=== PATIENT | female | born 1930 | race Caucasian/White ===

== ENCOUNTER 2016-12-20 15:32 | Emergency (ER) | payer BC ==
[~2016-12-20] VITALS: Ht 165.1 cm; Wt 102.0 kg
[~2016-12-20 15:32] MED LIST: CALC600T9 PO; CHOL2000 PO; FURO-85 PO; INSDGIPEN SC; LEVO112T4 PO; LISI-729 PO; LPR25 PO; LPT10 PO; MECL1TAB40 PO; OMEG500C2 PO; REPA2TAB13 PO; TRAM-10 PO; VALA1TAB31 PO; WARF5TAB7 PO; WARF6TAB5 PO
[2016-12-20 15:36] VITALS: Ht 165.1 cm; Wt 102.0 kg
[2016-12-20] MEDS ORDERED: WARF4TAB8 PO (17:15)
--- NOTE | 2016-12-20 17:33 | EMERGENCY ROOM VISIT NOTE ---
History Report prepared by Carlos: Moe Moreno Under the Supervision of: Dr. Moe Cabral M.D. First contact with patient: 16:40 Chief Complaint: KNEEPAIN Stated Complaint: IMPAIRED RT KNEE History of Present Illness The patient is a 86 year old female who presents to the Emergency Room with complaints of persistent right sided knee pain beginning about 1 week ago. She describes her pain as sharp and notes it radiates up and down her legs. She states she was seen by an orthopedist last week ago and had x-rays taken and was given medications. She reports the orthopedist noticed crystals on the x- rays. The patient recalls twisting her knee 6 months ago. She notes the pain is worsened with walking, and she finds some relief with applying heat. The patient denies any fever, chills, chest pain, or shortness of breath. She also denies any recent trauma. She denies any history of gout. The patient takes Coumadin for atrial fibrillation. She has been taking Tylenol, but stopped when the pain began. Source of History: patient, spouse/significant other Onset: about 1 week ago Position: knee (right) Quality: sharp, other (radiates up and down leg) Timing: other (persistent) Modifying Factors (Worsening): other (walking) Modifying Factors (Relieving): heat Associated Symptoms: No SOB, No chest pain, No chills, No fevers Review of Systems See HPI for pertinent positives & negatives. A total of 10 systems reviewed and were otherwise negative. Past Medical & Surgical Medical Problems: (1) Benign essential hypertension (2) Chronic kidney disease stage 3 (3) Diabetes mellitus type 2 (4) Hypercholesterolemia (5) Hypothyroidism (6) Iron deficiency (7) Obesity (8) Osteoarthritis of hip Old medical records were reviewed. Nurse's notes were reviewed and I agree with. Family History Diabetes mellitus Hypertension Social History Smoking Status: Never Smoker Drug Use: none Marital Status: Housing Status: lives with significant other Occupation Status: retired Current/Historical Medications Scheduled Atorvastatin (Atorvastatin Calcium), 10 MG PO HS Cholecalciferol (Vitamin D3), 1 CAP PO DAILY Cranberry (Vaccinium Macrocarp (Cranberry), 1 CAP PO DAILY Furosemide (Lasix), 20 MG PO DAILY Gabapentin (Neurontin), 300 MG PO BID Insulin Glargine (Lantus Solostar), 22 UNITS SC HS Levothyroxine Sodium (Levothyroxine Sodium), 112 MCG PO DAILY Lisinopril (Zestril), 5 MG PO DAILY Metoprolol Tartrate (Lopressor), 25 MG PO BID Multiple Vitamin (Multivitamin), 1 TAB PO DAILY Repaglinide (Prandin), 2-4 MG PO UD Warfarin Sod (Jantoven), 5 MG PO 2XWK Warfarin Sod (Jantoven), 4 MG PO 5XWK Scheduled PRN Meclizine HCl (Meclizine HCl), 1-2 TAB PO Q6 PRN for Dizziness or Vertigo Tramadol (Ultram), 50 MG PO Q4H PRN for Pain Miscellaneous Medications Insulin Lispro (Human) (Humalog Kwikpen) Allergies Coded Allergies: No Known Allergies (Unverified , 03/02/15) Physical Exam Vital Signs Date Time Temp Pulse Resp B/P Pulse Ox O2 Delivery O2 Flow Rate FiO2 12/20/16 22:06 36.6 59 16 153/59 95 12/20/16 22:02 59 16 153/59 95 Room Air 12/20/16 20:19 61 16 145/57 99 Room Air 12/20/16 19:28 74 16 168/70 94 Room Air 12/20/16 17:45 50 18 179/70 97 Room Air 12/20/16 15:36 36.6 55 18 121/69 97 Room Air Physical Exam General: Non ill appearing older female, mildly hard of hearing but answers questions appropriately. HEENT: Normal cephalic atraumatic. Pupils are equal round and reactive to light. Extraocular movements are intact. Oropharynx is pink with moist mucous membranes. No swelling of the mouth lips or tongue. Neck: Supple with a midline trachea. No meningeal signs or stiffness, no JVD or bruits. No Stridor. Chest: Scattered wheezing, and dry cough noted. Heart: regular rate and rhythm. Abdomen: Soft nontender, nondistended without rebound guarding or rigidity. Extremities: Lower extremity trace edema. Knee is not red or warm. No evidence of infection. Full range of motion. Spine/Back. Non tender to palpation. No CVA tenderness Skin: Good turgor without rashes. Neurologic exam: Cranial nerves two through 12 are intact. Motor and sensation are intact and symmetrical throughout. Medical Decision & Procedures ER Provider Diagnostic Interpretation: X ray results as stated below per my interpretation and radiologist interpretation. Other radiology results as stated below per my review and radiologist interpretation: RIGHT KNEE 2 VIEWS FINDINGS: There is no fracture or dislocation. Vascular calcifications are noted. The bones are osteopenic. Trace knee effusion. Chondrocalcinosis. Mild tricompartmental osteoarthritis demonstrated by cartilage space narrowing. No radiopaque foreign bodies. IMPRESSION: 1. No fractures within the right knee. 2. Trace knee effusion. 3. Chondrocalcinosis and mild osteoarthritis. Electronically signed by: Bryan Payan M.D. 12/20/2016 6:21 PM Dictated Date/Time: 12/20/2016 6:20 PM Laboratory Results 12/20/16 18:35 Red Blood Count 4.19, Mean Corpuscular Volume 92.8, Mean Corpuscular Hemoglobin 31.7, Mean Corpuscular Hemoglobin Concent 34.2, Mean Platelet Volume 11.3, Neutrophils (%) (Auto) 56.2, Lymphocytes (%) (Auto) 26.2, Monocytes (%) (Auto) 13.8, Eosinophils (%) (Auto) 3.1, Basophils (%) (Auto) 0.4, Neutrophils # (Auto ) 5.81, Lymphocytes # (Auto) 2.71, Monocytes # (Auto) 1.43, Eosinophils # (Auto ) 0.32, Basophils # (Auto) 0.04 12/20/16 18:35 Test 12/20/16 18:35 12/20/16 20:18 White Blood Count 10.34 K/uL (4.8-10.8) Red Blood Count 4.19 M/uL (4.2-5.4) Hemoglobin 13.3 g/dL (12.0-16.0) Hematocrit 38.9 % (37-47) Mean Corpuscular Volume 92.8 fL (80-100) Mean Corpuscular Hemoglobin 31.7 pg (25-34) Mean Corpuscular Hemoglobin Concent 34.2 g/dl (32-36) Platelet Count 236 K/uL (130-400) Mean Platelet Volume 11.3 fL (7.4-10.4) Neutrophils (%) (Auto) 56.2 % Lymphocytes (%) (Auto) 26.2 % Monocytes (%) (Auto) 13.8 % Eosinophils (%) (Auto) 3.1 % Basophils (%) (Auto) 0.4 % Neutrophils # (Auto) 5.81 K/uL (1.4-6.5) Lymphocytes # (Auto) 2.71 K/uL (1.2-3.4) Monocytes # (Auto) 1.43 K/uL (0.11-0.59) Eosinophils # (Auto) 0.32 K/uL (0-0.5) Basophils # (Auto) 0.04 K/uL (0-0.2) RDW Standard Deviation 44.4 fL (36.4-46.3) RDW Coefficient of Variation 13.2 % (11.5-14.5) Immature Granulocyte % (Auto) 0.3 % Immature Granulocyte # (Auto) 0.03 K/uL (0.00-0.02) Erythrocyte Sedimentation Rate 21 mm/hr (0-21) Prothrombin Time 21.3 SECONDS (9.0-12.0) Prothromb Time International Ratio 1.9 (0.9-1.1) Activated Partial Thromboplast Time 31.5 SECONDS (21.0-31.0) Partial Thromboplastin Ratio 1.2 Anion Gap 9.0 mmol/L (3-11) Est Creatinine Clear Calc Drug Dose 25.6 ml/min Estimated GFR () 27.4 Estimated GFR (Non- 23.6 BUN/Creatinine Ratio 25.1 (10-20) Uric Acid 8.4 mg/dl (2.6-7.2) Calcium Level 9.3 mg/dl (8.5-10.1) Total Bilirubin 1.3 mg/dl (0.2-1) Direct Bilirubin 0.2 mg/dl (0-0.2) Aspartate Amino Transf (AST/SGOT) 19 U/L (15-37) Alanine Aminotransferase (ALT/SGPT) 29 U/L (12-78) Alkaline Phosphatase 78 U/L (45-117) C-Reactive Protein 0.47 mg/dl (0-0.29) Total Protein 7.6 gm/dl (6.4-8.2) Albumin 4.0 gm/dl (3.4-5.0) Lipase 499 U/L (73-393) Bedside Glucose 118 mg/dl (70-90) Laboratory studies as stated above per my review. Medications Administered Medications (Trade) Dose Ordered Sig/Tadeo Route Start Time Stop Time Status Last Admin Dose Admin Tramadol HCl (Ultram Tab) 50 mg NOW STAT PO 12/20/16 17:58 12/20/16 18:00 DC 12/20/16 18:03 50 MG Tramadol HCl (Ultram Tab) 50 mg NOW STAT PO 12/20/16 21:27 12/20/16 21:28 DC 12/20/16 21:36 50 MG ED Course 1721: Past medical records reviewed. The patient was evaluated in room A11B, and a complete history and physical examination were performed. 1757: Ordered Tramadol HCl 50 mg PO. 2126: Ordered Tramadol HCl 50 mg PO. 2199: Upon reevaluation, the patient is doing well. I discussed the results and treatment plan with the patient. She verbalized agreement of the treatment plan. The patient was discharged home. Medical Decision Differentials include infection arthritis hematoma electrolyte or metabolic abnormality This atient comes in as described above. She was placed in room A 11. She is here for right knee pain. The knee itself is not red or warm and it's anteriorly where she hurts. She has nothing to suggest DVT. She has no evidence of neurovascular compromise or compartment syndrome and has good distal pulses. She has no fever or white count to suggest infection. Inflammatory markers are not elevated .her x-ray shows degenerative changes. Her INR is therapeutic. She was given Ultram which she says she's had before and did well with this she required additional dose while she was here is resting very comfortably with this feels up to going home. I will have her use an an Curt wrap and give her Ultram to go home with and have follow-up with Dr. Nation. She had been started on a pill from him and it is unclear what this was her I told her to take Ultram instead as it seems he working better. She should return if: increasing pain, redness or warmth fever chills, worsening of symptoms, any new problems concerns. She is happy with plan and was discharged home. Impression Primary Impression: Right knee pain Additional Impressions: Arthritis Anticoagulated on Coumadin Scribe Attestation The scribe's documentation has been prepared under my direction and personally reviewed by me in its entirety. I confirm that the note above accurately reflects all work, treatment, procedures, and medical decision making performed by me. Departure Information Dispostion Home / Self-Care Prescriptions Tramadol (Ultram) 50 Mg Tab 50 MG PO Q4H Y for Pain, #14 TAB Prov: Moe Cabral M.D. 12/20/16 Referrals RV. Gray MD (PCP) Patient Instructions [facility] Additional Instructions Rest. Drink plenty of fluids. May use Ultram/tramadol 50 mg, 1 pill every 4-6 hours as needed for pain This replaces your medicine from Dr. Pisano and do not take with any other sedating or narcotic medications Return if: Increasing pain, numbness or weakness, worsening of symptoms, fever chills, any new problems or concerns Be careful getting up and down. Follow-up with Dr. Pisano in 1-2 days recheck. Problem Qualifiers
[2016-12-20] MEDS ORDERED: CRAN1CAP6 PO (17:56)
[2016-12-20] MEDS ORDERED: MULTTAB58 PO (17:56)
[2016-12-20] MEDS ORDERED: NRN/300 PO (17:56)
[2016-12-20] MEDS ORDERED: INSU100I2 (17:56)
[2016-12-20] MEDS ORDERED: TRAMADOL HCL 50 MG TAB PO STA ×2 (17:58→21:27)
--- NOTE | 2016-12-20 18:22 | DIAGNOSTIC IMAGING REPORT ---
RIGHT KNEE 2 VIEWS HISTORY: eval for right knee pain Right COMPARISON: None. FINDINGS: There is no fracture or dislocation. Vascular calcifications are noted. The bones are osteopenic. Trace knee effusion. Chondrocalcinosis. Mild tricompartmental osteoarthritis demonstrated by cartilage space narrowing. No radiopaque foreign bodies. IMPRESSION: 1. No fractures within the right knee. 2. Trace knee effusion. 3. Chondrocalcinosis and mild osteoarthritis. Electronically signed by: Bryan Payan M.D. 12/20/2016 6:21 PM Dictated Date/Time: 12/20/2016 6:20 PM
[2016-12-20 18:51] LABS: BASO % 0.4 %; BASO ABS # 0.04 K/uL (0-0.2); COMPLETE YES; EOS % 3.1 %; HEMATOCRIT 38.9 % (37-47); IG% 0.3 %; LYMPH % 26.2 %; LYMPH ABS # 2.71 K/uL (1.2-3.4); MEAN CELL VOLUME 92.8 fL (80-100); MEAN CORPUSCULAR HEMOGLOBIN 31.7 pg (25-34); MEAN CORPUSCULAR HGB CONC 34.2 g/dl (32-36); MEAN PLATELET VOLUME 11.3 fL (7.4-10.4); MONO % 13.8 %; NEUT % 56.2 %; PLATELET COUNT 236 K/uL (130-400); RED BLOOD COUNT 4.19 M/uL (4.2-5.4); WHITE BLOOD COUNT 10.34 K/uL (4.8-10.8)
[2016-12-20 19:09] LABS: INR 1.9 (0.9-1.1); PARTIAL THROMBOPLASTIN RATIO 1.2; PROTHROMBIN TIME (PATIENT) 21.3 SECONDS (9.0-12.0)
[2016-12-20 19:10] LABS: BUN/CREATININE RATIO 25.1 (10-20); C-REACTIVE PROTEIN 0.47 mg/dl (0-0.29); CALCIUM 9.3 mg/dl (8.5-10.1); CREATININE 1.9 mg/dl (0.60-1.20); POTASSIUM 3.7 mmol/L (3.5-5.1)
[2016-12-20 19:15] LABS: URIC ACID 8.4 mg/dl (2.6-7.2)
[2016-12-20] MEDS ORDERED: TRAM-10 PO (21:59)
[2016-12-20 22:06] VITALS: BP 153/59; PULSE 59; TEMP 36.6; O2SAT 95
== END 2016-12-20 22:07 | disposition home or self-care (01) ==
LOC: C.EDB 15:33 → C.EDA 22:07
DX: M11.261 Other chondrocalcinosis, right knee (principal); M17.9 Osteoarthritis of knee, unspecified; M25.461 Effusion, right knee; M25.561 Pain in right knee; Z79.01 Long term (current) use of anticoagulants; Z79.899 Other long term (current) drug therapy; E03.9 Hypothyroidism, unspecified; N18.3 Chronic kidney disease, stage 3 (moderate)

== ENCOUNTER → 2017-02-28 | Outpatient (CLI) | payer BC ==
[~2017-02-28] MED LIST changes: -CALC600T9 PO; +CRAN1CAP6 PO; +INSU100I2; +MULTTAB58 PO; +NRN/300 PO; -OMEG500C2 PO; +REPA2TAB12 PO; -REPA2TAB13 PO; -VALA1TAB31 PO; +WARF4TAB8 PO; -WARF6TAB5 PO
[2017-02-28 12:42] LABS: HEMATOCRIT 38.7 % (37-47); MEAN CELL VOLUME 96.5 fL (80-100); MEAN CORPUSCULAR HEMOGLOBIN 32.2 pg (25-34); MEAN CORPUSCULAR HGB CONC 33.3 g/dl (32-36); MEAN PLATELET VOLUME 12.4 fL (7.4-10.4); PLATELET COUNT 196 K/uL (130-400); RED BLOOD COUNT 4.01 M/uL (4.2-5.4); WHITE BLOOD COUNT 7.79 K/uL (4.8-10.8)
[2017-02-28 12:55] LABS: MANUAL MICROSCOPIC REQUIRED? NO; REVIEW REQ? NO; URINE APPEARANCE CLEAR (CLEAR); URINE BILIRUBIN NEG (NEG); URINE COLOR YELLOW; URINE EPITHELIAL CELL AUTO 0-5 /lpf (0-5); URINE NITRITE POS (NEG); URINE SPECIFIC GRAVITY 1.013 (1.000-1.030); UROBILINOGEN NEG (NEG)
[2017-02-28 13:02] LABS: ESTIMATED AVERAGE GLUCOSE 171 mg/dl; HA1C FLAG Normal (Normal)
[2017-02-28 13:11] LABS: URINE PROTIEN/CREAT RATIO 0.2 (0-0.2); URINE TOTAL PROTEIN 9.8 mg/dl (0-11.9)
[2017-02-28 13:34] LABS: BLOOD UREA NITROGEN 45 mg/dl (7-18); BUN/CREATININE RATIO 26.7 (10-20); CALCIUM 9.9 mg/dl (8.5-10.1); CARBON DIOXIDE 25 mmol/L (21-32); CHLORIDE 112 mmol/L (98-107); GLUCOSE 68 mg/dl (70-99); PHOSPHORUS 3.5 mg/dl (2.5-4.9); POTASSIUM 3.7 mmol/L (3.5-5.1); SODIUM 147 mmol/L (136-145)
== END | disposition home or self-care (01) ==
LOC: C.LAB1850 09:44
PROVIDERS: ATTEND Internal Medicine Nephrology
DX: E11.65 Type 2 diabetes mellitus with hyperglycemia (principal); E11.22 Type 2 diabetes mellitus with diabetic chronic kidney disease; I12.9 Hypertensive chronic kidney disease with stage 1 through stage 4 chronic kidney disease, or unspecified chronic kidney disease; N18.3 Chronic kidney disease, stage 3 (moderate); R80.9 Proteinuria, unspecified; E55.9 Vitamin D deficiency, unspecified

== ENCOUNTER → 2017-08-21 | Outpatient (CLI) | payer BC ==
[~2017-08-21] MED LIST changes: -TRAM-10 PO
[2017-08-21 15:06] LABS: CHOLESTEROL/HDL RATIO 2.5; THYROID STIMULATING HORMONE 0.536 uIu/ml (0.300-4.500)
[2017-08-22 06:54] LABS: ESTIMATED AVERAGE GLUCOSE 160 mg/dl; HA1C FLAG Normal (Normal)
== END | disposition home or self-care (01) ==
LOC: C.LAB1850 12:18
PROVIDERS: ATTEND Nurse Practitioner Family
DX: E11.65 Type 2 diabetes mellitus with hyperglycemia (principal)

== ENCOUNTER → 2017-09-07 | Outpatient (CLI) | payer BC ==
[2017-09-07 12:16] LABS: HEMATOCRIT 37.3 % (37-47); MEAN CELL VOLUME 95.4 fL (80-100); MEAN CORPUSCULAR HEMOGLOBIN 31.2 pg (25-34); MEAN CORPUSCULAR HGB CONC 32.7 g/dl (32-36); PLATELET COUNT 188 K/uL (130-400); RED BLOOD COUNT 3.91 M/uL (4.2-5.4); WHITE BLOOD COUNT 7.66 K/uL (4.8-10.8)
[2017-09-07 12:51] LABS: ESTIMATED AVERAGE GLUCOSE 166 mg/dl; HA1C FLAG Normal (Normal)
[2017-09-07 12:53] LABS: BLOOD UREA NITROGEN 34 mg/dl (7-18); BUN/CREATININE RATIO 19.3 (10-20); CALCIUM 9.2 mg/dl (8.5-10.1); CARBON DIOXIDE 26 mmol/L (21-32); CHLORIDE 110 mmol/L (98-107); CREATININE 1.78 mg/dl (0.60-1.20); GLUCOSE 180 mg/dl (70-99); PHOSPHORUS 3.6 mg/dl (2.5-4.9); POTASSIUM 4.3 mmol/L (3.5-5.1); SODIUM 142 mmol/L (136-145)
[2017-09-07 13:07] LABS: URINE TOTAL PROTEIN < 5.0 mg/dl (0-11.9)
[2017-09-07 13:44] LABS: URINE APPEARANCE CLEAR (CLEAR); URINE BILIRUBIN NEG (NEG); URINE COLOR YELLOW; URINE EPITHELIAL CELL AUTO 0-5 /lpf (0-5); URINE NITRITE NEG (NEG); URINE SPECIFIC GRAVITY 1.016 (1.000-1.030); UROBILINOGEN NEG (NEG)
[2017-09-07 13:46] LABS: MANUAL MICROSCOPIC REQUIRED? NO; REVIEW REQ? NO
== END | disposition home or self-care (01) ==
LOC: C.LAB1850 11:01
PROVIDERS: ATTEND Internal Medicine Nephrology
DX: I10 Essential (primary) hypertension (principal); N18.3 Chronic kidney disease, stage 3 (moderate); R42 Dizziness and giddiness; R80.9 Proteinuria, unspecified; E55.9 Vitamin D deficiency, unspecified; E11.9 Type 2 diabetes mellitus without complications

== ENCOUNTER → 2017-11-13 | Day surgery (SDC) | payer BC ==
[2017-10-16 10:38] VITALS: Ht 166.4 cm; Wt 100.0 kg
[~2017-11-13] VITALS: Ht 166.4 cm; Wt 100.0 kg
[~2017-11-13] MED LIST changes: +500ML BSS 0.3ML EPI 1:1000PF IRRIG ONE; +ACETAMINOPHEN 325 MG TAB PO PRN; +AMVISC PLUS 0.8ML SYRINGE INT OCU ONE; +ATROPINE SULFATE 0.1 MG/ML 5ML SYR IV PRN; +BRIMONIDINE TART 0.2% OP SOLN PER DROP CHARGE ONE; +BSS FLUSH ONE; -CHOL2000 PO; +CHOL20007 PO; -CRAN1CAP6 PO; +ENDOCOAT 0.85ML SYRINGE INT OCU ONE; +EpHEDrine SULFATE INJ 50 MG/ML AMP IV PRN; +EpINEphrine INJ 1MG/ML AMP 1 MG/ML AMP ONE; +GABA-112 PO; +GABA-113 PO; +INSDGI SC; -INSDGIPEN SC; -INSU100I2; +INSU100I2 SC; +LACTATED RINGER'S 1000ML 500 ML IV SCH; +LIDOCAINE 4% OP SOLN DROP CHARGE ONE; +LIDOCAINE 4% OP SOLN DROP CHARGE OPR SCH; +LIDOCAINE HCL 1% MPF 2 ML VIAL ONE; -LISI-729 PO; +LISI5TAB PO; -LPR25 PO; +METO25TA56 PO; +MIDAZOLAM HCL 1 MG/ML 2ML VIAL ONE; +MOXIFLOXACIN OPH SOLN PER DROP CHARGE ONE; +MULT-190 PO; -MULTTAB58 PO; -NRN/300 PO; +POVIDONE-IODINE OP SOLN 30 ML BTL ONE; +PROPARACAINE 0.5% OP SOLN PER DROP CHARGE OPR SCH; -REPA2TAB12 PO; +TOBRAMYCIN/DEXAMETHASONE OPH OINT PER APPLN CHARGE ONE; -WARF4TAB8 PO; -WARF5TAB7 PO; +WARF5TAB90 PO; +WARF7.5T PO
[2017-11-13] MEDS: PHENYLEPHRINE HCL 2.5% OP SOLN PER DROP CHARGE OPR SCH ×2 (07:38→07:44)
--- NOTE | 2017-11-13 07:38 | History & Physical Bridge - SC ---
H&P Re-Evaluation Bridge Note: I have examined the patient, reviewed the History & Physical and in the interval since the performance of the History & Physical I have noted the following changes of clinical significance: No changes noted
[2017-11-13] MEDS: TROPICAMIDE 1% OP SOLN PER DROP CHARGE OPR SCH ×2 (07:39→07:45)
[2017-11-13] MEDS: CYCLOPENTOLATE HCL 1% OP SOLN PER DROP CHARGE OPR SCH ×2 (07:40→07:46)
[2017-11-13] MEDS: KETOROLAC 0.5% OP SOLN PER DROP CHARGE OPR SCH ×2 (07:41→07:47)
[2017-11-13] MEDS: MOXIFLOXACIN OPH SOLN PER DROP CHARGE OPR SCH ×2 (07:42→07:48)
--- NOTE | 2017-11-13 08:41 | [facility] Operative Report ---
Operative Report Operative Date Nov 13, 2017. Pre-Operative Diagnosis Cataract Right Eye Post-Operative Diagnosis Same Procedure(s) Performed Right Cataract Phacoemulsification With Intraocular Lens Implant Surgeon Dr. Velarde Parachute Manufacturing Supervisor Surgeon(s) None Estimated Blood Loss 0 Findings cataract right eye Fluids (cc crystalloids) see anesthesia record Specimens None Drains none Anesthesia local with sedation Complication(s) None Disposition Recovery Room / PACU Implants mx60 25.0 Indications decreased vision right eye Description of Procedure After informed consent was obtained in the holding area the patient was wheeled back to the operating room where cardiac monitoring leads and oxygen by nasal cannula was administered by Anesthesia. Gentle IV sedation was given, and the patient's right eye was prepped and draped in usual sterile fashion. A wire lid speculum was placed into the right eye and the operating microscope was swung into position. Using 0.12 forceps and a Supersharp blade a paracentesis port was made 2 o'clock hours away from the 9 o'clock position of the patient's right eye. 1% non-preserved Lidocaine was then injected into the anterior chamber for anesthesia. A 2.0 mm keratotome blade was then used to make a shelved clear corneal incision at the 9 o'clock position of the right eye. Amvisc was injected into the anterior chamber and a cystotome and Utrata forceps were used to perform a curvilinear capsulorrhexis. BSS on a hydrodissection cannula was used to hydrodissect the lens nucleus away from the capsular bag. The phacoemulsification handpiece was then used in a stop and chop fashion to remove the lens nucleus. The irrigation and aspiration handpiece was then used to remove the residual cortical material. Amvisc was injected into the capsular bag and anterior chamber and a Bausch & Lomb MX60 25.0 Diopter intraocular lens was injected into the capsular bag. Irrigation and aspiration handpiece was used to remove the residual viscoelastic material. The wounds were hydrated and noted to be watertight. The wire lid speculum was removed from the eye. Vigamox, Brimonidine, and TobraDex ointment were placed on the eye and it was shielded. It should be noted that EndoCoat was used extensively during the case to protect the cornea endothelium. DISPOSITION: The patient tolerated the procedure well and was wheeled to the post anesthesia care unit in stable condition. I attest to the content of the Intraoperative Record and any orders documented therein. Any exceptions are noted below. I attest to the content of the Intraoperative Record and any orders documented therein. Any exceptions are noted below.
--- NOTE | 2017-11-13 08:42 | Discharge Instructions-SurgCtr ---
Discharge Instructions Date of Service Nov 13, 2017. Visit Reason for Visit: Cataract Right Eye Discharge Discharge Diagnosis / Problem: cataract right eye Discharge Goals Goal(s): Improve function Medications Stopped Medications Name(s): Take half of insulin this morning, but didn't take. Activity Recommendations Activity Limitations: per Instructions/Follow-up section Lifting Limitations: no more than 5 pounds Anesthesia . Post Anesthesia Instructions: If you have had General Anesthesia or IV Sedation: * Do not drive today. * Resume driving when surgeon permits. * Do not make important decisions or sign legal documents today. * Call surgeon for: 1. Temperature elevations greater than 101 degrees F. 2. Uncontrollable pain. 3. Excessive bleeding. 4. Persistent nausea and vomiting. 5. Medication intolerance (nausea, vomiting or rash). * For nausea and vomiting use only clear liquids such as: tea, soda, bouillon until nausea subsides, then gradually increase diet as tolerated. * If you have any concerns or questions, call your surgeon's office. If physician is unavailable and it is an emergency, call 911 or go to the nearest emergency room. . Instructions / Follow-Up Instructions / Follow-Up ACTIVITY RECOMMENDATIONS: * Light activities * You may walk outside, read, watch television. * Mild irritation and blurred vision are common for the first few days, redness around the white part of the eye is common. MEDICATIONS: Resume previous medications unless instructed otherwise by your surgeon. Eye drops (today and tomorrow): Cipro - one drop in operative eye every 2 hours while awake Prednisolone 1% - one drop in operative eye every 2 hours while awake Ilevro - one drop operative eye 1 times daily SPECIAL CARE INSTRUCTIONS: * If any problems or concerns, please call Dr. Velarde's office at . * Keep plastic shield taped over eye to sleep at night. * Keep plastic shield taped over eye except to administer eye drops. * Keep plastic shield on until office visit the following day. FOLLOW UP VISIT: Follow-up with Dr. Velarde in the [place] office as scheduled. If not already scheduled, please call the office at . Diet Recommendations Home Diet: resume previous diet Procedures Procedures Performed: Right Cataract Phacoemulsification With Intraocular Lens Implant Pending Studies Studies pending at discharge: no Medical Emergencies . Who to Call and When: Medical Emergencies: If at any time you feel your situation is an emergency, please call 911 immediately. . Non-Emergent Contact Non-Emergency issues call your: Front Elevator Operator . . "Provider Documentation" section prepared by Dada Velarde. .
--- NOTE | 2017-11-13 08:58 | Anesthesiology Progress Note ---
Anesthesia Post Op Note Date & Time Nov 13, 2017 at 08:58 Vital Signs Pain Intensity: 0 Vital Signs Past 12 Hours Date Time Temp Pulse Resp B/P (MAP) Pulse Ox O2 Delivery O2 Flow Rate FiO2 11/13/17 08:45 36.5 50 18 162/81 (108) 96 Room Air 11/13/17 07:25 36.4 52 20 167/67 (100) 95 Room Air Notes Mental Status: alert / awake / arousable, participated in evaluation Nausea / Vomiting: adequately controlled Pain: adequately controlled Airway Patency, RR, SpO2: stable & adequate BP & HR: stable & adequate Hydration State: stable & adequate Anesthetic Complications: no major complications apparent
[2017-11-13 09:13] VITALS: BP 168/64; PULSE 50; O2SAT 97
== END | disposition home or self-care (01) ==
LOC: X.SURG 06:46
PROVIDERS: ATTEND Ophthalmology
DX: H25.11 Age-related nuclear cataract, right eye (principal); E11.36 Type 2 diabetes mellitus with diabetic cataract; E11.22 Type 2 diabetes mellitus with diabetic chronic kidney disease; I12.9 Hypertensive chronic kidney disease with stage 1 through stage 4 chronic kidney disease, or unspecified chronic kidney disease; N18.9 Chronic kidney disease, unspecified; H35.3120 Nonexudative age-related macular degeneration, left eye, stage unspecified; I25.2 Old myocardial infarction; E78.5 Hyperlipidemia, unspecified; E03.9 Hypothyroidism, unspecified; M19.90 Unspecified osteoarthritis, unspecified site; F41.9 Anxiety disorder, unspecified; E66.9 Obesity, unspecified; Z68.36 Body mass index [BMI] 36.0-36.9, adult; Z79.01 Long term (current) use of anticoagulants; Z79.4 Long term (current) use of insulin; Z79.899 Other long term (current) drug therapy

== ENCOUNTER → 2017-11-27 | Day surgery (SDC) | payer BC ==
[2017-11-23 08:09] VITALS: Ht 166.4 cm; Wt 100.0 kg
[~2017-11-27] VITALS: Ht 166.4 cm; Wt 100.0 kg
[~2017-11-27] MED LIST changes: +LIDOCAINE 4% OP SOLN DROP CHARGE OPL SCH; -LIDOCAINE 4% OP SOLN DROP CHARGE OPR SCH; +PROPARACAINE 0.5% OP SOLN PER DROP CHARGE OPL SCH; -PROPARACAINE 0.5% OP SOLN PER DROP CHARGE OPR SCH
[2017-11-27] MEDS: PHENYLEPHRINE HCL 2.5% OP SOLN PER DROP CHARGE OPL SCH ×2 (07:09→07:15)
[2017-11-27] MEDS: TROPICAMIDE 1% OP SOLN PER DROP CHARGE OPL SCH ×2 (07:10→07:16)
[2017-11-27] MEDS: CYCLOPENTOLATE HCL 1% OP SOLN PER DROP CHARGE OPL SCH ×2 (07:11→07:17)
[2017-11-27] MEDS: KETOROLAC 0.5% OP SOLN PER DROP CHARGE OPL SCH ×2 (07:12→07:18)
[2017-11-27] MEDS: MOXIFLOXACIN OPH SOLN PER DROP CHARGE OPL SCH ×2 (07:13→07:23)
--- NOTE | 2017-11-27 08:02 | [facility] Operative Report ---
Operative Report Operative Date Nov 27, 2017. Pre-Operative Diagnosis Left Eye Cataract Post-Operative Diagnosis Same Procedure(s) Performed Left Cataract Phacoemulsification With Intraocular Lens Implant Surgeon Dr. Gregorio Velarde Cnc Mechanic Surgeon(s) None Estimated Blood Loss 0 Findings cataract left eye Fluids (cc crystalloids) see anesthesia record Specimens None Drains none Anesthesia local with sedation Complication(s) None Disposition Recovery Room / PACU Implants mx60 23.5 Indications decreased vision left eye Description of Procedure After informed consent was obtained in the holding area the patient was wheeled back to the operating room where cardiac monitoring leads and oxygen by nasal cannula was administered by Anesthesia. Gentle IV sedation was given, and the patient's left eye was prepped and draped in usual sterile fashion. A wire lid speculum was placed into the left eye and the operating microscope was swung into position. Using 0.12 forceps and a Supersharp blade a paracentesis port was made 2 o'clock hours away from the 3 o'clock position of the patient's left eye. 1% non-preserved Lidocaine was then injected into the anterior chamber for anesthesia. A 2.0 mm keratotome blade was then used to make a shelved clear corneal incision at the 3 o'clock position of the left eye. Amvisc was injected into the anterior chamber and a cystotome and Utrata forceps were used to perform a curvilinear capsulorrhexis. BSS on a hydrodissection cannula was used to hydrodissect the lens nucleus away from the capsular bag. The phacoemulsification handpiece was then used in a stop and chop fashion to remove the lens nucleus. The irrigation and aspiration handpiece was then used to remove the residual cortical material. Amvisc was injected into the capsular bag and anterior chamber and a Bausch & Lomb MX60 23.5 Diopter intraocular lens was injected into the capsular bag. Irrigation and aspiration handpiece was used to remove the residual viscoelastic material. The wounds were hydrated and noted to be watertight. The wire lid speculum was removed from the eye. Vigamox, Brimonidine, and TobraDex ointment were placed on the eye and it was shielded. It should be noted that EndoCoat was used extensively during the case to protect the cornea endothelium. DISPOSITION: The patient tolerated the procedure well and was wheeled to the post anesthesia care unit in stable condition. I attest to the content of the Intraoperative Record and any orders documented therein. Any exceptions are noted below. I attest to the content of the Intraoperative Record and any orders documented therein. Any exceptions are noted below.
[2017-11-27 08:04] VITALS: TEMP 36.3
--- NOTE | 2017-11-27 08:04 | Discharge Instructions-SurgCtr ---
Discharge Instructions Date of Service Nov 27, 2017. Visit Reason for Visit: Cataract Left Eye Discharge Discharge Diagnosis / Problem: cataract left eye Discharge Goals Goal(s): Improve function Activity Recommendations Activity Limitations: per Instructions/Follow-up section Lifting Limitations: no more than 5 pounds Anesthesia . Post Anesthesia Instructions: If you have had General Anesthesia or IV Sedation: * Do not drive today. * Resume driving when surgeon permits. * Do not make important decisions or sign legal documents today. * Call surgeon for: 1. Temperature elevations greater than 101 degrees F. 2. Uncontrollable pain. 3. Excessive bleeding. 4. Persistent nausea and vomiting. 5. Medication intolerance (nausea, vomiting or rash). * For nausea and vomiting use only clear liquids such as: tea, soda, bouillon until nausea subsides, then gradually increase diet as tolerated. * If you have any concerns or questions, call your surgeon's office. If physician is unavailable and it is an emergency, call 911 or go to the nearest emergency room. . Instructions / Follow-Up Instructions / Follow-Up ACTIVITY RECOMMENDATIONS: * Light activities * You may walk outside, read, watch television. * Mild irritation and blurred vision are common for the first few days, redness around the white part of the eye is common. MEDICATIONS: Resume previous medications unless instructed otherwise by your surgeon. Eye drops (today and tomorrow): Cipro - one drop in operative eye every 2 hours while awake Prednisolone 1% - one drop in operative eye every 2 hours while awake Ilevro - one drop operative eye 1 times daily SPECIAL CARE INSTRUCTIONS: * If any problems or concerns, please call Dr. Velarde's office at . * Keep plastic shield taped over eye to sleep at night. * Keep plastic shield taped over eye except to administer eye drops. * Keep plastic shield on until office visit the following day. FOLLOW UP VISIT: Follow-up with Dr. Velarde in the [place] office as scheduled. If not already scheduled, please call the office at . Diet Recommendations Home Diet: resume previous diet Procedures Procedures Performed: Left Cataract Phacoemulsification With Intraocular Lens Implant Pending Studies Studies pending at discharge: no Medical Emergencies . Who to Call and When: Medical Emergencies: If at any time you feel your situation is an emergency, please call 911 immediately. . Non-Emergent Contact Non-Emergency issues call your: Punch Press Feeder . . "Provider Documentation" section prepared by Dada Velarde. .
--- NOTE | 2017-11-27 08:31 | Anesthesia Progress Nt - [facility] ---
Anesthesia Post Op Note Date & Time Nov 27, 2017 at 08:31 Vital Signs Pain Intensity: 0 Vital Signs Past 12 Hours Date Time Temp Pulse Resp B/P (MAP) Pulse Ox O2 Delivery O2 Flow Rate FiO2 11/27/17 08:04 36.3 60 20 187/72 (110) 94 Room Air 11/27/17 07:00 36.6 62 20 175/79 (111) 96 Room Air Notes Mental Status: alert / awake / arousable, participated in evaluation Pt Amnestic to Procedure: Yes Nausea / Vomiting: adequately controlled Pain: adequately controlled Airway Patency, RR, SpO2: stable & adequate BP & HR: stable & adequate Hydration State: stable & adequate Anesthetic Complications: no major complications apparent
[2017-11-27 08:36] VITALS: BP 173/65; PULSE 58; O2SAT 95
== END | disposition home or self-care (01) ==
LOC: X.SURG 06:40
PROVIDERS: ATTEND Ophthalmology
DX: H25.12 Age-related nuclear cataract, left eye (principal); E11.9 Type 2 diabetes mellitus without complications; H35.3120 Nonexudative age-related macular degeneration, left eye, stage unspecified; I10 Essential (primary) hypertension; E07.9 Disorder of thyroid, unspecified

== ENCOUNTER → 2018-01-04 | Outpatient (CLI) | payer BC ==
[~2018-01-04] MED LIST changes: -500ML BSS 0.3ML EPI 1:1000PF IRRIG ONE; -ACETAMINOPHEN 325 MG TAB PO PRN; -AMVISC PLUS 0.8ML SYRINGE INT OCU ONE; -ATROPINE SULFATE 0.1 MG/ML 5ML SYR IV PRN; -BRIMONIDINE TART 0.2% OP SOLN PER DROP CHARGE ONE; -BSS FLUSH ONE; -ENDOCOAT 0.85ML SYRINGE INT OCU ONE; -EpHEDrine SULFATE INJ 50 MG/ML AMP IV PRN; -EpINEphrine INJ 1MG/ML AMP 1 MG/ML AMP ONE; -LACTATED RINGER'S 1000ML 500 ML IV SCH; -LIDOCAINE 4% OP SOLN DROP CHARGE ONE; -LIDOCAINE 4% OP SOLN DROP CHARGE OPL SCH; -LIDOCAINE HCL 1% MPF 2 ML VIAL ONE; -MIDAZOLAM HCL 1 MG/ML 2ML VIAL ONE; -MOXIFLOXACIN OPH SOLN PER DROP CHARGE ONE; -POVIDONE-IODINE OP SOLN 30 ML BTL ONE; -PROPARACAINE 0.5% OP SOLN PER DROP CHARGE OPL SCH; -TOBRAMYCIN/DEXAMETHASONE OPH OINT PER APPLN CHARGE ONE
[2018-01-04 13:42] LABS: HEMOGLOBIN A1C 7.4 % (4.5-5.6)
[2018-01-04 15:26] LABS: BLOOD UREA NITROGEN 35 mg/dl (7-18); CALCIUM 8.9 mg/dl (8.5-10.1); CARBON DIOXIDE 26 mmol/L (21-32); CREATININE 1.98 mg/dl (0.60-1.20); GLUCOSE 261 mg/dl (70-99); POTASSIUM 4.7 mmol/L (3.5-5.1); SODIUM 139 mmol/L (136-145)
== END | disposition home or self-care (01) ==
LOC: C.LAB1850 11:12
PROVIDERS: ATTEND Internal Medicine Interventional Cardiology
DX: E11.22 Type 2 diabetes mellitus with diabetic chronic kidney disease (principal); E03.9 Hypothyroidism, unspecified; I10 Essential (primary) hypertension

== ENCOUNTER → 2018-03-14 | Outpatient (CLI) | payer BC ==
[2018-03-14 15:04] LABS: HEMOGLOBIN 12.7 g/dL (12.0-16.0); MEAN CELL VOLUME 92.7 fL (80-100); MEAN CORPUSCULAR HGB CONC 33.4 g/dl (32-36); MEAN PLATELET VOLUME 11.8 fL (7.4-10.4); PLATELET COUNT 196 K/uL (130-400); RED CELL DISTRIBUTION WIDTH CV 13.4 % (11.5-14.5); RED CELL DISTRIBUTION WIDTH SD 45.8 fL (36.4-46.3); WHITE BLOOD COUNT 6.87 K/uL (4.8-10.8)
[2018-03-14 15:38] LABS: ALBUMIN 3.5 gm/dl (3.4-5.0); BLOOD UREA NITROGEN 33 mg/dl (7-18); CALCIUM 9.1 mg/dl (8.5-10.1); CARBON DIOXIDE 25 mmol/L (21-32); CREATININE 2.03 mg/dl (0.60-1.20); GLUCOSE 199 mg/dl (70-99); PHOSPHORUS 3.7 mg/dl (2.5-4.9); POTASSIUM 4.3 mmol/L (3.5-5.1); SODIUM 140 mmol/L (136-145)
== END | disposition home or self-care (01) ==
LOC: C.LAB1850 13:18
PROVIDERS: ATTEND Internal Medicine Nephrology
DX: I12.9 Hypertensive chronic kidney disease with stage 1 through stage 4 chronic kidney disease, or unspecified chronic kidney disease (principal); N18.3 Chronic kidney disease, stage 3 (moderate); E11.22 Type 2 diabetes mellitus with diabetic chronic kidney disease; R80.9 Proteinuria, unspecified; E55.9 Vitamin D deficiency, unspecified

== ENCOUNTER 2019-09-16 16:03 | Inpatient (IN) ==
[2019-09-16 16:50] LABS: Basophils # (auto) 0.04 K/uL (0-0.2); Basophils % (auto) 0.6 %; Eosinophils # (auto) 0.39 K/uL (0-0.5); Eosinophils % (auto) 5.9 %; Hemoglobin 10.4 g/dL (12.0-16.0); Immature Granulocytes # (auto) 0.02 K/uL (0.00-0.02); Immature Granulocytes % (auto) 0.3 %; Lymphocytes # (auto) 1.98 K/uL (1.2-3.4); Lymphocytes % (auto) 30.1 %; Mean Corpuscular Hemoglobin 31.2 pg (25-34); Mean Corpuscular Hgb Conc 33.5 g/dL (32-36); Mean Corpuscular Volume 93.1 fL (80-100); Mean Platelet Volume 10.4 fL (7.4-10.4); Monocytes # (auto) 0.73 K/uL (0.11-0.59); Monocytes % (auto) 11.1 %; Neutrophils # (auto) 3.42 K/uL (1.4-6.5); Platelet Count 225 K/uL (130-400); RDW Coefficient of Variation 14.7 % (11.5-14.5); RDW Standard Deviation 50.2 fL (36.4-46.3); Red Blood Count 3.33 M/uL (4.2-5.4); White Blood Count 6.58 K/uL (4.8-10.8)
[2019-09-16 17:06] LABS: Albumin Level 3.3 gm/dl (3.4-5.0); BUN Creatinine Ratio 14.2 (10-20); Calcium 9.1 mg/dl (8.5-10.1); Creatinine Clr Calc Pharmacy 11.3 ml/min; Est GFR (African American) 10.5; Potassium 3.9 mmol/L (3.5-5.1)
[2019-09-16 17:09] LABS: Albumin Globulin Ratio 0.8 (0.9-2); Bilirubin,Total 0.7 mg/dl (0.2-1); Globulin 4.1 gm/dl (2.5-4.0); Total Protein 7.4 gm/dl (6.4-8.2)
[2019-09-16] MEDS ORDERED: SODIUM CHLORIDE 0.9% 500 ML IV ONE (17:22)
--- NOTE | 2019-09-16 18:23 | XRay Report ---
XR chest 1V portable CLINICAL HISTORY: 89 years-old Female presenting with weak. TECHNIQUE: Portable upright AP view of the chest was obtained. COMPARISON: 12/17/2018. FINDINGS: Atherosclerosis of the aortic arch. Cardiac silhouette enlarged. Tortuosity of the descending thoraci c aorta. Perihilar opacity on the right. The left retrocardiac region is not as well evaluated due to the presence of cardiomegaly and prominent pericardial fat pad as on prior exam. No large effusion o r pneumothorax. Osseous structures normal. A hiatal hernia may be present. IMPRESSION: 1. Right basilar opacity suspected. This could represent pneumonia. Asymmetric edema is considered l ess likely. PA and lateral views could be considered for confirmation. 2. Cardiomegaly. Electronically signed by: Adiel Pulido M.D. 09/16/2019 6:22 PM
[2019-09-16 18:30] LABS: Appearance Urine Clear (Clear); Bilirubin Urine Negative (Negative); Blood Urine 3+ (Negative); Color Urine Yellow; Glucose Urine UA Negative (Negative); Ketones Urine Negative (Negative); Leukocyte Esterase Urine Trace (Negative); Nitrite Urine Negative (Negative); Protein Urine 2+ (Negative); Urobilinogen Urine Negative (Negative)
[2019-09-16 18:32] LABS: Sulfosalicylic Acid Urine Positive (Negative)
[2019-09-16 18:36] LABS: RBC Urine >30 /hpf (0-4)
[2019-09-16 18:37] LABS: Bacteria Urine 1+ (Negative)
--- NOTE | 2019-09-16 20:32 | History & Physical Report ---
Date of Service September 16, 2019 Assessment & Plan (1) Weakness: Uncertain etiology See below for plans PT/OT pending (2) ROSA (acute kidney injury): Baseline CKD III with cr 1.5 Elevated to 4.1 on admission Uncertain etiology Possible dehydration Holding statin t/c renal US if no improvement on gentle IVF Follows with Dr. Palma, c/s pending (3) Abnormal CXR: ?? PNA on CXR, recs for PA/lat films--pending rocephin will cover as well WBC WNL (4) Abnormal finding on urinalysis: Abn as outpt and started on cipro yesterday UA noted for + leuk est, neg nitrites Change to rocephin given CXR finding Cx pending (5) Gout: Hx of gout, but pain has moved away from knee LE US pending (6) Diabetes mellitus with diabetic neuropathy: continue home meds SSI PRN A1c 9.0 on 09/09, will not recheck (7) Hypertension: Labile in the ED, due for HS meds continue home meds, given HS metoprolol PRN IV metoprolol, monitor (8) Anemia: Baseline 13.1, now at 10.4 Monitor Iron panel pending (9) AF (paroxysmal atrial fibrillation): stable, continue home meds Coumadin 5mg HS INR pending, will hold if elevated (10) Hyperlipidemia: Holding statin given ARF (11) Hypothyroidism: continue home meds TSH WNL on 09/09, will not recheck (12) DVT prophylaxis: Coumadin History of Present Illness Primary Care Provider: Mauri Hinojosa MD 89 y/o F c/o feeling unwell and weak. Pt states that this has been ongoing over the last 2 months. It is not getting worse, but it is also not getting better. Pt saw her PCP on 09/09 for routine f/u and this was discussed. Labs and UA were done at that time. She had a routine f/u with Dr. Palma on 09/12 and no new changes were made at that time. Pt notes that she was called after her appt with PCP and told she had a UTI. She states that she did have some burning and urgency prior to this, but it had resolved. She was started on cipro yesterday (sx occurred and resolved prior to cipro use). Pt states she has diarrhea x2 weeks, but it was better on Monday or Monday. She did have cramping prior to onset of diarrhea, but this resolved with diarrhea. She was having about 1 bowel movement per day. No n/v. Pt states that she gets gout in her R knee. She has been having increased LE pain moving into her entire LE since Monday. She took tylenol, but no help for this. She has ongoing issues with b/l L>R LE swelling at baseline. Pt states that she has had no issues with PO intake. She states her appetite is good. Pt denies fever, SOB, chest pain, n/v. Pt missed an appt with Dr. Palma today and at that time he noted that her cr was elevated over her usual. She was called and advised to come to the ED. Allergies Allergy/AdvReac Type Severity Reaction Status Date / Time No Known Allergies Allergy Unverified 09/09/19 10:26 Home Medications Home Medications Medication Instructions Recorded Confirmed Type atorvastatin 10 mg PO HS 12/17/18 09/09/19 History cholecalciferol (vitamin D3) 2,000 unit PO QAM 12/17/18 09/09/19 History [Vitamin D3] insulin glargine [Lantus Solostar 30 unit SUBCUT QDD 12/17/18 09/09/19 History U-100 Insulin] levothyroxine 112 mcg PO QAM 12/17/18 09/09/19 History vitamins A,C,T-thpt-sgilfy 1 cap PO BID 12/17/18 09/09/19 History [PreserVision AREDS] warfarin 5 mg PO HS 12/17/18 09/09/19 History lancets 33 gauge #400 ea 04/03/19 09/09/19 Rx furosemide 20 mg tablet 20 mg PO DAILY #90 tab 05/28/19 09/09/19 Rx metoprolol tartrate 25 mg tablet 25 mg PO BID #30 tab 06/19/19 09/09/19 Rx acetaminophen 325 mg tablet 650 mg PO Q4H PRN tab 07/31/19 09/09/19 History blood sugar diagnostic #10 ea 07/31/19 09/09/19 History insulin lispro 100) 100 unit/mL 10 units SUBCUT DAILY #7 ml 07/31/19 09/09/19 History subcutaneous pen gabapentin 100 mg capsule 100 mg PO QAM #30 cap 08/22/19 09/09/19 Rx gabapentin 300 mg capsule 300 mg PO HS #30 cap 08/22/19 09/09/19 Rx pen needle, diabetic 32 gauge x #360 ea 08/22/19 09/09/19 Rx 5/32" meclizine 12.5 mg tablet 12.5 mg PO TID PRN #30 tab 09/09/19 09/09/19 Rx ciprofloxacin HCl 250 mg tablet 250 mg PO BID #10 tab 09/11/19 Rx Past Med/Surg History Medical History Arthritis (Chronic) Basosquamous carcinoma of skin Closed fracture of shaft of humerus (Resolved 04/09/11) Pericardial effusion (Resolved) Surgical History S/P dilation and curettage Family History (Updated 09/16/19 @ 20:53 by Naheed Rangel DO) Mother Diabetes Hypertension Macular degeneration Hypothyroidism Social History (Updated 09/16/19 @ 20:53 by Naheed Rangel DO) Preferred Language: Syriac Communication Ability: Effective Visual Impairment: No Limitations Hearing Ability: Normal marital status: Current Living Situation: Spouse current occupational status: retired Feels Safe at Home: Yes Smoking Status: Never smoker Hx Alcohol Use: No Hx Substance Use: No Childhood Exposure to Second-Hand Smoke: No Seatbelt Use: always Review of Systems Review of Systems: Pertinent positives and negatives reviewed in HPI--all others negative Physical Exam Constitutional: WD/WN, vitals as above Eyes: normal visual boswell by confrontation and + anicteric sclerae Neck: normal visual inspection and trachea midline Respiratory: normal respiratory effort, lungs clear to auscultation Cardiovascular: Rate/Rhythm: regular rate and regular rhythm Gastrointestinal (Abdomen): Inspection/Auscultation: abdomen not distended Percussion/Palpation: abdomen soft; abdomen nontender Musculoskeletal: Head/Neck/Chest: normocephalic and head atraumatic b/l L> R pitting edema, peripheral pulses intact Skin: no rashes, warm and dry Neurologic: awake; not confused Speech / Cognition: normal speech Psychiatric: A+Ox3, euthymic affect Results & Data Vital Signs (Past 12 Hours) Vital Signs Temp Pulse Pulse Resp BP BP Pulse Ox 09/16/19 19:30 69 18 222/98 H 96 09/16/19 19:01 73 22 235/108 H 96 09/16/19 19:00 81 22 96 09/16/19 18:31 65 16 238/102 H 98 09/16/19 18:30 67 18 97 09/16/19 18:27 65 21 09/16/19 18:26 64 18 208/91 H 99 09/16/19 18:23 100 H 20 240/70 H 96 09/16/19 18:20 65 18 248/70 H 100 09/16/19 16:14 36.7 C 85 20 128/94 97 Diagnostic Findings CXR: ?? PNA, recs for PA/lat films Code Status & VTE Plan Code Status Full code, although pt states no prolonged mechanical life support, feeding tubes, etc VTE Prophylaxis Plan VTE Prophylaxis will be ordered: Yes PG Care Time/CCT Total # of Minutes Spent Total Time Spent with Patient: Total time spent is greater than 50% in coordination of care (as documented) at patient's floor/unit and/or counseling patient:
[2019-09-16] MEDS: CARBOHYDRATES FOR HYPOGLYCEMIA PO PRN (21:30)
[2019-09-16] MEDS ORDERED: MAGNESIUM HYDROXIDE SUSP 30 ML UDC PO PRN (21:31)
[2019-09-16] MEDS ORDERED: GLUCAGON FOR INJ 1 MG VIAL SQ PRN (21:31)
[2019-09-16] MEDS ORDERED: ONDANSETRON INJ 2 MG/ML 2 ML VIAL IV PRN (21:31)
[2019-09-16] MEDS ORDERED: METOPROLOL TARTRATE 1 MG/ML VIAL IV PRN (21:31)
[2019-09-16] MEDS ORDERED: MECLIZINE 12.5 MG TAB PO PRN (21:31)
[2019-09-16] MEDS ORDERED: GLUCOSE 40% GEL 15 GM TUBE PO PRN (21:31)
[2019-09-16] MEDS ORDERED: cefTRIAXone SODIUM 1,000 MG/50 ML BAG IV STA (21:31)
[2019-09-16] MEDS ORDERED: DEXTROSE 50% 50 ML SYRINGE IV PRN (21:31)
[2019-09-16] MEDS ORDERED: ACETAMINOPHEN 325 MG TAB PO PRN (21:31)
[2019-09-16] MEDS ORDERED: GLUCOSE 10 TABS/TUBE PO PRN (21:31)
[2019-09-16] MEDS ORDERED: METOPROLOL TARTRATE 1 MG/ML VIAL IV ONE (21:49)
[2019-09-16] MEDS ORDERED: ACETAMINOPHEN 325 MG TAB ONE (21:56)
[2019-09-16] MEDS: ACETAMINOPHEN 325 MG TAB PO PRN (21:57)
[2019-09-16] MEDS ORDERED: NSS + 20MEQ KCL 20 MEQ/1,000 ML BAG IV SCH (22:00)
[2019-09-16 22:10] LABS: INR 2.7 (0.9-1.1); Iron 81 mcg/dl (35-150); Prothrombin Time 25.9 Seconds (9.0-12.0); Total Iron Binding Capacity 270 mcg/dl (250-450)
--- NOTE | 2019-09-16 22:31 | Ultrasound Report ---
US venous doppler LE RT CLINICAL HISTORY: 89 years-old Female presenting with right lower extremity pain and swelling. TECHNIQUE: Real-time grayscale and color and spectral Doppler ultrasound imaging of the veins of the right lower extremity was performed. Compression and augmentation were also utilized. COMPARISON: None. FINDINGS: RIGHT: Common femoral vein: Patent. Greater saphenous vein (superficial): Patent. Deep femoral vein: Patent. Femoral vein: Patent. Popliteal vein: Patent. Calf veins: Patent. Other: None. IMPRESSION: No evidence of deep venous thrombosis. Electronically signed by: Adiel Pulido M.D. 09/16/2019 10:30 PM
--- NOTE | 2019-09-16 22:33 | XRay Report ---
XR chest 2V PA/lateral CLINICAL HISTORY: 89 years-old Female presenting with question of PNA on portable. TECHNIQUE: PA and lateral views of the chest were obtained. COMPARISON: 09/16/2019. FINDINGS: Atherosclerosis of the aortic arch. Cardiac silhouette enlarged. Diffuse heterogeneity of lung parenc hyma with coarsened lung markings. Opacity in the anterobasal right lower lobe. Lungs are hyperinflat ed. No pleural effusion or pneumothorax. Possible underlying osteopenia. Upper abdomen normal. IMPRESSION: 1. Anterobasal right lower lobe infiltrate concerning for pneumonia. This should be followed to reso lution to ensure the absence of an underlying lesion. 2. Suspected underlying emphysema. 3. Cardiomegaly. No volume overload. Electronically signed by: Adiel Pulido M.D. 09/16/2019 10:32 PM
[2019-09-16] MEDS: GABAPENTIN 300 MG CAP PO SCH (22:36)
--- NOTE | 2019-09-16 22:40 | Emergency Department Note ---
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 The patient states that she hasn't been feeling well for months and reports symptoms of tiredness, weakness, and swelling in her bilateral feet. She saw her PCP 1 week ago to get blood work and reported her symptoms. Her creatinine at that time came back elevated at 4.3. Her PCP planned to arrange further testing today but instead sent her to the ER for further evaluation. She denies abdominal pain, cough, rhinorrhea, and dysuria. The patient offers no additional complaints at this time. Home Medications Home Medications Medication Instructions Recorded Confirmed Type atorvastatin 10 mg PO HS 12/17/18 09/09/19 History cholecalciferol (vitamin D3) 2,000 unit PO QAM 12/17/18 09/09/19 History [Vitamin D3] insulin glargine [Lantus Solostar 30 unit SUBCUT QDD 12/17/18 09/09/19 History U-100 Insulin] levothyroxine 112 mcg PO QAM 12/17/18 09/09/19 History vitamins A,C,B-tucy-dmwdes 1 cap PO BID 12/17/18 09/09/19 History [PreserVision AREDS] warfarin 5 mg PO HS 12/17/18 09/09/19 History lancets 33 gauge #400 ea 04/03/19 09/09/19 Rx furosemide 20 mg tablet 20 mg PO DAILY #90 tab 05/28/19 09/09/19 Rx metoprolol tartrate 25 mg tablet 25 mg PO BID #30 tab 06/19/19 09/09/19 Rx acetaminophen 325 mg tablet 650 mg PO Q4H PRN tab 07/31/19 09/09/19 History blood sugar diagnostic #10 ea 07/31/19 09/09/19 History insulin lispro 100) 100 unit/mL 10 units SUBCUT DAILY #7 ml 07/31/19 09/09/19 History subcutaneous pen gabapentin 100 mg capsule 100 mg PO QAM #30 cap 08/22/19 09/09/19 Rx gabapentin 300 mg capsule 300 mg PO HS #30 cap 08/22/19 09/09/19 Rx pen needle, diabetic 32 gauge x #360 ea 08/22/19 09/09/19 Rx 5/32" meclizine 12.5 mg tablet 12.5 mg PO TID PRN #30 tab 09/09/19 09/09/19 Rx ciprofloxacin HCl 250 mg tablet 250 mg PO BID #10 tab 09/11/19 Rx Allergies Allergy/AdvReac Type Severity Reaction Status Date / Time No Known Allergies Allergy Unverified 09/09/19 10:26 Past Med/Surg History Medical History Arthritis (Chronic) Basosquamous carcinoma of skin Closed fracture of shaft of humerus (Resolved 04/09/11) Pericardial effusion (Resolved) Surgical History S/P dilation and curettage Family History (Updated 09/16/19 @ 20:53 by Naheed Rangel DO) Mother Diabetes Hypertension Macular degeneration Hypothyroidism Social History (Updated 09/16/19 @ 20:53 by Naheed Rangel DO) Preferred Language: Chinese Communication Ability: Effective Visual Impairment: No Limitations Hearing Ability: Normal Personal Banking Advisor Required: No Beliefs That Will Affect Care: Presybeterian Presybeterian Beliefs: Roam presybeterian marital status: Current Living Situation: Spouse Current Living Situation Comment: split level home current occupational status: retired Feels Safe at Home: Yes Smoking Status: Never smoker Second Hand Exposure: No ; Hx Alcohol Use: No Hx Substance Use: No Childhood Exposure to Second-Hand Smoke: No Seatbelt Use: always Review of Systems See HPI for pertinent positives & negatives. and A total of 10 systems reviewed and were otherwise negative Physical Exam Vital Signs Vital Signs - 24 hr 09/16/19 16:14 09/16/19 18:20 09/16/19 18:23 Temperature 36.7 C Temperature Source Oral Pulse Rate 85 65 Pulse Rate [Apical] 100 H Pulse Rate from SpO2 Sensor 65 Pulse Rhythm [Apical] Regular Respiratory Rate 20 18 20 Respiratory Effort / Characteristics Non-Labored Spontaneous Non-Labored Spontaneous Respiratory Depth Normal Normal Blood Pressure 128/94 248/70 H Blood Pressure [Left Arm] 240/70 H Blood Pressure Mean 105 157 Blood Pressure Mean [Left Arm] 126 Blood Pressure Position Sitting Pulse Oximetry 97 100 96 Oxygen Delivery Method Room Air Room Air Sepsis Recent Fever Within 48 Hours No Sepsis Action Taken by Nursing No Action Required 09/16/19 18:26 09/16/19 18:27 09/16/19 18:30 Temperature Temperature Source Pulse Rate 64 65 67 Pulse Rate [Apical] Pulse Rate from SpO2 Sensor 64 65 68 Pulse Rhythm [Apical] Respiratory Rate 18 21 18 Respiratory Effort / Characteristics Respiratory Depth Blood Pressure 208/91 H Blood Pressure [Left Arm] Blood Pressure Mean 156 Blood Pressure Mean [Left Arm] Blood Pressure Position Pulse Oximetry 99 97 Oxygen Delivery Method Sepsis Recent Fever Within 48 Hours Sepsis Action Taken by Nursing 09/16/19 18:31 09/16/19 19:00 09/16/19 19:01 Temperature Temperature Source Pulse Rate 65 81 73 Pulse Rate [Apical] Pulse Rate from SpO2 Sensor 65 81 74 Pulse Rhythm [Apical] Respiratory Rate 16 22 22 Respiratory Effort / Characteristics Respiratory Depth Blood Pressure 238/102 H 235/108 H Blood Pressure [Left Arm] Blood Pressure Mean 141 129 Blood Pressure Mean [Left Arm] Blood Pressure Position Pulse Oximetry 98 96 96 Oxygen Delivery Method Sepsis Recent Fever Within 48 Hours Sepsis Action Taken by Nursing 09/16/19 19:30 09/16/19 20:01 Temperature Temperature Source Pulse Rate 69 68 Pulse Rate [Apical] Pulse Rate from SpO2 Sensor 68 72 Pulse Rhythm [Apical] Respiratory Rate 18 23 Respiratory Effort / Characteristics Respiratory Depth Blood Pressure 222/98 H 241/81 H Blood Pressure [Left Arm] Blood Pressure Mean 142 161 Blood Pressure Mean [Left Arm] Blood Pressure Position Pulse Oximetry 96 97 Oxygen Delivery Method Sepsis Recent Fever Within 48 Hours Sepsis Action Taken by Nursing GENERAL: walks with cane, sitting up in chair, speaking in full sentences, no acute distress EYE EXAM: normal conjunctiva OROPHARYNX: no exudate, no erythema, lips, buccal mucosa, and tongue normal and mucous membranes are moist NECK: supple, no nuchal rigidity, no adenopathy, non-tender LUNGS: Clear to auscultation. Normal chest wall mechanics HEART: no murmurs, S1 normal and S2 normal ABDOMEN: abdomen soft, non-tender, normo-active bowel sounds, no masses, no rebound or guarding. BACK: Back is symmetrical on inspection and there is no deformity, no midline tenderness, no CVA tenderness. SKIN: no rashes and no bruising UPPER EXTREMITIES: upper extremities are grossly normal. LOWER EXTREMITIES: Pitting edema bilaterally. NEURO EXAM: Normal sensorium, cranial nerves II-XII grossly intact, normal speech, no gross weakness of arms, no gross weakness of legs. Course Course ED COURSE: Vital signs were reviewed and showed hypertension. The patients medical record was reviewed The above diagnostic studies were performed and reviewed. ED treatments and interventions as stated above. 1715: The patient was evaluated in room D01B. A complete history and physical examination was performed. 1834: Upon reevaluation, the patient is resting.I discussed my findings with the patient and she understands and agrees with the treatment plan. Based on the patients age, coexisting illnesses, exam and lab findings the decision to treat as an inpatient was made. The patient remained stable while under my care. The patient will be evaluated for further management under the care of Dr. Naheed Rangel, [facility] Hospitalist. Administered Medications Acetaminophen (Tylenol) 650 mg PO Q4H PRN PRN Reason: Pain or Fever Stop: 10/16/19 21:30 Last Admin: 09/16/19 21:57 Dose: 650 mg Documented by: [id number] Miscellaneous (Carbohydrates For Hypoglycemia) 15 - 30 gm PO UD PRN PRN Reason: Hypoglycemia Protocol Stop: 10/16/19 21:30 Last Admin: 09/16/19 21:30 Dose: 15 gm Documented by: [id number] Discontinued Medications Acetaminophen (Tylenol) Confirm Administered Dose 650 mg .ROUTE .STK-MED ONE Stop: 09/16/19 21:57 Last Admin: 09/16/19 22:03 Dose: Not Given Documented by: [id number] Sodium Chloride (Nss) 500 mls @ 999 mls/hr IV .Q31M ONE Stop: 09/16/19 17:52 Last Infusion: 09/16/19 19:36 Dose: 0 mls/hr Documented by: [id number] Admin: 09/16/19 19:06 Dose: 999 mls/hr Documented by: [id number] Metoprolol Tartrate (Lopressor) Confirm Administered Dose 5 mg IV .[employer]-MED ONE Stop: 09/16/19 21:50 Last Admin: 09/16/19 21:51 Dose: 5 mg Documented by: [id number] Impression & Plan ROSA (acute kidney injury), Weakness, Anticoagulated on Coumadin, Anemia Discharge Plan Visit Data *Final* Discharge Date/Time: 09/16/19 20:56 Chief Complaint: Illness Stated Complaint: PAIN - REFERRED BY DR MORFIN ED Provider: Gino Babcock Discharge Problem: ROSA (acute kidney injury), Weakness, Anticoagulated on Coumadin, Anemia Patient Disposition: Admitted As Inpatient Discharge Instructions Interventions: ED Discharge Assessment Last Done: 09/16/19 20:56 Medical Decision Making Differential Diagnosis Differential diagnosis includes but is not limited to etiologies such as metabolic, infection, hypo/hyperglycemia, electrolyte abnormalities, cardiac sources, intracerebral event, toxicologic, neurologic, as well as others were entertained. Medical Records Attestation: I reviewed the patient's medical records. Home Medications Current Medication List: was personally reviewed by me Laboratory Data Attestation: I reviewed the patient's lab results. Result diagrams: 09/16/19 16:33 09/16/19 16:33 Lab Results 09/16/19 09/16/19 09/16/19 Range/Units 16:33 16:33 16:33 WBC 6.58 (4.8-10.8) K/uL RBC 3.33 L (4.2-5.4) M/uL Hgb 10.4 L (12.0-16.0) g/dL Hct 31.0 L (37-47) % MCV 93.1 (80-100) fL MCH 31.2 (25-34) pg MCHC 33.5 (32-36) g/dL RDW Std Deviation 50.2 H (36.4-46.3) fL RDW Coeff of Jon 14.7 H (11.5-14.5) % Plt Count 225 (130-400) K/uL MPV 10.4 (7.4-10.4) fL Immature Gran % (Auto) 0.3 % Neut % (Auto) 52.0 % Lymph % (Auto) 30.1 % [place] % (Auto) 11.1 % Eos % (Auto) 5.9 % Baso % (Auto) 0.6 % Immature Gran # (Auto) 0.02 (0.00-0.02) K/uL Neut # (Auto) 3.42 (1.4-6.5) K/uL Lymph # (Auto) 1.98 (1.2-3.4) K/uL [place] # (Auto) 0.73 H (0.11-0.59) K/uL Eos # (Auto) 0.39 (0-0.5) K/uL Baso # (Auto) 0.04 (0-0.2) K/uL PT (9.0-12.0) Seconds INR (0.9-1.1) Sodium 144 (136-145) mmol/L Potassium 3.9 (3.5-5.1) mmol/L Chloride 113 H (98-107) mmol/L Carbon Dioxide 21 (21-32) mmol/L Anion Gap 10.0 (3-11) BUN 59 H (7-18) mg/dl Creatinine 4.14 H (0.6-1.2) mg/dl Est Cr Clr Drug Dosing 11.3 ml/min Est GFR ( Amer) 10.5 Est GFR (Non-Af Amer) 9.0 BUN/Creatinine Ratio 14.2 (10-20) Glucose 104 H (70-99) mg/dl Calcium 9.1 (8.5-10.1) mg/dl Iron (35-150) mcg/dl TIBC (250-450) mcg/dl Total Bilirubin 0.7 (0.2-1) mg/dl AST 21 (15-37) U/L ALT 24 (12-78) U/L Alkaline Phosphatase 111 (45-117) U/L Total Protein 7.4 (6.4-8.2) gm/dl Albumin 3.3 L (3.4-5.0) gm/dl Globulin 4.1 H (2.5-4.0) gm/dl Albumin/Globulin Ratio 0.8 L (0.9-2) Lipase 288 Cancelled (73-393) U/L Urine Color Urine Appearance (Clear) Urine pH (4.5-7.5) Ur Specific [place] (1.000-1.030) Urine Protein (Negative) Urine Glucose (UA) (Negative) Urine Ketones (Negative) Urine Blood (Negative) Urine Nitrite (Negative) Urine Bilirubin (Negative) Urine Urobilinogen (Negative) Ur Leukocyte Esterase (Negative) Urine RBC (0-4) /hpf Urine WBC (0-5) /hpf Ur Epithelial Cells (0-5) /lpf Urine Bacteria (Negative) 09/16/19 09/16/19 09/16/19 Range/Units 16:33 16:33 18:20 WBC (4.8-10.8) K/uL RBC (4.2-5.4) M/uL Hgb (12.0-16.0) g/dL Hct (37-47) % MCV (80-100) fL MCH (25-34) pg MCHC (32-36) g/dL RDW Std Deviation (36.4-46.3) fL RDW Coeff of Jon (11.5-14.5) % Plt Count (130-400) K/uL MPV (7.4-10.4) fL Immature Gran % (Auto) % Neut % (Auto) % Lymph % (Auto) % [place] % (Auto) % Eos % (Auto) % Baso % (Auto) % Immature Gran # (Auto) (0.00-0.02) K/uL Neut # (Auto) (1.4-6.5) K/uL Lymph # (Auto) (1.2-3.4) K/uL [place] # (Auto) (0.11-0.59) K/uL Eos # (Auto) (0-0.5) K/uL Baso # (Auto) (0-0.2) K/uL PT 25.9 H (9.0-12.0) Seconds INR 2.7 H (0.9-1.1) Sodium (136-145) mmol/L Potassium (3.5-5.1) mmol/L Chloride (98-107) mmol/L Carbon Dioxide (21-32) mmol/L Anion Gap (3-11) BUN (7-18) mg/dl Creatinine (0.6-1.2) mg/dl Est Cr Clr Drug Dosing ml/min Est GFR ( Amer) Est GFR (Non-Af Amer) BUN/Creatinine Ratio (10-20) Glucose (70-99) mg/dl Calcium (8.5-10.1) mg/dl Iron 81 (35-150) mcg/dl TIBC 270 (250-450) mcg/dl Total Bilirubin (0.2-1) mg/dl AST (15-37) U/L ALT (12-78) U/L Alkaline Phosphatase (45-117) U/L Total Protein (6.4-8.2) gm/dl Albumin (3.4-5.0) gm/dl Globulin (2.5-4.0) gm/dl Albumin/Globulin Ratio (0.9-2) Lipase (73-393) U/L Urine Color Yellow Urine Appearance Clear (Clear) Urine pH 5.0 (4.5-7.5) Ur Specific [place] 1.020 (1.000-1.030) Urine Protein 2+ H (Negative) Urine Glucose (UA) Negative (Negative) Urine Ketones Negative (Negative) Urine Blood 3+ H (Negative) Urine Nitrite Negative (Negative) Urine Bilirubin Negative (Negative) Urine Urobilinogen Negative (Negative) Ur Leukocyte Esterase Trace H (Negative) Urine RBC >30 H (0-4) /hpf Urine WBC 5-10 H (0-5) /hpf Ur Epithelial Cells 10-20 H (0-5) /lpf Urine Bacteria 1+ H (Negative) Imaging Data Radiologist's Impression: Radiology results as stated below per my review and the radiologist's interpretation: XR chest 1V portable CLINICAL HISTORY: 89 years-old Female presenting with weak. TECHNIQUE: Portable upright AP view of the chest was obtained. COMPARISON: 12/17/2018. FINDINGS: Atherosclerosis of the aortic arch. Cardiac silhouette enlarged. Tortuosity of the descending thoracic aorta. Perihilar opacity on the right. The left retrocardiac region is not as well evaluated due to the presence of cardiomegaly and prominent pericardial fat pad as on prior exam. No large effusion or pneumot horax. Osseous structures normal. A hiatal hernia may be present. IMPRESSION: 1. Right basilar opacity suspected. This could represent pneumonia. Asymmetric edema is considered less likely. PA and lateral views could be considered for confirmation. 2. Cardiomegaly. Electronically signed by: Adiel Pulido M.D. 09/16/2019 6:22 PM Blood Pressure Blood Pressure Findings: Elevated blood pressure Blood Pressure Disposition: Referred to patients primary care provider MDM Narrative Patient is an 9-year-old female who presents the ER referred in by PCP for weakness. Patient had blood work done as an outpatient and shows no significant leukocytosis but a mild anemia 10.4. INR was therapeutic at 2.7. BMP with a creatinine of 4.14 up off of a baseline of 1.9. LFTs were unremarkable. UA was contaminated with multiple epithelial cells. Chest x-ray with a questionable right lower lobe infiltrate. Patient has no pneumonia symptoms. Patient was updated bedside given small dose of IV fluids. She was admitted to the hospital for further work-up of her ROSA. was updated at bedside as well. Discharge Problem: Anemia Qualifiers: Anemia type: unspecified type Qualified Code(s): D64.9 - Anemia, unspecified The scribe's documentation has been prepared under my direction and personally reviewed by me in its entirety. I confirm that the note above accurately reflects all work, treatment, procedures, and medical decision making performed by me.
[2019-09-16 22:41] LABS: Lyme Ab IgG w/WB Rflx Negative (Negative); Lyme Ab IgM w/WB Rflx Negative (Negative)
[2019-09-16] MEDS: cefTRIAXone SODIUM 2,000 MG in DEXTROSE 5% 50 ML IV SCH (22:42)
[2019-09-16] MEDS: INSULIN ASPART 100 UNITS/ML 3 ML PEN SC SCH (23:06)
[2019-09-16] MEDS: METOPROLOL TARTRATE 25 MG TAB PO SCH (23:23)
[2019-09-16] MEDS: WARFARIN SOD 5 MG TAB PO SCH (23:24)
[2019-09-17] MEDS ORDERED: HydrALAZINE HCL 20 MG/ML VIAL IV STA (01:17)
[2019-09-17] MEDS ORDERED: MoRPHine SULFATE 2 MG/ML CARP IV STA (01:17)
[2019-09-17] MEDS ORDERED: HydrALAZINE HCL 20 MG/ML VIAL ONE (01:22)
[2019-09-17] MEDS: LEVOTHYROXINE SODIUM 112 MCG TABLET PO SCH (05:46)
[2019-09-17 06:00] LABS: Basophils # (auto) 0.04 K/uL (0-0.2); Basophils % (auto) 0.6 %; Eosinophils # (auto) 0.27 K/uL (0-0.5); Hematocrit (blood only) 26.6 % (37-47); Immature Granulocytes # (auto) 0.01 K/uL (0.00-0.02); Immature Granulocytes % (auto) 0.1 %; Lymphocytes % (auto) 30.8 %; Mean Corpuscular Hemoglobin 31.3 pg (25-34); Mean Corpuscular Hgb Conc 33.8 g/dL (32-36); Mean Corpuscular Volume 92.4 fL (80-100); Mean Platelet Volume 9.7 fL (7.4-10.4); Monocytes # (auto) 0.88 K/uL (0.11-0.59); Monocytes % (auto) 12.9 %; Neutrophils # (auto) 3.51 K/uL (1.4-6.5); Neutrophils % (auto) 51.6 %; Platelet Count 189 K/uL (130-400); RDW Coefficient of Variation 14.4 % (11.5-14.5); RDW Standard Deviation 49.2 fL (36.4-46.3); Red Blood Count 2.88 M/uL (4.2-5.4); White Blood Count 6.81 K/uL (4.8-10.8)
[2019-09-17 06:27] LABS: BUN Creatinine Ratio 14.2 (10-20); Calcium 8.4 mg/dl (8.5-10.1); Creatinine Clr Calc Pharmacy 11.2 ml/min; Est GFR (African American) 10.2; Est GFR (Non-African American) 8.8; Potassium 4.3 mmol/L (3.5-5.1)
[2019-09-17 06:30] LABS: Ferritin 163.1 ng/ml (8-388)
[2019-09-17] MEDS: ACETAMINOPHEN 325 MG TAB PO PRN ×4 (07:34→21:58)
[2019-09-17] MEDS: GABAPENTIN 100 MG CAP PO SCH (07:50)
[2019-09-17] MEDS: METOPROLOL TARTRATE 25 MG TAB PO SCH ×2 (08:12→20:05)
[2019-09-17] MEDS: INSULIN ASPART 100 UNITS/ML 3 ML PEN SC SCH ×4 (08:27→21:46)
[2019-09-17] MEDS ORDERED: PNEUMOCOCCAL ADMINISTRATION CHARGE ONE (09:00)
[2019-09-17] MEDS ORDERED: PNEUMOCOCCAL POLYSACCHARIDES 25 MCG/0.5 ML VIAL/SYR IM ONE (09:00)
[2019-09-17] MEDS ORDERED: INSULIN LISPRO 10 UNIT SQ SCH (09:00)
[2019-09-17] MEDS ORDERED: FUROSEMIDE 20 MG TAB PO SCH (09:00)
[2019-09-17] MEDS: SODIUM CHLORIDE 0.45 % 1,000 ML IV SCH ×2 (09:40→21:59)
[2019-09-17] MEDS ORDERED: AZITHROMYCIN 250 MG TAB PO ONE (11:00)
--- NOTE | 2019-09-17 11:02 | Nephrology Consultation ---
Date of Consultation September 17, 2019 Assessment & Plan (1) ROSA (acute kidney injury): -- Patient appears clinically volume contracted. Agree w/ gentle hydration -- Will order FeNa and Renal US -- Urine microscopy concerning for ongoing infection. 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 Baseline Cr 1.7 (3) Pulmonary infiltrate: -- On empiric Ceftriaxone therapy (4) Diabetes mellitus with diabetic neuropathy: (5) AF (paroxysmal atrial fibrillation): (6) Hypothyroidism: History of Present Illness Reason for Consultation: ROSA/CKD Attending Physician: Kelly Whittington MD History of Present Illness Mrs. Pearce is an 89 year old white female who is seen at the request of Dr. Whittington for evaluation of ROSA/CKD. Medical records in the EMR were reviewed today and are summarized as follows: Mrs. Pearce has stage III CKD w/ baseline Cr 1.7. Her renal impairment is due to diabetic nephropathy and hypertensive nephrosclerosis. Her kidney function had been stable as an outpatient and she reduced her Nephrology evaluation to annual visits (every September). Over the last several weeks Mrs. Pearce states that she was fatigued and suffering from R hip discomfort. She recently tested positive for UTI and was treated w/ Cipro. Mrs. Pearce later notes that she developed diarrhea. Laboratory studies drawn by PCP revealed that Cr had risen to 4.2. Results were called to my office and admission was advised for further evaluation. Mrs. Pearce currently denies fever, angina, dyspnea or abdominal pain. She does c/o ongoing diarrhea and R hip discomfort. She denies the use of NSAIDS but has been taking Acetaminophen for management of her hip discomfort. PMH: AODM, hypothyroidism, iron deficiency anemia, depression, atrial fibrillation managed with diltiazem and warfarin therapy, s/p cholecystectomy 03/13 Allergies Allergy/AdvReac Type Severity Reaction Status Date / Time No Known Allergies Allergy Unverified 09/09/19 10:26 Home Medications Home Medications Medication Instructions Recorded Confirmed Type atorvastatin 10 mg PO HS 12/17/18 09/17/19 History cholecalciferol (vitamin D3) 2,000 unit PO QAM 12/17/18 09/17/19 History [Vitamin D3] insulin glargine [Lantus Solostar 30 unit SUBCUT QDD 12/17/18 09/17/19 History U-100 Insulin] levothyroxine 112 mcg PO QAM 12/17/18 09/17/19 History vitamins A,C,Y-olgi-xborre 1 cap PO BID 12/17/18 09/17/19 History [PreserVision AREDS] warfarin 5 mg PO HS 12/17/18 09/17/19 History lancets 33 gauge #400 ea 04/03/19 09/09/19 Rx furosemide 20 mg tablet 20 mg PO DAILY #90 tab 05/28/19 09/17/19 Rx metoprolol tartrate 25 mg tablet 25 mg PO BID #30 tab 06/19/19 09/17/19 Rx acetaminophen 325 mg tablet 650 mg PO Q4H PRN tab 07/31/19 09/17/19 History blood sugar diagnostic #10 ea 07/31/19 09/09/19 History insulin lispro 100) 100 unit/mL 20 units SUBCUT DAILY #7 ml 07/31/19 09/17/19 History subcutaneous pen gabapentin 100 mg capsule 100 mg PO QAM #30 cap 08/22/19 09/17/19 Rx gabapentin 300 mg capsule 300 mg PO HS #30 cap 08/22/19 09/17/19 Rx pen needle, diabetic 32 gauge x #360 ea 08/22/19 09/09/19 Rx 5/32" meclizine 12.5 mg tablet 12.5 mg PO TID PRN #30 tab 09/09/19 09/17/19 Rx ciprofloxacin HCl 250 mg tablet 250 mg PO BID #10 tab 09/11/19 Rx Patient History Medical History Arthritis (Chronic) Basosquamous carcinoma of skin Closed fracture of shaft of humerus (Resolved 04/09/11) Pericardial effusion (Resolved) Surgical History S/P dilation and curettage Family History (Updated 09/16/19 @ 20:53 by Naheed Rangel DO) Mother Diabetes Hypertension Macular degeneration Hypothyroidism Social History (Updated 09/16/19 @ 20:53 by Naheed Rangel DO) Preferred Language: Malagasy Communication Ability: Effective Visual Impairment: No Limitations Hearing Ability: Normal Transmission Assembler Required: No Beliefs That Will Affect Care: Rastafarian Rastafarian Beliefs: Roam jewish marital status: Current Living Situation: Spouse Current Living Situation Comment: split level home current occupational status: retired Feels Safe at Home: Yes Smoking Status: Never smoker Second Hand Exposure: No ; Hx Alcohol Use: No Hx Substance Use: No Childhood Exposure to Second-Hand Smoke: No Seatbelt Use: always Review of Systems Constitutional: + weakness; no fever and no chills Eyes: no worsening vision and no problem reported Ear, Nose, Mouth, Throat: no problem reported Respiratory: no cough and no dyspnea Cardiovascular: + edema (trace LE swelling); no chest pain and no palpitations Gastrointestinal: + diarrhea/loose stools; no abdominal pain, no nausea and no vomiting Genitourinary: no dysuria and no hematuria Musculoskeletal: no back pain Integumentary: no rash Neurologic: no falls, no dizziness and no confusion Physical Exam Constitutional: + overweight; not in distress Eyes: PERRL, conjunctivae normal, anicteric sclerae ENMT: external ear and nose normal, oropharynx normal Neck: trachea midline, no thyromegaly Respiratory: normal respiratory effort, lungs clear to auscultation Cardiovascular: Rate/Rhythm: + irregularly irregular Heart Sounds: no murmur Extremities: + edema (trace LE edema) Gastrointestinal (Abdomen): normal bowel sounds, soft, nontender, no hepatosplenomegaly Musculoskeletal: Extremities: no cyanosis Skin: no rashes, warm and dry Neurologic: awake; not confused Results & Data Vital Signs (Past 12 Hours) Vital Signs Temp Pulse Pulse Pulse Resp BP Pulse Ox 09/17/19 07:24 37.1 C 58 L 20 176/71 H 93 09/17/19 07:18 57 L 09/17/19 04:58 36.9 C 57 L 18 168/64 H 91 09/17/19 02:24 67 09/17/19 02:13 60 168/78 H 09/17/19 01:01 64 223/86 H 09/16/19 23:00 36.8 C 64 19 198/74 H 94 Laboratory Results Laboratory Results - last 24 hr 09/16/19 09/16/19 09/16/19 16:33 16:33 16:33 WBC 6.58 RBC 3.33 L Hgb 10.4 L Hct 31.0 L MCV 93.1 MCH 31.2 MCHC 33.5 RDW Std Deviation 50.2 H RDW Coeff of Jon 14.7 H Plt Count 225 MPV 10.4 Immature Gran % (Auto) 0.3 Neut % (Auto) 52.0 Lymph % (Auto) 30.1 [place] % (Auto) 11.1 Eos % (Auto) 5.9 Baso % (Auto) 0.6 Immature Gran # (Auto) 0.02 Neut # (Auto) 3.42 Lymph # (Auto) 1.98 [place] # (Auto) 0.73 H Eos # (Auto) 0.39 Baso # (Auto) 0.04 PT INR Sodium 144 Potassium 3.9 Chloride 113 H Carbon Dioxide 21 Anion Gap 10.0 BUN 59 H Creatinine 4.14 H Est Cr Clr Drug Dosing 11.3 Est GFR ( Amer) 10.5 Est GFR (Non-Af Amer) 9.0 BUN/Creatinine Ratio 14.2 Glucose 104 H POC Glucose Calcium 9.1 Iron TIBC Transferrin Ferritin Total Bilirubin 0.7 AST 21 ALT 24 Alkaline Phosphatase 111 Total Protein 7.4 Albumin 3.3 L Globulin 4.1 H Albumin/Globulin Ratio 0.8 L Lipase 288 Cancelled Urine Color Urine Appearance Urine pH Ur Specific [place] Urine Protein Urine Glucose (UA) Urine Ketones Urine Blood Urine Nitrite Urine Bilirubin Urine Urobilinogen Ur Leukocyte Esterase Urine RBC Urine WBC Ur Epithelial Cells Urine Bacteria Lyme Disease IgG Ab Lyme Disease IgM Ab 09/16/19 09/16/19 09/16/19 16:33 16:33 16:33 WBC RBC Hgb Hct MCV MCH MCHC RDW Std Deviation RDW Coeff of Jon Plt Count MPV Immature Gran % (Auto) Neut % (Auto) Lymph % (Auto) [place] % (Auto) Eos % (Auto) Baso % (Auto) Immature Gran # (Auto) Neut # (Auto) Lymph # (Auto) [place] # (Auto) Eos # (Auto) Baso # (Auto) PT 25.9 H INR 2.7 H Sodium Potassium Chloride Carbon Dioxide Anion Gap BUN Creatinine Est Cr Clr Drug Dosing Est GFR ( Amer) Est GFR (Non-Af Amer) BUN/Creatinine Ratio Glucose POC Glucose Calcium Iron 81 TIBC 270 Transferrin Ferritin Total Bilirubin AST ALT Alkaline Phosphatase Total Protein Albumin Globulin Albumin/Globulin Ratio Lipase Urine Color Urine Appearance Urine pH Ur Specific [place] Urine Protein Urine Glucose (UA) Urine Ketones Urine Blood Urine Nitrite Urine Bilirubin Urine Urobilinogen Ur Leukocyte Esterase Urine RBC Urine WBC Ur Epithelial Cells Urine Bacteria Lyme Disease IgG Ab Negative Lyme Disease IgM Ab Negative 09/16/19 09/16/19 09/16/19 18:20 21:29 21:46 WBC RBC Hgb Hct MCV MCH MCHC RDW Std Deviation RDW Coeff of Jon Plt Count MPV Immature Gran % (Auto) Neut % (Auto) Lymph % (Auto) [place] % (Auto) Eos % (Auto) Baso % (Auto) Immature Gran # (Auto) Neut # (Auto) Lymph # (Auto) [place] # (Auto) Eos # (Auto) Baso # (Auto) PT INR Sodium Potassium Chloride Carbon Dioxide Anion Gap BUN Creatinine Est Cr Clr Drug Dosing Est GFR ( Amer) Est GFR (Non-Af Amer) BUN/Creatinine Ratio Glucose POC Glucose 67 L* 75 Calcium Iron TIBC Transferrin Ferritin Total Bilirubin AST ALT Alkaline Phosphatase Total Protein Albumin Globulin Albumin/Globulin Ratio Lipase Urine Color Yellow Urine Appearance Clear Urine pH 5.0 Ur Specific [place] 1.020 Urine Protein 2+ H Urine Glucose (UA) Negative Urine Ketones Negative Urine Blood 3+ H Urine Nitrite Negative Urine Bilirubin Negative Urine Urobilinogen Negative Ur Leukocyte Esterase Trace H Urine RBC >30 H Urine WBC 5-10 H Ur Epithelial Cells 10-20 H Urine Bacteria 1+ H Lyme Disease IgG Ab Lyme Disease IgM Ab 09/17/19 09/17/19 09/17/19 00:20 05:43 05:43 WBC 6.81 RBC 2.88 L Hgb 9.0 L Hct 26.6 L MCV 92.4 MCH 31.3 MCHC 33.8 RDW Std Deviation 49.2 H RDW Coeff of Jon 14.4 Plt Count 189 MPV 9.7 Immature Gran % (Auto) 0.1 Neut % (Auto) 51.6 Lymph % (Auto) 30.8 [place] % (Auto) 12.9 Eos % (Auto) 4.0 Baso % (Auto) 0.6 Immature Gran # (Auto) 0.01 Neut # (Auto) 3.51 Lymph # (Auto) 2.10 [place] # (Auto) 0.88 H Eos # (Auto) 0.27 Baso # (Auto) 0.04 PT INR Sodium 147 H Potassium 4.3 Chloride 118 H Carbon Dioxide 22 Anion Gap 7.0 BUN 60 H Creatinine 4.23 H Est Cr Clr Drug Dosing 11.2 Est GFR ( Amer) 10.2 Est GFR (Non-Af Amer) 8.8 BUN/Creatinine Ratio 14.2 Glucose 77 POC Glucose 151 H Calcium 8.4 L Iron 62 TIBC Transferrin 174 L Ferritin 163.1 Total Bilirubin AST ALT Alkaline Phosphatase Total Protein Albumin Globulin Albumin/Globulin Ratio Lipase Urine Color Urine Appearance Urine pH Ur Specific [place] Urine Protein Urine Glucose (UA) Urine Ketones Urine Blood Urine Nitrite Urine Bilirubin Urine Urobilinogen Ur Leukocyte Esterase Urine RBC Urine WBC Ur Epithelial Cells Urine Bacteria Lyme Disease IgG Ab Lyme Disease IgM Ab 09/17/19 07:33 WBC RBC Hgb Hct MCV MCH MCHC RDW Std Deviation RDW Coeff of Jon Plt Count MPV Immature Gran % (Auto) Neut % (Auto) Lymph % (Auto) [place] % (Auto) Eos % (Auto) Baso % (Auto) Immature Gran # (Auto) Neut # (Auto) Lymph # (Auto) [place] # (Auto) Eos # (Auto) Baso # (Auto) PT INR Sodium Potassium Chloride Carbon Dioxide Anion Gap BUN Creatinine Est Cr Clr Drug Dosing Est GFR ( Amer) Est GFR (Non-Af Amer) BUN/Creatinine Ratio Glucose POC Glucose 84 Calcium Iron TIBC Transferrin Ferritin Total Bilirubin AST ALT Alkaline Phosphatase Total Protein Albumin Globulin Albumin/Globulin Ratio Lipase Urine Color Urine Appearance Urine pH Ur Specific [place] Urine Protein Urine Glucose (UA) Urine Ketones Urine Blood Urine Nitrite Urine Bilirubin Urine Urobilinogen Ur Leukocyte Esterase Urine RBC Urine WBC Ur Epithelial Cells Urine Bacteria Lyme Disease IgG Ab Lyme Disease IgM Ab Diagnostic Findings 09/16 CXR - possible RLL infiltrate 09/16 urine culture - pending PG Care Time/CCT Total # of Minutes Spent Total Time Spent with Patient: Total time spent is greater than 50% in coordination of care (as documented) at patient's floor/unit and/or counseling patient:
--- NOTE | 2019-09-17 12:09 | Ultrasound Report ---
US renal/blad retro comp HISTORY: 89 years-old Female ROSA/CKD acute on chronic kidney disease COMPARISON: CT abdomen pelvis 12/17/2018 TECHNIQUE: Multiple real-time sonographic images of the kidneys and urinary bladder were obtained ass essing grayscale appearance and color flow FINDINGS: Right kidney measures 10.8 cm in length and demonstrates no renal calculi, hydronephrosis or suspicio us mass lesion. Mild cortical thinning throughout the right kidney. Left kidney measures 9.0 cm in length and also demonstrates mild diffuse cortical thinning without re nal calculi, hydronephrosis or suspicious mass lesion. Partial distention of the bladder with mild wall thickening. Ureteral jets are noted bilaterally. IMPRESSION: 1. Mild bilateral renal cortical thinning without renal calculi or hydronephrosis. 2. Partial distention of the urinary bladder. The above report was generated using voice recognition software. It may contain grammatical, syntax o r spelling errors. Electronically signed by: Jonathan Crar M.D. 09/17/2019 12:08 PM
[2019-09-17] MEDS ORDERED: INSULIN GLARGINE SOLOSTAR 100 UNITS/ML 3 ML PEN SQ SCH (16:30)
[2019-09-17] MEDS: WARFARIN SOD 5 MG TAB PO SCH (16:50)
[2019-09-17] MEDS: AMLODIPINE BESYLATE 5 MG TAB PO SCH (20:04)
[2019-09-17] MEDS: GABAPENTIN 300 MG CAP PO SCH (20:05)
[2019-09-17] MEDS: cefTRIAXone SODIUM 2,000 MG in DEXTROSE 5% 50 ML IV SCH (22:04)
[2019-09-17 22:29] LABS: Appearance Urine Clear (Clear); Bacteria Urine Automated Negative (Negative); Bilirubin Urine Negative (Negative); Blood Urine 3+ (Negative); Cast Urine Automated 0 /lpf (0-5); Color Urine Yellow; Glucose Urine UA Negative (Negative); Ketones Urine Negative (Negative); Leukocyte Esterase Urine Negative (Negative); Nitrite Urine Negative (Negative); Protein Urine 2+ (Negative); RBC Urine Automated >30 /hpf (0-4); Specific Gravity Urine 1.014 (1.000-1.030); Urobilinogen Urine Negative (Negative)
[2019-09-17 22:48] LABS: Creatinine Urine Random 33.4 mg/dl
--- NOTE | 2019-09-17 23:36 | Hospitalist Progress Note ---
Date of Service September 17, 2019 Assessment & Plan (1) Weakness: Likely secondary to worsening renal failure and PNA See below for plans PT/OT evals Improved (2) ROSA (acute kidney injury): Baseline CKD III with cr 1.5 Elevated to 4.1 on admission, unclear how long ago this happened as most recent labs prior to this were from 11/2018, but has been feeling unwell for 2 months Non-oliguric Renal US without obstruction Appreciate Neprho consultation -Change IVFs to 1/2 NS at 80 mLs/hr given hypernatremia -STOP lasix (3) Abnormal finding on urinalysis: UA abnormal as outpt and was started on cipro just prior to admission UA noted for + leuk est, neg nitrites now after taking 1 dose CIpro Change to rocephin given CXR finding and treatment for PNA Cx pending (4) Gout: With right hip pain now resolved, not likely from gout Doppler RLE neg for DVT (5) Diabetes mellitus with diabetic neuropathy: With lower glucose here SSI and Lantus from home ordered-lower doses as needed A1c 9.0 on 09/09, will not recheck (6) Hypertension: With significantly elevated BPS here continue home metoprolol-can't go up on dose due to lower HR -add amlodipine 5mg daily -IV hydralazine prn (7) Anemia: Baseline 13.1, now dropped from 10.4 on admission to 9.0, may be somewhat hemodilutional No obvious bleeding Iron panel consistent with chronic disease -follow CBC (8) AF (paroxysmal atrial fibrillation): Rate controlled INR 2.7 on day of admission -continue Coumadin 5mg HS -follow INR in AM -continue metoprolol (9) Hyperlipidemia: Ok to restart statin (10) Hypothyroidism: continue home med TSH WNL on 09/09, will not recheck (11) Pneumonia: CXR with Right sided infiltrate, no cough, no fevers but always has chills, no leukocytosis -treat with Rocephin and azithro (12) DVT prophylaxis: Coumadin Dispo-remain hospitalized for renal failure Subjective Pt reports feeling better. Is more energetic. Is making urine, Denies chest pain, SOB. Denies cough , denies fevers/chills Tele with SB 50s-60s Discussed case with Nephrology Review of Systems Review of Systems: All systems reviewed & are unremarkable except as noted in HPI & below Physical Exam Constitutional: WD/WN, vitals as above Eyes: + anicteric sclerae ENMT: external ear and nose normal, oropharynx normal Neck: trachea midline, no thyromegaly Respiratory: normal respiratory effort Auscultation: + crackles (right lower lung field); no rhonchi and no wheezes Cardiovascular: Rate/Rhythm: regular rate and regular rhythm Heart Sounds: no murmur Extremities: + edema (2+ pitting edema legs bilat) Gastrointestinal (Abdomen): normal bowel sounds, soft, nontender, no hepatosplenomegaly Musculoskeletal: Extremities: extremities normal to inspection; no cyanosis and no clubbing Skin: no rashes, warm and dry Neurologic: moves all extremities and awake; no focal motor deficits Psychiatric: A+Ox3, euthymic affect Results & Data Vital Signs (Past 12 Hours) Vital Signs Temp Pulse Pulse Resp BP Pulse Ox 09/17/19 22:58 36.8 C 59 L 20 187/72 H 91 09/17/19 22:38 187/69 H 09/17/19 20:00 36.8 C 61 18 202/74 H 95 09/17/19 16:19 64 09/17/19 15:53 36.6 C 65 18 177/77 H 93 09/17/19 14:42 93 PG Care Time/CCT Total # of Minutes Spent Total Time Spent with Patient: Total time spent is greater than 50% in coordination of care (as documented) at patient's floor/unit and/or counseling patient: (1) Anemia Anemia type: unspecified type Qualified Code(s): D64.9 - Anemia, unspecified
[2019-09-18] MEDS: HydrALAZINE HCL 20 MG/ML VIAL IV PRN ×2 (04:41→19:31)
[2019-09-18] MEDS: ACETAMINOPHEN 325 MG TAB PO PRN ×2 (04:45→08:52)
[2019-09-18] MEDS: LEVOTHYROXINE SODIUM 112 MCG TABLET PO SCH (06:05)
[2019-09-18 06:41] LABS: Hemoglobin 9.7 g/dL (12.0-16.0); Mean Corpuscular Hemoglobin 31.1 pg (25-34); Mean Corpuscular Hgb Conc 33.4 g/dL (32-36); Mean Corpuscular Volume 92.9 fL (80-100); Mean Platelet Volume 10.3 fL (7.4-10.4); Platelet Count 200 K/uL (130-400); RDW Coefficient of Variation 14.7 % (11.5-14.5); RDW Standard Deviation 49.9 fL (36.4-46.3); Red Blood Count 3.12 M/uL (4.2-5.4); White Blood Count 8.66 K/uL (4.8-10.8)
[2019-09-18 07:24] LABS: Albumin Level 2.9 gm/dl (3.4-5.0); BUN Creatinine Ratio 13.2 (10-20); Calcium 8.3 mg/dl (8.5-10.1); Creatinine Clr Calc Pharmacy 10.9 ml/min; Est GFR (African American) 10.1; Est GFR (Non-African American) 8.7; Potassium 4.1 mmol/L (3.5-5.1)
[2019-09-18 07:27] LABS: Albumin Globulin Ratio 0.9 (0.9-2); Bilirubin,Total 0.6 mg/dl (0.2-1); Globulin 3.3 gm/dl (2.5-4.0); Total Protein 6.2 gm/dl (6.4-8.2)
[2019-09-18] MEDS: CARBOHYDRATES FOR HYPOGLYCEMIA PO PRN (07:40)
[2019-09-18] MEDS: INSULIN ASPART 100 UNITS/ML 3 ML PEN SC SCH ×4 (08:44→21:43)
[2019-09-18] MEDS: METOPROLOL TARTRATE 25 MG TAB PO SCH ×2 (08:46→21:45)
[2019-09-18] MEDS: AMLODIPINE BESYLATE 5 MG TAB PO SCH (08:46)
[2019-09-18] MEDS: GABAPENTIN 100 MG CAP PO SCH (08:46)
[2019-09-18] MEDS: AZITHROMYCIN 250 MG TAB PO SCH (08:47)
--- NOTE | 2019-09-18 09:33 | XRay Report ---
XR chest 1V portable HISTORY: 89 years-old Female R basilar infiltrate all of study in a patient with right lung base [facility] COMPARISON: Chest radiograph 09/16/2019 TECHNIQUE: Portable AP view of the chest FINDINGS: Cardiac silhouette is enlarged, unchanged. Mild pulmonary vascular congestion is suggested. Calcified plaque of the thoracic aortic arch. Blunting of the costophrenic angles suggests trace effusions. Mi ld persistent bibasilar opacities. Possible underlying emphysema. No pneumothorax. Degenerative leong es of the shoulders and spine. IMPRESSION: 1. Cardiomegaly with pulmonary vascular congestion. 2. Probable trace pleural effusions with persistent bibasilar opacities favoring atelectasis. Correla te clinically to exclude pneumonitis. The above report was generated using voice recognition software. It may contain grammatical, syntax o r spelling errors. Electronically signed by: Jonathan Carr M.D. 09/18/2019 9:31 AM
--- NOTE | 2019-09-18 09:47 | Nephrology Progress Note ---
Date of Service September 18, 2019 Assessment & Plan (1) ROSA (acute kidney injury): Creatinine 4.2 on admission. This had been 2.0 when last checked as outpatient 12/18. FeNa > 1%. Patient appears clinically volume contracted. No significant change in kidney function despite gentle hydration. Urine sediment w/ hematuria and pyuria. Patient has recently been treated for UTI. Current urine culture is negative and patient has no urinary symptoms. Urine protein needs to be quantitated. In November UPCR was 0.3. Renal US reveals mild cortical thinning but no hydronephrosis, stone, mass or cyst. 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 Baseline Cr 1.7 - 2.0 (Nov 2018) (3) Hematuria: -- Urine culture is negative -- Renal US without structural defect -- On Warfarin due to atrial fibrillation. INR 2.7 -- Will recheck urine microscopy. If persistent hematuria may need to consider cystoscopy (4) Hypertension: -- Heplock IV -- Continue Metoprolol. Agree w/ adding Amlodipine (5) Pulmonary infiltrate: -- On empiric Ceftriaxone therapy -- CXR 09/18/19 shows improvement in RLL infiltrate (6) Diabetes mellitus with diabetic neuropathy: (7) AF (paroxysmal atrial fibrillation): (8) Hypothyroidism: Subjective Mrs. Pearce was seen & examined in her hospital room this morning. She denies fever, dyspnea or productive cough. Her R hip discomfort has improved. Her primary concern is elevated blood pressure. She notes that the hospitalist service has added Amlodipine to her medical regimen. Patient c/o diarrhea but no UO or BM recorded in EMR Review of Systems Constitutional: + weakness; no fever and no chills Eyes: no worsening vision and no problem reported Ear, Nose, Mouth, Throat: no problem reported Respiratory: no cough and no dyspnea Cardiovascular: + edema (trace LE swelling); no chest pain and no palpitations Gastrointestinal: + diarrhea/loose stools; no abdominal pain, no nausea and no vomiting Genitourinary: no dysuria and no hematuria Musculoskeletal: no back pain Integumentary: no rash Neurologic: no falls, no dizziness and no confusion Physical Exam Constitutional: + overweight; not in distress Eyes: PERRL, conjunctivae normal, anicteric sclerae ENMT: external ear and nose normal, oropharynx normal Neck: trachea midline, no thyromegaly Respiratory: normal respiratory effort, lungs clear to auscultation Cardiovascular: Rate/Rhythm: + irregularly irregular Heart Sounds: no murmur Extremities: + edema (trace LE edema) Gastrointestinal (Abdomen): normal bowel sounds, soft, nontender, no hepatosplenomegaly Musculoskeletal: Extremities: no cyanosis Skin: no rashes, warm and dry Neurologic: awake; not confused Results & Data Vital Signs (Past 12 Hours) Vital Signs Temp Pulse Pulse Resp BP Pulse Ox 09/18/19 08:07 36.5 C 82 20 177/75 H 94 09/18/19 05:13 75 18 198/88 H 91 09/18/19 05:05 210/85 H 09/18/19 04:35 36.8 C 72 21 219/80 H 91 09/18/19 03:12 58 L 09/17/19 22:58 36.8 C 59 L 20 187/72 H 91 09/17/19 22:38 187/69 H Laboratory Results Laboratory Tests 09/17/19 09/18/19 09/18/19 22:15 06:19 06:19 WBC 8.66 Hgb 9.7 L Hct 29.0 L Sodium 144 Potassium 4.1 Chloride 115 H Carbon Dioxide 21 BUN 56 H Creatinine 4.27 H Calcium 8.3 L Albumin 2.9 L Urine Color Yellow Urine Appearance Clear Urine pH 5.0 Ur Specific [place] 1.014 Urine Protein 2+ H Urine Blood 3+ H Urine RBC (Auto) >30 H U Epithel Cells (Auto) 5-10 H PG Care Time/CCT Total # of Minutes Spent Total Time Spent with Patient: Total time spent is greater than 50% in coordination of care (as documented) at patient's floor/unit and/or counseling patient:
[2019-09-18] MEDS ORDERED: AMLODIPINE BESYLATE 5 MG TAB PO ONE (12:15)
[2019-09-18 14:58] LABS: Appearance Urine Clear (Clear); Bacteria Urine Automated Negative (Negative); Bilirubin Urine Negative (Negative); Blood Urine 3+ (Negative); Color Urine Yellow; Glucose Urine UA Negative (Negative); Ketones Urine Negative (Negative); Leukocyte Esterase Urine Negative (Negative); Nitrite Urine Negative (Negative); Protein Urine 2+ (Negative); RBC Urine Automated >30 /hpf (0-4); Specific Gravity Urine 1.015 (1.000-1.030); Urobilinogen Urine Negative (Negative)
[2019-09-18 15:12] LABS: Creatinine Urine Random 52.9 mg/dl; Protein Creatinine Ratio Urine 2.3 (0-0.2); Total Protein Urine Random 122.1 mg/dl (0-11.9)
[2019-09-18] MEDS: WARFARIN SOD 5 MG TAB PO SCH (15:58)
[2019-09-18] MEDS ORDERED: INSULIN GLARGINE SOLOSTAR 100 UNITS/ML 3 ML PEN SQ SCH (16:30)
--- NOTE | 2019-09-18 16:40 | Hospitalist Progress Note ---
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 with IVFs and FeNA >1% all likely consistent with progressive renal failure likely chronic Electrical Products Engineer stable today at 4.27, lytes ok, edema actually improved in LEs, no need for urgent HD Appreciate Neprho consultation dc IVFs -ok to restart low dose lasix 20mg daily as per Nephro -checking antibodies and workup for GN -repeat UA in AM and if has persistent microscopic hematuria--> would need cysto as outpt -check 24 hr urine protein as per Nephro -if renal function stable tomorrow, can be discharged with close f/u (3) Abnormal finding on urinalysis: UA abnormal as outpt and was started on cipro just prior to admission and grew Proteus pansensitive on cx UA noted for + leuk est, neg nitrites now after taking 1 dose CIpro Change to rocephin given CXR finding and treatment for PNA Cx now no growth -Rocephin should be adequate -repeating UA in AM (4) Gout: With right hip pain now resolved, not likely from gout Doppler RLE neg for DVT (5) Diabetes mellitus with diabetic neuropathy: With hypoglycemia here and has been having it at home too Appreciate CDE counseling A1c 9.0 on 09/09, will not recheck -lower Lantus to 20 units, continue SII (6) Hypertension: With significantly elevated BPS here, slightly improved but still reuqiring hydralazine -increase amlodipine to 10mg daily continue home metoprolol-can't go up on dose due to lower HR -IV hydralazine prn (7) Anemia: Baseline 13.1, now dropped from 10.4 on admission to 9.0 then back up today to 9.7, may be somewhat hemodilutional No obvious bleeding Iron panel consistent with chronic disease -follow CBC and may need Procrit as outpt (8) AF (paroxysmal atrial fibrillation): Rate controlled INR 2.7 on day of admission -continue Coumadin 5mg HS -follow INR in AM -continue metoprolol (9) Hyperlipidemia: -continue statin (10) Hypothyroidism: continue home med TSH WNL on 09/09, will not recheck (11) Pneumonia: CXR with Right sided infiltrate, no cough, no fevers but always has chills, no leukocytosis -treat with Rocephin and azithro Repeat CXR 09/18 with improved infiltrate--> question if was actually from pulm edema? -convert to cefdinir and continue po azithro for total 5 day course (12) DVT prophylaxis: Coumadin Dispo-remain hospitalized for renal failure, possible dc to home with home health tomorrow vs SNF if desired Stable to transfer off tele Subjective Pt feels better today, always has chills. Is upset about her BP being so high. Is making "a ton" of urine. Denies chest pain or SOB, does report a mild occasional cough. No nausea or abd pain. Discussed her case with Nephrology Tele with NSR rates 60-70s Review of Systems Review of Systems: All systems reviewed & are unremarkable except as noted in HPI & below Physical Exam Constitutional: WD/WN, vitals as above Eyes: + anicteric sclerae Neck: trachea midline, no thyromegaly Respiratory: normal respiratory effort, lungs clear to auscultation Cardiovascular: Rate/Rhythm: regular rate and regular rhythm Heart Sounds: no murmur Extremities: + edema (1+ pitting edema legs bilat improved) Gastrointestinal (Abdomen): normal bowel sounds, soft, nontender, no hepatosplenomegaly Musculoskeletal: Extremities: extremities normal to inspection; no cyanosis and no clubbing Skin: no rashes, warm and dry Neurologic: moves all extremities and awake; no focal motor deficits Psychiatric: A+Ox3, euthymic affect Results & Data Vital Signs (Past 12 Hours) Vital Signs Temp Pulse Pulse Resp BP Pulse Ox 09/18/19 16:00 37.3 C 76 20 189/64 H 95 09/18/19 11:56 67 09/18/19 11:15 36.7 C 62 20 190/72 H 96 09/18/19 08:07 36.5 C 82 20 177/75 H 94 09/18/19 05:13 75 18 198/88 H 91 09/18/19 05:05 210/85 H Laboratory Results 09/18/19 09/18/19 09/18/19 Range/Units 16:06 14:20 14:20 WBC (4.8-10.8) K/uL RBC (4.2-5.4) M/uL Hgb (12.0-16.0) g/dL Hct (37-47) % MCV (80-100) fL MCH (25-34) pg MCHC (32-36) g/dL RDW Std Deviation (36.4-46.3) fL RDW Coeff of Jon (11.5-14.5) % Plt Count (130-400) K/uL MPV (7.4-10.4) fL ESR (0-21) mm/hr Sodium (136-145) mmol/L Potassium (3.5-5.1) mmol/L Chloride (98-107) mmol/L Carbon Dioxide (21-32) mmol/L Anion Gap (3-11) BUN (7-18) mg/dl Creatinine (0.6-1.2) mg/dl Est Cr Clr Drug Dosing ml/min Est GFR ( Amer) Est GFR (Non-Af Amer) BUN/Creatinine Ratio (10-20) Glucose (70-99) mg/dl POC Glucose 178 H (70-99) Calcium (8.5-10.1) mg/dl Total Bilirubin (0.2-1) mg/dl AST (15-37) U/L ALT (12-78) U/L Alkaline Phosphatase (45-117) U/L Total Protein (6.4-8.2) gm/dl Albumin (3.4-5.0) gm/dl Globulin (2.5-4.0) gm/dl Albumin/Globulin Ratio (0.9-2) Urine Color Yellow Urine Appearance Clear (Clear) Urine pH 5.0 (4.5-7.5) Ur Specific [place] 1.015 (1.000-1.030) Urine Protein 2+ H (Negative) Urine Glucose (UA) Negative (Negative) Urine Ketones Negative (Negative) Urine Blood 3+ H (Negative) Urine Nitrite Negative (Negative) Urine Bilirubin Negative (Negative) Urine Urobilinogen Negative (Negative) Ur Leukocyte Esterase Negative (Negative) Urine WBC (Auto) 1-5 (0-5) /hpf Urine RBC (Auto) >30 H (0-4) /hpf U Hyaline Cast (Auto) 1-5 (0-5) /lpf U Epithel Cells (Auto) 5-10 H (0-5) /lpf Urine Bacteria (Auto) Negative (Negative) Ur Random Creatinine 52.9 mg/dl U Random Total Protein 122.1 H (0-11.9) mg/dl Ur Random Sodium mmol/L Protein/Creatinin Ratio 2.3 H (0-0.2) Serum Immunofixation TILA Screen Anti-Proteinase 3 Anti-Myeloperoxidase ANCA Hep Bs Antigen (Neg) HCV RNA (PCR) IUs/ml HCV RNA PCR log IUs/ml 09/18/19 09/18/19 09/18/19 Range/Units 11:41 09:48 09:48 WBC (4.8-10.8) K/uL RBC (4.2-5.4) M/uL Hgb (12.0-16.0) g/dL Hct (37-47) % MCV (80-100) fL MCH (25-34) pg MCHC (32-36) g/dL RDW Std Deviation (36.4-46.3) fL RDW Coeff of Jon (11.5-14.5) % Plt Count (130-400) K/uL MPV (7.4-10.4) fL ESR (0-21) mm/hr Sodium (136-145) mmol/L Potassium (3.5-5.1) mmol/L Chloride (98-107) mmol/L Carbon Dioxide (21-32) mmol/L Anion Gap (3-11) BUN (7-18) mg/dl Creatinine (0.6-1.2) mg/dl Est Cr Clr Drug Dosing ml/min Est GFR ( Amer) Est GFR (Non-Af Amer) BUN/Creatinine Ratio (10-20) Glucose (70-99) mg/dl POC Glucose 117 H (70-99) Calcium (8.5-10.1) mg/dl Total Bilirubin (0.2-1) mg/dl AST (15-37) U/L ALT (12-78) U/L Alkaline Phosphatase (45-117) U/L Total Protein (6.4-8.2) gm/dl Albumin (3.4-5.0) gm/dl Globulin (2.5-4.0) gm/dl Albumin/Globulin Ratio (0.9-2) Urine Color Urine Appearance (Clear) Urine pH (4.5-7.5) Ur Specific [place] (1.000-1.030) Urine Protein (Negative) Urine Glucose (UA) (Negative) Urine Ketones (Negative) Urine Blood (Negative) Urine Nitrite (Negative) Urine Bilirubin (Negative) Urine Urobilinogen (Negative) Ur Leukocyte Esterase (Negative) Urine WBC (Auto) (0-5) /hpf Urine RBC (Auto) (0-4) /hpf U Hyaline Cast (Auto) (0-5) /lpf U Epithel Cells (Auto) (0-5) /lpf Urine Bacteria (Auto) (Negative) Ur Random Creatinine mg/dl U Random Total Protein (0-11.9) mg/dl Ur Random Sodium mmol/L Protein/Creatinin Ratio (0-0.2) Serum Immunofixation Pending TILA Screen Pending Anti-Proteinase 3 Pending Anti-Myeloperoxidase Pending ANCA Pending Hep Bs Antigen Neg (Neg) HCV RNA (PCR) IUs/ml Pending HCV RNA PCR log IUs/ml Pending 09/18/19 09/18/19 09/18/19 Range/Units 09:48 08:49 07:54 WBC (4.8-10.8) K/uL RBC (4.2-5.4) M/uL Hgb (12.0-16.0) g/dL Hct (37-47) % MCV (80-100) fL MCH (25-34) pg MCHC (32-36) g/dL RDW Std Deviation (36.4-46.3) fL RDW Coeff of Jon (11.5-14.5) % Plt Count (130-400) K/uL MPV (7.4-10.4) fL ESR 7 (0-21) mm/hr Sodium (136-145) mmol/L Potassium (3.5-5.1) mmol/L Chloride (98-107) mmol/L Carbon Dioxide (21-32) mmol/L Anion Gap (3-11) BUN (7-18) mg/dl Creatinine 4.30 H (0.6-1.2) mg/dl Est Cr Clr Drug Dosing ml/min Est GFR ( Amer) Est GFR (Non-Af Amer) BUN/Creatinine Ratio (10-20) Glucose (70-99) mg/dl POC Glucose 89 (70-99) Calcium (8.5-10.1) mg/dl Total Bilirubin (0.2-1) mg/dl AST (15-37) U/L ALT (12-78) U/L Alkaline Phosphatase (45-117) U/L Total Protein (6.4-8.2) gm/dl Albumin (3.4-5.0) gm/dl Globulin (2.5-4.0) gm/dl Albumin/Globulin Ratio (0.9-2) Urine Color Urine Appearance (Clear) Urine pH (4.5-7.5) Ur Specific [place] (1.000-1.030) Urine Protein (Negative) Urine Glucose (UA) (Negative) Urine Ketones (Negative) Urine Blood (Negative) Urine Nitrite (Negative) Urine Bilirubin (Negative) Urine Urobilinogen (Negative) Ur Leukocyte Esterase (Negative) Urine WBC (Auto) (0-5) /hpf Urine RBC (Auto) (0-4) /hpf U Hyaline Cast (Auto) (0-5) /lpf U Epithel Cells (Auto) (0-5) /lpf Urine Bacteria (Auto) (Negative) Ur Random Creatinine mg/dl U Random Total Protein (0-11.9) mg/dl Ur Random Sodium mmol/L Protein/Creatinin Ratio (0-0.2) Serum Immunofixation TILA Screen Anti-Proteinase 3 Anti-Myeloperoxidase ANCA Hep Bs Antigen (Neg) HCV RNA (PCR) IUs/ml HCV RNA PCR log IUs/ml 09/18/19 09/18/19 09/18/19 Range/Units 07:33 07:33 06:19 WBC (4.8-10.8) K/uL RBC (4.2-5.4) M/uL Hgb (12.0-16.0) g/dL Hct (37-47) % MCV (80-100) fL MCH (25-34) pg MCHC (32-36) g/dL RDW Std Deviation (36.4-46.3) fL RDW Coeff of Jon (11.5-14.5) % Plt Count (130-400) K/uL MPV (7.4-10.4) fL ESR (0-21) mm/hr Sodium 144 (136-145) mmol/L Potassium 4.1 (3.5-5.1) mmol/L Chloride 115 H (98-107) mmol/L Carbon Dioxide 21 (21-32) mmol/L Anion Gap 8.0 (3-11) BUN 56 H (7-18) mg/dl Creatinine 4.27 H (0.6-1.2) mg/dl Est Cr Clr Drug Dosing 10.9 ml/min Est GFR ( Amer) 10.1 Est GFR (Non-Af Amer) 8.7 BUN/Creatinine Ratio 13.2 (10-20) Glucose 57 L (70-99) mg/dl POC Glucose 62 L* 60 L* (70-99) Calcium 8.3 L (8.5-10.1) mg/dl Total Bilirubin 0.6 (0.2-1) mg/dl AST 20 (15-37) U/L ALT 18 (12-78) U/L Alkaline Phosphatase 76 (45-117) U/L Total Protein 6.2 L (6.4-8.2) gm/dl Albumin 2.9 L (3.4-5.0) gm/dl Globulin 3.3 (2.5-4.0) gm/dl Albumin/Globulin Ratio 0.9 (0.9-2) Urine Color Urine Appearance (Clear) Urine pH (4.5-7.5) Ur Specific [place] (1.000-1.030) Urine Protein (Negative) Urine Glucose (UA) (Negative) Urine Ketones (Negative) Urine Blood (Negative) Urine Nitrite (Negative) Urine Bilirubin (Negative) Urine Urobilinogen (Negative) Ur Leukocyte Esterase (Negative) Urine WBC (Auto) (0-5) /hpf Urine RBC (Auto) (0-4) /hpf U Hyaline Cast (Auto) (0-5) /lpf U Epithel Cells (Auto) (0-5) /lpf Urine Bacteria (Auto) (Negative) Ur Random Creatinine mg/dl U Random Total Protein (0-11.9) mg/dl Ur Random Sodium mmol/L Protein/Creatinin Ratio (0-0.2) Serum Immunofixation TILA Screen Anti-Proteinase 3 Anti-Myeloperoxidase ANCA Hep Bs Antigen (Neg) HCV RNA (PCR) IUs/ml HCV RNA PCR log IUs/ml 09/18/19 09/17/19 09/17/19 Range/Units 06:19 22:15 22:15 WBC 8.66 (4.8-10.8) K/uL RBC 3.12 L (4.2-5.4) M/uL Hgb 9.7 L (12.0-16.0) g/dL Hct 29.0 L (37-47) % MCV 92.9 (80-100) fL MCH 31.1 (25-34) pg MCHC 33.4 (32-36) g/dL RDW Std Deviation 49.9 H (36.4-46.3) fL RDW Coeff of Jon 14.7 H (11.5-14.5) % Plt Count 200 (130-400) K/uL MPV 10.3 (7.4-10.4) fL ESR (0-21) mm/hr Sodium (136-145) mmol/L Potassium (3.5-5.1) mmol/L Chloride (98-107) mmol/L Carbon Dioxide (21-32) mmol/L Anion Gap (3-11) BUN (7-18) mg/dl Creatinine (0.6-1.2) mg/dl Est Cr Clr Drug Dosing ml/min Est GFR ( Amer) Est GFR (Non-Af Amer) BUN/Creatinine Ratio (10-20) Glucose (70-99) mg/dl POC Glucose (70-99) Calcium (8.5-10.1) mg/dl Total Bilirubin (0.2-1) mg/dl AST (15-37) U/L ALT (12-78) U/L Alkaline Phosphatase (45-117) U/L Total Protein (6.4-8.2) gm/dl Albumin (3.4-5.0) gm/dl Globulin (2.5-4.0) gm/dl Albumin/Globulin Ratio (0.9-2) Urine Color Yellow Urine Appearance Clear (Clear) Urine pH 5.0 (4.5-7.5) Ur Specific [place] 1.014 (1.000-1.030) Urine Protein 2+ H (Negative) Urine Glucose (UA) Negative (Negative) Urine Ketones Negative (Negative) Urine Blood 3+ H (Negative) Urine Nitrite Negative (Negative) Urine Bilirubin Negative (Negative) Urine Urobilinogen Negative (Negative) Ur Leukocyte Esterase Negative (Negative) Urine WBC (Auto) 1-5 (0-5) /hpf Urine RBC (Auto) >30 H (0-4) /hpf U Hyaline Cast (Auto) 0 (0-5) /lpf U Epithel Cells (Auto) 5-10 H (0-5) /lpf Urine Bacteria (Auto) Negative (Negative) Ur Random Creatinine 33.4 mg/dl U Random Total Protein (0-11.9) mg/dl Ur Random Sodium 88 mmol/L Protein/Creatinin Ratio (0-0.2) Serum Immunofixation TILA Screen Anti-Proteinase 3 Anti-Myeloperoxidase ANCA Hep Bs Antigen (Neg) HCV RNA (PCR) IUs/ml HCV RNA PCR log IUs/ml 09/17/19 Range/Units 20:18 WBC (4.8-10.8) K/uL RBC (4.2-5.4) M/uL Hgb (12.0-16.0) g/dL Hct (37-47) % MCV (80-100) fL MCH (25-34) pg MCHC (32-36) g/dL RDW Std Deviation (36.4-46.3) fL RDW Coeff of Jon (11.5-14.5) % Plt Count (130-400) K/uL MPV (7.4-10.4) fL ESR (0-21) mm/hr Sodium (136-145) mmol/L Potassium (3.5-5.1) mmol/L Chloride (98-107) mmol/L Carbon Dioxide (21-32) mmol/L Anion Gap (3-11) BUN (7-18) mg/dl Creatinine (0.6-1.2) mg/dl Est Cr Clr Drug Dosing ml/min Est GFR ( Amer) Est GFR (Non-Af Amer) BUN/Creatinine Ratio (10-20) Glucose (70-99) mg/dl POC Glucose 104 H (70-99) Calcium (8.5-10.1) mg/dl Total Bilirubin (0.2-1) mg/dl AST (15-37) U/L ALT (12-78) U/L Alkaline Phosphatase (45-117) U/L Total Protein (6.4-8.2) gm/dl Albumin (3.4-5.0) gm/dl Globulin (2.5-4.0) gm/dl Albumin/Globulin Ratio (0.9-2) Urine Color Urine Appearance (Clear) Urine pH (4.5-7.5) Ur Specific [place] (1.000-1.030) Urine Protein (Negative) Urine Glucose (UA) (Negative) Urine Ketones (Negative) Urine Blood (Negative) Urine Nitrite (Negative) Urine Bilirubin (Negative) Urine Urobilinogen (Negative) Ur Leukocyte Esterase (Negative) Urine WBC (Auto) (0-5) /hpf Urine RBC (Auto) (0-4) /hpf U Hyaline Cast (Auto) (0-5) /lpf U Epithel Cells (Auto) (0-5) /lpf Urine Bacteria (Auto) (Negative) Ur Random Creatinine mg/dl U Random Total Protein (0-11.9) mg/dl Ur Random Sodium mmol/L Protein/Creatinin Ratio (0-0.2) Serum Immunofixation TILA Screen Anti-Proteinase 3 Anti-Myeloperoxidase ANCA Hep Bs Antigen (Neg) HCV RNA (PCR) IUs/ml HCV RNA PCR log IUs/ml Diagnostic Findings CXR image personally reviewed by me and agree with the following report: XR chest 1V portable HISTORY: 89 years-old Female R basilar infiltrate all of study in a patient with right lung base opacities COMPARISON: Chest radiograph 09/16/2019 TECHNIQUE: Portable AP view of the chest FINDINGS: Cardiac silhouette is enlarged, unchanged. Mild pulmonary vascular congestion is suggested. Calcified plaque of the thoracic aortic arch. Blunting of the costophrenic angles suggests trace effusions. Mild persistent bibasilar opacities. Possible underlying emphysema. No pneumothorax. Degenerative changes of the shoulders and spine. IMPRESSION: 1. Cardiomegaly with pulmonary vascular congestion. 2. Probable trace pleural effusions with persistent bibasilar opacities favoring atelectasis. Correlate clinically to exclude pneumonitis. PG Care Time/CCT Total # of Minutes Spent Total Time Spent with Patient: Total time spent is greater than 50% in coordination of care (as documented) at patient's floor/unit and/or counseling patient: (1) Anemia Anemia type: unspecified type Qualified Code(s): D64.9 - Anemia, unspecified
--- NOTE | 2019-09-18 17:57 | Hospitalist Progress Note ---
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 Operator Helper stable 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 at 4.27, lytes ok, edema actually improved in LEs, no need for urgent HD Appreciate Neprho consultation dc IVFs -ok to restart low dose lasix 20mg daily as per Nephro -checking antibodies and workup for GN -repeat UA in AM and if has persistent microscopic hematuria--> would need cysto as outpt -check 24 hr urine protein as per Nephro -if renal function stable tomorrow, can be discharged with close f/u (3) Abnormal finding on urinalysis: UA abnormal as outpt and was started on cipro just prior to admission and grew Proteus pansensitive on cx UA noted for + leuk est, neg nitrites now after taking 1 dose CIpro Change to rocephin given CXR finding and treatment for PNA Cx now no growth -Rocephin should be adequate -repeating UA in AM (4) Gout: With right hip pain now resolved, not likely from gout Doppler RLE neg for DVT (5) Diabetes mellitus with diabetic neuropathy: With hypoglycemia here and has been having it at home too Appreciate CDE counseling A1c 9.0 on 09/09, will not recheck -lower Lantus to 20 units, continue SII (6) Hypertension: With significantly elevated BPS here, slightly improved but still reuqiring hydralazine -increase amlodipine to 10mg daily continue home metoprolol-can't go up on dose due to lower HR -IV hydralazine prn (7) Anemia: Baseline 13.1, now dropped from 10.4 on admission to 9.0 then back up today to 9.7, may be somewhat hemodilutional No obvious bleeding Iron panel consistent with chronic disease -follow CBC and may need Procrit as outpt (8) AF (paroxysmal atrial fibrillation): Rate controlled INR 2.7 on day of admission -continue Coumadin 5mg HS -follow INR in AM -continue metoprolol (9) Hyperlipidemia: -continue statin (10) Hypothyroidism: continue home med TSH WNL on 09/09, will not recheck (11) Pneumonia: CXR with Right sided infiltrate, no cough, no fevers but always has chills, no leukocytosis -treat with Rocephin and azithro Repeat CXR 09/18 with improved infiltrate--> question if was actually from pulm edema? -convert to cefdinir and continue po azithro for total 5 day course (12) DVT prophylaxis: Coumadin Dispo-remain hospitalized for renal failure, possible dc to home with home health tomorrow vs SNF if desired Stable to transfer off tele Physical Exam Constitutional: WD/WN, vitals as above Eyes: PERRL, conjunctivae normal, anicteric sclerae + anicteric sclerae ENMT: external ear and nose normal, oropharynx normal Neck: trachea midline, no thyromegaly Respiratory: normal respiratory effort, lungs clear to auscultation normal respiratory effort Auscultation: + crackles (right lower lung field); no rhonchi and no wheezes Cardiovascular: RRR, no murmur, no edema Rate/Rhythm: regular rate and regular rhythm Heart Sounds: no murmur Extremities: + edema (1+ pitting edema legs bilat improved) Gastrointestinal (Abdomen): normal bowel sounds, soft, nontender, no hepatosplenomegaly Musculoskeletal: Extremities: extremities normal to inspection; no cyanosis and no clubbing Skin: no rashes, warm and dry Neurologic: moves all extremities and awake; no focal motor deficits Psychiatric: A+Ox3, euthymic affect Results & Data Vital Signs (Past 12 Hours) Vital Signs Temp Pulse Pulse Resp BP Pulse Ox 09/18/19 16:00 37.3 C 76 20 189/64 H 95 09/18/19 11:56 67 09/18/19 11:15 36.7 C 62 20 190/72 H 96 09/18/19 08:07 36.5 C 82 20 177/75 H 94 PG Care Time/CCT Total # of Minutes Spent Total Time Spent with Patient: Total time spent is greater than 50% in coordination of care (as documented) at patient's floor/unit and/or counseling patient: (1) Anemia Anemia type: unspecified type Qualified Code(s): D64.9 - Anemia, unspecified
[2019-09-18] MEDS: CEFDINIR 300 MG CAP PO SCH (21:44)
[2019-09-18] MEDS: ATORVASTATIN 10 MG TAB PO SCH (21:44)
[2019-09-18] MEDS: GABAPENTIN 300 MG CAP PO SCH (21:45)
[2019-09-19] MEDS: LEVOTHYROXINE SODIUM 112 MCG TABLET PO SCH (05:54)
[2019-09-19 07:23] LABS: Hematocrit (blood only) 30.8 % (37-47); Hemoglobin 10.2 g/dL (12.0-16.0); Mean Corpuscular Hemoglobin 30.8 pg (25-34); Mean Corpuscular Hgb Conc 33.1 g/dL (32-36); Mean Corpuscular Volume 93.1 fL (80-100); Mean Platelet Volume 10.7 fL (7.4-10.4); Platelet Count 227 K/uL (130-400); RDW Coefficient of Variation 14.7 % (11.5-14.5); RDW Standard Deviation 50.2 fL (36.4-46.3); Red Blood Count 3.31 M/uL (4.2-5.4); White Blood Count 8.17 K/uL (4.8-10.8)
[2019-09-19 07:31] LABS: INR 3.2 (0.9-1.1); Prothrombin Time 29.9 Seconds (9.0-12.0)
[2019-09-19 08:11] LABS: Albumin Globulin Ratio 0.7 (0.9-2); BUN Creatinine Ratio 13.9 (10-20); Bilirubin,Total 0.8 mg/dl (0.2-1); Creatinine Clr Calc Pharmacy 10.2 ml/min; Est GFR (African American) 9.3; Globulin 4.1 gm/dl (2.5-4.0); Potassium 4.2 mmol/L (3.5-5.1); Total Protein 7.1 gm/dl (6.4-8.2)
[2019-09-19] MEDS: INSULIN ASPART 100 UNITS/ML 3 ML PEN SC SCH ×4 (08:37→20:52)
[2019-09-19] MEDS: AMLODIPINE BESYLATE 5 MG TAB PO SCH (08:41)
[2019-09-19] MEDS: AZITHROMYCIN 250 MG TAB PO SCH (08:41)
[2019-09-19] MEDS: GABAPENTIN 100 MG CAP PO SCH (08:41)
[2019-09-19] MEDS: METOPROLOL TARTRATE 25 MG TAB PO SCH ×2 (08:41→20:54)
[2019-09-19 10:56] LABS: Hepatitis B Surface Ab Quant < 3.10 mIU/mL (>or=10mIU/mL Immune); Hepatitis B Surface Antibody Non-Immune
[2019-09-19 11:07] LABS: Hepatitis B Surface Antigen Neg (Neg)
--- NOTE | 2019-09-19 12:05 | Nephrology Progress Note ---
Date of Service September 19, 2019 Assessment & Plan (1) ROSA (acute kidney injury): Creatinine 4.2 on admission. This had been 2.0 when last checked as outpatient 12/17/18. FeNa > 1%. Patient appears clinically volume contracted. No significant change in kidney function despite gentle hy dration. Urine sediment w/ hematuria and pyuria. Patient has recently been treated for UTI. Current urine culture is negative and patient has no urinary symptoms. Urine protein has risen from 0.3 to 2.0. Renal US reveals mild cortical thinning but no hydronephrosis, stone, mass or cyst. Patient likely has underlying diabetic nephropathy and hypertensive nephrosclerosis -- Await testing results for vasculitis/glomerulonephritis. SIEP is pending. ESR is 7. -- 24 hour urine for quantitation of kidney function and urinary protein excretion is pending -- Clinically suspect progression of diabetic nephropathy. 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 Patient is agreeable to starting HD if necessary. I attempted to discuss this with patient's and daughter this morning but was unable to reach them by telephone -- Monitor serial PRP. 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 Baseline Cr 1.7 - 2.0 (Nov 2018) (3) Hematuria: -- Urine culture is negative -- Renal US without structural defect -- On Warfarin due to atrial fibrillation. INR 2.7 -- Will recheck urine microscopy. If persistent hematuria may need to consider cystoscopy (4) Hypertension: -- Heplock IV -- Continue Metoprolol -- Amlodipine dose increased this morning (5) Pulmonary infiltrate: -- On empiric Ceftriaxone therapy -- CXR 09/18/19 shows improvement in RLL infiltrate (6) Diabetes mellitus with diabetic neuropathy: (7) AF (paroxysmal atrial fibrillation): (8) Hypothyroidism: Subjective Mrs. Pearce was seen & examined in her hospital room this morning. She currently denies DOMINGO, visual change, angina or dyspnea. She notes that her hip discomfort and diarrhea have resolved. Review of Systems Constitutional: + weakness; no fever and no chills Eyes: no worsening vision and no problem reported Ear, Nose, Mouth, Throat: no problem reported Respiratory: no cough and no dyspnea Cardiovascular: + edema (trace LE swelling); no chest pain and no palpitations Gastrointestinal: no abdominal pain, no nausea and no vomiting Genitourinary: no dysuria and no hematuria Musculoskeletal: no back pain Integumentary: no rash Neurologic: no falls, no dizziness and no confusion Physical Exam Constitutional: + overweight; not in distress Eyes: PERRL, conjunctivae normal, anicteric sclerae ENMT: external ear and nose normal, oropharynx normal Neck: trachea midline, no thyromegaly Respiratory: normal respiratory effort, lungs clear to auscultation Cardiovascular: Rate/Rhythm: + irregularly irregular Heart Sounds: no murmur Extremities: + edema (trace LE edema) Gastrointestinal (Abdomen): normal bowel sounds, soft, nontender, no hepatosplenomegaly Musculoskeletal: Extremities: no cyanosis Skin: no rashes, warm and dry Neurologic: awake; not confused Results & Data Vital Signs (Past 12 Hours) Vital Signs Temp Pulse Resp BP Pulse Ox 09/19/19 07:48 36.7 C 64 18 186/74 H 98 PG Care Time/CCT Total # of Minutes Spent Total Time Spent with Patient: Total time spent is greater than 50% in coordination of care (as documented) at patient's floor/unit and/or counseling patient:
--- NOTE | 2019-09-19 13:05 | Hospitalist Progress Note ---
Date of Service September 19, 2019 Assessment & Plan (1) Weakness: Likely secondary to worsening renal failure and PNA See below for plans PT/OT evals recommend SNF for PT and home for OT Improved and not interested in going to SNF (2) ROSA (acute kidney injury): Baseline CKD III with cr 1.5 Elevated to 4.1 on admission, unclear how long ago this happened as most recent labs prior to this were from 11/2018, but has been feeling unwell for 2 months Non-oliguric Renal US without obstruction Brick Burner Head not improving with IVFs and FeNA >1% all likely consistent with progressive renal failure likely chronic from HTN, DM Brick Burner Head worse today at 4.57 after restarting lasix po and stopping IVFs, lytes ok, edema actually improved in LEs, no need for urgent HD but approaching time for need for HD Nephrology has attempted to call family and awaiting return call to discuss starting HD -if nuclear physicist continues to rise, would get perm cath and start HD as inpatient BPs remain uncontrolled but improved with adding amlodipine Appreciate Nephro consultation -contiue lasix 20mg daily as per my discussion with Nephro -checking antibodies and workup for GN -repeat UA with persistent microscopic hematuria--> would need cysto as outpt -check 24 hr urine protein, SPEP pending (3) Abnormal finding on urinalysis: UA abnormal for signs of infection as outpt and was started on cipro just prior to admission and grew Proteus pansensitive on cx UA noted for + leuk est, neg nitrites now after taking 1 dose Cipro Changed to rocephin given CXR finding and treatment for PNA Cx now no growth -Rocephin should be adequate (4) Gout: With right hip pain now resolved, not likely from gout Doppler RLE neg for DVT (5) Diabetes mellitus with diabetic neuropathy: With hypoglycemia here and has been having it at home too--> now with hyperglycemia since reducing insulin dose Appreciate CDE counseling A1c 9.0 on 09/09, will not recheck -increase Lantus to 27 units, increase SSI (6) Hypertension: With significantly elevated BPS here, now somewhat improved with increasing amlodipine to 10mg daily -continue [id number] daily continue home metoprolol-can't go up on dose due to lower HR -IV hydralazine prn and could add po hydralazine -may need HD if not improving (7) Anemia: Baseline 13.1, now dropped from 10.4 on admission to 9.0 then back up today to 10.2, may be somewhat hemodilutional No obvious bleeding Iron panel consistent with chronic disease -follow CBC and may need Procrit as outpt (8) AF (paroxysmal atrial fibrillation): Has been in sinus rhty here INR 2.7 on day of admission, now up to 3.2 -hold Coumadin 5mg today -follow INR in AM -continue metoprolol (9) Hyperlipidemia: -continue statin (10) Hypothyroidism: continue home med TSH WNL on 09/09, will not recheck (11) Pneumonia: CXR with Right sided infiltrate, no cough, no fevers but always has chills, no leukocytosis -treated initially with Rocephin and azithro--> now converted to cefdinir and azithro Repeat CXR 09/18 with improved infiltrate--> question if was actually was from pulm edema? -finish out course of cefdinir and po azithro for total 5 day course (12) DVT prophylaxis: Coumadin Dispo-remain hospitalized for renal failure, possibility of starting HD as inpatient Subjective Feels great today. Denies any problems, is feeling stronger. Denies SOB, cough, or chest pain. No nausea, is kayleigh po, making plenty of urine. BPs remain quite high. Review of Systems Review of Systems: All systems reviewed & are unremarkable except as noted in HPI & below Physical Exam Constitutional: WD/WN, vitals as above Eyes: + anicteric sclerae Neck: trachea midline, no thyromegaly Respiratory: normal respiratory effort, lungs clear to auscultation Cardiovascular: Rate/Rhythm: regular rate and regular rhythm Extremities: + edema (1+ pitting edema legs to knees bilat) Gastrointestinal (Abdomen): normal bowel sounds, soft, nontender, no hepatosplenomegaly Musculoskeletal: Extremities: extremities normal to inspection; no cyanosis and no clubbing Skin: no rashes, warm and dry Neurologic: moves all extremities and awake; no focal motor deficits Psychiatric: A+Ox3, euthymic affect Results & Data Vital Signs (Past 12 Hours) Vital Signs Temp Pulse Resp BP Pulse Ox 09/19/19 12:53 37.0 C 54 L 20 165/73 H 96 09/19/19 07:48 36.7 C 64 18 186/74 H 98 Laboratory Results 09/19/19 09/19/19 09/19/19 Range/Units 11:40 10:01 10:01 WBC (4.8-10.8) K/uL RBC (4.2-5.4) M/uL Hgb (12.0-16.0) g/dL Hct (37-47) % MCV (80-100) fL MCH (25-34) pg MCHC (32-36) g/dL RDW Std Deviation (36.4-46.3) fL RDW Coeff of Jon (11.5-14.5) % Plt Count (130-400) K/uL MPV (7.4-10.4) fL PT (9.0-12.0) Seconds INR (0.9-1.1) Sodium (136-145) mmol/L Potassium (3.5-5.1) mmol/L Chloride (98-107) mmol/L Carbon Dioxide (21-32) mmol/L Anion Gap (3-11) BUN (7-18) mg/dl Creatinine (0.6-1.2) mg/dl Est Cr Clr Drug Dosing ml/min Est GFR ( Amer) Est GFR (Non-Af Amer) BUN/Creatinine Ratio (10-20) Glucose (70-99) mg/dl POC Glucose 274 H (70-99) Calcium (8.5-10.1) mg/dl Total Bilirubin (0.2-1) mg/dl AST (15-37) U/L ALT (12-78) U/L Alkaline Phosphatase (45-117) U/L Total Protein (6.4-8.2) gm/dl Albumin (3.4-5.0) gm/dl Globulin (2.5-4.0) gm/dl Albumin/Globulin Ratio (0.9-2) Urine Color Urine Appearance (Clear) Urine pH (4.5-7.5) Ur Specific [place] (1.000-1.030) Urine Protein (Negative) Urine Glucose (UA) (Negative) Urine Ketones (Negative) Urine Blood (Negative) Urine Nitrite (Negative) Urine Bilirubin (Negative) Urine Urobilinogen (Negative) Ur Leukocyte Esterase (Negative) Urine WBC (Auto) (0-5) /hpf Urine RBC (Auto) (0-4) /hpf U Hyaline Cast (Auto) (0-5) /lpf U Epithel Cells (Auto) (0-5) /lpf Urine Bacteria (Auto) (Negative) Ur Random Creatinine mg/dl U Random Total Protein (0-11.9) mg/dl Protein/Creatinin Ratio (0-0.2) Serum Immunofixation Hep Bs Antigen Neg (Neg) Hep Bs Antibody Non-Immune Hep Bs Antibody, Quant < 3.10 L (>or=10mIU/mL Immune) mIU/mL Hep B Core IgM Ab Pending 09/19/19 09/19/19 09/19/19 Range/Units 07:23 06:40 06:40 WBC (4.8-10.8) K/uL RBC (4.2-5.4) M/uL Hgb (12.0-16.0) g/dL Hct (37-47) % MCV (80-100) fL MCH (25-34) pg MCHC (32-36) g/dL RDW Std Deviation (36.4-46.3) fL RDW Coeff of Jon (11.5-14.5) % Plt Count (130-400) K/uL MPV (7.4-10.4) fL PT 29.9 H (9.0-12.0) Seconds INR 3.2 H (0.9-1.1) Sodium 144 (136-145) mmol/L Potassium 4.2 (3.5-5.1) mmol/L Chloride 114 H (98-107) mmol/L Carbon Dioxide 20 L (21-32) mmol/L Anion Gap 10.0 (3-11) BUN 63 H (7-18) mg/dl Creatinine 4.57 H* (0.6-1.2) mg/dl Est Cr Clr Drug Dosing 10.2 ml/min Est GFR ( Amer) 9.3 Est GFR (Non-Af Amer) 8.0 BUN/Creatinine Ratio 13.9 (10-20) Glucose 141 H (70-99) mg/dl POC Glucose 142 H (70-99) Calcium 9.0 (8.5-10.1) mg/dl Total Bilirubin 0.8 (0.2-1) mg/dl AST 27 (15-37) U/L ALT 18 (12-78) U/L Alkaline Phosphatase 87 (45-117) U/L Total Protein 7.1 (6.4-8.2) gm/dl Albumin 3.0 L (3.4-5.0) gm/dl Globulin 4.1 H (2.5-4.0) gm/dl Albumin/Globulin Ratio 0.7 L (0.9-2) Urine Color Urine Appearance (Clear) Urine pH (4.5-7.5) Ur Specific [place] (1.000-1.030) Urine Protein (Negative) Urine Glucose (UA) (Negative) Urine Ketones (Negative) Urine Blood (Negative) Urine Nitrite (Negative) Urine Bilirubin (Negative) Urine Urobilinogen (Negative) Ur Leukocyte Esterase (Negative) Urine WBC (Auto) (0-5) /hpf Urine RBC (Auto) (0-4) /hpf U Hyaline Cast (Auto) (0-5) /lpf U Epithel Cells (Auto) (0-5) /lpf Urine Bacteria (Auto) (Negative) Ur Random Creatinine mg/dl U Random Total Protein (0-11.9) mg/dl Protein/Creatinin Ratio (0-0.2) Serum Immunofixation Hep Bs Antigen (Neg) Hep Bs Antibody Hep Bs Antibody, Quant (>or=10mIU/mL Immune) mIU/mL Hep B Core IgM Ab 09/19/19 09/19/19 09/18/19 Range/Units 06:40 06:40 20:17 WBC 8.17 (4.8-10.8) K/uL RBC 3.31 L (4.2-5.4) M/uL Hgb 10.2 L (12.0-16.0) g/dL Hct 30.8 L (37-47) % MCV 93.1 (80-100) fL MCH 30.8 (25-34) pg MCHC 33.1 (32-36) g/dL RDW Std Deviation 50.2 H (36.4-46.3) fL RDW Coeff of Jon 14.7 H (11.5-14.5) % Plt Count 227 (130-400) K/uL MPV 10.7 H (7.4-10.4) fL PT (9.0-12.0) Seconds INR (0.9-1.1) Sodium (136-145) mmol/L Potassium (3.5-5.1) mmol/L Chloride (98-107) mmol/L Carbon Dioxide (21-32) mmol/L Anion Gap (3-11) BUN (7-18) mg/dl Creatinine (0.6-1.2) mg/dl Est Cr Clr Drug Dosing ml/min Est GFR ( Amer) Est GFR (Non-Af Amer) BUN/Creatinine Ratio (10-20) Glucose (70-99) mg/dl POC Glucose 223 H (70-99) Calcium (8.5-10.1) mg/dl Total Bilirubin (0.2-1) mg/dl AST (15-37) U/L ALT (12-78) U/L Alkaline Phosphatase (45-117) U/L Total Protein (6.4-8.2) gm/dl Albumin (3.4-5.0) gm/dl Globulin (2.5-4.0) gm/dl Albumin/Globulin Ratio (0.9-2) Urine Color Urine Appearance (Clear) Urine pH (4.5-7.5) Ur Specific [place] (1.000-1.030) Urine Protein (Negative) Urine Glucose (UA) (Negative) Urine Ketones (Negative) Urine Blood (Negative) Urine Nitrite (Negative) Urine Bilirubin (Negative) Urine Urobilinogen (Negative) Ur Leukocyte Esterase (Negative) Urine WBC (Auto) (0-5) /hpf Urine RBC (Auto) (0-4) /hpf U Hyaline Cast (Auto) (0-5) /lpf U Epithel Cells (Auto) (0-5) /lpf Urine Bacteria (Auto) (Negative) Ur Random Creatinine mg/dl U Random Total Protein (0-11.9) mg/dl Protein/Creatinin Ratio (0-0.2) Serum Immunofixation Pending Hep Bs Antigen (Neg) Hep Bs Antibody Hep Bs Antibody, Quant (>or=10mIU/mL Immune) mIU/mL Hep B Core IgM Ab 09/18/19 09/18/19 09/18/19 Range/Units 16:06 14:20 14:20 WBC (4.8-10.8) K/uL RBC (4.2-5.4) M/uL Hgb (12.0-16.0) g/dL Hct (37-47) % MCV (80-100) fL MCH (25-34) pg MCHC (32-36) g/dL RDW Std Deviation (36.4-46.3) fL RDW Coeff of Jon (11.5-14.5) % Plt Count (130-400) K/uL MPV (7.4-10.4) fL PT (9.0-12.0) Seconds INR (0.9-1.1) Sodium (136-145) mmol/L Potassium (3.5-5.1) mmol/L Chloride (98-107) mmol/L Carbon Dioxide (21-32) mmol/L Anion Gap (3-11) BUN (7-18) mg/dl Creatinine (0.6-1.2) mg/dl Est Cr Clr Drug Dosing ml/min Est GFR ( Amer) Est GFR (Non-Af Amer) BUN/Creatinine Ratio (10-20) Glucose (70-99) mg/dl POC Glucose 178 H (70-99) Calcium (8.5-10.1) mg/dl Total Bilirubin (0.2-1) mg/dl AST (15-37) U/L ALT (12-78) U/L Alkaline Phosphatase (45-117) U/L Total Protein (6.4-8.2) gm/dl Albumin (3.4-5.0) gm/dl Globulin (2.5-4.0) gm/dl Albumin/Globulin Ratio (0.9-2) Urine Color Yellow Urine Appearance Clear (Clear) Urine pH 5.0 (4.5-7.5) Ur Specific [place] 1.015 (1.000-1.030) Urine Protein 2+ H (Negative) Urine Glucose (UA) Negative (Negative) Urine Ketones Negative (Negative) Urine Blood 3+ H (Negative) Urine Nitrite Negative (Negative) Urine Bilirubin Negative (Negative) Urine Urobilinogen Negative (Negative) Ur Leukocyte Esterase Negative (Negative) Urine WBC (Auto) 1-5 (0-5) /hpf Urine RBC (Auto) >30 H (0-4) /hpf U Hyaline Cast (Auto) 1-5 (0-5) /lpf U Epithel Cells (Auto) 5-10 H (0-5) /lpf Urine Bacteria (Auto) Negative (Negative) Ur Random Creatinine 52.9 mg/dl U Random Total Protein 122.1 H (0-11.9) mg/dl Protein/Creatinin Ratio 2.3 H (0-0.2) Serum Immunofixation Hep Bs Antigen (Neg) Hep Bs Antibody Hep Bs Antibody, Quant (>or=10mIU/mL Immune) mIU/mL Hep B Core IgM Ab PG Care Time/CCT Total # of Minutes Spent Total Time Spent with Patient: Total time spent is greater than 50% in coordination of care (as documented) at patient's floor/unit and/or counseling patient: (1) Anemia Anemia type: unspecified type Qualified Code(s): D64.9 - Anemia, unspecified
[2019-09-19] MEDS: ACETAMINOPHEN 325 MG TAB PO PRN ×2 (15:37→20:50)
[2019-09-19 16:08] LABS: Patient Weight 103.8 kg
[2019-09-19 16:33] LABS: Urine Total Protein 137.3 mg/dl
[2019-09-19 16:37] LABS: Urine Creatinine 86.7 mg/dl
[2019-09-19] MEDS: INSULIN GLARGINE SOLOSTAR 100 UNITS/ML 3 ML PEN SQ SCH (17:54)
[2019-09-19 19:54] LABS: Creatinine Clearance Urine 8.7 ml/min (88-128); Total Protein 24 Hour Urine 1098.4 mg/24 Hr (0-149.1)
[2019-09-19] MEDS: CEFDINIR 300 MG CAP PO SCH (20:51)
[2019-09-19] MEDS: GABAPENTIN 300 MG CAP PO SCH (20:53)
[2019-09-19] MEDS: ATORVASTATIN 10 MG TAB PO SCH (20:57)
[2019-09-19] MEDS ORDERED: TRAMADOL HCL 50 MG TABLET PO STA (23:43)
[2019-09-20] MEDS: ACETAMINOPHEN 325 MG TAB PO PRN (05:37)
[2019-09-20] MEDS: LEVOTHYROXINE SODIUM 112 MCG TABLET PO SCH (06:22)
[2019-09-20] MEDS: AMLODIPINE BESYLATE 5 MG TAB PO SCH (08:13)
[2019-09-20] MEDS: AZITHROMYCIN 250 MG TAB PO SCH (08:13)
[2019-09-20] MEDS: INSULIN ASPART 100 UNITS/ML 3 ML PEN SC SCH ×4 (08:13→20:58)
[2019-09-20] MEDS: METOPROLOL TARTRATE 25 MG TAB PO SCH ×2 (08:13→21:03)
[2019-09-20] MEDS: GABAPENTIN 100 MG CAP PO SCH (08:14)
[2019-09-20 09:13] LABS: Hematocrit (blood only) 28.3 % (37-47); Hemoglobin 9.5 g/dL (12.0-16.0); Mean Corpuscular Hgb Conc 33.6 g/dL (32-36); Mean Corpuscular Volume 92.5 fL (80-100); Mean Platelet Volume 9.8 fL (7.4-10.4); Platelet Count 227 K/uL (130-400); RDW Coefficient of Variation 14.7 % (11.5-14.5); RDW Standard Deviation 49.8 fL (36.4-46.3); Red Blood Count 3.06 M/uL (4.2-5.4); White Blood Count 9.68 K/uL (4.8-10.8)
[2019-09-20 10:07] LABS: BUN Creatinine Ratio 14.3 (10-20); Calcium 8.8 mg/dl (8.5-10.1); Creatinine Clr Calc Pharmacy 10.2 ml/min; Est GFR (African American) 9.3; Phosphorus 4.7 mg/dl (2.5-4.9); Potassium 4.5 mmol/L (3.5-5.1)
--- NOTE | 2019-09-20 12:37 | Nephrology Progress Note ---
Date of Service September 20, 2019 Assessment & Plan (1) ROSA (acute kidney injury): Creatinine 4.2 on admission. This had been 2.0 when last checked as outpatient 12/17/18. No significant change in kidney function despite gentle hydration. Urine sediment w/ hematuria and pyuria. Patient has recently been treated for UTI. Current urine culture is negative and patient has no urinary symptoms. Urine protein has risen from 0.3 to 2.0. Renal US reveals mild cortical thinning but no hydronephrosis, stone, mass or cyst. Patient likely has underlying diabetic nephropathy and hypertensive nephrosclerosis with progression of CKD. There is no emergent indication for dialysis but close prospective monitoring is essential. -- Await testing results for vasculitis/glomerulonephritis. SIEP is pending. ESR is 7. -- Clinically suspect progression of diabetic nephropathy. 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 Patient is agreeable to starting HD if necessary. Patient's is in agreement. -- Monitor serial PRP. 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 Baseline Cr 1.7 - 2.0 (Nov 2018) (3) Hematuria: -- Urine culture is negative -- Renal US without structural defect -- On Warfarin due to atrial fibrillation. -- Will recheck urine microscopy. If persistent hematuria may need to consider cystoscopy (4) Hypertension: -- Heplock IV -- Continue Metoprolol -- Amlodipine dose increased this morning (5) Pulmonary infiltrate: -- On empiric Ceftriaxone therapy -- CXR 09/18/19 shows improvement in RLL infiltrate (6) Diabetes mellitus with diabetic neuropathy: (7) AF (paroxysmal atrial fibrillation): (8) Hypothyroidism: Subjective Mrs. Pearce was seen & examined in her hospital room this morning. Appetite is decreased. Otherwise, she denies any GI symptoms. She feels well and hopes to be discharged home. BP elevated but asymptomatic. Review of Systems Review of Systems: All systems reviewed & are unremarkable except as noted in HPI & below Physical Exam Constitutional: well developed; no acute distress Eyes: no scleral abnormality and no corneal abnormality ENMT: Mouth: no oral mucosal abnormality and oral mucous membranes not dry Neck: normal visual inspection and trachea midline Respiratory: normal respiratory effort Auscultation: lungs clear to auscultation bilaterally Cardiovascular: Rate/Rhythm: regular rate Heart Sounds: normal S1 and normal S2 Extremities: no edema Musculoskeletal: Extremities: no cyanosis and no clubbing Skin: normal turgor; no lesions Neurologic: Motor/Sensory: no tremor and no asterixis Psychiatric: Orientation: alert and oriented x 3 Results & Data Vital Signs (Past 12 Hours) Vital Signs Temp Pulse Resp BP Pulse Ox 09/20/19 11:46 36.6 C 53 L 20 188/68 H 94 09/20/19 07:56 36.5 C 61 20 179/65 H 91 09/20/19 04:00 167/70 H 09/20/19 01:17 55 L 174/72 H Laboratory Results Laboratory Results - last 24 hr 09/18/19 09/19/19 09/19/19 08:49 10:01 14:05 WBC RBC Hgb Hct MCV MCH MCHC RDW Std Deviation RDW Coeff of Jon Plt Count MPV Sodium Potassium Chloride Carbon Dioxide Anion Gap BUN Creatinine 4.30 H Est Cr Clr Drug Dosing Est GFR ( Amer) Est GFR (Non-Af Amer) BUN/Creatinine Ratio Glucose POC Glucose Calcium Phosphorus Albumin Urine Collection Time 24 Urine Total Volume 800 Urine Creatinine 86.7 Ur Creatinine 24 Hour 0.7 Creatinine Clearance 8.7 L Ur Total Protein 24 Hr Urine Total Protein Hep B Core IgM Ab NON-REACTIVE 09/19/19 09/19/19 09/19/19 14:05 16:48 20:23 WBC RBC Hgb Hct MCV MCH MCHC RDW Std Deviation RDW Coeff of Jon Plt Count MPV Sodium Potassium Chloride Carbon Dioxide Anion Gap BUN Creatinine Est Cr Clr Drug Dosing Est GFR ( Amer) Est GFR (Non-Af Amer) BUN/Creatinine Ratio Glucose POC Glucose 148 H 134 H Calcium Phosphorus Albumin Urine Collection Time Urine Total Volume 800 Urine Creatinine Ur Creatinine 24 Hour Creatinine Clearance Ur Total Protein 24 Hr 1098.4 H Urine Total Protein 137.3 Hep B Core IgM Ab 09/20/19 09/20/19 09/20/19 07:28 09:02 09:02 WBC 9.68 RBC 3.06 L Hgb 9.5 L Hct 28.3 L MCV 92.5 MCH 31.0 MCHC 33.6 RDW Std Deviation 49.8 H RDW Coeff of Jon 14.7 H Plt Count 227 MPV 9.8 Sodium 143 Potassium 4.5 Chloride 115 H Carbon Dioxide 20 L Anion Gap 8.0 BUN 65 H Creatinine 4.56 H* Est Cr Clr Drug Dosing 10.2 Est GFR ( Amer) 9.3 Est GFR (Non-Af Amer) 8.0 BUN/Creatinine Ratio 14.3 Glucose 142 H POC Glucose 84 Calcium 8.8 Phosphorus 4.7 Albumin 3.0 L Urine Collection Time Urine Total Volume Urine Creatinine Ur Creatinine 24 Hour Creatinine Clearance Ur Total Protein 24 Hr Urine Total Protein Hep B Core IgM Ab 09/20/19 11:54 WBC RBC Hgb Hct MCV MCH MCHC RDW Std Deviation RDW Coeff of Jon Plt Count MPV Sodium Potassium Chloride Carbon Dioxide Anion Gap BUN Creatinine Est Cr Clr Drug Dosing Est GFR ( Amer) Est GFR (Non-Af Amer) BUN/Creatinine Ratio Glucose POC Glucose 117 H Calcium Phosphorus Albumin Urine Collection Time Urine Total Volume Urine Creatinine Ur Creatinine 24 Hour Creatinine Clearance Ur Total Protein 24 Hr Urine Total Protein Hep B Core IgM Ab PG Care Time/CCT Total # of Minutes Spent Total Time Spent with Patient: Total time spent is greater than 50% in coordination of care (as documented) at patient's floor/unit and/or counseling patient:
--- NOTE | 2019-09-20 14:48 | Hospitalist Progress Note ---
Date of Service September 20, 2019 Assessment & Plan (1) ROSA (acute kidney injury): Baseline CKD III with cr 1.5 Elevated to 4.1 on admission, unclear how long ago this happened as most recent labs prior to this were from 11/2018, but has been feeling unwell for 2 months Non-oliguric but with LE edema, uncontrolled HTN Renal US without obstruction Sql Server Consultant not improving with IVFs and FeNA >1% all likely consistent with progressive renal failure likely chronic from HTN, DM Sql Server Consultant worsening but stable today at 4.57, lytes ok, HCO3 acidosis at 20, edema worse today, no need for urgent HD but approaching time for need for HD Nephrology has discussed starting HD with pt and family-all agreeable -if milk receiver continues to rise, would get perm cath and start HD as inpatient BPs remain uncontrolled but improved with adding amlodipine -adding hydralazine and lasix bid for HTN Appreciate Nephro consultation -start lasix 20mg bid as per my discussion with Nephro -checking antibodies and workup for GN-pending -repeat UA with persistent microscopic hematuria--> would need cysto as outpt -check 24 hr urine protein, SPEP pending -follow BMP in AM (2) Weakness: Likely secondary to worsening renal failure and PNA, somewhat improved since admission See below for plans PT/OT evals recommend SNF for PT and home for OT Improved and not interested in going to SNF (3) Abnormal finding on urinalysis: UA abnormal for signs of infection as outpt and was started on cipro just prior to admission and grew Proteus pansensitive on cx UA noted for + leuk est, neg nitrites now after taking 1 dose Cipro Changed to rocephin given CXR finding and treatment for PNA Cx now no growth -Rocephin should be adequate (4) Gout: With right hip pain now resolved, not likely from gout Doppler RLE neg for DVT With persistent pain with exertion--> heating pad, tylenol prn (5) Diabetes mellitus with diabetic neuropathy: With hypoglycemia here and has been having it at home too--> then with hyperglycemia since reducing insulin dose Now glucose acceptable Appreciate CDE counseling A1c 9.0 on 09/09, will not recheck -continue Lantus 27 units, SSI (6) Hypertension: With significantly elevated BPS here, now somewhat improved with increasing amlodipine to 10mg daily but remain uncontrolled -continue [id number] daily continue home metoprolol-can't go up on dose due to lower HR -add po hydralazine 25mg tid -add lasix 20mg po bid -may need HD if not improving (7) Anemia: Baseline 13.1, dropped from 10.4 on admission to 9.0 then back up today to 9.5 No obvious bleeding Iron panel consistent with chronic disease -follow CBC and may need Procrit as outpt (8) AF (paroxysmal atrial fibrillation): Has been in sinus rhtyhm here INR 2.7 on day of admission, then up to 3.2 -held Coumadin 5mg on 09/20 -ok to restart coumadin 4mg daily tooday -follow INR in AM -continue metoprolol (9) Hyperlipidemia: -continue statin (10) Hypothyroidism: continue home med TSH WNL on 09/09, will not recheck (11) Pneumonia: CXR with Right sided infiltrate, no cough, no fevers but always has chills, no leukocytosis -treated initially with Rocephin and azithro--> now converted to cefdinir and azithro Repeat CXR 09/18 with improved infiltrate--> question if was actually was from pulm edema? -finish out course of cefdinir and po azithro for total 5 day course-one more day -last day 09/21 (12) DVT prophylaxis: Coumadin Dispo-remain hospitalized for renal failure, possibility of starting HD as inpatient, and uncontrolled BPs Subjective Pt reports swelling in her legs, is making urine. Appetite is not great. No nausea, no chest pain, no SOB. SHe is accepting of the fact that she will likely need HD in the near future but is hoping to not have to do it yet. Denies headache. She did ambulate and do PT exercises yesterday and then had severe right hip and thigh pain last night that did not improve with tylenol or tramadol. She declines anything stronger but does say she uses a heating pad at nighttime Discussed her care with Nephrology Review of Systems Review of Systems: All systems reviewed & are unremarkable except as noted in HPI & below Physical Exam Constitutional: WD/WN, vitals as above Eyes: + anicteric sclerae Neck: trachea midline, no thyromegaly Respiratory: normal respiratory effort, lungs clear to auscultation Cardiovascular: Rate/Rhythm: regular rate and regular rhythm Extremities: + edema (1+ pitting edema legs to knees bilat) Gastrointestinal (Abdomen): normal bowel sounds, soft, nontender, no hepatosplenomegaly Musculoskeletal: Extremities: extremities normal to inspection; no cyanosis and no clubbing Skin: no rashes, warm and dry Neurologic: moves all extremities and awake; no focal motor deficits Psychiatric: A+Ox3, euthymic affect Results & Data Vital Signs (Past 12 Hours) Vital Signs Temp Pulse Resp BP Pulse Ox 09/20/19 11:46 36.6 C 53 L 20 188/68 H 94 09/20/19 07:56 36.5 C 61 20 179/65 H 91 09/20/19 04:00 167/70 H Laboratory Results 09/20/19 09/20/19 09/20/19 Range/Units 11:54 09:02 09:02 WBC 9.68 (4.8-10.8) K/uL RBC 3.06 L (4.2-5.4) M/uL Hgb 9.5 L (12.0-16.0) g/dL Hct 28.3 L (37-47) % MCV 92.5 (80-100) fL MCH 31.0 (25-34) pg MCHC 33.6 (32-36) g/dL RDW Std Deviation 49.8 H (36.4-46.3) fL RDW Coeff of Jon 14.7 H (11.5-14.5) % Plt Count 227 (130-400) K/uL MPV 9.8 (7.4-10.4) fL Sodium 143 (136-145) mmol/L Potassium 4.5 (3.5-5.1) mmol/L Chloride 115 H (98-107) mmol/L Carbon Dioxide 20 L (21-32) mmol/L Anion Gap 8.0 (3-11) BUN 65 H (7-18) mg/dl Creatinine 4.56 H* (0.6-1.2) mg/dl Est Cr Clr Drug Dosing 10.2 ml/min Est GFR ( Amer) 9.3 Est GFR (Non-Af Amer) 8.0 BUN/Creatinine Ratio 14.3 (10-20) Glucose 142 H (70-99) mg/dl POC Glucose 117 H (70-99) Calcium 8.8 (8.5-10.1) mg/dl Phosphorus 4.7 (2.5-4.9) mg/dl Albumin 3.0 L (3.4-5.0) gm/dl Urine Collection Time HOUR Urine Total Volume mL Urine Creatinine mg/dl Ur Creatinine 24 Hour (0.6-2.5) gm/24 HR Creatinine Clearance (88-128) ml/min Ur Total Protein 24 Hr (0-149.1) mg/24 Hr Urine Total Protein mg/dl Hep B Core IgM Ab (NON-REACTIVE) 09/20/19 09/19/19 09/19/19 Range/Units 07:28 20:23 16:48 WBC (4.8-10.8) K/uL RBC (4.2-5.4) M/uL Hgb (12.0-16.0) g/dL Hct (37-47) % MCV (80-100) fL MCH (25-34) pg MCHC (32-36) g/dL RDW Std Deviation (36.4-46.3) fL RDW Coeff of Jon (11.5-14.5) % Plt Count (130-400) K/uL MPV (7.4-10.4) fL Sodium (136-145) mmol/L Potassium (3.5-5.1) mmol/L Chloride (98-107) mmol/L Carbon Dioxide (21-32) mmol/L Anion Gap (3-11) BUN (7-18) mg/dl Creatinine (0.6-1.2) mg/dl Est Cr Clr Drug Dosing ml/min Est GFR ( Amer) Est GFR (Non-Af Amer) BUN/Creatinine Ratio (10-20) Glucose (70-99) mg/dl POC Glucose 84 134 H 148 H (70-99) Calcium (8.5-10.1) mg/dl Phosphorus (2.5-4.9) mg/dl Albumin (3.4-5.0) gm/dl Urine Collection Time HOUR Urine Total Volume mL Urine Creatinine mg/dl Ur Creatinine 24 Hour (0.6-2.5) gm/24 HR Creatinine Clearance (88-128) ml/min Ur Total Protein 24 Hr (0-149.1) mg/24 Hr Urine Total Protein mg/dl Hep B Core IgM Ab (NON-REACTIVE) 09/19/19 09/19/19 09/19/19 Range/Units 14:05 14:05 10:01 WBC (4.8-10.8) K/uL RBC (4.2-5.4) M/uL Hgb (12.0-16.0) g/dL Hct (37-47) % MCV (80-100) fL MCH (25-34) pg MCHC (32-36) g/dL RDW Std Deviation (36.4-46.3) fL RDW Coeff of Jon (11.5-14.5) % Plt Count (130-400) K/uL MPV (7.4-10.4) fL Sodium (136-145) mmol/L Potassium (3.5-5.1) mmol/L Chloride (98-107) mmol/L Carbon Dioxide (21-32) mmol/L Anion Gap (3-11) BUN (7-18) mg/dl Creatinine (0.6-1.2) mg/dl Est Cr Clr Drug Dosing ml/min Est GFR ( Amer) Est GFR (Non-Af Amer) BUN/Creatinine Ratio (10-20) Glucose (70-99) mg/dl POC Glucose (70-99) Calcium (8.5-10.1) mg/dl Phosphorus (2.5-4.9) mg/dl Albumin (3.4-5.0) gm/dl Urine Collection Time 24 HOUR Urine Total Volume 800 800 mL Urine Creatinine 86.7 mg/dl Ur Creatinine 24 Hour 0.7 (0.6-2.5) gm/24 HR Creatinine Clearance 8.7 L (88-128) ml/min Ur Total Protein 24 Hr 1098.4 H (0-149.1) mg/24 Hr Urine Total Protein 137.3 mg/dl Hep B Core IgM Ab NON-REACTIVE (NON-REACTIVE) 09/18/19 Range/Units 08:49 WBC (4.8-10.8) K/uL RBC (4.2-5.4) M/uL Hgb (12.0-16.0) g/dL Hct (37-47) % MCV (80-100) fL MCH (25-34) pg MCHC (32-36) g/dL RDW Std Deviation (36.4-46.3) fL RDW Coeff of Jon (11.5-14.5) % Plt Count (130-400) K/uL MPV (7.4-10.4) fL Sodium (136-145) mmol/L Potassium (3.5-5.1) mmol/L Chloride (98-107) mmol/L Carbon Dioxide (21-32) mmol/L Anion Gap (3-11) BUN (7-18) mg/dl Creatinine 4.30 H (0.6-1.2) mg/dl Est Cr Clr Drug Dosing ml/min Est GFR ( Amer) Est GFR (Non-Af Amer) BUN/Creatinine Ratio (10-20) Glucose (70-99) mg/dl POC Glucose (70-99) Calcium (8.5-10.1) mg/dl Phosphorus (2.5-4.9) mg/dl Albumin (3.4-5.0) gm/dl Urine Collection Time HOUR Urine Total Volume mL Urine Creatinine mg/dl Ur Creatinine 24 Hour (0.6-2.5) gm/24 HR Creatinine Clearance (88-128) ml/min Ur Total Protein 24 Hr (0-149.1) mg/24 Hr Urine Total Protein mg/dl Hep B Core IgM Ab (NON-REACTIVE) PG Care Time/CCT Total # of Minutes Spent Total Time Spent with Patient: Total time spent is greater than 50% in coordination of care (as documented) at patient's floor/unit and/or counseling patient: (1) Anemia Anemia type: unspecified type Qualified Code(s): D64.9 - Anemia, unspecified
[2019-09-20] MEDS: WARFARIN SOD 4 MG TAB PO SCH (15:53)
[2019-09-20] MEDS: INSULIN GLARGINE SOLOSTAR 100 UNITS/ML 3 ML PEN SQ SCH (17:23)
[2019-09-20] MEDS: FUROSEMIDE 20 MG TAB PO SCH (17:24)
[2019-09-20] MEDS: ATORVASTATIN 10 MG TAB PO SCH (20:59)
[2019-09-20] MEDS: GABAPENTIN 300 MG CAP PO SCH (21:00)
[2019-09-20] MEDS: CEFDINIR 300 MG CAP PO SCH (21:03)
[2019-09-21] MEDS: LEVOTHYROXINE SODIUM 112 MCG TABLET PO SCH (06:09)
[2019-09-21 06:26] LABS: INR 2.2 (0.9-1.1); Prothrombin Time 21.5 Seconds (9.0-12.0)
[2019-09-21 07:05] LABS: BUN Creatinine Ratio 13.7 (10-20); Calcium 8.5 mg/dl (8.5-10.1); Creatinine Clr Calc Pharmacy 10.2 ml/min; Est GFR (African American) 9.4; Est GFR (Non-African American) 8.1; Potassium 4.3 mmol/L (3.5-5.1)
[2019-09-21] MEDS: FUROSEMIDE 20 MG TAB PO SCH ×2 (07:38→17:02)
[2019-09-21] MEDS: GABAPENTIN 100 MG CAP PO SCH (07:38)
[2019-09-21] MEDS: AMLODIPINE BESYLATE 5 MG TAB PO SCH (07:38)
[2019-09-21] MEDS: METOPROLOL TARTRATE 25 MG TAB PO SCH ×2 (07:38→21:10)
[2019-09-21] MEDS: AZITHROMYCIN 250 MG TAB PO SCH (07:39)
[2019-09-21] MEDS: ACETAMINOPHEN 325 MG TAB PO PRN (07:41)
[2019-09-21] MEDS: INSULIN ASPART 100 UNITS/ML 3 ML PEN SC SCH ×4 (08:44→21:06)
--- NOTE | 2019-09-21 11:36 | Ultrasound Report ---
DOPPLER ULTRASOUND OF THE RENAL ARTERIES CLINICAL HISTORY: Acute renal insufficiency. Hypertension. COMPARISON STUDY: Abdominal CT dated 12/17/2018. TECHNIQUE: Doppler sonography of the renal arteries was performed to assess renal artery stenosis. Im ages are reviewed in the transverse and longitudinal planes. The examination is significantly degrade d by large body habitus and patient's inability to breath-hold. FINDINGS: The kidneys demonstrate cortical atrophy and are without hydronephrosis. The right kidney measures 11 .1 cm in length and the left kidney measures 9.4 cm in length. On the right, intrarenal arterial resistive indices in the interpolar region measured 0.84. Intrarena l arterial waveforms are normal with brisk upstrokes. The proximal renal artery was not visualized. T he imaged right mid to distal renal artery demonstrates a normal waveform, with velocities measuring up to 49 cm/sec. The right renal vein is patent. On the left, the intrarenal arterial resistive index in the interpolar region measures 0.71. Intrare nal arterial waveforms are normal with brisk upstrokes. The left renal artery is not well-visualized The left renal vein is patent. The abdominal aorta is patent. Velocities within the abdominal aorta measure up to 84 cm/s. IMPRESSION: 1. The kidneys demonstrate cortical atrophy and are without hydronephrosis. 2. There is no sonographic evidence of renal artery stenosis on the right. 3. The left renal artery was not not well visualized and could not be assessed. There was no evidence of renal artery stenosis on the contrast-enhanced abdominal CT scan dated 12/17/2018. Electronically signed by: Capo Goff M.D. 09/21/2019 11:34 AM
--- NOTE | 2019-09-21 12:22 | Nephrology Progress Note ---
Date of Service September 21, 2019 Assessment & Plan (1) ROSA (acute kidney injury): Creatinine 4.2 on admission. This had been 2.0 when last checked as outpatient 12/17/18. No significant change in kidney function despite gentle hydration. Urine sediment w/ hematuria and pyuria. Patient has recently been treated for UTI. Current urine culture is negative and patient has no urinary symptoms. Urine protein has risen from 0.3 to 2.0. Renal US reveals mild cortical thinning but no hydronephrosis, stone, mass or cyst. Patient likely has underlying diabetic nephropathy and hypertensive nephrosclerosis with progression of CKD. There is no emergent indication for dialysis but close prospective monitoring is essential. -- Await testing results for vasculitis/glomerulonephritis. SIEP is pending. ESR is 7. -- Clinically suspect progression of diabetic nephropathy. Discussed p otential need for vascular access creation and SR. CONSULTANT. Patient is agreeable to starting HD if necessary. Patient's is in agreement. -- Monitor serial PRP. 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 Baseline Cr 1.7 - 2.0 (Nov 2018) (3) Hematuria: -- Urine culture is negative -- Renal US without structural defect -- On Warfarin due to atrial fibrillation. -- Will recheck urine microscopy. If persistent hematuria may need to consider cystoscopy (4) Hypertension: -- Heplock IV -- Remains on metoprolol max dose due to bradycardia -- Amlodipine 10 mg daily added -- Continue furosemide 20 mg BID -- Hydralazine switched to 50 mg BID today (5) Pulmonary infiltrate: -- On empiric Ceftriaxone therapy -- CXR 09/18/19 shows improvement in RLL infiltrate (6) Diabetes mellitus with diabetic neuropathy: (7) AF (paroxysmal atrial fibrillation): (8) Hypothyroidism: Subjective Mrs. Pearce was seen & examined in her hospital room this morning. She feels slightly weak but overall well. Appetite improving. BP improved. Review of Systems Review of Systems: All systems reviewed & are unremarkable except as noted in HPI & below Physical Exam Constitutional: well developed; no acute distress Eyes: no scleral abnormality and no corneal abnormality ENMT: Mouth: no oral mucosal abnormality and oral mucous membranes not dry Neck: normal visual inspection and trachea midline Respiratory: normal respiratory effort Auscultation: lungs clear to auscultation bilaterally Cardiovascular: Rate/Rhythm: regular rate Heart Sounds: normal S1 and normal S2 Extremities: no edema Musculoskeletal: Extremities: no cyanosis and no clubbing Skin: normal turgor; no lesions Neurologic: Motor/Sensory: no tremor and no asterixis Psychiatric: Orientation: alert and oriented x 3 Results & Data Vital Signs (Past 12 Hours) Vital Signs Temp Pulse Resp BP Pulse Ox 09/21/19 08:31 37.0 C 56 L 20 158/62 H 95 09/21/19 07:41 63 158/62 H Laboratory Results Laboratory Results - last 24 hr 09/19/19 09/20/19 09/20/19 06:40 17:06 20:25 PT INR Sodium Potassium Chloride Carbon Dioxide Anion Gap BUN Creatinine Est Cr Clr Drug Dosing Est GFR ( Amer) Est GFR (Non-Af Amer) BUN/Creatinine Ratio Glucose POC Glucose 127 H 283 H Calcium Serum Immunofixation SEE NOTE 09/21/19 09/21/19 09/21/19 05:52 05:52 08:01 PT 21.5 H INR 2.2 H Sodium 145 Potassium 4.3 Chloride 116 H Carbon Dioxide 20 L Anion Gap 9.0 BUN 62 H Creatinine 4.54 H* Est Cr Clr Drug Dosing 10.2 Est GFR ( Amer) 9.4 Est GFR (Non-Af Amer) 8.1 BUN/Creatinine Ratio 13.7 Glucose 67 L POC Glucose 83 Calcium 8.5 Serum Immunofixation 09/21/19 11:40 PT INR Sodium Potassium Chloride Carbon Dioxide Anion Gap BUN Creatinine Est Cr Clr Drug Dosing Est GFR ( Amer) Est GFR (Non-Af Amer) BUN/Creatinine Ratio Glucose POC Glucose 91 Calcium Serum Immunofixation PG Care Time/CCT Total # of Minutes Spent Total Time Spent with Patient: Total time spent is greater than 50% in coordination of care (as documented) at patient's floor/unit and/or counseling patient:
--- NOTE | 2019-09-21 16:41 | Hospitalist Progress Note ---
Date of Service September 21, 2019 Assessment & Plan (1) ROSA (acute kidney injury): Baseline CKD III with cr 1.5 Elevated to 4.1 on admission, unclear how long ago this happened as most recent labs prior to this were from 11/2018, but has been feeling unwell for 2 months Non-oliguric but with LE edema, uncontrolled HTN Renal US without obstruction Audio Tape Librarian did not improve at all with IVFs and FeNA >1% all likely consistent with progressive renal failure likely chronic from HTN, DM With proteinuria worsening Audio Tape Librarian again stable today at 4.54, lytes ok, HCO3 acidosis at 20 and stable, edema improved today since starting lasix, no need for urgent HD but approaching time for need for HD Nephrology has discussed starting HD with pt and family-all agreeable -if quick mixer operator continues to rise, would get perm cath and start HD as inpatient--> not needed at this time BPs now much improved with adding amlodipine 10mg daily, increasing lasix to 20mg po bid, and adding hydralazine -continue lasix po bid -increased hydralazine to 50mg po bid -continue amlodipine 10mg daily Appreciate Nephro consultation -checking antibodies and workup for GN-pending -repeat UA with persistent microscopic hematuria--> would need cysto as outpt -24 hr urine protein 1098, CrCL 8.7 -serum MIMI negative -follow BMP in AM -add HCO3 650mg po bid -if quick mixer operator stable and doing well still tomorrow, could dc to home (2) Weakness: Likely secondary to worsening renal failure and PNA, much improved since admission See below for plans PT/OT evals recommend SNF for PT and home for OT Improved and not interested in going to SNF (3) Abnormal finding on urinalysis: UA abnormal for signs of infection as outpt and was started on cipro just prior to admission and grew Proteus pansensitive on cx Repeat UA noted for + leuk est, neg nitrites now after taking 1 dose Cipro Changed to rocephin given CXR finding and treatment for PNA Cx now no growth -treatment completed (4) Gout: With right hip pain now resolved, not likely from gout Doppler RLE neg for DVT With persistent pain with exertion--> heating pad, tylenol prn and now pain much improved (5) Diabetes mellitus with diabetic neuropathy: With hypoglycemia here and has been having it at home too--> then with hyperglycemia since reducing insulin dose Now glucose low normal again Appreciate CDE counseling A1c 9.0 on 09/09, will not recheck -decrease Lantus to 26 units, loosen SSI (6) Hypertension: With significantly elevated BPS here, now greatly improved with increasing amlodipine to 10mg daily, adding hydralazine and increasing lasix as above continue home metoprolol-can't go up on dose due to lower HR -may need HD if not improving (7) Anemia: Baseline 13.1, dropped from 10.4 on admission to 9.0 then back up to 9.5 No obvious bleeding Iron panel consistent with chronic disease -follow CBC and may need Procrit as outpt (8) AF (paroxysmal atrial fibrillation): Has been in sinus rhythm here INR 2.7 on day of admission, then up to 3.2 likely high secondary to antibiotic use -held Coumadin 5mg on 09/20 -restarted coumadin 4mg daily on 09/20 INR now 2.2 -follow INR in AM -continue metoprolol for rate control (9) Hyperlipidemia: -continue statin (10) Hypothyroidism: continue home med TSH WNL on 09/09, will not recheck (11) Pneumonia: CXR with Right sided infiltrate, no cough, no fevers but always has chills, no leukocytosis -treated initially with Rocephin and azithro--> then converted to cefdinir and azithro Repeat CXR 09/18 with improved infiltrate--> question if was actually was from pulm edema? -finish out course of cefdinir and po azithro for total 5 day course -last day 09/21 and then will dc (12) DVT prophylaxis: Coumadin Dispo-remain hospitalized for renal failure, possibility of starting HD as inpatient, and uncontrolled BPs, however is stable and can possibly go home tomorrow Subjective Pt feeling "so good I could fly right out of here." Says the heating pad did wonders for her right LE pain. Denies CP or SOB. Is kayleigh po, no nausea. Feels guilty for taking up a bed in the hospital because she feels so good. No abd pain, no trouble urinating, i smaking plenty of urine. BPs are much improved. Review of Systems Review of Systems: All systems reviewed & are unremarkable except as noted in HPI & below Physical Exam Constitutional: WD/WN, vitals as above Eyes: + anicteric sclerae Neck: trachea midline, no thyromegaly Respiratory: normal respiratory effort, lungs clear to auscultation Cardiovascular: Rate/Rhythm: regular rate and regular rhythm Extremities: + edema (1+ pitting edema legs to knees bilat) Gastrointestinal (Abdomen): normal bowel sounds, soft, nontender, no hepatosplenomegaly Musculoskeletal: Extremities: extremities normal to inspection; no cyanosis and no clubbing Skin: no rashes, warm and dry Neurologic: moves all extremities and awake; no focal motor deficits Psychiatric: A+Ox3, euthymic affect Results & Data Vital Signs (Past 12 Hours) Vital Signs Temp Pulse Resp BP Pulse Ox 09/21/19 16:30 36.8 C 54 L 22 153/79 H 95 09/21/19 08:31 37.0 C 56 L 20 158/62 H 95 09/21/19 07:41 63 158/62 H Laboratory Results 09/21/19 09/21/19 09/21/19 Range/Units 16:36 11:40 08:01 PT (9.0-12.0) Seconds INR (0.9-1.1) Sodium (136-145) mmol/L Potassium (3.5-5.1) mmol/L Chloride (98-107) mmol/L Carbon Dioxide (21-32) mmol/L Anion Gap (3-11) BUN (7-18) mg/dl Creatinine (0.6-1.2) mg/dl Est Cr Clr Drug Dosing ml/min Est GFR ( Amer) Est GFR (Non-Af Amer) BUN/Creatinine Ratio (10-20) Glucose (70-99) mg/dl POC Glucose 127 H 91 83 (70-99) Calcium (8.5-10.1) mg/dl Serum Immunofixation 09/21/19 09/21/19 09/20/19 Range/Units 05:52 05:52 20:25 PT 21.5 H (9.0-12.0) Seconds INR 2.2 H (0.9-1.1) Sodium 145 (136-145) mmol/L Potassium 4.3 (3.5-5.1) mmol/L Chloride 116 H (98-107) mmol/L Carbon Dioxide 20 L (21-32) mmol/L Anion Gap 9.0 (3-11) BUN 62 H (7-18) mg/dl Creatinine 4.54 H* (0.6-1.2) mg/dl Est Cr Clr Drug Dosing 10.2 ml/min Est GFR ( Amer) 9.4 Est GFR (Non-Af Amer) 8.1 BUN/Creatinine Ratio 13.7 (10-20) Glucose 67 L (70-99) mg/dl POC Glucose 283 H (70-99) Calcium 8.5 (8.5-10.1) mg/dl Serum Immunofixation 09/20/19 09/19/19 Range/Units 17:06 06:40 PT (9.0-12.0) Seconds INR (0.9-1.1) Sodium (136-145) mmol/L Potassium (3.5-5.1) mmol/L Chloride (98-107) mmol/L Carbon Dioxide (21-32) mmol/L Anion Gap (3-11) BUN (7-18) mg/dl Creatinine (0.6-1.2) mg/dl Est Cr Clr Drug Dosing ml/min Est GFR ( Amer) Est GFR (Non-Af Amer) BUN/Creatinine Ratio (10-20) Glucose (70-99) mg/dl POC Glucose 127 H (70-99) Calcium (8.5-10.1) mg/dl Serum Immunofixation SEE NOTE PG Care Time/CCT Total # of Minutes Spent Total Time Spent with Patient: Total time spent is greater than 50% in coordination of care (as documented) at patient's floor/unit and/or counseling patient: (1) Anemia Anemia type: unspecified type Qualified Code(s): D64.9 - Anemia, unspecified
[2019-09-21] MEDS: WARFARIN SOD 4 MG TAB PO SCH (16:57)
[2019-09-21] MEDS ORDERED: INSULIN GLARGINE SOLOSTAR 100 UNITS/ML 3 ML PEN SQ SCH (17:00)
[2019-09-21] MEDS: HydrALAZINE TAB 50 MG TAB PO SCH (17:01)
[2019-09-21] MEDS: INSULIN GLARGINE SOLOSTAR 100 UNITS/ML 3 ML PEN SQ SCH (17:36)
[2019-09-21] MEDS: ATORVASTATIN 10 MG TAB PO SCH (21:09)
[2019-09-21] MEDS: GABAPENTIN 300 MG CAP PO SCH (21:12)
[2019-09-21] MEDS: CEFDINIR 300 MG CAP PO SCH (21:12)
[2019-09-21] MEDS: SODIUM BICARBONATE 650 MG TAB PO SCH (21:13)
[2019-09-22] MEDS: LEVOTHYROXINE SODIUM 112 MCG TABLET PO SCH (06:36)
[2019-09-22 07:10] LABS: INR 2.1 (0.9-1.1); Prothrombin Time 20.5 Seconds (9.0-12.0)
[2019-09-22 07:59] LABS: BUN Creatinine Ratio 14.6 (10-20); Calcium 8.3 mg/dl (8.5-10.1); Creatinine Clr Calc Pharmacy 9.9 ml/min; Est GFR (African American) 8.9; Est GFR (Non-African American) 7.7; Potassium 4.1 mmol/L (3.5-5.1)
[2019-09-22] MEDS: CARBOHYDRATES FOR HYPOGLYCEMIA PO PRN ×2 (08:05→08:19)
[2019-09-22] MEDS: FUROSEMIDE 20 MG TAB PO SCH ×2 (08:20→16:50)
[2019-09-22] MEDS: METOPROLOL TARTRATE 25 MG TAB PO SCH ×2 (08:20→20:57)
[2019-09-22] MEDS: AMLODIPINE BESYLATE 5 MG TAB PO SCH (08:21)
[2019-09-22] MEDS: GABAPENTIN 100 MG CAP PO SCH (08:21)
[2019-09-22] MEDS: SODIUM BICARBONATE 650 MG TAB PO SCH ×2 (08:21→20:58)
[2019-09-22] MEDS: HydrALAZINE TAB 50 MG TAB PO SCH ×2 (08:21→16:50)
[2019-09-22] MEDS: INSULIN ASPART 100 UNITS/ML 3 ML PEN SC SCH ×4 (08:35→21:06)
--- NOTE | 2019-09-22 11:53 | Nephrology Progress Note ---
Date of Service September 22, 2019 Assessment & Plan (1) ROSA (acute kidney injury): Creatinine 4.2 on admission. This had been 2.0 when last checked as outpatient 12/17/18. No significant change in kidney function despite gentle hydration. Urine sediment w/ microscopic hematuria. This will be repeated today. Patient has recently been treated for UTI. Current urine culture is negative and patient has no urinary symptoms. Urine protein excretion 1 g. Renal US reveals mild cortical thinning but no hydronephrosis, stone, mass or cyst. Patient likely has underlying diabetic nephropathy and hypertensive nephrosclerosis with progression of CKD. There is no emergent indication for dialysis but close prospective monitoring is essential. -- Await testing results for vasculitis/glomerulonephritis. SIEP is pending. ESR is 7. -- Clinically suspect progression of diabetic nephropathy. 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 Patient is agreeable to starting HD if necessary. Patient's is in agreement. -- Repeat metabolic profile tomorrow AM -- No emergent indication for dialysis at this time -- Medications are appropriate for kidney function -- Document I/O (2) Chronic kidney disease, stage III (moderate): -- CKD due to diabetic nephropathy and hypertensive nephrosclerosis. Baseline Cr 1.7 - 2.0 (Nov 2018) (3) Hematuria: -- Urine culture is negative -- Renal US without structural defect -- On Warfarin due to atrial fibrillation. -- Will recheck urine microscopy. If persistent hematuria may need to consider cystoscopy as outpatient (4) Hypertension: -- Heplock IV -- Remains on metoprolol max dose due to bradycardia -- Amlodipine 10 mg daily added -- Continue furosemide 20 mg BID -- Hydralazine switched to 100 mg BID today (5) Pulmonary infiltrate: -- On empiric Ceftriaxone therapy -- CXR 09/18/19 shows improvement in RLL infiltrate (6) Diabetes mellitus with diabetic neuropathy: (7) AF (paroxysmal atrial fibrillation): (8) Hypothyroidism: Subjective Hypoglycemic this AM. Developed some pain and tenderness in the outside of her right hip. Similar symptoms. Breathing comfortably. Good urine output. No lightheadedness or dizziness. No chest pain or palpitations. Appetite is good. Review of Systems Review of Systems: All systems reviewed & are unremarkable except as noted in HPI & below Physical Exam Constitutional: well developed; no acute distress Eyes: no scleral abnormality and no corneal abnormality ENMT: Mouth: no oral mucosal abnormality and oral mucous membranes not dry Neck: normal visual inspection and trachea midline Respiratory: normal respiratory effort Auscultation: lungs clear to auscultation bilaterally Cardiovascular: Rate/Rhythm: regular rate Heart Sounds: normal S1 and aditya l S2 Extremities: no edema Musculoskeletal: Extremities: no cyanosis and no clubbing Skin: normal turgor; no lesions Neurologic: Motor/Sensory: no tremor and no asterixis Psychiatric: Orientation: alert and oriented x 3 Results & Data Vital Signs (Past 12 Hours) Vital Signs Temp Pulse Resp BP Pulse Ox 09/22/19 08:20 179/63 H 09/22/19 08:18 36.8 C 58 L 20 95 09/22/19 00:00 37.0 C 54 L 20 160/75 H 96 Laboratory Results Laboratory Results - last 24 hr 09/21/19 09/21/19 09/22/19 16:36 20:39 06:45 PT 20.5 H INR 2.1 H Sodium Potassium Chloride Carbon Dioxide Anion Gap BUN Creatinine Est Cr Clr Drug Dosing Est GFR ( Amer) Est GFR (Non-Af Amer) BUN/Creatinine Ratio Glucose POC Glucose 127 H 197 H Calcium 09/22/19 09/22/19 09/22/19 06:45 08:00 08:13 PT INR Sodium 145 Potassium 4.1 Chloride 116 H Carbon Dioxide 23 Anion Gap 6.0 BUN 70 H Creatinine 4.71 H* Est Cr Clr Drug Dosing 9.9 Est GFR ( Amer) 8.9 Est GFR (Non-Af Amer) 7.7 BUN/Creatinine Ratio 14.6 Glucose 50 L* POC Glucose 57 L* 69 L* Calcium 8.3 L 09/22/19 08:31 PT INR Sodium Potassium Chloride Carbon Dioxide Anion Gap BUN Creatinine Est Cr Clr Drug Dosing Est GFR ( Amer) Est GFR (Non-Af Amer) BUN/Creatinine Ratio Glucose POC Glucose 106 H Calcium PG Care Time/CCT Total # of Minutes Spent Total Time Spent with Patient: Total time spent is greater than 50% in coordination of care (as documented) at patient's floor/unit and/or counseling patient:
[2019-09-22] MEDS: WARFARIN SOD 4 MG TAB PO SCH (16:50)
[2019-09-22] MEDS: INSULIN GLARGINE SOLOSTAR 100 UNITS/ML 3 ML PEN SQ SCH (17:21)
--- NOTE | 2019-09-22 18:46 | Hospitalist Progress Note ---
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 Tripathi, she most likely does not need HD this admission Nephrology has discussed starting HD with pt and family-all agreeable for in the future when needed BPs still high/uncontrolled despite adding amlodipine 10mg daily, increasing lasix to 20mg po bid, and adding hydralazine -continue lasix 20mg po bid -increased hydralazine again today to 100mg po bid -continue amlodipine 10mg daily Appreciate Nephro consultation -checking antibodies and workup for GN-pending -repeat UA with persistent microscopic hematuria--> would need cysto as outpt -24 hr urine protein 1098, CrCL 8.7 -serum MIMI negative -follow BMP in AM -added HCO3 650mg po bid If BPs not accelerated, 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, lytes ok, hypoglycemia improved, and if patient feeling well, plan is for discharge to home on Monday-would discuss with Nephrology prior to discharge -plan would be then for BMP on Monday 09/24 after discharge prior to the holiday (2) Weakness: Likely secondary to worsening renal failure and PNA, much improved since admission See below for plans PT/OT evals recommend SNF for PT and home for OT Improved and not interested in going to SNF (3) Abnormal finding on urinalysis: UA abnormal for signs of infection as outpt and was started on cipro just prior to admission and grew Proteus pansensitive on cx Repeat UA noted for + leuk est, neg nitrites now after taking 1 dose Cipro Changed to rocephin given CXR finding and treatment for PNA Cx now no growth -treatment completed (4) Gout: With right hip pain now resolved, not likely from gout Doppler RLE neg for DVT With persistent pain with exertion--> heating pad, tylenol prn and now pain much improved (5) Diabetes mellitus with diabetic neuropathy: With hypoglycemia here and has been having it at home too--> then with hyperglycemia since reducing insulin dose Now glucose low again Appreciate CDE counseling A1c 9.0 on 09/09, will not recheck -decrease Lantus again to 22 units, loosen SSI again -add qhs snack (6) Hypertension: With significantly elevated BPS here, somewhat improved but remain high even after adding amlodipine 10mg daily, adding hydralazine and increasing lasix as above continue home metoprolol-can't go up on dose due to lower HR -may need HD if not improving -continue other meds as above -increasing hydralazine today (7) Anemia: Baseline 13.1, dropped from 10.4 on admission to 9.0 then back up to 9.5 No obvious bleeding Iron panel consistent with chronic disease -follow CBC and may need Procrit as outpt (8) AF (paroxysmal atrial fibrillation): Has been in sinus rhythm here INR 2.7 on day of admission, then up to 3.2 likely high secondary to antibiotic use -held Coumadin 5mg on 09/20 -restarted coumadin 4mg daily on 09/20, but may need to increase the dose again now that antibiotics are completed INR now 2.1 -follow INR in AM -continue metoprolol for rate control (9) Hyperlipidemia: -continue statin (10) Hypothyroidism: continue home med TSH WNL on 09/09, will not recheck (11) Pneumonia: CXR with Right sided infiltrate, no cough, no fevers but always has chills, no leukocytosis -treated initially with Rocephin and azithro--> then converted to cefdinir and azithro Repeat CXR 09/18 with improved infiltrate--> question if was actually was from pulm edema? -finished out course of cefdinir and po azithro for total 5 day course (12) DVT prophylaxis: Coumadin Dispo-remain hospitalized for renal failure, possibility of starting HD as inpatient, and uncontrolled BPs, however is stable and can possibly go home on Monday if ok with Nephrology Subjective Pt woke up very confused this AM, remembers that she had no idea where she was or what was going on. Her glucose was only 50 and she drank orange juice and then felt better, glucose came up. BPs high today and hydralazine increased again by Nephro. Still making urine and making more she thinks now than before. She is very anxious to go home hopefully tomorrow if doing better. She is very hesitant to be started on dialysis at this point. I discussed her care with Dr. Tripathi. Review of Systems Review of Systems: All systems reviewed & are unremarkable except as noted in HPI & below Physical Exam Constitutional: WD/WN, vitals as above Eyes: + anicteric sclerae Neck: trachea midline, no thyromegaly Respiratory: normal respiratory effort, lungs clear to auscultation Cardiovascular: Rate/Rhythm: regular rate and regular rhythm Extremities: + edema (trace pitting edema legs to knees bilat, improved) Gastrointestinal (Abdomen): normal bowel sounds, soft, nontender, no hepatosplenomegaly Musculoskeletal: Extremities: extremities normal to inspection; no cyanosis and no clubbing Skin: no rashes, warm and dry Neurologic: moves all extremities and awake; no focal motor deficits Psychiatric: A+Ox3, euthymic affect Results & Data Vital Signs (Past 12 Hours) Vital Signs Temp Pulse Resp BP Pulse Ox 09/22/19 15:46 36.9 C 53 L 18 165/73 H 94 09/22/19 08:20 179/63 H 09/22/19 08:18 36.8 C 58 L 20 95 Laboratory Results 09/22/19 09/22/19 09/22/19 Range/Units 16:33 12:09 08:31 PT (9.0-12.0) Seconds INR (0.9-1.1) Sodium (136-145) mmol/L Potassium (3.5-5.1) mmol/L Chloride (98-107) mmol/L Carbon Dioxide (21-32) mmol/L Anion Gap (3-11) BUN (7-18) mg/dl Creatinine (0.6-1.2) mg/dl Est Cr Clr Drug Dosing ml/min Est GFR ( Amer) Est GFR (Non-Af Amer) BUN/Creatinine Ratio (10-20) Glucose (70-99) mg/dl POC Glucose 109 H 136 H 106 H (70-99) Calcium (8.5-10.1) mg/dl 09/22/19 09/22/19 09/22/19 Range/Units 08:13 08:00 06:45 PT (9.0-12.0) Seconds INR (0.9-1.1) Sodium 145 (136-145) mmol/L Potassium 4.1 (3.5-5.1) mmol/L Chloride 116 H (98-107) mmol/L Carbon Dioxide 23 (21-32) mmol/L Anion Gap 6.0 (3-11) BUN 70 H (7-18) mg/dl Creatinine 4.71 H* (0.6-1.2) mg/dl Est Cr Clr Drug Dosing 9.9 ml/min Est GFR ( Amer) 8.9 Est GFR (Non-Af Amer) 7.7 BUN/Creatinine Ratio 14.6 (10-20) Glucose 50 L* (70-99) mg/dl POC Glucose 69 L* 57 L* (70-99) Calcium 8.3 L (8.5-10.1) mg/dl 09/22/19 09/21/19 Range/Units 06:45 20:39 PT 20.5 H (9.0-12.0) Seconds INR 2.1 H (0.9-1.1) Sodium (136-145) mmol/L Potassium (3.5-5.1) mmol/L Chloride (98-107) mmol/L Carbon Dioxide (21-32) mmol/L Anion Gap (3-11) BUN (7-18) mg/dl Creatinine (0.6-1.2) mg/dl Est Cr Clr Drug Dosing ml/min Est GFR ( Amer) Est GFR (Non-Af Amer) BUN/Creatinine Ratio (10-20) Glucose (70-99) mg/dl POC Glucose 197 H (70-99) Calcium (8.5-10.1) mg/dl PG Care Time/CCT Total # of Minutes Spent Total Time Spent with Patient: Total time spent is greater than 50% in coordination of care (as documented) at patient's floor/unit and/or counseling patient: (1) Anemia Anemia type: unspecified type Qualified Code(s): D64.9 - Anemia, unspecified
[2019-09-22] MEDS: ATORVASTATIN 10 MG TAB PO SCH (20:57)
[2019-09-22] MEDS: GABAPENTIN 300 MG CAP PO SCH (20:57)
[2019-09-22 21:24] LABS: Appearance Urine Clear (Clear); Bacteria Urine Automated Negative (Negative); Bilirubin Urine Negative (Negative); Blood Urine 2+ (Negative); Color Urine Yellow; Glucose Urine UA Negative (Negative); Ketones Urine Negative (Negative); Leukocyte Esterase Urine Trace (Negative); Nitrite Urine Negative (Negative); Protein Urine 2+ (Negative); Urobilinogen Urine Negative (Negative)
[2019-09-23] MEDS: LEVOTHYROXINE SODIUM 112 MCG TABLET PO SCH (06:03)
[2019-09-23] MEDS: ACETAMINOPHEN 325 MG TAB PO PRN (06:03)
[2019-09-23 06:40] LABS: Basophils # (auto) 0.04 K/uL (0-0.2); Basophils % (auto) 0.4 %; Eosinophils % (auto) 4.5 %; Hematocrit (blood only) 25.7 % (37-47); Hemoglobin 8.6 g/dL (12.0-16.0); Immature Granulocytes # (auto) 0.03 K/uL (0.00-0.02); Immature Granulocytes % (auto) 0.3 %; Lymphocytes # (auto) 2.27 K/uL (1.2-3.4); Lymphocytes % (auto) 25.5 %; Mean Corpuscular Hemoglobin 31.4 pg (25-34); Mean Corpuscular Hgb Conc 33.5 g/dL (32-36); Mean Corpuscular Volume 93.8 fL (80-100); Mean Platelet Volume 10.3 fL (7.4-10.4); Monocytes # (auto) 1.11 K/uL (0.11-0.59); Monocytes % (auto) 12.5 %; Neutrophils # (auto) 5.06 K/uL (1.4-6.5); Neutrophils % (auto) 56.8 %; Platelet Count 250 K/uL (130-400); RDW Coefficient of Variation 14.9 % (11.5-14.5); Red Blood Count 2.74 M/uL (4.2-5.4); White Blood Count 8.91 K/uL (4.8-10.8)
[2019-09-23 07:31] LABS: BUN Creatinine Ratio 14.9 (10-20); Calcium 8.7 mg/dl (8.5-10.1); Creatinine Clr Calc Pharmacy 9.3 ml/min; Est GFR (African American) 8.3; Est GFR (Non-African American) 7.1; Potassium 4.2 mmol/L (3.5-5.1)
[2019-09-23] MEDS: METOPROLOL TARTRATE 25 MG TAB PO SCH ×2 (08:13→20:22)
[2019-09-23] MEDS: FUROSEMIDE 20 MG TAB PO SCH ×2 (08:14→18:05)
[2019-09-23] MEDS: SODIUM BICARBONATE 650 MG TAB PO SCH ×2 (08:14→20:23)
[2019-09-23] MEDS: HydrALAZINE TAB 50 MG TAB PO SCH ×2 (08:14→18:05)
[2019-09-23] MEDS: AMLODIPINE BESYLATE 5 MG TAB PO SCH (08:15)
[2019-09-23] MEDS: INSULIN ASPART 100 UNITS/ML 3 ML PEN SC SCH ×4 (08:16→20:31)
--- NOTE | 2019-09-23 11:52 | Hospitalist Progress Note ---
Date of Service September 23, 2019 Assessment & Plan (1) ROSA (acute kidney injury): Baseline CKD III with cr 1.5 Elevated to 4.1 on admission, unclear how long ago this happened as most recent labs prior to this were from 11/2018, but has been feeling unwell for 2 months Non-oliguric but with LE edema, uncontrolled HTN Renal US without obstruction [employer] did not improve at all with IVFs and FeNA >1% all likely consistent with progressive renal failure likely chronic from HTN, DM With proteinuria worsening from previous Cr worsened to 5.0 today, still with edema and hypertension d/w Dr. Nettles, plan for HD this admission, will place HD catheter tomorrow will plan for outpatient HD set up BPs better today with amlodipine 10mg daily, increasing lasix to 20mg po bid, and adding hydralazine -continue lasix 20mg po bid -continue hydralazine 100mg po bid -continue amlodipine 10mg daily Appreciate Nephro consultation -checking antibodies and workup for GN-pending -repeat UA with persistent microscopic hematuria--> would need cysto as outpt -24 hr urine protein 1098, CrCL 8.7 -serum MIMI negative -continue HCO3 650mg po bid (2) Weakness: Likely secondary to worsening renal failure and PNA, much improved since admission See below for plans PT/OT evals Improved and not interested in going to SNF will go home once HD arranged weakness improved (3) Abnormal finding on urinalysis: UA abnormal for signs of infection as outpt and was started on cipro just prior to admission and grew Proteus pansensitive on cx Repeat UA noted for + leuk est, neg nitrites now after taking 1 dose Cipro Changed to rocephin given CXR finding and treatment for PNA Cx now no growth -treatment completed (4) Gout: With right hip pain now resolved, not likely from gout Doppler RLE neg for DVT With persistent pain with exertion--> heating pad, tylenol prn and now pain much improved patient able to ambulate better today (5) Diabetes mellitus with diabetic neuropathy: With hypoglycemia here and has been having it at home too--> then with hyperglycemia since reducing insulin dose Now glucose low again Appreciate CDE counseling A1c 9.0 on 09/09, will not recheck -decreased Lantus again to 22 units, loosen SSI -add qhs snack sugars not quite as low on 09/23, in the 70's, no symptoms up to 105 later in the morning will lower Lantus a little further (6) Hypertension: BP improved with Norvasc 10mg, Hydralazine 100mg BID and Lasix likely that removing some volume with HD will help (7) Anemia: Baseline 13.1, dropped from 10.4 on admission to 9.0 then back up to 9.5 No obvious bleeding Iron panel consistent with chronic disease -follow CBC and may need Procrit as outpt Hb 8.6 today, stable (8) AF (paroxysmal atrial fibrillation): Has been in sinus rhythm here INR 2.7 on day of admission, then up to 3.2 likely high secondary to antibiotic use -held Coumadin 5mg on 09/20 -restarted coumadin 4mg daily on 09/20, but may need to increase the dose again now that antibiotics are completed INR 2.1 on 09/22, no Coumadin today with plans for HD catheter check INR in the morning -continue metoprolol for rate control (9) Hyperlipidemia: -continue statin (10) Hypothyroidism: continue home med TSH WNL on 09/09, will not recheck (11) Pneumonia: CXR with Right sided infiltrate, no cough, no fevers but always has chills, no leukocytosis -treated initially with Rocephin and azithro--> then converted to cefdinir and azithro Repeat CXR 09/18 with improved infiltrate--> question if was actually was from pulm edema? -finished out course of cefdinir and po azithro for total 5 day course (12) DVT prophylaxis: Coumadin Subjective Cr up to 5.0 from 4.7, electrolytes stable discussed with Dr. Nettles, she plans to start HD while patient is here discussed this with patient and her daughter, she is in agreement with starting HD plan for HD catheter tomorrow with vascular patient not eating well, minimal appetite, weakness and fatigue associated with worsening renal function no dyspnea, no chest pain, has some mild edema in legs she is anxious to go home once HD initiated Review of Systems Review of Systems: All systems reviewed & are unremarkable except as noted in HPI & below Constitutional: + fatigue and + weakness; no fever Respiratory: + dyspnea on exertion; no cough, no dyspnea and no wheezing Cardiovascular: + edema; no chest pain, no palpitations and no syncope Gastrointestinal: + early satiety; no abdominal pain, no nausea, no vomiting, no constipation and no diarrhea/loose stools Physical Exam Constitutional: WD/WN, vitals as above Eyes: PERRL, conjunctivae normal, anicteric sclerae ENMT: external ear and nose normal, oropharynx normal Neck: trachea midline, no thyromegaly Respiratory: normal respiratory effort, lungs clear to auscultation Cardiovascular: Rate/Rhythm: regular rate and regular rhythm Heart Sounds: normal S1 and normal S2; no murmur Vessels: no JVD Extremities: normal capillary refill and + edema Gastrointestinal (Abdomen): normal bowel sounds, soft, nontender, no hepatosplenomegaly Musculoskeletal: no cyanosis or clubbing, extremities motor strength 5/5 Skin: no rashes, warm and dry Neurologic: patellar DTR's 2+ bilat, sensation intact and PERRL, EOMI, accommodation nl, no face palsy, no dysarthria Psychiatric: A+Ox3, euthymic affect Lymphatic: no cervical or axillary lymphadenopathy Results & Data Vital Signs (Past 12 Hours) Vital Signs Temp Pulse Resp BP Pulse Ox 09/23/19 08:04 36.6 C 74 20 115/78 99 09/23/19 07:35 36.6 C 74 20 115/78 99 09/23/19 05:01 36.8 C 51 L 18 173/73 H 94 09/22/19 23:59 37.0 C 60 20 164/73 H 94 Laboratory Results Laboratory Results - last 24 hr 09/22/19 09/22/19 09/22/19 16:33 21:05 21:10 WBC RBC Hgb Hct MCV MCH MCHC RDW Std Deviation RDW Coeff of Jon Plt Count MPV Immature Gran % (Auto) Neut % (Auto) Lymph % (Auto) Davison % (Auto) Eos % (Auto) Baso % (Auto) Immature Gran # (Auto) Neut # (Auto) Lymph # (Auto) Davison # (Auto) Eos # (Auto) Baso # (Auto) Sodium Potassium Chloride Carbon Dioxide Anion Gap BUN Creatinine Est Cr Clr Drug Dosing Est GFR ( Amer) Est GFR (Non-Af Amer) BUN/Creatinine Ratio Glucose POC Glucose 109 H 161 H Calcium Phosphorus Magnesium Urine Color Yellow Urine Appearance Clear Urine pH 5.0 Ur Specific [place] 1.020 Urine Protein 2+ H Urine Glucose (UA) Negative Urine Ketones Negative Urine Blood 2+ H Urine Nitrite Negative Urine Bilirubin Negative Urine Urobilinogen Negative Ur Leukocyte Esterase Trace H Urine WBC (Auto) 10-30 H Urine RBC (Auto) 10-30 H U Hyaline Cast (Auto) 1-5 U Epithel Cells (Auto) 5-10 H Urine Bacteria (Auto) Negative Urine Yeast Not Reportable 09/23/19 09/23/19 09/23/19 03:53 06:12 06:12 WBC 8.91 RBC 2.74 L Hgb 8.6 L Hct 25.7 L MCV 93.8 MCH 31.4 MCHC 33.5 RDW Std Deviation 51.0 H RDW Coeff of Jon 14.9 H Plt Count 250 MPV 10.3 Immature Gran % (Auto) 0.3 Neut % (Auto) 56.8 Lymph % (Auto) 25.5 Davison % (Auto) 12.5 Eos % (Auto) 4.5 Baso % (Auto) 0.4 Immature Gran # (Auto) 0.03 H Neut # (Auto) 5.06 Lymph # (Auto) 2.27 Davison # (Auto) 1.11 H Eos # (Auto) 0.40 Baso # (Auto) 0.04 Sodium 144 Potassium 4.2 Chloride 114 H Carbon Dioxide 21 Anion Gap 9.0 BUN 73 H Creatinine 5.02 H* D Est Cr Clr Drug Dosing 9.3 Est GFR ( Amer) 8.3 Est GFR (Non-Af Amer) 7.1 BUN/Creatinine Ratio 14.9 Glucose 71 POC Glucose 76 Calcium 8.7 Phosphorus 5.0 H Magnesium 2.0 Urine Color Urine Appearance Urine pH Ur Specific [place] Urine Protein Urine Glucose (UA) Urine Ketones Urine Blood Urine Nitrite Urine Bilirubin Urine Urobilinogen Ur Leukocyte Esterase Urine WBC (Auto) Urine RBC (Auto) U Hyaline Cast (Auto) U Epithel Cells (Auto) Urine Bacteria (Auto) Urine Yeast 09/23/19 09/23/19 07:59 12:15 WBC RBC Hgb Hct MCV MCH MCHC RDW Std Deviation RDW Coeff of Jon Plt Count MPV Immature Gran % (Auto) Neut % (Auto) Lymph % (Auto) Davison % (Auto) Eos % (Auto) Baso % (Auto) Immature Gran # (Auto) Neut # (Auto) Lymph # (Auto) Davison # (Auto) Eos # (Auto) Baso # (Auto) Sodium Potassium Chloride Carbon Dioxide Anion Gap BUN Creatinine Est Cr Clr Drug Dosing Est GFR ( Amer) Est GFR (Non-Af Amer) BUN/Creatinine Ratio Glucose POC Glucose 70 105 H Calcium Phosphorus Magnesium Urine Color Urine Appearance Urine pH Ur Specific [place] Urine Protein Urine Glucose (UA) Urine Ketones Urine Blood Urine Nitrite Urine Bilirubin Urine Urobilinogen Ur Leukocyte Esterase Urine WBC (Auto) Urine RBC (Auto) U Hyaline Cast (Auto) U Epithel Cells (Auto) Urine Bacteria (Auto) Urine Yeast Medications Administered Current Inpatient Medications Acetaminophen (Tylenol) 650 mg PO Q4H PRN PRN Reason: Pain or Fever Stop: 10/16/19 21:30 Last Admin: 09/23/19 06:03 Dose: 650 mg Documented by: Amlodipine Besylate (Norvasc) 10 mg PO QAM [facility] Stop: 10/19/19 08:59 Last Admin: 09/23/19 08:15 Dose: 10 mg Documented by: Atorvastatin Calcium (Lipitor) 10 mg PO HS [facility] Stop: 10/18/19 20:59 Last Admin: 09/22/19 20:57 Dose: 10 mg Documented by: Calcitriol (Rocaltrol) 0.25 mcg PO MoWeFr@0900 [facility] Stop: 10/23/19 12:59 Last Admin: 09/23/19 13:31 Dose: 0.25 mcg Documented by: Calcium Carbonate (Tums) 500 mg PO TIDM REYMUNDO Stop: 10/23/19 16:59 Dextrose (Dextrose 50%) 25 - 50 ml IV UD PRN; Protocol PRN Reason: Hypoglycemia Protocol Stop: 10/16/19 21:30 Furosemide (Lasix) 20 mg PO BID17 REYMUNDO Stop: 10/20/19 16:59 Last Admin: 09/23/19 08:14 Dose: 20 mg Documented by: Gabapentin (Neurontin) 300 mg PO HS REYMUNDO Stop: 10/16/19 21:30 Last Admin: 09/22/19 20:57 Dose: 300 mg Documented by: Glucagon (Glucagen) 1 mg SQ UD PRN; Protocol PRN Reason: Hypoglycemia Protocol Stop: 10/16/19 21:30 Glucose (Dex4 Glucose) 4 - 8 tabs PO UD PRN; Protocol PRN Reason: Hypoglycemia Protocol Stop: 10/16/19 21:30 Glucose (Glucose 40%) 15 - 30 gm PO UD PRN; Protocol PRN Reason: Hypoglycemia Protocol Stop: 10/16/19 21:30 Hydralazine HCl (Hydralazine Hcl) 10 mg IV Q8 PRN PRN Reason: SBP>180 or DBP>110 Stop: 10/17/19 23:36 Last Admin: 09/18/19 19:31 Dose: 10 mg Documented by: Hydralazine HCl (Apresoline) 100 mg PO BID17 REYMUNDO Stop: 10/22/19 16:59 Last Admin: 09/23/19 08:14 Dose: 100 mg Documented by: Sodium Chloride (Nss 1000ml) 1,000 mls @ 0 mls/hr IV .Q0M PRN PRN Reason: For Hemodialysis Use ONLY Stop: 09/24/19 12:59 Iron Sucrose 200 mg/ Sodium (Chloride) 110 mls @ 220 mls/hr IV TODAY [facility] Stop: 10/23/19 12:59 Last Infusion: 09/23/19 14:31 Dose: Infused Documented by: Cefazolin Sodium (Ancef 2000mg) 2,000 mg in 15 mls @ 3.75 mls/min IV PREOP [facility] Stop: 09/24/19 18:00 Insulin Aspart (Novolog Flexpen) 0 units SC ACHS RE[facility]UN[facility] Stop: 10/16/19 21:30 Last Admin: 09/23/19 13:31 Dose: 3 units Documented by: Insulin Glargine (Lantus Solostar Pen) 22 units SQ QDD [facility] Stop: 10/22/19 16:29 Last Admin: 09/22/19 17:21 Dose: 22 units Documented by: Levothyroxine Sodium (Synthroid) 112 mcg PO DAILYBB REYMUNDO Stop: 10/17/19 06:29 Last Admin: 09/23/19 06:03 Dose: 112 mcg Documented by: Magnesium Hydroxide (Milk Of Magnesia) 30 ml PO Q12H PRN PRN Reason: Constipation Stop: 10/16/19 21:30 Metoprolol Tartrate (Lopressor) 25 mg PO BID [facility]UNDO Stop: 10/16/19 20:59 Last Admin: 09/23/19 08:13 Dose: 25 mg Documented by: Miscellaneous (Carbohydrates For Hypoglycemia) 15 - 30 gm PO UD PRN PRN Reason: Hypoglycemia Protocol Stop: 10/16/19 21:30 Last Admin: 09/22/19 08:19 Dose: 15 gm Documented by: Ondansetron HCl (Zofran) 4 mg IV Q6H PRN PRN Reason: Nausea Stop: 10/16/19 21:30 Sodium Bicarbonate (Sodium Bicarbonate) 650 mg PO BID [facility] Stop: 10/21/19 20:59 Last Admin: 09/23/19 08:14 Dose: 650 mg Documented by: Vitamin B Complex/Folic Acid (Nephrocaps) 1 cap PO QAM [facility] Stop: 10/24/19 08:59 Warfarin Sodium (Coumadin) 4 mg PO DAILY@1600 [facility] Stop: 10/20/19 15:59 Last Admin: 09/22/19 16:50 Dose: 4 mg Documented by: PG Care Time/CCT Total # of Minutes Spent Total Time Spent with Patient: Total time spent is greater than 50% in coordination of care (as documented) at patient's floor/unit and/or counseling p atient: (1) Anemia Anemia type: unspecified type Qualified Code(s): D64.9 - Anemia, unspecified
--- NOTE | 2019-09-23 12:17 | Nephrology Progress Note ---
Date of Service September 23, 2019 Assessment & Plan (1) ROSA (acute kidney injury): Shauna Pearce is a 89-year-old female with stage 3 chronic kidney disease, baseline creatinine 2.0, secondary to microvascular disease with history of hypertension and diabetes. Admitted with generalized weakness over few weeks and found to have acute kidney injury, creatinine was 4.2 on admission with prior creatinine 2.0 when last checked as outpatient 12/17/18. No significant change in kidney function despite gentle hydration. Urine sediment w/ microscopic hematuria and has more than a gram of proteinuria. Serological workup including ANCA is currently pending. Patient has recently been treated for UTI. Current urine culture is negative and patient has no urinary symptoms. Renal US reveals mild cortical thinning but no hydronephrosis, stone, mass or cyst. As renal function progressively declining creatinine now 5.1 with EGFR around 7, discussed about options including starting on dialysis. Discussed in detail with patient and her daughter Evelin over telephone and they are agr eeable to start on dialysis. -- will consult vascular surgery for tunneled dialysis catheter and hopefully the 1st treatment tomorrow for 2 hours. --consult social service to set up outpatient dialysis at [facility]. If we can set up the outpatient dialysis later this week or early next week at [place] hopefully we can discharge patient from hospital by Monday --continue current antihypertensive medications --start on Venofer, start on Tums with each meal, renal vitamin daily and calcitriol 3 times weekly -- Medications are appropriate for kidney function -- Document I/O --serological workup can be followed as an outpatient and renal function can be monitored as well to see whether there is any evidence of renal recovery however with her underlying advanced CKD, she will most likely have to continue on dialysis. Will follow (2) Chronic kidney disease, stage III (moderate): (3) Hematuria: (4) Hypertension: (5) Pulmonary infiltrate: (6) Diabetes mellitus with diabetic neuropathy: (7) AF (paroxysmal atrial fibrillation): (8) Hypothyroidism: Subjective Shauna was seen and examined in her room this morning. Overall she has been feeling well, denies any shortness of breath, chest pain. Urine output has been decent. Blood pressure better controlled. Renal function continues to worsen with creatinine up to 5.1 this morning although electrolytes so far relatively acceptable. Review of Systems Review of Systems: All systems reviewed & are unremarkable except as noted in HPI & below Physical Exam Constitutional: WD/WN, vitals as above no acute distress Respiratory: normal respiratory effort, lungs clear to auscultation Cardiovascular: RRR, no murmur, no edema Skin: no rashes, warm and dry Neurologic: moves all extremities and awake; not confused Psychiatric: A+Ox3, euthymic affect Results & Data Vital Signs (Past 12 Hours) Vital Signs Temp Pulse Resp BP Pulse Ox 09/23/19 12:07 36.7 C 49 L 18 139/66 95 09/23/19 08:04 36.6 C 74 20 115/78 99 09/23/19 07:35 36.6 C 74 20 115/78 99 09/23/19 05:01 36.8 C 51 L 18 173/73 H 94 PG Care Time/CCT Total # of Minutes Spent Total Time Spent with Patient: Total time spent is greater than 50% in coordination of care (as documented) at patient's floor/unit and/or counseling patient:
[2019-09-23] MEDS ORDERED: IRON SUCROSE 200 MG in 0.9 % SODIUM CHLORIDE 100 ML IV SCH (13:00)
[2019-09-23] MEDS: CALCITRIOL 0.25 MCG CAPSULE PO SCH (13:31)
[2019-09-23] MEDS ORDERED: INSULIN GLARGINE SOLOSTAR 100 UNITS/ML 3 ML PEN SC ONE (17:40)
[2019-09-23] MEDS ORDERED: Nursing to Pharmacy Communication ONE (17:41)
[2019-09-23] MEDS: CALCIUM CARBONATE 500 MG CHEWABLE TAB PO SCH (18:05)
[2019-09-23] MEDS: GABAPENTIN 300 MG CAP PO SCH (20:21)
[2019-09-23] MEDS: ATORVASTATIN 10 MG TAB PO SCH (20:22)
[2019-09-24] MEDS: LEVOTHYROXINE SODIUM 112 MCG TABLET PO SCH (05:54)
[2019-09-24] MEDS ORDERED: CEFAZOLIN 2000MG 2,000 MG/15 ML SYR IV SCH (06:00)
[2019-09-24] MEDS ORDERED: SODIUM CHLORIDE 0.9% 1000ML 1,000 ML IV PRN (07:00)
[2019-09-24 07:49] LABS: INR 2.4 (0.9-1.1); Prothrombin Time 22.8 Seconds (9.0-12.0)
[2019-09-24] MEDS: AMLODIPINE BESYLATE 5 MG TAB PO SCH (07:49)
[2019-09-24] MEDS: METOPROLOL TARTRATE 25 MG TAB PO SCH ×2 (07:50→20:22)
[2019-09-24] MEDS: NEPHROCAPS PO SCH (07:50)
[2019-09-24] MEDS: CALCIUM CARBONATE 500 MG CHEWABLE TAB PO SCH ×3 (07:50→17:48)
[2019-09-24] MEDS: HydrALAZINE TAB 50 MG TAB PO SCH ×3 (07:50→18:08)
[2019-09-24] MEDS: SODIUM BICARBONATE 650 MG TAB PO SCH ×2 (07:51→20:22)
[2019-09-24] MEDS: FUROSEMIDE 20 MG TAB PO SCH ×2 (07:51→18:09)
[2019-09-24] MEDS: INSULIN ASPART 100 UNITS/ML 3 ML PEN SC SCH ×4 (07:58→20:23)
[2019-09-24 08:26] LABS: BUN Creatinine Ratio 14.7 (10-20); Calcium 8.7 mg/dl (8.5-10.1); Creatinine Clr Calc Pharmacy 9.2 ml/min; Est GFR (African American) 8.2; Potassium 4.3 mmol/L (3.5-5.1)
[2019-09-24] MEDS ORDERED: HEPARIN SOD (PORCINE) 5,000 UNITS/ML VIAL ONE (08:44)
--- NOTE | 2019-09-24 08:45 | Consultation ---
Date of Consultation September 24, 2019 Assessment & Plan (1) End stage renal disease: Pt scheduled to start HD today. Permcath to be placed in OR this morning by Dr Westbrook. Pt agreeable. Patient was seen, examined, and chart reviewed. Agree with exam and treatment plan of the Vascular PA. I have discussed the risks options and benefits of the procedure with the patient. The patient understands the risks options and benefits and agrees to the procedure. History of Present Illness Reason for Consultation: ESRD, need permcath Attending Physician: Manuel Recinos DO History of Present Illness 89 yo f with multiple medical problems, including CKD, A fib on coumadin, HTN, DMII, gout, hyperlpidemia, hypothyroidism, admitted with pneumonia and worsening renal fxn, seen in consultation today for permcath insertion to initiate HD. Pt admits fatigue, malaise, general weakness, FUENTES, edema. Denies DOMINGO, fever, c hills, chest pain, SOB at rest, abd pain, N/V, rest pain, claudication, other complaints. Allergies Allergy/AdvReac Type Severity Reaction Status Date / Time No Known Allergies Allergy Unverified 09/09/19 10:26 Home Medications Home Medications Medication Instructions Recorded Confirmed Type atorvastatin 10 mg PO HS 12/17/18 09/17/19 History cholecalciferol (vitamin D3) 2,000 unit PO QAM 12/17/18 09/17/19 History [Vitamin D3] insulin glargine [Lantus Solostar 30 unit SUBCUT QDD 12/17/18 09/17/19 History U-100 Insulin] levothyroxine 112 mcg PO QAM 12/17/18 09/17/19 History vitamins A,C,[id number]-[id number] 1 cap PO BID 12/17/18 09/17/19 History [PreserVision AREDS] warfarin 5 mg PO HS 12/17/18 09/17/19 History lancets 33 gauge #400 ea 04/03/19 09/09/19 Rx furosemide 20 mg tablet 20 mg PO DAILY #90 tab 05/28/19 09/17/19 Rx metoprolol tartrate 25 mg tablet 25 mg PO BID #30 tab 06/19/19 09/17/19 Rx acetaminophen 325 mg tablet 650 mg PO Q4H PRN tab 07/31/19 09/17/19 History blood sugar diagnostic #10 ea 07/31/19 09/09/19 History insulin lispro 100) 100 unit/mL 20 units SUBCUT DAILY #7 ml 07/31/19 09/17/19 History subcutaneous pen gabapentin 100 mg capsule 100 mg PO QAM #30 cap 08/22/19 09/17/19 Rx gabapentin 300 mg capsule 300 mg PO HS #30 cap 08/22/19 09/17/19 Rx pen needle, diabetic 32 gauge x #360 ea 08/22/19 09/09/19 Rx " meclizine 12.5 mg tablet 12.5 mg PO TID PRN #30 tab 09/09/19 09/17/19 Rx ciprofloxacin HCl 250 mg tablet 250 mg PO BID #10 tab 09/11/19 Rx Patient History Medical History (Updated 09/24/19 @ 08:44 by Dorina Riley PA-C) Arthritis (Chronic) Basosquamous carcinoma of skin Closed fracture of shaft of humerus (Resolved 04/09/11) End stage renal disease Hematuria Pericardial effusion (Resolved) Pulmonary infiltrate Surgical History S/P dilation and curettage Family History Mother Diabetes Hypertension Macular degeneration Hypothyroidism Social History Preferred Language: Yemeni Communication Ability: Effective Visual Impairment: No Limitations Hearing Ability: Normal 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: No Beliefs That Will Affect Care: Scientologist Scientologist Beliefs: Roam presybeterian marital status: Current Living Situation: Spouse Current Living Situation Comment: split level home current occupational status: retired Feels Safe at Home: Yes Smoking Status: Never smoker Second Hand Exposure: No ; Hx Alcohol Use: No Hx Substance Use: No Childhood Exposure to Second-Hand Smoke: No Seatbelt Use: always Review of Systems Review of Systems: All systems reviewed & are unremarkable except as noted in HPI & below Physical Exam Constitutional: WD/WN, vitals as above + obese, cooperative and comf ortable; not in distress and not combative Eyes: PERRL, conjunctivae normal, anicteric sclerae ENMT: external ear and nose normal, oropharynx normal Ears: no hearing impairment Neck: trachea midline Respiratory: normal respiratory effort, lungs clear to auscultation Auscultation: + diminished lung sounds Cardiovascular: Rate/Rhythm: + irregularly irregular Vessels: femoral pulses present, posterior tibial pulses present, dorsalis pedis pulses present, brachial pulses present and radial pulses present; no carotid bruit and + abnormal peripheral pulses Extremities: normal capillary refill and + edema Gastrointestinal (Abdomen): normal bowel sounds, soft, nontender, no hepatosplenomegaly Musculoskeletal: no cyanosis or clubbing, extremities motor strength 5/5 Skin: no rashes, warm and dry Neurologic: awake; no focal motor deficits and not confused Psychiatric: Orientation: alert and oriented x 3 Affect: + anxious affect Results & Data Vital Signs (Past 12 Hours) Vital Signs Temp Pulse Resp BP Pulse Ox 09/24/19 07:28 36.8 C 56 L 18 190/69 H 92 09/24/19 00:02 36.7 C 55 L 20 156/70 H 95
--- NOTE | 2019-09-24 09:02 | Pre Anesthesia Assessment ---
Date of Service September 24, 2019 Pre Sedation Assessment Vital Signs Temp Pulse Resp BP Pulse Ox 09/24/19 07:28 36.8 C 56 L 18 190/69 H 92 09/24/19 00:02 36.7 C 55 L 20 156/70 H 95 09/23/19 20:19 36.9 C 62 18 162/62 H 93 09/23/19 15:31 36.7 C 54 L 18 146/78 H 93 09/23/19 12:07 36.7 C 49 L 18 139/66 95 Cardiovascular + regular rate and + regular rhythm Respiratory normal respiratory effort, lungs clear to auscultation Pre-Sedation Airway Assessment Smoking Status: Never smoker Hx Sleep Apnea: No Short, Thick Neck: No Thyromental Distance: > or= 3.5 Finger Breadths Oral Cavity: + WNL Mallampati Class: II ASA: ASA4 NPO Status Date of Last Intake of Fluids: 09/23/19 Time of Last Intake of Fluids: 21:00 Date of Last Intake of Solid Food: 09/23/19 Time of Last Intake of Solid Foods: 21:00 Procedure Planning Contraindications for Sedation: none Current Medications Reviewed: Yes Notes The planned sedation has been discussed with the patient. Informed Consent was obtained. I have identified the patient, determined the appropriateness of sedation and have assessed the patient immediately prior to the procedure. All medicine(s) and interventions are by my order.
[2019-09-24] MEDS ORDERED: MIDAZOLAM HCL 1 MG/ML 2ML VIAL ONE (09:16)
[2019-09-24] MEDS ORDERED: fentaNYL citrate 100 MCG/2 ML VIAL ONE (09:16)
[2019-09-24] MEDS ORDERED: LIDOCAINE HCL 1% 20 ML VIAL INJ ONE (09:36)
--- NOTE | 2019-09-24 09:46 | Post Anesthesia Assessment ---
Date of Service September 24, 2019 Post Sedation Assessment Vital Signs Temp Pulse Pulse Resp BP Pulse Ox 09/24/19 09:43 59 L 18 135/66 96 09/24/19 09:38 63 18 140/75 98 09/24/19 09:35 59 L 18 140/75 100 09/24/19 09:30 58 L 18 147/65 H 100 09/24/19 09:25 65 18 149/68 H 100 09/24/19 09:20 59 L 18 147/82 H 99 09/24/19 09:02 36.8 C 66 18 160/106 H 96 09/24/19 07:28 36.8 C 56 L 18 190/69 H 92 09/24/19 00:02 36.7 C 55 L 20 156/70 H 95 09/23/19 20:19 36.9 C 62 18 162/62 H 93 09/23/19 15:31 36.7 C 54 L 18 146/78 H 93 09/23/19 12:07 36.7 C 49 L 18 139/66 95 Recovery Score Activity: Moves 4 extremities Respiration: Deep Breath/Cough Circulation: +/-20% PreAnes Value Consciousness: Arouseable (by name) Oxygen Saturation: > 92% On Room Air Post Anesthesia Score: 9 Discharge Sedation Level of Care: Fast Track Phase II Post Sedation Plan On clinical assessment, the patient appears to have tolerated the sedation without complications. Patient is recovering as anticipated. Patient will continue to be monitored by nursing and may be discharged when sedation discharge criteria are met per below protocol. Upon Completions of procedure up to 15 minutes continue every 5 minute vital signs and the P.A.R. score; then discharge to a Phase I or Fast Track to Phase II per the following guidelines: * Discharge Patient to appropriate Phase II area if PAR is 8 or greater or return to pre- procedure baseline. The post - procedure orders will be as directed. * If PAR score is less than 8 or not return to pre-procedure baseline then patient will follow Phase I monitoring till PAR is reached for Phase II. The Phase I may be done in procedure room or may call to secure a Phase I area. * If naloxone or flumazenil are used for reversal, hold in Phase I for continued monitoring from when last reversal dose was given for a minimum of 60 minutes or longer pending the nurse and/or physician discretion of patient condition before discharge to Phase II. Please call the Sedation Physician to re-evaluate and complete post-note for discharge to Phase II area. Do NOT discharge from procedure sedation or Phase 1 until post- sedation evaluation note is complete by procedure /sedation MD Sedation Discharge Instructions to be given to the patient at discharge to home.
--- NOTE | 2019-09-24 09:46 | Procedure Note ---
Angiogram Post Procedure Fluoroscopy Time (minutes): 0.2 Conscious Sedation Time (minutes): 18 Radiation (mGy): 1 Contrast: 0 Post Operative Report Pre & Post Diagnosis Operation Date: 09/24/19 09:50 Pre-Op Diagnosis: Acute Kidney Injury Post-Op Diagnosis: Acute Kidney Injury Procedure Operation Date: 09/24/19 09:50 Actual Procedures p Insertion of Perm Catheter, Right Internal Jugular Approach, Fluoroscopy for Positioning; Moderate Sedation From 09 to 09(Right) - Zion Westbrook MD Surgeon Zion Westbrook MD Hospital Supervisor None Estimated Blood Loss 5 Findings Consistent with Post-Op Diagnosis Specimens None Anesthesia Type RN Sedation Complications none Disposition Accompanied Patient To Recovery: No Disposition: Recovery Room Indications This is an 81-year-old female who has end-stage renal disease and acute injury requiring dialysis. She needs an access for dialysis. PermCath was recommen ded. I have discussed the risks options and benefits of the procedure with the patient. The patient understands the risks options and benefits and agrees to the procedure. Description of Procedure Patient was taken to the angio suite and placed in the supine position. The right side of the neck and chest wall were prepped and draped in a sterile m regino. The patient was identified and a timeout performed. Local anesthesia was then administered to the appropriate areas of the neck and chest wall. Ultrasound was then used to locate the right internal jugular vein. The vein compressed easily, had no filing defects, and was patent. The vein was then punctured under direct ultrasound imaging. A guidewire was then passed centrally under fluoroscopic imaging. A stab wound was then made in the anterior chest wall and a 19 cm permcath was passed from the stab wound on the chest wall to the puncture site on the neck. The puncture site was then dilated till the 14Fr peel away sheath was inserted. The permcath was then inserted through the sheath to a central position in the distal superior vena cava. The peel away sheath was then removed. The catheter was then sutured in place using nylon sutures. The puncture was then closed using a 4-0 Vicryl subcuticular suture. Dermabond was used for a dressing on the puncture site. Both ports aspirated and flushed easily and were then packed with heparin. A sterile dressing was applied to the catheter. The patient left the operation room in satisfactory condition and tolerated the procedure well. All needle and sponge counts were correct at the end of the procedure. I attest to the content of the Intraoperative Record and any orders documented therein. Any exceptions are noted below.
--- NOTE | 2019-09-24 10:36 | Nephrology Progress Note ---
Date of Service September 24, 2019 Assessment & Plan (1) End stage renal disease: Shauna Pearce is a 89-year-old female with stage 3 chronic kidney disease, baseline creatinine 2.0, secondary to microvascular disease with history of hypertension and diabetes. Admitted with generalized weakness over few weeks and found to have acute kidney injury, creatinine was 4.2 on admission with prior creatinine 2.0 when last checked as outpatient 12/17/18. No significant change in kidney function despite gentle hydration. Urine sediment w/ microscopic hematuria and has more than a gram of proteinuria. Serological workup including ANCA is currently pending. Patient has recently been treated f or UTI. Current urine culture is negative and patient has no urinary symptoms. Renal US reveals mild cortical thinning but no hydronephrosis, stone, mass or cyst. Renal function progressively worsened to creatinine up to 5.1 with some electrolyte abnormality and getting tunneled dialysis catheter this morning to start on dialysis. -- will plan for 1st treatment this afternoon for 2 hours. --can be discharged once outpatient dialysis can be set up at [facility]. --continue current antihypertensive medications --on Venofer, start on Tums with each meal, renal vitamin daily and calcitriol 3 times weekly -- Medications are appropriate for kidney function -- Document I/O --serological workup can be followed as an outpatient and renal function can be monitored as well to see whether there is any evidence of renal recovery however with her underlying advanced CKD, she will most likely have to continue on dialysis. Will follow (2) Hypertension: (3) Anemia in chronic kidney disease (CKD): Subjective Shauna was not in her room as she left for tunneled catheter this morning, labs and vital signs are reviewed. Blood pressure much better controlled. Creatinine staying above 5, electrolyte acceptable. Results & Data Vital Signs (Past 12 Hours) Vital Signs Temp Pulse Pulse Resp BP Pulse Ox 09/24/19 09:43 59 L 18 135/66 96 09/24/19 09:38 63 18 140/75 98 09/24/19 09:35 59 L 18 140/75 100 09/24/19 09:30 58 L 18 147/65 H 100 09/24/19 09:25 65 18 149/68 H 100 09/24/19 09:20 59 L 18 147/82 H 99 09/24/19 09:02 36.8 C 66 18 160/106 H 96 09/24/19 07:28 36.8 C 56 L 18 190/69 H 92 09/24/19 00:02 36.7 C 55 L 20 156/70 H 95 PG Care Time/CCT Total # of Minutes Spent Total Time Spent with Patient: Total time spent is greater than 50% in coordination of care (as documented) at patient's floor/unit and/or counseling patient:
[2019-09-24] MEDS ORDERED: IRON SUCROSE 100 MG in 0.9 % SODIUM CHLORIDE 100 ML IV SCH (12:15)
[2019-09-24] MEDS: ACETAMINOPHEN 325 MG TAB PO PRN ×2 (13:11→17:08)
[2019-09-24] MEDS: IRON SUCROSE 200 MG in 0.9 % SODIUM CHLORIDE 100 ML IV SCH (14:20)
[2019-09-24] MEDS: WARFARIN SOD 4 MG TAB PO SCH (15:53)
--- NOTE | 2019-09-24 16:11 | Hospitalist Progress Note ---
Date of Service September 24, 2019 Assessment & Plan (1) ROSA (acute kidney injury): Baseline CKD III with cr 1.5 Elevated to 4.1 on admission, unclear how long ago this happened as most recent labs prior to this were from 11/2018, but has been feeling unwell for 2 months Non-oliguric but with LE edema, uncontrolled HTN Renal US without obstruction Systems Requirements Planner did not improve at all with IVFs and FeNA >1% all likely consistent with progressive renal failure likely chronic from HTN, DM With proteinuria worsening from previous Cr worsened to 5.0 09/23, still 5.0 today, still with edema and hypertension tunnelled HD catheter on right placed by DR. Westbrook on 09/24 first HD session for two hours 09/24, tolerated well, plan for repeat session tomorrow BPs better stable with amlodipine 10mg daily, lasix 20mg po bid, and hydralazine Appreciate Nephro consultation -checking antibodies and workup for GN-pending, can follow up outpatient -repeat UA with persistent microscopic hematuria--> would need cysto as outpt -24 hr urine protein 1098, CrCL 8.7 -serum MIMI negative -continue HCO3 650mg po bid (2) Weakness: Likely secondary to worsening renal failure and PNA, much improved since admission See below for plans PT/OT evals Improved and not interested in going to SNF will go home once HD arranged could potentially go home tomorrow after HD (3) Abnormal finding on urinalysis: UA abnormal for signs of infection as outpt and was started on cipro just prior to admission and grew Proteus pansensitive on cx Repeat UA noted for + leuk est, neg nitrites now after taking 1 dose Cipro Changed to rocephin given CXR finding and treatment for PNA Cx now no growth -treatment completed (4) Gout: With right hip pain now resolved, not likely from gout Doppler RLE neg for DVT With persistent pain with exertion--> heating pad, tylenol prn and now pain much improved patient able to ambulate better today (5) Diabetes mellitus with diabetic neuropathy: With hypoglycemia here and has been having it at home too--> then with hyperglycemia since reducing insulin dose Now glucose low again Appreciate CDE counseling A1c 9.0 on 09/09, will not recheck Lantus 10 units last evening due to NPO status this AM for procedure will resume 22 units this evening sugars stable today (6) Hypertension: BP improved with Norvasc 10mg, Hydralazine 100mg BID and Lasix likely that removing some volume with HD will help (7) Anemia: Baseline 13.1, dropped from 10.4 on admission to 9.0 then back up to 9.5 No obvious bleeding Iron panel consistent with chronic disease -follow CBC and may need Procrit as outpt Hb 8.6 on 09/23 (8) AF (paroxysmal atrial fibrillation): Has been in sinus rhythm here INR 2.7 on day of admission, then up to 3.2 likely high secondary to antibiotic use -held Coumadin 5mg on 09/20 -restarted coumadin 4mg daily on 09/20, but may need to increase the dose again now that antibiotics are completed INR 2.1 on 09/22, no Coumadin today with plans for HD catheter check INR in the morning -continue metoprolol for rate control (9) Hyperlipidemia: -continue statin (10) Hypothyroidism: continue home med TSH WNL on 09/09, will not recheck (11) Pneumonia: CXR with Right sided infiltrate, no cough, no fevers but always has chills, no leukocytosis -treated initially with Rocephin and azithro--> then converted to cefdinir and azithro Repeat CXR 09/18 with improved infiltrate--> question if was actually was from pulm edema? -finished out course of cefdinir and po azithro for total 5 day course (12) DVT prophylaxis: Coumadin Subjective patient experienced more pain with the tunneled HD catheter than she was expecting she tolerated 2 hours of HD this afternoon, went okay, said that she was really cold no chest pain, no dyspnea, no cough, no nausea tolerated some liquids after everything done reviewed labs, Cr 5, electrolytes stable BP still quite elevated at times d/w CM, plan for outpatient HD to start this Monday d/w Dr. Nettles, plan for full HD session tomorrow, can likely be discharged afterwards Review of Systems Review of Systems: All systems reviewed & are unremarkable except as noted in HPI & below Physical Exam Constitutional: WD/WN, vitals as above Eyes: PERRL, conjunctivae normal, anicteric sclerae ENMT: external ear and nose normal, oropharynx normal Neck: trachea midline, no thyromegaly Respiratory: normal respiratory effort, lungs clear to auscultation Cardiovascular: Rate/Rhythm: regular rate and regular rhythm Heart Sounds: normal S1 and normal S2; no murmur Vessels: no JVD Extremities: normal capillary refill and + edema Gastrointestinal (Abdomen): normal bowel sounds, soft, nontender, no hepatosplenomegaly Musculoskeletal: no cyanosis or clubbing, extremities motor strength 5/5 Skin: no rashes, warm and dry Neurologic: patellar DTR's 2+ bilat, sensation intact and PERRL, EOMI, accommodation nl, no face palsy, no dysarthria Psychiatric: A+Ox3, euthymic affect Lymphatic: no cervical or axillary lymphadenopathy Results & Data Vital Signs (Past 12 Hours) Vital Signs Temp Pulse Pulse Pulse Resp BP BP 09/24/19 15:30 36.8 C 53 L 141/54 H 09/24/19 15:24 36.4 C L 49 L 18 130/66 09/24/19 12:00 53 L 141/45 H 09/24/19 11:40 53 L 144/60 H 09/24/19 11:20 55 L 140/55 L 09/24/19 11:00 53 L 141/45 H 09/24/19 10:40 55 L 140/66 09/24/19 10:20 57 L 162/70 H 09/24/19 10:00 37.1 C 53 L 09/24/19 09:43 59 L 18 135/66 09/24/19 09:38 63 18 140/75 09/24/19 09:35 59 L 18 140/75 09/24/19 09:30 58 L 18 147/65 H 09/24/19 09:25 65 18 149/68 H 09/24/19 09:20 59 L 18 147/82 H 09/24/19 09:02 36.8 C 66 18 160/106 H 09/24/19 07:28 36.8 C 56 L 18 190/69 H Pulse Ox 09/24/19 15:30 09/24/19 15:24 96 09/24/19 12:00 09/24/19 11:40 09/24/19 11:20 09/24/19 11:00 09/24/19 10:40 09/24/19 10:20 09/24/19 10:00 09/24/19 09:43 96 09/24/19 09:38 98 09/24/19 09:35 100 09/24/19 09:30 100 09/24/19 09:25 100 09/24/19 09:20 99 09/24/19 09:02 96 09/24/19 07:28 92 Laboratory Results Laboratory Results - last 24 hr 09/23/19 09/23/19 09/24/19 16:36 20:28 07:19 PT 22.8 H INR 2.4 H Sodium Potassium Chloride Carbon Dioxide Anion Gap BUN Creatinine Est Cr Clr Drug Dosing Est GFR ( Amer) Est GFR (Non-Af Amer) BUN/Creatinine Ratio Glucose POC Glucose 132 H 132 H Calcium 09/24/19 09/24/19 09/24/19 07:19 07:39 13:11 PT INR Sodium 143 Potassium 4.3 Chloride 114 H Carbon Dioxide 22 Anion Gap 7.0 BUN 75 H Creatinine 5.08 H* Est Cr Clr Drug Dosing 9.2 Est GFR ( Amer) 8.2 Est GFR (Non-Af Amer) 7.0 BUN/Creatinine Ratio 14.7 Glucose 75 POC Glucose 86 86 Calcium 8.7 Medications Administered Current Inpatient Medications Acetaminophen (Tylenol) 650 mg PO Q4H PRN PRN Reason: Pain or Fever Stop: 10/16/19 21:30 Last Admin: 09/24/19 13:11 Dose: 650 mg Documented by: Amlodipine Besylate (Norvasc) 10 mg PO QAM [facility] Stop: 10/19/19 08:59 Last Admin: 09/24/19 07:49 Dose: 10 mg Documented by: Atorvastatin Calcium (Lipitor) 10 mg PO HS [facility] Stop: 10/18/19 20:59 Last Admin: 09/23/19 20:22 Dose: 10 mg Documented by: Calcitriol (Rocaltrol) 0.25 mcg PO MoWeFr@0900 [facility] Stop: 10/23/19 12:59 Last Admin: 09/23/19 13:31 Dose: 0.25 mcg Documented by: Calcium Carbonate (Tums) 500 mg PO TIDM [facility] Stop: 10/23/19 16:59 Last Admin: 09/24/19 13:11 Dose: 500 mg Documented by: Dextrose (Dextrose 50%) 25 - 50 ml IV UD PRN; Protocol PRN Reason: Hypoglycemia Protocol Stop: 10/16/19 21:30 Furosemide (Lasix) 20 mg PO BID17 [facility] Stop: 10/20/19 16:59 Last Admin: 09/24/19 07:51 Dose: 20 mg Documented by: Gabapentin (Neurontin) 300 mg PO HS [facility] Stop: 10/16/19 21:30 Last Admin: 09/23/19 20:21 Dose: 300 mg Documented by: Glucagon (Glucagen) 1 mg SQ UD PRN; Protocol PRN Reason: Hypoglycemia Protocol Stop: 10/16/19 21:30 Glucose (Dex4 Glucose) 4 - 8 tabs PO UD PRN; Protocol PRN Reason: Hypoglycemia Protocol Stop: 10/16/19 21:30 Glucose (Glucose 40%) 15 - 30 gm PO UD PRN; Protocol PRN Reason: Hypoglycemia Protocol Stop: 10/16/19 21:30 Hydralazine HCl (Hydralazine Hcl) 10 mg IV Q8 PRN PRN Reason: SBP>180 or DBP>110 Stop: 10/17/19 23:36 Last Admin: 09/18/19 19:31 Dose: 10 mg Documented by: Hydralazine HCl (Apresoline) 100 mg PO BID17 [facility] Stop: 10/22/19 16:59 Last Admin: 09/24/19 07:50 Dose: 100 mg Documented by: Cefazolin Sodium (Ancef 2000mg) 2,000 mg in 15 mls @ 3.75 mls/min IV PREOP [facility] Stop: 09/24/19 18:00 Last Admin: 09/24/19 09:01 Dose: 3.75 mls/min Documented by: Iron Sucrose 200 mg/ Sodium (Chloride) 110 mls @ 220 mls/hr IV DAILY@1400 [facility]; Protocol Stop: 09/27/19 14:29 Last Infusion: 09/24/19 14:58 Dose: Infused Documented by: Insulin Aspart (Novolog Flexpen) 0 units SC ACHS [facility] Stop: 10/16/19 21:30 Last Admin: 09/24/19 13:47 Dose: Not Given Documented by: Insulin Glargine (Lantus Solostar Pen) 22 units SQ QDD [facility] Stop: 10/22/19 16:29 Last Admin: 09/22/19 17:21 Dose: 22 units Documented by: Levothyroxine Sodium (Synthroid) 112 mcg PO DAILYBB [facility] Stop: 10/17/19 06:29 Last Admin: 09/24/19 05:54 Dose: 112 mcg Documented by: Magnesium Hydroxide (Milk Of Magnesia) 30 ml PO Q12H PRN PRN Reason: Constipation Stop: 10/16/19 21:30 Metoprolol Tartrate (Lopressor) 25 mg PO BID [facility] Stop: 10/16/19 20:59 Last Admin: 09/24/19 07:50 Dose: 25 mg Documented by: Miscellaneous (Carbohydrates For Hypoglycemia) 15 - 30 gm PO UD PRN PRN Reason: Hypoglycemia Protocol Stop: 10/16/19 21:30 Last Admin: 09/22/19 08:19 Dose: 15 gm Documented by: Ondansetron HCl (Zofran) 4 mg IV Q6H PRN PRN Reason: Nausea Stop: 10/16/19 21:30 Sodium Bicarbonate (Sodium Bicarbonate) 650 mg PO BID [facility] Stop: 10/21/19 20:59 Last Admin: 09/24/19 07:51 Dose: Not Given Documented by: Vitamin B Complex/Folic Acid (Nephrocaps) 1 cap PO QAM [facility] Stop: 10/24/19 08:59 Last Admin: 09/24/19 07:50 Dose: Not Given Documented by: Warfarin Sodium (Coumadin) 4 mg PO DAILY@1600 [facility] Stop: 10/20/19 15:59 Last Admin: 09/24/19 15:53 Dose: 4 mg Documented by: PG Care Time/CCT Total # of Minutes Spent Total Time Spent with Patient: Total time spent is greater than 50% in coordination of care (as documented) at patient's floor/unit and/or counseling patient: (1) Anemia Anemia type: unspecified type Qualified Code(s): D64.9 - Anemia, unspecified
[2019-09-24] MEDS: INSULIN GLARGINE SOLOSTAR 100 UNITS/ML 3 ML PEN SQ SCH (17:48)
[2019-09-24] MEDS: GABAPENTIN 300 MG CAP PO SCH (20:23)
[2019-09-24] MEDS: ATORVASTATIN 10 MG TAB PO SCH (20:23)
[2019-09-25] MEDS: LEVOTHYROXINE SODIUM 112 MCG TABLET PO SCH (06:05)
[2019-09-25] MEDS ORDERED: SODIUM CHLORIDE 0.9% 1000ML 1,000 ML IV PRN (08:54)
[2019-09-25] MEDS: NEPHROCAPS PO SCH (08:55)
[2019-09-25] MEDS: AMLODIPINE BESYLATE 5 MG TAB PO SCH (08:55)
[2019-09-25] MEDS: CALCIUM CARBONATE 500 MG CHEWABLE TAB PO SCH ×2 (08:55→13:34)
[2019-09-25] MEDS: SODIUM BICARBONATE 650 MG TAB PO SCH (08:55)
[2019-09-25] MEDS: FUROSEMIDE 20 MG TAB PO SCH (08:55)
[2019-09-25 08:56] VITALS: O2SAT 92
[2019-09-25] MEDS: CALCITRIOL 0.25 MCG CAPSULE PO SCH (08:56)
[2019-09-25] MEDS: HydrALAZINE TAB 50 MG TAB PO SCH (08:56)
[2019-09-25] MEDS ORDERED: EPOETIN ALFA 10,000 UNITS/ML VIAL IV ONE (08:56)
[2019-09-25] MEDS: METOPROLOL TARTRATE 25 MG TAB PO SCH (08:56)
[2019-09-25] MEDS: INSULIN ASPART 100 UNITS/ML 3 ML PEN SC SCH ×2 (09:32→12:42)
[2019-09-25] MEDS: IRON SUCROSE 200 MG in 0.9 % SODIUM CHLORIDE 100 ML IV SCH (09:33)
[2019-09-25 10:02] LABS: BUN Creatinine Ratio 13.3 (10-20); Creatinine Clr Calc Pharmacy 9.9 ml/min; Est GFR (Non-African American) 7.8
[2019-09-25 10:13] VITALS: TEMP 98.2
--- NOTE | 2019-09-25 12:49 | Nephrology Progress Note ---
Date of Service September 25, 2019 Assessment & Plan (1) End stage renal disease: Shauna Pearce is a 89-year-old female with stage 3 chronic kidney disease, baseline creatinine 2.0, secondary to microvascular disease with history of hypertension and diabetes. Admitted with generalized weakness over few weeks and found to have acute kidney injury, creatinine was 4.2 on admission with prior creatinine 2.0 when last checked as outpatient 12/17/18. No significant change in kidney function despite gentle hydration. Urine sediment w/ microscopic hematuria and has more than a gram of proteinuria. Serological workup including ANCA is currently pending. Patient has recently been treated f or UTI. Current urine culture is negative and patient has no urinary symptoms. Renal US reveals mild cortical thinning but no hydronephrosis, stone, mass or cyst. Renal function progressively worsened to creatinine up to 5.1 with some electrolyte abnormality and started on hemodialysis in 09/24/2019 via tunneled dialysis catheter. . -- will plan for 2nd treatment for 3 hours today. She can be discharged after dialysis as she has outpatient dialysis all set up for next Monday at [facility]. --continue current antihypertensive medications --continue on Tums with each meal, renal vitamin daily and calcitriol 3 times weekly -- Medications are appropriate for kidney function -- Document I/O --serological workup can be followed as an outpatient and renal function can be monitored as well to see whether there is any evidence of renal recovery however with her underlying advanced CKD, she will most likely have to continue on dialysis. Will follow (2) Hypertension: -- Heplock IV -- Remains on metoprolol max dose due to bradycardia -- Amlodipine 10 mg daily added -- Continue furosemide 20 mg BID -- Hydralazine switched to 100 mg BID today (3) Anemia in chronic kidney disease (CKD): Subjective Shauna was seen and examined in her room this morning. Overall doing well, denies any symptoms. Tolerated HD well yesterday. Review of Systems Review of Systems: All systems reviewed & are unremarkable except as noted in HPI & below Physical Exam Constitutional: WD/WN, vitals as above no acute distress Respiratory: normal respiratory effort, lungs clear to auscultation Cardiovascular: RRR, no murmur, no edema Skin: no rashes, warm and dry Neurologic: moves all extremities and awake; not confused Psychiatric: A+Ox3, euthymic affect Results & Data Vital Signs (Past 12 Hours) Vital Signs Temp Pulse Pulse Resp BP BP Pulse Ox 09/25/19 12:40 59 L 145/75 H 09/25/19 12:38 36.8 C 63 16 170/84 H 92 09/25/19 12:20 59 L 155/77 H 09/25/19 12:00 60 158/74 H 09/25/19 11:40 59 L 152/69 H 09/25/19 11:20 58 L 155/70 H 09/25/19 11:00 54 L 133/60 09/25/19 10:40 56 L 123/59 L 09/25/19 10:20 55 L 123/62 09/25/19 10:00 57 L 139/57 L 09/25/19 09:53 36.8 C 63 63 139/62 09/25/19 08:55 36.9 C 62 16 170/84 H 92 09/25/19 07:45 36.9 C 62 20 151/68 H 94 PG Care Time/CCT Total # of Minutes Spent Total Time Spent with Patient: Total time spent is greater than 50% in coordination of care (as documented) at patient's floor/unit and/or counseling patient:
[2019-09-25 13:29] VITALS: BP 146/70; PULSE 58
--- NOTE | 2019-09-25 16:01 | Discharge Summary ---
Date of Service September 25, 2019 Admission HPI Per Admitting Provider 89 y/o F c/o feeling unwell and weak. Pt states that this has been ongoing over the last 2 months. It is not getting worse, but it is also not getting better. Pt saw her PCP on 09/09 for routine f/u and this was discussed. Labs and UA were done at that time. She had a routine f/u with Dr. Palma on 09/12 and no new changes were made at that time. Pt notes that she was called after her appt with PCP and told she had a UTI. She states that she did have some burning and urgency prior to this, but it had resolved. She was started on cipro yesterday (sx occurred and resolved prior to cipro use). Pt states she has diarrhea x2 weeks, but it was better on Monday or Monday. She did have cramping prior to onset of diarrhea, but this resolved with diarrhea. She was having about 1 bowel movement per day. No n/v. Pt states that she gets gout in her R knee. She has been having increased LE pain moving into her entire LE since Monday. She took tylenol, but no help for this. She has ongoing issues with b/l L>R LE swelling at baseline. Pt states that she has had no issues with PO intake. She states her appetite is good. Pt denies fever, SOB, chest pain, n/v. Pt missed an appt with Dr. Palma today and at that time he noted that her cr was elevated over her usual. She was called and advised to come to the ED. Principal Diagnosis ROSA on CKD, advanced to ESRD now on hemodialysis Discharge Exam Constitutional WD/WN, vitals as above Eyes PERRL, conjunctivae normal, anicteric sclerae ENMT external ear and nose normal, oropharynx normal Neck trachea midline, no thyromegaly Respiratory normal respiratory effort, lungs clear to auscultation Cardiovascular Rate/Rhythm: regular rate and regular rhythm Heart Sounds: normal S1 and normal S2; no murmur Vessels: no JVD Extremities: normal capillary refill and + edema Gastrointestinal (Abdomen) normal bowel sounds, soft, nontender, no hepatosplenomegaly Musculoskeletal no cyanosis or clubbing, extremities motor strength 5/5 Skin no rashes, warm and dry Neurologic patellar DTR's 2+ bilat, sensation intact and PERRL, EOMI, accommodation nl, no face palsy, no dysarthria Psychiatric A+Ox3, euthymic affect Lymphatic no cervical or axillary lymphadenopathy Discharge Data Allergies Allergy/AdvReac Type Severity Reaction Status Date / Time No Known Allergies Allergy Unverified 09/09/19 10:26 Consultations 09/16/19 18:08 ED Decision to Admit Stat 09/16/19 21:31 Consult Case Management - Discharge Planning Routine Consult Nephrology Routine 09/23/19 11:07 Consult Case Management - Discharge Planning Routine Consult Vascular Surgery Routine Procedures Performed Operation Date: 09/24/19 09:50 Actual Procedures p Insertion of Perm Catheter, Right Internal Jugular Approach, Fluoroscopy for Positioning; Moderate Sedation From 924 to 942(Right) - Zion Westbrook MD Ordered Studies 09/16/19 21:31 US venous doppler LE RT Stat 09/17/19 10:46 US renal/blad retro comp Routine 09/21/19 08:00 US duplex renal artery Routine 09/24/19 09:00 EV cvc insrt tunnel wo prt/clinical resource manager Routine Hospital Course (1) End stage renal disease: 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, now advanced to ESRD requiring HD see below for details will get outpatient HD on Friday 09/28 and follow up with nephrology next week (2) ROSA (acute kidney injury): Baseline CKD III with cr 1.5 Elevated to 4.1 on admission, unclear how long ago this happened as most recent labs prior to this were from 11/2018, but has been feeling unwell for 2 months Non-oliguric but with LE edema, uncontrolled HTN Renal US without obstruction [employer]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 Westbrook on 09/24 first HD session for two hours 09/24, tolerated well full HD session of 4 hours on 09/25, tolerated really well, better than the day prior will d/c to home, has first outpatient HD session arranged for Friday 09/28 BPs better stable with amlodipine 10mg daily, lasix 20mg po bid, and hydralazine Appreciate Nephro consultation -checking antibodies and workup for GN-pending, can follow up outpatient -repeat UA with persistent microscopic hematuria--> would need cysto as outpt -24 hr urine protein 1098, CrCL 8.7 -serum MIMI negative -continue HCO3 650mg po bid, renal caps, calcitriol, Tums (3) Diabetes mellitus with diabetic neuropathy: With hypoglycemia here and has been having it at home too--> then with hyperglycemia since reducing insulin dose Now glucose low again Appreciate CDE counseling A1c 9.0 on 09/09, will not recheck was previously on Lantus 30 units, likely experiencing some hypoglycemia with renal failure DOSE REDUCED TO 20 UNITS, patient will follow up with PCP (4) Hypertension: BP improved with Norvasc 10mg, Hydralazine 100mg BID and Lasix likely that removing some volume with HD will help (5) Weakness: Likely secondary to worsening renal failure and PNA, much improved since admission See below for plans PT/OT evals Improved and not interested in going to SNF will go home with home health (6) Anemia: Baseline 13.1, dropped from 10.4 on admission to 9.0 then back up to 9.5 No obvious bleeding Iron panel consistent with chronic disease -follow CBC and may need Procrit as outpt (7) AF (paroxysmal atrial fibrillation): Has been in sinus rhythm here -continue metoprolol for rate control Coumadin dosing reduced slightly to 4mg from 5mg follow up with PCP for INR check (8) Hyperlipidemia: -continue statin (9) Hypothyroidism: continue home med TSH WNL on 09/09, will not recheck (10) Pneumonia: CXR with Right sided infiltrate, no cough, no fevers but always has chills, no leukocytosis -treated initially with Rocephin and azithro--> then converted to cefdinir and azithro Repeat CXR 09/18 with improved infiltrate--> question if was actually was from pulm edema? -finished out course of cefdinir and po azithro for total 5 day course (11) Gout: With right hip pain now resolved, not likely from gout Doppler RLE neg for DVT With persistent pain with exertion--> heating pad, tylenol prn and now pain much improved patient able to ambulate better today (12) Abnormal finding on urinalysis: UA abnormal for signs of infection as outpt and was started on cipro just prior to admission and grew Proteus pansensitive on cx Repeat UA noted for + leuk est, neg nitrites now after taking 1 dose Cipro Changed to rocephin given CXR finding and treatment for PNA Cx now no growth -treatment completed Total Time Total Time Spent Total Time Spent (In Minutes): 39 minutes Total Time Includes: Examination of the Patient, Discharge Planning, Medication Reconciliation, Communication With Other Providers (nephrology) and Other (discussion with family) Discharge Plan Discharge Items Patient Disposition: Home - Home Health Services Reason For Visit: WEAKNESS Discharge Diagnosis: ROSA on CKD, advanced to ESRD on hemodialysis Generalized weakness due to renal failure Condition on Discharge: Good Goals: follow up with dialysis on Monday close follow up with nephrology in the next two weeks improve nutrition and strength Activity: Resume your previous activity Bathing: No limitations Exercise/Sports: Gradually increase as tolerated Weightbearing: Full weightbearing Non-emergency contact: Primary Care Provider and [employer] G[employer] Call non-emergency contact if: you have any medication questions, your symptoms worsen, your pain is not controlled and you have a fever Follow-up/Referrals: Mauri Hinojosa MD [Primary Care Provider] - 10/04/19 11:30 am (Please, follow up with Dr. Gray on MondayOctober 04 at 11:30 am. *If you need to change this appointment, call the office at [phone].) Diet: Carb Consistent or DM2 and Dialysis Renal Addtl Attending Provider Instructions: Medications: - AMLODIPINE: 10mg daily, new medication for blood pressure control - HYDRALAZINE: 100mg twice a day, new medication for blood pressure control - LANTUS: note that your dose was reduced from 30 units to 15 units at night, this was due to hypoglycemia events in the morning - CALCITRIOL: take on Monday, Mon, Monday - TUMS: can buy over the counter, need 500mg three times a day, often the chews are 200mg so you would take 2 1/2 chews with meals - RENAL CAPS, SODIUM BICARB: take as prescribed, this is for renal health - WARFARIN: dose reduced to 4mg daily ROSA on chronic kidney disease, now advanced to End Stage Renal Disease requiring hemodialysis please report for first outpatient session on Monday as discussed with case management note the numerous additional medications started, including Calcitriol, Tums, Renal Caps, Sodium Bicarb you will follow up with nephrology, will ultimately need permanent access such as fistula Hypertension: blood pressure quite elevated at times responded to addition of amlodipine 10mg and hydralazine 100mg twice a day continue the metoprolol 25mg twice a day lasix increased to 20mg twice a day Anticoagulated on Coumadin please follow up for INR this week as dose reduced to 4mg Pending Studies at Discharge: Yes Studies:: serology studies for renal failure Stand-Alone Forms: My [facility] [employer], Smoking Cessation Medications and DC Order Prescriptions: New warfarin [Coumadin] 4 mg Tablet 4 mg PO DAILY@1600 30 Days Qty: 30 RF: 0 amlodipine 10 mg tablet 10 mg PO DAILY 30 Days Qty: 30 RF: 2 sodium bicarbonate 650 mg Tablet 650 mg PO BID 30 Days Qty: 60 RF: 2 calcium carbonate [Tums] 200 mg calcium (500 mg) Tablet,Chewable 500 mg PO TIDM 30 Days Qty: 75 RF: 0 hydralazine 50 mg Tablet 100 mg PO BID17 30 Days Qty: 60 RF: 2 furosemide 20 mg Tablet 20 mg PO BID 30 Days Qty: 60 RF: 2 Lantus Solostar U-100 Insulin 100 unit/mL (3 mL) Insulin Pen 15 unit subcut QDD 30 Days Qty: 4.5 RF: 2 Renal Caps 1 mg Capsule 1 cap PO QAM 30 Days Qty: 30 RF: 2 calcitriol 0.25 mcg Capsule 0.25 mcg PO MoWeFr@0900 30 Days Qty: 20 RF: 2 Continued (DME) lancets [OneTouch Delica Lancets] 33 gauge misc See Dose Instructions .ROUTE .MEDSUPPLY Qty: 400 RF: 5 metoprolol tartrate 25 mg tablet 25 mg PO BID Qty: 30 RF: 5 gabapentin 300 mg capsule 300 mg PO HS Qty: 30 RF: 5 gabapentin 100 mg capsule 100 mg PO QAM Qty: 30 RF: 5 (DME) pen needle, diabetic [BD Ultra-Fine [place] Pen Needle] 32 gauge x 5/32" needle See Dose Instructions .ROUTE .MEDSUPPLY Qty: 360 RF: 3 meclizine 12.5 mg tablet 12.5 mg PO TID PRN (Reason: Vertigo) Qty: 30 RF: 1 insulin lispro 100 unit/mL insulin pen 20 units subcut DAILY Qty: 7 RF: 0 (DME) OneTouch Verio strip See Dose Instructions .ROUTE .MEDSUPPLY Qty: 10 RF: 0 acetaminophen 325 mg tablet 650 mg PO Q4H PRN (Reason: fever or pain) RF: 0 atorvastatin 10 mg tablet 10 mg PO HS RF: 0 levothyroxine 112 mcg tablet 112 mcg PO QAM RF: 0 PreserVision AREDS [id number],[id number] Capsule 1 cap PO BID RF: 0 cholecalciferol (vitamin D3) [Vitamin D3] 2,000 unit Tablet 2,000 unit PO QAM RF: 0 Discontinued furosemide 20 mg tablet 20 mg PO DAILY Qty: 90 RF: 1 ciprofloxacin HCl 250 mg tablet 250 mg PO BID Qty: 10 RF: 0 warfarin 5 mg tablet 5 mg PO HS RF: 0 Lantus Solostar U-100 Insulin 100 unit/mL (3 mL) insulin pen 30 unit subcut QDD RF: 0 Discharge Orders: Discharge Order (Routine); Ordered 09/25/19 Ordered By: Manuel Recinos Admission Data Admit Date/Time: 09/16/19 20:25 Attending Provider: Manuel Recinos Admit Provider: Naheed Rangel Primary Care Provider: Mauri Hinojosa V. Other Providers: Naheed Rangel ; Sabino Palma ; Zion Westbrook Other Interventions: Discharge Summary Assessment (RN) Last Done: 09/25/19 12:38 DC Date/Time DO NOT enter until pt leaves facility: 09/25/19 14:19
[2019-09-27 21:01] LABS: ANCA Screen Negative (Negative); Anti Nuclear Antibody Screen NEGATIVE (NEGATIVE); Hepatitis C Vira RNA (Log) PCR <1.18 NOT DETECTED LOG IU/ML (<1.18); Hepatitis C Viral RNA by PCR <15 NOT DETECTED IU/ML (<15); Myeloperoxidase Ab <1.0 AI (<1.0); Proteinase-3 AB <1.0 AI (<1.0)
== END 2019-09-25 14:19 | disposition home or self-care (01) | DRG 673 ==
LOC: ED 16:03 → 2N 20:25 → SUATTDRO 20:25 → 2N 20:56 → 4W 09-23 16:51

== ENCOUNTER 2019-10-07 12:06 | Inpatient (IN) ==
--- NOTE | 2019-10-07 15:17 | XRay Report ---
XR chest 1V portable CLINICAL HISTORY: 89 years-old Female presenting with weakness. TECHNIQUE: Portable upright AP view of the chest was obtained. COMPARISON: 09/18/2019. FINDINGS: Dual lumen tunneled right internal jugular central venous catheter terminates in the SVC. Atheroscler osis of the aortic arch. Cardiac silhouette enlarged. Mild added density in the lung bases greatest i n the right infrahilar region. This is similar to prior exam. No new focal opacity. No large effusion or pneumothorax. Posttraumatic deformity of the right humerus. Upper abdomen normal. IMPRESSION: 1. Apparent added density in the lung bases greater on the right may relate to overlapping soft tiss ue versus less likely mild edema or atelectasis. This finding is unchanged from prior exam. No other convincing evidence of acute cardiopulmonary disease. 2. Cardiomegaly. Electronically signed by: Adiel Pulido M.D. 10/07/2019 3:16 PM
[2019-10-07 16:03] LABS: Basophils # (auto) 0.04 K/uL (0-0.2); Basophils % (auto) 0.3 %; Eosinophils # (auto) 0.41 K/uL (0-0.5); Eosinophils % (auto) 3.6 %; Hematocrit (blood only) 31.5 % (37-47); Hemoglobin 10.2 g/dL (12.0-16.0); Immature Granulocytes # (auto) 0.06 K/uL (0.00-0.02); Immature Granulocytes % (auto) 0.5 %; Lymphocytes # (auto) 2.94 K/uL (1.2-3.4); Lymphocytes % (auto) 25.6 %; Mean Corpuscular Hemoglobin 31.4 pg (25-34); Mean Corpuscular Hgb Conc 32.4 g/dL (32-36); Mean Corpuscular Volume 96.9 fL (80-100); Mean Platelet Volume 10.5 fL (7.4-10.4); Monocytes % (auto) 13.1 %; Neutrophils # (auto) 6.53 K/uL (1.4-6.5); Neutrophils % (auto) 56.9 %; Platelet Count 306 K/uL (130-400); RDW Standard Deviation 53.1 fL (36.4-46.3); Red Blood Count 3.25 M/uL (4.2-5.4); White Blood Count 11.48 K/uL (4.8-10.8)
--- NOTE | 2019-10-07 16:14 | CT Scan Report ---
CT head/brain wo con CLINICAL HISTORY: Weakness COMPARISON STUDY: December 17, 2018 TECHNIQUE: Axial CT of the brain is performed from the vertex to the skull base. IV contrast was not administered for this examination. A dose lowering technique was utilized adhering to the principles of ALARA. CT DOSE: 537.48 mGy.cm FINDINGS: No intra or extra-axial mass lesions are visualized. There is no CT evidence of acute cortical infarc tion. There is no evidence of midline shift. There is no acute hemorrhage. No calvarial fractures ar e visualized. There are patchy white matter hypodensities likely on a small vessel basis. There is no evidence of pathologic ventricular dilatation. There is chronic opacification of the right sphenoid. This contains hyperdense elements raising the p ossibility of a fungal component. IMPRESSION: 1. No change from the preceding study 2. Stable opacification of the right sphenoid sinus 3. No acute intracranial findings Electronically signed by: Cristóbal Davis M.D. 10/07/2019 4:13 PM
[2019-10-07 16:40] LABS: Alanine Aminotransferase 19 U/L (12-78); Albumin Globulin Ratio 0.8 (0.9-2); Albumin Level 3.3 gm/dl (3.4-5.0); Alkaline Phosphatase 105 U/L (45-117); Aspartate Aminotransferase 27 U/L (15-37); BUN Creatinine Ratio 7.1 (10-20); Bilirubin,Total 0.5 mg/dl (0.2-1); Blood Urea Nitrogen 45 mg/dl (7-18); Calcium 9.4 mg/dl (8.5-10.1); Carbon Dioxide 30 mmol/L (21-32); Chloride 100 mmol/L (98-107); Creatine Kinase 50 U/L (26-192); Creatine Kinase MB < 1.0 ng/ml (0.5-3.6); Est GFR (African American) 6.2; Est GFR (Non-African American) 5.3; Globulin 4.2 gm/dl (2.5-4.0); Glucose 96 mg/dl (70-99); Potassium 3.8 mmol/L (3.5-5.1); Sodium 139 mmol/L (136-145); Total Protein 7.5 gm/dl (6.4-8.2); Troponin I 0.018 ng/ml (0-0.045)
[2019-10-07 16:55] LABS: T4 Free Thyroxine 1.25 ng/dl (0.8-1.6)
[2019-10-07] MEDS ORDERED: cefTRIAXone SODIUM 2,000 MG/70 ML BAG IV STA (17:13)
[2019-10-07 17:27] LABS: Appearance Urine Turbid (Clear); Bacteria Urine Automated 4+ (Negative); Bilirubin Urine Negative (Negative); Blood Urine 2+ (Negative); Color Urine Dark Yellow; Glucose Urine UA Negative (Negative); Ketones Urine Trace (Negative); Leukocyte Esterase Urine 3+ (Negative); Nitrite Urine Negative (Negative); Protein Urine 3+ (Negative); Specific Gravity Urine 1.018 (1.000-1.030); Urobilinogen Urine Negative (Negative); WBC Urine Automated >30 /hpf (0-5)
--- NOTE | 2019-10-07 17:55 | Emergency Department Note ---
Entered by Canidda Whittington acting as a scribe for Braden Meeks MD History of Present Illness General Chief complaint: Illness Stated complaint: DIABETES,CRAMPS, PROBLEMS WITH BP, ON DIALYSIS Time Seen by Provider: 10/07/19 13:56 Source: patient History of Present Illness Provider complaint: Illness Onset (ago): week(s) 1 Radiation: non-radiation Relieved By: + none Exacerbated By: + movement Associated symptoms: + fever/chills (Negative fever. Positive chills. ), + loss of appetite, + weakness and + other (Cramps) The patient is a 89 year old female who presents to the Emergency Room with complaints of an illness that began 1 week ago. The patient states that she just started dialysis 1 week ago but did not go today. The patient's daughter states that the patient has dialysis on Tuesdays, , and Saturdays. The patient states the pain does not radiate anywhere else on her body and is exacerbated by movement but not relieved by anything specific. The patient reports experiencing loss of appetite and weakness from the dialysis. Additionally, the patient reports experiencing cramps and chills but denies a fever. The patient's daughter notes that the patient had a fall about 1 week ago and that the patient is a diabetic. Home Medications Home Medications Medication Instructions Recorded Confirmed Type PreserVision AREDS 1 cap PO BID 12/17/18 10/07/19 History atorvastatin 10 mg PO HS 12/17/18 10/07/19 History cholecalciferol (vitamin D3) 2,000 unit PO QAM 12/17/18 10/07/19 History [Vitamin D3] lancets 33 gauge #400 ea 04/03/19 10/07/19 Rx acetaminophen 325 mg tablet 650 mg PO Q4H PRN tab 07/31/19 10/07/19 History blood sugar diagnostic #10 ea 07/31/19 10/04/19 History insulin lispro 100) 100 unit/mL 20 units SUBCUT DAILY #7 ml 07/31/19 10/07/19 H istory subcutaneous pen gabapentin 100 mg capsule 100 mg PO QAM #30 cap 08/22/19 10/07/19 Rx gabapentin 300 mg capsule 300 mg PO HS #30 cap 08/22/19 10/07/19 Rx pen needle, diabetic 32 gauge x #360 ea 08/22/19 10/07/19 Rx 5/32" meclizine 12.5 mg tablet 12.5 mg PO TID PRN #30 tab 09/09/19 10/07/19 Rx B complex with C 20-folic acid 1 cap PO QAM 30 Days #30 cap 09/25/19 10/07/19 Rx [Renal Caps] amlodipine 10 mg PO DAILY 30 Days #30 tab 09/25/19 10/07/19 Rx calcitriol 0.25 mcg PO MoWeFr@0900 30 Days 09/25/19 10/07/19 Rx #20 cap calcium carbonate [Tums] 500 mg PO TIDM 30 Days #75 tab 09/25/19 10/07/19 Rx furosemide 20 mg PO BID 30 Days #60 tab 09/25/19 10/07/19 Rx insulin glargine [Lantus Solostar 15 unit SUBCUT QDD 30 Days #4.5 ml 09/25/19 10/07/19 Rx U-100 Insulin] warfarin [Coumadin] 4 mg PO DAILY@1600 30 Days #30 tab 09/25/19 10/07/19 Rx levothyroxine 112 mcg tablet 112 mcg PO QAM #30 tab 09/30/19 10/07/19 Rx metoprolol tartrate 25 mg tablet 25 mg PO BID #30 tab 09/30/19 10/07/19 Rx hydralazine 100 mg PO BID 10/07/19 10/07/19 History sodium bicarbonate 650 mg PO .ON HOLD 10/07/19 10/07/19 History Allergies Allergy/AdvReac Type Severity Reaction Status Date / Time No Known Allergies Allergy Unverified 10/07/19 16:17 Past Med/Surg History Medical History Anemia in chronic kidney disease (CKD) Arthritis (Chronic) Basosquamous carcinoma of skin Closed fracture of shaft of humerus (Resolved 04/09/11) End stage renal disease Hematuria Pericardial effusion (Resolved) Pulmonary infiltrate Surgical History S/P dilation and curettage Family History Mother Diabetes Hypertension Macular degeneration Hypothyroidism Social History Preferred Language: Yoruba Communication Ability: Effective Visual Impairment: No Limitations Hearing Ability: Normal Medical Stenographer Required: No Beliefs That Will Affect Care: None marital status: Current Living Situation: Spouse Current Living Situation Comment: split level home current occupational status: retired Other Information That Helps Us Care for You: No Feels Safe at Home: Yes Safety Concerns: Feels Safe At This Time Smoking Status: Never smoker Second Hand Exposure: No ; Hx Alcohol Use: No Hx Substance Use: No Childhood Exposure to Second-Hand Smoke: No Seatbelt Use: always Review of Systems See HPI for pertinent positives & negatives. and A total of 10 systems reviewed and were otherwise negative Physical Exam Vital Signs Vital Signs - 24 hr 10/07/19 12:16 10/07/19 14:07 10/07/19 14:20 Temperature 36.7 C Temperature Source Oral Pulse Rate 60 62 Pulse Rate [Apical] 78 Pulse Rate from SpO2 Sensor Pulse Rhythm Regular Pulse Strength Normal Respiratory Rate 20 16 15 Respiratory Effort / Characteristics Non-Labored Spontaneous Respiratory Depth Normal Respiratory Pattern Regular Blood Pressure 110/60 129/56 L Blood Pressure [Left Arm] 129/56 L Blood Pressure Mean 76 90 Blood Pressure Mean [Left Arm] 80 Blood Pressure Position Sitting Pulse Oximetry 95 94 Oxygen Delivery Method Room Air Room Air Room Air Sepsis Recent Fever Within 48 Hours No Sepsis Action Taken by Nursing No Action Required 10/07/19 15:05 10/07/19 15:06 10/07/19 15:10 Temperature Temperature Source Pulse Rate 59 L 59 L Pulse Rate [Apical] Pulse Rate from SpO2 Sensor Pulse Rhythm Pulse Strength Respiratory Rate 21 26 H Respiratory Effort / Characteristics Respiratory Depth Respiratory Pattern Blood Pressure Blood Pressure [Left Arm] Blood Pressure Mean Blood Pressure Mean [Left Arm] Blood Pressure Position Pulse Oximetry 94 Oxygen Delivery Method Room Air Room Air Room Air Sepsis Recent Fever Within 48 Hours Sepsis Action Taken by Nursing 10/07/19 15:20 10/07/19 15:30 10/07/19 15:40 Temperature Temperature Source Pulse Rate 59 L 63 64 Pulse Rate [Apical] Pulse Rate from SpO2 Sensor Pulse Rhythm Pulse Strength Respiratory Rate 23 17 19 Respiratory Effort / Characteristics Respiratory Depth Respiratory Pattern Blood Pressure Blood Pressure [Left Arm] Blood Pressure Mean Blood Pressure Mean [Left Arm] Blood Pressure Position Pulse Oximetry Oxygen Delivery Method Room Air Room Air Room Air Sepsis Recent Fever Within 48 Hours Sepsis Action Taken by Nursing 10/07/19 15:50 10/07/19 16:22 10/07/19 16:23 Temperature Temperature Source Pulse Rate 61 66 Pulse Rate [Apical] 65 Pulse Rate from SpO2 Sensor 65 Pulse Rhythm Pulse Strength Respiratory Rate 17 18 14 Respiratory Effort / Characteristics Respiratory Depth Respiratory Pattern Blood Pressure 136/57 L Blood Pressure [Left Arm] 136/57 L Blood Pressure Mean 79 Blood Pressure Mean [Left Arm] 83 Blood Pressure Position Pulse Oximetry 95 96 Oxygen Delivery Method Room Air Room Air Room Air Sepsis Recent Fever Within 48 Hours Sepsis Action Taken by Nursing 10/07/19 16:30 10/07/19 16:31 10/07/19 16:40 Temperature Temperature Source Pulse Rate 62 65 63 Pulse Rate [Apical] Pulse Rate from SpO2 Sensor 62 64 63 Pulse Rhythm Pulse Strength Respiratory Rate 21 15 18 Respiratory Effort / Characteristics Respiratory Depth Respiratory Pattern Blood Pressure 149/61 H Blood Pressure [Left Arm] Blood Pressure Mean 91 Blood Pressure Mean [Left Arm] Blood Pressure Position Pulse Oximetry 95 96 94 Oxygen Delivery Method Room Air Room Air Room Air Sepsis Recent Fever Within 48 Hours Sepsis Action Taken by Nursing 10/07/19 16:50 10/07/19 17:00 10/07/19 17:10 Temperature Temperature Source Pulse Rate 61 59 L 61 Pulse Rate [Apical] Pulse Rate from SpO2 Sensor 61 60 61 Pulse Rhythm Pulse Strength Respiratory Rate 11 L 16 24 Respiratory Effort / Characteristics Respiratory Depth Respiratory Pattern Blood Pressure 132/52 L Blood Pressure [Left Arm] Blood Pressure Mean 78 Blood Pressure Mean [Left Arm] Blood Pressure Position Pulse Oximetry 95 96 95 Oxygen Delivery Method Room Air Room Air Room Air Sepsis Recent Fever Within 48 Hours Sepsis Action Taken by Nursing 10/07/19 17:20 10/07/19 17:30 Temperature Temperature Source Pulse Rate 61 60 Pulse Rate [Apical] Pulse Rate from SpO2 Sensor 60 60 Pulse Rhythm Pulse Strength Respiratory Rate 16 19 Respiratory Effort / Characteristics Respiratory Depth Respiratory Pattern Blood Pressure 142/58 H Blood Pressure [Left Arm] Blood Pressure Mean 96 Blood Pressure Mean [Left Arm] Blood Pressure Position Pulse Oximetry 95 95 Oxygen Delivery Method Room Air Room Air Sepsis Recent Fever Within 48 Hours Sepsis Action Taken by Nursing GENERAL: Awake, alert, well-appearing, in no acute distress. Falling asleep on exam. HENT: Normocephalic, atraumatic. Oropharynx unremarkable. EYES: Normal conjunctiva. Sclera non-icteric. NECK: Supple. No nuchal rigidity. FROM. No JVD. RESPIRATORY: Clear to auscultation. CARDIAC: Regular rate, normal rhythm. Extremities warm and well perfused. Pulses equal. ABDOMEN: Soft, non-distended. No tenderness to palpation. No rebound or guarding. No masses. RECTAL: Deferred. MUSCULOSKELETAL: Chest examination reveals no tenderness. The back is symmetrical on inspection without obvious abnormality. There is no CVA tenderness to palpation. No joint edema. LOWER EXTREMITIES: Calves are equal size bilaterally and non-tender. No edema. No discoloration. NEURO: Normal sensorium. No sensory or motor deficits noted. SKIN: No rash or jaundice noted. Course Course 1431: Past medical records reviewed. The patient was evaluated in room A02. A complete history and physical exam was performed. 1733: I spoke with Dr. Ojeda- Hospitalist about the patient's case and he will accept the patient for further evaluation. Administered Medications Acetaminophen (Tylenol) 650 mg PO Q4H PRN PRN Reason: fever or pain Stop: 11/06/19 20:50 Last Admin: 10/08/19 05:06 Dose: 650 mg Documented by: [id number] Admin: 10/07/19 23:11 Dose: 650 mg Documented by: [id number] Amlodipine Besylate (Norvasc) 10 mg PO DAILY REYMUNDO Stop: 11/07/19 08:59 Last Admin: 10/08/19 10:39 Dose: Not Given Documented by: [id number] Atorvastatin Calcium (Lipitor) 10 mg PO HS REYMUNDO Stop: 11/06/19 20:59 Last Admin: 10/07/19 22:22 Dose: 10 mg Documented by: [id number] Calcium Carbonate (Tums) 500 mg PO TIDM REYMUNDO Stop: 11/07/19 07:59 Last Admin: 10/08/19 18:07 Dose: 500 mg Documented by: [id number] Admin: 10/08/19 12:34 Dose: 500 mg Documented by: [id number] Admin: 10/08/19 07:58 Dose: 500 mg Documented by: [id number] Furosemide (Lasix) 20 mg PO BID17 REYMUNDO Stop: 11/06/19 20:59 Last Admin: 10/08/19 18:06 Dose: 20 mg Documented by: [id number] Admin: 10/08/19 10:38 Dose: Not Given Documented by: [id number] Admin: 10/07/19 22:22 Dose: 20 mg Documented by: [id number] Gabapentin (Neurontin) 100 mg PO QAM [facility] Stop: 11/07/19 08:59 Last Admin: 10/08/19 07:58 Dose: 100 mg Documented by: [id number] Gabapentin (Neurontin) 300 mg PO HS REYMUNDO Stop: 11/06/19 20:59 Last Admin: 10/07/19 22:22 Dose: 300 mg Documented by: [id number] Hydralazine HCl (Apresoline) 100 mg PO BID REYMUNDO Stop: 11/06/19 20:59 Last Admin: 10/08/19 10:38 Dose: Not Given Documented by: [id number] Admin: 10/07/19 22:22 Dose: 100 mg Documented by: [id number] Ceftriaxone Sodium 2,000 mg/ (Dextrose) 70 mls @ 140 mls/hr IV Q24H REYMUNDO Stop: 10/16/19 18:29 Last Admin: 10/08/19 19:00 Dose: 140 mls/hr Documented by: [id number] Insulin Aspart (Novolog Flexpen) 0 units SC ACHS [facility] Stop: 11/06/19 20:59 Last Admin: 10/08/19 18:45 Dose: Not Given Documented by: [id number] Cosigned by: [id number] Admin: 10/08/19 12:05 Dose: 7 units Documented by: [id number] Cosigned by: [id number] Admin: 10/08/19 07:56 Dose: 5 units Documented by: [id number] Cosigned by: [id number] Admin: 10/07/19 22:58 Dose: Not Given Documented by: [id number] Cosigned by: [id number] Insulin Glargine (Lantus Solostar Pen) 15 units SQ DAILY REYMUNDO Stop: 11/07/19 08:59 Last Admin: 10/08/19 07:57 Dose: 15 units Documented by: [id number] Cosigned by: [id number] Levothyroxine Sodium (Synthroid) 112 mcg PO DAILYBB REYMUNDO Stop: 11/07/19 06:29 Last Admin: 10/08/19 06:40 Dose: 112 mcg Documented by: [id number] Metoprolol Tartrate (Lopressor) 25 mg PO BID REYMUNDO Stop: 11/06/19 20:59 Last Admin: 10/08/19 08:59 Dose: Not Given Documented by: [id number] Admin: 10/07/19 22:22 Dose: 25 mg Documented by: [id number] Multivitamins/Minerals (Multivitamin W/ Minerals Tab) 1 tab PO DAILY [facility] Stop: 11/07/19 08:59 Last Admin: 10/08/19 07:58 Dose: 1 tab Documented by: [id number] Vitamin B Complex/Folic Acid (Nephrocaps) 1 cap PO QAM [facility] Stop: 11/07/19 08:59 Last Admin: 10/08/19 07:58 Dose: 1 cap Documented by: [id number] Vitamin B Complex/Folic Acid (Nephrocaps) [facility] [place] Stop: 11/07/19 10:59 Last Admin: 10/08/19 12:34 Dose: 1 cap Documented by: [id number] Vitamin D (Vitamin D3) 2,000 units PO QAM [facility] Stop: 11/07/19 08:59 Last Admin: 10/08/19 07:58 Dose: 2,000 units Documented by: [id number] Warfarin Sodium (Coumadin) 4 mg PO DAILY@1600 [facility] Stop: 11/07/19 15:59 Last Admin: 10/08/19 18:05 Dose: 4 mg Documented by: [id number] Discontinued Medications Epoetin Rick (Procrit) 10,000 units IV TODAY@1100 [facility] Stop: 10/08/19 16:00 Last Admin: 10/08/19 14:22 Dose: 10,000 units Documented by: [id number] Heparin Sodium (Porcine) (Heparin Iv Bolus) 2,000 units IV TODAY@1100 [facility] Stop: 10/08/19 16:00 Last Admin: 10/08/19 14:20 Dose: Not Given Documented by: [id number] Heparin Sodium (Porcine) (Heparin Iv Bolus) 500 units IV TODAY@1100,1200 [facility] Stop: 10/08/19 16:00 Last Admin: 10/08/19 18:01 Dose: Not Given Documented by: [id number] Admin: 10/08/19 14:21 Dose: Not Given Documented by: [id number] Ceftriaxone Sodium (Rocephin) 2,000 mg in 70 mls @ 140 mls/hr IV NOW [facility] Stop: 10/07/19 17:42 Last Infusion: 10/07/19 18:15 Dose: 0 mls/hr Documented by: [id number] Admin: 10/07/19 17:36 Dose: 140 mls/hr Documented by: [id number] Miscellaneous (Patient's Height And/Or Weight Needed) 1 ea N/A Q2H [facility]UNDO Stop: 11/06/19 21:29 Last Admin: 10/07/19 23:18 Dose: Not Given Documented by: [id number] Medical Decision Making Differential Diagnosis Differential Diagnosis includes but is not limited to dehydration, stroke, anemia, hypoglycemia, hyponatremia, hypernatremia, urinary tract infection, pneumonia, bronchitis, sepsis, gastroenteritis, additional abdominal pathology, metabolic abnormalities and infections. Medical Records Attestation: I reviewed the patient's medical records. Home Medications Current Medication List: was personally reviewed by me Laboratory Data Attestation: I reviewed the patient's lab results. Result diagrams: 10/08/19 06:47 10/08/19 06:47 Lab Results 10/07/19 10/07/19 10/07/19 Range/Units 12:21 15:53 15:53 WBC 11.48 H (4.8-10.8) K/uL RBC 3.25 L (4.2-5.4) M/uL Hgb 10.2 L (12.0-16.0) g/dL Hct 31.5 L (37-47) % MCV 96.9 (80-100) fL MCH 31.4 (25-34) pg MCHC 32.4 (32-36) g/dL RDW Std Deviation 53.1 H (36.4-46.3) fL RDW Coeff of Jon 15.0 H (11.5-14.5) % Plt Count 306 (130-400) K/uL MPV 10.5 H (7.4-10.4) fL Immature Gran % (Auto) 0.5 % Neut % (Auto) 56.9 % Lymph % (Auto) 25.6 % Treg[place] % (Auto) 13.1 % Eos % (Auto) 3.6 % Baso % (Auto) 0.3 % Immature Gran # (Auto) 0.06 H (0.00-0.02) K/uL Neut # (Auto) 6.53 H (1.4-6.5) K/uL Lymph # (Auto) 2.94 (1.2-3.4) K/uL [place] # (Auto) 1.50 H (0.11-0.59) K/uL Eos # (Auto) 0.41 (0-0.5) K/uL Baso # (Auto) 0.04 (0-0.2) K/uL Sodium 139 (136-145) mmol/L Potassium 3.8 (3.5-5.1) mmol/L Chloride 100 (98-107) mmol/L Carbon Dioxide 30 (21-32) mmol/L Anion Gap 9.0 (3-11) BUN 45 H (7-18) mg/dl Creatinine 6.39 H* (0.6-1.2) mg/dl Est Cr Clr Drug Dosing Not Reportable Est GFR ( Amer) 6.2 Est GFR (Non-Af Amer) 5.3 BUN/Creatinine Ratio 7.1 L (10-20) Glucose 96 (70-99) mg/dl POC Glucose 88 (70-99) Calcium 9.4 (8.5-10.1) mg/dl Total Bilirubin 0.5 (0.2-1) mg/dl AST 27 (15-37) U/L ALT 19 (12-78) U/L Alkaline Phosphatase 105 (45-117) U/L Total Creatine Kinase 50 (26-192) U/L CK-MB (CK-2) < 1.0 (0.5-3.6) ng/ml CK/CKMB % Calc TNP Troponin I 0.018 (0-0.045) ng/ml Total Protein 7.5 (6.4-8.2) gm/dl Albumin 3.3 L (3.4-5.0) gm/dl Globulin 4.2 H (2.5-4.0) gm/dl Albumin/Globulin Ratio 0.8 L (0.9-2) TSH 4.900 H (0.300-4.500) uIu/ml Free T4 1.25 (0.8-1.6) ng/dl Urine Color Urine Appearance (Clear) Urine pH (4.5-7.5) Ur Specific [place] (1.000-1.030) Urine Protein (Negative) Urine Glucose (UA) (Negative) Urine Ketones (Negative) Urine Blood (Negative) Urine Nitrite (Negative) Urine Bilirubin (Negative) Urine Urobilinogen (Negative) Ur Leukocyte Esterase (Negative) Urine WBC (Auto) (0-5) /hpf Urine RBC (Auto) (0-4) /hpf U Hyaline Cast (Auto) (0-5) /lpf U Epithel Cells (Auto) (0-5) /lpf Urine Bacteria (Auto) (Negative) Urine Yeast 10/07/19 Range/Units 17:09 WBC (4.8-10.8) K/uL RBC (4.2-5.4) M/uL Hgb (12.0-16.0) g/dL Hct (37-47) % MCV (80-100) fL MCH (25-34) pg MCHC (32-36) g/dL RDW Std Deviation (36.4-46.3) fL RDW Coeff of Jon (11.5-14.5) % Plt Count (130-400) K/uL MPV (7.4-10.4) fL Immature Gran % (Auto) % Neut % (Auto) % Lymph % (Auto) % Treg[place] % (Auto) % Eos % (Auto) % Baso % (Auto) % Immature Gran # (Auto) (0.00-0.02) K/uL Neut # (Auto) (1.4-6.5) K/uL Lymph # (Auto) (1.2-3.4) K/uL Treg[place] # (Auto) (0.11-0.59) K/uL Eos # (Auto) (0-0.5) K/uL Baso # (Auto) (0-0.2) K/uL Sodium (136-145) mmol/L Potassium (3.5-5.1) mmol/L Chloride (98-107) mmol/L Carbon Dioxide (21-32) mmol/L Anion Gap (3-11) BUN (7-18) mg/dl Creatinine (0.6-1.2) mg/dl Est Cr Clr Drug Dosing Est GFR ( Amer) Est GFR (Non-Af Amer) BUN/Creatinine Ratio (10-20) Glucose (70-99) mg/dl POC Glucose (70-99) Calcium (8.5-10.1) mg/dl Total Bilirubin (0.2-1) mg/dl AST (15-37) U/L ALT (12-78) U/L Alkaline Phosphatase (45-117) U/L Total Creatine Kinase (26-192) U/L CK-MB (CK-2) (0.5-3.6) ng/ml CK/CKMB % Calc Troponin I (0-0.045) ng/ml Total Protein (6.4-8.2) gm/dl Albumin (3.4-5.0) gm/dl Globulin (2.5-4.0) gm/dl Albumin/Globulin Ratio (0.9-2) TSH (0.300-4.500) uIu/ml Free T4 (0.8-1.6) ng/dl Urine Color Dark Yellow Urine Appearance Turbid A (Clear) Urine pH 6.0 (4.5-7.5) Ur Specific [place] 1.018 (1.000-1.030) Urine Protein 3+ H (Negative) Urine Glucose (UA) Negative (Negative) Urine Ketones Trace H (Negative) Urine Blood 2+ H (Negative) Urine Nitrite Negative (Negative) Urine Bilirubin Negative (Negative) Urine Urobilinogen Negative (Negative) Ur Leukocyte Esterase 3+ H (Negative) Urine WBC (Auto) >30 H (0-5) /hpf Urine RBC (Auto) 5-10 H (0-4) /hpf U Hyaline Cast (Auto) 1-5 (0-5) /lpf U Epithel Cells (Auto) 5-10 H (0-5) /lpf Urine Bacteria (Auto) 4+ H (Negative) Urine Yeast Not Reportable Imaging Data Radiologist's Impression: Radiology results as stated below per my review and the radiologist's interpretation: XR chest 1V portable CLINICAL HISTORY: 89 years-old Female presenting with weakness. TECHNIQUE: Portable upright AP view of the chest was obtained. COMPARISON: 09/18/2019. FINDINGS: Dual lumen tunneled right internal jugular central venous catheter terminates in the SVC. Atherosclerosis of the aortic arch. Cardiac silhouette enlarged. Mild added density in the lung bases greatest in the right infrahilar region. This is similar to prior exam. No new focal opacity. No large effusion or pneumothorax. Posttraumatic deformity of the right humerus. Upper abdomen normal. IMPRESSION: 1. Apparent added density in the lung bases greater on the right may relate to overlapping soft tissue versus less likely mild edema or atelectasis. This finding is unchanged from prior exam. No other convincing evidence of acute cardiopulmonary disease. 2. Cardiomegaly. Electronically signed by: Adiel Pulido M.D. 10/07/2019 3:[address] head/brain wo con CLINICAL HISTORY: Weakness COMPARISON STUDY: December 17, 2018 TECHNIQUE: Axial CT of the brain is performed from the vertex to the skull base. IV contrast was not administered for this examination. A dose lowering technique was utilized adhering to the principles of ALARA. CT DOSE: 537.48 mGy.cm FINDINGS: No intra or extra-axial mass lesions are visualized. There is no CT evidence of acute cortical infarction. There is no evidence of midline shift. There is no acute hemorrhage. No calvarial fractures are visualized. There are patchy white matter hypodensities likely on a small vessel basis. There is no evidence of pathologic ventricular dilatation. There is chronic opacification of the right sphenoid. This contains hyperdense elements raising the possibility of a fungal component. IMPRESSION: 1. No change from the preceding study 2. Stable opacification of the right sphenoid sinus 3. No acute intracranial findings Electronically signed by: Cristóbal Davis M.D. 10/07/2019 4:13 PM ECG Data Attestation: I personally reviewed and interpreted this ECG as follows: Indication: + other (Illness) Rate (beats per minute): 60 Rhythm: + normal sinus ECG Intervals/blocks: + Normal QT-c (QTC 456) ECG ST segments: + T-wave inversions (Lateral) ECG Findings: + Other (Old inferior infarct) Comparison ECG Date: from (07/22/16) Change: no significant change Blood Pressure Blood Pressure Findings: Low blood pressure Blood Pressure Disposition: further management by hospitalist [facility] Narrative This is an 89-year-old female who presents the emergency department complaining of generalized weakness that has been ongoing since she started dialysis approximately 1 week ago. She does appear to have a urinary tract infection. For this reason she was started on 2 g of Rocephin. As the patient is unable to walk I did discuss the case with the hospitalist service who did agree to admit the patient. Patient family were in agreement with the treatment plan. Impression & Plan Anticoagulated on Coumadin, Weakness, Urinary tract infection, ESRD (end stage renal disease) on dialysis Discharge Plan Visit Data *Final* Discharge Date/Time: 10/07/19 20:24 Chief Complaint: Illness Stated Complaint: DIABETES,CRAMPS, PROBLEMS WITH BP, ON DIALYSIS ED Provider: Braden Meeks Discharge Problem: Anticoagulated on Coumadin, Weakness, Urinary tract infection, ESRD (end stage renal disease) on dialysis Patient Disposition: Admitted As Inpatient Discharge Instructions Interventions: ED Discharge Assessment Last Done: 10/07/19 20:24 Discharge Problem: Urinary tract infection Qualifiers: Urinary tract infection type: site unspecified Hematuria presence: without hematuria Qualified Code(s): N39.0 - Urinary tract infection, site not specified The scribe's documentation has been prepared under my direction and personally reviewed by me in its entirety. I confirm that the note above accurately reflects all work, treatment, procedures, and medical decision making performed by me.
--- NOTE | 2019-10-07 18:57 | History & Physical Report ---
Date of Service October 07, 2019 Assessment & Plan (1) Weakness: 89-year-old female was admitted on 07 October 2019 for weakness and suspected UTI. Of note, patient was hospitalized from September 16-2018 for similar symptoms. Weakness: Unclear exactly when this started or if it improved since her hospital discharge. Has multiple baseline chronic medical conditions and deconditioning. Patient previously declined assisted living. - In ED, initial temp 35. Borderline bradycardia, mild hypertension, okay room SpO2. WBC 11. TnI 0.018 and EKG NSR 60 with NH [address] head is non-acute. pCXR not suggestive of an acute infiltrate. - Will trend TnI as a precaution. Check non-portable two view CXR (to get better image). Ordered blood cultures (though after received antibiotics in ED) and check procalcitonin. UTI, ESRD on dialysis: Usually on [facility] dialysis, last two days ago. Tunneled hemodialysis catheter placed on 26Nov. - At home is on renal caps, calcitriol, vitamin D. - In ED, UA appears turbid with positive WBCs, bacteria, and some RBCs. UCx sent. Most recent positive UCx in the system was 11Nov for spears-sensitive proteus. Does have a history of ESBL E coli back in December. - In ED, treated with ceftriaxone 2 grams IV x1. - Will continue with ceftriaxone 1 gram IV q 24h. Await urine sensitivities. Consult nephrology. Incidental CT finding: - Suggestion of chronic opacification of the right sphenoid, question fungal component. Ongoing medical issues: - Hypertension, Hyperlipidemia: Continue home amlodipine, atorvastatin, Lasix, hydralazine, metoprolol. - Paroxysmal atrial fibrillation: Continue home Coumadin and metoprolol. Check INR. - Diabetes: At home is on Lantus and lispro. We will continue with Lantus and add insulin sliding scale. - Diabetic neuropathy: Continue home gabapentin. - Gait disturbance, gout: CT head noted patchy white matter hypodensities likely on a small vessel basis. Continue home meclizine as needed. Previous leg pain during last admission was treated/improved with Tylenol and heating pad. Continue the same here. - Anemia: Admit hemoglobin 10.2, baseline around the same or a little lower. - Hypothyroidism: Admit TSH 4.9. Continue home levothyroxine. Code status: Full code (per patient wishes). Diet: Renal. DVT prophy: Coumadin. PT/OT: Consulted. Disbo: Admit to [facility] telemetry. Case management consulted for further disposition discussions. (2) Urinary tract infection: (3) ESRD (end stage renal disease) on dialysis: (4) Opacified sphenoid sinus: (5) Hypertension: (6) Hyperlipidemia: (7) Paroxysmal atrial fibrillation: (8) Diabetes mellitus with diabetic neuropathy: (9) Gait disturbance: (10) Gout: (11) Anemia: (12) Hypothyroidism: History of Present Illness Primary Care Provider: Mauri Hinojosa MD 89-year-old female presents for feeling of generalized fatigue and weakness. Unclear how long this is been occurring, perhaps 1 to 2 weeks per the patient. [Of note, patient was discharged from the hospital on September 25 for very similar symptoms.] She is not really volunteering any information but will answer questions slowly. At the time of this H&P, her daughter is not present. Patient states that she gets cramps in her right foot/leg that are improved by a heating pad and Tylenol. She notes some loose stools yesterday but none today. Denies vomiting or abdominal symptoms. When mentioned that she may have a UTI, she wonders why because she has no pain with urination. Otherwise she denies any chest pain, cough or difficulty breathing, or other focal concerns. She asks if she will undergo some level of inpatient rehabilitation because she wants to go home. - Past medical history includes hypertension, hyperlipidemia, paroxysmal atrial fibrillation, diabetes, diabetic neuropathy gait disturbance, anemia, hypothyroidism, arthritis, right humerus fracture, hematuria, pneumonia, pleural effusion, pericardial effusion, end-stage renal disease on dialysis, gout, dizziness, decreased vision/macular degeneration - Past surgical history includes D&C, cholecystectomy, Mohs surgery - Social history includes never smoking. Denies alcohol use. Lives at home with , daughter from [place] is visiting. Allergies Allergy/AdvReac Type Severity Reaction Status Date / Time No Known Allergies Allergy Unverified 10/07/19 16:17 Home Medications Home Medications Medication Instructions Recorded Confirmed Type PreserVision AREDS 1 cap PO BID 12/17/18 10/07/19 History atorvastatin 10 mg PO HS 12/17/18 10/07/19 History cholecalciferol (vitamin D3) 2,000 unit PO QAM 12/17/18 10/07/19 History [Vitamin D3] lancets 33 gauge #400 ea 04/03/19 10/07/19 Rx acetaminophen 325 mg tablet 650 mg PO Q4H PRN tab 07/31/19 10/07/19 History blood sugar diagnostic #10 ea 07/31/19 10/04/19 History insulin lispro 100) 100 unit/mL 20 units SUBCUT DAILY #7 ml 07/31/19 10/07/19 History subcutaneous pen gabapentin 100 mg capsule 100 mg PO QAM #30 cap 08/22/19 10/07/19 Rx gabapentin 300 mg capsule 300 mg PO HS #30 cap 08/22/19 10/07/19 Rx pen needle, diabetic 32 gauge x #360 ea 08/22/19 10/07/19 Rx 5/32" meclizine 12.5 mg tablet 12.5 mg PO TID PRN #30 tab 09/09/19 10/07/19 Rx B complex with C 20-folic acid 1 cap PO QAM 30 Days #30 cap 09/25/19 10/07/19 Rx [Renal Caps] amlodipine 10 mg PO DAILY 30 Days #30 tab 09/25/19 10/07/19 Rx calcitriol 0.25 mcg PO MoWeFr@0900 30 Days 09/25/19 10/07/19 Rx #20 cap calcium carbonate [Tums] 500 mg PO TIDM 30 Days #75 tab 09/25/19 10/07/19 Rx furosemide 20 mg PO BID 30 Days #60 tab 09/25/19 10/07/19 Rx insulin glargine [Lantus Solostar 15 unit SUBCUT QDD 30 Days #4.5 ml 09/25/19 10/07/19 Rx U-100 Insulin] warfarin [Coumadin] 4 mg PO DAILY@1600 30 Days #30 tab 09/25/19 10/07/19 Rx levothyroxine 112 mcg tablet 112 mcg PO QAM #30 tab 09/30/19 10/07/19 Rx metoprolol tartrate 25 mg tablet 25 mg PO BID #30 tab 09/30/19 10/07/19 Rx hydralazine 100 mg PO BID 10/07/19 10/07/19 History sodium bicarbonate 650 mg PO .ON HOLD 10/07/19 10/07/19 History Past Med/Surg History Medical History Anemia in chronic kidney disease (CKD) Arthritis (Chronic) Basosquamous carcinoma of skin Closed fracture of shaft of humerus (Resolved 04/09/11) End stage renal disease Hematuria Pericardial effusion (Resolved) Pulmonary infiltrate Surgical History S/P dilation and curettage Family History Mother Diabetes Hypertension Macular degeneration Hypothyroidism Social History Preferred Language: [place] Communication Ability: Effective Visual Impairment: No Limitations Hearing Ability: Normal 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 Constitutional: Denies fevers, chills. Positive generalized weakness Eyes: Denies any visual loss or diplopia ENT: Denies any ear/nose/throat pain or difficulty speaking or swallowing Respiratory: Denies any dyspnea, cough. Cardiovascular: Denies any chest pain or feeling of edema. Gastrointestinal: Denies any abdominal pain, nausea/vomiting. Positive recent loose stools. Musculoskeletal: Positive right knee and distal leg discomfort. Denies other extremity concerns. Skin: Denies any known acute rashes or lesions Neuro: Denies any headache, acute focal weakness or numbness, or difficulties with speech or swallow. Physical Exam Physical Exam: GENERAL: Awake, alert, well-appearing, in no acute distress. HENT: Normocephalic, atraumatic. Oropharynx unremarkable. EYES: Normal conjunctiva. Sclera non-icteric. NECK: Inspection normal. Non-tender. Supple and full ROM. CARDIAC: +S1S2 borderline but regular bradycardia, no murmurs. RESPIRATORY: Clear to auscultation. No wheezes or rales. Normal respiratory effort. GI: +BS, soft, non-distended. No tenderness to palpation. No rebound or guarding. EXTREMITIES: No pedal edema. Has some mild tenderness to palpation grossly throughout the right lower extremity from about the knee distally. No noted erythema or acute skin changes. NEURO: No gross neuro deficits. Distal sensation intact in bilateral lower extremities. Results & Data Vital Signs (Past 12 Hours) Vital Signs Temp Pulse Pulse Resp BP BP Pulse Ox 10/07/19 17:30 60 19 142/58 H 95 10/07/19 17:20 61 16 95 10/07/19 17:10 61 24 95 10/07/19 17:00 59 L 16 132/52 L 96 10/07/19 16:50 61 11 L 95 10/07/19 16:40 63 18 94 10/07/19 16:31 65 15 96 10/07/19 16:30 62 21 149/61 H 95 10/07/19 16:23 65 14 136/57 L 96 10/07/19 16:22 66 18 136/57 L 95 10/07/19 15:50 61 17 10/07/19 15:40 64 19 10/07/19 15:30 63 17 10/07/19 15:20 59 L 23 10/07/19 15:10 59 L 26 H 10/07/19 15:06 59 L 21 10/07/19 15:05 94 10/07/19 14:20 62 15 129/56 L 10/07/19 14:07 78 16 129/56 L 94 10/07/19 12:16 36.7 C 60 20 110/60 95 Laboratory Results 10/07/19 10/07/19 10/07/19 Range/Units 17:09 15:53 15:53 WBC 11.48 H (4.8-10.8) K/uL RBC 3.25 L (4.2-5.4) M/uL Hgb 10.2 L (12.0-16.0) g/dL Hct 31.5 L (37-47) % MCV 96.9 (80-100) fL MCH 31.4 (25-34) pg MCHC 32.4 (32-36) g/dL RDW Std Deviation 53.1 H (36.4-46.3) fL RDW Coeff of Jon 15.0 H (11.5-14.5) % Plt Count 306 (130-400) K/uL MPV 10.5 H (7.4-10.4) fL Immature Gran % (Auto) 0.5 % Neut % (Auto) 56.9 % Lymph % (Auto) 25.6 % [place] % (Auto) 13.1 % Eos % (Auto) 3.6 % Baso % (Auto) 0.3 % Immature Gran # (Auto) 0.06 H (0.00-0.02) K/uL Neut # (Auto) 6.53 H (1.4-6.5) K/uL Lymph # (Auto) 2.94 (1.2-3.4) K/uL [place] # (Auto) 1.50 H (0.11-0.59) K/uL Eos # (Auto) 0.41 (0-0.5) K/uL Baso # (Auto) 0.04 (0-0.2) K/uL Sodium 139 (136-145) mmol/L Potassium 3.8 (3.5-5.1) mmol/L Chloride 100 (98-107) mmol/L Carbon Dioxide 30 (21-32) mmol/L Anion Gap 9.0 (3-11) BUN 45 H (7-18) mg/dl Creatinine 6.39 H* (0.6-1.2) mg/dl Est Cr Clr Drug Dosing Not Reportable Est GFR ( Amer) 6.2 Est GFR (Non-Af Amer) 5.3 BUN/Creatinine Ratio 7.1 L (10-20) Glucose 96 (70-99) mg/dl POC Glucose (70-99) Calcium 9.4 (8.5-10.1) mg/dl Total Bilirubin 0.5 (0.2-1) mg/dl AST 27 (15-37) U/L ALT 19 (12-78) U/L Alkaline Phosphatase 105 (45-117) U/L Total Creatine Kinase 50 (26-192) U/L CK-MB (CK-2) < 1.0 (0.5-3.6) ng/ml CK/CKMB % Calc TNP Troponin I 0.018 (0-0.045) ng/ml Total Protein 7.5 (6.4-8.2) gm/dl Albumin 3.3 L (3.4-5.0) gm/dl Globulin 4.2 H (2.5-4.0) gm/dl Albumin/Globulin Ratio 0.8 L (0.9-2) TSH 4.900 H (0.300-4.500) uIu/ml Free T4 1.25 (0.8-1.6) ng/dl Urine Color Dark Yellow Urine Appearance Turbid A (Clear) Urine pH 6.0 (4.5-7.5) Ur Specific [place] 1.018 (1.000-1.030) Urine Protein 3+ H (Negative) Urine Glucose (UA) Negative (Negative) Urine Ketones Trace H (Negative) Urine Blood 2+ H (Negative) Urine Nitrite Negative (Negative) Urine Bilirubin Negative (Negative) Urine Urobilinogen Negative (Negative) Ur Leukocyte Esterase 3+ H (Negative) Urine WBC (Auto) >30 H (0-5) /hpf Urine RBC (Auto) 5-10 H (0-4) /hpf U Hyaline Cast (Auto) 1-5 (0-5) /lpf U Epithel Cells (Auto) 5-10 H (0-5) /lpf Urine Bacteria (Auto) 4+ H (Negative) Urine Yeast Not Reportable 10/07/19 Range/Units 12:21 WBC (4.8-10.8) K/uL RBC (4.2-5.4) M/uL Hgb (12.0-16.0) g/dL Hct (37-47) % MCV (80-100) fL MCH (25-34) pg MCHC (32-36) g/dL RDW Std Deviation (36.4-46.3) fL RDW Coeff of Jon (11.5-14.5) % Plt Count (130-400) K/uL MPV (7.4-10.4) fL Immature Gran % (Auto) % Neut % (Auto) % Lymph % (Auto) % [place] % (Auto) % Eos % (Auto) % Baso % (Auto) % Immature Gran # (Auto) (0.00-0.02) K/uL Neut # (Auto) (1.4-6.5) K/uL Lymph # (Auto) (1.2-3.4) K/uL [place] # (Auto) (0.11-0.59) K/uL Eos # (Auto) (0-0.5) K/uL Baso # (Auto) (0-0.2) K/uL Sodium (136-145) mmol/L Potassium (3.5-5.1) mmol/L Chloride (98-107) mmol/L Carbon Dioxide (21-32) mmol/L Anion Gap (3-11) BUN (7-18) mg/dl Creatinine (0.6-1.2) mg/dl Est Cr Clr Drug Dosing Est GFR ( Amer) Est GFR (Non-Af Amer) BUN/Creatinine Ratio (10-20) Glucose (70-99) mg/dl POC Glucose 88 (70-99) Calcium (8.5-10.1) mg/dl Total Bilirubin (0.2-1) mg/dl AST (15-37) U/L ALT (12-78) U/L Alkaline Phosphatase (45-117) U/L Total Creatine Kinase (26-192) U/L CK-MB (CK-2) (0.5-3.6) ng/ml CK/CKMB % Calc Troponin I (0-0.045) ng/ml Total Protein (6.4-8.2) gm/dl Albumin (3.4-5.0) gm/dl Globulin (2.5-4.0) gm/dl Albumin/Globulin Ratio (0.9-2) TSH (0.300-4.500) uIu/ml Free T4 (0.8-1.6) ng/dl Urine Color Urine Appearance (Clear) Urine pH (4.5-7.5) Ur Specific [place] (1.000-1.030) Urine Protein (Negative) Urine Glucose (UA) (Negative) Urine Ketones (Negative) Urine Blood (Negative) Urine Nitrite (Negative) Urine Bilirubin (Negative) Urine Urobilinogen (Negative) Ur Leukocyte Esterase (Negative) Urine WBC (Auto) (0-5) /hpf Urine RBC (Auto) (0-4) /hpf U Hyaline Cast (Auto) (0-5) /lpf U Epithel Cells (Auto) (0-5) /lpf Urine Bacteria (Auto) (Negative) Urine Yeast Medications Administered Discontinued Medications Ceftriaxone Sodium (Rocephin) 2,000 mg in 70 mls @ 140 mls/hr IV NOW STA Stop: 10/07/19 17:42 Last Infusion: 10/07/19 18:15 Dose: 0 mls/hr Documented by: [id number] Admin: 10/07/19 17:36 Dose: 140 mls/hr Documented by: [id number] Code Status & VTE Plan Code Status Full code VTE Prophylaxis Plan VTE Prophylaxis will be ordered: Yes Supervising Physician Co-Signing Physician Notes I personally interviewed and examined the patient. I agree with history of present illness and physical exam mentioned above, I also performed my own history taking and examination. Past medical history and review of system has been obtained by myself I reviewed all pertinent labs and studies Reviewed current medications I discussed and formulated of the assessment and plan mentioned above. Please refer to the Summary mentioned below. 89 years old female with past medical history of essential hypertension, dyslipidemia, paroxysmal A. fib, diabetes mellitus type 2, diabetic neuropathy presented to the hospital with generalized weakness, recently started on renal dialysis, has recurrent UTI. Presented to the hospital today with generalized weakness and pain in her lower extremity, here UA in ED came back highly suggestive of UTI, follow-up urine culture/blood cultures, patient was started empirically on ceftriaxone, CT head showed opacity of sphenoid sinus, which might represent sinusitis except that the patient has no significant symptoms to suggest that, chest x-ray showed some basal opacity but again patient has no symptoms to alarm for pneumonia. On exam patient had some suprapubic tenderness. Physical therapy/Occupational Therapy, possible placement to rehab. General Appearance: Frail elderly female in mild acute distress Eyes: normal Sclerae, extraocular muscle intact ENT: hearing grossly normal Neck: supple Respiratory/Chest: normal air entry bilateral ,no respiratory distress, no accessory muscle use Cardiovascular: regular rate, rhythm, no murmur Abdomen: Positive suprapubic tenderness, soft, no masses Extremities: no edema musculoskeletal: Tenderness in her right tibia, no significant swelling or inflammation in any joint Neurologic/Psychiatric: Awake alert oriented times place and person moves all extremities sensation intact cranial nerves II-12 appear to be intact Skin: normal color, warm/dry, no rash Diallo Gabriel MD, [facility] Hospitalist group Resident Activity Tracking Resident Involvement: Resident Care Provided Care Provided: Adult Hospital Medicine
[2019-10-07] MEDS ORDERED: CARBOHYDRATES FOR HYPOGLYCEMIA PO PRN (20:51)
[2019-10-07] MEDS ORDERED: GLUCAGON FOR INJ 1 MG VIAL SQ PRN (20:51)
[2019-10-07] MEDS ORDERED: MECLIZINE 12.5 MG TAB PO PRN (20:51)
[2019-10-07] MEDS ORDERED: DEXTROSE 50% 50 ML SYRINGE IV PRN (20:51)
[2019-10-07] MEDS ORDERED: GLUCOSE 40% GEL 15 GM TUBE PO PRN (20:51)
[2019-10-07] MEDS ORDERED: GLUCOSE 10 TABS/TUBE PO PRN (20:51)
--- NOTE | 2019-10-07 21:28 | Billing Data ---
Coding Level of Care Code 37385 Initial Inpt Care Lvl 3
[2019-10-07] MEDS ORDERED: PATIENT'S HEIGHT AND/OR WEIGHT NEEDED SCH (21:30)
--- NOTE | 2019-10-07 21:53 | XRay Report ---
XR chest 1V portable CLINICAL HISTORY: Weakness. Possible infiltrate. Possible abnormal prior chest x-ray. COMPARISON STUDY: 10/07/2019 FINDINGS: The heart is mildly enlarged. There is a right-sided dual-lumen central venous catheter.[Th ere is no lobar consolidation. There is mild basilar residual thickening similar to the preceding casper dy. There is a prominent left cardiophrenic angle fat pad. There are no large pleural effusions. IMPRESSION: No change from the preceding study. Stable interstitial thickening. No lobar consolidatio n. Electronically signed by: Cristóbal Davis M.D. 10/07/2019 9:51 PM
--- NOTE | 2019-10-07 21:58 | XRay Report ---
XR knee RT 1 or 2V routine CLINICAL HISTORY: right knee pain COMPARISON: 12/20/2016 DISCUSSION: There is chondrocalcinosis. There are vascular calcifications. There is narrowing of the medial and lateral joint compartments. There are no acute fractures. IMPRESSION: Chondrocalcinosis and degenerative change. No acute fractures Electronically signed by: Cristóbal Davis M.D. 10/07/2019 9:57 PM
--- NOTE | 2019-10-07 22:01 | XRay Report ---
XR tibia fibula RT 2V CLINICAL HISTORY: right calabrese pain COMPARISON: None. DISCUSSION: There are vascular calcifications present. No acute fractures or dislocations are visuali zed. There are degenerative changes present within the. There is chondrocalcinosis. IMPRESSION: No acute fractures or dislocations identified. Electronically signed by: Cristóbal Davis M.D. 10/07/2019 10:00 PM
[2019-10-07] MEDS: HydrALAZINE TAB 50 MG TAB PO SCH (22:22)
[2019-10-07] MEDS: ATORVASTATIN 10 MG TAB PO SCH (22:22)
[2019-10-07] MEDS: FUROSEMIDE 20 MG TAB PO SCH (22:22)
[2019-10-07] MEDS: GABAPENTIN 300 MG CAP PO SCH (22:22)
[2019-10-07] MEDS: METOPROLOL TARTRATE 25 MG TAB PO SCH (22:22)
[2019-10-07] MEDS: INSULIN ASPART 100 UNITS/ML 3 ML PEN SC SCH (22:58)
[2019-10-07] MEDS: ACETAMINOPHEN 325 MG TAB PO PRN (23:11)
[2019-10-08] MEDS: ACETAMINOPHEN 325 MG TAB PO PRN (05:06)
[2019-10-08] MEDS: LEVOTHYROXINE SODIUM 112 MCG TABLET PO SCH (06:40)
[2019-10-08 07:03] LABS: Basophils # (auto) 0.03 K/uL (0-0.2); Basophils % (auto) 0.4 %; Eosinophils # (auto) 0.39 K/uL (0-0.5); Eosinophils % (auto) 4.6 %; Hematocrit (blood only) 28.8 % (37-47); Hemoglobin 9.2 g/dL (12.0-16.0); Immature Granulocytes # (auto) 0.05 K/uL (0.00-0.02); Immature Granulocytes % (auto) 0.6 %; Lymphocytes # (auto) 2.54 K/uL (1.2-3.4); Lymphocytes % (auto) 29.8 %; Mean Corpuscular Hemoglobin 31.1 pg (25-34); Mean Corpuscular Hgb Conc 31.9 g/dL (32-36); Mean Corpuscular Volume 97.3 fL (80-100); Mean Platelet Volume 9.7 fL (7.4-10.4); Monocytes # (auto) 1.29 K/uL (0.11-0.59); Monocytes % (auto) 15.2 %; Neutrophils # (auto) 4.21 K/uL (1.4-6.5); Neutrophils % (auto) 49.4 %; Platelet Count 273 K/uL (130-400); RDW Coefficient of Variation 14.8 % (11.5-14.5); RDW Standard Deviation 52.7 fL (36.4-46.3); Red Blood Count 2.96 M/uL (4.2-5.4); White Blood Count 8.51 K/uL (4.8-10.8)
[2019-10-08 07:13] LABS: INR 2.3 (0.9-1.1); Prothrombin Time 22.6 Seconds (9.0-12.0)
[2019-10-08 07:50] LABS: BUN Creatinine Ratio 7.4 (10-20); Calcium 8.7 mg/dl (8.5-10.1); Creatinine Clr Calc Pharmacy 6.2 ml/min; Est GFR (African American) 5.4; Est GFR (Non-African American) 4.6; Magnesium 2.3 mg/dl (1.8-2.4); Phosphorus 4.7 mg/dl (2.5-4.9); Potassium 3.6 mmol/L (3.5-5.1)
[2019-10-08] MEDS: INSULIN ASPART 100 UNITS/ML 3 ML PEN SC SCH ×4 (07:56→20:09)
[2019-10-08] MEDS: INSULIN GLARGINE SOLOSTAR 100 UNITS/ML 3 ML PEN SQ SCH (07:57)
[2019-10-08] MEDS: GABAPENTIN 100 MG CAP PO SCH (07:58)
[2019-10-08] MEDS: CALCIUM CARBONATE 500 MG CHEWABLE TAB PO SCH ×3 (07:58→18:07)
[2019-10-08] MEDS: CHOLECALCIFEROL 1,000 UNITS TAB PO SCH (07:58)
[2019-10-08] MEDS: NEPHROCAPS PO SCH ×2 (07:58→12:34)
[2019-10-08] MEDS: CEROVITE ADV FORMULA TAB PO SCH (07:58)
[2019-10-08] MEDS: METOPROLOL TARTRATE 25 MG TAB PO SCH ×2 (08:59→20:05)
[2019-10-08] MEDS ORDERED: SODIUM CHLORIDE 0.9% 1000ML 1,000 ML IV PRN (10:35)
[2019-10-08] MEDS: HydrALAZINE TAB 50 MG TAB PO SCH ×2 (10:38→20:04)
[2019-10-08] MEDS: FUROSEMIDE 20 MG TAB PO SCH ×2 (10:38→18:06)
[2019-10-08] MEDS: AMLODIPINE BESYLATE 5 MG TAB PO SCH (10:39)
--- NOTE | 2019-10-08 10:40 | Nephrology Consultation ---
Date of Consultation October 08, 2019 Assessment & Plan (1) ESRD (end stage renal disease) on dialysis: -- Will provide HD today to maintain regular TTS schedule. Orders have been entered into EMR and HD RN notified (2) Weakness: -- Possibly related to UTI. Cultures pending. On IV Ceftriaxone -- Recommend PT evaluation for strengthening (3) Anemia: -- Will provide DANNA w/ HD treatments (4) Diabetes mellitus with diabetic neuropathy: (5) AF (paroxysmal atrial fibrillation): (6) Hypothyroidism: History of Present Illness Reason for Consultation: ESRD on HD Attending Physician: Manuel Recinos, DO History of Present Illness Mrs. Pearce is an 89 year old white female who is seen at the request of Dr. Recinos for evaluation of ESRD on IHD. Medical records in the EMR were reviewed today and are summarized as follows: Mrs. Pearce has ESRD due to diabetic nephropathy and hypertensive nephrosclerosis. Her medical history is also significant for iron deficiency anemia, atrial fibrillation (warfarin), hypothyroidism and depression. In 09/17 Cr had risen to 5.1 w/ EGFR 7 cc/min. Evaluation for vasculitis was negative. On 09/24 IJ THC was placed and HD started for correction of volume status and electrolyte balance. Mrs. Pearce has been dialyzing TTS at [facility]. Following her treatment Monday she presented to the ED for evaluation of weakness. Head CT revealed sinusitis. CXR was negative for infiltrate. Urine culture is positive for G- bacilli. Allergies Allergy/AdvReac Type Severity Reaction Status Date / Time No Known Allergies Allergy Unverified 10/07/19 16:17 Home Medications Home Medications Medication Instructions Recorded Confirmed Type PreserVision AREDS 1 cap PO BID 12/17/18 10/07/19 History atorvastatin 10 mg PO HS 12/17/18 10/07/19 History cholecalciferol (vitamin D3) 2,000 unit PO QAM 12/17/18 10/07/19 History [Vitamin D3] lancets 33 gauge #400 ea 04/03/19 10/07/19 Rx acetaminophen 325 mg tablet 650 mg PO Q4H PRN tab 07/31/19 10/07/19 History blood sugar diagnostic #10 ea 07/31/19 10/04/19 History insulin lispro 100) 100 unit/mL 20 units SUBCUT DAILY #7 ml 07/31/19 10/07/19 History subcutaneous pen gabapentin 100 mg capsule 100 mg PO QAM #30 cap 08/22/19 10/07/19 Rx gabapentin 300 mg capsule 300 mg PO HS #30 cap 08/22/19 10/07/19 Rx pen needle, diabetic 32 gauge x #360 ea 08/22/19 10/07/19 Rx 5/32" meclizine 12.5 mg tablet 12.5 mg PO TID PRN #30 tab 09/09/19 10/07/19 Rx B complex with C 20-folic acid 1 cap PO QAM 30 Days #30 cap 09/25/19 10/07/19 Rx [Renal Caps] amlodipine 10 mg PO DAILY 30 Days #30 tab 09/25/19 10/07/19 Rx calcitriol 0.25 mcg PO MoWeFr@0900 30 Days 09/25/19 10/07/19 Rx #20 cap calcium carbonate [Tums] 500 mg PO TIDM 30 Days #75 tab 09/25/19 10/07/19 Rx furosemide 20 mg PO BID 30 Days #60 tab 09/25/19 10/07/19 Rx insulin glargine [Lantus Solostar 15 unit SUBCUT QDD 30 Days #4.5 ml 09/25/19 10/07/19 Rx U-100 Insulin] warfarin [Coumadin] 4 mg PO DAILY@1600 30 Days #30 tab 09/25/19 10/07/19 Rx levothyroxine 112 mcg tablet 112 mcg PO QAM #30 tab 09/30/19 10/07/19 Rx metoprolol tartrate 25 mg tablet 25 mg PO BID #30 tab 09/30/19 10/07/19 Rx hydralazine 100 mg PO BID 10/07/19 10/07/19 History sodium bicarbonate 650 mg PO .ON HOLD 10/07/19 10/07/19 History Patient History Medical History Anemia in chronic kidney disease (CKD) Arthritis (Chronic) Basosquamous carcinoma of skin Closed fracture of shaft of humerus (Resolved 04/09/11) End stage renal disease Hematuria Pericardial effusion (Resolved) Pulmonary infiltrate Surgical History S/P dilation and curettage Family History Mother Diabetes Hypertension Macular degeneration Hypothyroidism Social History Preferred Language: [place] Islander Communication Ability: Effective Visual Impairment: No Limitations Hearing Ability: Normal 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: No Beliefs That Will Affect Care: None marital status: Current Living Situation: Spouse Current Living Situation Comment: split level home current occupational status: retired Other Information That Helps Us Care for You: No Feels Safe at Home: Yes Safety Concerns: Feels Safe At This Time Smoking Status: Never smoker Second Hand Exposure: No ; Hx Alcohol Use: No Hx Substance Use: No Childhood Exposure to Second-Hand Smoke: No Seatbelt Use: always Review of Systems Constitutional: + weakness; no fever Eyes: no worsening vision and no problem reported Ear, Nose, Mouth, Throat: no problem reported Respiratory: no cough and no dyspnea Cardiovascular: no chest pain, no palpitations and no edema Gastrointestinal: no abdominal pain, no nausea, no vomiting and no diarrhea/loose stools Genitourinary: no dysuria and no hematuria Musculoskeletal: no back pain Integumentary: no rash Neurologic: no falls Physical Exam Constitutional: + frail appearing; not in distress Eyes: PERRL, conjunctivae normal, anicteric sclerae ENMT: external ear and nose normal, oropharynx normal Neck: trachea midline, no thyromegaly (R IJ THC w/ clean dry dressing) Respiratory: normal respiratory effort, lungs clear to auscultation Cardiovascular: Rate/Rhythm: + irregularly irregular Gastrointestinal (Abdomen): normal bowel sounds, soft, nontender, no hepatosplenomegaly Musculoskeletal: Extremities: no cyanosis Skin: no rashes, warm and dry Neurologic: awake; not confused Results & Data Vital Signs (Past 12 Hours) Vital Signs Temp Pulse Pulse Resp BP BP Pulse Ox 10/08/19 07:03 36.8 C 52 L 18 122/64 96 10/08/19 03:15 36.8 C 60 21 118/71 92 10/08/19 01:04 50 L 10/07/19 23:12 36.6 C 57 L 19 106/51 L 95 Laboratory Results Laboratory Tests 09/19/19 09/19/19 10/08/19 06:40 06:40 06:47 WBC 8.17 8.51 Hgb 10.2 L 9.2 L Hct 30.8 L 28.8 L Plt Count 227 273 Sodium 144 Potassium 4.2 Chloride 114 H Carbon Dioxide 20 L BUN 63 H Creatinine 4.57 H* Glucose 141 H 10/08/19 06:47 WBC Hgb Hct Plt Count Sodium 138 Potassium 3.6 Chloride 102 Carbon Dioxide 30 BUN 53 H Creatinine 7.20 H* D Glucose 105 H PG Care Time/CCT Total # of Minutes Spent Total Time Spent with Patient: Total time spent is greater than 50% in coordination of care (as documented) at patient's floor/unit and/or counseling patient:
[2019-10-08] MEDS ORDERED: HEPARIN SOD (PORCINE) 1000 UNIT/ML 10 ML VIAL IV SCH (11:00)
[2019-10-08] MEDS ORDERED: EPOETIN ALFA 10,000 UNITS/ML VIAL IV SCH (11:00)
[2019-10-08] MEDS: HEPARIN SOD (PORCINE) 1000 UNIT/ML 10 ML VIAL IV SCH ×2 (14:21→18:01)
--- NOTE | 2019-10-08 16:00 | Hospitalist Progress Note ---
Date of Service October 08, 2019 Assessment & Plan (1) Weakness: multifactorial, due to ongoing HD, deconditioning, new UTI consult PT/OT plan for rehab (2) Urinary tract infection: urine culture growing gram negative bacilli no fever, WBC normal continue Rocephin, should have final culture results by tomorrow (3) ESRD (end stage renal disease) on dialysis: HD done today, maintain T Th Sat schedule electrolytes stable Dr. Palma following (4) Opacified sphenoid sinus: (5) Hypertension: BP stable today on home regimen (6) Hyperlipidemia: (7) Paroxysmal atrial fibrillation: HR in the 60's, in sinus rhythm (8) Diabetes mellitus with diabetic neuropathy: monitor for hypoglycemia (9) Gait disturbance: (10) Gout: (11) Anemia: (12) Hypothyroidism: Subjective patient seen while in HD, tolerating well reports that she still feels very weak she knows that she is going to need to go to rehab at least short term she ate okay today but not great her breathing is stable, no chest pain or pressure, no nausea/vomiting/diarrhea, no fever chills reviewed labs, WBC normal, Hb 9, electrolytes stable discussed with Dr. Palma, appreciate his input urine culture growing gram negative bacilli Review of Systems Review of Systems: All systems reviewed & are unremarkable except as noted in HPI & below Constitutional: + fatigue and + weakness; no fever Respiratory: no cough and no dyspnea Cardiovascular: no chest pain and no edema Gastrointestinal: + early satiety; no abdominal pain, no nausea, no vomiting, no constipation and no diarrhea/loose stools Physical Exam Constitutional: WD/WN, vitals as above + overweight Eyes: PERRL, conjunctivae normal, anicteric sclerae ENMT: external ear and nose normal, oropharynx normal Neck: trachea midline, no thyromegaly Respiratory: normal respiratory effort, lungs clear to auscultation Cardiovascular: RRR, no murmur, no edema Gastrointestinal (Abdomen): normal bowel sounds, soft, nontender, no hepatosplenomegaly Musculoskeletal: Head/Neck/Chest: normocephalic and head atraumatic Extremities: extremities normal to inspection and + abnormal strength (generalized weakness) Skin: no rashes, warm and dry Neurologic: patellar DTR's 2+ bilat, sensation intact and PERRL, EOMI, accommodation nl, no face palsy, no dysarthria Psychiatric: A+Ox3, euthymic affect Lymphatic: no cervical or axillary lymphadenopathy Results & Data Vital Signs (Past 12 Hours) Vital Signs Temp Pulse Pulse Pulse Resp BP BP 10/08/19 14:00 63 137/53 L 10/08/19 13:40 56 L 122/66 10/08/19 13:20 65 145/54 H 10/08/19 13:11 36.5 C 75 64 10/08/19 12:56 65 138/53 L 10/08/19 11:00 36.5 C 58 L 18 10/08/19 10:37 48 L 10/08/19 07:03 36.8 C 52 L 18 122/64 BP Pulse Ox 10/08/19 14:00 10/08/19 13:40 10/08/19 13:20 10/08/19 13:11 10/08/19 12:56 10/08/19 11:00 131/56 L 95 10/08/19 10:37 10/08/19 07:03 96 Laboratory Results Laboratory Results - last 24 hr 10/07/19 10/07/19 10/07/19 15:53 15:53 17:09 WBC 11.48 H RBC 3.25 L Hgb 10.2 L Hct 31.5 L MCV 96.9 MCH 31.4 MCHC 32.4 RDW Std Deviation 53.1 H RDW Coeff of Jon 15.0 H Plt Count 306 MPV 10.5 H Immature Gran % (Auto) 0.5 Neut % (Auto) 56.9 Lymph % (Auto) 25.6 Love % (Auto) 13.1 Eos % (Auto) 3.6 Baso % (Auto) 0.3 Immature Gran # (Auto) 0.06 H Neut # (Auto) 6.53 H Lymph # (Auto) 2.94 Love # (Auto) 1.50 H Eos # (Auto) 0.41 Baso # (Auto) 0.04 PT INR Sodium 139 Potassium 3.8 Chloride 100 Carbon Dioxide 30 Anion Gap 9.0 BUN 45 H Creatinine 6.39 H* Est Cr Clr Drug Dosing Not Reportable Est GFR ( Amer) 6.2 Est GFR (Non-Af Amer) 5.3 BUN/Creatinine Ratio 7.1 L Glucose 96 POC Glucose Calcium 9.4 Phosphorus Magnesium Total Bilirubin 0.5 AST 27 ALT 19 Alkaline Phosphatase 105 Total Creatine Kinase 50 CK-MB (CK-2) < 1.0 CK/CKMB % Calc TNP Troponin I 0.018 Total Protein 7.5 Albumin 3.3 L Globulin 4.2 H Albumin/Globulin Ratio 0.8 L Procalcitonin TSH 4.900 H Free T4 1.25 Urine Color Dark Yellow Urine Appearance Turbid A Urine pH 6.0 Ur Specific [place] 1.018 Urine Protein 3+ H Urine Glucose (UA) Negative Urine Ketones Trace H Urine Blood 2+ H Urine Nitrite Negative Urine Bilirubin Negative Urine Urobilinogen Negative Ur Leukocyte Esterase 3+ H Urine WBC (Auto) >30 H Urine RBC (Auto) 5-10 H U Hyaline Cast (Auto) 1-5 U Epithel Cells (Auto) 5-10 H Urine Bacteria (Auto) 4+ H Urine Yeast Not Reportable 10/07/19 10/07/19 10/07/19 21:47 21:47 22:11 WBC RBC Hgb Hct MCV MCH MCHC RDW Std Deviation RDW Coeff of Jon Plt Count MPV Immature Gran % (Auto) Neut % (Auto) Lymph % (Auto) Love % (Auto) Eos % (Auto) Baso % (Auto) Immature Gran # (Auto) Neut # (Auto) Lymph # (Auto) Love # (Auto) Eos # (Auto) Baso # (Auto) PT INR Sodium Potassium Chloride Carbon Dioxide Anion Gap BUN Creatinine Est Cr Clr Drug Dosing Est GFR ( Amer) Est GFR (Non-Af Amer) BUN/Creatinine Ratio Glucose POC Glucose 117 H Calcium Phosphorus Magnesium Total Bilirubin AST ALT Alkaline Phosphatase Total Creatine Kinase CK-MB (CK-2) CK/CKMB % Calc Troponin I < 0.015 Total Protein Albumin Globulin Albumin/Globulin Ratio Procalcitonin 0.14 TSH Free T4 Urine Color Urine Appearance Urine pH Ur Specific [place] Urine Protein Urine Glucose (UA) Urine Ketones Urine Blood Urine Nitrite Urine Bilirubin Urine Urobilinogen Ur Leukocyte Esterase Urine WBC (Auto) Urine RBC (Auto) U Hyaline Cast (Auto) U Epithel Cells (Auto) Urine Bacteria (Auto) Urine Yeast 10/08/19 10/08/19 10/08/19 06:47 06:47 06:47 WBC 8.51 RBC 2.96 L Hgb 9.2 L Hct 28.8 L MCV 97.3 MCH 31.1 MCHC 31.9 L RDW Std Deviation 52.7 H RDW Coeff of Jon 14.8 H Plt Count 273 MPV 9.7 Immature Gran % (Auto) 0.6 Neut % (Auto) 49.4 Lymph % (Auto) 29.8 Love % (Auto) 15.2 Eos % (Auto) 4.6 Baso % (Auto) 0.4 Immature Gran # (Auto) 0.05 H Neut # (Auto) 4.21 Lymph # (Auto) 2.54 Love # (Auto) 1.29 H Eos # (Auto) 0.39 Baso # (Auto) 0.03 PT 22.6 H INR 2.3 H Sodium 138 Potassium 3.6 Chloride 102 Carbon Dioxide 30 Anion Gap 6.0 BUN 53 H Creatinine 7.20 H* D Est Cr Clr Drug Dosing 6.2 Est GFR ( Amer) 5.4 Est GFR (Non-Af Amer) 4.6 BUN/Creatinine Ratio 7.4 L Glucose 105 H POC Glucose Calcium 8.7 Phosphorus 4.7 Magnesium 2.3 Total Bilirubin AST ALT Alkaline Phosphatase Total Creatine Kinase CK-MB (CK-2) CK/CKMB % Calc Troponin I Total Protein Albumin Globulin Albumin/Globulin Ratio Procalcitonin TSH Free T4 Urine Color Urine Appearance Urine pH Ur Specific [place] Urine Protein Urine Glucose (UA) Urine Ketones Urine Blood Urine Nitrite Urine Bilirubin Urine Urobilinogen Ur Leukocyte Esterase Urine WBC (Auto) Urine RBC (Auto) U Hyaline Cast (Auto) U Epithel Cells (Auto) Urine Bacteria (Auto) Urine Yeast 10/08/19 10/08/19 07:21 10:55 WBC RBC Hgb Hct MCV MCH MCHC RDW Std Deviation RDW Coeff of Jon Plt Count MPV Immature Gran % (Auto) Neut % (Auto) Lymph % (Auto) Love % (Auto) Eos % (Auto) Baso % (Auto) Immature Gran # (Auto) Neut # (Auto) Lymph # (Auto) Love # (Auto) Eos # (Auto) Baso # (Auto) PT INR Sodium Potassium Chloride Carbon Dioxide Anion Gap BUN Creatinine Est Cr Clr Drug Dosing Est GFR ( Amer) Est GFR (Non-Af Amer) BUN/Creatinine Ratio Glucose POC Glucose 122 H 162 H Calcium Phosphorus Magnesium Total Bilirubin AST ALT Alkaline Phosphatase Total Creatine Kinase CK-MB (CK-2) CK/CKMB % Calc Troponin I Total Protein Albumin Globulin Albumin/Globulin Ratio Procalcitonin TSH Free T4 Urine Color Urine Appearance Urine pH Ur Specific [place] Urine Protein Urine Glucose (UA) Urine Ketones Urine Blood Urine Nitrite Urine Bilirubin Urine Urobilinogen Ur Leukocyte Esterase Urine WBC (Auto) Urine RBC (Auto) U Hyaline Cast (Auto) U Epithel Cells (Auto) Urine Bacteria (Auto) Urine Yeast Microbiology 10/07/19 17:09 Urine,Clean Catch Urine Culture - Preliminary Gram negative bacilli Medications Administered Current Inpatient Medications Acetaminophen (Tylenol) 650 mg PO Q4H PRN PRN Reason: fever or pain Stop: 11/06/19 20:50 Last Admin: 10/08/19 05:06 Dose: 650 mg Documented by: Amlodipine Besylate (Norvasc) 10 mg PO DAILY [facility] Stop: 11/07/19 08:59 Last Admin: 10/08/19 10:39 Dose: Not Given Documented by: Atorvastatin Calcium (Lipitor) 10 mg PO [facility] Stop: 11/06/19 20:59 Last Admin: 10/07/19 22:22 Dose: 10 mg Documented by: Calcitriol (Rocaltrol) 0.25 mcg PO MoWeFr@0900 [facility] Stop: 11/08/19 08:59 Calcium Carbonate (Tums) 500 mg PO TIDM [facility] Stop: 11/07/19 07:59 Last Admin: 10/08/19 12:34 Dose: 500 mg Documented by: Dextrose (Dextrose 50%) 25 - 50 ml IV UD PRN; Protocol PRN Reason: Hypoglycemia Protocol Stop: 11/06/19 20:50 Furosemide (Lasix) 20 mg PO BID17 [facility] Stop: 11/06/19 20:59 Last Admin: 10/08/19 10:38 Dose: Not Given Documented by: Gabapentin (Neurontin) 100 mg PO QAM [facility] Stop: 11/07/19 08:59 Last Admin: 10/08/19 07:58 Dose: 100 mg Documented by: Gabapentin (Neurontin) 300 mg PO HS [facility] Stop: 11/06/19 20:59 Last Admin: 10/07/19 22:22 Dose: 300 mg Documented by: Glucagon (Glucagen) 1 mg SQ UD PRN; Protocol PRN Reason: Hypoglycemia Protocol Stop: 11/06/19 20:50 Glucose (Dex4 Glucose) 4 - 8 tabs PO UD PRN; Protocol PRN Reason: Hypoglycemia Protocol Stop: 11/06/19 20:50 Glucose (Glucose 40%) 15 - 30 gm PO UD PRN; Protocol PRN Reason: Hypoglycemia Protocol Stop: 11/06/19 20:50 Hydralazine HCl (Apresoline) 100 mg PO BID [facility] Stop: 11/06/19 20:59 Last Admin: 10/08/19 10:38 Dose: Not Given Documented by: Ceftriaxone Sodium 2,000 mg/ (Dextrose) 70 mls @ 140 mls/hr IV Q24H [facility] Stop: 10/16/19 18:29 Sodium Chloride (Nss 1000ml) 1,000 mls @ 0 mls/hr IV .Q0M PRN PRN Reason: For Hemodialysis Use ONLY Stop: 10/08/19 16:34 Insulin Aspart (Novolog Flexpen) 0 units SC ACHS [facility] Stop: 11/06/19 20:59 Last Admin: 10/08/19 12:05 Dose: 7 units Documented by: Insulin Glargine (Lantus Solostar Pen) 15 units SQ DAILY [facility] Stop: 11/07/19 08:59 Last Admin: 10/08/19 07:57 Dose: 15 units Documented by: Levothyroxine Sodium (Synthroid) 112 mcg PO DAILYBB [facility] Stop: 11/07/19 06:29 Last Admin: 10/08/19 06:40 Dose: 112 mcg Documented by: Meclizine HCl (Antivert) 12.5 mg PO TID PRN PRN Reason: Vertigo Stop: 11/06/19 20:50 Metoprolol Tartrate (Lopressor) 25 mg PO BID [facility] Stop: 11/06/19 20:59 Last Admin: 10/08/19 08:59 Dose: Not Given Documented by: Miscellaneous (Carbohydrates For Hypoglycemia) 15 - 30 gm PO UD PRN PRN Reason: Hypoglycemia Protocol Stop: 11/06/19 20:50 Multivitamins/Minerals (Multivitamin W/ Minerals Tab) 1 tab PO DAILY [facility] Stop: 11/07/19 08:59 Last Admin: 10/08/19 07:58 Dose: 1 tab Documented by: Vitamin B Complex/Folic Acid (Nephrocaps) 1 cap PO QAM [facility] Stop: 11/07/19 08:59 Last Admin: 10/08/19 07:58 Dose: 1 cap Documented by: Vitamin B Complex/Folic Acid (Nephrocaps) 1 cap PO QAM [facility] Stop: 11/07/19 10:59 Last Admin: 10/08/19 12:34 Dose: 1 cap Documented by: Vitamin D (Vitamin D3) 2,000 units PO QAM [facility] Stop: 11/07/19 08:59 Last Admin: 10/08/19 07:58 Dose: 2,000 units Documented by: Warfarin Sodium (Coumadin) 4 mg PO DAILY@1600 [facility] Stop: 11/07/19 15:59 PG Care Time/CCT Total # of Minutes Spent Total Time Spent with Patient: Total time spent is greater than 50% in coordination of care (as documented) at patient's floor/unit and/or counseling patient:
[2019-10-08] MEDS ORDERED: cefTRIAXone SODIUM 1,000 MG/50 ML BAG IV SCH (17:30)
[2019-10-08] MEDS ORDERED: cefTRIAXone SODIUM 2,000 MG in DEXTROSE 5% 50 ML IV SCH (18:00)
[2019-10-08] MEDS: WARFARIN SOD 4 MG TAB PO SCH (18:05)
[2019-10-08] MEDS: ATORVASTATIN 10 MG TAB PO SCH (20:04)
[2019-10-08] MEDS: GABAPENTIN 300 MG CAP PO SCH (20:05)
[2019-10-09] MEDS: LEVOTHYROXINE SODIUM 112 MCG TABLET PO SCH (06:08)
[2019-10-09] MEDS: INSULIN ASPART 100 UNITS/ML 3 ML PEN SC SCH ×4 (07:59→21:34)
[2019-10-09] MEDS: NEPHROCAPS PO SCH ×2 (08:00)
[2019-10-09] MEDS: CALCITRIOL 0.25 MCG CAPSULE PO SCH (08:00)
[2019-10-09] MEDS: INSULIN GLARGINE SOLOSTAR 100 UNITS/ML 3 ML PEN SQ SCH (08:00)
[2019-10-09] MEDS: CEROVITE ADV FORMULA TAB PO SCH (08:00)
[2019-10-09] MEDS: CHOLECALCIFEROL 1,000 UNITS TAB PO SCH (08:00)
[2019-10-09] MEDS: CALCIUM CARBONATE 500 MG CHEWABLE TAB PO SCH ×3 (08:01→16:48)
[2019-10-09] MEDS: FUROSEMIDE 20 MG TAB PO SCH ×2 (08:01→16:50)
[2019-10-09] MEDS: HydrALAZINE TAB 50 MG TAB PO SCH ×2 (08:01→21:32)
[2019-10-09] MEDS: AMLODIPINE BESYLATE 5 MG TAB PO SCH (08:01)
[2019-10-09] MEDS: GABAPENTIN 100 MG CAP PO SCH (08:01)
[2019-10-09] MEDS: METOPROLOL TARTRATE 25 MG TAB PO SCH ×2 (08:02→21:30)
[2019-10-09] MEDS ORDERED: ERTAPENEM SODIUM 500 MG in SODIUM CHLORIDE 0.9% 50 ML IV ONE (09:15)
--- NOTE | 2019-10-09 09:37 | Nephrology Progress Note ---
Date of Service October 09, 2019 Assessment & Plan (1) ESRD (end stage renal disease) on dialysis: -- Patient dialyzed yesterday without complication. Will schedule next HD for am and maintain TTS schedule (2) Weakness: -- E. Coli UTI. On IV Ceftriaxone -- Recommend PT evaluation for strengthening (3) Anemia: -- Will provide DANNA w/ HD treatments (4) Diabetes mellitus with diabetic neuropathy: (5) AF (paroxysmal atrial fibrillation): (6) Hypothyroidism: Subjective Mrs. Pearce was seen & examined in her hospital room this morning. She c/o weakness but would like to work w/ physical therapy today. Mrs. Pearce was dialyzed yesterday for 2 L UF without complication. Review of Systems Constitutional: + weakness; no fever Eyes: no worsening vision and no problem reported Ear, Nose, Mouth, Throat: no problem reported Respiratory: no cough and no dyspnea Cardiovascular: no chest pain, no palpitations and no edema Gastrointestinal: no abdominal pain, no nausea, no vomiting and no diarrhea/loose stools Genitourinary: no dysuria and no hematuria Musculoskeletal: no back pain Integumentary: no rash Neurologic: no falls, no dizziness and no confusion Physical Exam Constitutional: + frail appearing; not in distress Eyes: PERRL, conjunctivae normal, anicteric sclerae ENMT: external ear and nose normal, oropharynx normal Neck: trachea midline, no thyromegaly (R IJ THC w/ clean dry dressing) Respiratory: normal respiratory effort, lungs clear to auscultation Cardiovascular: Rate/Rhythm: + irregularly irregular Gastrointestinal (Abdomen): normal bowel sounds, soft, nontender, no hepatosplenomegaly Musculoskeletal: Extremities: no cyanosis Skin: no rashes, warm and dry Neurologic: awake; not confused Results & Data Vital Signs (Past 12 Hours) Vital Signs Temp Pulse Pulse Resp BP Pulse Ox 10/09/19 07:40 36.6 C 59 L 16 119/63 94 10/09/19 04:00 37.0 C 60 20 112/62 97 10/08/19 23:25 37.2 C 62 20 123/69 95 10/08/19 23:04 58 L PG Care Time/CCT Total # of Minutes Spent Total Time Spent with Patient: Total time spent is greater than 50% in coordination of care (as documented) at patient's floor/unit and/or counseling patient:
--- NOTE | 2019-10-09 15:46 | Hospitalist Progress Note ---
Date of Service October 09, 2019 Assessment & Plan (1) Weakness: multifactorial, due to ongoing HD, deconditioning, new UTI consult PT/OT - participated today plan for rehab, anticipate that she will be ready Monday (2) Urinary tract infection: urine culture growing ESBL E coli no fever, WBC normal on 10/08, repeat tomorrow started Ertapenem today plan for US guided IV for 10 days total therapy, to be completed at SNF (3) ESRD (end stage renal disease) on dialysis: HD done 10/08, maintain T Th Sat schedule electrolytes stable Dr. Palma following plan for HD tomorrow (4) Opacified sphenoid sinus: (5) Hypertension: BP stable today on home regimen (6) Hyperlipidemia: (7) Paroxysmal atrial fibrillation: HR in the 60's, in sinus rhythm (8) Diabetes mellitus with diabetic neuropathy: monitor for hypoglycemia, no episodes today (9) Gait disturbance: (10) Gout: (11) Anemia: (12) Hypothyroidism: Subjective urine culture growing ESBL E coli, d/w pharmacy, change to Ertapenem d/w IV team, US guided catheter will work for access after she is discharged no labs today, plan for tomorrow AM patient feels weak but participated with therapy appetite is a bit poor, she does not like the food denies chest pain, dyspnea, cough, fever/chills, nausea she continues to agree with plan for SNF rehab Review of Systems Review of Systems: All systems reviewed & are unremarkable except as noted in HPI & below Constitutional: + fatigue and + weakness; no fever Respiratory: no cough and no dyspnea Cardiovascular: no chest pain and no edema Gastrointestinal: + early satiety; no abdominal pain, no nausea, no vomiting, no constipation and no diarrhea/loose stools Physical Exam Constitutional: WD/WN, vitals as above + overweight Eyes: PERRL, conjunctivae normal, anicteric sclerae ENMT: external ear and nose normal, oropharynx normal Neck: trachea midline, no thyromegaly Respiratory: normal respiratory effort, lungs clear to auscultation Cardiovascular: RRR, no murmur, no edema Gastrointestinal (Abdomen): normal bowel sounds, soft, nontender, no hepat osplenomegaly Musculoskeletal: Head/Neck/Chest: normocephalic and head atraumatic Extremities: extremities normal to inspection and + abnormal strength (generalized weakness) Skin: no rashes, warm and dry Neurologic: patellar DTR's 2+ bilat, sensation intact and PERRL, EOMI, accommodation nl, no face palsy, no dysarthria Psychiatric: A+Ox3, euthymic affect Lymphatic: no cervical or axillary lymphadenopathy Results & Data Vital Signs (Past 12 Hours) Vital Signs Temp Pulse Pulse Resp BP Pulse Ox 10/09/19 14:54 36.9 C 61 24 131/71 95 10/09/19 11:54 36.6 C 57 L 18 125/55 L 93 10/09/19 08:10 54 L 10/09/19 07:40 36.6 C 59 L 16 119/63 94 10/09/19 04:00 37.0 C 60 20 112/62 97 Laboratory Results Laboratory Results - last 24 hr 10/08/19 10/08/19 10/09/19 18:40 19:52 07:26 POC Glucose 138 H 162 H 124 H Medications Administered Current Inpatient Medications Acetaminophen (Tylenol) 650 mg PO Q4H PRN PRN Reason: fever or pain Stop: 11/06/19 20:50 Last Admin: 10/08/19 05:06 Dose: 650 mg Documented by: Amlodipine Besylate (Norvasc) 10 mg PO DAILY [facility] Stop: 11/07/19 08:59 Last Admin: 10/09/19 08:01 Dose: 10 mg Documented by: Atorvastatin Calcium (Lipitor) 10 mg PO HS [facility] Stop: 11/06/19 20:59 Last Admin: 10/08/19 20:04 Dose: 10 mg Documented by: Calcitriol (Rocaltrol) 0.25 mcg PO MoWeFr@0900 [facility] Stop: 11/08/19 08:59 Last Admin: 10/09/19 08:00 Dose: 0.25 mcg Documented by: Calcium Carbonate (Tums) 500 mg PO TIDM [facility] Stop: 11/07/19 07:59 Last Admin: 10/09/19 12:02 Dose: 500 mg Documented by: Dextrose (Dextrose 50%) 25 - 50 ml IV UD PRN; Protocol PRN Reason: Hypoglycemia Protocol Stop: 11/06/19 20:50 Epoetin Rick (Procrit) 10,000 units IV TODAY@0700 [facility] Stop: 10/10/19 23:59 Furosemide (Lasix) 20 mg PO BID17 [facility] Stop: 11/06/19 20:59 Last Admin: 10/09/19 08:01 Dose: 20 mg Documented by: Gabapentin (Neurontin) 100 mg PO QAM [facility] Stop: 11/07/19 08:59 Last Admin: 10/09/19 08:01 Dose: 100 mg Documented by: Gabapentin (Neurontin) 300 mg PO HS [facility] Stop: 11/06/19 20:59 Last Admin: 10/08/19 20:05 Dose: 300 mg Documented by: Glucagon (Glucagen) 1 mg SQ UD PRN; Protocol PRN Reason: Hypoglycemia Protocol Stop: 11/06/19 20:50 Glucose (Dex4 Glucose) 4 - 8 tabs PO UD PRN; Protocol PRN Reason: Hypoglycemia Protocol Stop: 11/06/19 20:50 Glucose (Glucose 40%) 15 - 30 gm PO UD PRN; Protocol PRN Reason: Hypoglycemia Protocol Stop: 11/06/19 20:50 Heparin Sodium (Porcine) (Heparin Iv Bolus) 2,000 units IV ONE ONE Stop: 10/10/19 07:01 Heparin Sodium (Porcine) (Heparin Iv Bolus) 500 units IV Q1H [facility] Stop: 10/10/19 08:01 Hydralazine HCl (Apresoline) 100 mg PO BID [facility] Stop: 11/06/19 20:59 Last Admin: 10/09/19 08:01 Dose: 100 mg Documented by: Ertapenem 500 mg/ Sodium (Chloride) 55 mls @ 110 mls/hr IV DAILY@1600 [facility] Stop: 10/20/19 15:59 Sodium Chloride (Nss 1000ml) 1,000 mls @ 0 mls/hr IV .Q0M PRN PRN Reason: For Hemodialysis Use ONLY Stop: 10/10/19 12:59 Insulin Aspart (Novolog Flexpen) 0 units SC ACHS [facility] Stop: 11/06/19 20:59 Last Admin: 10/09/19 12:02 Dose: 7 units Documented by: Insulin Glargine (Lantus Solostar Pen) 15 units SQ DAILY [facility] Stop: 11/07/19 08:59 Last Admin: 10/09/19 08:00 Dose: 15 units Documented by: Levothyroxine Sodium (Synthroid) 112 mcg PO DAILYBB [facility] Stop: 11/07/19 06:29 Last Admin: 10/09/19 06:08 Dose: 112 mcg Documented by: Meclizine HCl (Antivert) 12.5 mg PO TID PRN PRN Reason: Vertigo Stop: 11/06/19 20:50 Metoprolol Tartrate (Lopressor) 25 mg PO BID [facility] Stop: 11/06/19 20:59 Last Admin: 10/09/19 08:02 Dose: 25 mg Documented by: Miscellaneous (Carbohydrates For Hypoglycemia) 15 - 30 gm PO UD PRN PRN Reason: Hypoglycemia Protocol Stop: 11/06/19 20:50 Multivitamins/Minerals (Multivitamin W/ Minerals Tab) 1 tab PO DAILY [facility] Stop: 11/07/19 08:59 Last Admin: 10/09/19 08:00 Dose: 1 tab Documented by: Vitamin B Complex/Folic Acid (Nephrocaps) 1 cap PO QAM [facility] Stop: 11/07/19 08:59 Last Admin: 10/09/19 08:00 Dose: 1 cap Documented by: Vitamin B Complex/Folic Acid (Nephrocaps) 1 cap PO QAM [facility] Stop: 11/07/19 10:59 Last Admin: 10/09/19 08:00 Dose: 1 cap Documented by: Vitamin D (Vitamin D3) 2,000 units PO QAM [facility] Stop: 11/07/19 08:59 Last Admin: 10/09/19 08:00 Dose: 2,000 units Documented by: Warfarin Sodium (Coumadin) 4 mg PO DAILY@1600 [facility] Stop: 11/07/19 15:59 Last Admin: 10/08/19 18:05 Dose: 4 mg Documented by: PG Care Time/CCT Total # of Minutes Spent Total Time Spent with Patient: Total time spent is greater than 50% in coordination of care (as documented) at patient's floor/unit and/or counseling patient: (1) Urinary tract infection Hematuria presence: without hematuria Urinary tract infection type: site unspecified Qualified Code(s): N39.0 - Urinary tract infection, site not specified
[2019-10-09] MEDS ORDERED: ERTAPENEM SODIUM 500 MG in SODIUM CHLORIDE 0.9% 50 ML IV SCH (16:00)
[2019-10-09] MEDS: WARFARIN SOD 4 MG TAB PO SCH (16:50)
[2019-10-09] MEDS: ATORVASTATIN 10 MG TAB PO SCH (21:33)
[2019-10-09] MEDS: GABAPENTIN 300 MG CAP PO SCH (21:33)
[2019-10-10] MEDS: LEVOTHYROXINE SODIUM 112 MCG TABLET PO SCH (06:19)
[2019-10-10] MEDS ORDERED: HEPARIN SOD (PORCINE) 1000 UNIT/ML 10 ML VIAL IV ONE (07:00)
[2019-10-10] MEDS ORDERED: SODIUM CHLORIDE 0.9% 1000ML 1,000 ML IV PRN (07:00)
[2019-10-10] MEDS ORDERED: EPOETIN ALFA 10,000 UNITS/ML VIAL IV SCH (07:00)
[2019-10-10] MEDS: INSULIN ASPART 100 UNITS/ML 3 ML PEN SC SCH ×4 (09:00→20:19)
[2019-10-10] MEDS: INSULIN GLARGINE SOLOSTAR 100 UNITS/ML 3 ML PEN SQ SCH (09:01)
[2019-10-10 09:06] LABS: Hematocrit (blood only) 30.8 % (37-47); Hemoglobin 10.1 g/dL (12.0-16.0); Mean Corpuscular Hgb Conc 32.8 g/dL (32-36); Mean Corpuscular Volume 97.5 fL (80-100); Mean Platelet Volume 10.2 fL (7.4-10.4); Platelet Count 267 K/uL (130-400); RDW Coefficient of Variation 15.2 % (11.5-14.5); RDW Standard Deviation 53.1 fL (36.4-46.3); Red Blood Count 3.16 M/uL (4.2-5.4); White Blood Count 10.67 K/uL (4.8-10.8)
[2019-10-10 09:42] LABS: BUN Creatinine Ratio 7.1 (10-20); Blood Urea Nitrogen 53 mg/dl (7-18); Calcium 9.6 mg/dl (8.5-10.1); Carbon Dioxide 24 mmol/L (21-32); Chloride 104 mmol/L (98-107); Est GFR (African American) 5.2; Est GFR (Non-African American) 4.5; Glucose 149 mg/dl (70-99); Sodium 138 mmol/L (136-145)
--- NOTE | 2019-10-10 09:54 | Nephrology Progress Note ---
Date of Service October 10, 2019 Assessment & Plan (1) ESRD (end stage renal disease) on dialysis: -- HD today. Orders entered into EMR and HD RN notified. (2) Weakness: -- Continue PT for strengthening (3) Cystitis: -- Urine cx positive for ESBL E. Coli. Now on IV Ertapenem (4) Anemia: -- Will provide DANNA w/ HD treatments (5) Diabetes mellitus with diabetic neuropathy: (6) AF (paroxysmal atrial fibrillation): (7) Hypothyroidism: Subjective Mrs. Pearce was seen & examined in her hospital room this morning. She participated in PT yesterday. She was able to ambulate 15 ft using a walker and assistance. She c/o continued fatigue Review of Systems Constitutional: + weakness; no fever Eyes: no worsening vision and no problem reported Ear, Nose, Mouth, Throat: no problem reported Respiratory: no cough and no dyspnea Cardiovascular: no chest pain, no palpitations and no edema Gastrointestinal: no abdominal pain, no nausea, no vomiting and no diarrhea/loose stools Genitourinary: no dysuria and no hematuria Musculoskeletal: no back pain Integumentary: no rash Neurologic: no falls, no dizziness and no confusion Physical Exam Constitutional: + frail appearing Eyes: PERRL, conjunctivae normal, anicteric sclerae ENMT: external ear and nose normal, oropharynx normal Neck: trachea midline, no thyromegaly (R IJ THC with clean dry dressing in place) Respiratory: normal respiratory effort, lungs clear to auscultation Cardiovascular: Rate/Rhythm: regular rate and regular rhythm Heart Sounds: no murmur Gastrointestinal (Abdomen): normal bowel sounds, soft, nontender, no hepatosplenomegaly Musculoskeletal: Extremities: no cyanosis Skin: no rashes, warm and dry Neurologic: awake; not confused Results & Data Vital Signs (Past 12 Hours) Vital Signs Temp Pulse Pulse Resp BP Pulse Ox 10/10/19 08:00 36.3 C L 55 L 16 128/67 97 10/10/19 04:18 36.9 C 56 L 16 134/67 94 10/10/19 00:58 63 10/09/19 23:08 36.9 C 66 16 105/58 L 95 Laboratory Results Laboratory Tests 10/08/19 06:47 Sodium 138 Potassium 3.6 Chloride 102 Carbon Dioxide 30 BUN 53 H Creatinine 7.20 H* D Glucose 105 H PG Care Time/CCT Total # of Minutes Spent Total Time Spent with Patient: Total time spent is greater than 50% in coordination of care (as documented) at patient's floor/unit and/or counseling patient:
[2019-10-10] MEDS: HEPARIN SOD (PORCINE) 1000 UNIT/ML 10 ML VIAL IV SCH ×2 (10:11→11:03)
[2019-10-10] MEDS: CALCIUM CARBONATE 500 MG CHEWABLE TAB PO SCH ×3 (15:00→16:25)
[2019-10-10] MEDS: HydrALAZINE TAB 50 MG TAB PO SCH ×2 (15:02→20:36)
[2019-10-10] MEDS: METOPROLOL TARTRATE 25 MG TAB PO SCH ×2 (15:03→21:51)
[2019-10-10] MEDS: NEPHROCAPS PO SCH ×2 (15:05)
[2019-10-10] MEDS: GABAPENTIN 100 MG CAP PO SCH (15:06)
[2019-10-10] MEDS: CEROVITE ADV FORMULA TAB PO SCH (15:06)
[2019-10-10] MEDS: AMLODIPINE BESYLATE 5 MG TAB PO SCH (15:06)
[2019-10-10] MEDS: CHOLECALCIFEROL 1,000 UNITS TAB PO SCH (15:07)
--- NOTE | 2019-10-10 15:59 | Hospitalist Progress Note ---
Date of Service October 10, 2019 Assessment & Plan (1) Weakness: multifactorial, due to ongoing HD, deconditioning, new UTI consult PT/OT - participated today plan for rehab, anticipate that she will be ready Monday but not sure if she will have a bed will check for any updates with CM tomorrow morning (2) Urinary tract infection: urine culture growing ESBL E coli no fever, WBC normal on 10/08 and 10/10 started Ertapenem 10/09 plan for US guided IV for 7 days total therapy, can finish at SNF (3) ESRD (end stage renal disease) on dialysis: HD done 10/08 and 10/10, maintain T Th Sat schedule electrolytes stable Dr. Tripathi following (4) Opacified sphenoid sinus: (5) Hypertension: BP stable today on home regimen (6) Hyperlipidemia: (7) Paroxysmal atrial fibrillation: HR in the 60's - 70's, in sinus rhythm (8) Diabetes mellitus with diabetic neuropathy: monitor for hypoglycemia, no episodes (9) Gait disturbance: (10) Gout: (11) Anemia: (12) Hypothyroidism: Subjective no issues today, patient tolerated HD still c/o feeling weak and fatigued most of the day eating okay, trying to eat more but not much of an appetite no fever or chills normal WBC, Hb is 10 electrolytes stable, Cr 7.4 but this was prior to HD discussed plan with CM, not sure if [facility] will have a bed tomorrow reaching out to [facility] as well Review of Systems Review of Systems: All systems reviewed & are unremarkable except as noted in HPI & below Constitutional: + fatigue and + weakness Respiratory: no cough and no dyspnea Cardiovascular: no chest pain and no edema Gastrointestinal: no abdominal pain, no nausea, no vomiting, no constipation and no diarrhea/loose stools Physical Exam Constitutional: WD/WN, vitals as above + overweight Eyes: PERRL, conjunctivae normal, anicteric sclerae ENMT: external ear and nose normal, oropharynx normal Neck: trachea midline, no thyromegaly Respiratory: normal respiratory effort, lungs clear to auscultation Cardiovascular: RRR, no murmur, no edema Gastrointestinal (Abdomen): normal bowel sounds, soft, nontender, no hepatosplenomegaly Musculoskeletal: Head/Neck/Chest: normocephalic and head atraumatic Extremities: extremities normal to inspection and + abnormal strength (generali zed weakness) Skin: no rashes, warm and dry Neurologic: patellar DTR's 2+ bilat, sensation intact and PERRL, EOMI, accommodation nl, no face palsy, no dysarthria Psychiatric: A+Ox3, euthymic affect Lymphatic: no cervical or axillary lymphadenopathy Results & Data Vital Signs (Past 12 Hours) Vital Signs Temp Pulse Pulse Resp BP BP Pulse Ox 10/10/19 14:31 36.9 C 71 16 124/73 95 10/10/19 14:05 36.3 C L 76 159/78 H 10/10/19 14:00 76 159/78 H 10/10/19 13:40 89 132/70 10/10/19 13:20 76 127/75 10/10/19 13:00 71 139/68 10/10/19 12:40 64 140/71 10/10/19 12:20 72 134/68 10/10/19 12:00 65 154/77 H 10/10/19 11:40 63 150/79 H 10/10/19 11:20 78 147/75 H 10/10/19 11:00 67 142/72 H 10/10/19 10:40 64 144/63 H 10/10/19 10:20 62 148/70 H 10/10/19 10:00 63 139/59 L 10/10/19 09:50 36.3 C L 63 10/10/19 08:00 36.3 C L 55 L 16 128/67 97 10/10/19 04:18 36.9 C 56 L 16 134/67 94 Laboratory Results Laboratory Results - last 24 hr 10/09/19 10/09/19 10/09/19 11:37 16:44 20:51 WBC RBC Hgb Hct MCV MCH MCHC RDW Std Deviation RDW Coeff of Jon Plt Count MPV Sodium Potassium Chloride Carbon Dioxide Anion Gap BUN Creatinine Est Cr Clr Drug Dosing Est GFR ( Amer) Est GFR (Non-Af Amer) BUN/Creatinine Ratio Glucose POC Glucose 173 H 154 H 177 H Calcium 10/10/19 10/10/19 10/10/19 07:44 08:31 08:31 WBC 10.67 RBC 3.16 L Hgb 10.1 L Hct 30.8 L MCV 97.5 MCH 32.0 MCHC 32.8 RDW Std Deviation 53.1 H RDW Coeff of Jon 15.2 H Plt Count 267 MPV 10.2 Sodium 138 Potassium TNP Chloride 104 Carbon Dioxide 24 Anion Gap 10.0 BUN 53 H Creatinine 7.41 H* Est Cr Clr Drug Dosing 6.0 Est GFR ( Amer) 5.2 Est GFR (Non-Af Amer) 4.5 BUN/Creatinine Ratio 7.1 L Glucose 149 H POC Glucose 159 H Calcium 9.6 Medications Administered Current Inpatient Medications Acetaminophen (Tylenol) 650 mg PO Q4H PRN PRN Reason: fever or pain Stop: 11/06/19 20:50 Last Admin: 10/08/19 05:06 Dose: 650 mg Documented by: Amlodipine Besylate (Norvasc) 10 mg PO DAILY [facility] Stop: 11/07/19 08:59 Last Admin: 10/10/19 15:06 Dose: 10 mg Documented by: Atorvastatin Calcium (Lipitor) 10 mg PO [facility] Stop: 11/06/19 20:59 Last Admin: 10/09/19 21:33 Dose: 10 mg Documented by: Calcitriol (Rocaltrol) 0.25 mcg PO MoWeFr@0900 [facility] Stop: 11/08/19 08:59 Last Admin: 10/09/19 08:00 Dose: 0.25 mcg Documented by: Calcium Carbonate (Tums) 500 mg PO TIDM [facility] Stop: 11/07/19 07:59 Last Admin: 10/10/19 15:09 Dose: 500 mg Documented by: Dextrose (Dextrose 50%) 25 - 50 ml IV UD PRN; Protocol PRN Reason: Hypoglycemia Protocol Stop: 11/06/19 20:50 Epoetin Rick (Procrit) 10,000 units IV TODAY@0700 [facility] Stop: 10/10/19 23:59 Last Admin: 10/10/19 11:02 Dose: 10,000 units Documented by: Furosemide (Lasix) 20 mg PO BID17 [facility] Stop: 11/06/19 20:59 Last Admin: 10/09/19 16:50 Dose: 20 mg Documented by: Gabapentin (Neurontin) 100 mg PO QAM [facility] Stop: 11/07/19 08:59 Last Admin: 10/10/19 15:06 Dose: 100 mg Documented by: Gabapentin (Neurontin) 300 mg PO [facility] Stop: 11/06/19 20:59 Last Admin: 10/09/19 21:33 Dose: 300 mg Documented by: Glucagon (Glucagen) 1 mg SQ UD PRN; Protocol PRN Reason: Hypoglycemia Protocol Stop: 11/06/19 20:50 Glucose (Dex4 Glucose) 4 - 8 tabs PO UD PRN; Protocol PRN Reason: Hypoglycemia Protocol Stop: 11/06/19 20:50 Glucose (Glucose 40%) 15 - 30 gm PO UD PRN; Protocol PRN Reason: Hypoglycemia Protocol Stop: 11/06/19 20:50 Hydralazine HCl (Apresoline) 100 mg PO BID [facility] Stop: 11/06/19 20:59 Last Admin: 10/10/19 15:02 Dose: 100 mg Documented by: Ertapenem 500 mg/ Sodium (Chloride) 55 mls @ 110 mls/hr IV DAILY@1600 [facility] Stop: 10/20/19 15:59 Insulin Aspart (Novolog Flexpen) 0 units SC ACHS [facility] Stop: 11/06/19 20:59 Last Admin: 10/10/19 13:54 Dose: Not Given Documented by: Insulin Glargine (Lantus Solostar Pen) 15 units SQ DAILY [facility] Stop: 11/07/19 08:59 Last Admin: 10/10/19 09:01 Dose: 15 units Documented by: Levothyroxine Sodium (Synthroid) 112 mcg PO DAILYBB [facility] Stop: 11/07/19 06:29 Last Admin: 10/10/19 06:19 Dose: 112 mcg Documented by: Meclizine HCl (Antivert) 12.5 mg PO TID PRN PRN Reason: Vertigo Stop: 11/06/19 20:50 Metoprolol Tartrate (Lopressor) 25 mg PO BID [facility] Stop: 11/06/19 20:59 Last Admin: 10/10/19 15:03 Dose: 25 mg Documented by: Miscellaneous (Carbohydrates For Hypoglycemia) 15 - 30 gm PO UD PRN PRN Reason: Hypoglycemia Protocol Stop: 11/06/19 20:50 Multivitamins/Minerals (Multivitamin W/ Minerals Tab) 1 tab PO DAILY [facility] Stop: 11/07/19 08:59 Last Admin: 10/10/19 15:06 Dose: 1 tab Documented by: Vitamin B Complex/Folic Acid (Nephrocaps) 1 cap PO QAM [facility] Stop: 11/07/19 08:59 Last Admin: 10/10/19 15:05 Dose: 1 cap Documented by: Vitamin B Complex/[facility]) [facility] [place] Stop: 11/07/19 10:59 Last Admin: 10/10/19 15:05 Dose: 1 cap Documented by: Vitamin D (Vitamin D3) [facility] [place] Stop: 11/07/19 08:59 Last Admin: 10/10/19 15:07 Dose: 2,000 units Documented by: Warfarin Sodium (Coumadin) 4 mg PO DAILY@1600 [facility] Stop: 11/07/19 15:59 Last Admin: 10/09/19 16:50 Dose: 4 mg Documented by: PG Care Time/CCT Total # of Minutes Spent Total Time Spent with Patient: Total time spent is greater than 50% in coordination of care (as documented) at patient's floor/unit and/or counseling patient: (1) Urinary tract infection Hematuria presence: without hematuria Urinary tract infection type: site unspecified Qualified Code(s): N39.0 - Urinary tract infection, site not specified
[2019-10-10] MEDS: WARFARIN SOD 4 MG TAB PO SCH (16:23)
[2019-10-10] MEDS: ERTAPENEM SODIUM 500 MG in SODIUM CHLORIDE 0.9% 50 ML IV SCH (16:24)
[2019-10-10] MEDS: FUROSEMIDE 20 MG TAB PO SCH ×2 (16:56→17:11)
[2019-10-10] MEDS: ATORVASTATIN 10 MG TAB PO SCH (20:36)
[2019-10-10] MEDS: GABAPENTIN 300 MG CAP PO SCH (20:36)
[2019-10-11] MEDS: LEVOTHYROXINE SODIUM 112 MCG TABLET PO SCH (06:33)
[2019-10-11] MEDS: CALCIUM CARBONATE 500 MG CHEWABLE TAB PO SCH ×3 (08:18→16:49)
[2019-10-11] MEDS: CHOLECALCIFEROL 1,000 UNITS TAB PO SCH (08:18)
[2019-10-11] MEDS: AMLODIPINE BESYLATE 5 MG TAB PO SCH (08:19)
[2019-10-11] MEDS: HydrALAZINE TAB 50 MG TAB PO SCH ×2 (08:19→19:43)
[2019-10-11] MEDS: CALCITRIOL 0.25 MCG CAPSULE PO SCH (08:19)
[2019-10-11] MEDS: METOPROLOL TARTRATE 25 MG TAB PO SCH ×2 (08:19→19:44)
[2019-10-11] MEDS: NEPHROCAPS PO SCH ×2 (08:19)
[2019-10-11] MEDS: CEROVITE ADV FORMULA TAB PO SCH (08:19)
[2019-10-11] MEDS: INSULIN GLARGINE SOLOSTAR 100 UNITS/ML 3 ML PEN SQ SCH (08:20)
[2019-10-11] MEDS: FUROSEMIDE 20 MG TAB PO SCH ×2 (08:20→16:49)
[2019-10-11] MEDS: GABAPENTIN 100 MG CAP PO SCH (08:20)
[2019-10-11 08:24] LABS: Hematocrit (blood only) 35.1 % (37-47); Hemoglobin 11.3 g/dL (12.0-16.0); Mean Corpuscular Hemoglobin 31.7 pg (25-34); Mean Corpuscular Hgb Conc 32.2 g/dL (32-36); Mean Corpuscular Volume 98.6 fL (80-100); Nucleated RBC # (auto) 0.06 K/uL (0-0); Nucleated RBC % (auto) 0.5 %; Platelet Count 273 K/uL (130-400); RDW Coefficient of Variation 15.3 % (11.5-14.5); RDW Standard Deviation 53.8 fL (36.4-46.3); Red Blood Count 3.56 M/uL (4.2-5.4); White Blood Count 11.15 K/uL (4.8-10.8)
[2019-10-11] MEDS: INSULIN ASPART 100 UNITS/ML 3 ML PEN SC SCH ×4 (08:25→21:09)
[2019-10-11 09:03] LABS: BUN Creatinine Ratio 6.1 (10-20); Calcium 10.5 mg/dl (8.5-10.1); Creatinine Clr Calc Pharmacy 7.7 ml/min; Est GFR (African American) 7.1; Est GFR (Non-African American) 6.2; Potassium 4.2 mmol/L (3.5-5.1)
--- NOTE | 2019-10-11 10:34 | Nephrology Progress Note ---
Date of Service October 11, 2019 Assessment & Plan (1) ESRD (end stage renal disease) on dialysis: -- Will schedule next HD for am. (2) Weakness: -- Continue PT for strengthening -- Discharge planning to set up outpatient PT (3) Cystitis: -- Urine cx positive for ESBL E. Coli. Now on IV Ertapenem (4) Anemia: -- Will provide DANNA w/ HD treatments (5) Diabetes mellitus with diabetic neuropathy: (6) AF (paroxysmal atrial fibrillation): (7) Hypothyroidism: Subjective Mrs. Pearce was seen & examined in her hospital room this morning. She c/o fatigue but is anxious to participate in PT today. She was last dialyzed yesterday without complication Review of Systems Constitutional: + weakness; no fever Eyes: no worsening vision and no problem reported Ear, Nose, Mouth, Throat: no problem reported Respiratory: no cough and no dyspnea Cardiovascular: no chest pain, no palpitations and no edema Gastrointestinal: no abdominal pain, no nausea, no vomiting and no diarrhea/loose stools Genitourinary: no dysuria and no hematuria Musculoskeletal: no back pain Integumentary: no rash Neurologic: no falls, no dizziness and no confusion Physical Exam Constitutional: + frail appearing; not in distress Eyes: PERRL, conjunctivae normal, anicteric sclerae ENMT: external ear and nose normal, oropharynx normal Neck: trachea midline, no thyromegaly (R IJ THC with clean dry dressing in place) Respiratory: normal respiratory effort, lungs clear to auscultation Cardiovascular: Rate/Rhythm: regular rate, regular rhythm and + irregularly irregular Heart Sounds: no murmur Gastrointestinal (Abdomen): normal bowel sounds, soft, nontender, no hepatosplenomegaly Musculoskeletal: Extremities: no cyanosis Skin: no rashes, warm and dry Neurologic: awake; not confused Results & Data Vital Signs (Past 12 Hours) Vital Signs Temp Pulse Pulse Resp BP Pulse Ox 10/11/19 08:00 66 10/11/19 07:44 37.0 C 71 17 103/62 97 10/11/19 03:06 36.9 C 64 19 118/68 92 Laboratory Results Laboratory Tests 10/11/19 10/11/19 07:56 07:56 WBC 11.15 H Hgb 11.3 L Hct 35.1 L Plt Count 273 Sodium 136 Potassium 4.2 Chloride 102 Carbon Dioxide 23 BUN 35 H Creatinine 5.67 H* D Glucose 131 H Calcium 10.5 H PG Care Time/CCT Total # of Minutes Spent Total Time Spent with Patient: Total time spent is greater than 50% in coordination of care (as documented) at patient's floor/unit and/or counseling patient:
[2019-10-11] MEDS: ERTAPENEM SODIUM 500 MG in SODIUM CHLORIDE 0.9% 50 ML IV SCH (15:09)
[2019-10-11] MEDS: WARFARIN SOD 4 MG TAB PO SCH ×2 (15:10→16:49)
--- NOTE | 2019-10-11 15:40 | Hospitalist Progress Note ---
Date of Service October 11, 2019 Assessment & Plan (1) Weakness: multifactorial, due to ongoing HD, deconditioning, new UTI consult PT/OT - participated today, walked to chair and sat in chair for long time plan for rehab, medically ready today, no bed plan for discharge to SNF rehab Monday/Monday first choice is [facility], [facility] is back up (2) Urinary tract infection: urine culture growing ESBL E coli no fever, WBC 11k today started Ertapenem 10/09 US guided IV placed needs 7-10 days total therapy, can finish at SNF Ertapenem 1gm IV daily (3) ESRD (end stage renal disease) on dialysis: HD done 10/08 and 10/10, maintain T Th Sat schedule electrolytes stable Dr. Palma following plan for HD tomorrow (4) Hypertension: BP stable today on home regimen (5) Hyperlipidemia: (6) Paroxysmal atrial fibrillation: HR in the 60's - 70's, in sinus rhythm INR is 2.0, continue Coumadin (7) Diabetes mellitus with diabetic neuropathy: monitor for hypoglycemia, no episodes (8) Gait disturbance: (9) Gout: (10) Anemia: (11) Hypothyroidism: Subjective patient feels fatigued today however, she reports she was able to walk to the chair today with OT and sat in the chair for some time no HD today poor appetite continues no chest pain, no dyspnea, no fever/chills, no nausea/vomiting, diarrhea discussed that there are no beds at [facility], plan to reassess on Monday, she will be here over the weekend Review of Systems Review of Systems: All systems reviewed & are unremarkable except as noted in HPI & below Physical Exam Constitutional: WD/WN, vitals as above + overweight Eyes: PERRL, conjunctivae normal, anicteric sclerae ENMT: external ear and nose normal, oropharynx normal Neck: trachea midline, no thyromegaly Respiratory: normal respiratory effort, lungs clear to auscultation Cardiovascular: RRR, no murmur, no edema Gastrointestinal (Abdomen): normal bowel sounds, soft, nontender, no hepatosplenomegaly Musculoskeletal: Head/Neck/Chest: normocephalic and head atraumatic Extremities: extremities normal to inspection and + abnormal strength (generalized weakness) Skin: no rashes, warm and dry Neurologic: patellar DTR's 2+ bilat, sensation intact and PERRL, EOMI, accommodation nl, no face palsy, no dysarthria Psychiatric: A+Ox3, euthymic affect Lymphatic: no cervical or axillary lymphadenopathy Results & Data Vital Signs (Past 12 Hours) Vital Signs Temp Pulse Pulse Resp BP BP Pulse Ox 10/11/19 15:15 36.5 C 65 18 115/71 96 10/11/19 11:54 36.5 C 68 18 82/54 L 93/60 L 97 10/11/19 08:00 66 10/11/19 07:44 37.0 C 71 17 103/62 97 Laboratory Results Laboratory Results - last 24 hr 10/10/19 10/10/19 10/10/19 11:41 16:27 20:07 WBC RBC Hgb Hct MCV MCH MCHC RDW Std Deviation RDW Coeff of Jon Plt Count MPV Absolute Nucleated RBC Nucleated RBC % (auto) Sodium Potassium Chloride Carbon Dioxide Anion Gap BUN Creatinine Est Cr Clr Drug Dosing Est GFR ( Amer) Est GFR (Non-Af Amer) BUN/Creatinine Ratio Glucose POC Glucose 145 H 192 H 144 H Calcium 10/11/19 10/11/19 10/11/19 07:45 07:56 07:56 WBC 11.15 H RBC 3.56 L Hgb 11.3 L Hct 35.1 L MCV 98.6 MCH 31.7 MCHC 32.2 RDW Std Deviation 53.8 H RDW Coeff of Jon 15.3 H Plt Count 273 MPV 10.0 Absolute Nucleated RBC 0.06 H Nucleated RBC % (auto) 0.5 Sodium 136 Potassium 4.2 Chloride 102 Carbon Dioxide 23 Anion Gap 11.0 BUN 35 H Creatinine 5.67 H* D Est Cr Clr Drug Dosing 7.7 Est GFR ( Amer) 7.1 Est GFR (Non-Af Amer) 6.2 BUN/Creatinine Ratio 6.1 L Glucose 131 H POC Glucose 124 H Calcium 10.5 H Medications Administered Current Inpatient Medications Acetaminophen (Tylenol) 650 mg PO Q4H PRN PRN Reason: fever or pain Stop: 11/06/19 20:50 Last Admin: 10/08/19 05:06 Dose: 650 mg Documented by: Amlodipine Besylate (Norvasc) 10 mg PO DAILY [facility] Stop: 11/07/19 08:59 Last Admin: 10/11/19 08:19 Dose: 10 mg Documented by: Atorvastatin Calcium (Lipitor) 10 mg PO HS [facility] Stop: 11/06/19 20:59 Last Admin: 10/10/19 20:36 Dose: 10 mg Documented by: Calcitriol (Rocaltrol) 0.25 mcg PO MoWeFr@0900 [facility] Stop: 11/08/19 08:59 Last Admin: 10/11/19 08:19 Dose: 0.25 mcg Documented by: Calcium Carbonate (Tums) 500 mg PO TIDM [facility] Stop: 11/07/19 07:59 Last Admin: 10/11/19 11:47 Dose: 500 mg Documented by: Dextrose (Dextrose 50%) 25 - 50 ml IV UD PRN; Protocol PRN Reason: Hypoglycemia Protocol Stop: 11/06/19 20:50 Furosemide (Lasix) 20 mg PO BID17 [facility] Stop: 11/06/19 20:59 Last Admin: 10/11/19 08:20 Dose: 20 mg Documented by: Gabapentin (Neurontin) 100 mg PO QAM [facility] Stop: 11/07/19 08:59 Last Admin: 10/11/19 08:20 Dose: 100 mg Documented by: Gabapentin (Neurontin) 300 mg PO HS [facility] Stop: 11/06/19 20:59 Last Admin: 10/10/19 20:36 Dose: 300 mg Documented by: Glucagon (Glucagen) 1 mg SQ UD PRN; Protocol PRN Reason: Hypoglycemia Protocol Stop: 11/06/19 20:50 Glucose (Dex4 Glucose) 4 - 8 tabs PO UD PRN; Protocol PRN Reason: Hypoglycemia Protocol Stop: 11/06/19 20:50 Glucose (Glucose 40%) 15 - 30 gm PO UD PRN; Protocol PRN Reason: Hypoglycemia Protocol Stop: 11/06/19 20:50 Heparin Sodium (Porcine) (Heparin Iv Bolus) 2,000 units IV ONE ONE Stop: 10/12/19 07:01 Heparin Sodium (Porcine) (Heparin Iv Bolus) 500 units IV Q1H [facility] Stop: 10/12/19 08:01 Hydralazine HCl (Apresoline) 100 mg PO BID [facility] Stop: 11/06/19 20:59 Last Admin: 10/11/19 08:19 Dose: 100 mg Documented by: Ertapenem 500 mg/ Sodium (Chloride) 55 mls @ 110 mls/hr IV DAILY@1600 [facility] Stop: 10/20/19 15:59 Last Admin: 10/11/19 15:09 Dose: 110 mls/hr Documented by: Sodium Chloride (Nss 1000ml) 1,000 mls @ 0 mls/hr IV .Q0M PRN PRN Reason: For Hemodialysis Use ONLY Stop: 10/12/19 12:59 Insulin Aspart (Novolog Flexpen) 0 units SC ACHS [facility] Stop: 11/06/19 20:59 Last Admin: 10/11/19 12:34 Dose: 5 units Documented by: Insulin Glargine (Lantus Solostar Pen) 15 units SQ DAILY [facility] Stop: 11/07/19 08:59 Last Admin: 10/11/19 08:20 Dose: 15 units Documented by: Levothyroxine Sodium (Synthroid) 112 mcg PO DAILYBB [facility] Stop: 11/07/19 06:29 Last Admin: 10/11/19 06:33 Dose: 112 mcg Documented by: Meclizine HCl (Antivert) 12.5 mg PO TID PRN PRN Reason: Vertigo Stop: 11/06/19 20:50 Metoprolol Tartrate (Lopressor) 25 mg PO BID [facility] Stop: 11/06/19 20:59 Last Admin: 10/11/19 08:19 Dose: 25 mg Documented by: Miscellaneous (Carbohydrates For Hypoglycemia) 15 - 30 gm PO UD PRN PRN Reason: Hypoglycemia Protocol Stop: 11/06/19 20:50 Vitamin B Complex/Folic Acid (Nephrocaps) 1 cap PO QAM [facility] Stop: 11/07/19 10:59 Last Admin: 10/11/19 08:19 Dose: 1 cap Documented by: Warfarin Sodium (Coumadin) 4 mg PO DAILY@1600 [facility] Stop: 11/07/19 15:59 Last Admin: 10/11/19 15:10 Dose: 4 mg Documented by: PG Care Time/CCT Total # of Minutes Spent Total Time Spent with Patient: Total time spent is greater than 50% in coordination of care (as documented) at patient's floor/unit and/or counseling patient: (1) Urinary tract infection Hematuria presence: without hematuria Urinary tract infection type: site unspecified Qualified Code(s): N39.0 - Urinary tract infection, site not specified
[2019-10-11 16:12] LABS: Prothrombin Time 19.7 Seconds (9.0-12.0)
[2019-10-11] MEDS: ATORVASTATIN 10 MG TAB PO SCH (19:43)
[2019-10-11] MEDS: GABAPENTIN 300 MG CAP PO SCH (19:44)
[2019-10-12] MEDS: LEVOTHYROXINE SODIUM 112 MCG TABLET PO SCH (06:17)
[2019-10-12] MEDS ORDERED: HEPARIN SOD (PORCINE) 1000 UNIT/ML 10 ML VIAL IV ONE (07:00)
[2019-10-12] MEDS ORDERED: SODIUM CHLORIDE 0.9% 1000ML 1,000 ML IV PRN (07:00)
[2019-10-12] MEDS: CALCIUM CARBONATE 500 MG CHEWABLE TAB PO SCH ×3 (08:54→17:18)
[2019-10-12] MEDS: INSULIN ASPART 100 UNITS/ML 3 ML PEN SC SCH ×4 (08:55→21:12)
[2019-10-12] MEDS: NEPHROCAPS PO SCH (08:57)
[2019-10-12] MEDS: FUROSEMIDE 20 MG TAB PO SCH ×2 (08:57→17:18)
[2019-10-12] MEDS: GABAPENTIN 100 MG CAP PO SCH (08:57)
[2019-10-12] MEDS: INSULIN GLARGINE SOLOSTAR 100 UNITS/ML 3 ML PEN SQ SCH (08:58)
--- NOTE | 2019-10-12 11:18 | Nephrology Progress Note ---
Date of Service October 12, 2019 Assessment & Plan (1) ESRD (end stage renal disease) on dialysis: -- HD today. Limit UF to 1 L. 2K bath -- Recheck PRP in am (2) Weakness: -- Worked on ADL's and standing from a lying position yesterday in PT. SaO2 remained 97% on RA -- Discharge planning working on [employer] or [employer] (3) Cystitis: -- Urine cx positive for ESBL E. Coli. Remains on IV Ertapenem (4) Anemia: -- Will provide DANNA w/ HD treatments (5) Diabetes mellitus with diabetic neuropathy: (6) AF (paroxysmal atrial fibrillation): (7) Hypothyroidism: Subjective Mrs. Pearce was seen & examined in her hospital room this morning. She complains of fatigue but did note that she was able to participate in PT yesterday. Review of Systems Constitutional: + weakness; no fever Eyes: no worsening vision and no problem reported Ear, Nose, Mouth, Throat: no problem reported Respiratory: no cough and no dyspnea Cardiovascular: no chest pain, no palpitations and no edema Gastrointestinal: no abdominal pain, no nausea, no vomiting and no diarrhea/loose stools Genitourinary: no dysuria and no hematuria Musculoskeletal: no back pain Integumentary: no rash Neurologic: no falls, no dizziness and no confusion Physical Exam Constitutional: + frail appearing; not in distress Eyes: PERRL, conjunctivae normal, anicteric sclerae ENMT: external ear and nose normal, oropharynx normal Neck: trachea midline, no thyromegaly (R IJ THC with clean dry dressing in place) Respiratory: normal respiratory effort, lungs clear to auscultation Cardiovascular: Rate/Rhythm: regular rate, regular rhythm and + irregularly irregular Heart Sounds: no murmur Gastrointestinal (Abdomen): normal bowel sounds, soft, nontender, no hepatosplenomegaly Musculoskeletal: Extremities: no cyanosis Skin: no rashes, warm and dry Neurologic: awake; not confused Results & Data Vital Signs (Past 12 Hours) Vital Signs Temp Pulse Pulse Resp BP BP Pulse Ox 10/12/19 09:46 73 10/12/19 07:27 36.8 C 71 16 115/69 92 10/12/19 03:30 36.7 C 67 20 117/65 93 10/12/19 02:12 58 L PG Care Time/CCT Total # of Minutes Spent Total Time Spent with Patient: Total time spent is greater than 50% in coordination of care (as documented) at patient's floor/unit and/or counseling patient:
--- NOTE | 2019-10-12 13:40 | Hospitalist Progress Note ---
Date of Service October 12, 2019 Assessment & Plan (1) Anemia: Related to chronic disease and end-stage renal insufficiency. Continue monitoring H&H. H&H stable for now. Present on Admission?: Yes (2) Weakness: multifactorial, due to ongoing HD, deconditioning, new UTI Continue PT/OT Hopefully patient will get the job in [facility] where she can also have hemodialysis done. Waiting on bed Present on Admission?: Yes (3) Urinary tract infection: Urine culture growing ESBL E coli Continue Ertapenem 10/09 US guided IV placed needs 7-10 days total therapy, can finish at SNF Ertapenem 1gm IV daily Present on Admission?: Yes (4) ESRD (end stage renal disease) on dialysis: HD done 10/08 and 10/10, maintain T Th Sat schedule electrolytes stable Dr. Palma following (5) Hypertension: BP stable today on home regimen (6) Hyperlipidemia: Continue atorvastatin 10 mg p.o. nightly Present on Admission?: Yes (7) Paroxysmal atrial fibrillation: HR in the 60's - 70's, in sinus rhythm INR is 2.0, continue Coumadin Present on Admission?: Yes (8) Diabetes mellitus with diabetic neuropathy: monitor for hypoglycemia, no episodes Present on Admission?: Yes (9) Gait disturbance: Continue physical and Occupational Therapy Present on Admission?: Yes (10) Hypothyroidism: Continue home dose of levothyroxine 112 MCG's p.o. every morning Present on Admission?: Yes Subjective Patient seen and examined at the bedside. Patient is trying to cooperate with physical therapy. She was short of breath and did not perform very well because of generalized weakness. Patient denies fever, chills, chest pain, abdominal pain, frequency, urgency, hematuria, dysuria. Patient is afebrile. Review of Systems Review of Systems: All systems reviewed & are unremarkable except as noted in HPI & below Physical Exam Constitutional: WD/WN, vitals as above + frail appearing and + overweight; not in distress Eyes: PERRL, conjunctivae normal, anicteric sclerae ENMT: external ear and nose normal, oropharynx normal Neck: trachea midline, no thyromegaly (R IJ THC with clean dry dressing in james ce) Respiratory: normal respiratory effort, lungs clear to auscultation Cardiovascular: RRR, no murmur, no edema Rate/Rhythm: regular rate, regular rhythm and + irregularly irregular Heart Sounds: no murmur Gastrointestinal (Abdomen): normal bowel sounds, soft, nontender, no hepatosplenomegaly Musculoskeletal: Head/Neck/Chest: normocephalic and head atraumatic Extremities: extremities normal to inspection and + abnormal strength (generalized weakness); no cyanosis Skin: no rashes, warm and dry Neurologic: patellar DTR's 2+ bilat, sensation intact and PERRL, EOMI, accommodation nl, no face palsy, no dysarthria awake; not confused Psychiatric: A+Ox3, euthymic affect Lymphatic: no cervical or axillary lymphadenopathy Results & Data Vital Signs (Past 12 Hours) Vital Signs Temp Pulse Pulse Pulse Resp BP BP 10/12/19 13:00 80 95/48 L 10/12/19 12:40 81 125/57 L 10/12/19 12:20 78 119/54 L 10/12/19 12:19 36.8 C 81 75 10/12/19 11:21 36.8 C 75 16 125/74 10/12/19 09:46 73 10/12/19 07:27 36.8 C 71 16 10/12/19 03:30 36.7 C 67 20 10/12/19 02:12 58 L BP BP Pulse Ox 10/12/19 13:00 10/12/19 12:40 10/12/19 12:20 10/12/19 12:19 10/12/19 11:21 95 10/12/19 09:46 10/12/19 07:27 115/69 92 10/12/19 03:30 117/65 93 10/12/19 02:12 PG Care Time/CCT Total # of Minutes Spent Total Time Spent with Patient: Total time spent is greater than 50% in coordination of care (as documented) at patient's floor/unit and/or counseling patient: (1) Urinary tract infection Hematuria presence: without hematuria Urinary tract infection type: site unspecified Qualified Code(s): N39.0 - Urinary tract infection, site not specified
[2019-10-12] MEDS: HydrALAZINE TAB 50 MG TAB PO SCH ×2 (15:03→21:06)
[2019-10-12] MEDS: METOPROLOL TARTRATE 25 MG TAB PO SCH ×2 (15:03→21:03)
[2019-10-12] MEDS: AMLODIPINE BESYLATE 5 MG TAB PO SCH (15:03)
[2019-10-12] MEDS: HEPARIN SOD (PORCINE) 1000 UNIT/ML 10 ML VIAL IV SCH ×2 (15:04→15:05)
[2019-10-12] MEDS: WARFARIN SOD 4 MG TAB PO SCH (17:16)
[2019-10-12] MEDS: ERTAPENEM SODIUM 500 MG in SODIUM CHLORIDE 0.9% 50 ML IV SCH (17:21)
[2019-10-12] MEDS: ATORVASTATIN 10 MG TAB PO SCH (21:05)
[2019-10-12] MEDS: GABAPENTIN 300 MG CAP PO SCH (21:05)
[2019-10-13 07:51] LABS: Hematocrit (blood only) 33.7 % (37-47); Hemoglobin 10.9 g/dL (12.0-16.0); Mean Corpuscular Hemoglobin 31.8 pg (25-34); Mean Corpuscular Hgb Conc 32.3 g/dL (32-36); Mean Corpuscular Volume 98.3 fL (80-100); Mean Platelet Volume 9.6 fL (7.4-10.4); Platelet Count 236 K/uL (130-400); RDW Coefficient of Variation 15.9 % (11.5-14.5); RDW Standard Deviation 54.4 fL (36.4-46.3); Red Blood Count 3.43 M/uL (4.2-5.4); White Blood Count 11.25 K/uL (4.8-10.8)
[2019-10-13] MEDS: FUROSEMIDE 20 MG TAB PO SCH ×2 (08:19→16:27)
[2019-10-13] MEDS: INSULIN GLARGINE SOLOSTAR 100 UNITS/ML 3 ML PEN SQ SCH (08:19)
[2019-10-13] MEDS: METOPROLOL TARTRATE 25 MG TAB PO SCH ×2 (08:19→20:58)
[2019-10-13] MEDS: HydrALAZINE TAB 50 MG TAB PO SCH ×2 (08:19→20:58)
[2019-10-13] MEDS: CALCIUM CARBONATE 500 MG CHEWABLE TAB PO SCH ×3 (08:21→16:27)
[2019-10-13] MEDS: NEPHROCAPS PO SCH (08:21)
[2019-10-13] MEDS: AMLODIPINE BESYLATE 5 MG TAB PO SCH (08:21)
[2019-10-13] MEDS: LEVOTHYROXINE SODIUM 112 MCG TABLET PO SCH (08:22)
[2019-10-13] MEDS: INSULIN ASPART 100 UNITS/ML 3 ML PEN SC SCH ×4 (08:23→20:58)
[2019-10-13 08:37] LABS: BUN Creatinine Ratio 5.7 (10-20); Calcium 9.2 mg/dl (8.5-10.1); Creatinine Clr Calc Pharmacy 7.9 ml/min; Est GFR (African American) 7.2; Est GFR (Non-African American) 6.2; Potassium 4.3 mmol/L (3.5-5.1)
--- NOTE | 2019-10-13 09:59 | Nephrology Progress Note ---
Date of Service October 13, 2019 Assessment & Plan (1) ESRD (end stage renal disease) on dialysis: -- No acute indication for HD today. Will plan next HD on Monday to maintain TTS schedule -- Recheck PRP in am -- Will need AVF created once fully recovered from hospitalization (2) Cystitis: -- Urine cx positive for ESBL E. Coli. Remains on IV Ertapenem (3) Anemia: -- Will provide DANNA w/ HD treatments (4) Weakness: -- Continue inpatient PT for strengthening -- Discharge planning working on [employer] (5) Diabetes mellitus with diabetic neuropathy: (6) AF (paroxysmal atrial fibrillation): (7) Hypothyroidism: Subjective Mrs. Pearce was seen & examined in her hospital room this morning. She reports fatigue but wishes to work w/ PT for strengthening. Mrs. Pearce was last dialyzed yesterday via R IJ THC. Only 700 cc UF removed. There were no complications. Review of Systems Constitutional: + weakness; no fever Eyes: no worsening vision and no problem reported Ear, Nose, Mouth, Throat: no problem reported Respiratory: no cough and no dyspnea Cardiovascular: no chest pain, no palpitations and no edema Gastrointestinal: no abdominal pain, no nausea, no vomiting and no diarrhea/loose stools Genitourinary: no dysuria and no hematuria Musculoskeletal: no back pain Integumentary: no rash Neurologic: no falls, no dizziness and no confusion Physical Exam Constitutional: + frail appearing; not in distress Eyes: PERRL, conjunctivae normal, anicteric sclerae ENMT: external ear and nose normal, oropharynx normal Neck: trachea midline, no thyromegaly (R IJ THC with clean dry dressing in place) Respiratory: normal respiratory effort, lungs clear to auscultation Cardiovascular: Rate/Rhythm: regular rate, regular rhythm and + irregularly irregular Heart Sounds: no murmur Gastrointestinal (Abdomen): normal bowel sounds, soft, nontender, no hepatosplenomegaly Musculoskeletal: Extremities: no cyanosis Skin: no rashes, warm and dry Neurologic: awake; not confused Results & Data Vital Signs (Past 12 Hours) Vital Signs Temp Pulse Pulse Resp BP Pulse Ox 10/13/19 07:30 36.9 C 63 16 101/60 94 10/13/19 07:21 64 10/12/19 22:25 36.7 C 81 18 149/74 H 95 Laboratory Results Laboratory Tests 10/13/19 10/13/19 07:20 07:20 WBC 11.25 H Hgb 10.9 L Hct 33.7 L Plt Count 236 Sodium 138 Potassium 4.3 Chloride 105 Carbon Dioxide 24 BUN 32 H Creatinine 5.62 H* Glucose 126 H PG Care Time/CCT Total # of Minutes Spent Total Time Spent with Patient: Total time spent is greater than 50% in coordination of care (as documented) at patient's floor/unit and/or counseling patient:
[2019-10-13] MEDS: GABAPENTIN 100 MG CAP PO SCH (10:44)
[2019-10-13] MEDS: ERTAPENEM SODIUM 500 MG in SODIUM CHLORIDE 0.9% 50 ML IV SCH (16:27)
[2019-10-13] MEDS: WARFARIN SOD 4 MG TAB PO SCH (16:36)
--- NOTE | 2019-10-13 17:30 | Hospitalist Progress Note ---
Date of Service October 13, 2019 Assessment & Plan (1) Anemia: Related to chronic disease and end-stage renal insufficiency. Continue monitoring H&H. H&H stable for now. (2) Weakness: multifactorial, due to ongoing HD, deconditioning, new UTI Continue PT/OT Hopefully patient will get the bed in [facility] where she can also have hemodialysis TTS. Waiting on bed (3) Urinary tract infection: Urine culture growing ESBL E coli Continue Ertapenem 10/09 US guided IV placed needs 7-10 days total therapy, can finish at [facility] Ertapenem 1gm IV daily (4) ESRD (end stage renal disease) on dialysis: HD done 10/08 and 10/10, maintain Mon schedule electrolytes stable Patient will have hemodialysis on Monday to maintain TTS schedule. Recheck PRP in a.m. Patient will need AVF placed once when she is fully recovered from hospitalization. Dr. Palma nephrology following (5) Hypertension: BP stable today on home regimen (6) Hyperlipidemia: Continue atorvastatin 10 mg p.o. nightly (7) Paroxysmal atrial fibrillation: HR in the 60's - 70's, in sinus rhythm INR is 2.0, continue Coumadin (8) Diabetes mellitus with diabetic neuropathy: monitor for hypoglycemia, no episodes (9) Gait disturbance: Continue physical and Occupational Therapy (10) Hypothyroidism: Continue home dose of levothyroxine 112 MCG's p.o. every morning Subjective Patient seen and examined at the bedside. She was comfortably resting in the bed. Continues to complain of generalized weakness and willing to do physical therapy. P.o. intake is good. Patient is afebrile. Patient denies fever, chills, chest pain, abdominal pain, frequency, urgency, hematuria, dysuria. Patient will have hemodialysis on Monday to maintain TTS schedule. Recheck PRP in a.m. patient will need AVF placed once when she is fully recovered from hospitalization. Review of Systems Review of Systems: All systems reviewed & are unremarkable except as noted in HPI & below Physical Exam Constitutional: WD/WN, vitals as above + overweight Eyes: PERRL, conjunctivae normal, anicteric sclerae ENMT: external ear and nose normal, oropharynx normal Neck: trachea midline, no thyromegaly (R IJ THC with clean dry dressing in place) Respiratory: normal respiratory effort, lungs clear to auscultation Cardiovascular: RRR, no murmur, no edema Rate/Rhythm: regular rate, regular rhythm and + irregularly irregular Heart Sounds: no murmur Gastrointestinal (Abdomen): normal bowel sounds, soft, nontender, no hepatospl enomegaly Musculoskeletal: Head/Neck/Chest: normocephalic and head atraumatic Extremities: extremities normal to inspection and + abnormal strength (generalized weakness); no cyanosis Skin: no rashes, warm and dry Neurologic: patellar DTR's 2+ bilat, sensation intact and PERRL, EOMI, accommodation nl, no face palsy, no dysarthria awake; not confused Psychiatric: A+Ox3, euthymic affect Lymphatic: no cervical or axillary lymphadenopathy Results & Data Vital Signs (Past 12 Hours) Vital Signs Temp Pulse Pulse Resp BP Pulse Ox 10/13/19 16:52 64 10/13/19 15:10 36.5 C 62 16 112/64 95 10/13/19 07:30 36.9 C 63 16 101/60 94 10/13/19 07:21 64 PG Care Time/CCT Total # of Minutes Spent Total Time Spent with Patient: Total time spent is greater than 50% in coordination of care (as documented) at patient's floor/unit and/or counseling patient: (1) Urinary tract infection Hematuria presence: without hematuria Urinary tract infection type: site unspecified Qualified Code(s): N39.0 - Urinary tract infection, site not specified
[2019-10-13] MEDS: ATORVASTATIN 10 MG TAB PO SCH (20:58)
[2019-10-13] MEDS: GABAPENTIN 300 MG CAP PO SCH (20:58)
[2019-10-14 05:55] LABS: Hemoglobin 10.5 g/dL (12.0-16.0); Mean Corpuscular Hemoglobin 31.6 pg (25-34); Mean Corpuscular Hgb Conc 31.8 g/dL (32-36); Mean Corpuscular Volume 99.4 fL (80-100); Mean Platelet Volume 9.7 fL (7.4-10.4); Platelet Count 234 K/uL (130-400); RDW Coefficient of Variation 16.1 % (11.5-14.5); RDW Standard Deviation 54.1 fL (36.4-46.3); Red Blood Count 3.32 M/uL (4.2-5.4); White Blood Count 11.97 K/uL (4.8-10.8)
[2019-10-14] MEDS: LEVOTHYROXINE SODIUM 112 MCG TABLET PO SCH (06:23)
[2019-10-14 07:02] LABS: BUN Creatinine Ratio 6.9 (10-20); Creatinine Clr Calc Pharmacy 5.4 ml/min; Est GFR (African American) 4.5; Est GFR (Non-African American) 3.9; Potassium 4.5 mmol/L (3.5-5.1)
[2019-10-14] MEDS: FUROSEMIDE 20 MG TAB PO SCH ×2 (07:28→17:02)
[2019-10-14] MEDS: CALCITRIOL 0.25 MCG CAPSULE PO SCH (07:28)
[2019-10-14] MEDS: GABAPENTIN 100 MG CAP PO SCH (07:28)
[2019-10-14] MEDS: NEPHROCAPS PO SCH (07:28)
[2019-10-14] MEDS: AMLODIPINE BESYLATE 5 MG TAB PO SCH (07:28)
[2019-10-14] MEDS: METOPROLOL TARTRATE 25 MG TAB PO SCH ×2 (07:29→20:27)
[2019-10-14] MEDS: CALCIUM CARBONATE 500 MG CHEWABLE TAB PO SCH ×3 (07:29→17:02)
[2019-10-14] MEDS: HydrALAZINE TAB 50 MG TAB PO SCH ×2 (07:29→20:29)
[2019-10-14] MEDS: INSULIN ASPART 100 UNITS/ML 3 ML PEN SC SCH ×4 (08:19→20:28)
[2019-10-14] MEDS: INSULIN GLARGINE SOLOSTAR 100 UNITS/ML 3 ML PEN SQ SCH (08:20)
--- NOTE | 2019-10-14 08:41 | Hospitalist Progress Note ---
Date of Service October 14, 2019 Assessment & Plan (1) Anemia: Related to chronic disease and end-stage renal insufficiency. Continue monitoring H&H. H&H stable for now. (2) Weakness: multifactorial, due to ongoing HD, deconditioning, new UTI Continue PT/OT Hopefully patient will get the bed in [facility] where she can also have hemodialysis TTS. Waiting on bed (3) Urinary tract infection: Urine culture growing ESBL E coli Continue Ertapenem 10/09 US guided IV placed needs 7-10 days total therapy, can finish at [facility] Ertapenem 1gm IV daily (4) ESRD (end stage renal disease) on dialysis: HD done 10/08 and 10/10, maintain Mon schedule electrolytes stable Patient will have hemodialysis on Monday to maintain TTS schedule. Recheck PRP in a.m. Patient will need AVF placed once when she is fully recovered from hospitalization. Dr. Palma nephrology following (5) Hypertension: BP stable today on home regimen (6) Hyperlipidemia: Continue atorvastatin 10 mg p.o. nightly (7) Paroxysmal atrial fibrillation: HR in the 60's - 70's, in sinus rhythm INR is 2.0, continue Coumadin (8) Diabetes mellitus with diabetic neuropathy: monitor for hypoglycemia, no episodes (9) Gait disturbance: Continue physical and Occupational Therapy (10) Hypothyroidism: Continue home dose of levothyroxine 112 MCG's p.o. every morning Subjective Patient seen and examined at the bedside. She was comfortably resting in the bed. Continues to complain of generalized weakness and willing to do physical therapy. P.o. intake is good. Patient is afebrile. Patient denies fever, chills, chest pain, abdominal pain, frequency, urgency, hematuria, dysuria. Patient will have hemodialysis on Monday to maintain TTS schedule. Review of Systems Review of Systems: All systems reviewed & are unremarkable except as noted in HPI & below Physical Exam Constitutional: WD/WN, vitals as above + overweight Eyes: PERRL, conjunctivae normal, anicteric sclerae ENMT: external ear and nose normal, oropharynx normal Neck: trachea midline, no thyromegaly (R IJ THC with clean dry dressing in place) Respiratory: normal respiratory effort, lungs clear to auscultation Cardiovascular: RRR, no murmur, no edema Rate/Rhythm: regular rate, regular rhythm and + irregularly irregular Heart Sounds: no murmur Gastrointestinal (Abdomen): normal bowel sounds, soft, nontender, no hepatosplenomegaly Musculoskeletal: Head/Neck/Chest: normocephalic and head atraumatic Extremities: extremities normal to inspection and + abnormal strength (generalized weakness); no cyanosis Skin: no rashes, warm and dry Neurologic: patellar DTR's 2+ bilat, sensation intact and PERRL, EOMI, accommodation nl, no face palsy, no dysarthria awake; not confused Psychiatric: A+Ox3, euthymic affect Lymphatic: no cervical or axillary lymphadenopathy Results & Data Vital Signs (Past 12 Hours) Vital Signs Temp Pulse Pulse Pulse Resp BP BP 10/14/19 07:46 36.7 C 56 L 18 110/63 10/14/19 00:00 59 L 10/13/19 22:01 36.9 C 64 18 114/68 Pulse Ox 10/14/19 07:46 95 10/14/19 00:00 10/13/19 22:01 98 PG Care Time/CCT Total # of Minutes Spent Total Time Spent with Patient: Total time spent is greater than 50% in coordination of care (as documented) at patient's floor/unit and/or counseling patient: (1) Urinary tract infection Hematuria presence: without hematuria Urinary tract infection type: site unspecified Qualified Code(s): N39.0 - Urinary tract infection, site not specified
--- NOTE | 2019-10-14 10:02 | Nephrology Progress Note ---
Date of Service October 14, 2019 Assessment & Plan (1) ESRD (end stage renal disease) on dialysis: -- No acute indication for HD today. Will plan next HD tomorrow to maintain TTS schedule -- Recheck PRP in am -- Will need AVF created once fully recovered from hospitalization (2) Cystitis: -- Urine cx positive for ESBL E. Coli. Remains on IV Ertapenem (3) Anemia: -- Will provide DANNA w/ HD treatments (4) Weakness: -- Continue inpatient PT for strengthening -- Discharge planning working on [employer] (5) Diabetes mellitus with diabetic neuropathy: (6) AF (paroxysmal atrial fibrillation): (7) Hypothyroidism: Subjective No acute events overnight. Appetite good. Out of bed to chair this morning. Activity tolerance improving. Breathing comfortably. Overall Shauna feels well. Review of Systems Review of Systems: All systems reviewed & are unremarkable except as noted in HPI & below Physical Exam Constitutional: well developed and + frail appearing; no acute distress Eyes: no scleral abnormality and no corneal abnormality ENMT: Mouth: no oral mucosal abnormality and oral mucous membranes not dry Neck: normal visual inspection and trachea midline Respiratory: normal respiratory effort Auscultation: lungs clear to auscultation bilaterally Cardiovascular: Rate/Rhythm: regular rate Heart Sounds: normal S1 and normal S2 Extremities: no edema Musculoskeletal: Extremities: no cyanosis and no clubbing Skin: normal turgor; no lesions Neurologic: Motor/Sensory: no tremor and no asterixis Psychiatric: Orientation: alert and oriented x 3 Results & Data Vital Signs (Past 12 Hours) Vital Signs Temp Pulse Pulse Pulse Resp BP BP 10/14/19 07:46 36.7 C 56 L 18 110/63 10/14/19 00:00 59 L 10/13/19 22:01 36.9 C 64 18 114/68 Pulse Ox 10/14/19 07:46 95 10/14/19 00:00 10/13/19 22:01 98 PG Care Time/CCT Total # of Minutes Spent Total Time Spent with Patient: Total time spent is greater than 50% in coordination of care (as documented) at patient's floor/unit and/or counseling patient:
[2019-10-14] MEDS: WARFARIN SOD 4 MG TAB PO SCH (15:31)
[2019-10-14] MEDS: ERTAPENEM SODIUM 500 MG in SODIUM CHLORIDE 0.9% 50 ML IV SCH (15:31)
[2019-10-14] MEDS: GABAPENTIN 300 MG CAP PO SCH (20:29)
[2019-10-14] MEDS: ATORVASTATIN 10 MG TAB PO SCH (20:29)
[2019-10-15] MEDS: LEVOTHYROXINE SODIUM 112 MCG TABLET PO SCH (06:08)
[2019-10-15] MEDS ORDERED: SODIUM CHLORIDE 0.9% 1000ML 1,000 ML IV PRN (07:00)
[2019-10-15] MEDS: AMLODIPINE BESYLATE 5 MG TAB PO SCH (07:18)
[2019-10-15] MEDS: GABAPENTIN 100 MG CAP PO SCH (07:19)
[2019-10-15] MEDS: HydrALAZINE TAB 50 MG TAB PO SCH ×2 (07:19→21:26)
[2019-10-15] MEDS: NEPHROCAPS PO SCH (07:19)
[2019-10-15] MEDS: METOPROLOL TARTRATE 25 MG TAB PO SCH ×2 (07:19→21:27)
[2019-10-15] MEDS: FUROSEMIDE 20 MG TAB PO SCH ×2 (07:20→17:50)
[2019-10-15] MEDS: CALCIUM CARBONATE 500 MG CHEWABLE TAB PO SCH ×3 (07:20→17:50)
[2019-10-15 07:51] LABS: Albumin Level 2.8 gm/dl (3.4-5.0); BUN Creatinine Ratio 8.1 (10-20); Calcium 9.4 mg/dl (8.5-10.1); Creatinine Clr Calc Pharmacy 4.4 ml/min; Est GFR (African American) 3.5; Phosphorus 6.3 mg/dl (2.5-4.9); Potassium 4.3 mmol/L (3.5-5.1)
[2019-10-15] MEDS: INSULIN GLARGINE SOLOSTAR 100 UNITS/ML 3 ML PEN SQ SCH (08:11)
[2019-10-15] MEDS: INSULIN ASPART 100 UNITS/ML 3 ML PEN SC SCH ×4 (08:12→20:20)
--- NOTE | 2019-10-15 09:34 | Nephrology Progress Note ---
Date of Service October 15, 2019 Assessment & Plan (1) ESRD (end stage renal disease) on dialysis: -- HD orders entered into EMR and reviewed with dialysis nurse. -- 2K. 1 L UF. -- TDC care per protocol. (2) Cystitis: -- Urine cx positive for ESBL E. Coli. Remains on IV Ertapenem (3) Anemia: -- DANNA provided w/ HD treatments (4) Weakness: -- Continue inpatient PT for strengthening -- Discharge planning working on [employer] or [facility] (5) Diabetes mellitus with diabetic neuropathy: (6) AF (paroxysmal atrial fibrillation): (7) Hypothyroidism: Subjective No acute events overnight. Shauna feels reasonably well this AM. Out of bed with PT. Review of Systems Review of Systems: All systems reviewed & are unremarkable except as noted in HPI & below Physical Exam Constitutional: well developed and + frail appearing; no acute distress Eyes: no scleral abnormality and no corneal abnormality ENMT: Mouth: no oral mucosal abnormality and oral mucous membranes not dry Neck: normal visual inspection and trachea midline Respiratory: normal respiratory effort Auscultation: lungs clear to ausc ultation bilaterally Cardiovascular: Rate/Rhythm: regular rate Heart Sounds: normal S1 and normal S2 Extremities: no edema Musculoskeletal: Extremities: no cyanosis and no clubbing Skin: normal turgor; no lesions Neurologic: Motor/Sensory: no tremor and no asterixis Psychiatric: Orientation: alert and oriented x 3 Results & Data Vital Signs (Past 12 Hours) Vital Signs Temp Pulse Pulse Pulse Resp BP Pulse Ox 10/15/19 07:39 36.4 C L 56 L 18 119/55 L 94 10/15/19 00:51 54 L 10/14/19 23:00 36.4 C L 55 L 18 127/66 95 Laboratory Results Laboratory Results - last 24 hr 10/14/19 10/14/19 10/14/19 11:32 16:22 19:53 Sodium Potassium Chloride Carbon Dioxide Anion Gap BUN Creatinine Est Cr Clr Drug Dosing Est GFR ( Amer) Est GFR (Non-Af Amer) BUN/Creatinine Ratio Glucose POC Glucose 259 H 224 H 197 H Calcium Phosphorus Albumin 10/15/19 10/15/19 06:39 07:31 Sodium 136 Potassium 4.3 Chloride 102 Carbon Dioxide 22 Anion Gap 12.0 H BUN 83 H Creatinine 10.30 H* D Est Cr Clr Drug Dosing 4.4 Est GFR ( Amer) 3.5 Est GFR (Non-Af Amer) 3.0 BUN/Creatinine Ratio 8.1 L Glucose 111 H POC Glucose 122 H Calcium 9.4 Phosphorus 6.3 H Albumin 2.8 L PG Care Time/CCT Total # of Minutes Spent Total Time Spent with Patient: Total time spent is greater than 50% in coordination of care (as documented) at patient's floor/unit and/or counseling patient:
[2019-10-15] MEDS: ERTAPENEM SODIUM 500 MG in SODIUM CHLORIDE 0.9% 50 ML IV SCH (17:01)
[2019-10-15] MEDS: WARFARIN SOD 4 MG TAB PO SCH (17:08)
--- NOTE | 2019-10-15 18:30 | Hospitalist Progress Note ---
Date of Service October 15, 2019 Assessment & Plan (1) Anemia: Related to chronic disease and end-stage renal insufficiency. Continue monitoring H&H. H&H stable for now. (2) Weakness: multifactorial, due to ongoing HD, deconditioning, new UTI Continue PT/OT Hopefully patient will get the bed in [facility] where she can also have hemodialysis TTS. Waiting on bed (3) Urinary tract infection: Urine culture growing ESBL E coli Continue Ertapenem 10/09 US guided IV placed needs 7-10 days total therapy, can finish at [facility] Ertapenem 1gm IV daily (4) ESRD (end stage renal disease) on dialysis: HD done 10/08 and 10/10, maintain Sat schedule 2K. 1 L UF. TDC care per protocol. electrolytes stable Patient will have hemodialysis on Monday to maintain TTS schedule. Recheck PRP in a.m. Patient will need AVF placed once when she is fully recovered from hospitalization. Dr. Palma nephrology following (5) Hypertension: BP stable today on home regimen (6) Hyperlipidemia: Continue atorvastatin 10 mg p.o. nightly (7) Paroxysmal atrial fibrillation: HR in the 60's - 70's, in sinus rhythm INR is 2.0, continue Coumadin (8) Diabetes mellitus with diabetic neuropathy: monitor for hypoglycemia, no episodes (9) Gait disturbance: Continue physical and Occupational Therapy (10) Hypothyroidism: Continue home dose of levothyroxine 112 MCG's p.o. every morning Subjective Patient seen and examined at bedside. No acute event overnight. She demonstrate generalized weakness. She tolerated hemodialysis today. Patient does not have any specific complaint today. She is getting out of bed with physical therapy. Patient denies fever, chills, chest pain, shortness of breath, abdominal pain, frequency, urgency. Review of Systems Review of Systems: All systems reviewed & are unremarkable except as noted in HPI & below Physical Exam Constitutional: WD/WN, vitals as above + overweight Eyes: PERRL, conjunctivae normal, anicteric sclerae ENMT: external ear and nose normal, oropharynx normal Neck: trachea midline, no thyromegaly (R IJ THC with clean dry dressing in place) Respiratory: normal respiratory effort, lungs clear to auscultation Cardiovascular: RRR, no murmur, no edema Rate/Rhythm: regular rate, regular rhythm and + irregularly irregular Heart Sounds: no murmur Gastrointestinal (Abdomen): normal bowel sounds, soft, nontender, no hepatosplenomegaly Musculoskeletal: Head/Neck/Chest: normocephalic and head atraumatic Extremities: extremities normal to inspection and + abnormal strength (generalized weakness); no cyanosis Skin: no rashes, warm and dry Neurologic: patellar DTR's 2+ bilat, sensation intact and PERRL, EOMI, accommodation nl, no face palsy, no dysarthria awake; not confused Psychiatric: A+Ox3, euthymic affect Lymphatic: no cervical or axillary lymphadenopathy Results & Data Vital Signs (Past 12 Hours) Vital Signs Temp Pulse Pulse Pulse Resp BP BP 10/15/19 17:31 58 L 10/15/19 16:18 36.8 C 57 L 57 L 124/53 L 124/53 L 10/15/19 16:00 61 100/50 L 10/15/19 15:40 61 92/49 L 10/15/19 15:20 61 92/43 L 10/15/19 15:00 59 L 110/51 L 10/15/19 14:40 58 L 96/50 L 10/15/19 14:20 58 L 90/49 L 10/15/19 14:00 60 94/48 L 10/15/19 13:40 53 L 100/49 L 10/15/19 13:20 54 L 98/45 L 10/15/19 13:00 54 L 98/46 L 10/15/19 12:40 50 L 105/48 L 10/15/19 12:20 50 L 109/50 L 10/15/19 12:08 36.5 C 52 L 52 L 112/50 L 10/15/19 11:13 36.4 C L 54 L 18 111/52 L 10/15/19 07:39 36.4 C L 56 L 18 119/55 L Pulse Ox 10/15/19 17:31 10/15/19 16:18 10/15/19 16:00 10/15/19 15:40 10/15/19 15:20 10/15/19 15:00 10/15/19 14:40 10/15/19 14:20 10/15/19 14:00 10/15/19 13:40 10/15/19 13:20 10/15/19 13:00 10/15/19 12:40 10/15/19 12:20 10/15/19 12:08 10/15/19 11:13 96 10/15/19 07:39 94 PG Care Time/CCT Total # of Minutes Spent Total Time Spent with Patient: Total time spent is greater than 50% in coordination of care (as documented) at patient's floor/unit and/or counseling patient: (1) Urinary tract infection Hematuria presence: without hematuria Urinary tract infection type: site unspecified Qualified Code(s): N39.0 - Urinary tract infection, site not specified
[2019-10-15] MEDS: GABAPENTIN 300 MG CAP PO SCH (21:27)
[2019-10-15] MEDS: ATORVASTATIN 10 MG TAB PO SCH (21:28)
[2019-10-16] MEDS: LEVOTHYROXINE SODIUM 112 MCG TABLET PO SCH (06:25)
[2019-10-16] MEDS: AMLODIPINE BESYLATE 5 MG TAB PO SCH (07:15)
[2019-10-16] MEDS: CALCITRIOL 0.25 MCG CAPSULE PO SCH (07:15)
[2019-10-16] MEDS: NEPHROCAPS PO SCH (07:15)
[2019-10-16] MEDS: GABAPENTIN 100 MG CAP PO SCH (07:15)
[2019-10-16] MEDS: HydrALAZINE TAB 50 MG TAB PO SCH ×2 (07:16→21:08)
[2019-10-16] MEDS: CALCIUM CARBONATE 500 MG CHEWABLE TAB PO SCH ×3 (07:16→16:10)
[2019-10-16] MEDS: FUROSEMIDE 20 MG TAB PO SCH ×2 (07:16→16:10)
[2019-10-16] MEDS: METOPROLOL TARTRATE 25 MG TAB PO SCH ×2 (07:16→21:07)
[2019-10-16] MEDS: INSULIN ASPART 100 UNITS/ML 3 ML PEN SC SCH ×4 (08:13→21:23)
[2019-10-16] MEDS: INSULIN GLARGINE SOLOSTAR 100 UNITS/ML 3 ML PEN SQ SCH (08:14)
--- NOTE | 2019-10-16 10:26 | Nephrology Progress Note ---
Date of Service October 16, 2019 Assessment & Plan (1) ESRD (end stage renal disease) on dialysis: -- HD TTS schedule -- BP and volume status are acceptable -- Repeat H/H and BMP with AM labs -- TDC care per protocol (2) Cystitis: -- Urine cx positive for ESBL E. Coli. Remains on IV Ertapenem (3) Anemia: -- DANNA provided w/ HD treatments (4) Weakness: -- Continue inpatient PT for strengthening -- Discharge pending (5) Diabetes mellitus with diabetic neuropathy: (6) AF (paroxysmal atrial fibrillation): (7) Hypothyroidism: Subjective No acute events overnight. Tolerated HD yesterday without complications. Shauna feels well this morning. OOB with PT. Review of Systems Review of Systems: All systems reviewed & are unremarkable except as noted in HPI & below Physical Exam Constitutional: well developed and + frail appearing; no acute distress Eyes: no scleral abnormality and no corneal abnormality ENMT: Mouth: no oral mucosal abnormality and oral mucous membranes not dry Neck: normal visual inspection and trachea midline Respiratory: normal respiratory effort Auscultation: lungs clear to au scultation bilaterally Cardiovascular: Rate/Rhythm: regular rate Heart Sounds: normal S1 and normal S2 Extremities: no edema Musculoskeletal: Extremities: no cyanosis and no clubbing Skin: normal turgor; no lesions Neurologic: Motor/Sensory: no tremor and no asterixis Psychiatric: Orientation: alert and oriented x 3 Results & Data Vital Signs (Past 12 Hours) Vital Signs Temp Pulse Pulse Resp BP Pulse Ox 10/16/19 07:06 36.6 C 52 L 16 97/86 L 96 10/16/19 04:41 36.8 C 53 L 18 116/59 L 95 10/15/19 23:53 52 L 10/15/19 23:21 36.8 C 55 L 18 102/53 L 96 Laboratory Results Laboratory Results - last 24 hr 10/15/19 10/15/19 10/15/19 11:19 16:27 20:09 PT INR POC Glucose 189 H 110 H 120 H 10/16/19 10/16/19 07:32 09:40 PT Pending INR Pending POC Glucose 109 H PG Care Time/CCT Total # of Minutes Spent Total Time Spent with Patient: Total time spent is greater than 50% in coordination of care (as documented) at patient's floor/unit and/or counseling patient:
[2019-10-16 10:32] LABS: Prothrombin Time 36.6 Seconds (9.0-12.0)
[2019-10-16 10:41] LABS: INR 3.9 (0.9-1.1)
[2019-10-16 13:15] LABS: Basophils # (auto) 0.04 K/uL (0-0.2); Basophils % (auto) 0.3 %; Eosinophils # (auto) 0.54 K/uL (0-0.5); Eosinophils % (auto) 4.1 %; Hematocrit (blood only) 33.2 % (37-47); Immature Granulocytes # (auto) 0.09 K/uL (0.00-0.02); Immature Granulocytes % (auto) 0.7 %; Lymphocytes # (auto) 2.46 K/uL (1.2-3.4); Lymphocytes % (auto) 18.6 %; Mean Corpuscular Hemoglobin 32.4 pg (25-34); Mean Corpuscular Volume 97.6 fL (80-100); Mean Platelet Volume 10.1 fL (7.4-10.4); Monocytes # (auto) 1.27 K/uL (0.11-0.59); Monocytes % (auto) 9.6 %; Neutrophils # (auto) 8.84 K/uL (1.4-6.5); Neutrophils % (auto) 66.7 %; Platelet Count 234 K/uL (130-400); RDW Coefficient of Variation 16.5 % (11.5-14.5); RDW Standard Deviation 55.3 fL (36.4-46.3); White Blood Count 13.24 K/uL (4.8-10.8)
[2019-10-16 13:20] LABS: Mean Corpuscular Hgb Conc 33.1 g/dL (32-36)
[2019-10-16 13:39] LABS: Albumin Globulin Ratio 0.7 (0.9-2); Albumin Level 3.2 gm/dl (3.4-5.0); BUN Creatinine Ratio 5.9 (10-20); Bilirubin,Total 0.6 mg/dl (0.2-1); Creatinine Clr Calc Pharmacy 6.8 ml/min; Est GFR (Non-African American) 5.2; Globulin 4.4 gm/dl (2.5-4.0); Total Protein 7.6 gm/dl (6.4-8.2)
--- NOTE | 2019-10-16 15:37 | Hospitalist Progress Note ---
Date of Service October 16, 2019 Assessment & Plan (1) Anemia: Related to chronic disease and end-stage renal insufficiency. Continue monitoring H&H. H&H stable for now. (2) Weakness: multifactorial, due to ongoing HD, deconditioning, new UTI Continue PT/OT Hopefully patient will get the bed in [facility] where she can also have hemodialysis TTS. Waiting on bed (3) Urinary tract infection: Urine culture growing ESBL E coli Continue Ertapenem 10/09 US guided IV placed needs 7-10 days total therapy, can finish at SNF Ertapenem 1gm IV daily (4) ESRD (end stage renal disease) on dialysis: HD done 10/08 and 10/10,Trying to adjust HD schedule to MWF so pt have better option to get into SNF. 2K. 1 L UF. TDC care per protocol. electrolytes stable Patient will need AVF placed once when she is fully recovered from hospitalization. Dr. Palma nephrology following (5) Hypertension: BP stable today on home regimen (6) Hyperlipidemia: Continue atorvastatin 10 mg p.o. nightly (7) Paroxysmal atrial fibrillation: HR in the 60's - 70's, in sinus rhythm INR is 2.0, continue Coumadin (8) Diabetes mellitus with diabetic neuropathy: monitor for hypoglycemia, no episodes (9) Gait disturbance: Continue physical and Occupational Therapy (10) Hypothyroidism: Continue home dose of levothyroxine 112 MCG's p.o. every morning Subjective Patient seen and examined at the bedside. No acute events overnight. Tolerated HD yesterday without complications. Patient is participated in physical therapy. Waiting on bed to [facility] or somewhere else when she can have PT/OT and HD. Review of Systems Review of Systems: All systems reviewed & are unremarkable except as noted in HPI & below Physical Exam Constitutional: WD/WN, vitals as above + overweight Eyes: PERRL, conjunctivae normal, anicteric sclerae ENMT: external ear and nose normal, oropharynx normal Neck: trachea midline, no thyromegaly (R IJ THC with clean dry dressing in place) Respiratory: normal respiratory effort, lungs clear to auscultation Cardiovascular: RRR, no murmur, no edema Rate/Rhythm: regular rate, regular rhythm and + irregularly irregular Heart Sounds: no murmur Gastrointestinal (Abdomen): normal bowel sounds, soft, nontender, no hepatosplenomegaly Musculoskeletal: Head/Neck/Chest: normocephalic and head atraumatic Extremities: extremities normal to inspection and + abnormal strength (generalized weakness); no cyanosis Skin: no rashes, warm and dry Neurologic: patellar DTR's 2+ bilat, sensation intact and PERRL, EOMI, accommodation nl, no face palsy, no dysarthria awake; not confused Psychiatric: A+Ox3, euthymic affect Lymphatic: no cervical or axillary lymphadenopathy Results & Data Vital Signs (Past 12 Hours) Vital Signs Temp Pulse Pulse Resp BP BP Pulse Ox 10/16/19 14:56 36.5 C 60 16 111/67 97 10/16/19 11:18 36.4 C L 55 L 18 109/53 L 98 10/16/19 07:06 36.6 C 52 L 16 97/86 L 96 10/16/19 04:41 36.8 C 53 L 18 116/59 L 95 PG Care Time/CCT Total # of Minutes Spent Total Time Spent with Patient: Total time spent is greater than 50% in coordinat ion of care (as documented) at patient's floor/unit and/or counseling patient: (1) Urinary tract infection Hematuria presence: without hematuria Urinary tract infection type: site unspecified Qualified Code(s): N39.0 - Urinary tract infection, site not specified
[2019-10-16] MEDS: ERTAPENEM SODIUM 500 MG in SODIUM CHLORIDE 0.9% 50 ML IV SCH (17:35)
[2019-10-16] MEDS: ATORVASTATIN 10 MG TAB PO SCH (21:06)
[2019-10-16] MEDS: GABAPENTIN 300 MG CAP PO SCH (21:07)
[2019-10-17] MEDS: LEVOTHYROXINE SODIUM 112 MCG TABLET PO SCH (06:07)
[2019-10-17] MEDS ORDERED: SODIUM CHLORIDE 0.9% 1000ML 1,000 ML IV PRN (07:00)
[2019-10-17 07:22] LABS: Basophils # (auto) 0.05 K/uL (0-0.2); Basophils % (auto) 0.5 %; Eosinophils # (auto) 0.45 K/uL (0-0.5); Eosinophils % (auto) 4.5 %; Hematocrit (blood only) 30.8 % (37-47); Hemoglobin 10.2 g/dL (12.0-16.0); Immature Granulocytes # (auto) 0.07 K/uL (0.00-0.02); Immature Granulocytes % (auto) 0.7 %; Lymphocytes # (auto) 2.37 K/uL (1.2-3.4); Lymphocytes % (auto) 23.9 %; Mean Corpuscular Hemoglobin 32.3 pg (25-34); Mean Corpuscular Hgb Conc 33.1 g/dL (32-36); Mean Corpuscular Volume 97.5 fL (80-100); Mean Platelet Volume 9.5 fL (7.4-10.4); Monocytes # (auto) 1.11 K/uL (0.11-0.59); Monocytes % (auto) 11.2 %; Neutrophils # (auto) 5.86 K/uL (1.4-6.5); Neutrophils % (auto) 59.2 %; Platelet Count 204 K/uL (130-400); RDW Coefficient of Variation 15.9 % (11.5-14.5); Red Blood Count 3.16 M/uL (4.2-5.4); White Blood Count 9.91 K/uL (4.8-10.8)
[2019-10-17 08:09] LABS: Albumin Globulin Ratio 0.7 (0.9-2); Albumin Level 2.7 gm/dl (3.4-5.0); Bilirubin,Total 0.6 mg/dl (0.2-1); Calcium 8.9 mg/dl (8.5-10.1); Creatinine Clr Calc Pharmacy 5.4 ml/min; Est GFR (African American) 4.5; Est GFR (Non-African American) 3.9; Potassium 4.1 mmol/L (3.5-5.1); Total Protein 6.7 gm/dl (6.4-8.2)
[2019-10-17] MEDS: INSULIN GLARGINE SOLOSTAR 100 UNITS/ML 3 ML PEN SQ SCH (08:43)
[2019-10-17] MEDS: CALCIUM CARBONATE 500 MG CHEWABLE TAB PO SCH ×3 (08:43→17:18)
[2019-10-17] MEDS: GABAPENTIN 100 MG CAP PO SCH (08:43)
[2019-10-17] MEDS: NEPHROCAPS PO SCH (08:43)
[2019-10-17] MEDS: FUROSEMIDE 20 MG TAB PO SCH ×2 (08:44→16:01)
[2019-10-17] MEDS: METOPROLOL TARTRATE 25 MG TAB PO SCH ×2 (08:44→21:48)
[2019-10-17] MEDS: INSULIN ASPART 100 UNITS/ML 3 ML PEN SC SCH ×4 (08:46→21:18)
[2019-10-17 11:57] LABS: INR 3.9 (0.9-1.1)
--- NOTE | 2019-10-17 13:42 | Nephrology Progress Note ---
Date of Service October 17, 2019 Assessment & Plan (1) ESRD (end stage renal disease) on dialysis: -- HD TTS schedule: orders entered into EMR and discussed with dialysis nurse -- BP and volume status are acceptable -- Minimal UF required today (2) Cystitis: -- Urine cx positive for ESBL E. Coli. Remains on IV Ertapenem (3) Anemia: -- DANNA held today with Hgb >10 (4) Weakness: -- Anticipate DC to rehab. [facility] expressed likely ability to switch to MWF schedule to assist with transportation as needed (5) Diabetes mellitus with diabetic neuropathy: (6) AF (paroxysmal atrial fibrillation): (7) Hypothyroidism: Subjective No acute events overnight. Shauna was seen and evaluated this AM while resting in bed. I discussed the plan of care with her son. Review of Systems Review of Systems: All systems reviewed & are unremarkable except as noted in HPI & below Physical Exam Constitutional: well developed and + frail appearing; no acute distress Eyes: no scleral abnormality and no corneal abnormality ENMT: Mouth: + dry oral mucous membranes; no oral mucosal abnormality Neck: normal visual inspection and trachea midline Respiratory: normal respiratory effort Auscultation: lungs clear to auscultation bilaterally Cardiovascular: Rate/Rhythm: regular rate Heart Sounds: normal S1 and normal S2 Extremities: no edema Musculoskeletal: Extremities: no cyanosis and no clubbing Skin: normal turgor; no lesions Neurologic: Motor/Sensory: no tremor and no asterixis Psychiatric: Orientation: alert and oriented x 3 Results & Data Vital Signs (Past 12 Hours) Vital Signs Temp Pulse Pulse Resp BP BP Pulse Ox 10/17/19 13:20 59 L 112/58 L 10/17/19 13:00 57 L 115/56 L 10/17/19 12:40 56 L 116/55 L 10/17/19 12:20 55 L 111/54 L 10/17/19 12:00 56 L 110/59 L 10/17/19 11:40 59 L 119/56 L 10/17/19 11:29 36.6 C 55 L 10/17/19 07:17 52 L 10/17/19 07:15 36.4 C L 52 L 16 102/63 95 10/17/19 05:15 36.4 C L 53 L 18 126/70 96 Laboratory Results Laboratory Results - last 24 hr 1210/16/19 10/17/19 16:28 20:12 06:51 WBC 9.91 RBC 3.16 L Hgb 10.2 L Hct 30.8 L MCV 97.5 MCH 32.3 MCHC 33.1 RDW Std Deviation 55.0 H RDW Coeff of Jon 15.9 H Plt Count 204 MPV 9.5 Immature Gran % (Auto) 0.7 Neut % (Auto) 59.2 Lymph % (Auto) 23.9 [place] % (Auto) 11.2 Eos % (Auto) 4.5 Baso % (Auto) 0.5 Immature Gran # (Auto) 0.07 H Neut # (Auto) 5.86 Lymph # (Auto) 2.37 [place] # (Auto) 1.11 H Eos # (Auto) 0.45 Baso # (Auto) 0.05 PT INR Sodium Potassium Chloride Carbon Dioxide Anion Gap BUN Creatinine Est Cr Clr Drug Dosing Est GFR ( Amer) Est GFR (Non-Af Amer) BUN/Creatinine Ratio Glucose POC Glucose 109 H 110 H Calcium Total Bilirubin AST ALT Alkaline Phosphatase Total Protein Albumin Globulin Albumin/Globulin Ratio 10/17/19 10/17/19 10/17/19 06:51 07:30 11:12 WBC RBC Hgb Hct MCV MCH MCHC RDW Std Deviation RDW Coeff of Jon Plt Count MPV Immature Gran % (Auto) Neut % (Auto) Lymph % (Auto) [place] % (Auto) Eos % (Auto) Baso % (Auto) Immature Gran # (Auto) Neut # (Auto) Lymph # (Auto) [place] # (Auto) Eos # (Auto) Baso # (Auto) PT 36.0 H INR 3.9 H Sodium 132 L Potassium 4.1 Chloride 100 Carbon Dioxide 22 Anion Gap 10.0 BUN 58 H Creatinine 8.36 H* D Est Cr Clr Drug Dosing 5.4 Est GFR ( Amer) 4.5 Est GFR (Non-Af Amer) 3.9 BUN/Creatinine Ratio 7.0 L Glucose 110 H POC Glucose 115 H Calcium 8.9 Total Bilirubin 0.6 AST 22 ALT 18 Alkaline Phosphatase 97 Total Protein 6.7 Albumin 2.7 L Globulin 4.0 Albumin/Globulin Ratio 0.7 L 10/17/19 11:34 WBC RBC Hgb Hct MCV MCH MCHC RDW Std Deviation RDW Coeff of Jon Plt Count MPV Immature Gran % (Auto) Neut % (Auto) Lymph % (Auto) [place] % (Auto) Eos % (Auto) Baso % (Auto) Immature Gran # (Auto) Neut # (Auto) Lymph # (Auto) [place] # (Auto) Eos # (Auto) Baso # (Auto) PT INR Sodium Potassium Chloride Carbon Dioxide Anion Gap BUN Creatinine Est Cr Clr Drug Dosing Est GFR ( Amer) Est GFR (Non-Af Amer) BUN/Creatinine Ratio Glucose POC Glucose 167 H Calcium Total Bilirubin AST ALT Alkaline Phosphatase Total Protein Albumin Globulin Albumin/Globulin Ratio PG Care Time/CCT Total # of Minutes Spent Total Time Spent with Patient: Total time spent is greater than 50% in coordination of care (as documented) at patient's floor/unit and/or counseling patient:
--- NOTE | 2019-10-17 15:47 | Hospitalist Progress Note ---
Date of Service October 17, 2019 Assessment & Plan (1) Weakness: Multifactorial due to ongoing HD, deconditioning, & new UTI. - Continue PT/OT - Hopefully patient will get the bed in [facility] where she can also have hemodialysis TTS. (2) Anemia: Related to chronic disease and end-stage renal insufficiency. - Occasionally monitor hgb - Stable on 10/17. (3) ESRD (end stage renal disease) on dialysis: Now on HD T-Th-Sat. We are hoping to get [facility] to change her to HD MWF, so she will have a better option to get into SNF. - Patient will need AVF placed once when she is fully recovered from hos pitalization. - Dr. Palma nephrology following. (4) Urinary tract infection: Urine culture from 10/07 grew ESBL E coli. - She was started on ertapenem 10/09. Finished on 10/17 as an 8-day course is entirely adequate for a UTI. (5) Hypertension: BP stable at 130/60 today on home regimen. - Continue amlodipine, Lasix, hydralazine, metoprolol (6) Hyperlipidemia: Continue atorvastatin 10 mg p.o. nightly (7) Paroxysmal atrial fibrillation: HR in the 60's - 70's, in sinus rhythm. - INR is now 3.9. - Hold warfarin; recheck tomorrow. No signs of bleeding and hgb is stable in the 10-11 range, so will not reverse. (8) Diabetes mellitus with diabetic neuropathy: A1c was 9.0% in 08/2019. - Lantus 15 units daily - Sliding scale insulin - On 10/17, blood sugars are stable in the ~100 range. (9) Hypothyroidism: TSH was 4.9 this month. - Continue home levothyroxine 112 mcg (10) DVT prophylaxis: On warfarin for afib Subjective She is doing well overall. She has no real focal complaints today. No pain, no shortness of breath. Reports no fevers/chills, chest pain, shortness of breath, abdominal pain, nausea, or vomiting. Physical Exam Constitutional: WD/WN, vitals as above Eyes: EOM intact bilaterally; no conjunctival abnormality ENMT: external ear and nose normal, oropharynx normal Neck: trachea midline, no thyromegaly normal visual inspection Respiratory: normal respiratory effort, lungs clear to auscultation no respiratory distress Cardiovascular: RRR, no murmur, no edema Chest (Breasts): Chest: + vascular access device or port (Right chest wall without any erythema or warmth) Gastrointestinal (Abdomen): Inspection/Auscultation: abdomen normal to inspection; abdomen not distended Musculoskeletal: no cyanosis or clubbing, extremities motor strength 5/5 Skin: no rashes, warm and dry Neurologic: moves all extremities and awake Psychiatric: Orientation: alert, oriented to person and cooperative Results & Data Vital Signs (Past 12 Hours) Vital Signs Temp Pulse Pulse Pulse Resp BP BP 10/17/19 15:26 36.7 C 58 L 18 129/57 L 10/17/19 15:12 36.6 C 58 L 129/57 L 10/17/19 15:00 58 L 115/55 L 10/17/19 14:40 60 114/59 L 10/17/19 14:20 59 L 115/58 L 10/17/19 14:00 59 L 121/59 L 10/17/19 13:40 58 L 119/59 L 10/17/19 13:20 59 L 112/58 L 10/17/19 13:00 57 L 115/56 L 10/17/19 12:40 56 L 116/55 L 10/17/19 12:20 55 L 111/54 L 10/17/19 12:00 56 L 110/59 L 10/17/19 11:40 59 L 119/56 L 10/17/19 11:29 36.6 C 55 L 10/17/19 07:17 52 L 10/17/19 07:15 36.4 C L 52 L 16 102/63 10/17/19 05:15 36.4 C L 53 L 18 126/70 Pulse Ox 10/17/19 15:26 90 10/17/19 15:12 10/17/19 15:00 10/17/19 14:40 10/17/19 14:20 10/17/19 14:00 10/17/19 13:40 10/17/19 13:20 10/17/19 13:00 10/17/19 12:40 10/17/19 12:20 10/17/19 12:00 10/17/19 11:40 10/17/19 11:29 10/17/19 07:17 10/17/19 07:15 95 10/17/19 05:15 96 PG Care Time/CCT Total # of Minutes Spent Total Time Spent with Patient: Total time spent is greater than 50% in coordination of care (as documented) at patient's floor/unit and/or counseling patient: (1) Urinary tract infection Hematuria presence: without hematuria Urinary tract infection type: site unspecified Qualified Code(s): N39.0 - Urinary tract infection, site not specified
[2019-10-17] MEDS: AMLODIPINE BESYLATE 5 MG TAB PO SCH (15:54)
[2019-10-17] MEDS: HydrALAZINE TAB 50 MG TAB PO SCH ×2 (15:55→21:48)
[2019-10-17] MEDS: ERTAPENEM SODIUM 500 MG in SODIUM CHLORIDE 0.9% 50 ML IV SCH (15:55)
[2019-10-17] MEDS ORDERED: SENNA 8.6 MG TAB PO PRN (21:08)
[2019-10-17] MEDS ORDERED: DOCUSATE SODIUM 100 MG CAP PO PRN (21:08)
[2019-10-17] MEDS ORDERED: POLYETHYLENE (MIRALAX) 17 GM PACK PO PRN (21:08)
[2019-10-17] MEDS ORDERED: MAGNESIUM HYDROXIDE SUSP 30 ML UDC PO PRN (21:08)
[2019-10-17] MEDS: GABAPENTIN 300 MG CAP PO SCH (21:48)
[2019-10-17] MEDS: ATORVASTATIN 10 MG TAB PO SCH (21:48)
[2019-10-18] MEDS: LEVOTHYROXINE SODIUM 112 MCG TABLET PO SCH (05:41)
[2019-10-18] MEDS: CALCITRIOL 0.25 MCG CAPSULE PO SCH (08:23)
[2019-10-18] MEDS: AMLODIPINE BESYLATE 5 MG TAB PO SCH (08:23)
[2019-10-18] MEDS: GABAPENTIN 100 MG CAP PO SCH (08:23)
[2019-10-18] MEDS: CALCIUM CARBONATE 500 MG CHEWABLE TAB PO SCH ×3 (08:23→18:08)
[2019-10-18] MEDS: NEPHROCAPS PO SCH (08:24)
[2019-10-18] MEDS: FUROSEMIDE 20 MG TAB PO SCH ×2 (08:24→18:08)
[2019-10-18] MEDS: HydrALAZINE TAB 50 MG TAB PO SCH ×2 (08:26→21:28)
[2019-10-18] MEDS: INSULIN ASPART 100 UNITS/ML 3 ML PEN SC SCH ×4 (08:27→20:43)
[2019-10-18] MEDS: INSULIN GLARGINE SOLOSTAR 100 UNITS/ML 3 ML PEN SQ SCH (08:28)
[2019-10-18] MEDS: METOPROLOL TARTRATE 25 MG TAB PO SCH ×2 (08:31→21:30)
[2019-10-18 08:46] LABS: BUN Creatinine Ratio 6.5 (10-20); Calcium 9.1 mg/dl (8.5-10.1); Creatinine Clr Calc Pharmacy 7.6 ml/min; Est GFR (African American) 6.9; Potassium 4.2 mmol/L (3.5-5.1)
--- NOTE | 2019-10-18 10:22 | Nephrology Progress Note ---
Date of Service October 18, 2019 Assessment & Plan (1) ESRD (end stage renal disease) on dialysis: -- HD TTS schedule -- BP and volume status are acceptable -- Electrolytes within normal limits -- Plan next HD treatment for tomorrow (2) Cystitis: -- Urine cx positive for ESBL E. Coli. Remains on IV Ertapenem (3) Anemia: -- DANNA held today with Hgb >10 (4) Weakness: (5) Diabetes mellitus with diabetic neuropathy: (6) AF (paroxysmal atrial fibrillation): (7) Hypothyroidism: Subjective No acute events overnight. Shauna was seen and evaluated this AM while resting. She tolerated HD reasonably well yesterday without complications. Review of Systems Review of Systems: All systems reviewed & are unremarkable except as noted in HPI & below Physical Exam Constitutional: well developed and + frail appearing; no acute distress Eyes: no scleral abnormality and no corneal abnormality ENMT: Mouth: + dry oral mucous membranes; no oral mucosal abnormality Neck: normal visual inspection and trachea midline Respiratory: normal respiratory effort Auscultation: lungs clear to auscultation bilaterally Cardiovascular: Rate/Rhythm: regular rate Heart Sounds: normal S1 and normal S2 Extremities: no edema Musculoskeletal: Extremities: no cyanosis and no clubbing Skin: normal turgor; no lesions Neurologic: Motor/Sensory: no tremor and no asterixis Psychiatric: Orientation: alert and oriented x 3 Results & Data Vital Signs (Past 12 Hours) Vital Signs Temp Pulse Pulse Pulse Resp BP Pulse Ox 10/18/19 07:24 36.6 C 55 L 16 106/56 L 95 10/18/19 04:31 36.6 C 53 L 18 108/67 94 10/18/19 01:35 67 10/17/19 23:07 36.6 C 69 19 115/65 94 Laboratory Results Laboratory Results - last 24 hr 10/17/19 10/17/19 10/17/19 11:12 11:34 15:24 PT 36.0 H INR 3.9 H Sodium Potassium Chloride Carbon Dioxide Anion Gap BUN Creatinine Est Cr Clr Drug Dosing Est GFR ( Amer) Est GFR (Non-Af Amer) BUN/Creatinine Ratio Glucose POC Glucose 167 H 95 Calcium 10/17/19 10/18/19 10/18/19 20:25 07:33 07:47 PT INR Sodium 135 L Potassium 4.2 Chloride 102 Carbon Dioxide 24 Anion Gap 8.0 BUN 38 H Creatinine 5.84 H* D Est Cr Clr Drug Dosing 7.6 Est GFR ( Amer) 6.9 Est GFR (Non-Af Amer) 6.0 BUN/Creatinine Ratio 6.5 L Glucose 106 H POC Glucose 103 H 111 H Calcium 9.1 PG Care Time/CCT Total # of Minutes Spent Total Time Spent with Patient: Total time spent is greater than 50% in coordination of care (as documented) at patient's floor/unit and/or counseling patient:
[2019-10-18 14:19] LABS: INR 2.1 (0.9-1.1); Prothrombin Time 20.6 Seconds (9.0-12.0)
[2019-10-18] MEDS ORDERED: WARFARIN SOD 4 MG TAB PO ONE (16:00)
[2019-10-18] MEDS: ATORVASTATIN 10 MG TAB PO SCH (21:29)
[2019-10-18] MEDS: GABAPENTIN 300 MG CAP PO SCH (21:30)
--- NOTE | 2019-10-18 22:27 | Hospitalist Progress Note ---
Date of Service October 18, 2019 Assessment & Plan (1) Weakness: Multifactorial due to ongoing HD, deconditioning, & new UTI. - Continue PT/OT - Hopefully patient will get the bed in [facility] where she can also have hemodialysis TTS. -Awaiting placement likely on Sunday 10/21 (2) Anemia: Related to chronic disease and end-stage renal insufficiency. - Occasionally monitor hgb - Stable on 10/18 (3) ESRD (end stage renal disease) on dialysis: Now on HD T--Sat. We are hoping to get [facility] to change her to HD MWF, so she will have a better option to get into SNF. - Patient will need AVF placed once when she is fully recovered from hospitalization. - Dr. Palma nephrology following. (4) Urinary tract infection: Urine culture from 10/07 grew ESBL E coli. - She was started on ertapenem 10/09. Finished on 10/17 as an 8-day course is entirely adequate for a UTI. (5) Hypertension: BP stable at 130/60 today on home regimen. - Continue amlodipine, Lasix, hydralazine, metoprolol (6) Hyperlipidemia: Continue atorvastatin 10 mg p.o. nightly (7) Paroxysmal atrial fibrillation: HR in the 60's - 70's, in sinus rhythm. - INR is now 3.9. - Hold warfarin; recheck tomorrow. No signs of bleeding and hgb is stable in the 10-11 range, so will not reverse. (8) Diabetes mellitus with diabetic neuropathy: A1c was 9.0% in 08/2019. - Lantus 15 units daily - Sliding scale insulin - On 10/18, blood sugars are stable in the ~100 range. (9) Hypothyroidism: TSH was 4.9 this month. - Continue home levothyroxine 112 mcg (10) DVT prophylaxis: On warfarin for afib Subjective Patient reports no new symptoms. Review of Systems Review of Systems: All systems reviewed & are unremarkable except as noted in HPI & below Physical Exam Physical Exam: Constitutional: WD/WN, vitals as above Eyes: EOM intact bilaterally; no conjunctival abnormality ENMT: external ear and nose normal, oropharynx normal Neck: trachea midline, no thyromegaly normal visual inspection Respiratory: normal respiratory effort, lungs clear to auscultation no respiratory distress Cardiovascular: RRR, no murmur, no edema Chest (Breasts): Chest: + vascular access device or port (Right chest wall without any erythema or warmth) Gastrointestinal (Abdomen): Inspection/Auscultation: abdomen normal to inspection; abdomen not distended Musculoskeletal: no cyanosis or clubbing, extremities motor strength 5/5 Skin: no rashes, warm and dry Neurologic: moves all extremities and awake Psychiatric: Orientation: alert, oriented to person and cooperative Results & Data Vital Signs (Past 12 Hours) Vital Signs Temp Pulse Pulse Pulse Resp BP Pulse Ox 10/18/19 19:56 63 10/18/19 19:48 36.5 C 65 20 126/74 95 10/18/19 15:16 36.5 C 62 16 138/69 93 10/18/19 11:44 36.8 C 61 16 101/65 94 PG Care Time/CCT Total # of Minutes Spent Total Time Spent with Patient: Total time spent is greater than 50% in coordination of care (as documented) at patient's floor/unit and/or counseling patient: (1) Urinary tract infection Hematuria presence: without hematuria Urinary tract infection type: site unspecified Qualified Code(s): N39.0 - Urinary tract infection, site not specified
[2019-10-19] MEDS: LEVOTHYROXINE SODIUM 112 MCG TABLET PO SCH (06:13)
[2019-10-19 07:21] LABS: INR 1.8 (0.9-1.1); Prothrombin Time 18.1 Seconds (9.0-12.0)
[2019-10-19] MEDS ORDERED: IRON SUCROSE 200 MG in SYRINGE 0 ML IV SCH (08:00)
[2019-10-19] MEDS ORDERED: SODIUM CHLORIDE 0.9% 1000ML 1,000 ML IV PRN (08:15)
[2019-10-19 08:49] LABS: Hematocrit (blood only) 29.8 % (37-47); Hemoglobin 9.9 g/dL (12.0-16.0)
[2019-10-19] MEDS: INSULIN ASPART 100 UNITS/ML 3 ML PEN SC SCH ×4 (08:50→21:21)
[2019-10-19 09:11] LABS: Calcium 9.1 mg/dl (8.5-10.1); Creatinine Clr Calc Pharmacy 5.8 ml/min; Est GFR (Non-African American) 4.3; Ferritin 420.2 ng/ml (8-388); Potassium 4.4 mmol/L (3.5-5.1)
--- NOTE | 2019-10-19 11:54 | Nephrology Progress Note ---
Date of Service October 19, 2019 Assessment & Plan (1) ESRD (end stage renal disease) on dialysis: -- HD today per TTS schedule, orders entered into EMR and discussed with HD nurse -- BP and volume status are acceptable -- Qb appropriate -- No complications with HD but unfortunately, Shauna's overall functional status seems to be declining (2) Cystitis: -- Urine cx positive for ESBL E. Coli. Remains on IV Ertapenem (3) Anemia: -- DANNA held today with Hgb >10 (4) Weakness: -- Anticipate DC to rehab possibly Monday (5) Diabetes mellitus with diabetic neuropathy: (6) AF (paroxysmal atrial fibrillation): (7) Hypothyroidism: Subjective Shauna was seen and evaluated during hemodialysis. Her was present for the treatment. She remains significantly lethargic and does not engage in conversation. Review of Systems Review of Systems: All systems reviewed & are unremarkable except as noted in HPI & below Physical Exam Constitutional: + frail appearing; no acute distress Eyes: no scleral abnormality and no corneal abnormality ENMT: Mouth: + dry oral mucous membranes; no oral mucosal abnormality Neck: normal visual inspection and trachea midline Respiratory: normal respiratory effort Auscultation: lungs clear to auscultation bilaterally Cardiovascular: Rate/Rhythm: regular rate Heart Sounds: normal S1 and normal S2 Extremities: no edema Musculoskeletal: Extremities: no cyanosis and no clubbing Skin: normal turgor; no lesions Neurologic: Motor/Sensory: no tremor and no asterixis Results & Data Vital Signs (Past 12 Hours) Vital Signs Temp Pulse Pulse Pulse Resp BP BP 10/19/19 11:40 60 125/51 L 10/19/19 11:20 58 L 104/47 L 10/19/19 11:00 60 121/54 L 10/19/19 10:40 61 104/43 L 10/19/19 10:20 56 L 115/48 L 10/19/19 10:00 57 L 120/52 L 10/19/19 09:42 36.6 C 60 60 123/49 L 10/19/19 07:11 36.4 C L 56 L 18 108/62 10/19/19 04:00 36.5 C 53 L 20 106/62 10/18/19 23:59 61 Pulse Ox 10/19/19 11:40 10/19/19 11:20 10/19/19 11:00 10/19/19 10:40 10/19/19 10:20 10/19/19 10:00 10/19/19 09:42 10/19/19 07:11 95 10/19/19 04:00 95 10/18/19 23:59 PG Care Time/CCT Total # of Minutes Spent Total Time Spent with Patient: Total time spent is greater than 50% in coordination of care (as documented) at patient's floor/unit and/or counseling patient:
[2019-10-19] MEDS: HydrALAZINE TAB 50 MG TAB PO SCH ×2 (14:05→21:37)
[2019-10-19] MEDS: AMLODIPINE BESYLATE 5 MG TAB PO SCH (14:05)
[2019-10-19] MEDS: FUROSEMIDE 20 MG TAB PO SCH ×2 (14:06→17:06)
[2019-10-19] MEDS: NEPHROCAPS PO SCH (14:06)
[2019-10-19] MEDS: GABAPENTIN 100 MG CAP PO SCH (14:06)
[2019-10-19] MEDS: CALCIUM CARBONATE 500 MG CHEWABLE TAB PO SCH ×3 (14:07→17:06)
[2019-10-19] MEDS: METOPROLOL TARTRATE 25 MG TAB PO SCH ×2 (14:07→21:20)
[2019-10-19] MEDS: INSULIN GLARGINE SOLOSTAR 100 UNITS/ML 3 ML PEN SQ SCH (15:02)
[2019-10-19] MEDS: GABAPENTIN 300 MG CAP PO SCH (21:20)
[2019-10-19] MEDS: ATORVASTATIN 10 MG TAB PO SCH (21:37)
--- NOTE | 2019-10-19 22:07 | Hospitalist Progress Note ---
Date of Service October 19, 2019 Assessment & Plan (1) Weakness: Multifactorial due to ongoing HD, deconditioning, & new UTI. - Continue PT/OT - Hopefully patient will get the bed in [facility] where she can also have hemodialysis TTS. -Awaiting placement likely on Sunday 10/21 (2) Anemia: Related to chronic disease and end-stage renal insufficiency. - Occasionally monitor hgb - Stable on 10/19 (3) ESRD (end stage renal disease) on dialysis: Now on HD T--Sat. We are hoping to get [facility] to change her to HD MWF, so she will have a better option to get into SNF. - Patient will need AVF placed once when she is fully recovered from hospitalization. - Dr. Palma nephrology following. (4) Urinary tract infection: Urine culture from 10/07 grew ESBL E coli. - She was started on ertapenem 10/09. Finished on 10/17 as an 8-day course is entirely adequate for a UTI. (5) Hypertension: BP stable at 130/60 today on home regimen. - Continue amlodipine, Lasix, hydralazine, metoprolol (6) Hyperlipidemia: Continue atorvastatin 10 mg p.o. nightly (7) Paroxysmal atrial fibrillation: HR in the 60's - 70's, in sinus rhythm. - INR is now 3.9. - Hold warfarin; recheck tomorrow. No signs of bleeding and hgb is stable in the 10-11 range, so will not reverse. (8) Diabetes mellitus with diabetic neuropathy: A1c was 9.0% in 08/2019. - Lantus 15 units daily - Sliding scale insulin - On 10/19, blood sugars are stable in the ~100 range. (9) Hypothyroidism: TSH was 4.9 this month. - Continue home levothyroxine 112 mcg (10) DVT prophylaxis: On warfarin for afib Subjective 89 yo female reports feeling well. Patient has no new complaints. Review of Systems Review of Systems: All systems reviewed & are unremarkable except as noted in HPI & below Physical Exam Physical Exam: Constitutional: WD/WN, vitals as above Eyes: EOM intact bilaterally; no conjunctival abnormality ENMT: external ear and nose normal, oropharynx normal Neck: trachea midline, no thyromegaly normal visual inspection Respiratory: normal respiratory effort, lungs clear to auscultation no respiratory distress Cardiovascular: RRR, no murmur, no edema Chest (Breasts): Chest: + vascular access device or port (Right chest wall without any erythema or warmth) Gastrointestinal (Abdomen): Inspection/Auscultation: abdomen normal to inspection; abdomen not distended Musculoskeletal: no cyanosis or clubbing, extremities motor strength 5/5 Skin: no rashes, warm and dry Neurologic: moves all extremities and awake Psychiatric: Orientation: alert, oriented to person and cooperative Results & Data Vital Signs (Past 12 Hours) Vital Signs Temp Pulse Pulse Resp BP BP Pulse Ox 10/19/19 19:42 36.7 C 69 19 131/58 L 94 10/19/19 16:37 63 10/19/19 15:19 36.8 C 72 18 108/62 96 10/19/19 13:00 60 126/55 L 10/19/19 12:40 61 120/51 L 10/19/19 12:20 62 118/49 L 10/19/19 12:00 59 L 123/48 L 10/19/19 11:40 60 125/51 L 10/19/19 11:20 58 L 104/47 L 10/19/19 11:00 60 121/54 L 10/19/19 10:40 61 104/43 L 10/19/19 10:20 56 L 115/48 L PG Care Time/CCT Total # of Minutes Spent Total Time Spent with Patient: Total time spent is greater than 50% in coordination of care (as documented) at patient's floor/unit and/or counseling patient: (1) Urinary tract infection Hematuria presence: without hematuria Urinary tract infection type: site unspecified Qualified Code(s): N39.0 - Urinary tract infection, site not specified
[2019-10-20] MEDS: LEVOTHYROXINE SODIUM 112 MCG TABLET PO SCH (06:04)
[2019-10-20] MEDS: ACETAMINOPHEN 325 MG TAB PO PRN (08:31)
[2019-10-20] MEDS: METOPROLOL TARTRATE 25 MG TAB PO SCH ×2 (08:32→20:54)
[2019-10-20] MEDS: AMLODIPINE BESYLATE 5 MG TAB PO SCH (08:33)
[2019-10-20] MEDS: NEPHROCAPS PO SCH (08:33)
[2019-10-20] MEDS: CALCIUM CARBONATE 500 MG CHEWABLE TAB PO SCH ×3 (08:33→17:10)
[2019-10-20] MEDS: FUROSEMIDE 20 MG TAB PO SCH ×2 (08:34→17:09)
[2019-10-20] MEDS: GABAPENTIN 100 MG CAP PO SCH (08:35)
[2019-10-20] MEDS: HydrALAZINE TAB 50 MG TAB PO SCH ×2 (08:35→20:53)
[2019-10-20] MEDS: INSULIN ASPART 100 UNITS/ML 3 ML PEN SC SCH ×4 (08:37→20:51)
[2019-10-20] MEDS: INSULIN GLARGINE SOLOSTAR 100 UNITS/ML 3 ML PEN SQ SCH (08:37)
--- NOTE | 2019-10-20 11:25 | Nephrology Progress Note ---
Date of Service October 20, 2019 Assessment & Plan (1) ESRD (end stage renal disease) on dialysis: -- HD TTS schedule -- BP and volume status are acceptable -- Medications are appropriately dosed for kidney function (2) Cystitis: -- Urine cx positive for ESBL E. Coli. Course of Ertapenem completed (3) Anemia: -- Epogen to be provided with HD -- Venofer 200 mg provided with dialysis yesterday (4) Weakness: -- Anticipate DC to rehab possibly Monday (5) Diabetes mellitus with diabetic neuropathy: (6) AF (paroxysmal atrial fibrillation): -- Anticoagulated with warfarin, no heparin used with HD (7) Hypothyroidism: Subjective No acute events overnight. Shauna was seen and evaluated this morning with her at the bedside. She is more awake today and reports overall improvement in functional status. She tolerated HD well yesterday without complications. Review of Systems Review of Systems: All systems reviewed & are unremarkable except as noted in HPI & below Physical Exam Constitutional: + frail appearing; no acute distress Eyes: no scleral abnormality and no corneal abnormality ENMT: Mouth: + dry oral mucous membranes; no oral mucosal abnormality Neck: normal visual inspection and trachea midline Respiratory: normal respiratory effort Auscultation: lungs clear to auscultation bilaterally Cardiovascular: Rate/Rhythm: regular rate Heart Sounds: normal S1 and n ormal S2 Extremities: no edema Musculoskeletal: Extremities: no cyanosis and no clubbing Skin: normal turgor; no lesions Neurologic: Motor/Sensory: no tremor and no asterixis Psychiatric: Orientation: alert and oriented x 3 Results & Data Vital Signs (Past 12 Hours) Vital Signs Temp Pulse Pulse Resp BP Pulse Ox 10/20/19 07:47 36.5 C 54 L 18 120/63 95 10/20/19 04:00 36.6 C 55 L 18 115/66 95 10/19/19 23:53 60 10/19/19 23:43 36.6 C 54 L 18 121/68 95 Laboratory Results Laboratory Results - last 24 hr 10/19/19 10/19/19 10/19/19 13:56 16:21 16:25 POC Glucose 93 221 H 299 H 10/19/19 10/20/19 20:45 07:34 POC Glucose 142 H 112 H PG Care Time/CCT Total # of Minutes Spent Total Time Spent with Patient: Total time spent is greater than 50% in coordination of care (as documented) at patient's floor/unit and/or counseling patient:
[2019-10-20] MEDS ORDERED: WARFARIN SOD 4 MG TAB PO ONE (18:28)
[2019-10-20] MEDS: GABAPENTIN 300 MG CAP PO SCH (20:53)
[2019-10-20] MEDS: ATORVASTATIN 10 MG TAB PO SCH (20:54)
--- NOTE | 2019-10-20 21:22 | Hospitalist Progress Note ---
Date of Service October 20, 2019 Assessment & Plan (1) Weakness: Multifactorial due to ongoing HD, deconditioning, & new UTI. - Continue PT/OT - Hopefully patient will get the bed in [facility] where she can also have hemodialysis TTS. -Awaiting placement likely on Sunday 10/21 (2) Anemia: Related to chronic disease and end-stage renal insufficiency. - Occasionally monitor hgb - Stable on 10/20 (3) ESRD (end stage renal disease) on dialysis: Now on HD T-Th-Sat. We are hoping to get [facility] to change her to HD MWF, so she will have a better option to get into SNF. - Patient will need AVF placed once when she is fully recovered from hospitalization. - Dr. Palma nephrology following. (4) Urinary tract infection: Urine culture from 10/07 grew ESBL E coli. - She was started on ertapenem 10/09. Finished on 10/17 as an 8-day course is entirely adequate for a UTI. (5) Hypertension: BP stable at 130/60 today on home regimen. - Continue amlodipine, Lasix, hydralazine, metoprolol (6) Hyperlipidemia: Continue atorvastatin 10 mg p.o. nightly (7) Paroxysmal atrial fibrillation: HR in the 60's - 70's, in sinus rhythm. - INR is now 3.9. - Hold warfarin; recheck tomorrow. No signs of bleeding and hgb is stable in the 10-11 range, so will not reverse. (8) Diabetes mellitus with diabetic neuropathy: A1c was 9.0% in 08/2019. - Lantus 15 units daily - Sliding scale insulin - On 10/20, blood sugars are stable in the ~100 range. (9) Hypothyroidism: TSH was 4.9 this month. - Continue home levothyroxine 112 mcg (10) DVT prophylaxis: On warfarin for afib Did not receive warfarin on monday. Will receive 4 mg on 10/20. Will need to reorder warfarin on 10/21 Subjective Patient reports no new symptoms today. Review of Systems Review of Systems: All systems reviewed & are unremarkable except as noted in HPI & below Physical Exam Physical Exam: Constitutional: WD/WN, vitals as above Eyes: EOM intact bilaterally; no conjunctival abnormality ENMT: external ear and nose normal, oropharynx normal Neck: trachea midline, no thyromegaly normal visual inspection Respiratory: normal respiratory effort, lungs clear to auscultation no respiratory distress Cardiovascular: RRR, no murmur, no edema Chest (Breasts): Chest: + vascular access device or port (Right chest wall without any erythema or warmth) Gastrointestinal (Abdomen): Inspection/Auscultation: abdomen normal to inspection; abdomen not distended Musculoskeletal: no cyanosis or clubbing, extremities motor strength 5/5 Skin: no rashes, warm and dry Neurologic: moves all extremities and awake Psychiatric: Orientation: alert, oriented to person and cooperative Results & Data Vital Signs (Past 12 Hours) Vital Signs Temp Pulse Pulse Resp BP BP Pulse Ox 10/20/19 19:00 36.7 C 67 19 137/70 94 10/20/19 17:00 126/72 10/20/19 16:11 68 10/20/19 15:18 36.7 C 69 18 95/59 L 95 10/20/19 11:54 36.6 C 58 L 18 105/61 94 PG Care Time/CCT Total # of Minutes Spent Total Time Spent with Patient: Total time spent is greater than 50% in coordination of care (as documented) at patient's floor/unit and/or counseling patient: (1) Urinary tract infection Hematuria presence: without hematuria Urinary tract infection type: site unspecified Qualified Code(s): N39.0 - Urinary tract infection, site not specified
[2019-10-21] MEDS: LEVOTHYROXINE SODIUM 112 MCG TABLET PO SCH (05:29)
[2019-10-21 06:30] LABS: Hematocrit (blood only) 29.1 % (37-47); Hemoglobin 9.6 g/dL (12.0-16.0)
[2019-10-21 07:14] LABS: Albumin Level 2.6 gm/dl (3.4-5.0); BUN Creatinine Ratio 7.4 (10-20); Calcium 8.8 mg/dl (8.5-10.1); Creatinine Clr Calc Pharmacy 6.2 ml/min; Est GFR (African American) 5.4; Est GFR (Non-African American) 4.7; Phosphorus 5.3 mg/dl (2.5-4.9); Potassium 4.6 mmol/L (3.5-5.1)
[2019-10-21] MEDS: CALCIUM CARBONATE 500 MG CHEWABLE TAB PO SCH ×3 (07:37→16:18)
[2019-10-21] MEDS: GABAPENTIN 100 MG CAP PO SCH (07:38)
[2019-10-21] MEDS: FUROSEMIDE 20 MG TAB PO SCH ×2 (07:38→16:18)
[2019-10-21] MEDS: CALCITRIOL 0.25 MCG CAPSULE PO SCH (07:39)
[2019-10-21] MEDS: HydrALAZINE TAB 50 MG TAB PO SCH ×2 (07:39→20:24)
[2019-10-21] MEDS: NEPHROCAPS PO SCH (07:39)
[2019-10-21] MEDS: INSULIN GLARGINE SOLOSTAR 100 UNITS/ML 3 ML PEN SQ SCH (07:39)
[2019-10-21] MEDS: AMLODIPINE BESYLATE 5 MG TAB PO SCH (07:39)
[2019-10-21] MEDS: METOPROLOL TARTRATE 25 MG TAB PO SCH ×2 (07:39→20:25)
[2019-10-21] MEDS: INSULIN ASPART 100 UNITS/ML 3 ML PEN SC SCH ×4 (07:41→20:26)
[2019-10-21 07:44] LABS: INR 1.8 (0.9-1.1); Prothrombin Time 17.4 Seconds (9.0-12.0)
--- NOTE | 2019-10-21 09:29 | Nephrology Progress Note ---
Date of Service October 21, 2019 Assessment & Plan (1) ESRD (end stage renal disease) on dialysis: End stage renal disease on I HD TTS schedule -- BP and volume status are acceptable -- Medications are appropriately dosed for kidney function --dialysis tomorrow as her regular schedule. --received Epogen and Venofer with dialysis, continue on Nephrocaps and phosphate binder with meal. --she can be discharged any time to rehab if bed available, tomorrow she can have dialysis at the outpatient unit if discharged. Will follow (2) Cystitis: (3) Anemia: (4) Weakness: (5) Diabetes mellitus with diabetic neuropathy: (6) AF (paroxysmal atrial fibrillation): (7) Hypothyroidism: Miladys Villatoro was seen and examined in her room this morning. She has been otherwise feeling at her baseline, no overnight events. Denies shortness of breath or chest pain. Has not been getting much physical therapy, mostly sitting in a chair. Review of Systems Review of Systems: All systems reviewed & are unremarkable except as noted in HPI & below Physical Exam Constitutional: + ill appearing; no acute distress Respiratory: normal respiratory effort, lungs clear to auscultation Cardiovascular: RRR, no murmur, no edema Neurologic: moves all extremities and awake; not confused Psychiatric: A+Ox3, euthymic affect Results & Data Vital Signs (Past 12 Hours) Vital Signs Temp Pulse Pulse Pulse Resp BP Pulse Ox 10/21/19 08:00 56 L 10/21/19 07:01 36.3 C L 56 L 18 107/60 93 10/21/19 04:00 36.7 C 58 L 20 114/65 95 10/20/19 23:22 63 10/20/19 23:00 36.5 C 62 19 118/65 95 PG Care Time/CCT Total # of Minutes Spent Total Time Spent with Patient: Total time spent is greater than 50% in coordination of care (as documented) at patient's floor/unit and/or counseling patient:
--- NOTE | 2019-10-21 15:26 | Hospitalist Progress Note ---
Date of Service October 21, 2019 Assessment & Plan (1) Weakness: Multifactorial due to ongoing HD, deconditioning, & new UTI. - Continue PT/OT - Hopefully patient will get the bed in [facility] where she can also have hemodialysis TTS. - accepted to [facility], for discharge tomorrow 10/22 (2) Anemia: Related to chronic disease and end-stage renal insufficiency. - Occasionally monitor hgb - Stable at 9.6 today (3) ESRD (end stage renal disease) on dialysis: Now on HD T--Mon. We are hoping to get [facility] to change her to HD MWF, so she will have a better option to get into SNF. - Patient will need AVF placed once when she is fully recovered from hospitalization. - Dr. Palma nephrology following. plan for HD tomorrow prior to discharge, they were unable to dialyze her today (4) Urinary tract infection: Urine culture from 10/07 grew ESBL E coli. - She was started on ertapenem 10/09. Finished on 10/17 as an 8-day course is entirely adequate for a UTI. (5) Hypertension: BP stable at 130/60 today on home regimen. - Continue amlodipine, Lasix, hydralazine, metoprolol (6) Hyperlipidemia: Continue atorvastatin 10 mg p.o. nightly (7) Paroxysmal atrial fibrillation: HR in the 60's - 70's, in sinus rhythm. - INR is now 3.9. - Hold warfarin; recheck tomorrow. No signs of bleeding and hgb is stable in the 10-11 range, so will not reverse. (8) Diabetes mellitus with diabetic neuropathy: A1c was 9.0% in 08/2019. - Lantus 15 units daily - Sliding scale insulin - On 10/20, blood sugars are stable in the ~100 range. (9) Hypothyroidism: TSH was 4.9 this month. - Continue home levothyroxine 112 mcg (10) DVT prophylaxis: On warfarin for afib INR 1.8 standing order for Coumadin 4mg daily placed today Subjective patient feels fatigued, trying to eat more although she does not like food here no pain anywhere, breathing well reviewed chart, vitals discussed with CM, accepted to [facility] tomorrow, will need HD in the morning Review of Systems Review of Systems: All systems reviewed & are unremarkable except as noted in HPI & below Physical Exam Constitutional: WD/WN, vitals as above + overweight Eyes: PERRL, conjunctivae normal, anicteric sclerae ENMT: external ear and nose normal, oropharynx normal Neck: trachea midline, no thyromegaly Respiratory: normal respiratory effort, lungs clear to auscultation Cardiovascular: RRR, no murmur, no edema Gastrointestinal (Abdomen): normal bowel sounds, soft, nontender, no hepatosplenomegaly Musculoskeletal: Head/Neck/Chest: normocephalic and head atraumatic Extremities: extremities normal to inspection and + abnormal strength (generalized weakness) Skin: no rashes, warm and dry Neurologic: patellar DTR's 2+ bilat, sensation intact and PERRL, EOMI, accommodation nl, no face palsy, no dysarthria Psychiatric: A+Ox3, euthymic affect Lymphatic: no cervical or axillary lymphadenopathy Results & Data Vital Signs (Past 12 Hours) Vital Signs Temp Pulse Pulse Resp BP Pulse Ox 10/21/19 11:39 36.8 C 54 L 18 103/62 95 10/21/19 08:00 56 L 10/21/19 07:01 36.3 C L 56 L 18 107/60 93 10/21/19 04:00 36.7 C 58 L 20 114/65 95 Laboratory Results Laboratory Results - last 24 hr 10/20/19 10/20/19 10/21/19 16:38 20:06 05:46 Hgb 9.6 L Hct 29.1 L PT INR Sodium Potassium Chloride Carbon Dioxide Anion Gap BUN Creatinine Est Cr Clr Drug Dosing Est GFR ( Amer) Est GFR (Non-Af Amer) BUN/Creatinine Ratio Glucose POC Glucose 262 H 216 H Calcium Phosphorus Albumin 10/21/19 10/21/19 10/21/19 05:46 06:51 07:36 Hgb Hct PT 17.4 H INR 1.8 H Sodium 133 L Potassium 4.6 Chloride 101 Carbon Dioxide 22 Anion Gap 11.0 BUN 52 H Creatinine 7.15 H* D Est Cr Clr Drug Dosing 6.2 Est GFR ( Amer) 5.4 Est GFR (Non-Af Amer) 4.7 BUN/Creatinine Ratio 7.4 L Glucose 115 H POC Glucose 134 H Calcium 8.8 Phosphorus 5.3 H Albumin 2.6 L 10/21/19 11:36 Hgb Hct PT INR Sodium Potassium Chloride Carbon Dioxide Anion Gap BUN Creatinine Est Cr Clr Drug Dosing Est GFR ( Amer) Est GFR (Non-Af Amer) BUN/Creatinine Ratio Glucose POC Glucose 191 H Calcium Phosphorus Albumin Medications Administered Current Inpatient Medications Acetaminophen (Tylenol) 650 mg PO Q4H PRN PRN Reason: fever or pain Stop: 11/06/19 20:50 Last Admin: 10/20/19 08:31 Dose: 650 mg Documented by: Amlodipine Besylate (Norvasc) 10 mg PO DAILY [facility] Stop: 11/07/19 08:59 Last Admin: 10/21/19 07:39 Dose: 10 mg Documented by: Atorvastatin Calcium (Lipitor) 10 mg PO HS [facility] Stop: 11/06/19 20:59 Last Admin: 10/20/19 20:54 Dose: 10 mg Documented by: Calcitriol (Rocaltrol) 0.25 mcg PO MoWeFr@0900 [facility] Stop: 11/08/19 08:59 Last Admin: 10/21/19 07:39 Dose: 0.25 mcg Documented by: Calcium Carbonate (Tums) 500 mg PO TIDM [facility] Stop: 11/07/19 07:59 Last Admin: 10/21/19 11:55 Dose: 500 mg Documented by: Dextrose (Dextrose 50%) 25 - 50 ml IV UD PRN; Protocol PRN Reason: Hypoglycemia Protocol Stop: 11/06/19 20:50 Docusate Sodium (Colace) 100 mg PO BID PRN PRN Reason: Constipation Stop: 11/16/19 21:14 Last Admin: 10/17/19 21:48 Dose: 100 mg Documented by: Furosemide (Lasix) 20 mg PO BID17 [facility] Stop: 11/06/19 20:59 Last Admin: 10/21/19 07:38 Dose: 20 mg Documented by: Gabapentin (Neurontin) 100 mg PO QAM [facility] Stop: 11/07/19 08:59 Last Admin: 10/21/19 07:38 Dose: 100 mg Documented by: Gabapentin (Neurontin) 300 mg PO HS [facility] Stop: 11/06/19 20:59 Last Admin: 10/20/19 20:53 Dose: 300 mg Documented by: Glucagon (Glucagen) 1 mg SQ UD PRN; Protocol PRN Reason: Hypoglycemia Protocol Stop: 11/06/19 20:50 Glucose (Dex4 Glucose) 4 - 8 tabs PO UD PRN; Protocol PRN Reason: Hypoglycemia Protocol Stop: 11/06/19 20:50 Glucose (Glucose 40%) 15 - 30 gm PO UD PRN; Protocol PRN Reason: Hypoglycemia Protocol Stop: 11/06/19 20:50 Hydralazine HCl (Apresoline) 100 mg PO BID [facility] Stop: 11/06/19 20:59 Last Admin: 10/21/19 07:39 Dose: 100 mg Documented by: Sodium Chloride (Nss 1000ml) 1,000 mls @ 0 mls/hr IV .Q0M PRN PRN Reason: For Hemodialysis Use ONLY Stop: 10/22/19 12:59 Insulin Aspart (Novolog Flexpen) 0 units SC ACHS [facility] Stop: 11/06/19 20:59 Last Admin: 10/21/19 11:54 Dose: 6 units Documented by: Insulin Glargine (Lantus Solostar Pen) 15 units SQ DAILY [facility] Stop: 11/07/19 08:59 Last Admin: 10/21/19 07:39 Dose: 15 units Documented by: Levothyroxine Sodium (Synthroid) 112 mcg PO DAILYBB [facility] Stop: 11/07/19 06:29 Last Admin: 10/21/19 05:29 Dose: 112 mcg Documented by: Magnesium Hydroxide (Milk Of Magnesia) 30 ml PO Q6H PRN PRN Reason: Constipation Stop: 11/16/19 21:07 Meclizine HCl (Antivert) 12.5 mg PO TID PRN PRN Reason: Vertigo Stop: 11/06/19 20:50 Metoprolol Tartrate (Lopressor) 25 mg PO BID [facility] Stop: 11/06/19 20:59 Last Admin: 10/21/19 07:39 Dose: 25 mg Documented by: Miscellaneous (Carbohydrates For Hypoglycemia) 15 - 30 gm PO UD PRN PRN Reason: Hypoglycemia Protocol Stop: 11/06/19 20:50 Polyethylene Glycol (Miralax Powder Packet) 17 gm PO DAILY PRN PRN Reason: Constipation Stop: 11/16/19 21:07 Sennosides (Senokot) 8.6 mg PO QAM PRN PRN Reason: Constipation Stop: 11/17/19 08:59 Vitamin B Complex/Folic Acid (Nephrocaps) 1 cap PO QAM [facility] Stop: 11/07/19 10:59 Last Admin: 10/21/19 07:39 Dose: 1 cap Documented by: Warfarin Sodium (Coumadin) 4 mg PO DAILY@1600 [facility] Stop: 11/20/19 15:59 PG Care Time/CCT Total # of Minutes Spent Total Time Spent with Patient: Total time spent is greater than 50% in coordination of care (as documented) at patient's floor/unit and/or counseling patient: (1) Urinary tract infection Hematuria presence: without hematuria Urinary tract infection type: site unspecified Qualified Code(s): N39.0 - Urinary tract infection, site not specified
[2019-10-21] MEDS ORDERED: WARFARIN SOD 4 MG TAB PO SCH (16:00)
[2019-10-21] MEDS ORDERED: MICONAZOLE NITRATE POWDER 43 GM EXT PRN (17:50)
[2019-10-21] MEDS: GABAPENTIN 300 MG CAP PO SCH (20:25)
[2019-10-21] MEDS: ATORVASTATIN 10 MG TAB PO SCH (20:25)
[2019-10-22] MEDS: LEVOTHYROXINE SODIUM 112 MCG TABLET PO SCH (05:59)
[2019-10-22] MEDS ORDERED: SODIUM CHLORIDE 0.9% 1000ML 1,000 ML IV PRN (07:00)
[2019-10-22] MEDS: INSULIN GLARGINE SOLOSTAR 100 UNITS/ML 3 ML PEN SQ SCH (07:55)
[2019-10-22] MEDS: INSULIN ASPART 100 UNITS/ML 3 ML PEN SC SCH ×2 (07:56→13:30)
[2019-10-22] MEDS: NEPHROCAPS PO SCH (07:57)
[2019-10-22] MEDS: GABAPENTIN 100 MG CAP PO SCH (07:57)
[2019-10-22] MEDS: CALCIUM CARBONATE 500 MG CHEWABLE TAB PO SCH (07:57)
[2019-10-22 11:03] LABS: Hepatitis B Surface Ab Quant < 3.10 mIU/mL (>or=10mIU/mL Immune); Hepatitis B Surface Antibody Non-Immune
[2019-10-22] MEDS: HydrALAZINE TAB 50 MG TAB PO SCH (11:09)
[2019-10-22] MEDS: FUROSEMIDE 20 MG TAB PO SCH (11:09)
[2019-10-22] MEDS: AMLODIPINE BESYLATE 5 MG TAB PO SCH (11:10)
[2019-10-22] MEDS: METOPROLOL TARTRATE 25 MG TAB PO SCH (11:10)
[2019-10-22 11:13] LABS: Hepatitis B Surface Antigen Neg (Neg)
--- NOTE | 2019-10-22 11:50 | Nephrology Progress Note ---
Date of Service October 22, 2019 Assessment & Plan (1) ESRD (end stage renal disease) on dialysis: End stage renal disease on I HD TTS schedule -- BP and volume status are acceptable -- Medications are appropriately dosed for kidney function --having dialysis now, tolerating well. --received Epogen and Venofer with dialysis, continue on Nephrocaps and phosphate binder with meal. --she can be discharged after dialysis, next dialysis will be on at [facility]. Will follow (2) Cystitis: (3) Anemia: -- Epogen to be provided with HD -- Venofer 200 mg provided with dialysis yesterday (4) Weakness: -- Anticipate DC to rehab possibly Monday (5) Diabetes mellitus with diabetic neuropathy: (6) AF (paroxysmal atrial fibrillation): (7) Hypothyroidism: Miladys Villatoro was seen and examined during dialysis this morning. She has been tolerating dialysis well, denies any dizziness, lightheadedness, leg cramp. Vital signs has been stable. Physical Exam Constitutional: + ill appearing; no acute distress Respiratory: normal respiratory effort, lungs clear to auscultation Cardiovascular: RRR, no murmur, no edema Neurologic: moves all extremities and awake; not confused Psychiatric: A+Ox3, euthymic affect Results & Data Vital Signs (Past 12 Hours) Vital Signs Temp Pulse Pulse Resp BP BP BP 10/22/19 11:00 63 120/60 10/22/19 10:41 60 10/22/19 10:40 60 124/58 L 10/22/19 10:20 60 124/59 L 10/22/19 10:00 62 115/58 L 10/22/19 09:40 60 119/51 L 10/22/19 09:20 64 124/61 10/22/19 09:01 57 L 137/67 10/22/19 08:48 36.5 C 60 10/22/19 07:19 36.4 C L 54 L 18 121/65 10/22/19 04:00 36.6 C 60 20 118/64 10/21/19 23:53 36.4 C L 59 L 20 104/60 Pulse Ox 10/22/19 11:00 10/22/19 10:41 10/22/19 10:40 10/22/19 10:20 10/22/19 10:00 10/22/19 09:40 10/22/19 09:20 10/22/19 09:01 10/22/19 08:48 10/22/19 07:19 96 10/22/19 04:00 95 10/21/19 23:53 95 PG Care Time/CCT Total # of Minutes Spent Total Time Spent with Patient: Total time spent is greater than 50% in coordination of care (as documented) at patient's floor/unit and/or counseling patient:
--- NOTE | 2019-10-27 21:18 | Discharge Summary ---
Date of Service October 22, 2019 Admission HPI Per Admitting Provider 89-year-old female presents for feeling of generalized fatigue and weakness. Unclear how long this is been occurring, perhaps 1 to 2 weeks per the patient. [Of note, patient was discharged from the hospital on September 25 for very similar symptoms.] She is not really volunteering any information but will answer questions slowly. At the time of this H&P, her daughter is not present. Patient states that she gets cramps in her right foot/leg that are improved by a heating pad and Tylenol. She notes some loose stools yesterday but none today. Denies vomiting or abdominal symptoms. When mentioned that she may have a UTI, she wonders why because she has no pain with urination. Otherwise she denies any chest pain, cough or difficulty breathing, or other focal concerns. She asks if she will undergo some level of inpatient rehabilitation because she wants to go home. - Past medical history includes hypertension, hyperlipidemia, paroxysmal atrial fibrillation, diabetes, diabetic neuropathy gait disturbance, anemia, hypothyroidism, arthritis, right humerus fracture, hematuria, pneumonia, pleural effusion, pericardial effusion, end-stage renal disease on dialysis, gout, dizziness, decreased vision/macular degeneration - Past surgical history includes D&C, cholecystectomy, Mohs surgery - Social history includes never smoking. Denies alcohol use. Lives at home with , daughter from [place] is visiting. Principal Diagnosis weakness Discharge Exam Constitutional: WD/WN, vitals as above + overweight Eyes: PERRL, conjunctivae normal, anicteric sclerae ENMT: external ear and nose normal, oropharynx normal Neck: trachea midline, no thyromegaly Respiratory: normal respiratory effort, lungs clear to auscultation Cardiovascular: RRR, no murmur, no edema Gastrointestinal (Abdomen): normal bowel sounds, soft, nontender, no hepatosplenomegaly Musculoskeletal: Head/Neck/Chest: normocephalic and head atraumatic Extremities: extremities normal to inspection and + abnormal strength (generalized weakness) Skin: no rashes, warm and dry Neurologic: patellar DTR's 2+ bilat, sensation intact and PERRL, EOMI, accommodation nl, no face palsy, no dysarthria Psychiatric: A+Ox3, euthymic affect Lymphatic: no cervical or axillary lymphadenopathy Discharge Data Allergies Allergy/AdvReac Type Severity Reaction Status Date / Time No Known Allergies Allergy Unverified 10/07/19 16:17 Consultations 10/07/19 17:17 ED Decision to Admit Stat 10/07/19 20:51 Consult Case Management - Discharge Planning Routine Consult Nephrology Routine Ordered Studies 10/07/19 14:40 CT head/brain wo con Stat Hospital Course (1) Weakness: Multifactorial due to ongoing HD, deconditioning, & new UTI. - Continue PT/OT - Hopefully patient will get the bed in [facility] where she can also have hemodialysis TTS. - accepted to [facility], for discharge today on 10/22 (2) Anemia: Related to chronic disease and end-stage renal insufficiency. - Occasionally monitor hgb - Stable at 9.6 today (3) ESRD (end stage renal disease) on dialysis: Now on HD T-. We are hoping to get [facility] to change her to HD MWF, so she will have a better option to get into SNF. - Patient will need AVF placed once when she is fully recovered from hospitalization. - Dr. Palma nephrology following. (4) Urinary tract infection: Urine culture from 10/07 grew ESBL E coli. - She was started on ertapenem 10/09. Finished on 10/17 as an 8-day course is entirely adequate for a UTI. (5) Hypertension: BP stable at 130/60 today on home regimen. - Continue amlodipine, Lasix, hydralazine, metoprolol (6) Hyperlipidemia: Continue atorvastatin 10 mg p.o. nightly (7) Paroxysmal atrial fibrillation: HR in the 60's - 70's, in sinus rhythm. - INR was supratherapuetic. - Held warfarin for a day, will recheck as outpatient; No signs of bleeding and hgb is stable in the 10-11 range, so will not reverse. (8) Diabetes mellitus with diabetic neuropathy: A1c was 9.0% in 08/2019. - Lantus 15 units daily - Sliding scale insulin - On 10/20, blood sugars are stable in the ~100 range. (9) Hypothyroidism: TSH was 4.9 this month. - Continue home levothyroxine 112 mcg (10) DVT prophylaxis: On warfarin for afib INR 1.8 standing order for Coumadin 4mg daily placed today Total Time Total Time Spent Total Time Spent (In Minutes): 35 Discharge Plan Discharge Items Patient Disposition: Transfer Senior Living Fac Reason For Visit: WEAKNESS,UTI, ESRD ON DIALYSIS Discharge Diagnosis: ESRD Activity: Resume your previous activity Non-emergency contact: Primary Care Provider Call non-emergency contact if: you have any medication questions Follow-up/Referrals: Mauri Hinojosa MD [Primary Care Provider] - Diet: Carb Consistent or DM2 and Dialysis Renal Diet Texture: Dental soft (bite-sized) Addtl Attending Provider Instructions: Check INR in 3-4 days You have been hospitalized for an acute medical problem. During your stay at [facility], we have made an effort to correct the problem that brought you to the hospital while keeping you as comfortable as possible. Medications were used to bring your condition under control and your discharge instructions will include directions for any medications you should take after leaving the hospital. Please make sure you see your Primary Care Provider as part of your follow up plan. Pending Studies at Discharge: No Stand-Alone Forms: My [facility] Skilled Items Patient informed of condition?: No DNR: No Discharge Level of Care: Skilled Communicable Disease: No Discharge Prognosis: Stable Lines: None Urinary Catheter: No Medications and DC Order Prescriptions: Continued (DME) lancets [OneTouch Delica Lancets] 33 gauge misc See Dose Instructions .ROUTE .MEDSUPPLY Qty: 400 RF: 5 gabapentin 300 mg capsule 300 mg PO HS Qty: 30 RF: 5 gabapentin 100 mg capsule 100 mg PO QAM Qty: 30 RF: 5 (DME) pen needle, diabetic [BD Ultra-Fine [place] Pen Needle] 32 gauge x 5/32" needle See Dose Instructions .ROUTE .MEDSUPPLY Qty: 360 RF: 3 levothyroxine 112 mcg tablet 112 mcg PO QAM Qty: 30 RF: 5 metoprolol tartrate 25 mg tablet 25 mg PO BID Qty: 30 RF: 5 (DME) OneTouch Verio strip See Dose Instructions .ROUTE .MEDSUPPLY Qty: 400 RF: 3 meclizine 12.5 mg tablet 12.5 mg PO TID PRN (Reason: Vertigo) Qty: 30 RF: 1 insulin lispro 100 unit/mL insulin pen 20 units subcut DAILY Qty: 7 RF: 0 acetaminophen 325 mg tablet 650 mg PO Q4H PRN (Reason: fever or pain) RF: 0 hydralazine 50 mg tablet 100 mg PO BID RF: 0 atorvastatin 10 mg tablet 10 mg PO HS RF: 0 PreserVision AREDS [id number] Capsule 1 cap PO BID RF: 0 cholecalciferol (vitamin D3) [Vitamin D3] 2,000 unit Tablet 2,000 unit PO QAM RF: 0 amlodipine 10 mg tablet 10 mg PO DAILY 30 Days Qty: 30 RF: 2 furosemide 20 mg Tablet 20 mg PO BID 30 Days Qty: 60 RF: 2 Lantus Solostar U-100 Insulin 100 unit/mL (3 mL) Insulin Pen 15 unit subcut QDD 30 Days Qty: 4.5 RF: 2 Renal Caps 1 mg Capsule 1 cap PO QAM 30 Days Qty: 30 RF: 2 calcitriol 0.25 mcg Capsule 0.25 mcg PO MoWeFr@0900 30 Days Qty: 20 RF: 2 Discontinued sodium bicarbonate 650 mg tablet 650 mg PO .ON HOLD RF: 0 Discharge Orders: Discharge Order (Routine); Ordered 10/22/19 Ordered By: Juan Manuel Mark Admission Data Admit Date/Time: 10/07/19 18:46 Attending Provider: Juan Manuel Mark Admit Provider: Jonathan Martinez Primary Care Provider: Mauri Hinojosa V. Other Providers: Diallo Winn ; Braden Tripathi ; Yesika Vera at [place] ; Letitia Garcia Other Interventions: Discharge Summary Assessment (RN) Last Done: 10/22/19 13:45 DC Date/Time DO NOT enter until pt leaves facility: 10/22/19 14:19
== END 2019-10-22 14:19 | DRG 689 ==
LOC: ED 12:06 → SUATTDRO 18:46 → 2W 18:46

== ENCOUNTER 2020-08-19 11:36 | Inpatient (IN) ==
[2020-08-19] MEDS ORDERED: SODIUM CHLORIDE 0.9% 500 ML IV SCH (13:00)
--- NOTE | 2020-08-19 13:00 | Emergency Department Note ---
Impression & Plan Urinary tract infection, Compression fx, thoracic spine, Renal failure, chronic ED Provider Note NAME: KAIN GANNON AGE: 89 SEX: F : 1930 ARRIVES VIA: Walk-In INFORMANT: Patient, ED PROVIDER(S): Ronaldo Wilkinson DO CHIEF COMPLAINT: Back pain HPI: The patient is an 89-year-old female who has a history of dialysis who pres ented to the emergency department for generalized weakness. The patient has been experiencing very severe back pain. She was seen in our facility recently for this back pain and had a work-up which included radiographic studies showing a T12 compression fracture. Ever since that time she is been having severe pain and difficulty ambulating. 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 She was sent to the emergency department for further evaluation because of difficulty ambulating generalized weakness and also heart palpitations. Her caregiver also notes that she has been having cloudy urine and decreased urine output. The patient denies having any chest pain at this time. She denies having any abdominal pain. She does say her back pain is moderate to severe at times. Especially with any ambulation. ROS: See above HPI for pertinent positives & negatives. A total of 10 systems reviewed and were otherwise negative. PAST MEDICAL HISTORY: See Below PAST SURGICAL HISTORY: See Below FAMILY HISTORY: See Below SOCIAL HISTORY: See Below HOME MEDICATIONS: See Below ALLERGIES: See Below VITALS: See Below PHYSICAL EXAMINATION: GENERAL: The patient is awake and alert. She is somewhat anxious and uncomfortable appearing. EYES: The conjunctivae are clear. The pupils are round and reactive. EARS, NOSE, MOUTH AND THROAT: The nose is without any evidence of any deformity. NECK: The neck is nontender and supple. RESPIRATORY: Normal respiratory effort is noted there is no evidence of wheezing rhonchi or rales CARDIOVASCULAR: Regular rate and rhythm were noted to auscultation. Systolic murmur was suggested. GASTROINTESTINAL: The abdomen is soft. Abdomen is nontender. BACK: The patient has pain with any range of motion testing of the back. She does have midline tenderness in the mid spine. MUSCULOSKELETAL/EXTREMITIES: There is no evidence of gross deformity full range of motion is noted in the hips and shoulders. SKIN: Pedal pulses were symmetric. Lower extremity edema was noted bilaterally. NEUROLOGIC: Patient is awake alert and oriented x3 strength is symmetric patellar reflexes are 2+ bilaterally MEDICAL DECISION MAKING: Patient is an 89-year-old female who presented to the emergency department with her caregiver with multiple complaints. Unfortunately patient recently started to develop severe back pain. She was diagnosed with a compression fracture. Because of this she has had very severe difficulty ambulating. She has had visiting nursing as well as home occupational and physical therapy. Her visiting nurse brought her to the emergency department today with concerns of urinary tract infection. The patient's been experiencing generalized weakness. She was treated with a small fluid bolus as well as IV antibiotics. I did review the patient's previous urine cultures and she does appear to be frequently infected with E. coli ESBL. She was reevaluated multiple times. Ultimately I did discuss her case with the on-call [facility] hospitalist group. She may require further inpatient management. Triage Nursing notes reviewed. Prior medical records reviewed Vital Signs: reviewed and remarkable for no significant abnormalities Differential diagnosis: Infection, dehydration, metabolic abnormality, hypo/hyperglycemia, electrolyte disturbance, anemia, hypoxia, cardiac sources, intracerebral event, toxicologic, neurologic, as well as other pathologies. ER treatment provided: See below Diagnostics interpreted by me: ECG: EKG was obtained in the emergency department. My interpretation is sinus bradycardia at 56 bpm. Inferior Q waves were noted. Low voltage was noted throughout. High lateral T wave inversions were also noted. This was compared to a tracing from April 292019. No significant changes were noted. Cardiac Monitoring: An order was placed for continuous cardiac monitoring. The monitor shows a rate of 72 bpm with sinus rhythm. Laboratory studies: As stated above and show below. Imaging studies: See below Consultation(s): 1530: I discussed this case with Kameron and Dr. Stephens. They will evaluate the patient in the emergency department. Past Med/Surg History Medical History (Updated 08/19/20 @ 20:06 by Ronaldo Wilkinson DO) Arthritis Basosquamous carcinoma of skin Chronic lower back pain Closed fracture of shaft of humerus (04/09/11) hx right arm Congestive heart failure Depression Diabetic nephropathy ESRD (end stage renal disease) on dialysis [facility] Tues/Thurs/Sat Hematuria hx Hyperlipidemia Hypertension Hypothyroidism Paroxysmal atrial fibrillation Pericardial effusion hx Type 2 diabetes mellitus Urinary tract infection hx Surgical History History of cataract surgery bilateral History of cholecystectomy S/P dialysis catheter insertion S/P dilation and curettage Family History Mother Diabetes Hypertension Macular degeneration Hypothyroidism Denies family history of Ovarian cancer Myocardial infarction Breast cancer Colorectal cancer Social History Smoking Status: Never smoker Second Hand Exposure: No; Hx Alcohol Use: No Hx Substance Use: No Preferred Language: Macanese Communication Ability: Effective Visual Impairment: No Limitations Hearing Ability: Normal 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 Beliefs That Will Affect Care: None marital status: Current Living Situation: Spouse Current Living Situation Comment: [employer] [employer] current occupational status: retired How many Children do You have: 3 Other Information That Helps Us Care for You: No Feels Safe at Home: Yes Safety Concerns: Feels Safe At This Time Childhood Exposure to Second-Hand Smoke: No Physical Activity Frequency: Does not Exercise Seatbelt Use: always Assistive Devices: Walker and Wheelchair Allergies Allergies Allergy/AdvReac Type Severity Reaction Status Date / Time No Known Allergies Allergy Verified 08/19/20 15:08 Home Meds Home Medications Medication Instructions Recorded Confirmed PreserVision AREDS 1 cap PO BID 12/17/18 08/19/20 Biofreeze (menthol) 1 applic TOPICAL BID 04/14/20 08/19/20 bisacodyl [Dulcolax (bisacodyl)] 10 mg NJ UD PRN 04/14/20 08/19/20 calcium carbonate 500 mg PO TIDM 04/14/20 08/19/20 docusate sodium [Colace] 100 mg PO DAILY 04/14/20 08/19/20 acetaminophen 325 mg tablet 650 mg PO BID PRN tab 05/27/20 08/19/20 gabapentin 100 mg capsule 100 mg PO DAILY cap 08/19/20 08/19/20 gabapentin 300 mg capsule 300 mg PO QPM cap 08/19/20 08/19/20 insulin aspart U-100 [Novolog 40 units SQ TIDM 08/19/20 08/19/20 Flexpen U-100 Insulin] lidocaine HCl [Aspercreme 1 ea TOPICAL DIRECTED PRN 08/19/20 08/19/20 (lidocaine HCl)] warfarin 4 mg PO PM 08/19/20 08/19/20 Previous Rx's Medication Instructions Recorded amlodipine 10 mg tablet 10 mg PO DAILY 90 Days #90 tab 05/28/20 atorvastatin 10 mg tablet 10 mg PO HS #90 tab 05/28/20 furosemide 20 mg tablet 20 mg PO BID 30 Days #60 tab 05/28/20 hydralazine 100 mg tablet 100 mg PO BID #60 tab 05/28/20 levothyroxine 112 mcg tablet 112 mcg PO QAM #30 tab 05/28/20 metoprolol tartrate 25 mg tablet 25 mg PO BID #46 tab 05/28/20 sertraline 25 mg tablet 25 mg PO DAILY #30 tab 05/28/20 BD Ultra-Fine [place] Pen Needle 32 #400 ea NS 05/29/20 gauge x 5/32" Lantus Solostar U-100 Insulin 100 See Rx Instructions SUBCUT DAILY 05/29/20 unit/mL (3 mL) subcutaneous pen 90 Days #30 ml NS ReglareTouch Delica Plus Lancet 33 #400 ea NS 05/29/20 gauge ReglareTouch Verio test strips #400 ea NS 05/29/20 flash glucose scanning reader #1 ea 06/03/20 flash glucose sensor #1 ea 06/03/20 vitamin B complex and vitamin C 1 cap PO QAM 30 Days #90 cap 07/23/20 no.20-folic acid 1 mg capsule lidocaine 4 % topical patch 1 patch TOPICAL DAILY #10 ea 08/14/20 oxycodone 5 mg PO Q4H PRN #15 tab 08/15/20 Results & Data (ED) Vital Signs Vital Signs - 24 hr 08/19/20 11:42 08/19/20 13:33 08/19/20 13:36 Temperature 37.3 C Temperature Source Oral Pulse Rate 59 L 58 L Pulse Rate from SpO2 Sensor 58 L Respiratory Rate 18 20 Respiratory Effort / Characteristics Non-Labored Spontaneous Respiratory Depth Normal Blood Pressure 103/53 L 113/57 L Blood Pressure Mean 69 85 Pulse Oximetry 94 97 95 Oxygen Delivery Method Room Air Room Air Room Air Sepsis Recent Fever Within 48 Hours No Sepsis New/Unexplained Change in Mental Status No Sepsis Action Taken by Nursing No Action Required 08/19/20 14:00 08/19/20 14:30 08/19/20 15:00 Temperature Temperature Source Pulse Rate 58 L 60 63 Pulse Rate from SpO2 Sensor 58 L Respiratory Rate 16 18 27 H Respiratory Effort / Characteristics Respiratory Depth Blood Pressure 103/55 L 117/49 L 116/53 L Blood Pressure Mean 78 78 77 Pulse Oximetry 96 98 Oxygen Delivery Method Sepsis Recent Fever Within 48 Hours Sepsis New/Unexplained Change in Mental Status Sepsis Action Taken by Nursing 08/19/20 15:30 08/19/20 16:00 Temperature Temperature Source Pulse Rate 61 61 Pulse Rate from SpO2 Sensor Respiratory Rate 19 15 Respiratory Effort / Characteristics Respiratory Depth Blood Pressure 119/49 L 119/52 L Blood Pressure Mean 77 64 Pulse Oximetry Oxygen Delivery Method Sepsis Recent Fever Within 48 Hours Sepsis New/Unexplained Change in Mental Status Sepsis Action Taken by Correction Medications Current Medication List: was personally reviewed by me Laboratory Data Attestation: I reviewed the patient's lab results. Result diagrams: 08/19/20 14:22 08/19/20 14:22 Lab Results 08/19/20 08/19/20 08/19/20 Range/Units 13:30 14:22 14:22 WBC (4.8-10.8) K/uL RBC (4.2-5.4) M/uL Hgb (12.0-16.0) g/dL Hct (37-47) % MCV (80-100) fL MCH (25-34) pg MCHC (32-36) g/dL RDW Std Deviation (36.4-46.3) fL RDW Coeff of Jon (11.5-14.5) % Plt Count (130-400) K/uL MPV (7.4-10.4) fL Immature Gran % (Auto) % Neut % (Auto) % Lymph % (Auto) % Jennings % (Auto) % Eos % (Auto) % Baso % (Auto) % Neut # (Auto) (1.4-6.5) K/uL Lymph # (Auto) (1.2-3.4) K/uL Jennings # (Auto) (0.11-0.59) K/uL Eos # (Auto) (0-0.5) K/uL Baso # (Auto) (0-0.2) K/uL Immature Gran # (Auto) (0.00-0.02) K/uL PT 40.4 H (9.0-12.0) Seconds INR 4.1 H (0.9-1.1) APTT 52.1 H* (21.0-31.0) Seconds PTT Ratio 1.9 Sodium 137 (136-145) mmol/L Potassium 4.9 (3.5-5.1) mmol/L Chloride 100 (98-107) mmol/L Carbon Dioxide 29 (21-32) mmol/L Anion Gap 8.0 (3-11) BUN 41 H (7-18) mg/dl Creatinine 6.57 H* (0.6-1.2) mg/dl Est Cr Clr Drug Dosing 6.6 ml/min Est GFR ( Amer) 6.0 Est GFR (Non-Af Amer) 5.2 BUN/Creatinine Ratio 6.2 L (10-20) Glucose 78 (70-99) mg/dl Calcium 9.2 (8.5-10.1) mg/dl Magnesium 2.1 (1.8-2.4) mg/dl Total Bilirubin 0.5 (0.2-1) mg/dl AST 21 (15-37) U/L ALT 19 (12-78) U/L Alkaline Phosphatase 90 (45-117) U/L Troponin I 0.019 (0-0.045) ng/ml Total Protein 6.9 (6.4-8.2) gm/dl Albumin 2.7 L (3.4-5.0) gm/dl Globulin 4.2 H (2.5-4.0) gm/dl Albumin/Globulin Ratio 0.6 L (0.9-2) TSH 2.640 (0.300-4.500) uIu/ml Urine Color Yellow Urine Appearance Turbid A (Clear) Urine pH 8.0 H (4.5-7.5) Ur Specific [place] 1.015 (1.000-1.030) Urine Protein 3+ H (Negative) Urine Glucose (UA) Negative (Negative) Urine Ketones Negative (Negative) Urine Blood 2+ H (Negative) Urine Nitrite Negative (Negative) Urine Bilirubin Negative (Negative) Urine Urobilinogen Negative (Negative) Ur Leukocyte Esterase 3+ H (Negative) Urine WBC (Auto) >30 H (0-5) /hpf Urine RBC (Auto) 10-30 H (0-4) /hpf U Hyaline Cast (Auto) 0 (0-5) /lpf U Epithel Cells (Auto) 10-20 H (0-5) /lpf Urine Bacteria (Auto) 1+ H (Negative) Urine Yeast Not Reportable 08/19/20 Range/Units 14:22 WBC 7.52 (4.8-10.8) K/uL RBC 3.07 L (4.2-5.4) M/uL Hgb 10.5 L (12.0-16.0) g/dL Hct 32.9 L (37-47) % MCV 107.2 H (80-100) fL MCH 34.2 H (25-34) pg MCHC 31.9 L (32-36) g/dL RDW Std Deviation 59.9 H (36.4-46.3) fL RDW Coeff of Jon 15.4 H (11.5-14.5) % Plt Count 400 (130-400) K/uL MPV 9.6 (7.4-10.4) fL Immature Gran % (Auto) 0.3 % Neut % (Auto) 50.3 % Lymph % (Auto) 29.7 % Jennings % (Auto) 16.0 % Eos % (Auto) 3.3 % Baso % (Auto) 0.4 % Neut # (Auto) 3.79 (1.4-6.5) K/uL Lymph # (Auto) 2.23 (1.2-3.4) K/uL Jennings # (Auto) 1.20 H (0.11-0.59) K/uL Eos # (Auto) 0.25 (0-0.5) K/uL Baso # (Auto) 0.03 (0-0.2) K/uL Immature Gran # (Auto) 0.02 (0.00-0.02) K/uL PT (9.0-12.0) Seconds INR (0.9-1.1) APTT (21.0-31.0) Seconds PTT Ratio Sodium (136-145) mmol/L Potassium (3.5-5.1) mmol/L Chloride (98-107) mmol/L Carbon Dioxide (21-32) mmol/L Anion Gap (3-11) BUN (7-18) mg/dl Creatinine (0.6-1.2) mg/dl Est Cr Clr Drug Dosing ml/min Est GFR ( Amer) Est GFR (Non-Af Amer) BUN/Creatinine Ratio (10-20) Glucose (70-99) mg/dl Calcium (8.5-10.1) mg/dl Magnesium (1.8-2.4) mg/dl Total Bilirubin (0.2-1) mg/dl AST (15-37) U/L ALT (12-78) U/L Alkaline Phosphatase (45-117) U/L Troponin I (0-0.045) ng/ml Total Protein (6.4-8.2) gm/dl Albumin (3.4-5.0) gm/dl Globulin (2.5-4.0) gm/dl Albumin/Globulin Ratio (0.9-2) TSH (0.300-4.500) uIu/ml Urine Color Urine Appearance (Clear) Urine pH (4.5-7.5) Ur Specific [place] (1.000-1.030) Urine Protein (Negative) Urine Glucose (UA) (Negative) Urine Ketones (Negative) Urine Blood (Negative) Urine Nitrite (Negative) Urine Bilirubin (Negative) Urine Urobilinogen (Negative) Ur Leukocyte Esterase (Negative) Urine WBC (Auto) (0-5) /hpf Urine RBC (Auto) (0-4) /hpf U Hyaline Cast (Auto) (0-5) /lpf U Epithel Cells (Auto) (0-5) /lpf Urine Bacteria (Auto) (Negative) Urine Yeast Administered Medications Discontinued Medications Sodium Chloride (Nss) 500 mls @ 999 mls/hr IV .Q31M REYMUNDO Stop: 08/19/20 13:30 Last Infusion: 08/19/20 14:15 Dose: 0 mls/hr Documented by: [id number] Admin: 08/19/20 13:42 Dose: 999 mls/hr Documented by: [id number] Ertapenem 500 mg/ Sodium (Chloride) 55 mls @ 100 mls/hr IV ONE ONE Stop: 08/19/20 15:31 Last Infusion: 08/19/20 16:05 Dose: 0 mls/hr Documented by: [id number] Admin: 08/19/20 15:25 Dose: 100 mls/hr Documented by: [id number] Ioversol (Optiray 320 125ml) 116 ml IV ONCE ONE Stop: 08/19/20 18:16 Last Admin: 08/19/20 18:16 Dose: 116 ml Documented by: [id number] Imaging Data Radiologist's Impression: [facility] [place] [phone] XRay Report Patient: KAIN GANNON Date: 08/19/20 MR#: [id number]: 420 KAUSHAL Acct ID:[id number]: Date: 1930ity Zip: [place] [address] Age: 89Location: ED Sex: FRoom/Bed: Att Phy:Diagnosis: LOWER BACK PAIN, POSSIBLE UTI Lindy Phy: RV. Marina, MDService Date: 08/19/20 Fam Phy:Interpreting Phy: Cristóbal Davis MD Admit Phy: Ordering Phy: Ronaldo Wilkinson, cc: ~ XR chest 1V portable CLINICAL HISTORY: weakness COMPARISON STUDY: 10/07/2019 FINDINGS: The heart is the upper limits of normal in size. There is a right- sided dual-lumen central venous catheter. There is mild elevation of interstitium similar to the prior study. The left heart border remains obscured, findings similar to the prior studies and likely secondary to a combination of fat pad and atelectasis/scarring.[ IMPRESSION: 1. Stable interstitial thickening 2. The left lateral heart border is obscured. This finding has been present on prior studies and while nonspecific is likely secondary to a combination of fat pad and atelectasis/scarring. ACT 112: Negative or not required by law. Electronically signed by: Cristóbal Davis M.D. 08/19/2020 2:33 PM Dictated: 08/19/20 1431 Transcribed: 08/19/20 1431 Blood Pressure Blood Pressure Findings: Normal blood pressure Discharge Plan Visit Data Chief Complaint: Urinary Symptoms Stated Complaint: LOWER BACK PAIN, POSSIBLE UTI ED Provider: Ronaldo Wilkinson Discharge Problem: Urinary tract infection, Compression fx, thoracic spine, Renal failure, chronic Patient Disposition: Admitted As Inpatient Condition: Good Discharge Instructions Interventions: ED Discharge Assessment Last Done: 08/19/20 17:20
[2020-08-19 14:04] LABS: Appearance Urine Turbid (Clear); Bilirubin Urine Negative (Negative); Blood Urine 2+ (Negative); Color Urine Yellow; Glucose Urine UA Negative (Negative); Ketones Urine Negative (Negative); Leukocyte Esterase Urine 3+ (Negative); Nitrite Urine Negative (Negative); Specific Gravity Urine 1.015 (1.000-1.030); Urobilinogen Urine Negative (Negative); WBC Urine Automated >30 /hpf (0-5)
[2020-08-19 14:22] LABS: Protein Urine 3+ (Negative); Sulfosalicylic Acid Urine Positive (Negative)
[2020-08-19 14:23] LABS: Cast Urine Automated 0 /lpf (0-5)
[2020-08-19 14:24] LABS: Bacteria Urine Automated 1+ (Negative)
--- NOTE | 2020-08-19 14:34 | XRay Report ---
XR chest 1V portable CLINICAL HISTORY: weakness COMPARISON STUDY: 10/07/2019 FINDINGS: The heart is the upper limits of normal in size. There is a right-sided dual-lumen central venous catheter. There is mild elevation of interstitium similar to the prior study. The left heart b order remains obscured, findings similar to the prior studies and likely secondary to a combination o f fat pad and atelectasis/scarring.[ IMPRESSION: 1. Stable interstitial thickening 2. The left lateral heart border is obscured. This finding has been present on prior studies and whil e nonspecific is likely secondary to a combination of fat pad and atelectasis/scarring. ACT 112: Negative or not required by law. Electronically signed by: Cristóbal Davis M.D. 08/19/2020 2:33 PM
[2020-08-19 14:45] LABS: Basophils # (auto) 0.03 K/uL (0-0.2); Basophils % (auto) 0.4 %; Eosinophils # (auto) 0.25 K/uL (0-0.5); Eosinophils % (auto) 3.3 %; Hematocrit (blood only) 32.9 % (37-47); Hemoglobin 10.5 g/dL (12.0-16.0); Immature Granulocytes # (auto) 0.02 K/uL (0.00-0.02); Immature Granulocytes % (auto) 0.3 %; Lymphocytes # (auto) 2.23 K/uL (1.2-3.4); Lymphocytes % (auto) 29.7 %; Mean Corpuscular Hemoglobin 34.2 pg (25-34); Mean Corpuscular Hgb Conc 31.9 g/dL (32-36); Mean Corpuscular Volume 107.2 fL (80-100); Mean Platelet Volume 9.6 fL (7.4-10.4); Neutrophils # (auto) 3.79 K/uL (1.4-6.5); Neutrophils % (auto) 50.3 %; Platelet Count 400 K/uL (130-400); RDW Coefficient of Variation 15.4 % (11.5-14.5); RDW Standard Deviation 59.9 fL (36.4-46.3); Red Blood Count 3.07 M/uL (4.2-5.4); White Blood Count 7.52 K/uL (4.8-10.8)
[2020-08-19] MEDS ORDERED: ERTAPENEM SODIUM 500 MG in SODIUM CHLORIDE 0.9% 50 ML IV ONE (14:59)
[2020-08-19 15:02] LABS: INR 4.1 (0.9-1.1); Partial Thromboplastin Ratio 1.9; Prothrombin Time 40.4 Seconds (9.0-12.0)
[2020-08-19 15:03] LABS: Partial Thromboplastin Time 52.1 Seconds (21.0-31.0)
[2020-08-19 15:14] LABS: Albumin Globulin Ratio 0.6 (0.9-2); Albumin Level 2.7 gm/dl (3.4-5.0); BUN Creatinine Ratio 6.2 (10-20); Bilirubin,Total 0.5 mg/dl (0.2-1); Calcium 9.2 mg/dl (8.5-10.1); Creatinine Clr Calc Pharmacy 6.6 ml/min; Est GFR (Non-African American) 5.2; Globulin 4.2 gm/dl (2.5-4.0); Magnesium 2.1 mg/dl (1.8-2.4); Potassium 4.9 mmol/L (3.5-5.1); Thyroid Stimulating Hormone 2.64 uIu/ml (0.300-4.500); Total Protein 6.9 gm/dl (6.4-8.2); Troponin I 0.019 ng/ml (0-0.045)
--- NOTE | 2020-08-19 15:42 | History & Physical Report ---
Date of Service August 19, 2020 Assessment & Plan (1) UTI (urinary tract infection): abnormal UA, foul smelling discharge and history of ESBL Ecoli in 10/17, will use ertapenem renal dosed based on previous sensitivities (2) Acute lumbar back pain: her pain is atypical as is not in typical location of T12, this could be an upper urinary infection but with supratherapeutic INr concern for other issues will prompt a CT abd/pelvis. 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: Patient be on basal bolus insulin with her typical home dose of long- acting, patient be continued on gabapentin for neuropathy (4) AF (paroxysmal atrial fibrillation): Patient's INR is supratherapeutic her Coumadin will be held she is rate controlled with metoprolol at this time we will check daily INRs (5) Hypertension: For her hypertension she continues on amlodipine and metoprolol as well as Lasix 20 twice daily (6) T12 compression fracture: (7) Hypothyroidism: Synthroid is continued for her hypothyroidism (8) Depression: She maintained on Zoloft therapy History of Present Illness Positional Primary Care Provider: Mauri Hinojosa MD 89-year-old female who has a history of dialysis who presented to the emergency department for generalized weakness. The patient has been experiencing very severe back pain. She was seen in our facility recently for this back pain and had a work-up which included radiographic studies showing a T12 compression fracture. She does say her back pain is moderate to severe at times worse with position improved with rest. Ever since that time she is been having severe pain and difficulty ambulating. Her caregiver did present to the emergency department with her and states that she is having very severe back pain but also notes that she has been having cloudy urine and decreased urine output. Patient's caregiver states she has had a purulent urethral discharge swelling her undergarments and making the toilet cloudy which is unusual for her this was very foul-smelling The pt was seen by her section maintainer today and although c/o palpitations no intervention was recommended. The patient denies having any chest pain at this time. She denies having any abdominal pain. Allergies Allergy/AdvReac Type Severity Reaction Status Date / Time No Known Allergies Allergy Verified 08/19/20 15:08 Home Medications Home Medications Medication Instructions Recorded Confirmed Type PreserVision AREDS 1 cap PO BID 12/17/18 08/19/20 History Biofreeze (menthol) 1 applic TOPICAL BID 04/14/20 08/19/20 History bisacodyl [Dulcolax (bisacodyl)] 10 mg [place] UD PRN 04/14/20 08/19/20 History calcium carbonate 500 mg PO TIDM 04/14/20 08/19/20 History docusate sodium [Colace] 100 mg PO DAILY 04/14/20 08/19/20 History acetaminophen 325 mg tablet 650 mg PO BID PRN tab 05/27/20 08/19/20 History amlodipine 10 mg tablet 10 mg PO DAILY 90 Days #90 tab 05/28/20 08/19/20 Rx atorvastatin 10 mg tablet 10 mg PO HS #90 tab 05/28/20 08/19/20 Rx furosemide 20 mg tablet 20 mg PO BID 30 Days #60 tab 05/28/20 08/19/20 Rx hydralazine 100 mg tablet 100 mg PO BID #60 tab 05/28/20 08/19/20 Rx levothyroxine 112 mcg tablet 112 mcg PO QAM #30 tab 05/28/20 08/19/20 Rx metoprolol tartrate 25 mg tablet 25 mg PO BID #46 tab 05/28/20 08/19/20 Rx sertraline 25 mg tablet 25 mg PO DAILY #30 tab 05/28/20 08/19/20 Rx BD Ultra-Fine Belgica Pen Needle 32 #400 ea NS 05/29/20 08/14/20 Rx gauge x 5/32" Lantus Solostar U-100 Insulin 100 See Rx Instructions SUBCUT DAILY 05/29/20 08/19/20 Rx unit/mL (3 mL) subcutaneous pen 90 Days #30 ml NS OneTouch Delica Plus Lancet 33 #400 ea NS 05/29/20 08/14/20 Rx gauge OneTouch Verio test strips #400 ea NS 05/29/20 08/14/20 Rx flash glucose scanning reader #1 ea 06/03/20 08/14/20 Rx flash glucose sensor #1 ea 06/03/20 08/14/20 Rx vitamin B complex and vitamin C 1 cap PO QAM 30 Days #90 cap 07/23/20 08/19/20 Rx no.20-folic acid 1 mg capsule lidocaine 4 % topical patch 1 patch TOPICAL DAILY #10 ea 08/14/20 08/19/20 Rx oxycodone 5 mg PO Q4H PRN #15 tab 08/15/20 08/19/20 Rx gabapentin 100 mg capsule 100 mg PO DAILY cap 08/19/20 08/19/20 History gabapentin 300 mg capsule 300 mg PO QPM cap 08/19/20 08/19/20 History insulin aspart U-100 [Novolog 40 units SQ TIDM 08/19/20 08/19/20 History Flexpen U-100 Insulin] lidocaine HCl [Aspercreme 1 ea TOPICAL DIRECTED PRN 08/19/20 08/19/20 History (lidocaine HCl)] warfarin 4 mg PO PM 08/19/20 08/19/20 History Past Med/Surg History Medical History (Updated 08/19/20 @ 17:07 by Jorje Stephens MD) Arthritis Basosquamous carcinoma of skin Chronic lower back pain Closed fracture of shaft of humerus (04/09/11) hx right arm Congestive heart failure Depression Diabetic nephropathy ESRD (end stage renal disease) on dialysis [facility] Tues/Thurs/Sat Hematuria hx Hyperlipidemia Hypertension Hypothyroidism Paroxysmal atrial fibrillation Pericardial effusion hx Type 2 diabetes mellitus Urinary tract infection hx Surgical History History of cataract surgery bilateral History of cholecystectomy S/P dialysis catheter insertion S/P dilation and curettage Family History Mother Diabetes Hypertension Macular degeneration Hypothyroidism Denies family history of Ovarian cancer Myocardial infarction Breast cancer Colorectal cancer Social History Smoking Status: Never smoker Second Hand Exposure: No; Hx Alcohol Use: No Hx Substance Use: No Preferred Language: Amharic Communication Ability: Effective Visual Impairment: No Limitations 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 Beliefs That Will Affect Care: None marital status: Current Living Situation: Longterm Current Living Situation Comment: [facility] current occupational status: retired How many Children do You have: 3 Feels Safe at Home: Yes Childhood Exposure to Second-Hand Smoke: No Physical Activity Frequency: Does not Exercise Seatbelt Use: always Assistive Devices: Walker Review of Systems Review of Systems: Mild distress and fatigue no headache, blurry or double vision no speech or swallowing issues no chest pain, pressure or palpitations no shortness of breath, cough or wheezes Right-sided abdominal pain, nausea or vomiting, diarrhea or constipation dysuria, foul smell and discharge focal back pain in right lower back lower than t12 known issue right sided low back pain, R CVA tenderness or radicular pain no bruising, bleeding or rashes no focal signs of weakness or numbness or altered sensation no complaints of anxiety or depression. Physical Exam Physical Exam: The patient appeared well nourished and normally developed. Vital signs as documented. Head exam is normocephalic atraumatic no scleral icterus Neck is without JVD, thyromegaly, or carotid bruits. Lungs are clear to auscultation, no focal loss of breath sounds Cardiac exam, Rhythm is regular.. No murmurs, rubs or gallops. Abdominal exam reveals normal bowel sounds, soft right sided abdominal tenderness Extremities are moderately edematous and both pedal pulses are present Neurologic exam is alert and oriented, no focal loss of strength or sensation Skin is without bruises or rashes Psychologically is without concerns for anxiety or depression. Results & Data Results & Data ([facility]) Vital Signs (Past 12 Hours) Vital Signs Temp Pulse Resp BP Pulse Ox 08/19/20 14:30 60 18 117/49 L 98 08/19/20 14:00 58 L 16 103/55 L 96 08/19/20 13:36 95 08/19/20 13:33 58 L 20 113/57 L 97 08/19/20 11:42 99.1 F 59 L 18 103/53 L 94 CXR shows dialysis cath in place and mild congestive changes PG Care Time/CCT Total # of Minutes Spent Total Time Spent with Patient: Total time spent is greater than 50% in coordination of care (as documented) at patient's floor/unit and/or counseling patient: Coding Level of Care Code 67152 Initial Inpt Care Lvl 3 Diagnoses UTI (urinary tract infection) N39.0 Acute lumbar back pain M54.5 Diabetes mellitus with chronic kidney disease E11.22 AF (paroxysmal atrial fibrillation) I48.0 Hypertension I10 T12 compression fracture S22.080A Hypothyroidism E03.9 Depression F32.9
--- NOTE | 2020-08-19 16:43 | Electrocardiogram Report ---
Test Reason : Blood Pressure : / mmHG Vent. 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 lead placement vs. LVH Nonspecific T wave abnormality Lateral leads Abnormal ECG When compared with ECG of 29-APR-2020 06:19, ME interval has decreased Nonspecific T wave abnormality, improved in Lateral leads Confirmed by Jose R Cuevas ([id number]) on 08/19/2020 4:43:17 PM Referred By: REFERRED SELF Confirmed By:Jose R Cuevas
[2020-08-19] MEDS ORDERED: MoRPHine SULFATE 2 MG/ML CARP IV PRN (18:07)
[2020-08-19] MEDS ORDERED: POLYETHYLENE (MIRALAX) 17 GM PACK PO PRN (18:07)
[2020-08-19] MEDS ORDERED: LIDOCAINE HCL topical PRN (18:07)
[2020-08-19] MEDS ORDERED: ACETAMINOPHEN 325 MG TAB PO PRN (18:07)
[2020-08-19] MEDS ORDERED: GLUCOSE 10 TABS/TUBE PO PRN (18:07)
[2020-08-19] MEDS ORDERED: MoRPHine SULFATE 4 MG/ML 1 ML CARP\\VIAL IV PRN (18:07)
[2020-08-19] MEDS ORDERED: bisacodyL 10 MG SUPP PR PRN (18:07)
[2020-08-19] MEDS ORDERED: CARBOHYDRATES FOR HYPOGLYCEMIA PO PRN (18:07)
[2020-08-19] MEDS ORDERED: DEXTROSE 50% 50 ML SYRINGE IV PRN (18:07)
[2020-08-19] MEDS ORDERED: INSULIN ASPART 100 UNITS/ML 3 ML PEN SQ SCH (18:07)
[2020-08-19] MEDS ORDERED: GLUCAGON FOR INJ 1 MG VIAL SQ PRN (18:07)
[2020-08-19] MEDS ORDERED: GLUCOSE 40% GEL 15 GM TUBE PO PRN (18:07)
[2020-08-19] MEDS ORDERED: OPTIRAY 320 125ml IV ONE (18:15)
[2020-08-19] MEDS ORDERED: PHARMACY GLYCEMIC MGMT CONSULT PRN (18:45)
--- NOTE | 2020-08-19 20:15 | CT Scan Report ---
CT SCAN OF THE ABDOMEN AND PELVIS WITHOUT IV CONTRAST; CT SCAN OF THE LUMBAR SPINE WITHOUT IV CONTRAS T CLINICAL HISTORY: Generalized abdominal pain. Low back pain. COMPARISON STUDY: Abdominal CT dated 12/17/2018. Lumbar spine radiographs dated 08/15/2020 and 020. TECHNIQUE: CT scan of the abdomen and pelvis is performed from the lung bases to the proximal femora. Additionally, CT scan of the lumbar spine is performed from the lower thoracic spine to the sacrum. Images for both examinations are reviewed in the axial, sagittal, and coronal planes. IV contrast was not administered for this examination. Oral contrast was utilized. A dose lowering technique was uti lized adhering to the principles of ALARA. There is streak artifact from the arms which could not be elevated above the abdomen. CT DOSE: 1313.70 mGy.cm FINDINGS: Lung bases: The heart is enlarged and without pericardial effusion. The coronary arteries are densely calcified. There are trace pleural effusions with bibasilar scarring/atelectasis. No airspace consol idation is seen typical for pneumonia. There is a small to moderate hiatal hernia. Liver: The unenhanced liver is normal in size and heterogeneous in attenuation. Nodularity of the hep atic surface contour suggests early change of cirrhosis. There is no intrahepatic biliary ductal dila tation. Gallbladder: Surgically absent noting clips in the gallbladder fossa. Spleen: Normal in size and attenuation. 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 Pancreas: The unenhanced pancreas is atrophic and grossly unremarkable. Adrenal glands: Unremarkable. Kidneys: The unenhanced kidneys are atrophic and without hydronephrosis. There are no renal calculi i dentified. There is no evidence of contour deforming renal mass lesion. Abdominal vasculature: There is advanced atherosclerotic calcification and mild ectasia of the abdomi nal aorta. Bowel: There is no bowel obstruction. Enteric contrast reaches the rectum. There is mild colonic dive rticulosis without CT evidence of acute diverticulitis. The appendix is well-visualized and normal. Peritoneum/retroperitoneum: There is no intraperitoneal free air or abdominal ascites. A fat-containi ng supraumbilical hernia seen on image #212. No retroperitoneal hemorrhage is identified. Subcutaneou s soft tissue calcifications are present in the ventral abdominal wall and likely related to previous injections. Lymphadenopathy: None. Pelvic viscera: There is circumferential bladder wall thickening and mild pericystic inflammation. Th e uterus and adnexa are normal as imaged. Skeletal structures: The skeletal structures are osteopenic. There is an acute to subacute compressio n fracture of T12 with moderate loss of height. No retropulsed fragments are identified. See below fo r dedicated assessment of the lumbar spine. A hemangioma is noted in the body of L4. No lytic or sabi tic lesions are seen. The bony pelvis and proximal femora are intact. Sclerotic change is noted in th e sacroiliac joints. Arthritic change is seen in the hips. LUMBAR SPINE: There is an acute superior endplate compression fracture of L2 with minimal loss of hei ght. No retropulsed fragments are identified. Vertebral body height is otherwise maintained throughou t the lumbar spine. Alignment is preserved. The transverse and spinous processes are intact. Anterior and lateral marginal osteophytes are seen throughout. There is no evidence of spondylolysis. Facet a rthropathy is seen in the lower lumbar spine. Bilateral neural foraminal stenosis is suggested at L4- L5 and L5-S1. There is mild multilevel degenerative disc space narrowing seen throughout the lumbar s pine. Vacuum phenomenon is noted at L5-S1. There is no CT evidence of large disc herniation or high-g rade central canal stenosis. Small posterior disc osteophyte complexes are seen at L3-L4, L4-L5, and L5-S1. There is paravertebral edema at T12 and L2. There is fatty atrophy of the paraspinous musculat ure. IMPRESSION: 1. Findings suggest cystitis. Correlation with clinical findings and urinalysis will be required. 2. There is an acute superior endplate compression fracture of L2 with minimal loss of height. 3. There is an acute to subacute superior endplate compression fracture of T12. Loss of height has mo destly increased from older prior examinations. 4. No retropulsed fragments are identified. 5. Paravertebral soft tissue edema is present at the T12 and L2 fracture levels. 6. Cardiomegaly and trace pleural effusions. 7. Nodularity of the hepatic surface contour suggests early change of cirrhosis. 8. Additional findings as above. ACT 112: Negative or not required by law. Electronically signed by: Capo Goff M.D. 08/19/2020 8:14 PM
[2020-08-19] MEDS: INSULIN GLARGINE SOLOSTAR 100 UNITS/ML 3 ML PEN SQ SCH (20:30)
[2020-08-19] MEDS: INSULIN ASPART 100 UNITS/ML 3 ML PEN SC SCH ×2 (20:31→21:12)
[2020-08-19] MEDS: ATORVASTATIN 10 MG TAB PO SCH (20:34)
[2020-08-19] MEDS: hydrALAZINE TAB 50 MG TAB PO SCH (20:34)
[2020-08-19] MEDS: FUROSEMIDE 20 MG TAB PO SCH (20:35)
[2020-08-19] MEDS: GABAPENTIN 300 MG CAP PO SCH (20:35)
[2020-08-19] MEDS: METOPROLOL TARTRATE 25 MG TAB PO SCH (20:36)
[2020-08-19] MEDS: oxyCODONE HCL IR 5 MG TAB (IMMEDIATE RELEASE) PO PRN (20:37)
[2020-08-19] MEDS ORDERED: NON-FORMULARY MEDICATION (Menthol [Biofreeze (Menthol)] 1 APPLN) TOP SCH (21:00)
[2020-08-20] MEDS: LEVOTHYROXINE SODIUM 112 MCG TABLET PO SCH (05:35)
[2020-08-20 06:54] LABS: INR 4.9 (0.9-1.1); Prothrombin Time 47.6 Seconds (9.0-12.0)
[2020-08-20 07:12] LABS: BUN Creatinine Ratio 6.3 (10-20); Calcium 8.6 mg/dl (8.5-10.1); Creatinine Clr Calc Pharmacy 5.8 ml/min; Est GFR (African American) 5.2; Est GFR (Non-African American) 4.5; Potassium 4.8 mmol/L (3.5-5.1)
[2020-08-20] MEDS: SERTRALINE HCL 50 MG TABLET PO SCH (08:03)
[2020-08-20] MEDS: FUROSEMIDE 20 MG TAB PO SCH ×3 (08:03→20:29)
[2020-08-20] MEDS: METOPROLOL TARTRATE 25 MG TAB PO SCH ×3 (08:03→20:29)
[2020-08-20] MEDS: CALCIUM CARBONATE 1250MG TAB PO SCH ×3 (08:04→16:27)
[2020-08-20] MEDS: GABAPENTIN 100 MG CAP PO SCH (08:04)
[2020-08-20] MEDS: CEROVITE ADV FORMULA TAB PO SCH (08:04)
[2020-08-20] MEDS: amLODIPine BESYLATE 5 MG TAB PO SCH (08:05)
[2020-08-20] MEDS: hydrALAZINE TAB 50 MG TAB PO SCH ×3 (08:06→20:29)
[2020-08-20] MEDS: DOCUSATE SODIUM 100 MG CAP PO SCH (08:07)
[2020-08-20] MEDS: NEPHROCAPS PO SCH (08:07)
[2020-08-20 08:17] LABS: Estimated Average Glucose 151 mg/dl; Hemoglobin A1C 6.9 % (4.5-5.6)
[2020-08-20] MEDS ORDERED: LIDOCAINE 4% CREAM 15 GM TUBE EXT PRN (09:00)
[2020-08-20] MEDS ORDERED: SODIUM CHLORIDE 0.9% 1000ML 1,000 ML IV PRN (09:11)
[2020-08-20] MEDS ORDERED: HEPARIN SOD (PORCINE) 1000 UNIT/ML 10 ML VIAL IV ONE (09:11)
[2020-08-20] MEDS ORDERED: HEPARIN SOD (PORCINE) 1000 UNIT/ML 10 ML VIAL IV SCH (09:15)
[2020-08-20] MEDS ORDERED: EPOETIN ALFA 4,000 UNIT/ML VIAL IV ONE (09:30)
[2020-08-20] MEDS: INSULIN ASPART 100 UNITS/ML 3 ML PEN SC SCH ×4 (09:33→20:17)
--- NOTE | 2020-08-20 12:33 | Nephrology Consultation ---
Date of Consultation August 20, 2020 Assessment & Plan (1) ESRD (end stage renal disease) on dialysis: * Will provide HD today according to outpatient orders * Outpatient HD at [facility] TTS 4hr 2K 2Ca F-180NR EDW 90 kg * Continue nephrocaps, renal/diabetic diet (2) UTI (urinary tract infection): * h/o ESBL UTI * Urine culture reveals gram negative bacilli. Await identification and sensitivity testing * On IV ertapenem. ESRD dose: 500mg daily. Give additional 125 mg IV following HD if dialysis is performed within 6 hours of daily administered dose (3) T12 compression fracture: * Recommend ortho/spine evaluation to determine whether brace or other measure will help stabilize fracture and alleviate pain (4) AF (paroxysmal atrial fibrillation): * On Metoprolol for rate control * Recommend checking INR as patient is on warfarin therapy (5) Anemia: * Will provide DANNA w/ HD History of Present Illness Reason for Consultation: ESRD on HD Attending Physician: Kelly Whittington MD History of Present Illness Mrs. Pearce is an 89 year old white female who is seen at the request of Dr. Stephens to provide inpatient HD and assist w/ medical management. Medical records in the EMR were reviewed today and are summarized as follows: Mrs. Pearce has ESRD due to diabetic nephropathy and hypertensive nephrosclerosis. She dialyzes TTS at [facility] (4hr 2K 2Ca F-180NR EDW 90 kg, R IJ THC, AVF created 05/[address] Dariana hodge). Her medical history is also significant for recurrent UTI, atrial fibrillation (warfarin), hypothyroidism, AODM and iron deficiency anemia. Mrs. Pearce was recently diagnosed w/ T12 compression fracture. She presented to the ED 08/19 for evaluation of back pain, weakness and difficulty ambulating. Evaluation revealed a UTI. Admission was advised for antibiotic and physical therapy. Allergies Allergy/AdvReac Type Severity Reaction Status Date / Time No Known Allergies Allergy Verified 08/19/20 15:08 Home Medications Home Medications Medication Instructions Recorded Confirmed Type PreserVision AREDS 1 cap PO BID 12/17/18 08/19/20 History Biofreeze (menthol) 1 applic TOPICAL BID 04/14/20 08/19/20 History bisacodyl [Dulcolax (bisacodyl)] 10 mg [place] UD PRN 04/14/20 08/19/20 History calcium carbonate 500 mg PO TIDM 04/14/20 08/19/20 History docusate sodium [Colace] 100 mg PO DAILY 04/14/20 08/19/20 History acetaminophen 325 mg tablet 650 mg PO BID PRN tab 05/27/20 08/19/20 History amlodipine 10 mg tablet 10 mg PO DAILY 90 Days #90 tab 05/28/20 08/19/20 Rx atorvastatin 10 mg tablet 10 mg PO HS #90 tab 05/28/20 08/19/20 Rx furosemide 20 mg tablet 20 mg PO BID 30 Days #60 tab 05/28/20 08/19/20 Rx hydralazine 100 mg tablet 100 mg PO BID #60 tab 05/28/20 08/19/20 Rx levothyroxine 112 mcg tablet 112 mcg PO QAM #30 tab 05/28/20 08/19/20 Rx metoprolol tartrate 25 mg tablet 25 mg PO BID #46 tab 05/28/20 08/19/20 Rx sertraline 25 mg tablet 25 mg PO DAILY #30 tab 05/28/20 08/19/20 Rx BD Ultra-Fine Belgica Pen Needle 32 #400 ea NS 05/29/20 08/14/20 Rx gauge x 5/32" Lantus Solostar U-100 Insulin 100 See Rx Instructions SUBCUT DAILY 05/29/20 08/19/20 Rx unit/mL (3 mL) subcutaneous pen 90 Days #30 ml NS OneTouch Delica Plus Lancet 33 #400 ea NS 05/29/20 08/14/20 Rx gauge OneTouch Verio test strips #400 ea NS 05/29/20 08/14/20 Rx flash glucose scanning reader #1 ea 06/03/20 08/14/20 Rx flash glucose sensor #1 ea 06/03/20 08/14/20 Rx vitamin B complex and vitamin C 1 cap PO QAM 30 Days #90 cap 07/23/20 08/19/20 Rx no.20-folic acid 1 mg capsule lidocaine 4 % topical patch 1 patch TOPICAL DAILY #10 ea 08/14/20 08/19/20 Rx oxycodone 5 mg PO Q4H PRN #15 tab 08/15/20 08/19/20 Rx gabapentin 100 mg capsule 100 mg PO DAILY cap 08/19/20 08/19/20 History gabapentin 300 mg capsule 300 mg PO QPM cap 08/19/20 08/19/20 History insulin aspart U-100 [Novolog 40 units SQ TIDM 08/19/20 08/19/20 History Flexpen U-100 Insulin] lidocaine HCl [Aspercreme 1 ea TOPICAL DIRECTED PRN 08/19/20 08/19/20 History (lidocaine HCl)] warfarin 4 mg PO PM 08/19/20 08/19/20 History Patient History Medical History Arthritis Basosquamous carcinoma of skin Chronic lower back pain Closed fracture of shaft of humerus (04/09/11) hx right arm Congestive heart failure Depression Diabetic nephropathy ESRD (end stage renal disease) on dialysis [facility] Tues/Thurs/Sat Hematuria hx Hyperlipidemia Hypertension Hypothyroidism Paroxysmal atrial fibrillation Pericardial effusion hx Type 2 diabetes mellitus Urinary tract infection hx Surgical History History of cataract surgery bilateral History of cholecystectomy S/P dialysis catheter insertion S/P dilation and curettage Family History Mother Diabetes Hypertension Macular degeneration Hypothyroidism Denies family history of Ovarian cancer Myocardial infarction Breast cancer Colorectal cancer Social History Smoking Status: Never smoker Second Hand Exposure: No; Hx Alcohol Use: No Hx Substance Use: No Preferred Language: Setswana Communication Ability: Effective Visual Impairment: No Limitations 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 Beliefs That Will Affect Care: None marital status: Current Living Situation: Spouse [facility]uation [facility] current occupational status: retired How many Children do You have: 1 Other Information That Helps Us Care for You: No Feels Safe at Home: Yes Safety Concerns: Feels Safe At This Time Childhood Exposure to Second-Hand Smoke: No Physical Activity Frequency: Does not Exercise Seatbelt Use: always Assistive Devices: Walker and Wheelchair Review of Systems Constitutional: + weakness; no fever Eyes: no problem reported Ear, Nose, Mouth, Throat: no problem reported Respiratory: no dyspnea Cardiovascular: no chest pain and no edema Gastrointestinal: no abdominal pain, no vomiting and no diarrhea/loose stools Genitourinary: no hematuria Musculoskeletal: + back pain Neurologic: no confusion Physical Exam Constitutional: not in distress Eyes: PERRL, conjunctivae normal, anicteric sclerae ENMT: external ear and nose normal, oropharynx normal Neck: trachea midline, no thyromegaly Respiratory: normal respiratory effort, lungs clear to auscultation Cardiovascular: Rate/Rhythm: + irregularly irregular Extremities: + AV fistula (+ bruit) Gastrointestinal (Abdomen): normal bowel sounds, soft, nontender, no hepatosplenomegaly Musculoskeletal: Extremities: no cyanosis Skin: no rashes, warm and dry Neurologic: awake; not confused Results & Data ([facility]) Vital Signs (Past 12 Hours) Vital Signs Temp Pulse Resp BP Pulse Ox 08/20/20 07:21 36.7 C 60 18 109/62 97 Laboratory Results Laboratory Tests 08/19/20 08/19/20 08/20/20 13:30 14:22 06:02 WBC 7.52 Hgb 10.5 L Hct 32.9 L Plt Count 400 Sodium 136 Potassium 4.8 Chloride 97 L Carbon Dioxide 30 BUN 47 H Creatinine 7.40 H* D Glucose 68 L Urine Color Yellow Urine Appearance Turbid A Urine pH 8.0 H Ur Specific [place] 1.015 Urine Protein 3+ H Urine Glucose (UA) Negative Urine Ketones Negative Urine Blood 2+ H Urine Nitrite Negative Urine WBC (Auto) >30 H Urine RBC (Auto) 10-30 H Urine Bacteria (Auto) 1+ H PG Care Time/CCT Total # of Minutes Spent Total Time Spent with Patient: Total time spent is greater than 50% in coordination of care (as documented) at patient's floor/unit and/or counseling patient: Coding Level of Care Code 80986 Inpt Consult Level 5 Diagnoses ESRD (end stage renal disease) on dialysis N18.6; Z99.2 UTI (urinary tract infection) N39.0 T12 compression fracture S22.080A AF (paroxysmal atrial fibrillation) I48.0 Anemia D64.9
--- NOTE | 2020-08-20 14:11 | Pharmacy Report ---
Glycemic Control Consultation - Date of Service August 20, 2020 - Scope Scope: Glycemic Pharmacist consulted for glycemic control and to write orders per [facility] inpatient glycemic control protocol. - Objective Weight: 91.1 kg Accuchecks BSG (last 24hrs): 08/19/20 08/19/20 08/19/20 14:22 18:31 20:17 Glucose 78 POC Glucose 110 H 152 H 08/20/20 08/20/20 08/20/20 06:02 09:32 11:35 Glucose 68 L POC Glucose 122 H 104 H Laboratory Data (last 24hrs): 08/19/20 08/20/20 14:22 06:02 Potassium 4.9 4.8 Carbon Dioxide 29 30 Anion Gap 8.0 9.0 Creatinine 6.57 H* 7.40 H* D Est Cr Clr Drug Dosing 6.6 5.8 HbA1c: Hemoglobin A1c 6.9 % (4.5-5.6) H 08/20/20 06:02 - Recent Pertinent Medications Outpatient Anti-diabetic Regimen: * Lantus 20 units HS * A1c = 6.9 % on 08/20/20 * Novolog 7 units TID with meals The patient WAS receiving: * Basal insulin: Lantus HS based on a scale- received 10 units yesterday * Correctional Insulin: Novolog Correction per scale ACHS Goal Range: Low 110 mg/dL - High 140 mg/dL Correction Factor: 30 mg/dL/unit * Prandial insulin: Per carb ratio of 1 unit per 10 grams CHO consumed Risk Factors for Insulin Resistance: * Steroids: none * Infection: Invanz * IVF: none * Diet: Renal diet - Assessment & Plan Assessment & Plan: ASSESSMENT: * 89 y/o F admitted for UTI. ESRD on HD TTS. * Yesterday, BSGs were low and a low dose of Lantus based on wt and stress factor of 1 was given last night. * Novolog parameters were started using wt and low to med stress (between 1 and 2). * Will continue with these orders today as well. PLAN FOR INPATIENT GLYCEMIC CONTROL: * Basal insulin: continue * Lantus 0-15 units SQ HS based on BSG scale. * Bolus insulin: continue * NovoLog per scale ACHS or Q6hrs while NPO * Goal Range: Low 110 mg/dL - High 140 mg/dL * Correction Factor: 30 mg/dL/unit * Nutritional / Prandial insulin per carb ratio of 1 unit per 10 grams CHO consumed * Please note that the plan above was derived based on current level of insulin resistance and hospital stress. These recommendations are appropriate for inpatient admission only. Plan of care upon discharge will need to be reassessed to avoid potential outpatient hypo/hyperglycemia. Thank you.
[2020-08-20] MEDS: ERTAPENEM SODIUM 500 MG in SODIUM CHLORIDE 0.9% 50 ML IV SCH (16:25)
--- NOTE | 2020-08-20 16:48 | Hospitalist Progress Note ---
Date of Service August 20, 2020 Assessment & Plan (1) UTI (urinary tract infection): * abnormal UA, foul smelling discharge and history of ESBL Ecoli in 10/17 as well as decreased appetite/PO intake * Continue Ertapenem --renal dosed based on previous sensitivities. HD performed * Urine cx with gram negative bacilli on prelim -- follow * Nephrology on consult -- patient underwent HD today, 900cc pulled off * Instructions to give additional 125 mg IV following HD if dialysis is performed within 6 hours of daily administered dose, however patient already had HD this morning and next dose due this afternoon. * Continue to monitor (2) Acute lumbar back pain: * her pain is atypical as is not in typical location of T12, this could be an upper urinary infection but with supratherapeutic INr concern for other issues prompted CTA/P * CTA/P and Lumbar Spine: acute superior endplate compression fracture of L2 with minimal loss of height, and acute to subacute superior endplate compression fracture of T12. Loss of height has modestly increased from older prior examinations. No retropulsed fragments. Paravertebral soft tissue edema at T12 and L2 fracture levels. * Pain control reported to be adequate, although patient extremely painful with any movements * Continue current regimen as ordered -- lidocaine and parenteral opiates * Consulted ortho spine -- appreciate recs. ? 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 A1c 6.9 from previous values 6.5 * Continue to monitor (4) AF (paroxysmal atrial fibrillation): * Patient's INR is supratherapeutic her Coumadin will be held she is rate controlled with metoprolol at this time we will check daily INRs. TSH wnl * INR continues to be elevated, 4.9 from 4.1 but no reported bleeding * Will continue to hold coumadin and follow INR. If s/sx bleeding, will order 2.5mg PO vit K * Had been NSR on monitor and off telemetry last evening --> EKG with sinus howie, nonspecific T wave abnormality lateral leads, poor R wave progression. * Troponin's initially negative but most recent 0.019 -- suspect secondary to demand given above, but will add to am labs to ensure trending down and repeat EKG for comparison now off of telemetry. If changes noted, or positive trop, will need transferred and cardiology consulted (5) Hypertension: * For her hypertension she continues on amlodipine, hydralazine, and metoprolol as well as Lasix 20 twice daily * BPs controlled, lower during dialysis but up to 149/60 this afternoon (6) T12 compression fracture: * See above (7) ESRD (end stage renal disease) on dialysis: * As above, had hemodialysis today * Appreciate nephrology consultation * Continue Nephrocaps (8) Hypothyroidism: * Synthroid is continued for her hypothyroidism (9) Depression: * She maintained on Zoloft therapy (10) Anemia: * Hemoglobin 10.5, macrocytic * Check B12, folate levels in the morning * Check iron levels in the morning-did receive 1 dose of EPO eaten today as per nephrology (11) Hyperlipidemia: * Continue atorvastatin (12) DVT prophylaxis: * Coumadin-on hold for supratherapeutic INR Disposition-continued stay Admission and Anticipated Discharge Date Admission Date: August 19, 2020 Supervising Physician Co-Signing Physician Notes PA Supervision Note: I did not personally see or examine the patient today, but I verified all barton points of GUI [place]'s assessment and plan with the following exceptions/additions: Notations made as above Subjective Doing well. Had dialysis this morning. Some confusion following dialysis, but improved. Has been on HD for past several years but missed previous 2 HD sessions due to illness/back pain/weakness. Back pain controlled with ordered medications but patient extremely painful with any movement. Improved control with lidocaine patches but states relief wears off. Denies any known falls but endorses weakness. No numbness/tingling or radiation. Pain located throughout although mid-back to lower primary. No fever or chills. Denied dysuria or increased frequency but did have cloudy/foul smelling urine from chronic hoffman. Discussed awaiting c/s and continuing Ertapenem given hx ESBL Ecoli UTI. Patient denied hematuria, hematochezia, melena, bleeding gums, epistaxis or other signs of bleeding. Will avoid reversal of coumadin unless signs of bleeding. Patient agreeable to alert nursing staff if she experiences any of these. Will consult orthopedics to see if any intervention appropriate vs brace/pain control. Review of Systems Review of Systems: All systems reviewed & are unremarkable except as noted in HPI & below Physical Exam Constitutional: well developed; not in distress frosting appearance to face Eyes: + anicteric sclerae and PERRL Neck: trachea midline, no thyromegaly Respiratory: normal respiratory effort, lungs clear to auscultation Cardiovascular: Rate/Rhythm: regular rate and regular rhythm Heart Sounds: no murmur Extremities: + AV fistula (+ bruit) Gastrointestinal (Abdomen): Inspection/Auscultation: normal bowel sounds Percussion/Palpation: abdomen nontender Musculoskeletal: Extremities: no cyanosis tender to palpation thoracic and lumbar spine no evidence of trauma grimmacing with any movement 5/5 dorsiflexion/plantar flexion but increased pain 4/5 strength flexion/extension at the hip and knee Skin: no rashes, warm and dry Neurologic: awake; not confused Psychiatric: Orientation: alert, oriented to person and oriented to place; + not oriented to time Genitourinary: hoffman with cloudy urine Lymphatic: no cervical or axillary lymphadenopathy Results & Data Results & Data ([facility]) Vital Signs (Past 12 Hours) Vital Signs Temp Pulse Pulse Pulse Resp BP BP 08/20/20 16:10 36.4 C L 61 18 149/60 H 08/20/20 15:23 36.6 C 62 123/59 L 08/20/20 15:00 55 L 122/58 L 08/20/20 14:40 61 120/53 L 08/20/20 14:20 56 L 115/60 08/20/20 14:00 55 L 108/50 L 08/20/20 13:40 53 L 106/52 L 08/20/20 13:20 54 L 91/50 L 08/20/20 13:00 53 L 102/47 L 08/20/20 12:40 53 L 106/46 L 08/20/20 12:30 36.7 C 08/20/20 12:20 54 L 82/52 L 08/20/20 12:07 55 L 104/52 L 08/20/20 07:21 36.7 C 60 18 109/62 Pulse Ox 08/20/20 16:10 94 08/20/20 15:23 08/20/20 15:00 08/20/20 14:40 08/20/20 14:20 08/20/20 14:00 08/20/20 13:40 08/20/20 13:20 08/20/20 13:00 08/20/20 12:40 08/20/20 12:30 08/20/20 12:20 08/20/20 12:07 08/20/20 07:21 97 PG Care Time/CCT Total # of Minutes Spent Total Time Spent with Patient: Total time spent is greater than 50% in coordination of care (as documented) at patient's floor/unit and/or counseling patient: Coding Level of Care Code 51589 Subseq Hosp Care Lvl 3 Diagnoses UTI (urinary tract infection) N39.0 Acute lumbar back pain M54.5 Diabetes mellitus with chronic kidney disease E11.22 AF (paroxysmal atrial fibrillation) I48.0 Hypertension I10 T12 compression fracture S22.080A ESRD (end stage renal disease) on dialysis N18.6; Z99.2 Hypothyroidism E03.9 Depression F32.9 Anemia D64.9 Hyperlipidemia E78.5 DVT prophylaxis Z29.9
[2020-08-20] MEDS: MICONAZOLE NITRATE POWDER 43 GM EXT PRN (18:05)
[2020-08-20] MEDS: ATORVASTATIN 10 MG TAB PO SCH ×2 (20:16→20:29)
[2020-08-20] MEDS: INSULIN GLARGINE SOLOSTAR 100 UNITS/ML 3 ML PEN SQ SCH (20:17)
[2020-08-21] MEDS: LEVOTHYROXINE SODIUM 112 MCG TABLET PO SCH (06:03)
[2020-08-21 06:12] LABS: Basophils # (auto) 0.04 K/uL (0-0.2); Basophils % (auto) 0.6 %; Eosinophils # (auto) 0.36 K/uL (0-0.5); Eosinophils % (auto) 5.8 %; Hematocrit (blood only) 30.9 % (37-47); Hemoglobin 9.6 g/dL (12.0-16.0); Immature Granulocytes # (auto) 0.05 K/uL (0.00-0.02); Immature Granulocytes % (auto) 0.8 %; Lymphocytes # (auto) 1.73 K/uL (1.2-3.4); Lymphocytes % (auto) 27.7 %; Mean Corpuscular Hemoglobin 33.2 pg (25-34); Mean Corpuscular Hgb Conc 31.1 g/dL (32-36); Mean Corpuscular Volume 106.9 fL (80-100); Monocytes # (auto) 0.89 K/uL (0.11-0.59); Monocytes % (auto) 14.2 %; Neutrophils # (auto) 3.18 K/uL (1.4-6.5); Neutrophils % (auto) 50.9 %; Platelet Count 378 K/uL (130-400); RDW Standard Deviation 58.3 fL (36.4-46.3); Red Blood Count 2.89 M/uL (4.2-5.4); White Blood Count 6.25 K/uL (4.8-10.8)
[2020-08-21 06:21] LABS: INR 3.5 (0.9-1.1); Prothrombin Time 34.2 Seconds (9.0-12.0)
[2020-08-21 06:53] LABS: BUN Creatinine Ratio 5.5 (10-20); Blood Urea Nitrogen 28 mg/dl (7-18); Calcium 8.6 mg/dl (8.5-10.1); Carbon Dioxide 28 mmol/L (21-32); Chloride 106 mmol/L (98-107); Creatinine Clr Calc Pharmacy 8.6 ml/min; Est GFR (African American) 8.2; Est GFR (Non-African American) 7.1; Glucose 80 mg/dl (70-99); Iron 54 mcg/dl (35-150); Potassium 4.8 mmol/L (3.5-5.1); Sodium 139 mmol/L (136-145); Total Iron Binding Capacity 138 mcg/dl (250-450); Transferrin 125 mg/dl (200-360); Transferrin Percent Saturation 31 % (15-50); Troponin I < 0.015 ng/ml (0-0.045)
--- NOTE | 2020-08-21 08:29 | Electrocardiogram Report ---
Test Reason : Blood Pressure : / mmHG Vent. 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
[2020-08-21] MEDS: DOCUSATE SODIUM 100 MG CAP PO SCH (09:08)
[2020-08-21] MEDS: CEROVITE ADV FORMULA TAB PO SCH (09:09)
[2020-08-21] MEDS: CALCIUM CARBONATE 1250MG TAB PO SCH ×3 (09:09→16:50)
[2020-08-21] MEDS: SERTRALINE HCL 50 MG TABLET PO SCH (09:10)
[2020-08-21] MEDS: NEPHROCAPS PO SCH (09:10)
[2020-08-21] MEDS: GABAPENTIN 100 MG CAP PO SCH ×2 (09:10→19:58)
[2020-08-21] MEDS: METOPROLOL TARTRATE 25 MG TAB PO SCH ×2 (09:11→19:58)
[2020-08-21] MEDS: FUROSEMIDE 20 MG TAB PO SCH ×2 (09:11→19:57)
[2020-08-21] MEDS: hydrALAZINE TAB 50 MG TAB PO SCH ×2 (09:11→19:56)
--- NOTE | 2020-08-21 09:39 | Orthopedic Consultation ---
Date of Consultation August 21, 2020 Assessment & Plan (1) T12 compression fracture: The T12 fracture appears to be subacute to chronic. I would not recommend any bracing given the fact that she would need a TLSO going up over the chest which I do not think she would tolerate. I recommend ambulation with physical therapy. Given that the L2 fracture appears to be more recent this is likely causing more of her acute pain. A rigid LSO through the dental assistant may help with the pain to be worn when she is up and walking. She would not need the brace in the chair or in bed. (2) Acute lumbar back pain: The L2 fracture appears to be more acute. An LSO can be worn when she is up and walking. Please contact the dental assistant for an [id number] LSO. There are any other questions or concerns please contact our service. History of Present Illness Attending Physician: Kelly Whittington MD History of Present Illness Patient is an 89-year-old female who had been admitted on 08/19/2020 with a urinary tract infection. She also had acute lower back pain. She was admitted to the medicine service. It was found that she has both the T12 and L2 compression fracture and they wanted our input as to treatment course. Per the patient she is having back pain is not sure if it is due to the fractures or her kidney issues. She is a dialysis patient. She is not having radicular complaints at this point. Her pain is worse with any type of movement. She denies any other numbness, tingling, paresthesias. Allergies Allergy/AdvReac Type Severity Reaction Status Date / Time No Known Allergies Allergy Verified 08/19/20 15:08 Home Medications Home Medications Medication Instructions Recorded Confirmed Type PreserVision AREDS 1 cap PO BID 12/17/18 08/19/20 History Biofreeze (menthol) 1 applic TOPICAL BID 04/14/20 08/19/20 History bisacodyl [Dulcolax (bisacodyl)] 10 mg MA UD PRN 04/14/20 08/19/20 History calcium carbonate 500 mg PO TIDM 04/14/20 08/19/20 History docusate sodium [Colace] 100 mg PO DAILY 04/14/20 08/19/20 History acetaminophen 325 mg tablet 650 mg PO BID PRN tab 05/27/20 08/19/20 History amlodipine 10 mg tablet 10 mg PO DAILY 90 Days #90 tab 05/28/20 08/19/20 Rx atorvastatin 10 mg tablet 10 mg PO HS #90 tab 05/28/20 08/19/20 Rx furosemide 20 mg tablet 20 mg PO BID 30 Days #60 tab 05/28/20 08/19/20 Rx hydralazine 100 mg tablet 100 mg PO BID #60 tab 05/28/20 08/19/20 Rx levothyroxine 112 mcg tablet 112 mcg PO QAM #30 tab 05/28/20 08/19/20 Rx metoprolol tartrate 25 mg tablet 25 mg PO BID #46 tab 05/28/20 08/19/20 Rx sertraline 25 mg tablet 25 mg PO DAILY #30 tab 05/28/20 08/19/20 Rx BD Ultra-Fine Belgica Pen Needle 32 #400 ea NS 05/29/20 08/14/20 Rx gauge x 5/32" Lantus Solostar U-100 Insulin 100 See Rx Instructions SUBCUT DAILY 05/29/20 08/19/20 Rx unit/mL (3 mL) subcutaneous pen 90 Days #30 ml NS OneTouch Delica Plus Lancet 33 #400 ea NS 05/29/20 08/14/20 Rx gauge OneTouch Verio test strips #400 ea NS 05/29/20 08/14/20 Rx flash glucose scanning reader #1 ea 06/03/20 08/14/20 Rx flash glucose sensor #1 ea 06/03/20 08/14/20 Rx vitamin B complex and vitamin C 1 cap PO QAM 30 Days #90 cap 07/23/20 08/19/20 Rx no.20-folic acid 1 mg capsule lidocaine 4 % topical patch 1 patch TOPICAL DAILY #10 ea 08/14/20 08/19/20 Rx oxycodone 5 mg PO Q4H PRN #15 tab 08/15/20 08/19/20 Rx gabapentin 100 mg capsule 100 mg PO DAILY cap 08/19/20 08/19/20 History gabapentin 300 mg capsule 300 mg PO QPM cap 08/19/20 08/19/20 History insulin aspart U-100 [Novolog 40 units SQ TIDM 08/19/20 08/19/20 History Flexpen U-100 Insulin] lidocaine HCl [Aspercreme 1 ea TOPICAL DIRECTED PRN 08/19/20 08/19/20 History (lidocaine HCl)] warfarin 4 mg PO PM 08/19/20 08/19/20 History Patient History Medical History (Updated 08/21/20 @ 00:05 by Kelly Whittington MD) Anemia Arthritis Basosquamous carcinoma of skin Chronic lower back pain Closed fracture of shaft of humerus (04/09/11) hx right arm Congestive heart failure Depression Diabetic nephropathy ESRD (end stage renal disease) on dialysis [facility] Tues/Thurs/Sat Gout Hematuria hx Hyperlipidemia Hypertension Hypothyroidism Paroxysmal atrial fibrillation Pericardial effusion hx Type 2 diabetes mellitus Urinary tract infection hx Surgical History History of cataract surgery bilateral History of cholecystectomy S/P dialysis catheter insertion S/P dilation and curettage Family History Mother Diabetes Hypertension Macular degeneration Hypothyroidism Denies family history of Ovarian cancer Myocardial infarction Breast cancer Colorectal cancer Social History Smoking Status: Never smoker Second Hand Exposure: No; Hx Alcohol Use: No Hx Substance Use: No Preferred Language: Hebrew Communication Ability: Effective Visual Impairment: No Limitations Hearing Ability: Normal Health And Social Care Teacher Required: No Beliefs That Will Affect Care: None marital status: Current Living Situation: Spouse Current Living Situation Comment: [facility] [place] current occupational status: retired How many Children do You have: 1 Other Information That Helps Us Care for You: No Feels Safe at Home: Yes Safety Concerns: Feels Safe At This Time Childhood Exposure to Second-Hand Smoke: No Physical Activity Frequency: Does not Exercise Seatbelt Use: always Assistive Devices: None Physical Exam Physical Exam: On exam the patient is alert. She answers questions very slowly. Her lower extremity motor exam reveals no focal atrophy her strength 5 out of 5 to detailed muscle testing. She has tenderness with logrolling but no tenderness to palpation or percussion. She has full range of motion of her hips. Her skin is dry and intact. She has blunting to sharp and dull distally from the mid tibia down. Results & Data ([facility]) Vital Signs (Past 12 Hours) Vital Signs Temp Pulse Resp BP Pulse Ox 08/21/20 07:31 36.6 C 65 16 110/58 L 92 08/20/20 23:18 37.1 C 60 16 129/63 92 Diagnostic Findings Plain x-rays of the lumbar spine performed on 06/26/2020 reveal a T12 compression fracture of indeterminate age. CT scan of lumbar spine performed recently reveals a T12 fracture which is relatively unchanged compared to the x-rays from 828. There is a new superior endplate depression in L2 that was not visualized on previous films. There are multilevel degenerative changes with facet arthropathy throughout.
[2020-08-21] MEDS: INSULIN ASPART 100 UNITS/ML 3 ML PEN SC SCH ×4 (10:08→20:48)
--- NOTE | 2020-08-21 10:45 | Nephrology Progress Note ---
Date of Service August 21, 2020 Assessment & Plan (1) ESRD (end stage renal disease) on dialysis: * Will provide HD tomorrow according to outpatient orders * Outpatient HD at [facility] TTS 4hr 2K 2Ca F-180NR EDW 90 kg * Continue nephrocaps, renal/diabetic diet (2) UTI (urinary tract infection): * h/o ESBL UTI * Urine culture reveals ESBL gram negative bacilli sensitive to ertapenem * On IV ertapenem. ESRD dose: 500mg daily. Give additional 125 mg IV following HD if dialysis is performed within 6 hours of daily administered dose * Will ask vascular surgery informally if AVF is ready for use (3) T12 compression fracture: * Appreciate orthopedics input - pain mostly from new L2 fracture. They recommend lumbar support orthotic (4) AF (paroxysmal atrial fibrillation): * On Metoprolol for rate control * Recommend checking INR as patient is on warfarin therapy (5) Anemia: * Will provide DANNA w/ HD Admission and Anticipated Discharge Date Admission Date: August 19, 2020 Subjective Mrs. Pearce was seen & examined in her hospital room this morning. She was dialyzed for 2 hours yesterday without complication. She remains weak but voices no other medical concerns. Review of Systems Constitutional: + weakness; no fever Eyes: no problem reported Ear, Nose, Mouth, Throat: no problem reported Respiratory: no dyspnea Cardiovascular: no chest pain and no edema Gastrointestinal: no abdominal pain, no vomiting and no diarrhea/loose stools Genitourinary: no hematuria Musculoskeletal: + back pain Integumentary: no rash Neurologic: no falls and no confusion Physical Exam Constitutional: not in distress Eyes: PERRL, conjunctivae normal, anicteric sclerae ENMT: external ear and nose normal, oropharynx normal Neck: trachea midline, no thyromegaly Respiratory: normal respiratory effort, lungs clear to auscultation Cardiovascular: Rate/Rhythm: + irregularly irregular Extremities: + AV fistula (+ bruit) Gastrointestinal (Abdomen): normal bowel sounds, soft, nontender, no hepatosplenomegaly Musculoskeletal: Extremities: no cyanosis Skin: no rashes, warm and dry Neurologic: awake; not confused Results & Data ([facility]) Vital Signs (Past 12 Hours) Vital Signs Temp Pulse Resp BP Pulse Ox 08/21/20 07:31 36.6 C 65 16 110/58 L 92 08/20/20 23:18 37.1 C 60 16 129/63 92 Laboratory Results Laboratory Tests 08/21/20 08/21/20 05:57 05:57 WBC 6.25 Hgb 9.6 L Hct 30.9 L Plt Count 378 Sodium 139 Potassium 4.8 Chloride 106 Carbon Dioxide 28 BUN 28 H Creatinine 5.04 H* D Glucose 80 PG Care Time/CCT Total # of Minutes Spent Total Time Spent with Patient: Total time spent is greater than 50% in coordination of care (as documented) at patient's floor/unit and/or counseling patient: Coding Level of Care Code 77590 Subseq Hosp Care Lvl 3 Diagnoses ESRD (end stage renal disease) on dialysis N18.6; Z99.2 UTI (urinary tract infection) N39.0 T12 compression fracture S22.080A AF (paroxysmal atrial fibrillation) I48.0 Anemia D64.9
[2020-08-21] MEDS: amLODIPine BESYLATE 5 MG TAB PO SCH (11:26)
[2020-08-21] MEDS: ACETAMINOPHEN 325 MG TAB PO PRN (11:31)
[2020-08-21] MEDS: oxyCODONE HCL IR 5 MG TAB (IMMEDIATE RELEASE) PO PRN (11:31)
--- NOTE | 2020-08-21 17:01 | Hospitalist Progress Note ---
Date of Service August 21, 2020 Assessment & Plan (1) UTI (urinary tract infection): * abnormal UA, foul smelling discharge and history of ESBL Ecoli in 10/17 as well as decreased appetite/PO intake * Continue Ertapenem --renal dosed based on previous sensitivities * Urine --> ESBL E. Coli -- sensitive to Ertapenem (on day 3 of therapy) * Nephrology on consult -- patient underwent HD on 08/20, 900cc pulled off * HD for tomorrow * Instructions to give additional 125 mg IV following HD if dialysis is performed within 6 hours of daily administered dose * PT/OT evals with possible benefit for rehab. CM following. Will also need assistance with abx at d/c given above * Continue to monitor (2) Acute lumbar back pain: * her pain is atypical as is not in typical location of T12, this could be an upper urinary infection but with supratherapeutic INr concern for other issues prompted CTA/P * CTA/P and Lumbar Spine: * acute superior endplate compression fracture of L2 with minimal loss of height , and acute to subacute superior endplate compression fracture of T12. Loss of height has modestly increased from older prior examinations. No retropulsed fragments. Paravertebral soft tissue edema at T12 and L2 fracture levels. * Pain control reported to be adequate, although patient painful with movements * Continue current regimen as ordered -- lidocaine and parenteral opiates * Consulted ortho spine -- appreciate recs. 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 TSH wnl * Had been NSR on monitor and off telemetry last evening --> EKG with sinus howie, nonspecific T wave abnormality lateral leads, poor R wave progression. * Troponin's initially negative but most recent 0.019 but repeat <0.015 -- suspect secondary to demand given above * INR continues to be elevated, 3.5 (4.9 on admit). Did NOT give Vit K * No s/sx active bleeding * Continue to hold coumadin * INR in AM (5) Hypertension: * Stable * BP 131/62 * Continue amlodipine, hydralazine, and metoprolol as well as Lasix 20mg BID (6) T12 compression fracture: * See above (7) ESRD (end stage renal disease) on dialysis: * As above * Appreciate nephrology consultation * Continue Nephrocaps * HD tomorrow * Cr improved to 5.04 (7.40) * BMP in AM (8) Hypothyroidism: * TSH 2.6 on admi * Synthroid 112mcg daily (9) Depression: * Continue zoloft (10) Anemia: * Hemoglobin 9.6, macrocytic with MCV 106.9. Did receive 1 dose of EPO on 08/20 as per nephrology * Iron studies c/w anemia of chronic disease - iron 54, TIBC 138, Transferrin 125, Transferrin % Sat 31 * B12 715, Folate >24.00 * Does have notable heterogenous and nodular liver suggestive of cirrhosis on CT scan-macrocytosis could be from liver disease * ? F/u hematology outpt (11) Hyperlipidemia: * Continue atorvastatin (12) DVT prophylaxis: * Coumadin-on hold for supratherapeutic INR, currently down to 3.5 from 4.9 Disposition-continued stay, HD tomorrow. Will need continued abx for ESBL EColi UTI. CM following as patient may benefit from acute rehab and no beds available. with dementia at home. They do not want to return to [facility], but rather remain in their home and continue with caregivers (private pay) but POA is shared with daughter Brenda (1/3 siblings) and will follow up on monday to see what patient is willing to do. Will see how she progresses with therapy through the weekend while awaiting determination. Admission and Anticipated Discharge Date Admission Date: August 19, 2020 Supervising Physician Co-Signing Physician Notes GUI Supervision Note: I did not personally see or examine the patient today, but I verified all barton points of GUI Espana's assessment and plan with the following exceptions/additions: Notations made as above Subjective Evaluated this morning. Feeling well but still with weakness. Eating/drinking without difficulty. Discussed plans for repeating HD tomorrow and continuing to treat her UTI as well as reviewed culture results. Will have CM assess cost/help with setting up for discharge. Patient worked with therapy but may benefit from rehab. Did have good results with [facility] in the past but her and both home since earlier this year and in poor health but want to remain in their home. Has caregivers throughout the week. Pain to back controlled with ordered medications. To have orthotics provide with brace per rec from orthopedic team. Questions/concerns addressed at this time. Review of Systems Review of Systems: All systems reviewed & are unremarkable except as noted in HPI & below Physical Exam Constitutional: well developed; not in distress Eyes: + anicteric sclerae (blind in L eye, partial R) Neck: normal visual inspection and trachea midline Respiratory: normal respiratory effort, lungs clear to auscultation Cardiovascular: Rate/Rhythm: regular rate and regular rhythm Heart Sounds: no murmur Extremities: + AV fistula (+ bruit) Chest (Breasts): Additional Comments: R sided dialysis catheter Gastrointestinal (Abdomen): Inspection/Auscultation: normal bowel sounds Percussion/Palpation: abdomen nontender Musculoskeletal: Extremities: no cyanosis thoracic spine tender to palpation pain with movement Skin: warm, dry Neurologic: awake; not confused Psychiatric: A+Ox3, euthymic affect Lymphatic: no cervical or axillary lymphadenopathy Results & Data Results & Data ([facility]) Vital Signs (Past 12 Hours) Vital Signs Temp Pulse Resp BP Pulse Ox 08/21/20 15:31 36.6 C 57 L 19 131/62 94 08/21/20 07:31 36.6 C 65 16 110/58 L 92 Laboratory Results 08/21/20 08/21/20 08/21/20 Range/Units 16:51 11:45 07:44 WBC (4.8-10.8) K/uL RBC (4.2-5.4) M/uL Hgb (12.0-16.0) g/dL Hct (37-47) % MCV (80-100) fL MCH (25-34) pg MCHC (32-36) g/dL RDW Std Deviation (36.4-46.3) fL RDW Coeff of Jon (11.5-14.5) % Plt Count (130-400) K/uL MPV (7.4-10.4) fL Immature Gran % (Auto) % Neut % (Auto) % Lymph % (Auto) % Sawyer % (Auto) % Eos % (Auto) % Baso % (Auto) % Neut # (Auto) (1.4-6.5) K/uL Lymph # (Auto) (1.2-3.4) K/uL Sawyer # (Auto) (0.11-0.59) K/uL Eos # (Auto) (0-0.5) K/uL Baso # (Auto) (0-0.2) K/uL Immature Gran # (Auto) (0.00-0.02) K/uL PT (9.0-12.0) Seconds INR (0.9-1.1) Sodium (136-145) mmol/L Potassium (3.5-5.1) mmol/L Chloride (98-107) mmol/L Carbon Dioxide (21-32) mmol/L Anion Gap (3-11) BUN (7-18) mg/dl Creatinine (0.6-1.2) mg/dl Est Cr Clr Drug Dosing ml/min Est GFR ( Amer) Est GFR (Non-Af Amer) BUN/Creatinine Ratio (10-20) Glucose (70-99) mg/dl POC Glucose 194 H 113 H 90 (70-99) mg/dl Calcium (8.5-10.1) mg/dl Iron (35-150) mcg/dl TIBC (250-450) mcg/dl Transferrin (200-360) mg/dl Transferrin % Sat (15-50) % Troponin I (0-0.045) ng/ml Vitamin B12 (211-911) pg/ml 25-OH Vitamin D Total (30-100) ng/ml Folate (>5.38) ng/ml 08/21/20 08/21/20 08/21/20 Range/Units 05:57 05:57 05:57 WBC 6.25 (4.8-10.8) K/uL RBC 2.89 L (4.2-5.4) M/uL Hgb 9.6 L (12.0-16.0) g/dL Hct 30.9 L (37-47) % MCV 106.9 H (80-100) fL MCH 33.2 (25-34) pg MCHC 31.1 L (32-36) g/dL RDW Std Deviation 58.3 H (36.4-46.3) fL RDW Coeff of Jon 15.0 H (11.5-14.5) % Plt Count 378 (130-400) K/uL MPV 9.0 (7.4-10.4) fL Immature Gran % (Auto) 0.8 % Neut % (Auto) 50.9 % Lymph % (Auto) 27.7 % Sawyer % (Auto) 14.2 % Eos % (Auto) 5.8 % Baso % (Auto) 0.6 % Neut # (Auto) 3.18 (1.4-6.5) K/uL Lymph # (Auto) 1.73 (1.2-3.4) K/uL Sawyer # (Auto) 0.89 H (0.11-0.59) K/uL Eos # (Auto) 0.36 (0-0.5) K/uL Baso # (Auto) 0.04 (0-0.2) K/uL Immature Gran # (Auto) 0.05 H (0.00-0.02) K/uL PT 34.2 H (9.0-12.0) Seconds INR 3.5 H (0.9-1.1) Sodium (136-145) mmol/L Potassium (3.5-5.1) mmol/L Chloride (98-107) mmol/L Carbon Dioxide (21-32) mmol/L Anion Gap (3-11) BUN (7-18) mg/dl Creatinine (0.6-1.2) mg/dl Est Cr Clr Drug Dosing ml/min Est GFR ( Amer) Est GFR (Non-Af Amer) BUN/Creatinine Ratio (10-20) Glucose (70-99) mg/dl POC Glucose (70-99) mg/dl Calcium (8.5-10.1) mg/dl Iron (35-150) mcg/dl TIBC (250-450) mcg/dl Transferrin (200-360) mg/dl Transferrin % Sat (15-50) % Troponin I (0-0.045) ng/ml Vitamin B12 715 (211-911) pg/ml 25-OH Vitamin D Total (30-100) ng/ml Folate (>5.38) ng/ml 08/21/20 08/21/20 08/21/20 Range/Units 05:57 05:57 05:57 WBC (4.8-10.8) K/uL RBC (4.2-5.4) M/uL Hgb (12.0-16.0) g/dL Hct (37-47) % MCV (80-100) fL MCH (25-34) pg MCHC (32-36) g/dL RDW Std Deviation (36.4-46.3) fL RDW Coeff of Jon (11.5-14.5) % Plt Count (130-400) K/uL MPV (7.4-10.4) fL Immature Gran % (Auto) % Neut % (Auto) % Lymph % (Auto) % Sawyer % (Auto) % Eos % (Auto) % Baso % (Auto) % Neut # (Auto) (1.4-6.5) K/uL Lymph # (Auto) (1.2-3.4) K/uL Sawyer # (Auto) (0.11-0.59) K/uL Eos # (Auto) (0-0.5) K/uL Baso # (Auto) (0-0.2) K/uL Immature Gran # (Auto) (0.00-0.02) K/uL PT (9.0-12.0) Seconds INR (0.9-1.1) Sodium 139 (136-145) mmol/L Potassium 4.8 (3.5-5.1) mmol/L Chloride 106 (98-107) mmol/L Carbon Dioxide 28 (21-32) mmol/L Anion Gap 5.0 (3-11) BUN 28 H (7-18) mg/dl Creatinine 5.04 H* D (0.6-1.2) mg/dl Est Cr Clr Drug Dosing 8.6 ml/min Est GFR ( Amer) 8.2 Est GFR (Non-Af Amer) 7.1 BUN/Creatinine Ratio 5.5 L (10-20) Glucose 80 (70-99) mg/dl POC Glucose (70-99) mg/dl Calcium 8.6 (8.5-10.1) mg/dl Iron 54 (35-150) mcg/dl TIBC 138 L (250-450) mcg/dl Transferrin 125 L (200-360) mg/dl Transferrin % Sat 31 (15-50) % Troponin I < 0.015 (0-0.045) ng/ml Vitamin B12 (211-911) pg/ml 25-OH Vitamin D Total 31.8 (30-100) ng/ml Folate > 24.00 (>5.38) ng/ml 08/20/20 08/20/20 Range/Units 20:10 19:05 WBC (4.8-10.8) K/uL RBC (4.2-5.4) M/uL Hgb (12.0-16.0) g/dL Hct (37-47) % MCV (80-100) fL MCH (25-34) pg MCHC (32-36) g/dL RDW Std Deviation (36.4-46.3) fL RDW Coeff of Jon (11.5-14.5) % Plt Count (130-400) K/uL MPV (7.4-10.4) fL Immature Gran % (Auto) % Neut % (Auto) % Lymph % (Auto) % Sawyer % (Auto) % Eos % (Auto) % Baso % (Auto) % Neut # (Auto) (1.4-6.5) K/uL Lymph # (Auto) (1.2-3.4) K/uL Sawyer # (Auto) (0.11-0.59) K/uL Eos # (Auto) (0-0.5) K/uL Baso # (Auto) (0-0.2) K/uL Immature Gran # (Auto) (0.00-0.02) K/uL PT (9.0-12.0) Seconds INR (0.9-1.1) Sodium (136-145) mmol/L Potassium (3.5-5.1) mmol/L Chloride (98-107) mmol/L Carbon Dioxide (21-32) mmol/L Anion Gap (3-11) BUN (7-18) mg/dl Creatinine (0.6-1.2) mg/dl Est Cr Clr Drug Dosing ml/min Est GFR ( Amer) Est GFR (Non-Af Amer) BUN/Creatinine Ratio (10-20) Glucose (70-99) mg/dl POC Glucose 103 H (70-99) mg/dl Calcium (8.5-10.1) mg/dl Iron (35-150) mcg/dl TIBC (250-450) mcg/dl Transferrin (200-360) mg/dl Transferrin % Sat (15-50) % Troponin I < 0.015 (0-0.045) ng/ml Vitamin B12 (211-911) pg/ml 25-OH Vitamin D Total (30-100) ng/ml Folate (>5.38) ng/ml PG Care Time/CCT Total # of Minutes Spent Total Time Spent with Patient: Total time spent is greater than 50% in coordination of care (as documented) at patient's floor/unit and/or counseling patient: Coding Level of Care Code 09473 Subseq Hosp Care Lvl 2 Diagnoses UTI (urinary tract infection) N39.0 Acute lumbar back pain M54.5 Diabetes mellitus with chronic kidney disease E11.22 AF (paroxysmal atrial fibrillation) I48.0 Hypertension I10 T12 compression fracture S22.080A ESRD (end stage renal disease) on dialysis N18.6; Z99.2 Hypothyroidism E03.9 Depression F32.9 Anemia D64.9 Hyperlipidemia E78.5 DVT prophylaxis Z29.9
[2020-08-21] MEDS: ERTAPENEM SODIUM 500 MG in SODIUM CHLORIDE 0.9% 50 ML IV SCH (17:21)
[2020-08-21] MEDS: CHOLECALCIFEROL 1,000 UNITS 25 MCG TAB PO SCH (19:45)
[2020-08-21] MEDS: ATORVASTATIN 10 MG TAB PO SCH (19:57)
[2020-08-21] MEDS: GABAPENTIN 300 MG CAP PO SCH (20:00)
[2020-08-21] MEDS: INSULIN GLARGINE SOLOSTAR 100 UNITS/ML 3 ML PEN SQ SCH (20:48)
[2020-08-22] MEDS: LEVOTHYROXINE SODIUM 112 MCG TABLET PO SCH (06:29)
[2020-08-22 06:41] LABS: INR 2.3 (0.9-1.1)
[2020-08-22] MEDS ORDERED: HEPARIN SOD (PORCINE) 1000 UNIT/ML 10 ML VIAL IV ONE (07:00)
[2020-08-22] MEDS ORDERED: SODIUM CHLORIDE 0.9% 1000ML 1,000 ML IV PRN (07:00)
[2020-08-22 07:20] LABS: BUN Creatinine Ratio 6.2 (10-20); Calcium 9.1 mg/dl (8.5-10.1); Creatinine Clr Calc Pharmacy 6.4 ml/min; Est GFR (African American) 5.8; Potassium 5.1 mmol/L (3.5-5.1)
[2020-08-22] MEDS: INSULIN ASPART 100 UNITS/ML 3 ML PEN SC SCH ×4 (08:27→20:58)
[2020-08-22] MEDS: FUROSEMIDE 20 MG TAB PO SCH ×2 (08:28→20:57)
[2020-08-22] MEDS: NEPHROCAPS PO SCH (08:28)
[2020-08-22] MEDS: hydrALAZINE TAB 50 MG TAB PO SCH ×2 (08:28→20:57)
[2020-08-22] MEDS: SERTRALINE HCL 50 MG TABLET PO SCH (08:29)
[2020-08-22] MEDS: amLODIPine BESYLATE 5 MG TAB PO SCH (08:29)
[2020-08-22] MEDS: CEROVITE ADV FORMULA TAB PO SCH (08:29)
[2020-08-22] MEDS: CALCIUM CARBONATE 1250MG TAB PO SCH ×3 (08:30→18:33)
[2020-08-22] MEDS: CHOLECALCIFEROL 1,000 UNITS 25 MCG TAB PO SCH (08:30)
[2020-08-22] MEDS: DOCUSATE SODIUM 100 MG CAP PO SCH (08:34)
[2020-08-22] MEDS: METOPROLOL TARTRATE 25 MG TAB PO SCH ×2 (08:34→20:57)
[2020-08-22] MEDS: ACETAMINOPHEN 325 MG TAB PO PRN (08:39)
[2020-08-22] MEDS: oxyCODONE HCL IR 5 MG TAB (IMMEDIATE RELEASE) PO PRN ×2 (08:40→21:12)
[2020-08-22] MEDS: MICONAZOLE NITRATE POWDER 43 GM EXT PRN (09:26)
[2020-08-22 09:55] LABS: Hematocrit (blood only) 31.7 % (37-47); Mean Corpuscular Hemoglobin 33.4 pg (25-34); Mean Corpuscular Hgb Conc 31.5 g/dL (32-36); Mean Platelet Volume 9.5 fL (7.4-10.4); Platelet Count 370 K/uL (130-400); RDW Coefficient of Variation 15.1 % (11.5-14.5); Red Blood Count 2.99 M/uL (4.2-5.4); White Blood Count 7.09 K/uL (4.8-10.8)
--- NOTE | 2020-08-22 09:56 | Hospitalist Progress Note ---
Date of Service August 22, 2020 Assessment & Plan (1) UTI (urinary tract infection): * abnormal UA, foul smelling discharge and history of ESBL Ecoli in 10/17 as well as decreased appetite/PO intake * Continue Ertapenem --renal dosed based on previous sensitivities * Urine --> ESBL E. Coli as well as Gamma Strep not Enterococcus (40k CFU) -- sensitive to Ertapenem (on day 4 of therapy) * Nephrology on consult -- patient underwent HD on 08/20, 900cc pulled off * HD for today * Instructions to give additional 125 mg IV of Ertapenem following HD if dialysis is performed within 6 hours of daily administered dose * PT/OT evals with possible benefit for rehab. CM following. Will also need assi stance with abx at d/c given above * Continue to monitor (2) Acute lumbar back pain: * her pain is atypical as is not in typical location of T12, this could be an upper urinary infection but with supratherapeutic INR concern for other issues prompted CTA/P * CTA/P and Lumbar Spine: * acute superior endplate compression fracture of L2 with minimal loss of height , and acute to subacute superior endplate compression fracture of T12. Loss of height has modestly increased from older prior examinations. No retropulsed fragments. Paravertebral soft tissue edema at T12 and L2 fracture levels. * Pain control reported to be adequate, although patient painful with movements * Continue current regimen as ordered -- lidocaine and parenteral opiates * Consulted ortho spine -- appreciate recs. 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 She is rate controlled with metoprolol at this time- we will check daily INRs. TSH wnl * Had been NSR on monitor and off telemetry last evening --> EKG with sinus howie, nonspecific T wave abnormality lateral leads, poor R wave progression. * Troponin's initially negative but most recent 0.019 but repeat <0.015 -- suspect secondary to demand given above * Did NOT get Vit K (INR 4.9 on admit) * No s/sx active bleeding * Coumadin had been held due to elevation on admission --> resumed today but at 2mg daily given elevated on admission and no recent abx. May need reduced dosage at discharge * INR in AM (5) Hypertension: * Stable * BP 149/65 * Continue amlodipine, hydralazine, and metoprolol as well as Lasix 20mg BID (6) T12 compression fracture: * See above (7) ESRD (end stage renal disease) on dialysis: * As above * Appreciate nephrology consultation * Continue Nephrocaps * Cr 6.76 -- HF planned for today * BMP in AM (8) Hypothyroidism: * TSH 2.6 on admit * Synthroid 112mcg daily (9) Depression: * Continue zoloft (10) Anemia: * Hemoglobin 9.6, macrocytic with MCV 106.9. Did receive 1 dose of EPO on 08/20 as per nephrology * Iron studies c/w anemia of chronic disease - iron 54, TIBC 138, Transferrin 125, Transferrin % Sat 31 * B12 715, Folate >24.00 * Does have notable heterogenous and nodular liver suggestive of cirrhosis on CT scan-macrocytosis could be from liver disease * ? F/u hematology outpt (11) Hyperlipidemia: * Continue atorvastatin (12) DVT prophylaxis: * Coumadin resumed as above. INR in AM Disposition-continued stay, HD today. Will need continued abx for ESBL EColi UTI. CM following as patient may benefit from acute rehab and no beds available. with dementia at home. They do not want to return to [facility], but rather remain in their home and continue with caregivers (private pay) but POA is shared with daughter Brenda (1/3 siblings) and will follow up on monday to see what patient is willing to do. Will see how she progresses with therapy through the weekend while awaiting determination. Admission and Anticipated Discharge Date Admission Date: August 19, 2020 Supervising Physician Co-Signing Physician Notes PA Supervision Note: I did not personally see or examine the patient today, but I verified all barton points of GUI E[place]'s assessment and plan with the following exceptions/additions: Notations made as above Subjective Patient evaluated this morning. Feeling much better with regards to pain since receiving brace yesterday. Didn't do too great with therapy today but does have a little more strength today. Plans to continue therapy throughout the weekend and HD today. If she progressive with therapy would consider home therapy as she would ideally like to return home with if possible. Eating/drinking without difficulty although she does note she doesn't have much of an appetite depending on what is ordered. She liked her soup this afternoon and will request more if needed. No fever, chills (felt cool but improved with warm blanket), chest pain, shortness of breath, abdominal pain, nausea or vomiting. She has passed gas but no BM. Got some stool softener this morning and feels like she may have to go soon. Questions/concerns addressed at this time. Review of Systems Review of Systems: All systems reviewed & are unremarkable except as noted in HPI & below Physical Exam Constitutional: well developed; not in distress Eyes: + anicteric sclerae (blind in L eye, partial R) Neck: trachea midline, no thyromegaly normal visual inspection and trachea midline Respiratory: normal respiratory effort, lungs clear to auscultation Cardiovascular: Rate/Rhythm: regular rate and regular rhythm Heart Sounds: no murmur Extremities: + AV fistula (+ bruit) Chest (Breasts): Additional Comments: dialysis catheter to R chest wall TLO brace in place with patient up in chair Gastrointestinal (Abdomen): Inspection/Auscultation: normal bowel sounds Percussion/Palpation: abdomen nontender Musculoskeletal: Extremities: no cyanosis decreased, but equal strength Skin: cool, dry Neurologic: awake; not confused Psychiatric: Orientation: alert, oriented to person, oriented to place and oriented to time Lymphatic: no cervical or axillary lymphadenopathy Results & Data Results & Data ([facility]) Vital Signs (Past 12 Hours) Vital Signs Temp Pulse Pulse Resp BP Pulse Ox 08/22/20 08:38 36.8 C 55 L 20 112/62 94 08/21/20 23:00 36.8 C 58 L 18 122/55 L 97 Laboratory Results 10/08/22/20 08/22/20 Range/Units 11:44 07:47 06:22 WBC 7.09 (4.8-10.8) K/uL RBC 2.99 L (4.2-5.4) M/uL Hgb 10.0 L (12.0-16.0) g/dL Hct 31.7 L (37-47) % MCV 106.0 H (80-100) fL MCH 33.4 (25-34) pg MCHC 31.5 L (32-36) g/dL RDW Std Deviation 58.0 H (36.4-46.3) fL RDW Coeff of Jon 15.1 H (11.5-14.5) % Plt Count 370 (130-400) K/uL MPV 9.5 (7.4-10.4) fL Peripher Smr Path Cons PT (9.0-12.0) Seconds INR (0.9-1.1) Sodium (136-145) mmol/L Potassium (3.5-5.1) mmol/L Chloride (98-107) mmol/L Carbon Dioxide (21-32) mmol/L Anion Gap (3-11) BUN (7-18) mg/dl Creatinine (0.6-1.2) mg/dl Est Cr Clr Drug Dosing ml/min Est GFR ( Amer) Est GFR (Non-Af Amer) BUN/Creatinine Ratio (10-20) Glucose (70-99) mg/dl POC Glucose 151 H 85 (70-99) mg/dl Calcium (8.5-10.1) mg/dl Folate (>5.38) ng/ml 08/22/20 08/22/20 08/21/20 Range/Units 06:18 06:18 20:20 WBC (4.8-10.8) K/uL RBC (4.2-5.4) M/uL Hgb (12.0-16.0) g/dL Hct (37-47) % MCV (80-100) fL MCH (25-34) pg MCHC (32-36) g/dL RDW Std Deviation (36.4-46.3) fL RDW Coeff of Jon (11.5-14.5) % Plt Count (130-400) K/uL MPV (7.4-10.4) fL Peripher Smr Path Cons PT 23.0 H (9.0-12.0) Seconds INR 2.3 H (0.9-1.1) Sodium 137 (136-145) mmol/L Potassium 5.1 (3.5-5.1) mmol/L Chloride 104 (98-107) mmol/L Carbon Dioxide 28 (21-32) mmol/L Anion Gap 5.0 (3-11) BUN 42 H (7-18) mg/dl Creatinine 6.76 H* D (0.6-1.2) mg/dl Est Cr Clr Drug Dosing 6.4 ml/min Est GFR ( Amer) 5.8 Est GFR (Non-Af Amer) 5.0 BUN/Creatinine Ratio 6.2 L (10-20) Glucose 81 (70-99) mg/dl POC Glucose 194 H (70-99) mg/dl Calcium 9.1 (8.5-10.1) mg/dl Folate (>5.38) ng/ml 08/21/20 08/21/20 08/21/20 Range/Units 19:11 16:51 05:57 WBC (4.8-10.8) K/uL RBC (4.2-5.4) M/uL Hgb (12.0-16.0) g/dL Hct (37-47) % MCV (80-100) fL MCH (25-34) pg MCHC (32-36) g/dL RDW Std Deviation (36.4-46.3) fL RDW Coeff of Jon (11.5-14.5) % Plt Count (130-400) K/uL MPV (7.4-10.4) fL Peripher Smr Path Cons Pending PT (9.0-12.0) Seconds INR (0.9-1.1) Sodium (136-145) mmol/L Potassium (3.5-5.1) mmol/L Chloride (98-107) mmol/L Carbon Dioxide (21-32) mmol/L Anion Gap (3-11) BUN (7-18) mg/dl Creatinine (0.6-1.2) mg/dl Est Cr Clr Drug Dosing ml/min Est GFR ( Amer) Est GFR (Non-Af Amer) BUN/Creatinine Ratio (10-20) Glucose (70-99) mg/dl POC Glucose 194 H (70-99) mg/dl Calcium (8.5-10.1) mg/dl Folate > 24.00 (>5.38) ng/ml PG Care Time/CCT Total # of Minutes Spent Total Time Spent with Patient: Total time spent is greater than 50% in coordination of care (as documented) at patient's floor/unit and/or counseling patient: Coding Level of Care Code 17170 Subseq Hosp Care Lvl 2 Diagnoses UTI (urinary tract infection) N39.0 Acute lumbar back pain M54.5 Diabetes mellitus with chronic kidney disease E11.22 AF (paroxysmal atrial fibrillation) I48.0 Hypertension I10 T12 compression fracture S22.080A ESRD (end stage renal disease) on dialysis N18.6; Z99.2 Hypothyroidism E03.9 Depression F32.9 Anemia D64.9 Hyperlipidemia E78.5 DVT prophylaxis Z29.9
--- NOTE | 2020-08-22 10:44 | Pharmacy Report ---
Pharmacy Glycemic Short Note 2 - Date of Service August 22, 2020 - Glycemic Short BSG Results (Last 24 hours): 08/21/20 08/21/20 08/21/20 11:45 16:51 20:20 Glucose POC Glucose 113 H 194 H 194 H 08/22/20 08/22/20 06:18 07:47 Glucose 81 POC Glucose 85 ASSESSMENT: 08/22 * Patient received total of 16 units of insulin yesterday, of which 10 were basal * Fasting BSG 85 mg/dL - will decrease parameters * Provider adjusting CF/CR last evening / continue same for now PLAN FOR INPATIENT GLYCEMIC CONTROL: * Basal insulin: 0-5 units HS * Bolus insulin: continue * NovoLog per scale ACHS or Q6hrs while NPO * Goal Range: Low 110 mg/dL - High 140 mg/dL * Correction Factor: 30 mg/dL/unit * Nutritional / Prandial insulin per carb ratio of 1 unit per 10 grams CHO consumed PLAN FOR DISCHARGE: * A1c of 6.9% on admission - indicates adequate control * Patient with very poor oral intake on admission / would recommend dosage decrease on discharge if PO intake does not improve
--- NOTE | 2020-08-22 13:29 | Nephrology Progress Note ---
Date of Service August 22, 2020 Assessment & Plan (1) End stage renal disease: Shauna has ESRD on HD TTS, HTN, DM, A fib admitted to the hospital with back pain secondary to T12 compression fracture and urinary tract infection. she has maturing left upper extremity AV fistula and right IJ tunneled dialysis catheter -- Dialysis today for 4 hours with 2K bath as her regular schedule. -- Dose medications for GFR less than 10, left arm nephrology precaution, renal diet Will follow (2) Hypertension: (3) T12 compression fracture: (4) Urinary tract infection: Admission and Anticipated Discharge Date Admission Date: August 19, 2020 Subjective Shauna was seen and examined in her room this morning. Overall she feels better although appetite remained poor. No fever or chills. Blood pressure, volume status, electrolyte acceptable. Review of Systems Review of Systems: All systems reviewed & are unremarkable except as noted in HPI & below Physical Exam Constitutional: well developed and well nourished; no acute distress Respiratory: normal respiratory effort, lungs clear to auscultation Cardiovascular: RRR, no murmur, no edema Neurologic: moves all extremities and awake; not confused Psychiatric: A+Ox3, euthymic affect Results & Data ([facility]) Vital Signs (Past 12 Hours) Vital Signs Temp Pulse Resp BP BP Pulse Ox 08/22/20 12:15 36.7 C 75 20 149/65 H 94 08/22/20 08:38 36.8 C 55 L 20 112/62 94 PG Care Time/CCT Total # of Minutes Spent Total Time Spent with Patient: Total time spent is greater than 50% in coordination of care (as documented) at patient's floor/unit and/or counseling patient: Coding Level of Care Code 41497 Subseq Hosp Care Lvl 3 Diagnoses End stage renal disease N18.6 Hypertension I10 T12 compression fracture S22.080A Urinary tract infection N39.0 Hematuria presence: without hematuria Urinary tract infection type: site unspecified (1) Urinary tract infection Hematuria presence: without hematuria Urinary tract infection type: site unspecified Qualified Code(s): N39.0 - Urinary tract infection, site not specified
[2020-08-22] MEDS: WARFARIN SOD 2 MG TAB PO SCH (15:18)
[2020-08-22] MEDS: HEPARIN SOD (PORCINE) 1000 UNIT/ML 10 ML VIAL IV SCH (16:26)
[2020-08-22] MEDS: MUPIROCIN 2% OINT 22 GM TUBE EXT SCH (20:56)
[2020-08-22] MEDS: ATORVASTATIN 10 MG TAB PO SCH (20:57)
[2020-08-22] MEDS: INSULIN GLARGINE SOLOSTAR 100 UNITS/ML 3 ML PEN SQ SCH (20:59)
[2020-08-22] MEDS: ERTAPENEM SODIUM 500 MG in SODIUM CHLORIDE 0.9% 50 ML IV SCH (21:12)
[2020-08-23] MEDS: LEVOTHYROXINE SODIUM 112 MCG TABLET PO SCH (06:00)
[2020-08-23 06:30] LABS: Hematocrit (blood only) 33.1 % (37-47); Hemoglobin 10.4 g/dL (12.0-16.0); Mean Corpuscular Hgb Conc 31.4 g/dL (32-36); Mean Corpuscular Volume 108.2 fL (80-100); Mean Platelet Volume 9.1 fL (7.4-10.4); Platelet Count 364 K/uL (130-400); RDW Standard Deviation 59.1 fL (36.4-46.3); Red Blood Count 3.06 M/uL (4.2-5.4); White Blood Count 8.69 K/uL (4.8-10.8)
[2020-08-23 06:48] LABS: INR 1.8 (0.9-1.1); Prothrombin Time 18.8 Seconds (9.0-12.0)
[2020-08-23 07:11] LABS: BUN Creatinine Ratio 5.1 (10-20); Calcium 8.3 mg/dl (8.5-10.1); Creatinine Clr Calc Pharmacy 8.7 ml/min; Est GFR (African American) 8.2; Est GFR (Non-African American) 7.1; Potassium 4.4 mmol/L (3.5-5.1)
[2020-08-23] MEDS: METOPROLOL TARTRATE 25 MG TAB PO SCH ×2 (08:37→21:15)
[2020-08-23] MEDS: INSULIN ASPART 100 UNITS/ML 3 ML PEN SC SCH ×4 (08:41→21:18)
[2020-08-23] MEDS: GABAPENTIN 100 MG CAP PO SCH (08:42)
[2020-08-23] MEDS: DOCUSATE SODIUM 100 MG CAP PO SCH (08:42)
[2020-08-23] MEDS: SERTRALINE HCL 50 MG TABLET PO SCH (08:42)
[2020-08-23] MEDS: NEPHROCAPS PO SCH (08:42)
[2020-08-23] MEDS: amLODIPine BESYLATE 5 MG TAB PO SCH (08:43)
[2020-08-23] MEDS: CALCIUM CARBONATE 1250MG TAB PO SCH ×3 (08:43→17:32)
[2020-08-23] MEDS: FUROSEMIDE 20 MG TAB PO SCH ×2 (08:43→21:18)
[2020-08-23] MEDS: CEROVITE ADV FORMULA TAB PO SCH (08:43)
[2020-08-23] MEDS: CHOLECALCIFEROL 1,000 UNITS 25 MCG TAB PO SCH (08:43)
[2020-08-23] MEDS: MUPIROCIN 2% OINT 22 GM TUBE EXT SCH ×2 (08:44→21:18)
[2020-08-23] MEDS: hydrALAZINE TAB 50 MG TAB PO SCH ×2 (08:44→21:15)
--- NOTE | 2020-08-23 09:26 | Hospitalist Progress Note ---
Date of Service August 23, 2020 Assessment & Plan (1) UTI (urinary tract infection): * abnormal UA, foul smelling discharge and history of ESBL Ecoli in 10/17 as well as decreased appetite/PO intake * Continue Ertapenem --renal dosed based on previous sensitivities * Urine --> ESBL E. Coli as well as Gamma Strep not Enterococcus (40k CFU) -- sensitive to Ertapenem (on day 5 of therapy) * Nephrology on consult -- patient underwent HD on 08/20, 900mL pulled off * HD on 08/22 for 1,000mL * Instructions to give additional 125 mg IV of Ertapenem following HD if dialysis is performed within 6 hours of daily administered dose * PT/OT evals with possible benefit for rehab. CM following. Will also need assistance with abx at d/c given above * Continue to monitor (2) Acute lumbar back pain: * her pain is atypical as is not in typical location of T12, this could be an upper urinary infection but with supratherapeutic INR concern for other issues prompted CTA/P * CT A/P and Lumbar Spine: * acute superior endplate compression fracture of L2 with minimal loss of height , and acute to subacute superior endplate compression fracture of T12. Loss of height has modestly increased from older prior examinations. No retropulsed fragments. Paravertebral soft tissue edema at T12 and L2 fracture levels. * Pain control reported to be adequate, although patient painful with movements * Continue current regimen as ordered -- lidocaine and parenteral opiates * Consulted ortho spine -- appreciate recs. non-operative * Consulted orthotics to provide off the shelf LSO to be worn when up and walking GREATLY IMPROVED TODAY WITH USE OF LSO BRACE, stable * Vit D level low at 31.8 -- will order supplementation * Ok with nephrology to continue Vit D supplementation and will address at HD outpatient regarding use of calcitriol per Dr. 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 She is rate controlled with metoprolol at this time- we will check daily INRs. TSH wnl * Had been NSR on monitor and off telemetry last evening --> EKG with sinus howie, nonspecific T wave abnormality lateral leads, poor R wave progression. * Troponin's initially negative but most recent 0.019 but repeat <0.015 -- suspect secondary to demand given above * Did NOT get Vit K (INR 4.9 on admit) * No s/sx active bleeding * INR 1.8 * --> Coumadin had been held due to elevation on admission --> resumed 08/22 but at 2mg daily given elevated on admission and no recent abx. Given that INR is still low, will increase Coumadin today to 3 mg daily and may need reduced dosage at discharge pending INR in AM (typically on 4mg) * INR in AM (5) Hypertension: * Stable * BP 122/60 * Continue amlodipine, hydralazine, and metoprolol as well as Lasix 20mg BID (6) T12 compression fracture: * See above (7) ESRD (end stage renal disease) on dialysis: * As above * Appreciate nephrology consultation * Continue Nephrocaps * Cr 5.05 -- had HD on 08/22 * BMP in AM * Typically on outpatient dialysis Monday (8) Hypothyroidism: * TSH 2.6 on admit * Synthroid 112mcg daily (9) Depression: * Continue zoloft (10) Anemia: * Hemoglobin 9.6, macrocytic with MCV 106.9. Did receive 1 dose of EPO on 08/20 as per nephrology * Iron studies c/w anemia of chronic disease - iron 54, TIBC 138, Transferrin 125, Transferrin % Sat 31 * B12 715, Folate >24.00 * Does have notable heterogenous and nodular liver suggestive of cirrhosis on CT scan-macrocytosis could be from liver disease * ? F/u hematology outpt (11) Hyperlipidemia: * Continue atorvastatin (12) DVT prophylaxis: * Coumadin resumed as above. INR in AM Disposition-continued stay. Will need continued abx for ESBL EColi UTI. CM following as patient may benefit from acute rehab and no beds available. with dementia at home. They do not want to return to [facility], but rather remain in their home and continue with caregivers (private pay) but POA is shared with daughter Brenda (1/3 siblings) and will follow up on monday to see what patient is willing to do. Will see how she progresses with therapy through the weekend while awaiting determination. Admission and Anticipated Discharge Date Admission Date: August 19, 2020 Supervising Physician Co-Signing Physician Notes PA Supervision Note: I did not personally see or examine the patient today, but I verified all barton points of GUI [place]'s assessment and plan with the following exceptions/additions: Notations made as above Subjective Patient evaluated this morning. Feeling better. Did not get to work with therapy yesterday. Tolerated HD yesterday. Still hopeful for discharge home if continues to make progress. Eating more today. Discussed need to eat more protein. Patient still with pain to her back, but controlled with ordered medications. Plans to re-evaluate home with therapy vs acute rehab in the AM and will need continued IV abx. Had large Bm this morning. No fever, chills, chest pain, shortness of breath, abdominal pain, n/v at this time. Questions/concerns addressed at this time. Review of Systems Review of Systems: All systems reviewed & are unremarkable except as noted in HPI & below Physical Exam Constitutional: well developed; not in distress Eyes: + anicteric sclerae (blind in L eye, partial R) Neck: trachea midline, no thyromegaly normal visual inspection and trachea midline Respiratory: normal respiratory effort, lungs clear to auscultation Cardiovascular: Rate/Rhythm: regular rate and regular rhythm Heart Sounds: no murmur Extremities: + AV fistula (+ bruit) Gastrointestinal (Abdomen): Inspection/Auscultation: normal bowel sounds Percussion/Palpation: abdomen nontender Musculoskeletal: Extremities: no cyanosis Skin: no rashes, warm and dry Neurologic: awake; not confused Psychiatric: Orientation: alert, oriented to person, oriented to place and oriented to time Affect: + flat affect Lymphatic: no cervical or axillary lymphadenopathy Results & Data Results & Data ([facility]) Vital Signs (Past 12 Hours) Vital Signs Temp Pulse Pulse Resp BP Pulse Ox 08/23/20 08:16 37.0 C 58 L 20 122/60 96 08/22/20 23:02 37.0 C 53 L 18 94/56 L 100 Laboratory Results 08/23/20 08/23/20 08/23/20 Range/Units 07:43 06:08 06:08 WBC (4.8-10.8) K/uL RBC (4.2-5.4) M/uL Hgb (12.0-16.0) g/dL Hct (37-47) % MCV (80-100) fL MCH (25-34) pg MCHC (32-36) g/dL RDW Std Deviation (36.4-46.3) fL RDW Coeff of Jon (11.5-14.5) % Plt Count (130-400) K/uL MPV (7.4-10.4) fL PT 18.8 H (9.0-12.0) Seconds INR 1.8 H (0.9-1.1) Sodium 137 (136-145) mmol/L Potassium 4.4 (3.5-5.1) mmol/L Chloride 103 (98-107) mmol/L Carbon Dioxide 29 (21-32) mmol/L Anion Gap 6.0 (3-11) BUN 26 H (7-18) mg/dl Creatinine 5.05 H* D (0.6-1.2) mg/dl Est Cr Clr Drug Dosing 8.7 ml/min Est GFR ( Amer) 8.2 Est GFR (Non-Af Amer) 7.1 BUN/Creatinine Ratio 5.1 L (10-20) Glucose 75 (70-99) mg/dl POC Glucose 87 (70-99) mg/dl Calcium 8.3 L (8.5-10.1) mg/dl 08/23/20 08/22/20 08/22/20 Range/Units 06:08 20:08 11:44 WBC 8.69 (4.8-10.8) K/uL RBC 3.06 L (4.2-5.4) M/uL Hgb 10.4 L (12.0-16.0) g/dL Hct 33.1 L (37-47) % MCV 108.2 H (80-100) fL MCH 34.0 (25-34) pg MCHC 31.4 L (32-36) g/dL RDW Std Deviation 59.1 H (36.4-46.3) fL RDW Coeff of Jon 15.0 H (11.5-14.5) % Plt Count 364 (130-400) K/uL MPV 9.1 (7.4-10.4) fL PT (9.0-12.0) Seconds INR (0.9-1.1) Sodium (136-145) mmol/L Potassium (3.5-5.1) mmol/L Chloride (98-107) mmol/L Carbon Dioxide (21-32) mmol/L Anion Gap (3-11) BUN (7-18) mg/dl Creatinine (0.6-1.2) mg/dl Est Cr Clr Drug Dosing ml/min Est GFR ( Amer) Est GFR (Non-Af Amer) BUN/Creatinine Ratio (-20) Glucose (70-99) mg/dl POC Glucose 136 H 151 H (70-99) mg/dl Calcium (8.5-10.1) mg/dl 08/22/20 Range/Units 06:22 WBC 7.09 (4.8-10.8) K/uL RBC 2.99 L (4.2-5.4) M/uL Hgb 10.0 L (12.0-16.0) g/dL Hct 31.7 L (37-47) % MCV 106.0 H (80-100) fL MCH 33.4 (25-34) pg MCHC 31.5 L (32-36) g/dL RDW Std Deviation 58.0 H (36.4-46.3) fL RDW Coeff of Jon 15.1 H (11.5-14.5) % Plt Count 370 (130-400) K/uL MPV 9.5 (7.4-10.4) fL PT (9.0-12.0) Seconds INR (0.9-1.1) Sodium (136-145) mmol/L Potassium (3.5-5.1) mmol/L Chloride (98-107) mmol/L Carbon Dioxide (21-32) mmol/L Anion Gap (3-11) BUN (7-18) mg/dl Creatinine (0.6-1.2) mg/dl Est Cr Clr Drug Dosing ml/min Est GFR ( Amer) Est GFR (Non-Af Amer) BUN/Creatinine Ratio (10-20) Glucose (70-99) mg/dl POC Glucose (70-99) mg/dl Calcium (8.5-10.1) mg/dl PG Care Time/CCT Total # of Minutes Spent Total Time Spent with Patient: Total time spent is greater than 50% in coordination of care (as documented) at patient's floor/unit and/or counseling patient: Coding Level of Care Code 61857 Subseq Hosp Care Lvl 2 Diagnoses UTI (urinary tract infection) N39.0 Acute lumbar back pain M54.5 Diabetes mellitus with chronic kidney disease E11.22 AF (paroxysmal atrial fibrillation) I48.0 Hypertension I10 T12 compression fracture S22.080A ESRD (end stage renal disease) on dialysis N18.6; Z99.2 Hypothyroidism E03.9 Depression F32.9 Anemia D64.9 Hyperlipidemia E78.5 DVT prophylaxis Z29.9
--- NOTE | 2020-08-23 11:09 | Pharmacy Report ---
Pharmacy Glycemic Short Note 2 - Date of Service August 23, 2020 - Glycemic Short BSG Results (Last 24 hours): 08/22/20 08/22/20 08/23/20 11:44 20:08 06:08 Glucose 75 POC Glucose 151 H 136 H 08/23/20 07:43 Glucose POC Glucose 87 ASSESSMENT: 08/23 * Patient received total of 19 units of insulin yesterday, of which 8 were basal insulin * Fasting BSG 75 mg/dL - will decrease basal more for tonight 0-5 units based upon BSG * Continue same CF/CR 08/22 * Patient received total of 16 units of insulin yesterday, of which 10 were basal * Fasting BSG 85 mg/dL - will decrease parameters * Provider adjusting CF/CR last evening / continue same for now PLAN FOR INPATIENT GLYCEMIC CONTROL: * Basal insulin: 0-5 units HS * Bolus insulin: continue * NovoLog per scale ACHS or Q6hrs while NPO * Goal Range: Low 110 mg/dL - High 140 mg/dL * Correction Factor: 25 mg/dL/unit * Nutritional / Prandial insulin per carb ratio of 1 unit per 9 grams CHO consumed PLAN FOR DISCHARGE: * A1c of 6.9% on admission - indicates adequate control * Patient with very poor oral intake on admission / would recommend dosage decrease on discharge if PO intake does not improve
--- NOTE | 2020-08-23 11:36 | Nephrology Progress Note ---
Date of Service August 23, 2020 Assessment & Plan (1) End stage renal disease: Shauna has ESRD on HD TTS, HTN, DM, A fib admitted to the hospital with back pain secondary to T12 compression fracture and urinary tract infection. she has maturing left upper extremity AV fistula and right IJ tunneled dialysis catheter Had dialysis yesterday, tolerated well, uneventful. Currently blood pressure, volume status, electrolyte acceptable. -- Next dialysis Monday. Advised her to increase protein intake -- Dose medications for GFR less than 10, left arm nephrology precaution, renal diet -- continue on physical therapy, waiting on decision to discharge either to rehab or home depending on how much she is able to participate with physical therapy and whether she will be safe to go home Will follow (2) Hypertension: (3) T12 compression fracture: * Appreciate orthopedics input - pain mostly from new L2 fracture. They recommend lumbar support orthotic (4) Urinary tract infection: Admission and Anticipated Discharge Date Admission Date: August 19, 2020 Subjective Shauna was seen and examined in her room this morning. Overall she feels better and trying to eat better. Back pain persists, wearing back brace.No fever or chills. Blood pressure, volume status, electrolyte acceptable. Review of Systems Review of Systems: All systems reviewed & are unremarkable except as noted in HPI & below Physical Exam Constitutional: well developed and well nourished; no acute distress Respiratory: normal respiratory effort, lungs clear to auscultation Cardiovascular: RRR, no murmur, no edema Neurologic: moves all extremities and awake; not confused Psychiatric: A+Ox3, euthymic affect Results & Data ([facility]) Vital Signs (Past 12 Hours) Vital Signs Temp Pulse Resp BP Pulse Ox 08/23/20 08:16 37.0 C 58 L 20 122/60 96 PG Care Time/CCT Total # of Minutes Spent Total Time Spent with Patient: Total time spent is greater than 50% in coordination of care (as documented) at patient's floor/unit and/or counseling patient: Coding Level of Care Code 29203 Subseq Hosp Care Lvl 2 Diagnoses End stage renal disease N18.6 Hypertension I10 T12 compression fracture S22.080A Urinary tract infection N39.0 Hematuria presence: without hematuria Urinary tract infection type: site unspecified (1) Urinary tract infection Hematuria presence: without hematuria Urinary tract infection type: site unspecified Qualified Code(s): N39.0 - Urinary tract infection, site not specified
[2020-08-23] MEDS: WARFARIN SOD 2 MG TAB PO SCH (17:32)
[2020-08-23] MEDS: ERTAPENEM SODIUM 500 MG in SODIUM CHLORIDE 0.9% 50 ML IV SCH (21:15)
[2020-08-23] MEDS: ATORVASTATIN 10 MG TAB PO SCH (21:16)
[2020-08-23] MEDS: GABAPENTIN 300 MG CAP PO SCH (21:16)
[2020-08-23] MEDS: oxyCODONE HCL IR 5 MG TAB (IMMEDIATE RELEASE) PO PRN (21:17)
[2020-08-23] MEDS: INSULIN GLARGINE SOLOSTAR 100 UNITS/ML 3 ML PEN SQ SCH (21:19)
[2020-08-24] MEDS: LEVOTHYROXINE SODIUM 112 MCG TABLET PO SCH (06:10)
[2020-08-24 07:32] LABS: INR 1.4 (0.9-1.1); Prothrombin Time 14.6 Seconds (9.0-12.0)
[2020-08-24] MEDS: hydrALAZINE TAB 50 MG TAB PO SCH ×2 (07:58→20:50)
[2020-08-24] MEDS: GABAPENTIN 100 MG CAP PO SCH (07:58)
[2020-08-24] MEDS: SERTRALINE HCL 50 MG TABLET PO SCH (08:00)
[2020-08-24] MEDS: METOPROLOL TARTRATE 25 MG TAB PO SCH ×2 (08:00→20:48)
[2020-08-24] MEDS: amLODIPine BESYLATE 5 MG TAB PO SCH (08:01)
[2020-08-24] MEDS: CALCIUM CARBONATE 1250MG TAB PO SCH ×3 (08:01→17:18)
[2020-08-24] MEDS: CHOLECALCIFEROL 1,000 UNITS 25 MCG TAB PO SCH (08:02)
[2020-08-24] MEDS: NEPHROCAPS PO SCH (08:02)
[2020-08-24] MEDS: CEROVITE ADV FORMULA TAB PO SCH (08:02)
[2020-08-24] MEDS: FUROSEMIDE 20 MG TAB PO SCH ×2 (08:02→20:48)
[2020-08-24] MEDS: INSULIN ASPART 100 UNITS/ML 3 ML PEN SC SCH ×4 (08:04→20:48)
[2020-08-24 08:06] LABS: Albumin Level 2.4 gm/dl (3.4-5.0); BUN Creatinine Ratio 5.8 (10-20); Calcium 8.6 mg/dl (8.5-10.1); Creatinine Clr Calc Pharmacy 7.2 ml/min; Est GFR (African American) 6.5; Est GFR (Non-African American) 5.6; Phosphorus 3.4 mg/dl (2.5-4.9); Potassium 4.7 mmol/L (3.5-5.1)
[2020-08-24] MEDS: MUPIROCIN 2% OINT 22 GM TUBE EXT SCH ×2 (08:08→20:44)
[2020-08-24] MEDS: DOCUSATE SODIUM 100 MG CAP PO SCH (08:08)
--- NOTE | 2020-08-24 08:38 | Hospitalist Progress Note ---
Date of Service August 24, 2020 Assessment & Plan (1) Acute lumbar back pain: Denies pain, states brace helping significantly cont lidocaine and parenteral opiates, transition to PO opiates (2) T12 compression fracture: CT A/P and Lumbar Spine: acute superior endplate compression fracture of L2 with minimal loss of height, and acute to subacute superior endplate compression fracture of T12. Loss of height has modestly increased from older prior examinations. No retropulsed fragments. Paravertebral soft tissue edema at T12 and L2 fracture levels. Brace placed Ortho spine recommended non-operative management Orthotics recommended LSO to be worn when up and walking Present on Admission?: Yes (3) UTI (urinary tract infection): Urine culture with ESBL E. 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 (8) Supratherapeutic INR: Patient's INR was supratherapeutic on admission- her Coumadin was held resumed 08/22 but at 2mg daily given elevated on admission and no recent abx. Given that INR is still low, will increase Coumadin today to 3 mg daily and may need reduced dosage at discharge pending INR in AM (typically on 4mg) Present on Admission?: Yes (9) Hypertension: Stable Continue amlodipine, hydralazine, and metoprolol as well as Lasix 20mg BID (10) ESRD (end stage renal disease) on dialysis: Cont dialysis Monday Nephrology on consult -- patient underwent HD on 08/20, 900mL pulled off HD on 08/22 for 1,000mL Continue Nephrocaps (11) Hypothyroidism: TSH 2.6 on admit Synthroid 112mcg daily (12) Depression: Continue zoloft (13) Anemia: Hemoglobin 9.6, macrocytic with MCV 106.9. Did receive 1 dose of EPO on 08/20 as per nephrology Iron studies c/w anemia of chronic disease - iron 54, TIBC 138, Transferrin 125, Transferrin % Sat 31 B12 715, Folate >24.00 Does have notable heterogenous and nodular liver suggestive of cirrhosis on CT scan-macrocytosis could be from liver disease (14) Hyperlipidemia: Continue atorvastatin (15) DVT prophylaxis: coumadin Accepted at [facility] but patient refusing. May be able to obtain more help at home vs consider other SNF CM to discuss with patient's daughter -- POA is shared with daughter Brenda (1/3 siblings) Likely discharge to home or SNF on 08-26 Admission and Anticipated Discharge Date Admission Date: August 19, 2020 Subjective Working with PT and requiring maximum assist to get up from chair. Able to ambulate with walker. Patient strongly prefers to go home with home health -- will need 24-7 assist. Tolerating diet -- complaining about dry meat. States she had BM yesterday. Pain in back is well controlled with back brace which she is wearing at all times. Review of Systems Constitutional: + weakness; no fever, no chills, no fatigue, no anorexia, no weight loss and no weight gain Ear, Nose, Mouth, Throat: no nasal congestion, no sore throat and no dysphagia Respiratory: no cough and no dyspnea Cardiovascular: no chest pain, no dyspnea on exertion, no orthopnea and no palpitations Gastrointestinal: no abdominal pain, no nausea, no vomiting, no hematemesis, no dysphagia, no constipation, no diarrhea/loose stools, no blood in stools and no melena Genitourinary: no dysuria, no urinary frequency, no hematuria and no flank pain Musculoskeletal: no back pain, no joint pain, no myalgia and no muscle weakness Integumentary: no rash, no lesions, no skin ulcer, no erythema, no dry skin and no pruritus Neurologic: no falls, no localized weakness, no generalized weakness, no numbness, no paresthesia, no tremor(s) and no headache(s) Psychiatric: no depression, no suicidal ideation, no homicidal ideation and no anxiety Endocrine: no cold intolerance and no heat intolerance Hematologic / Lymphatic: no easy bleeding and no easy bruising Physical Exam Constitutional: well developed and well nourished; no acute distress up in chair at bedside Eyes: PERRL, conjunctivae normal, anicteric sclerae ENMT: Mouth: oral mucous membranes not dry Respiratory: normal respiratory effort; no respiratory distress and no labored breathing Auscultation: lungs clear to auscultation bilaterally; no crackles, no rales, no rhonchi and no wheezes Cardiovascular: Rate/Rhythm: regular rate and regular rhythm Heart Sounds: no murmur and no cardiac rub Vessels: normal peripheral pulses and radial pulses present; no JVD Extremities: no edema Gastrointestinal (Abdomen): Inspection/Auscultation: abdomen normal to inspection and normal bowel sounds; abdomen not distended Percussion/Palpation: abdomen soft; abdomen nontender, no guarding, abdomen not rigid and no hepatosplenomegaly Musculoskeletal: Head/Neck/Chest: normocephalic and head atraumatic Spine: no cervical spinal tenderness, no cervical muscular tenderness, no thoracic spinal tenderness and no lumbar spinal tenderness Skin: no rashes, warm and dry Neurologic: CN's II-XI intact bilaterally and moves all extremities Motor/Sensory: no tremor and no sensory deficit Psychiatric: Orientation: alert, oriented to person, oriented to place and oriented to time Apperance: appropriately groomed; not disheveled Affect: euthymic affect; no anxious affect and no tearful affect Genitourinary: no CVA tenderness no Mitchell catheter Results & Data Results & Data ([facility]) Vital Signs (Past 12 Hours) Vital Signs Temp Pulse Resp BP BP Pulse Ox 08/24/20 07:15 36.7 C 56 L 16 120/59 L 94 08/23/20 23:57 37.0 C 51 L 17 105/51 L 93 PG Care Time/CCT Total # of Minutes Spent Total Time Spent with Patient: Total time spent is greater than 50% in coordination of care (as documented) at patient's floor/unit and/or counseling patient: Coding Level of Care Code [facility] Diagnoses Acute lumbar back pain M54.5 Back pain laterality: midline Sciatica presence: without sciatica T12 compression fracture S22.080A Encounter type: initial encounter UTI (urinary tract infection) N30.00 Hematuria presence: without hematuria Urinary tract infection type: acute cystitis Debility R53.81 Vitamin D deficiency E55.9 Diabetes mellitus with chronic kidney disease E11.22; N18.6; Z79.4; Z99.2 Chronic kidney disease stage: on chronic dialysis Diabetes mellitus terminal operator insulin use: with terminal operator use Diabetes mellitus type: type 2 AF (paroxysmal atrial fibrillation) I48.0 Supratherapeutic INR R79.1 Hypertension I10 Hypertension type: unspecified ESRD (end stage renal disease) on dialysis N18.6; Z99.2 Hypothyroidism E03.9 Hypothyroidism type: acquired Depression F32.9 Active/Remission status: remission status unspecified Depression Type: major depressive disorder Major depression recurrence: unspecified whether recurrent Anemia D64.9 Anemia type: unspecified type Hyperlipidemia E78.5 Hyperlipidemia type: unspecified DVT prophylaxis Z29.9 (1) UTI (urinary tract infection) Hematuria presence: without hematuria Urinary tract infection type: acute cystitis Qualified Code(s): N30.00 - Acute cystitis without hematuria (2) Diabetes mellitus with chronic kidney disease Chronic kidney disease stage: on chronic dialysis Diabetes mellitus usp insulin use: with usp use Diabetes mellitus type: type 2 Qualified Code(s): E11.22 - Type 2 diabetes mellitus with diabetic chronic kidney disease; N18.6 - End stage renal disease; Z79.4 - terminal clerk (current) use of insulin; Z99.2 - Dependence on renal dialysis (3) T12 compression fracture Encounter type: initial encounter Qualified Code(s): S22.080A - Wedge compression fracture of T11-T12 vertebra, initial encounter for closed fracture (4) Anemia Anemia type: unspecified type Qualified Code(s): D64.9 - Anemia, unspecified (5) Depression Active/Remission status: remission status unspecified Depression Type: major depressive disorder Major depression recurrence: unspecified whether recurrent Qualified Code(s): F32.9 - Major depressive disorder, single episode, unspecified (6) Hyperlipidemia Hyperlipidemia type: unspecified Qualified Code(s): E78.5 - Hyperlipidemia, unspecified (7) Hypothyroidism Hypothyroidism type: acquired Qualified Code(s): E03.9 - Hypothyroidism, unspecified (8) Acute lumbar back pain Back pain laterality: midline Sciatica presence: without sciatica Qualified Code(s): M54.5 - Low back pain (9) Hypertension Hypertension type: unspecified Qualified Code(s): I10 - Essential (primary) hypertension
--- NOTE | 2020-08-24 10:25 | Nephrology Progress Note ---
Date of Service August 24, 2020 Assessment & Plan (1) End stage renal disease: Shauna has ESRD on HD TTS, HTN, DM, A fib admitted to the hospital with back pain secondary to T12 compression fracture and urinary tract infection. she has maturing left upper extremity AV fistula and right IJ tunneled dialysis catheter Had dialysis yesterday, tolerated well, uneventful. Currently blood pressure, volume status, electrolyte acceptable. -- Next dialysis Tomorrow, if discharged, she will have HD tomorrow at outpt dialysis unit. -- Dose medications for GFR less than 10, left arm nephrology precaution, renal diet -- continue on physical therapy, waiting on decision to discharge either to rehab or home depending on how much she is able to participate with physical therapy and whether she will be safe to go home. However, pt has home health daily and she feels like she is safe and ready to go home and does not want to go to rehab. Will follow (2) Hypertension: (3) T12 compression fracture: * Appreciate orthopedics input - pain mostly from new L2 fracture. They recommend lumbar support orthotic (4) Urinary tract infection: Admission and Anticipated Discharge Date Admission Date: August 19, 2020 Subjective Shauna was seen and examined in her room this morning. Overall she feels better and trying to eat better. Back pain slightly better, wearing back brace.No fever or chills. Blood pressure, volume status, electrolyte acceptable. Getting PT. Review of Systems Review of Systems: All systems reviewed & are unremarkable except as noted in HPI & below Physical Exam Constitutional: well developed and well nourished; no acute distress Respiratory: normal respiratory effort, lungs clear to auscultation Cardiovascular: RRR, no murmur, no edema Neurologic: moves all extremities and awake; not confused Psychiatric: A+Ox3, euthymic affect Results & Data ([facility]) Vital Signs (Past 12 Hours) Vital Signs Temp Pulse Resp BP BP Pulse Ox 08/24/20 07:15 36.7 C 56 L 16 120/59 L 94 08/23/20 23:57 37.0 C 51 L 17 105/51 L 93 PG Care Time/CCT Total # of Minutes Spent Total Time Spent with Patient: Total time spent is greater than 50% in coordination of care (as documented) at patient's floor/unit and/or counseling patient: Coding Level of Care Code 67393 Subseq Hosp Care Lvl 3 Diagnoses End stage renal disease N18.6 Hypertension I10 T12 compression fracture S22.080A Urinary tract infection N39.0 Hematuria presence: without hematuria Urinary tract infection type: site unspecified (1) Urinary tract infection Hematuria presence: without hematuria Urinary tract infection type: site unspecified Qualified Code(s): N39.0 - Urinary tract infection, site not specified
[2020-08-24] MEDS: WARFARIN SOD 3 MG TAB PO SCH (17:18)
[2020-08-24] MEDS: ACETAMINOPHEN 325 MG TAB PO PRN (18:44)
[2020-08-24] MEDS: ERTAPENEM SODIUM 500 MG in SODIUM CHLORIDE 0.9% 50 ML IV SCH (20:42)
[2020-08-24] MEDS: INSULIN GLARGINE SOLOSTAR 100 UNITS/ML 3 ML PEN SQ SCH (20:44)
[2020-08-24] MEDS: ATORVASTATIN 10 MG TAB PO SCH (20:48)
[2020-08-24] MEDS: GABAPENTIN 300 MG CAP PO SCH (20:48)
[2020-08-25] MEDS: LEVOTHYROXINE SODIUM 112 MCG TABLET PO SCH (06:25)
[2020-08-25 07:25] LABS: INR 1.4 (0.9-1.1); Prothrombin Time 14.7 Seconds (9.0-12.0)
[2020-08-25 07:45] LABS: Hematocrit (blood only) 31.2 % (37-47); Hemoglobin 9.9 g/dL (12.0-16.0); Mean Corpuscular Hemoglobin 33.7 pg (25-34); Mean Corpuscular Hgb Conc 31.7 g/dL (32-36); Mean Corpuscular Volume 106.1 fL (80-100); Mean Platelet Volume 9.5 fL (7.4-10.4); Platelet Count 303 K/uL (130-400); RDW Coefficient of Variation 15.1 % (11.5-14.5); RDW Standard Deviation 57.8 fL (36.4-46.3); Red Blood Count 2.94 M/uL (4.2-5.4); White Blood Count 9.42 K/uL (4.8-10.8)
[2020-08-25 08:03] LABS: Albumin Level 2.5 gm/dl (3.4-5.0); BUN Creatinine Ratio 6.5 (10-20); Calcium 9.2 mg/dl (8.5-10.1); Creatinine Clr Calc Pharmacy 5.8 ml/min; Est GFR (Non-African American) 4.3; Phosphorus 3.6 mg/dl (2.5-4.9)
[2020-08-25] MEDS: CALCIUM CARBONATE 1250MG TAB PO SCH ×3 (08:06→17:17)
[2020-08-25] MEDS: CEROVITE ADV FORMULA TAB PO SCH (08:07)
[2020-08-25] MEDS: GABAPENTIN 100 MG CAP PO SCH (08:07)
[2020-08-25] MEDS: CHOLECALCIFEROL 1,000 UNITS 25 MCG TAB PO SCH (08:07)
[2020-08-25] MEDS: NEPHROCAPS PO SCH (08:08)
[2020-08-25] MEDS: SERTRALINE HCL 50 MG TABLET PO SCH (08:08)
[2020-08-25] MEDS: FUROSEMIDE 20 MG TAB PO SCH ×2 (08:09→20:26)
[2020-08-25] MEDS: MUPIROCIN 2% OINT 22 GM TUBE EXT SCH ×2 (08:09→20:28)
[2020-08-25] MEDS: INSULIN ASPART 100 UNITS/ML 3 ML PEN SC SCH ×4 (08:17→20:44)
[2020-08-25] MEDS: DOCUSATE SODIUM 100 MG CAP PO SCH (08:18)
--- NOTE | 2020-08-25 09:17 | Hospitalist Progress Note ---
Date of Service August 25, 2020 Assessment & Plan (1) Acute lumbar back pain: Denies pain, states brace helping significantly cont lidocaine patches stop opiates (2) T12 compression fracture: CT A/P and Lumbar Spine: acute superior endplate compression fracture of L2 with minimal loss of height, and acute to subacute superior endplate compression fracture of T12. Loss of height has modestly increased from older prior examinations. No retropulsed fragments. Paravertebral soft tissue edema at T12 and L2 fracture levels. Brace placed Ortho spine recommended non-operative management Orthotics recommended LSO to be worn when up and walking (3) UTI (urinary tract infection): Urine culture with ESBL E. Coli as well as Gamma Strep not Enterococcus (40k CFU) -- sensitive to Ertapenem (on day 6 of therapy) Instructions to give additional 125 mg IV of Ertapenem following HD if dialysis is performed within 6 hours of daily administered dose Completed day 7 today Stop ertapenem (4) Debility: PT recommended 24-7 assistance Need to see if this will be possible at her home working on discharge planning with daughter and case sealer (5) Supratherapeutic INR: Patient's INR was supratherapeutic on admission- her Coumadin was held resumed 08/22 but at 2mg daily given elevated on admission and no recent abx. Given that INR is still low, continue coumadin 3mg PO daily give extra 1mg on Monday and Monday (6) AF (paroxysmal atrial fibrillation): She is rate controlled with metoprolol at this time Had been NSR on monitor and off telemetry last evening EKG with sinus howie, nonspecific T wave abnormality lateral leads, poor R wave progression. (7) Vitamin D deficiency: Vit D level low at 31.8 started on supplementation (8) Diabetes mellitus with chronic kidney disease: * Patient be on basal bolus insulin with her typical home dose of long- acting, patient be continued on gabapentin for neuropathy * Pharmacy consulted for glycemic management * A1c 6.9 from previous values 6.5 * May need decreased needs at discharge if continues with poor intake * Continue to monitor (9) Hypertension: Stable Continue amlodipine, hydralazine, and metoprolol as well as Lasix 20mg BID (10) ESRD (end stage renal disease) on dialysis: Cont dialysis Monday Nephrology on consult -- patient underwent HD on 08/20, 900mL pulled off HD on 08/22 for 1,000mL Continue Nephrocaps (11) Hypothyroidism: TSH 2.6 on admit Synthroid 112mcg daily (12) Depression: Continue zoloft (13) Anemia: Hemoglobin 9.6, macrocytic with MCV 106.9. Did receive 1 dose of EPO on 08/20 as per nephrology Iron studies c/w anemia of chronic disease - iron 54, TIBC 138, Transferrin 125, Transferrin % Sat 31 B12 715, Folate >24.00 Does have notable heterogenous and nodular liver suggestive of cirrhosis on CT scan-macrocytosis could be from liver disease (14) Hyperlipidemia: Continue atorvastatin (15) DVT prophylaxis: coumadin Accepted at [facility] but patient refusing. May be able to obtain more help at home vs consider other SNF CM to discuss with patient's daughter -- POA is shared with daughter Brenda (1/3 siblings) Likely discharge to home or SNF on 08-26 Admission and Anticipated Discharge Date Admission Date: August 19, 2020 Subjective Patient tolerated dialysis today. Her appetite is poor and she did not eat her lunch -- states the food is too dry. No nausea, no vomiting. Denies dysuria, denies weakness. States she was tired today due to HD. States she is not needing pain medicine. The brace has completely alleviated her back pain. Patient still insisting she wants to go home with increased level of help at home. Refusing to go to SNF for rehab. Review of Systems Constitutional: + weakness; no fever, no chills, no fatigue, no anorexia, no weight loss and no weight gain Ear, Nose, Mouth, Throat: no nasal congestion, no sore throat and no dysphagia Respiratory: no cough and no dyspnea Cardiovascular: no chest pain, no dyspnea on exertion, no orthopnea and no palpitations Gastrointestinal: no abdominal pain, no nausea, no vomiting, no hematemesis, no dysphagia, no constipation, no diarrhea/loose stools, no blood in stools and no melena Genitourinary: no dysuria, no urinary frequency, no hematuria and no flank pain Musculoskeletal: no back pain, no joint pain, no myalgia and no muscle weakness Integumentary: no rash, no lesions, no skin ulcer, no erythema, no dry skin and no pruritus Neurologic: no falls, no localized weakness, no generalized weakness, no numbness, no paresthesia, no tremor(s) and no headache(s) Psychiatric: no depression, no suicidal ideation, no homicidal ideation and no anxiety Endocrine: no cold intolerance and no heat intolerance Hematologic / Lymphatic: no easy bleeding and no easy bruising Physical Exam Constitutional: well developed and well nourished; no acute distress Eyes: PERRL, conjunctivae normal, anicteric sclerae ENMT: Mouth: oral mucous membranes not dry Respiratory: normal respiratory effort; no respiratory distress and no labored breathing Auscultation: lungs clear to auscultation bilaterally; no crackles, no rales, no rhonchi and no wheezes Cardiovascular: Rate/Rhythm: regular rate and regular rhythm Heart Sounds: no murmur and no cardiac rub Vessels: normal peripheral pulses and radial pulses present; no JVD Extremities: no edema Gastrointestinal (Abdomen): Inspection/Auscultation: abdomen normal to inspection and normal bowel sounds; abdomen not distended Percussion/Palpation: abdomen soft; abdomen nontender, no guarding, abdomen not rigid and no hepatosplenomegaly Musculoskeletal: Head/Neck/Chest: normocephalic and head atraumatic Spine: no cervical spinal tenderness, no cervical muscular tenderness, no thoracic spinal tenderness and no lumbar spinal tenderness Skin: no rashes, warm and dry Neurologic: CN's II-XI intact bilaterally and moves all extremities Motor/Sensory: no tremor and no sensory deficit Psychiatric: Orientation: alert, oriented to person, oriented to place and oriented to time Apperance: appropriately groomed; not disheveled Affect: euthymic affect; no anxious affect and no tearful affect Genitourinary: no CVA tenderness Results & Data Results & Data ([facility]) Vital Signs (Past 12 Hours) Vital Signs Temp Pulse Resp BP BP Pulse Ox 08/25/20 07:09 36.6 C 56 L 16 138/72 96 08/24/20 23:50 36.8 C 62 18 128/62 94 Laboratory Results INR 1.4 PG Care Time/CCT Total # of Minutes Spent Total Time Spent with Patient: Total time spent is greater than 50% in coordination of care (as documented) at patient's floor/unit and/or counseling patient: Coding Level of Care Code 98348 Subseq Hosp Care Lvl 3 Diagnoses Acute lumbar back pain M54.5 Back pain laterality: midline Sciatica presence: without sciatica T12 compression fracture S22.080A Encounter type: initial encounter UTI (urinary tract infection) N30.00 Hematuria presence: without hematuria Urinary tract infection type: acute cystitis Debility R53.81 Supratherapeutic INR R79.1 AF (paroxysmal atrial fibrillation) I48.0 Vitamin D deficiency E55.9 Diabetes mellitus with chronic kidney disease E11.22; N18.6; Z79.4; Z99.2 Chronic kidney disease stage: on chronic dialysis Diabetes mellitus snf insulin use: with marine oil terminal superintendent use Diabetes mellitus type: type 2 Hypertension I10 Hypertension type: unspecified ESRD (end stage renal disease) on dialysis N18.6; Z99.2 Hypothyroidism E03.9 Hypothyroidism type: acquired Depression F32.9 Active/Remission status: remission status unspecified Depression Type: major depressive disorder Major depression recurrence: unspecified whether recurrent Anemia D64.9 Anemia type: unspecified type Hyperlipidemia E78.5 Hyperlipidemia type: unspecified DVT prophylaxis Z29.9 (1) UTI (urinary tract infection) Hematuria presence: without hematuria Urinary tract infection type: acute cystitis Qualified Code(s): N30.00 - Acute cystitis without hematuria (2) Diabetes mellitus with chronic kidney disease Chronic kidney disease stage: on chronic dialysis Diabetes mellitus marine oil terminal superintendent insulin use: with snf use Diabetes mellitus type: type 2 Qualified Code(s): E11.22 - Type 2 diabetes mellitus with diabetic chronic kidney disease; N18.6 - End stage renal disease; Z79.4 - [facility] (current) use of insulin; Z99.2 - Dependence on renal dialysis (3) T12 compression fracture Encounter type: initial encounter Qualified Code(s): S22.080A - Wedge compression fracture of T11-T12 vertebra, initial encounter for closed fracture (4) Anemia Anemia type: unspecified type Qualified Code(s): D64.9 - Anemia, unspecified (5) Depression Active/Remission status: remission status unspecified Depression Type: major depressive disorder Major depression recurrence: unspecified whether recurrent Qualified Code(s): F32.9 - Major depressive disorder, single episode, unspecified (6) Hyperlipidemia Hyperlipidemia type: unspecified Qualified Code(s): E78.5 - Hyperlipidemia, unspecified (7) Hypothyroidism Hypothyroidism type: acquired Qualified Code(s): E03.9 - Hypothyroidism, unspecified (8) Acute lumbar back pain Back pain laterality: midline Sciatica presence: without sciatica Qualified Code(s): M54.5 - Low back pain (9) Hypertension Hypertension type: unspecified Qualified Code(s): I10 - Essential (primary) hypertension
--- NOTE | 2020-08-25 11:40 | Nephrology Progress Note ---
Date of Service August 25, 2020 Assessment & Plan (1) End stage renal disease: Shauna has ESRD on HD TTS, HTN, DM, A fib admitted to the hospital with back pain secondary to T12 compression fracture and urinary tract infection. she has maturing left upper extremity AV fistula and right IJ tunneled dialysis catheter Currently blood pressure, volume status, electrolyte acceptable. -- Getting dialysis, tolerating well, denies any symptom. -- Dose medications for GFR less than 10, left arm nephrology precaution, renal diet -- continue on physical therapy, waiting on decision to discharge either to rehab or home depending on how much she is able to participate with physical therapy and whether she will be safe to go home. However, pt has home health daily and she feels like she is safe and ready to go home and does not want to go to rehab. Will follow (2) Hypertension: (3) T12 compression fracture: * Appreciate orthopedics input - pain mostly from new L2 fracture. They recommend lumbar support orthotic (4) Urinary tract infection: Admission and Anticipated Discharge Date Admission Date: August 19, 2020 Subjective Shauna was seen and examined during dialysis this morning, has been tolerating dialysis well, blood pressure stable. When back brace, back pain better when she is not moving. Review of Systems Review of Systems: All systems reviewed & are unremarkable except as noted in HPI & below Physical Exam Constitutional: well developed and well nourished; no acute distress Respiratory: normal respiratory effort, lungs clear to auscultation Cardiovascular: RRR, no murmur, no edema Neurologic: moves all extremities and awake; not confused Psychiatric: A+Ox3, euthymic affect Results & Data ([facility]) Vital Signs (Past 12 Hours) Vital Signs Temp Pulse Pulse Resp BP BP BP 08/25/20 10:20 62 123/57 L 08/25/20 10:00 62 117/50 L 08/25/20 09:40 62 116/57 L 08/25/20 09:20 62 120/56 L 08/25/20 09:00 60 122/54 L 08/25/20 08:40 36.7 C 60 08/25/20 07:09 36.6 C 56 L 16 138/72 08/24/20 23:50 36.8 C 62 18 128/62 Pulse Ox 08/25/20 10:20 08/25/20 10:00 08/25/20 09:40 08/25/20 09:20 08/25/20 09:00 08/25/20 08:40 08/25/20 07:09 96 08/24/20 23:50 94 PG Care Time/CCT Total # of Minutes Spent Total Time Spent with Patient: Total time spent is greater than 50% in coordination of care (as documented) at patient's floor/unit and/or counseling patient: Coding Level of Care Code 40096 Subseq Hosp Care Lvl 2 Diagnoses End stage renal disease N18.6 Hypertension I10 Hypertension type: unspecified T12 compression fracture S22.080A Encounter type: initial encounter Urinary tract infection N39.0 Hematuria presence: without hematuria Urinary tract infection type: site unspecified (1) Hypertension Hypertension type: unspecified Qualified Code(s): I10 - Essential (primary) hypertension (2) T12 compression fracture Encounter type: initial encounter Qualified Code(s): S22.080A - Wedge compression fracture of T11-T12 vertebra, initial encounter for closed fracture (3) Urinary tract infection Hematuria presence: without hematuria Urinary tract infection type: site unspecified Qualified Code(s): N39.0 - Urinary tract infection, site not specified
[2020-08-25] MEDS: METOPROLOL TARTRATE 25 MG TAB PO SCH ×2 (13:19→20:27)
[2020-08-25] MEDS: amLODIPine BESYLATE 5 MG TAB PO SCH (13:20)
[2020-08-25] MEDS: hydrALAZINE TAB 50 MG TAB PO SCH ×2 (13:20→20:24)
[2020-08-25] MEDS: WARFARIN SOD 3 MG TAB PO SCH (15:34)
--- NOTE | 2020-08-25 15:47 | Pharmacy Report ---
Pharmacy Glycemic Short Note 2 - Date of Service August 25, 2020 - Glycemic Short BSG Results (Last 24 hours): 08/24/20 08/24/20 08/25/20 16:56 20:37 06:44 Glucose 111 H POC Glucose 210 H 188 H 08/25/20 08/25/20 07:25 13:18 Glucose POC Glucose 117 H 96 ASSESSMENT: 08/25: * Patient's BSGs continue to be relatively well-controlled on current regimen. * No adjustments required at this time. 08/23 * Patient received total of 19 units of insulin yesterday, of which 8 were basal insulin * Fasting BSG 75 mg/dL - will decrease basal more for tonight 0-5 units based upon BSG * Continue same CF/CR 08/22 * Patient received total of 16 units of insulin yesterday, of which 10 were basal * Fasting BSG 85 mg/dL - will decrease parameters * Provider adjusting CF/CR last evening / continue same for now PLAN FOR INPATIENT GLYCEMIC CONTROL: * Basal insulin: 0-5 units HS * Bolus insulin: continue * NovoLog per scale ACHS or Q6hrs while NPO * Goal Range: Low 110 mg/dL - High 140 mg/dL * Correction Factor: 25 mg/dL/unit * Nutritional / Prandial insulin per carb ratio of 1 unit per 9 grams CHO consumed PLAN FOR DISCHARGE: * A1c of 6.9% on admission - indicates adequate control * Patient with very poor oral intake on admission / would recommend dosage decrease on discharge if PO intake does not improve
[2020-08-25] MEDS: ATORVASTATIN 10 MG TAB PO SCH (20:26)
[2020-08-25] MEDS: INSULIN GLARGINE SOLOSTAR 100 UNITS/ML 3 ML PEN SQ SCH (20:44)
[2020-08-26] MEDS: LEVOTHYROXINE SODIUM 112 MCG TABLET PO SCH (06:08)
[2020-08-26 08:44] LABS: Basophils # (auto) 0.03 K/uL (0-0.2); Basophils % (auto) 0.4 %; Eosinophils # (auto) 0.38 K/uL (0-0.5); Eosinophils % (auto) 4.6 %; Hematocrit (blood only) 31.5 % (37-47); Hemoglobin 10.2 g/dL (12.0-16.0); Immature Granulocytes # (auto) 0.05 K/uL (0.00-0.02); Immature Granulocytes % (auto) 0.6 %; Lymphocytes # (auto) 2.26 K/uL (1.2-3.4); Lymphocytes % (auto) 27.3 %; Mean Corpuscular Hemoglobin 34.1 pg (25-34); Mean Corpuscular Hgb Conc 32.4 g/dL (32-36); Mean Corpuscular Volume 105.4 fL (80-100); Mean Platelet Volume 9.1 fL (7.4-10.4); Monocytes # (auto) 1.11 K/uL (0.11-0.59); Monocytes % (auto) 13.4 %; Neutrophils # (auto) 4.45 K/uL (1.4-6.5); Neutrophils % (auto) 53.7 %; Platelet Count 242 K/uL (130-400); RDW Coefficient of Variation 15.1 % (11.5-14.5); RDW Standard Deviation 57.2 fL (36.4-46.3); Red Blood Count 2.99 M/uL (4.2-5.4); White Blood Count 8.28 K/uL (4.8-10.8)
[2020-08-26] MEDS: METOPROLOL TARTRATE 25 MG TAB PO SCH (08:56)
[2020-08-26] MEDS: amLODIPine BESYLATE 5 MG TAB PO SCH (08:58)
[2020-08-26] MEDS: SERTRALINE HCL 50 MG TABLET PO SCH (08:58)
[2020-08-26] MEDS: CALCIUM CARBONATE 1250MG TAB PO SCH ×2 (08:59→13:03)
[2020-08-26] MEDS: NEPHROCAPS PO SCH (08:59)
[2020-08-26] MEDS: CEROVITE ADV FORMULA TAB PO SCH (08:59)
[2020-08-26] MEDS: GABAPENTIN 100 MG CAP PO SCH (08:59)
[2020-08-26] MEDS ORDERED: ERTAPENEM SODIUM 500 MG in SODIUM CHLORIDE 0.9% 50 ML IV ONE (09:00)
[2020-08-26] MEDS: CHOLECALCIFEROL 1,000 UNITS 25 MCG TAB PO SCH (09:00)
[2020-08-26] MEDS: hydrALAZINE TAB 50 MG TAB PO SCH (09:00)
[2020-08-26] MEDS: INSULIN ASPART 100 UNITS/ML 3 ML PEN SC SCH ×2 (09:01→13:02)
[2020-08-26 09:03] LABS: INR 1.4 (0.9-1.1); Prothrombin Time 14.6 Seconds (9.0-12.0)
[2020-08-26] MEDS: MUPIROCIN 2% OINT 22 GM TUBE EXT SCH (09:05)
[2020-08-26] MEDS: DOCUSATE SODIUM 100 MG CAP PO SCH (09:18)
[2020-08-26 09:33] LABS: Albumin Level 2.6 gm/dl (3.4-5.0); BUN Creatinine Ratio 4.9 (10-20); Calcium 8.8 mg/dl (8.5-10.1); Creatinine Clr Calc Pharmacy 9.1 ml/min; Est GFR (African American) 8.9; Est GFR (Non-African American) 7.7; Phosphorus 2.8 mg/dl (2.5-4.9); Potassium 3.9 mmol/L (3.5-5.1)
[2020-08-26] MEDS: FUROSEMIDE 20 MG TAB PO SCH (11:07)
--- NOTE | 2020-08-26 11:51 | Nephrology Progress Note ---
Date of Service August 26, 2020 Assessment & Plan (1) End stage renal disease: Shauna has ESRD on HD TTS, HTN, DM, A fib admitted to the hospital with back pain secondary to T12 compression fracture and urinary tract infection. she has maturing left upper extremity AV fistula and right IJ tunneled dialysis catheter. Currently blood pressure, volume status, electrolyte acceptable. Had dialysis yesterday, tolerating well, denies any symptom. -- dialysis tomorrow -- Dose medications for GFR less than 10, left arm nephrology precaution, renal diet -- continue on physical therapy, waiting on decision to discharge either to rehab or home depending on how much she is able to participate with physical therapy and whether she will be safe to go home. However, pt has home health daily and she feels like she is safe and ready to go home and does not want to go to rehab. Will follow (2) Hypertension: (3) T12 compression fracture: * Appreciate orthopedics input - pain mostly from new L2 fracture. They recommend lumbar support orthotic (4) Urinary tract infection: Admission and Anticipated Discharge Date Admission Date: August 19, 2020 Subjective Shauna was seen and examined this morning. Denies any symptoms, appetite decent. Wearing back brace, back pain better when she is not moving. Doing PT but requiring 2 person to help her move. Review of Systems Review of Systems: All systems reviewed & are unremarkable except as noted in HPI & below Physical Exam Constitutional: well developed and well nourished; no acute distress Respiratory: normal respiratory effort, lungs clear to auscultation Cardiovascular: RRR, no murmur, no edema Neurologic: moves all extremities and awake; not confused Psychiatric: A+Ox3, euthymic affect Results & Data ([facility]) Vital Signs (Past 12 Hours) Vital Signs Temp Pulse Pulse Resp BP BP Pulse Ox 08/26/20 11:01 36.7 C 51 L 59 L 18 151/66 H 122/47 L 93 08/26/20 07:16 36.7 C 51 L 18 122/47 L 93 PG Care Time/CCT Total # of Minutes Spent Total Time Spent with Patient: Total time spent is greater than 50% in coordination of care (as documented) at patient's floor/unit and/or counseling patient: Coding Level of Care Code 87090 Subseq Hosp Care Lvl 2 Diagnoses End stage renal disease N18.6 Hypertension I10 Hypertension type: unspecified T12 compression fracture S22.080A Encounter type: initial encounter Urinary tract infection N39.0 Hematuria presence: without hematuria Urinary tract infection type: site unspecified (1) Urinary tract infection Hematuria presence: without hematuria Urinary tract infection type: site unspecified Qualified Code(s): N39.0 - Urinary tract infection, site not specified (2) T12 compression fracture Encounter type: initial encounter Qualified Code(s): S22.080A - Wedge co mpression fracture of T11-T12 vertebra, initial encounter for closed fracture (3) Hypertension Hypertension type: unspecified Qualified Code(s): I10 - Essential (primary) hypertension
--- NOTE | 2020-08-26 13:02 | Discharge Summary ---
Date of Service August 26, 2020 Admission HPI Per Admitting Provider 89-year-old female who has a history of dialysis who presented to the emergency department for generalized weakness. The patient has been experiencing very severe back pain. She was seen in our facility recently for this back pain and had a work-up which included radiographic studies showing a T12 compression fracture. She does say her back pain is moderate to severe at times worse with position improved with rest. Ever since that time she is been having severe pain and difficulty ambulating. Her caregiver did present to the emergency department with her and states that she is having very severe back pain but also notes that she has been having cloudy urine and decreased urine output. Patient's caregiver states she has had a purulent urethral discharge swelling her undergarments and making the toilet cloudy which is unusual for her this was very foul-smelling The pt was seen by her limousine rental clerk today and although c/o palpitations no intervention was recommended. The patient denies having any chest pain at this time. She denies having any abdominal pain. Principal Diagnosis thoracic vertebral fracture Discharge Exam Constitutional well developed and well nourished; no acute distress Eyes PERRL, conjunctivae normal, anicteric sclerae ENMT Mouth: oral mucous membranes not dry Respiratory normal respiratory effort; no respiratory distress and no labored breathing Auscultation: lungs clear to auscultation bilaterally; no crackles, no rales, no rhonchi and no wheezes Cardiovascular Rate/Rhythm: regular rate and regular rhythm Heart Sounds: no murmur and no cardiac rub Vessels: normal peripheral pulses and radial pulses present; no JVD Extremities: no edema Gastrointestinal (Abdomen) Inspection/Auscultation: abdomen normal to inspection and normal bowel sounds; abdomen not distended Percussion/Palpation: abdomen soft; abdomen nontender, no guarding, abdomen not rigid and no hepatosplenomegaly Musculoskeletal Head/Neck/Chest: normocephalic and head atraumatic Spine: no cervical spinal tenderness, no cervical muscular tenderness, no thoracic spinal tenderness and no lumbar spinal tenderness Skin no rashes, warm and dry Neurologic CN's II-XI intact bilaterally and moves all extremities Motor/Sensory: no tremor and no sensory deficit Psychiatric Orientation: alert, oriented to person, oriented to place and oriented to time Apperance: appropriately groomed; not disheveled Affect: euthymic affect; no anxious affect and no tearful affect Genitourinary no CVA tenderness Discharge Data Allergies Allergy/AdvReac Type Severity Reaction Status Date / Time No Known Allergies Allergy Verified 08/19/20 15:08 Consultations 08/19/20 15:33 ED Decision to Admit Stat 08/19/20 18:07 Consult Nephrology Routine 08/20/20 15:35 Consult Orthopedic Surgery Routine Ordered Studies 08/19/20 16:16 CT abd pelvis oral con only Stat 08/19/20 18:07 CT lumbar spine wo con Stat Hospital Course (1) Acute lumbar back pain: Denies pain, states brace helping significantly cont lidocaine patches stop opiates (2) T12 compression fracture: CT A/P and Lumbar Spine: acute superior endplate compression fracture of L2 with minimal loss of height, and acute to subacute superior endplate compression fracture of T12. Loss of height has modestly increased from older prior examinations. No retropulsed fragments. Paravertebral soft tissue edema at T12 and L2 fracture levels. Brace placed Ortho spine recommended non-operative management Orthotics recommended LSO to be worn when up and walking stop oxycodone (3) UTI (urinary tract infection): Urine culture with ESBL E. Coli as well as Gamma Strep not Enterococcus (40k CFU) -- sensitive to Ertapenem (on day 6 of therapy) Instructions to give additional 125 mg IV of Ertapenem following HD if dialysis is performed within 6 hours of daily administered dose Completed day 7 today Stop ertapenem (4) Debility: Will have home health aid present during all awake hours Patient does not make much urine so does not need to get up in middle of night Will need continued PT and OT at home (5) Supratherapeutic INR: Patient's INR was supratherapeutic on admission- her Coumadin was held resumed 08/22 at 2mg daily Increased coumadin 3mg PO daily but INR still 1.4 will give her 3mg PO four times per week and 4mg PO three times per week. 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 Did receive 1 dose of EPO on 08/20 as per nephrology Iron studies c/w anemia of chronic disease - iron 54, TIBC 138, Transferrin 125, Transferrin % Sat 31 B12 715, Folate >24.00 Does have notable heterogenous and nodular liver suggestive of cirrhosis on CT scan-macrocytosis could be from liver disease (14) Hyperlipidemia: Continue atorvastatin (15) DVT prophylaxis: Accepted at [facility] but patient refusing. POA is shared with anthony Gutierrez (1/3 siblings) Anthony Waters will have home health aids present during all awake hours Total Time Total Time Spent Total Time Spent (In Minutes): 60 minutes Total Time Includes: Examination of the Patient, Discharge Planning, Medication Reconciliation and Communication With Other Providers Discharge Plan Discharge Items Patient Disposition: Home - Home Health Services Reason For Visit: BACK PAIN, DYSURIA Discharge Diagnosis: 1. thoracic compression fracture 2. ESBL Urinary tract infection 3. debility 4. subtherapeutic INR Condition on Discharge: Fair Activity: Per Instructions section Non-emergency contact: Primary Care Provider Call non-emergency contact if: you have any medication questions Follow-up/Referrals: Mauri Hinojosa MD [Primary Care Provider] - Diet: Carb Consistent or DM2 and Dialysis Renal Addtl Attending Provider Instructions: 1. Continue physical therapy 2. Continue occupational therapy 3. You will have extra help at home later into the night. Your home health aide will help you into bed at night. 4. Follow up with your primary care doctor within a week 5. Continue your regular HD schedule Monday, and Monday 6. Stop taking lantus. In the hospital, your blood sugar has been running low. 7. You need to check your blood sugar three times per day before meals and at bedtime. If your blood sugar is 140-180, take one unit If your blood sugar is 181-220, take two units If your blood sugar is 221-260, take three units If your blood sugar is 261-300, take four units If your blood sugar is 301-340, take five units If your blood sugar is 341-380, take six units If your blood sugar is greater than 380, call your primary care physician. 8. Stop taking oxycodone 9. Take warfarin 4mg Monday, , Monday 10. I sent a new prescription for warfarin 3mg to your pharmacy -- take warfarin 3mg on Monday, Monday, Monday and Monday 11. Have your INR checked tomorrow. Your primary care doctor will need to adjust your warfarin dose according to your INR levels We have recommended strongly that you discharge to a jail facility where you can have physical therapy. You have refused to be placed into any facility. For this reason, your daughter Evelin has made accommodations for your home health aid to stay for extended hours, during all of your awake time. It has been very nice getting to know you. Please return to the ER if you have any issues at all. Pending Studies at Discharge: Yes Studies:: INR Stand-Alone Forms: [facility], Smoking Cessation Medications and DC Order Prescriptions: New warfarin 3 mg Tablet 3 mg PO 4XWK 30 Days Qty: 30 RF: 0 warfarin [Jantoven] 1 mg Tablet 4 mg PO 3XWK 30 Days Qty: 30 RF: 0 insulin aspart U-100 [Novolog Flexpen U-100 Insulin] 100 unit/mL (3 mL) Insulin Pen See Rx Instructions .ROUTE .COMPLEX Qty: 3 RF: 0 GlucaGen Diagnostic Kit 1 mg/mL Recon Soln 1 mg subcut UD PRN (Reason: hypoglycemia) Qty: 1 RF: 0 Desenex 2 % Powder 1 applic EXT PRN PRN (Reason: rash) Qty: 43 RF: 0 cholecalciferol (vitamin D3) 25 mcg (1,000 unit) Capsule 1,000 unit PO QAM Qty: 30 RF: 0 glucose [Dex4 Glucose] 4 gram Tablet,Chewable 4 g PO UD PRN (Reason: hypoglycemia) Qty: 30 RF: 0 dextrose 50 % in water (D50W) Syringe 25 - 50 ml IV UD PRN (Reason: hypoglycemia) Qty: 250 RF: 0 Continued (DME) pen needle, diabetic [BD Ultra-Fine [place] Pen Needle] 32 gauge x 5/32" needle See Dose Instructions .ROUTE .MEDSUPPLY Qty: 400 RF: 3 (DME) lancets [OneTouch Delica Plus Lancet] 33 gauge misc See Rx Instructions .ROUTE .MEDSUPPLY Qty: 400 RF: 0 (DME) OneTouch Verio test strips Strip See Dose Instructions .ROUTE .MEDSUPPLY Qty: 400 RF: 3 Renal Caps 1 mg capsule 1 cap PO QAM 30 Days Qty: 90 RF: 3 acetaminophen 325 mg tablet 650 mg PO BID PRN (Reason: fever or pain) RF: 0 amlodipine 10 mg tablet 10 mg PO DAILY 90 Days Qty: 90 RF: 3 atorvastatin 10 mg tablet 10 mg PO HS Qty: 90 RF: 3 furosemide 20 mg tablet 20 mg PO BID 30 Days Qty: 60 RF: 5 hydralazine 100 mg tablet 100 mg PO BID Qty: 60 RF: 5 metoprolol tartrate 25 mg tablet 25 mg PO BID Qty: 46 RF: 5 sertraline 25 mg tablet 25 mg PO DAILY Qty: 30 RF: 5 levothyroxine 112 mcg tablet 112 mcg PO QAM Qty: 30 RF: 5 (DME) FreeStyle Frieda 14 Day Sensor Kit See Rx Instructions [id number] .MEDSUPPLY Qty: 1 RF: 11 (DME) FreeStyle Frieda 14 Day [place] Misc See Rx Instructions [id number] .MEDSUPPLY Qty: 1 RF: 0 gabapentin 300 mg capsule 300 mg PO QPM RF: 0 lidocaine [Aspercreme (lidocaine HCl)] 4 % adhesive patch,medicated 1 patch topical DAILY Qty: 10 RF: 5 gabapentin 100 mg capsule 100 mg PO DAILY RF: 0 Aspercreme (lidocaine HCl) 4 % liquid roll-on 1 ea topical DIRECTED PRN (Reason: Pain) RF: 0 PreserVision AREDS [id number] Capsule 1 cap PO BID RF: 0 bisacodyl [Dulcolax (bisacodyl)] 10 mg Suppository 10 mg NC UD PRN (Reason: Constipation) RF: 0 docusate sodium [Colace] 100 mg Capsule 100 mg PO DAILY RF: 0 calcium carbonate 500 mg calcium (1,250 mg) Tablet,Chewable 500 mg PO TIDM RF: 0 Biofreeze (menthol) 4 % Gel 1 applic TOPICAL BID RF: 0 Discontinued Lantus Solostar U-100 Insulin 100 unit/mL (3 mL) insulin pen See Rx Instructions subcut DAILY 90 Days Qty: 30 RF: 0 warfarin 4 mg tablet 4 mg PO PM RF: 0 insulin aspart U-100 [Novolog Flexpen U-100 Insulin] 100 unit/mL (3 mL) insulin pen 40 units SQ TIDM RF: 0 oxycodone 5 mg tablet 5 mg PO Q4H PRN (Reason: pain) Qty: 15 RF: 0 Discharge Orders: Discharge Order (Routine); Ordered 08/26/20 Ordered By: Kimmie Frye/Other Patient Handouts: Managing Type 2 Diabetes Admission Data Admit Date/Time: 08/19/20 16:02 Attending Provider: Kimmie Damon Admit Provider: Jorje Stephens Primary Care Provider: Mauri Hinojosa V. Other Providers: Jorje Stephens ; Sabino Palma ; [facility] ; Portillo Storey ; Yesika [facility] Other Interventions: Discharge Summary Assessment (RN) Last Done: 08/26/20 11:01 Coding Level of Care Code D/C Day Management >30 mins Diagnoses Acute lumbar back pain M54.5 Back pain laterality: midline Sciatica presence: without sciatica T12 compression fracture S22.080A Encounter type: initial encounter UTI (urinary tract infection) N30.00 Urinary tract infection type: acute cystitis Hematuria presence: without hematuria Debility R53.81 Supratherapeutic INR R79.1 AF (paroxysmal atrial fibrillation) I48.0 Vitamin D deficiency E55.9 Diabetes mellitus with chronic kidney disease E11.22; N18.6; Z79.4; Z99.2 Diabetes mellitus type: type 2 Diabetes mellitus snf insulin use: with it applications manager use Chronic kidney disease stage: on chronic dialysis Hypertension I10 Hypertension type: unspecified ESRD (end stage renal disease) on dialysis N18.6; Z99.2 Hypothyroidism E03.9 Hypothyroidism type: acquired Depression F32.9 Depression Type: major depressive disorder Major depression recurrence: unspecified whether recurrent Active/Remission status: remission status unspecified Anemia D64.9 Anemia type: unspecified type Hyperlipidemia E78.5 Hyperlipidemia type: unspecified DVT prophylaxis Z29.9
[2020-08-26] MEDS ORDERED: WARFARIN SOD 1 MG TAB PO SCH (16:00)
== END 2020-08-26 14:21 | disposition home health service (06) | DRG 542 ==
LOC: ED 11:36 → 2W 16:02 → SUATTDRO 16:02 → 2W 17:20

== ENCOUNTER 2020-08-28 11:21 | Observation (INO) ==
--- NOTE | 2020-08-28 11:45 | Emergency Department Note ---
Impression & Plan Weakness, ESRD on dialysis ED Provider Note NAME: KAIN GANNON AGE: 89 SEX: F : 1930 ARRIVES VIA: Walk-In INFORMANT: Patient, ED PROVIDER(S): Colt Limon MD Chief Complaint: Weakness HPI: Patient does present from home and with home health due to concern for increasing weakness. The patient did have a fall yesterday over the patient states that after trying to get up she had slid down out of her place that she was sitting. The patient does not complain of any headache LOC, neck pain, or acute confusion. Home health does report that there has been increasing difficulty in having the patient perform her ADLs. The patient took greater than an hour just to get up from bed today. Patient does have increasing generalized weakness but no focal deficits noted per home health. Patient states that her appetite and sleep have been appropriate. Patient has been compliant with her medications. Patient denies any fevers, chills, chest pains, or shortness of breath. The patient denies any abdominal pain, nausea, or vomiting. ROS: See HPI for pertinent positives and negatives. A total of 10 systems were reviewed and otherwise negative. Past medical history: See below Surgical history: See below Social history: See below Physical Exam: GENERAL: NAD, non-toxic. Wearing a mask. EYE EXAM: Normal conjunctiva. PERRL, no anisocoria and EOM's grossly intact w/o pain. Head: Normocephalic atraumatic. NECK: Supple, no nuchal rigidity, no adenopathy, non-tender. No signs of meningismus. Negative midline C-spine TTP. Chest: Permacath noted in right chest clean dry and intact. LUNGS: Clear to auscultation. Normal chest wall mechanics. HEART: NSR, no MRG. ABDOMEN: Abdomen soft, non-tender, normo-active bowel sounds, no masses, no rebound or guarding. BACK: No CVA TTP. SKIN: No rashes and no bruising. UPPER EXTREMITIES: Upper extremities are grossly normal. Left upper extremity with palpable AV thrill. LOWER EXTREMITIES: Grossly normal, no obvious deformity. NEURO EXAM: A&O x3, cranial nerves II-XII grossly intact, normal speech, moves all 4 extremities on command w/o issue. Differential diagnoses: Infection, dehydration, metabolic abnormality, hypo/hyperglycemia, electrolyte disturbance, anemia, hypoxia, cardiac sources, intracerebral event, toxicologic, neurologic, as well as other pathologies. Course: Patient was seen and evaluated the bedside. Full history physical exam was performed. EKG: Indication: Weakness Junctional rhythm, rate of 60, normal QRS, normal axis, Q wave in lead III and aVF. No obvious ST changes. Imaging Studies: Radiology results as stated below per my review in the radiologist's interpretation: SINGLE VIEW CHEST CLINICAL HISTORY: Generalized weakness. FINDINGS: 2 AP, portable, semierect chest radiographs are compared to study dated 08/19/2020 and correlated with chest CT dated 03/05/2015. The examination is degraded by portable technique and patient rotation. A right internal jugular central venous catheter is unchanged in position. The heart is enlarged noting atherosclerotic calcification of the thoracic aorta. The pulmonary vasculature is noncongested. Chronic interstitial thickening is similar to previous. There i s a left pleural effusion with left basilar consolidation. No pneumothorax is seen. The skeletal structures are osteopenic. There is chronic deformity of the right proximal humerus. A vascular stent projects over the left axilla. IMPRESSION: 1. Cardiomegaly without radiographic evidence of congestive failure. 2. Small left pleural effusion with left bibasilar consolidation. This is unchanged from prior studies and likely represents scarring/atelectasis. Clinical correlation will be required. ACT 112: Negative or not required by law. Electronically signed by: Capo Goff M.D. 08/28/2020 12:06 PM Dictated: 08/28/20 1203 Transcribed: 08/28/20 1203 Cardiac monitoring: An order was placed for continuous cardiac monitoring. The monitor shows a rate of 55 with sinus bradycardia rhythm. MDM: Patient did present with concern for increasing weakness from home. Patient did a blood work completed along with a chest x-ray EKG. Patient reportedly did not want a go to [facility] but the patient does have a court order instructing the patient to go per the supportive employment case manager. Occupational therapy was ordered. No beds available today at [facility] for rehab. Patient was subsequently admitted to the medicine service. Patient does have a white blood cell count of 12 with hemoglobin of 10. The patient's kidney function does show chronic kidney disease but the patient's potassium is not greater than 5. Past Med/Surg History Medical History Anemia Arthritis Basosquamous carcinoma of skin Chronic kidney disease, stage 3 (moderate) Chronic lower back pain Closed fracture of shaft of humerus (04/09/11) hx right arm Congestive heart failure Depression Diabetic nephropathy ESRD (end stage renal disease) on dialysis [facility] Tues/Thurs/Sat Gout Hematuria hx Hyperlipidemia Hypertension Hypothyroidism Paroxysmal atrial fibrillation Pericardial effusion hx Type 2 diabetes mellitus Urinary tract infection hx Surgical History History of cataract surgery bilateral History of cholecystectomy S/P dialysis catheter insertion S/P dilation and curettage Family History Mother Diabetes Hypertension Macular degeneration Hypothyroidism Denies family history of Ovarian cancer Myocardial infarction Breast cancer Colorectal cancer Social History Smoking Status: Never smoker Second Hand Exposure: No; Hx Alcohol Use: No Hx Substance Use: No Preferred Language: Icelandic Communication Ability: Effective Visual Impairment: No Limitations Hearing Ability: Normal Jointer Operator Required: No Beliefs That Will Affect Care: None marital status: Current Living Situation: Spouse Current Living Situation Comment: [facility] current occupational status: retired How many Children do You have: 1 Other Information That Helps Us Care for You: No Feels Safe at Home: Yes Safety Concerns: Feels Safe At This Time Childhood Exposure to Second-Hand Smoke: No Physical Activity Frequency: Does not Exercise Seatbelt Use: always Assistive Devices: Walker and Wheelchair Allergies Allergies Allergy/AdvReac Type Severity Reaction Status Date / Time No Known Allergies Allergy Verified 08/28/20 12:41 Home Meds Home Medications Medication Instructions Recorded Confirmed PreserVision AREDS 1 cap PO BID 12/17/18 08/28/20 Biofreeze (menthol) 1 applic TOPICAL BID 04/14/20 08/28/20 bisacodyl [Dulcolax (bisacodyl)] 10 mg KS UD PRN 04/14/20 08/28/20 calcium carbonate 500 mg PO TIDM 04/14/20 08/28/20 acetaminophen 325 mg tablet 650 mg PO BID PRN tab 05/27/20 08/28/20 gabapentin 100 mg capsule 100 mg PO QAM cap 08/19/20 08/28/20 gabapentin 300 mg capsule 300 mg PO .SUMOWEFR@HS cap 08/19/20 08/28/20 cholecalciferol (vitamin D3) 1,000 unit PO TUTHSA 08/28/20 08/28/20 furosemide 20 mg PO BIDM 08/28/20 08/28/20 gabapentin 400 mg PO .TUTHSA@HS 08/28/20 08/28/20 lidocaine [Aspercreme (lidocaine 2 patch TOPICAL DAILY PRN 08/28/20 08/28/20 HCl)] sertraline 25 mg PO QAM 08/28/20 08/28/20 Previous Rx's Medication Instructions Recorded amlodipine 10 mg tablet 10 mg PO DAILY 90 Days #90 tab 05/28/20 atorvastatin 10 mg tablet 10 mg PO HS #90 tab 05/28/20 hydralazine 100 mg tablet 100 mg PO BID #60 tab 05/28/20 levothyroxine 112 mcg tablet 112 mcg PO QAM #30 tab 05/28/20 metoprolol tartrate 25 mg tablet 25 mg PO BID #46 tab 05/28/20 BD Ultra-Fine [place] Pen Needle 32 #400 ea NS 05/29/20 gauge x 5/32" OneTouch Delica Plus Lancet 33 #400 ea NS 05/29/20 gauge OneTouch Verio test strips #400 ea NS 05/29/20 flash glucose scanning reader #1 ea 06/03/20 flash glucose sensor #1 ea 06/03/20 vitamin B complex and vitamin C 1 cap PO QAM 30 Days #90 cap 07/23/20 no.20-folic acid 1 mg capsule dextrose 50 % in water (D50W) 25 - 50 ml IV UD PRN #250 ml 08/26/20 glucagon (human recombinant) 1 mg SUBCUT UD PRN #1 ea 08/26/20 [GlucaGen Diagnostic Kit] glucose [Dex4 Glucose] 4 g PO UD PRN #30 tab 08/26/20 insulin aspart U-100 [Novolog See Rx Instructions .ROUTE 08/26/20 Flexpen U-100 Insulin] .COMPLEX #3 ml warfarin 3 mg PO 4XWK 30 Days #30 tab 08/26/20 warfarin [Jantoven] 4 mg PO 3XWK 30 Days #30 tab 08/26/20 Results & Data (ED) Vital Signs Vital Signs - 24 hr 08/28/20 11:25 08/28/20 12:08 08/28/20 13:29 Temperature 36.9 C Temperature Source Oral Pulse Rate 54 L 58 L Pulse Rate from SpO2 Sensor Respiratory Rate 20 15 Respiratory Effort / Characteristics Non-Labored Spontaneous Respiratory Depth Normal Blood Pressure 94/50 L 117/56 L Blood Pressure Mean 64 83 Pulse Oximetry 97 94 96 Oxygen Delivery Method Room Air Room Air Sepsis Recent Fever Within 48 Hours No Sepsis New/Unexplained Change in Mental Status N/A Sepsis Action Taken by Nursing No Action Required 08/28/20 13:30 08/28/20 13:59 Temperature Temperature Source Pulse Rate 59 L Pulse Rate from SpO2 Sensor 59 L Respiratory Rate 16 Respiratory Effort / Characteristics Respiratory Depth Blood Pressure 122/49 L Blood Pressure Mean 66 Pulse Oximetry 96 Oxygen Delivery Method Room Air Sepsis Recent Fever Within 48 Hours Sepsis New/Unexplained Change in Mental Status Sepsis Action Taken by Snf Medications Current Medication List: was personally reviewed by me Laboratory Data Attestation: I reviewed the patient's lab results. Result diagrams: 08/28/20 12:15 08/28/20 12:15 Lab Results 08/28/20 08/28/20 08/28/20 Range/Units 12:15 12:15 12:15 WBC 12.47 H (4.8-10.8) K/uL RBC 3.04 L (4.2-5.4) M/uL Hgb 10.4 L (12.0-16.0) g/dL Hct 31.9 L (37-47) % MCV 104.9 H (80-100) fL MCH 34.2 H (25-34) pg MCHC 32.6 (32-36) g/dL RDW Std Deviation 58.5 H (36.4-46.3) fL RDW Coeff of Jon 15.3 H (11.5-14.5) % Plt Count 271 (130-400) K/uL MPV 9.6 (7.4-10.4) fL Immature Gran % (Auto) 0.7 % Neut % (Auto) 62.6 % Lymph % (Auto) 21.4 % [place] % (Auto) 11.5 % Eos % (Auto) 3.4 % Baso % (Auto) 0.4 % Neut # (Auto) 7.80 H (1.4-6.5) K/uL Lymph # (Auto) 2.67 (1.2-3.4) K/uL [place] # (Auto) 1.43 H (0.11-0.59) K/uL Eos # (Auto) 0.43 (0-0.5) K/uL Baso # (Auto) 0.05 (0-0.2) K/uL Immature Gran # (Auto) 0.09 H (0.00-0.02) K/uL PT 15.2 H (9.0-12.0) Seconds INR 1.5 H (0.9-1.1) Sodium 134 L (136-145) mmol/L Potassium 4.8 (3.5-5.1) mmol/L Chloride 101 (98-107) mmol/L Carbon Dioxide 26 (21-32) mmol/L Anion Gap 7.0 (3-11) BUN 45 H (7-18) mg/dl Creatinine 7.45 H* (0.6-1.2) mg/dl Est Cr Clr Drug Dosing Not Reportable Est GFR ( Amer) 5.1 Est GFR (Non-Af Amer) 4.4 BUN/Creatinine Ratio 5.9 L (10-20) Glucose 176 H (70-99) mg/dl Calcium 8.7 (8.5-10.1) mg/dl Magnesium 2.4 (1.8-2.4) mg/dl Total Bilirubin 0.3 (0.2-1) mg/dl AST 21 (15-37) U/L ALT 17 (12-78) U/L Alkaline Phosphatase 145 H (45-117) U/L Troponin I < 0.015 (0-0.045) ng/ml Total Protein 7.1 (6.4-8.2) gm/dl Albumin 2.9 L (3.4-5.0) gm/dl Globulin 4.2 H (2.5-4.0) gm/dl Albumin/Globulin Ratio 0.7 L (0.9-2) TSH 3.450 (0.300-4.500) uIu/ml Specimen Hemolysis Discharge Plan Visit Data Chief Complaint: Weakness Stated Complaint: WEAKNESS,HAVING TROUBLE MOVING AROUND ED Provider: Colt Limon Discharge Problem: Weakness, ESRD on dialysis Patient Disposition: Admitted As Inpatient Discharge Instructions Interventions: ED Discharge Assessment Last Done: 08/28/20 13:59 Forms Stand Alone Forms: My [facility] Prescriptions Prescriptions: No Action (DME) pen needle, diabetic [BD Ultra-Fine [place] Pen Needle] 32 gauge x 5/32" needle See Dose Instructions .ROUTE .MEDSUPPLY Qty: 400 RF: 3 (DME) lancets [OneTouch Delica Plus Lancet] 33 gauge misc See Rx Instructions .ROUTE .MEDSUPPLY Qty: 400 RF: 0 (DME) OneTouch Verio test strips Strip See Dose Instructions .ROUTE .MEDSUPPLY Qty: 400 RF: 3 Renal Caps 1 mg capsule 1 cap PO QAM 30 Days Qty: 90 RF: 3 acetaminophen 325 mg tablet 650 mg PO BID PRN (Reason: fever or pain) RF: 0 amlodipine 10 mg tablet 10 mg PO DAILY 90 Days Qty: 90 RF: 3 atorvastatin 10 mg tablet 10 mg PO HS Qty: 90 RF: 3 hydralazine 100 mg tablet 100 mg PO BID Qty: 60 RF: 5 metoprolol tartrate 25 mg tablet 25 mg PO BID Qty: 46 RF: 5 levothyroxine 112 mcg tablet 112 mcg PO QAM Qty: 30 RF: 5 (DME) FreeStyle Frieda 14 Day Sensor Kit See Rx Instructions [id number] .MEDSUPPLY Qty: 1 RF: 11 (DME) FreeStyle Frieda 14 Day [place] Misc See Rx Instructions [id number] .MEDSUPPLY Qty: 1 RF: 0 gabapentin 300 mg capsule 300 mg PO .SUMOWEFR@HS RF: 0 gabapentin 100 mg capsule 100 mg PO QAM RF: 0 warfarin 3 mg Tablet 3 mg PO 4XWK 30 Days Qty: 30 RF: 0 warfarin [Jantoven] 1 mg Tablet 4 mg PO 3XWK 30 Days Qty: 30 RF: 0 insulin aspart U-100 [Novolog Flexpen U-100 Insulin] 100 unit/mL (3 mL) Insulin Pen See Rx Instructions .ROUTE .COMPLEX Qty: 3 RF: 0 GlucaGen Diagnostic Kit 1 mg/mL Recon Soln 1 mg subcut UD PRN (Reason: hypoglycemia) Qty: 1 RF: 0 glucose [Dex4 Glucose] 4 gram Tablet,Chewable 4 g PO UD PRN (Reason: hypoglycemia) Qty: 30 RF: 0 dextrose 50 % in water (D50W) Syringe 25 - 50 ml IV UD PRN (Reason: hypoglycemia) Qty: 250 RF: 0 PreserVision AREDS [id number] Capsule 1 cap PO BID RF: 0 bisacodyl [Dulcolax (bisacodyl)] 10 mg Suppository 10 mg KS UD PRN (Reason: Constipation) RF: 0 calcium carbonate 500 mg calcium (1,250 mg) Tablet,Chewable 500 mg PO TIDM RF: 0 Biofreeze (menthol) 4 % Gel 1 applic TOPICAL BID RF: 0 lidocaine [Aspercreme (lidocaine HCl)] 4 % Adhesive Patch,Medicated 2 patch TOPICAL DAILY PRN (Reason: Pain) RF: 0 gabapentin 400 mg capsule 400 mg PO .TUTHSA@HS RF: 0 sertraline 25 mg tablet 25 mg PO QAM RF: 0 cholecalciferol (vitamin D3) 25 mcg (1,000 unit) capsule 1,000 unit PO TUTHSA RF: 0 furosemide 20 mg tablet 20 mg PO BIDM RF: 0 Referrals Referrals: Mauri Hinojosa MD [Primary Care Provider] -
--- NOTE | 2020-08-28 12:07 | XRay Report ---
SINGLE VIEW CHEST CLINICAL HISTORY: Generalized weakness. FINDINGS: 2 AP, portable, semierect chest radiographs are compared to study dated 08/19/2020 and chun elated with chest CT dated 03/05/2015. The examination is degraded by portable technique and patient ro tation. A right internal jugular central venous catheter is unchanged in position. The heart is enl arged noting atherosclerotic calcification of the thoracic aorta. The pulmonary vasculature is noncon gested. Chronic interstitial thickening is similar to previous. There is a left pleural effusion with left basilar consolidation. No pneumothorax is seen. The skeletal structures are osteopenic. There i s chronic deformity of the right proximal humerus. A vascular stent projects over the left axilla. IMPRESSION: 1. Cardiomegaly without radiographic evidence of congestive failure. 2. Small left pleural effusion with left bibasilar consolidation. This is unchanged from prior studie s and likely represents scarring/atelectasis. Clinical correlation will be required. ACT 112: Negative or not required by law. Electronically signed by: Capo Goff M.D. 08/28/2020 12:06 PM
[2020-08-28 12:34] LABS: Basophils # (auto) 0.05 K/uL (0-0.2); Basophils % (auto) 0.4 %; Eosinophils # (auto) 0.43 K/uL (0-0.5); Eosinophils % (auto) 3.4 %; Hematocrit (blood only) 31.9 % (37-47); Hemoglobin 10.4 g/dL (12.0-16.0); Immature Granulocytes # (auto) 0.09 K/uL (0.00-0.02); Immature Granulocytes % (auto) 0.7 %; Lymphocytes # (auto) 2.67 K/uL (1.2-3.4); Lymphocytes % (auto) 21.4 %; Mean Corpuscular Hemoglobin 34.2 pg (25-34); Mean Corpuscular Hgb Conc 32.6 g/dL (32-36); Mean Corpuscular Volume 104.9 fL (80-100); Mean Platelet Volume 9.6 fL (7.4-10.4); Monocytes # (auto) 1.43 K/uL (0.11-0.59); Monocytes % (auto) 11.5 %; Neutrophils % (auto) 62.6 %; Platelet Count 271 K/uL (130-400); RDW Coefficient of Variation 15.3 % (11.5-14.5); RDW Standard Deviation 58.5 fL (36.4-46.3); Red Blood Count 3.04 M/uL (4.2-5.4); White Blood Count 12.47 K/uL (4.8-10.8)
[2020-08-28 12:46] LABS: INR 1.5 (0.9-1.1); Prothrombin Time 15.2 Seconds (9.0-12.0)
[2020-08-28 13:02] LABS: Alanine Aminotransferase 17 U/L (12-78); Albumin Globulin Ratio 0.7 (0.9-2); Albumin Level 2.9 gm/dl (3.4-5.0); Alkaline Phosphatase 145 U/L (45-117); Aspartate Aminotransferase 21 U/L (15-37); BUN Creatinine Ratio 5.9 (10-20); Bilirubin,Total 0.3 mg/dl (0.2-1); Blood Urea Nitrogen 45 mg/dl (7-18); Calcium 8.7 mg/dl (8.5-10.1); Carbon Dioxide 26 mmol/L (21-32); Chloride 101 mmol/L (98-107); Est GFR (African American) 5.1; Est GFR (Non-African American) 4.4; Globulin 4.2 gm/dl (2.5-4.0); Glucose 176 mg/dl (70-99); Magnesium 2.4 mg/dl (1.8-2.4); Potassium 4.8 mmol/L (3.5-5.1); Sodium 134 mmol/L (136-145); Total Protein 7.1 gm/dl (6.4-8.2); Troponin I < 0.015 ng/ml (0-0.045)
--- NOTE | 2020-08-28 13:37 | History & Physical Report ---
Date of Service August 28, 2020 Assessment & Plan (1) Generalized weakness: Repeat UA given ongoing suprapubic/RLQ pain although would only elect to treat if still positive or WBC uptrending. Otherwise suspect generalized weakness just from prior hospital stay. PT/OT Likely to need inpatient rehabilitation on this occasion (2) RLQ abdominal pain: RLQ and suprapubic tenderness on palpation but mostly on the right side Right-sided tenderness noted on admission previously. Previous cystitis noted on CT but nothing on right side where the majority of her pain is We will repeat UA as above. (3) Diabetes mellitus with diabetic neuropathy: HbA1c 6.9. Hyperglycemia on previous admission with basal dosing of insulin. NovoLog ACHS for correction and carb coverage, add basal if insulin requirement > 10 units/day (4) AF (paroxysmal atrial fibrillation): Currently in normal sinus rhythm. Continue warfarin for anticoagulation -subtherapeutic but was on a low dose during her last admission. We will continue her usual dosing with repeat PT/INR in a.m. (5) ESRD (end stage renal disease) on dialysis: Consult nephrology for ongoing dialysis management -usually has dialysis on Tuesdays, and Saturdays. (6) Hypothyroidism: TSH 3.45 on recent labs. Continue levothyroxine 112 mcg p.o. daily (7) Hypertension: Continue her home regimen of amlodipine 10 mg p.o. daily, Lasix 20 mg p.o. twice daily, hydralazine 100 mg p.o. twice daily (8) Gait disturbance: PT/OT (9) Lower back pain: Continue lidocaine patches Acetaminophen as needed (10) DVT prophylaxis: Subtherapeutic INR however risk of additional anticoagulation outweighs any benefit. Warfarin dosing as above Admission and Anticipated Discharge Date Admission Date: 08/28/2020 History of Present Illness Chief Complaint: Generalized weakness Primary Care Provider: Mauri Hinojosa MD Shauna Pearce is an 89-year-old female who presents to the ER due to generalized weakness. Unable to get much history from the patient but caregiver at bedside reports she has been extremely weak since discharge from last hospitalization. The patient was discharged home just 2 days ago after a fall and thoracic vertebral fracture. Yesterday the patient slid off her bed while sitting. She did not hit her head, reports no injuries from this fall. No chest pain, shortness of breath, dizziness prior to this fall. However this morning Home Health were unable to assist the patient out of bed due to her feeling generally weak. She took approximately an hour to just sits up in her bed today. She reports no unilateral focal weakness or change in sensation, change in speech, vision or hearing. She was placed to have dialysis on but was unable to make it. No fever, chills, new abdominal pain, nausea, vomiting, chest pain, change in bowels, dysuria, melena, shortness of breath, cough, nasal congestion, sinus pain. In the ER she was noted to have an elevated WBC although no infective source identified. She did have previous E. coli ESBL in her urine which was treated last admission with 7 days of IV ertapenem. She does report suprapubic/RLQ pain to palpation although this has been ongoing since her last admission with no acute change. CXR unremarkable for acute etiology. Allergies Allergy/AdvReac Type Severity Reaction Status Date / Time No Known Allergies Allergy Verified 08/28/20 12:41 Home Medications Home Medications Medication Instructions Recorded Confirmed Type PreserVision AREDS 1 cap PO BID 12/17/18 08/28/20 History Biofreeze (menthol) 1 applic TOPICAL BID 04/14/20 08/28/20 History bisacodyl [Dulcolax (bisacodyl)] 10 mg [place] UD PRN 04/14/20 08/28/20 History calcium carbonate 500 mg PO TIDM 04/14/20 08/28/20 History acetaminophen 325 mg tablet 650 mg PO BID PRN tab 05/27/20 08/28/20 History amlodipine 10 mg tablet 10 mg PO DAILY 90 Days #90 tab 05/28/20 08/28/20 Rx atorvastatin 10 mg tablet 10 mg PO HS #90 tab 05/28/20 08/28/20 Rx hydralazine 100 mg tablet 100 mg PO BID #60 tab 05/28/20 08/28/20 Rx levothyroxine 112 mcg tablet 112 mcg PO QAM #30 tab 05/28/20 08/28/20 Rx metoprolol tartrate 25 mg tablet 25 mg PO BID #46 tab 05/28/20 08/28/20 Rx BD Ultra-Fine Belgica Pen Needle 32 #400 ea NS 05/29/20 08/14/20 Rx gauge x 5/32" OneTouch Delica Plus Lancet 33 #400 ea NS 05/29/20 08/14/20 Rx gauge OneTouch Verio test strips #400 ea NS 05/29/20 08/14/20 Rx flash glucose scanning reader #1 ea 06/03/20 08/14/20 Rx flash glucose sensor #1 ea 06/03/20 08/14/20 Rx vitamin B complex and vitamin C 1 cap PO QAM 30 Days #90 cap 07/23/20 08/28/20 Rx no.20-folic acid 1 mg capsule gabapentin 100 mg capsule 100 mg PO QAM cap 08/19/20 08/28/20 History gabapentin 300 mg capsule 300 mg PO .SUMOWEFR@HS cap 08/19/20 08/28/20 History dextrose 50 % in water (D50W) 25 - 50 ml IV UD PRN #250 ml 08/26/20 08/28/20 Rx glucagon (human recombinant) 1 mg SUBCUT UD PRN #1 ea 08/26/20 08/28/20 Rx [GlucaGen Diagnostic Kit] glucose [Dex4 Glucose] 4 g PO UD PRN #30 tab 08/26/20 08/28/20 Rx insulin aspart U-100 [Novolog See Rx Instructions .ROUTE 08/26/20 08/28/20 Rx Flexpen U-100 Insulin] .COMPLEX #3 ml warfarin 3 mg PO 4XWK 30 Days #30 tab 08/26/20 08/28/20 Rx warfarin [Jantoven] 4 mg PO 3XWK 30 Days #30 tab 08/26/20 08/28/20 Rx cholecalciferol (vitamin D3) 1,000 unit PO TUTHSA 08/28/20 08/28/20 History furosemide 20 mg PO BIDM 08/28/20 08/28/20 History gabapentin 400 mg PO .TUTHSA@HS 08/28/20 08/28/20 History lidocaine [Aspercreme (lidocaine 2 patch TOPICAL DAILY PRN 08/28/20 08/28/20 History HCl)] sertraline 25 mg PO QAM 08/28/20 08/28/20 History Past Med/Surg History Medical History Anemia Arthritis Basosquamous carcinoma of skin Chronic kidney disease, stage 3 (moderate) Chronic lower back pain Closed fracture of shaft of humerus (04/09/11) hx right arm Congestive heart failure Depression Diabetic nephropathy ESRD (end stage renal disease) on dialysis [facility] Tues/Thurs/Sat Gout Hematuria hx Hyperlipidemia Hypertension Hypothyroidism Paroxysmal atrial fibrillation Pericardial effusion hx Type 2 diabetes mellitus Urinary tract infection hx Surgical History History of cataract surgery bilateral History of cholecystectomy S/P dialysis catheter insertion S/P dilation and curettage Family History Mother Diabetes Hypertension Macular degeneration Hypothyroidism Denies family history of Ovarian cancer Myocardial infarction Breast cancer Colorectal cancer Social History Smoking Status: Never smoker Second Hand Exposure: No; Hx Alcohol Use: No Hx Substance Use: No Preferred Language: Italian Communication Ability: Effective Visual Impairment: No Limitations Hearing Ability: Normal Personnel Counselor Required: No Beliefs That Will Affect Care: None marital status: Current Living Situation: Spouse Current Living Situation Comment: [facility] current occupational status: retired How many Children do You have: 1 Other Information That Helps Us Care for You: No Feels Safe at Home: Yes Safety Concerns: Feels Safe At This Time Childhood Exposure to Second-Hand Smoke: No Physical Activity Frequency: Does not Exercise Seatbelt Use: always Assistive Devices: Walker and Wheelchair Review of Systems Review of Systems: All systems reviewed & are unremarkable except as noted in HPI & below Constitutional: + fatigue Eyes: no problem reported Respiratory: no problem reported Gastrointestinal: no abdominal pain, no nausea, no vomiting and no diarrhea/loose stools Genitourinary: no dysuria and no urinary frequency Musculoskeletal: + back pain Physical Exam Constitutional: well developed; + not well nourished and no acute distress Eyes: PERRL, conjunctivae normal, anicteric sclerae ENMT: Ears: no external ear abnormality Nose: no external nose abnormality Mouth: + dry oral mucous membranes Respiratory: normal respiratory effort, lungs clear to auscultation Cardiovascular: Rate/Rhythm: regular rate and regular rhythm Heart Sounds: no murmur Vessels: no JVD Extremities: normal capillary refill and + pedal edema (Pitting trace in ankles bilaterally equal); no calf tenderness Gastrointestinal (Abdomen): Inspection/Auscultation: normal bowel sounds; abdomen not distended Percussion/Palpation: + abdomen tender (RLQ and suprapubic tenderness on palpation) and abdomen soft; no guarding and abdomen not rigid Skin: no rashes, warm and dry Neurologic: moves all extremities and awake; not confused Speech / Cognition: normal speech Motor/Sensory: no tremor and no pronator drift Psychiatric: A+Ox3, euthymic affect Results & Data Results & Data ([facility]) Vital Signs (Past 12 Hours) Vital Signs Temp Pulse Resp BP Pulse Ox 08/28/20 12:08 94 08/28/20 11:25 36.9 C 54 L 20 94/50 L 97 Diagnostic Findings SINGLE VIEW CHEST IMPRESSION: 1. Cardiomegaly without radiographic evidence of congestive failure. 2. Small left pleural effusion with left bibasilar consolidation. This is unchanged from prior studies and likely represents scarring/atelectasis. Clinical correlation will be required. ECG Indication: other Rate (beats per minute): 60 Rhythm: normal sinus Findings: + 1st degree AV block; no acute ischemic change Comparison ECG Date: from (08/25/2020) Change: no significant change PG Care Time/CCT Total # of Minutes Spent Total Time Spent with Patient: Total time spent is greater than 50% in coordination of care (as documented) at patient's floor/unit and/or counseling patient: Coding Level of Care Code 45276 OBS Care - Level 3 Diagnoses Generalized weakness R53.1 RLQ abdominal pain R10.31 Diabetes mellitus with diabetic neuropathy E11.40 AF (paroxysmal atrial fibrillation) I48.0 ESRD (end stage renal disease) on dialysis N18.6; Z99.2 Hypothyroidism E03.9 Hypothyroidism type: acquired Hypertension I10 Hypertension type: unspecified Gait disturbance R26.9 Lower back pain M54.5 DVT prophylaxis Z29.9 (1) Hypothyroidism Hypothyroidism type: acquired Qualified Code(s): E03.9 - Hypothyroidism, unspecified (2) Hypertension Hypertension type: unspecified Qualified Code(s): I10 - Essential (primary) hypertension
[2020-08-28] MEDS ORDERED: [UNRECOGNIZED DRUG - OTHER] TOP PRN (14:40)
[2020-08-28] MEDS ORDERED: ACETAMINOPHEN 325 MG TAB PO PRN (14:40)
[2020-08-28] MEDS ORDERED: LIDOCAINE 4% TOP PRN (14:40)
[2020-08-28] MEDS ORDERED: POLYETHYLENE (MIRALAX) 17 GM PACK PO PRN (14:40)
[2020-08-28] MEDS ORDERED: bisacodyL 10 MG SUPP PR PRN (14:40)
[2020-08-28] MEDS ORDERED: WARFARIN SOD 3 MG TAB PO SCH (16:00)
[2020-08-28 16:36] LABS: Hepatitis B Surface Ab Quant < 3.10 mIU/mL (>or=10mIU/mL Immune); Hepatitis B Surface Antibody Non-Immune
[2020-08-28 16:47] LABS: Hepatitis B Surface Antigen Neg (Neg)
[2020-08-28] MEDS: CALCIUM CARBONATE 1250MG TAB PO SCH (17:42)
[2020-08-28] MEDS: FUROSEMIDE 20 MG TAB PO SCH (17:42)
[2020-08-28] MEDS ORDERED: GABAPENTIN 300 MG CAP PO SCH (21:00)
[2020-08-28] MEDS: METOPROLOL TARTRATE 25 MG TAB PO SCH (22:01)
[2020-08-28] MEDS: ATORVASTATIN 10 MG TAB PO SCH (22:01)
[2020-08-28] MEDS: hydrALAZINE TAB 50 MG TAB PO SCH (22:02)
--- NOTE | 2020-08-28 22:29 | Electrocardiogram Report ---
Test Reason : Blood Pressure : / mmHG Vent. 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
[2020-08-29] MEDS: LEVOTHYROXINE SODIUM 112 MCG TABLET PO SCH (05:05)
[2020-08-29 07:27] LABS: INR 1.7 (0.9-1.1); Prothrombin Time 17.9 Seconds (9.0-12.0)
[2020-08-29] MEDS: CALCIUM CARBONATE 1250MG TAB PO SCH ×3 (08:17→16:51)
[2020-08-29] MEDS: LIDOCAINE 5% 1 PATCH TD PRN (08:21)
[2020-08-29] MEDS ORDERED: CHOLECALCIFEROL 1,000 UNITS 25 MCG TAB PO SCH (09:00)
[2020-08-29] MEDS ORDERED: GLUCAGON FOR INJ 1 MG VIAL SQ PRN (10:43)
[2020-08-29] MEDS ORDERED: GLUCOSE 10 TABS/TUBE PO PRN (10:43)
[2020-08-29] MEDS ORDERED: GLUCOSE 40% GEL 15 GM TUBE PO PRN (10:43)
[2020-08-29] MEDS ORDERED: DEXTROSE 50% 50 ML SYRINGE IV PRN (10:43)
[2020-08-29] MEDS ORDERED: CARBOHYDRATES FOR HYPOGLYCEMIA PO PRN (10:43)
--- NOTE | 2020-08-29 13:21 | Nephrology Consultation ---
Date of Consultation August 29, 2020 Assessment & Plan (1) ESRD (end stage renal disease) on dialysis: Will provide HD today according to outpatient orders EDW 90 kg. UF goal 2 kg. Outpatient HD at [facility] TTS 4hr 2K 2Ca F-180NR Continue nephrocaps, renal/diabetic diet Shauna was seen and evaluated during her hemodialysis treatment this morning. She was tolerating HD well. No complications with treatment. Qb at goal via TDC. AVF not cleared for use. (2) Generalized weakness: Evaluation ongoing. Some improvement noted. No obvious infection. Recently completed treatment for UTI. May require extended rehab vs SNF. (3) Anemia: Epogen provided with HD Q Monday while inpatient. (4) T12 compression fracture: Denies significant pain at this time. (5) AF (paroxysmal atrial fibrillation): Anticoagulated with warfarin. History of Present Illness Reason for Consultation: ESRD on HD Requesting Physician: Mike Chavira Attending Physician: Mike Chavira History of Present Illness Mrs. Pearce is an 89 year old white female who is seen at the request of Dr. Chavira to provide inpatient HD and assist w/ medical management. Medical records in the EMR were reviewed today and are summarized as follows: Mrs. Pearce has ESRD due to diabetic nephropathy and hypertensive nephrosclerosis. She dialyzes TTS at [facility] (4hr 2K 2Ca F-180NR EDW 90 kg, R IJ THC, AVF created 05/[address] Westbrook requires transposition). Her medical history is also significant for recurrent UTI, atrial fibrillation (warfarin), hypothyroidism, AODM and iron deficiency anemia. Mrs. Pearce was recently diagnosed w/ T12 compression fracture. She presented to the ED 08/19 for evaluation of back pain, weakness and difficulty ambulating. Evaluation revealed a ESBL E. Coli UTI treated with 7 days of Ertapenem. Shauna was discharged home on 08/26 but returned to the ER yesterday with profound weakness. Allergies Allergy/AdvReac Type Severity Reaction Status Date / Time No Known Allergies Allergy Verified 08/28/20 12:41 Home Medications Home Medications Medication Instructions Recorded Confirmed Type PreserVision AREDS 1 cap PO BID 12/17/18 08/28/20 History Biofreeze (menthol) 1 applic TOPICAL BID 04/14/20 08/28/20 History bisacodyl [Dulcolax (bisacodyl)] 10 mg [place] UD PRN 04/14/20 08/28/20 History calcium carbonate 500 mg PO TIDM 04/14/20 08/28/20 History acetaminophen 325 mg tablet 650 mg PO BID PRN tab 05/27/20 08/28/20 History amlodipine 10 mg tablet 10 mg PO DAILY 90 Days #90 tab 05/28/20 08/28/20 Rx atorvastatin 10 mg tablet 10 mg PO HS #90 tab 05/28/20 08/28/20 Rx hydralazine 100 mg tablet 100 mg PO BID #60 tab 05/28/20 08/28/20 Rx levothyroxine 112 mcg tablet 112 mcg PO QAM #30 tab 05/28/20 08/28/20 Rx metoprolol tartrate 25 mg tablet 25 mg PO BID #46 tab 05/28/20 08/28/20 Rx BD Ultra-Fine Belgica Pen Needle 32 #400 ea NS 05/29/20 08/14/20 Rx gauge x 5/32" OneTouch Delica Plus Lancet 33 #400 ea NS 05/29/20 08/14/20 Rx gauge Mercent CorporationTouch Verio test strips #400 ea NS 05/29/20 08/14/20 Rx flash glucose scanning reader #1 ea 06/03/20 08/14/20 Rx flash glucose sensor #1 ea 06/03/20 08/14/20 Rx vitamin B complex and vitamin C 1 cap PO QAM 30 Days #90 cap 07/23/20 08/28/20 Rx no.20-folic acid 1 mg capsule gabapentin 100 mg capsule 100 mg PO QAM cap 08/19/20 08/28/20 History gabapentin 300 mg capsule 300 mg PO .SUMOWEFR@HS cap 08/19/20 08/28/20 History dextrose 50 % in water (D50W) 25 - 50 ml IV UD PRN #250 ml 08/26/20 08/28/20 Rx glucagon (human recombinant) 1 mg SUBCUT UD PRN #1 ea 08/26/20 08/28/20 Rx [GlucaGen Diagnostic Kit] glucose [Dex4 Glucose] 4 g PO UD PRN #30 tab 08/26/20 08/28/20 Rx insulin aspart U-100 [Novolog See Rx Instructions .ROUTE 08/26/20 08/28/20 Rx Flexpen U-100 Insulin] .COMPLEX #3 ml warfarin 3 mg PO 4XWK 30 Days #30 tab 08/26/20 08/28/20 Rx warfarin [Jantoven] 4 mg PO 3XWK 30 Days #30 tab 08/26/20 08/28/20 Rx cholecalciferol (vitamin D3) 1,000 unit PO TUTHSA 08/28/20 08/28/20 History furosemide 20 mg PO BIDM 08/28/20 08/28/20 History gabapentin 400 mg PO .TUTHSA@HS 08/28/20 08/28/20 History lidocaine [Aspercreme (lidocaine 2 patch TOPICAL DAILY PRN 08/28/20 08/28/20 History HCl)] sertraline 25 mg PO QAM 08/28/20 08/28/20 History Patient History Medical History Anemia Arthritis Basosquamous carcinoma of skin Chronic kidney disease, stage 3 (moderate) Chronic lower back pain Closed fracture of shaft of humerus (04/09/11) hx right arm Congestive heart failure Depression Diabetic nephropathy ESRD (end stage renal disease) on dialysis [facility] Tues/Thurs/Sat Gout Hematuria hx Hyperlipidemia Hypertension Hypothyroidism Paroxysmal atrial fibrillation Pericardial effusion hx Type 2 diabetes mellitus Urinary tract infection hx Surgical History History of cataract surgery bilateral History of cholecystectomy S/P dialysis catheter insertion S/P dilation and curettage Family History Mother Diabetes Hypertension Macular degeneration Hypothyroidism Denies family history of Ovarian cancer Myocardial infarction Breast cancer Colorectal cancer Social History Smoking Status: Never smoker Second Hand Exposure: No; Hx Alcohol Use: No Hx Substance Use: No Preferred Language: Tanzanian Communication Ability: Effective Visual Impairment: No Limitations Hearing Ability: Normal Admin Secretary Required: No Beliefs That Will Affect Care: None marital status: Current Living Situation: Spouse Current Living Situation Comment: [facility] current occupational status: retired How many Children do You have: 1 Other Information That Helps Us Care for You: No Feels Safe at Home: Yes Safety Concerns: Feels Safe At This Time Childhood Exposure to Second-Hand Smoke: No Physical Activity Frequency: Does not Exercise Seatbelt Use: always Assistive Devices: Walker and Wheelchair Review of Systems Review of Systems: All systems reviewed & are unremarkable except as noted in HPI & below Constitutional: no weight loss, no weight gain and no problem reported Eyes: no problem reported Ear, Nose, Mouth, Throat: no problem reported Respiratory: no problem reported Cardiovascular: no problem reported Gastrointestinal: no problem reported Musculoskeletal: no problem reported Integumentary: no problem reported Neurologic: no problem reported Psychiatric: no problem reported Endocrine: no problem reported Hematologic / Lymphatic: no problem reported Physical Exam Constitutional: well developed; no acute distress Eyes: no scleral abnormality and no corneal abnormality ENMT: Mouth: no oral mucosal abnormality and oral mucous membranes not dry Neck: normal visual inspection and trachea midline RIJ TDC Respiratory: normal respiratory effort Auscultation: lungs clear to auscultation bilaterally Cardiovascular: Rate/Rhythm: regular rate Heart Sounds: normal S1 and normal S2 Extremities: + AV fistula; no edema Musculoskeletal: Extremities: no cyanosis and no clubbing Skin: normal turgor; no lesions Neurologic: Motor/Sensory: no tremor and no asterixis Psychiatric: Orientation: alert and oriented x 3 Results & Data ([facility]) Vital Signs (Past 12 Hours) Vital Signs Temp Pulse Pulse Resp BP BP Pulse Ox 08/29/20 12:20 73 126/55 L 08/29/20 12:00 72 130/56 L 08/29/20 11:40 68 121/63 08/29/20 11:20 64 123/52 L 08/29/20 11:00 63 128/53 L 08/29/20 10:40 62 129/55 L 08/29/20 10:20 60 122/55 L 08/29/20 10:00 60 109/63 08/29/20 09:40 61 119/49 L 08/29/20 09:20 59 L 113/50 L 08/29/20 09:16 37.0 C 58 L 08/29/20 09:00 56 L 119/50 L 08/29/20 07:22 36.5 C 57 L 18 130/61 93 Laboratory Results Laboratory Results - last 24 hr 08/28/20 08/29/20 08/29/20 15:26 06:22 13:23 PT 17.9 H INR 1.7 H POC Glucose 114 H Hep Bs Antigen Neg Hep Bs Antibody Non-Immune Hep Bs Antibody, Quant < 3.10 L PG Care Time/CCT Total # of Minutes Spent Total Time Spent with Patient: Total time spent is greater than 50% in coordination of care (as documented) at patient's floor/unit and/or counseling patient: Coding Level of Care Code 82831 Inpt Consult Level 4 Diagnoses ESRD (end stage renal disease) on dialysis N18.6; Z99.2 Generalized weakness R53.1 Anemia D64.9 Anemia type: unspecified type T12 compression fracture S22.080A Encounter type: initial encounter AF (paroxysmal atrial fibrillation) I48.0 (1) Anemia Anemia type: unspecified type Qualified Code(s): D64.9 - Anemia, unspecified (2) T12 compression fracture Encounter type: initial encounter Qualified Code(s): S22.080A - Wedge compression fracture of T11-T12 vertebra, initial encounter for closed fracture
[2020-08-29] MEDS: CEROVITE ADV FORMULA TAB PO SCH (13:33)
[2020-08-29] MEDS: NEPHROCAPS PO SCH (13:33)
[2020-08-29] MEDS: SERTRALINE HCL 50 MG TABLET PO SCH (13:34)
[2020-08-29] MEDS: hydrALAZINE TAB 50 MG TAB PO SCH ×2 (13:34→21:22)
[2020-08-29] MEDS: FUROSEMIDE 20 MG TAB PO SCH ×2 (13:34→16:52)
[2020-08-29] MEDS: amLODIPine BESYLATE 5 MG TAB PO SCH (13:34)
[2020-08-29] MEDS: METOPROLOL TARTRATE 25 MG TAB PO SCH ×2 (13:34→21:22)
[2020-08-29] MEDS: GABAPENTIN 100 MG CAP PO SCH (13:36)
[2020-08-29] MEDS: INSULIN ASPART 100 UNITS/ML 3 ML PEN SC SCH ×3 (14:17→21:39)
--- NOTE | 2020-08-29 15:36 | Hospitalist Progress Note ---
Date of Service August 29, 2020 Assessment & Plan (1) Lower back pain: exquisite pain over right SI joint -- sacroilitis? pain due to lumbar/thoracic compression fractures? pain from DJD? plan - * schedule tylenol 1000mg TID * oxycodone 2.5mg q8h prn * lidoderm patches * voltaren gel 4gm qid to right lower back * k-pad heat * decadron 4mg IV BID for 2-3 days; if she has sacroilitis the steroids should help * cont PT, OT (2) Gait disturbance: cont PT/OT she has generalized weakness along with back pain leading to her troubles ambulating will need rehab check sed rate / crp in am to be complete (3) Generalized weakness: check sed rate/crp for signs of PMR but doubt such recent ESBL UTI - treated with 7 days of ertapenem repeat u/a pending for test of cure - staff knows I/O specimen will be needed COVID-19 testing obtained today - negative for such she may have just severe deconditioning in the face of her numerous medical problems and recent hospital stay await other tests as above (4) Urinary tract infection: recent ESBL c.owen and gamma strep rx 7 days of IV ertapenem - completed this prior to admission u/a ordered to ensure test of cure. if u/a is suspicious for ongoing infection then would restart ertapenem. (5) RLQ abdominal pain: none on exam today follow (6) Diabetes mellitus with diabetic neuropathy: HbA1c 6.9% with decadron use BSGs likely to rise cont novolog correction may need basal insulin/lantus (7) AF (paroxysmal atrial fibrillation): Currently in normal sinus rhythm. Continue warfarin for anticoagulation. daily PT/INR. (8) ESRD (end stage renal disease) on dialysis: Nephrology assistance appreciated. HD on Tuesdays, and Saturdays. volume status acceptable . (9) Hypothyroidism: TSH 3.45 on recent labs. Continue levothyroxine 112 mcg p.o. daily (10) Hypertension: Continue her home regimen of amlodipine 10 mg p.o. daily, Lasix 20 mg p.o. twice daily, hydralazine 100 mg p.o. twice daily BPs controlled. (11) DVT prophylaxis: coumadin Admission and Anticipated Discharge Date Admission Date: August 28, 2020 Subjective upon my arrival patient was working with PT. she was having a very hard time doing the therapy because of back pain. just turning in bed caused significant pain. she complained of generalized weakness and fatigue. had HD this am. patient agrees she is not fit to return home with at discharge. denies fevers, chills, cough, dyspnea, chest pain or abdominal pain. denies paresthesias of legs. patient reports worst pain is right lower back. Review of Systems Constitutional: + fatigue; no fever and no chills Ear, Nose, Mouth, Throat: no nasal congestion and no sore throat Respiratory: no cough, no dyspnea and no wheezing Cardiovascular: no chest pain Gastrointestinal: no abdominal pain Physical Exam Constitutional: + acute distress (2nd back pain ); no altered mental status ENMT: external ear and nose normal, oropharynx normal Respiratory: normal respiratory effort, lungs clear to auscultation Cardiovascular: Rate/Rhythm: regular rate and regular rhythm Heart Sounds: normal S1, normal S2 and + murmur Vessels: posterior tibial pulses present and dorsalis pedis pulses present; no JVD Extremities: + vascular access device (Right chest - permcath. Clean. ); no edema Gastrointestinal (Abdomen): normal bowel sounds, soft, nontender, no hepatosplenomegaly Musculoskeletal: no tenderness to palpation over thoracic spine segments or lumbar spine segments exquisite tenderness over right SI joint; no pain left SI joint Skin: + pallor Neurologic: no proximal muscle weakness of arms or legs; strength handgrip 5/5; biceps flexion 5/5; hip flexion 5/5 b/l; ankle dorsiflexion/plantarflexion 5/5 Psychiatric: Orientation: alert and oriented x 3 Results & Data Results & Data ([facility]) Vital Signs (Past 12 Hours) Vital Signs Temp Pulse Pulse Resp BP BP Pulse Ox 08/29/20 14:55 36.6 C 66 18 137/69 95 08/29/20 13:28 36.8 C 70 138/59 L 08/29/20 12:40 72 133/53 L 08/29/20 12:20 73 126/55 L 08/29/20 12:00 72 130/56 L 08/29/20 11:40 68 121/63 08/29/20 11:20 64 123/52 L 08/29/20 11:00 63 128/53 L 08/29/20 10:40 62 129/55 L 08/29/20 10:20 60 122/55 L 08/29/20 10:00 60 109/63 08/29/20 09:40 61 119/49 L 08/29/20 09:20 59 L 113/50 L 08/29/20 09:16 37.0 C 58 L 08/29/20 09:00 56 L 119/50 L 08/29/20 07:22 36.5 C 57 L 18 130/61 93 Laboratory Results Laboratory Results - last 24 hr 08/28/20 08/29/20 08/29/20 15:26 06:22 13:23 PT 17.9 H INR 1.7 H POC Glucose 114 H COVID-19 Eval Order COVID-19 PCR Hep Bs Antigen Neg Hep Bs Antibody Non-Immune Hep Bs Antibody, Quant < 3.10 L 08/29/20 08/29/20 13:50 13:50 PT INR POC Glucose COVID-19 Eval Order Covid19 Done at [facility] COVID-19 PCR NEGATIVE Hep Bs Antigen Hep Bs Antibody Hep Bs Antibody, Quant PG Care Time/CCT Total # of Minutes Spent Total Time Spent with Patient: Total time spent is greater than 50% in coordination of care (as documented) at patient's floor/unit and/or counseling patient: Coding Level of Care Code 15119 Subseq Obs Care Lvl 3 Diagnoses Lower back pain M54.5 Gait disturbance R26.9 Generalized weakness R53.1 Urinary tract infection N39.0 Hematuria presence: without hematuria Urinary tract infection type: site unspecified RLQ abdominal pain R10.31 Diabetes mellitus with diabetic neuropathy E11.40 AF (paroxysmal atrial fibrillation) I48.0 ESRD (end stage renal disease) on dialysis N18.6; Z99.2 Hypothyroidism E03.9 Hypothyroidism type: acquired Hypertension I10 Hypertension type: unspecified DVT prophylaxis Z29.9 (1) Hypothyroidism Hypothyroidism type: acquired Qualified Code(s): E03.9 - Hypothyroidism, unspecified (2) Hypertension Hypertension type: unspecified Qualified Code(s): I10 - Essential (primary) hypertension (3) Urinary tract infection Hematuria presence: without hematuria Urinary tract infection type: site unspecified Qualified Code(s): N39.0 - Urinary tract infection, site not specified
[2020-08-29] MEDS ORDERED: WARFARIN SOD 4 MG TAB PO SCH (16:00)
[2020-08-29] MEDS ORDERED: oxyCODONE HCL IR 5 MG TAB (IMMEDIATE RELEASE) PO PRN (16:07)
[2020-08-29] MEDS: dexAMETHasone 4 MG in SYRINGE 0 ML IV SCH ×2 (16:53→23:33)
[2020-08-29] MEDS: DICLOFENAC SOD 1% GEL 100 GM TUBE EXT SCH ×2 (16:53→21:24)
[2020-08-29] MEDS ORDERED: GABAPENTIN 400 MG CAP PO SCH (21:00)
[2020-08-29] MEDS: ACETAMINOPHEN 500 MG TAB PO SCH (21:22)
[2020-08-29] MEDS: ATORVASTATIN 10 MG TAB PO SCH (21:23)
[2020-08-30] MEDS: LEVOTHYROXINE SODIUM 112 MCG TABLET PO SCH (05:40)
[2020-08-30 06:44] LABS: INR 1.8 (0.9-1.1); Prothrombin Time 18.7 Seconds (9.0-12.0)
[2020-08-30 06:59] LABS: Hematocrit (blood only) 31.2 % (37-47); Hemoglobin 10.1 g/dL (12.0-16.0); Mean Corpuscular Hemoglobin 33.7 pg (25-34); Mean Corpuscular Hgb Conc 32.4 g/dL (32-36); Mean Platelet Volume 9.5 fL (7.4-10.4); Platelet Count 272 K/uL (130-400); RDW Coefficient of Variation 15.1 % (11.5-14.5); RDW Standard Deviation 57.2 fL (36.4-46.3); White Blood Count 9.38 K/uL (4.8-10.8)
[2020-08-30 07:40] LABS: BUN Creatinine Ratio 5.6 (10-20); C Reactive Protein 6.63 mg/dl (0-0.29); Calcium 8.7 mg/dl (8.5-10.1); Creatinine Clr Calc Pharmacy 9.6 ml/min; Est GFR (African American) 9.5; Est GFR (Non-African American) 8.2; Potassium 4.3 mmol/L (3.5-5.1)
[2020-08-30] MEDS: dexAMETHasone 4 MG in SYRINGE 0 ML IV SCH (08:39)
[2020-08-30] MEDS: CEROVITE ADV FORMULA TAB PO SCH (08:40)
[2020-08-30] MEDS: NEPHROCAPS PO SCH (08:40)
[2020-08-30] MEDS: SERTRALINE HCL 50 MG TABLET PO SCH (08:40)
[2020-08-30] MEDS: amLODIPine BESYLATE 5 MG TAB PO SCH (08:40)
[2020-08-30] MEDS: hydrALAZINE TAB 50 MG TAB PO SCH (08:41)
[2020-08-30] MEDS: GABAPENTIN 100 MG CAP PO SCH (08:41)
[2020-08-30] MEDS: ACETAMINOPHEN 500 MG TAB PO SCH ×2 (08:41→12:55)
[2020-08-30] MEDS: CALCIUM CARBONATE 1250MG TAB PO SCH ×2 (08:42→12:54)
[2020-08-30] MEDS: FUROSEMIDE 20 MG TAB PO SCH (08:42)
[2020-08-30] MEDS: LIDOCAINE 5% 1 PATCH TD PRN (08:43)
[2020-08-30] MEDS: DICLOFENAC SOD 1% GEL 100 GM TUBE EXT SCH ×2 (08:44→12:55)
[2020-08-30] MEDS: INSULIN ASPART 100 UNITS/ML 3 ML PEN SC SCH ×2 (08:45→12:48)
[2020-08-30] MEDS: METOPROLOL TARTRATE 25 MG TAB PO SCH (10:41)
--- NOTE | 2020-08-30 12:22 | Nephrology Progress Note ---
Date of Service August 30, 2020 Assessment & Plan (1) ESRD (end stage renal disease) on dialysis: HD TTS. BP and volume status are controlled. Metabolic profile acceptable. EDW 90 kg. Outpatient HD at [facility] TTS 4hr 2K 2Ca F-180NR . Continue nephrocaps, renal diet. No complications with HD treatment. Qband clearances at goal with TDC. AVF not cleared for use. (2) Generalized weakness: I discussed the plan of care with Dr. Stephens this morning. Possible DC to [facility] for continued PT. (3) Anemia: Epogen provided with HD Q Monday while inpatient. Hemoglobin 10 - stable. (4) T12 compression fracture: Pain control acceptable. (5) AF (paroxysmal atrial fibrillation): Anticoagulated with warfarin. Admission and Anticipated Discharge Date Admission Date: August 28, 2020 Subjective No acute events overnight. Pain appears to be well controlled. Tolerated HD yesterday without complications. Shauna remains weak. She was out of bed with PT yesterday. Shauna understands that she requires continued PT before she can return home. She is reluctant to return to [facility] but understands the benefits. She otherwise feels well. Breathing comfortably. Review of Systems Review of Systems: All systems reviewed & are unremarkable except as noted in HPI & below Physical Exam Constitutional: well developed; no acute distress Eyes: no scleral abnormality and no corneal abnormality ENMT: Mouth: no oral mucosal abnormality and oral mucous membranes not dry Neck: normal visual inspection and trachea midline Respiratory: normal respiratory effort Auscultation: lungs clear to auscultation bilaterally Cardiovascular: Rate/Rhythm: regular rate Heart Sounds: normal S1 and normal S2 Extremities: + AV fistula; no edema Musculoskeletal: Extremities: no cyanosis and no clubbing Skin: normal turgor; no lesions Neurologic: Motor/Sensory: no tremor and no asterixis Psychiatric: Orientation: alert and oriented x 3 Results & Data ([facility]) Vital Signs (Past 12 Hours) Vital Signs Temp Pulse Resp BP Pulse Ox 08/30/20 10:40 55 L 20 107/46 L 95 08/30/20 07:41 36.8 C 56 L 16 127/60 95 Laboratory Results Laboratory Results - last 24 hr 08/29/20 08/29/20 08/29/20 13:23 13:50 13:50 WBC RBC Hgb Hct MCV MCH MCHC RDW Std Deviation RDW Coeff of Jon Plt Count MPV ESR PT INR Sodium Potassium Chloride Carbon Dioxide Anion Gap BUN Creatinine Est Cr Clr Drug Dosing Est GFR ( Amer) Est GFR (Non-Af Amer) BUN/Creatinine Ratio Glucose POC Glucose 114 H Calcium C-Reactive Protein Procalcitonin COVID-19 Eval Order Covid19 Done at [facility] COVID-19 PCR NEGATIVE 08/29/20 08/29/20 08/30/20 16:54 20:21 06:18 WBC RBC Hgb Hct MCV MCH MCHC RDW Std Deviation RDW Coeff of Jon Plt Count MPV ESR PT 18.7 H INR 1.8 H Sodium Potassium Chloride Carbon Dioxide Anion Gap BUN Creatinine Est Cr Clr Drug Dosing Est GFR ( Amer) Est GFR (Non-Af Amer) BUN/Creatinine Ratio Glucose POC Glucose 115 H 137 H Calcium C-Reactive Protein Procalcitonin COVID-19 Eval Order COVID-19 PCR 08/30/20 08/30/20 08/30/20 06:44 06:44 06:44 WBC 9.38 RBC 3.00 L Hgb 10.1 L Hct 31.2 L MCV 104.0 H MCH 33.7 MCHC 32.4 RDW Std Deviation 57.2 H RDW Coeff of Jon 15.1 H Plt Count 272 MPV 9.5 ESR 65 H PT INR Sodium 137 Potassium 4.3 Chloride 101 Carbon Dioxide 30 Anion Gap 6.0 BUN 25 H Creatinine 4.49 H D Est Cr Clr Drug Dosing 9.6 Est GFR ( Amer) 9.5 Est GFR (Non-Af Amer) 8.2 BUN/Creatinine Ratio 5.6 L Glucose 177 H POC Glucose Calcium 8.7 C-Reactive Protein 6.63 H Procalcitonin COVID-19 Eval Order COVID-19 PCR 08/30/20 08/30/20 08/30/20 06:44 07:34 11:21 WBC RBC Hgb Hct MCV MCH MCHC RDW Std Deviation RDW Coeff of Jon Plt Count MPV ESR PT INR Sodium Potassium Chloride Carbon Dioxide Anion Gap BUN Creatinine Est Cr Clr Drug Dosing Est GFR ( Amer) Est GFR (Non-Af Amer) BUN/Creatinine Ratio Glucose POC Glucose 186 H 215 H Calcium C-Reactive Protein Procalcitonin 0.14 COVID-19 Eval Order COVID-19 PCR PG Care Time/CCT Total # of Minutes Spent Total Time Spent with Patient: Total time spent is greater than 50% in coordination of care (as documented) at patient's floor/unit and/or counseling patient: Coding Level of Care Code 15702 Subseq Hosp Care Lvl 3 Diagnoses ESRD (end stage renal disease) on dialysis N18.6; Z99.2 Generalized weakness R53.1 Anemia D64.9 Anemia type: unspecified type T12 compression fracture S22.080A Encounter type: initial encounter AF (paroxysmal atrial fibrillation) I48.0 (1) Anemia Anemia type: unspecified type Qualified Code(s): D64.9 - Anemia, unspecified (2) T12 compression fracture Encounter type: initial encounter Qualified Code(s): S22.080A - Wedge compression fracture of T11-T12 vertebra, initial encounter for closed fracture
--- NOTE | 2020-08-30 14:44 | Discharge Summary ---
Date of Service August 30, 2020 Admission HPI Per Admitting Provider Shauna Pearce is an 89-year-old female who presents to the ER due to generalized weakness. Unable to get much history from the patient but caregiver at bedside reports she has been extremely weak since discharge from last hospitalization. The patient was discharged home just 2 days ago after a fall and thoracic vertebral fracture. Yesterday the patient slid off her bed while sitting. She did not hit her head, reports no injuries from this fall. No chest pain, shortness of breath, dizziness prior to this fall. However this morning Home Health were unable to assist the patient out of bed due to her feeling generally weak. She took approximately an hour to just sits up in her bed today. She reports no unilateral focal weakness or change in sensation, change in speech, vision or hearing. She was placed to have dialysis on but was unable to make it. No fever, chills, new abdominal pain, nausea, vomiting, chest pain, change in bowels, dysuria, melena, shortness of breath, cough, nasal congestion, sinus pain. In the ER she was noted to have an elevated WBC although no infective source identified. She did have previous E. coli ESBL in her urine which was treated last admission with 7 days of IV ertapenem. She does report suprapubic/RLQ pain to palpation although this has been ongoing since her last admission with no acute change. CXR unremarkable for acute etiology. Principal Diagnosis intractable back pain Discharge Exam The patient appeared well Vital signs as documented. Lungs are clear to auscultation and appear unlabored Cardiac exam, Rhythm is regular.. systolic murmur Abdominal exam reveals normal bowel sounds, soft non tender Extremities are nonedematous and both pedal pulses are normal. Neurologic exam is alert and oriented, no focal loss of strength or sensation Skin is without bruises or rashes Psychologically is with concerns for mild dementia Discharge Data Allergies Allergy/AdvReac Type Severity Reaction Status Date / Time No Known Allergies Allergy Verified 08/28/20 12:41 Consultations 08/28/20 13:37 Consult Nephrology Routine Hospital Course (1) Lower back pain: pt has had improvement in musculoskeletal back pain with - * schedule tylenol 1000mg TID * oxycodone 2.5mg q8h prn * lidoderm patches * voltaren gel 4gm qid to right lower back * * did recieve decadron 4mg IV BID for 2-3 days; * cont PT, OT once returns to [facility] (2) Gait disturbance: cont PT/OT she has generalized weakness along with back pain leading to her troubles ambulating will need rehab (3) Generalized weakness: crp is slightly elevated but symptoms improved, not classic of PMR, will keep in mind if quick recurrence once steroids wear off recent ESBL UTI - treated with 7 days of ertapenem COVID-19 testing - negative (4) Urinary tract infection: recent ESBL c.owen and gamma strep rx 7 days of IV ertapenem - completed this prior to admission (5) RLQ abdominal pain: resolved (6) Diabetes mellitus with diabetic neuropathy: HbA1c 6.9% with decadron expect slight rise of short duration (7) AF (paroxysmal atrial fibrillation): Currently in normal sinus rhythm. Continue warfarin for anticoagulation. follow PT/INR. (8) ESRD (end stage renal disease) on dialysis: Nephrology assistance appreciated. HD on Tuesdays, and Saturdays. volume status acceptable . (9) Hypothyroidism: TSH 3.45 on recent labs. Continue levothyroxine 112 mcg p.o. daily (10) Hypertension: Continue her home regimen of amlodipine 10 mg p.o. daily, Lasix 20 mg p.o. twice daily, hydralazine 100 mg p.o. twice daily BPs controlled. (11) DVT prophylaxis: coumadin Total Time Total Time Spent Total Time Spent (In Minutes): It required greater than 30 minutes to prepare this patient for discharge Discharge Plan Discharge Items Patient Disposition: Transfer [facility] Fac Reason For Visit: WEAKNESS,HAVING TROUBLE MOVING AROUND Discharge Diagnosis: intractable back pain ESRD heide dialysis chronically DM PAF Activity: Per Instructions section Activity Comment: will need PT/OT evaluation Non-emergency contact: Primary Care Provider Call non-emergency contact if: you have any medication questions and your symptoms worsen Follow-up/Referrals: Mauri Hinojosa MD [Primary Care Provider] - Diet: Dialysis Renal Addtl Attending Provider Instructions: Please have surveillance of electrolytes and diabetes on regular basis Pending Studies at Discharge: No Stand-Alone Forms: My [facility] Skilled Items Patient informed of condition?: Yes DNR: No Discharge Level of Care: Skilled Communicable Disease: No Discharge Prognosis: Stable Lines: None Urinary Catheter: No Medications and DC Order Prescriptions: New acetaminophen 500 mg Tablet 1,000 mg PO TID Qty: 90 RF: 0 lidocaine 5 % Adhesive Patch,Medicated 2 patch transdermal DAILY Qty: 10 RF: 0 diclofenac sodium [Voltaren] 1 % Gel 4 g EXT QID Qty: 1 RF: 0 oxycodone 5 mg Tablet 2.5 mg PO Q8H PRN (Reason: pain) Qty: 10 RF: 0 Continued (DME) pen needle, diabetic [BD Ultra-Fine [place] Pen Needle] 32 gauge x 5/32" needle See Dose Instructions .ROUTE .MEDSUPPLY Qty: 400 RF: 3 (DME) lancets [OneTouch Delica Plus Lancet] 33 gauge misc See Rx Instructions .ROUTE .MEDSUPPLY Qty: 400 RF: 0 (DME) OneTouch Verio test strips Strip See Dose Instructions .ROUTE .MEDSUPPLY Qty: 400 RF: 3 Renal Caps 1 mg capsule 1 cap PO QAM 30 Days Qty: 90 RF: 3 acetaminophen 325 mg tablet 650 mg PO BID PRN (Reason: fever or pain) RF: 0 amlodipine 10 mg tablet 10 mg PO DAILY 90 Days Qty: 90 RF: 3 atorvastatin 10 mg tablet 10 mg PO HS Qty: 90 RF: 3 hydralazine 100 mg tablet 100 mg PO BID Qty: 60 RF: 5 metoprolol tartrate 25 mg tablet 25 mg PO BID Qty: 46 RF: 5 levothyroxine 112 mcg tablet 112 mcg PO QAM Qty: 30 RF: 5 (DME) FreeStyle Frieda 14 Day Sensor Kit See Rx Instructions [id number] .MEDSUPPLY Qty: 1 RF: 11 (DME) FreeStyle Frieda 14 Day [place] Misc See Rx Instructions [id number] .MEDSUPPLY Qty: 1 RF: 0 gabapentin 300 mg capsule 300 mg PO .SUMOWEFR@HS RF: 0 gabapentin 100 mg capsule 100 mg PO QAM RF: 0 warfarin 3 mg Tablet 3 mg PO 4XWK 30 Days Qty: 30 RF: 0 warfarin [Jantoven] 1 mg Tablet 4 mg PO 3XWK 30 Days Qty: 30 RF: 0 insulin aspart U-100 [Novolog Flexpen U-100 Insulin] 100 unit/mL (3 mL) Insulin Pen See Rx Instructions .ROUTE .COMPLEX Qty: 3 RF: 0 GlucaGen Diagnostic Kit 1 mg/mL Recon Soln 1 mg subcut UD PRN (Reason: hypoglycemia) Qty: 1 RF: 0 glucose [Dex4 Glucose] 4 gram Tablet,Chewable 4 g PO UD PRN (Reason: hypoglycemia) Qty: 30 RF: 0 dextrose 50 % in water (D50W) Syringe 25 - 50 ml IV UD PRN (Reason: hypoglycemia) Qty: 250 RF: 0 PreserVision AREDS [id number] Capsule 1 cap PO BID RF: 0 bisacodyl [Dulcolax (bisacodyl)] 10 mg Suppository 10 mg MT UD PRN (Reason: Constipation) RF: 0 calcium carbonate 500 mg calcium (1,250 mg) Tablet,Chewable 500 mg PO TIDM RF: 0 Biofreeze (menthol) 4 % Gel 1 applic TOPICAL BID RF: 0 lidocaine [Aspercreme (lidocaine HCl)] 4 % Adhesive Patch,Medicated 2 patch TOPICAL DAILY PRN (Reason: Pain) RF: 0 gabapentin 400 mg capsule 400 mg PO .TUTHSA@HS RF: 0 sertraline 25 mg tablet 25 mg PO QAM RF: 0 cholecalciferol (vitamin D3) 25 mcg (1,000 unit) capsule 1,000 unit PO TUTHSA RF: 0 furosemide 20 mg tablet 20 mg PO BIDM RF: 0 Discharge Orders: Discharge Order (Routine); Ordered 08/30/20 Ordered By: Jorje Stephens Admission Data Admit Date/Time: 08/28/20 13:34 Attending Provider: Jorje Stephens Admit Provider: Mike Miramontes Primary Care Provider: Mauri Hinojosa V. Other Providers: Suzi Nettles ; Yesika Vera [facility] Other Interventions: Discharge Summary Assessment (RN) Last Done: 08/30/20 13:44 Coding Level of Care Code D/C Day Management >30 mins Diagnoses Lower back pain M54.5 Gait disturbance R26.9 Generalized weakness R53.1 Urinary tract infection N39.0 Hematuria presence: without hematuria Urinary tract infection type: site unspecified RLQ abdominal pain R10.31 Diabetes mellitus with diabetic neuropathy E11.40 AF (paroxysmal atrial fibrillation) I48.0 ESRD (end stage renal disease) on dialysis N18.6; Z99.2 Hypothyroidism E03.9 Hypothyroidism type: acquired Hypertension I10 Hypertension type: unspecified DVT prophylaxis Z29.9
== END 2020-08-30 14:47 ==
LOC: 2N 11:21 → ED 11:21 → SUATTDRO 13:34 → 2N 13:59 → 2W 15:13

== ENCOUNTER 2021-02-10 16:06 | Inpatient (IN) ==
[2021-02-10 19:00] LABS: Basophils # (auto) 0.06 K/uL (0-0.2); Basophils % (auto) 0.7 %; Eosinophils % (auto) 4.8 %; Hematocrit (blood only) 32.1 % (37-47); Hemoglobin 10.5 g/dL (12.0-16.0); Immature Granulocytes # (auto) 0.07 K/uL (0.00-0.02); Immature Granulocytes % (auto) 0.8 %; Lymphocytes # (auto) 3.26 K/uL (1.2-3.4); Lymphocytes % (auto) 39.4 %; Mean Corpuscular Hemoglobin 34.5 pg (25-34); Mean Corpuscular Hgb Conc 32.7 g/dL (32-36); Mean Corpuscular Volume 105.6 fL (80-100); Mean Platelet Volume 9.8 fL (7.4-10.4); Monocytes # (auto) 1.44 K/uL (0.11-0.59); Monocytes % (auto) 17.4 %; Neutrophils # (auto) 3.05 K/uL (1.4-6.5); Neutrophils % (auto) 36.9 %; Platelet Count 316 K/uL (130-400); RDW Standard Deviation 53.8 fL (36.4-46.3); Red Blood Count 3.04 M/uL (4.2-5.4); White Blood Count 8.28 K/uL (4.8-10.8)
[2021-02-10 19:09] LABS: INR 2.1 (0.9-1.1); Prothrombin Time 19.8 Seconds (9.0-12.0)
[2021-02-10 19:33] LABS: Alanine Aminotransferase 17 U/L (12-78); Albumin Globulin Ratio 0.7 (0.9-2); Albumin Level 2.9 gm/dl (3.4-5.0); Alkaline Phosphatase 130 U/L (45-117); Aspartate Aminotransferase 17 U/L (15-37); BUN Creatinine Ratio 8.3 (10-20); Bilirubin,Total 0.4 mg/dl (0.2-1); Blood Urea Nitrogen 42 mg/dl (7-18); Carbon Dioxide 29 mmol/L (21-32); Chloride 98 mmol/L (98-107); Est GFR (African American) 8.3; Est GFR (Non-African American) 7.2; Glucose 201 mg/dl (70-99); Lipase 126 U/L (73-393); Potassium 3.9 mmol/L (3.5-5.1); Sodium 137 mmol/L (136-145); Total Protein 6.9 gm/dl (6.4-8.2); Troponin I 0.041 ng/ml (0-0.045)
--- NOTE | 2021-02-10 20:19 | CT Scan Report ---
CT OF THE ABDOMEN AND PELVIS WITHOUT CONTRAST CLINICAL HISTORY: Lower back pain. COMPARISON STUDY: CT of the abdomen and pelvis August 19, 2020 TECHNIQUE: Axial images of the abdomen and pelvis were obtained without IV contrast. Images were revi ewed in the axial, sagittal, and coronal planes. Automated exposure control was utilized for the casper dy. A dose lowering technique was utilized adhering to the principles of ALARA. FINDINGS: Evaluation of the abdomen and pelvis is suboptimal on this unenhanced examination. No pneum atosis, free air or portal venous gas is present. Lobulated contour of the liver surface suggests cir rhosis. There is no biliary ductal dilatation status post cholecystectomy. No peripancreatic infiltra tion is present. There is no pancreatic ductal dilatation. The spleen, adrenal glands and kidneys are unremarkable. There is no hydronephrosis. Interval mesenteric infiltration is unchanged. Chronic div erticulosis is noted without evidence for acute diverticulitis. There is no evidence for a bowel obst ruction. The appendix is normal. Bladder wall thickening with adjacent infiltration is noted. This wa s shown on prior exam. There is extensive vascular calcification. T12 and L2 compression fractures ar e again noted. These were shown on prior exam however vertebral body height loss has increased prior CT. There is a new L4 vertebral body fracture with minimal loss of vertebral body height. This is lik el acute. No additional acute fractures are identified. There is no ascites. There is no lymphadenop athy. Subcutaneous calcifications within the anterior abdominal wall are unchanged IMPRESSION: 1. Acute L4 compression fracture with minimal loss of vertebral body height. T12 and L2 fractures abe wn on CT of August 19, 2020 with interval increase in vertebral body height loss. 2. No bowel obstruction. 3. Bladder wall thickening with adjacent infiltration. This was shown on prior exam. This could be co rrelated with urinalysis to exclude cystitis. ACT 112: Negative or not required by law. Electronically signed by: Chai Chen M.D. 02/10/2021 8:17 PM
[2021-02-10] MEDS ORDERED: FOSFOMYCIN TROMETHAMINE 3 GM PACKET PO SCH (21:00)
--- NOTE | 2021-02-10 22:08 | Emergency Department Note ---
Impression & Plan Back pain, Closed compression fracture of L4 vertebra, Acute UTI ED Provider Note Provider: Miles France MD DATE OF SERVICE: 02/10/2021 CHIEF COMPLAINT: Back pain, urine issues HISTORY OF PRESENT ILLNESS: Patient is a 89-year-old female significant past medical history of paroxysmal atrial fibrillation on Coumadin, diabetes, hypothyroidism, end-stage renal disease on dialysis, hypertension, and chronic lower back issues and pain presenting here today from home with her . Evidently the patient states she is concerns about her urine as it smelled like she may have a UTI. She also reports of lower back pain but denies any falls. Denies significant new numbness or tingling in her lower extremities. States she has some chronic lower extremity swelling which is not significantly changed. States she has had some more issues transferring at home but does have some home caregivers. Denies any significant chest pain or shortness of breath. States she has some burning at the beginning of urination but makes little urine is she on dialysis. Does report midline lower back pain as well as occasionally some pain in her stomach. States has been using some Tylenol oxycodone at home to help treat her chronic back pain issues but this seems maybe little bit worse. Does have a chronic back brace which she uses. Patient's daughter much later calls in and states that there were significant concerns about the ability for the patient to care for self at home and it was recommended that she come here for evaluation. Patient's daughter states the caregivers feel that the patient is requiring too much assistance at home and that they are adding provide this care and may be pulling out of providing her home care. Evidently the [facility] agency on aging has begun to become involved again. Evidently in the past the patient was forcibly ordered by the formerly [facility] agency on aging for placement at [facility]. REVIEW OF SYSTEMS: A total of 10 review of systems was obtained and negative except as stated above in the HPI. PAST MEDICAL HISTORY: As noted above MEDICATIONS: Reviewed the patient's home medication list which includes Coumadin. SOCIAL HISTORY: Currently lives at home with PHYSICAL EXAM: GENERAL: alert and oriented laying on the stretcher Head: normocephalic and atraumatic EYES: No injection, discharge or icterus. NECK: Trachea midline ENT: Mucous membranes pink and moist. LUNGS: Airway patent. No retractions. Breath sounds clear with good air entry bilaterally. HEART: Regular rate and rhythm. No chest wall tenderness ABDOMEN: Soft some slight periumbilical tenderness. Not peritoneal. No guarding. BACK: Diffuse midline lower back tenderness without step-off. No significant flank tenderness. SKIN: Acyanotic, warm, dry, without rashes EXTREMITIES: Bilateral 2+ lower extremity swelling without significant tenderness. Left upper extremity fistula with thrill present. NEUROLOGICAL: No focal deficits. No aphasia. No facial droop or slurred speech. EK bpm sinus bradycardia. No PVC. No acute ST segment elevation noted with lateral T wave flattening. QTc 494. CONTINUOUS CARDIAC MONITORING: was ordered and showed a heart rate of 50s and 60s bpm in sinus bradycardia to normal sinus rhythm Patient's laboratory studies and imaging reviewed. Differential includes Infection, gastrointestinal, dehydration, metabolic abnor mality, hypo/hyperglycemia, electrolyte disturbance, anemia, hypoxia, cardiac sources, as well as other pathologies. IMPRESSION/MEDICAL DECISION MAKING: Patient presents initially with symptoms possible UTI and some back pain some slight abdominal discomfort. EKG complete without significant acute abnormality troponin detectable not abnormal. Noted in the setting of ESRD and dialysis doubt acute cardiac event as she denies significant chest pain. CT scan was completed given her anticoagulation status and pain of her back and abdomen. Noted only a new L4 compression fracture and concerns for cystitis. Patient had urinary cath performed. Creatinine elevated but due for dialysis tomorrow. No emergent indication for dialysis at this time. INR therapeutic. Mild anemia. No evidence of acute hepatitis or pancreatitis. Negative Covid test here. Initially questioned with the patient possibly going home being treated with fosfomycin given her ESBL history and states she was adequate pain control. Patient daughter later called and stated significant concerns about the patient' s ability to care for self at home. Evidently home care is falling apart due to increased demands on them due to patient's difficulty with transfer. Area agency on agency is involved and I did involve case management here with the process. Evidently she was sent in to be placed by the area agency on aging. Did discuss with the patient concerns about her ability to go home at this time given her new lumbar fracture pain and possibly lack of home care going forward. She was saddened however she reported was agreeable for staying at least tonight at the hospital for additional evaluation by PT and work by case management. Given a dose of Tylenol that she often uses for her back pain. Giv en a dose of ertapenem renally dosed. Patient's daughter updated via phone. DIAGNOSIS: L4 compression fracture, acute UTI DISPOSITION: Hospitalist will evaluate Patient was agreeable with this plan. Past Med/Surg History Medical History (Updated 02/10/21 @ 20:45 by Miles France M.D.) Anemia Arthritis AV fistula left arm Chronic lower back pain DDD (degenerative disc disease) Depression Diabetic nephropathy ESRD (end stage renal disease) on dialysis [facility] Tues/Thurs/Sat in [place] Fistula Gout Hyperlipidemia Hypertension Hypothyroidism Macular degeneration Paroxysmal atrial fibrillation No pacer > Warfarin > dx several yrs ago> no cardioversions ; follows with [facility] Type 2 diabetes mellitus Surgical History History of cataract surgery bilateral History of cholecystectomy History of colonoscopy S/P dialysis catheter insertion right chest S/P dilation and curettage Family History Mother Diabetes Hypertension Macular degeneration Hypothyroidism Denies family history of Ovarian cancer Myocardial infarction Breast cancer Colorectal cancer Social History Smoking Status: Never smoker Second Hand Exposure: No; Hx Alcohol Use: No Hx Substance Use: No Preferred Language: Belarusian Communication Ability: Effective Visual Impairment: No Limitations Hearing Ability: Normal Desk Lieutenant Required: No Beliefs That Will Affect Care: None marital status: Current Living Situation: Family Current Living Situation Comment: [facility] current occupational status: retired How many Children do You have: 1 Feels Safe at Home: Yes Childhood Exposure to Second-Hand Smoke: No Physical Activity Frequency: Does not Exercise Seatbelt Use: always Assistive Devices: Glasses Allergies Allergies Allergy/AdvReac Type Severity Reaction Status Date / Time No Known Allergies Allergy Verified 02/10/21 20:20 Home Meds Home Medications Medication Instructions Recorded Confirmed PreserVision AREDS 1 cap PO BID 12/17/18 02/10/21 acetaminophen 325 mg tablet 650 mg PO BID PRN tab 05/27/20 02/10/21 cholecalciferol (vitamin D3) 1,000 unit PO 3XWK 08/28/20 02/10/21 lidocaine [Aspercreme (lidocaine 2 patch TOPICAL DAILY PRN 08/28/20 02/10/21 HCl)] amlodipine 10 mg PO QAM 11/09/20 02/10/21 diclofenac sodium [Voltaren] 4 g EXT QAM 11/09/20 02/10/21 lidocaine 2 patch TRANSDERMAL QAM 11/09/20 02/10/21 warfarin 4 mg PO QPM 02/10/21 02/10/21 Previous Rx's Medication Instructions Recorded atorvastatin 10 mg tablet 10 mg PO HS #90 tab 05/28/20 BD Ultra-Fine [place] Pen Needle 32 #400 ea NS 05/29/20 gauge x 5" OneTouch Delica Plus Lancet 33 #400 ea NS 05/29/20 gauge OneTouch Verio test strips #400 ea NS 05/29/20 vitamin B complex and vitamin C 1 cap PO QAM 30 Days #90 cap 07/23/20 no.20-folic acid 1 mg capsule GlucaGen Diagnostic Kit 1 mg SUBCUT UD PRN #1 ea 08/26/20 glucose [Dex4 Glucose] 4 g PO UD PRN #30 tab 08/26/20 flash glucose scanning reader #1 ea 09/30/20 flash glucose sensor #1 ea 09/30/20 gabapentin 100 mg capsule 100 mg PO QAM #30 cap 10/19/20 hydralazine 100 mg tablet 100 mg PO BID #60 tab 10/19/20 levothyroxine 112 mcg tablet 112 mcg PO QAM #30 tab 10/19/20 metoprolol tartrate 25 mg tablet 25 mg PO BID #60 tab 10/19/20 sertraline 25 mg tablet 25 mg PO QAM #90 tab 10/19/20 Lantus Solostar U-100 Insulin 100 See Rx Instructions .ROUTE 11/16/20 unit/mL (3 mL) subcutaneous pen .COMPLEX #15 ml NS furosemide 20 mg tablet 20 mg PO BIDM #60 tab 12/15/20 gabapentin 400 mg capsule 400 mg PO .COMPLEX #45 cap 12/16/20 gabapentin 300 mg capsule 300 mg PO .COMPLEX #12 cap 12/17/20 oxycodone 5 mg tablet 1.25 mg PO Q3H PRN #30 tab 12/21/20 insulin aspart U-100 100 unit/mL 3 unit SUBCUT TID 90 Days #15 ml 01/08/21 (3 mL) subcutaneous pen Results & Data (ED) Vital Signs Vital Signs - 24 hr 02/10/21 16:22 02/10/21 18:45 02/10/21 18:53 Temperature 36.5 C Temperature Source Temporal Artery Scan Pulse Rate 60 Pulse Rate [Right Finger] 70 Respiratory Rate 18 16 Respiratory Effort / Characteristics Non-Labored Respiratory Depth Normal Blood Pressure 120/51 L Blood Pressure [Right Arm] 109/51 L Blood Pressure Mean 74 Blood Pressure Mean [Right Arm] 70 Blood Pressure Position [Right Arm] Pulse Oximetry 93 98 98 Oxygen Delivery Method Room Air Room Air Room Air Sepsis Recent Fever Within 48 Hours No Sepsis New/Unexplained Change in Mental Status No Sepsis Action Taken by Nursing No Action Required 02/10/21 21:05 02/10/21 23:12 Temperature Temperature Source Pulse Rate Pulse Rate [Right Finger] 65 66 Respiratory Rate 16 20 Respiratory Effort / Characteristics Non-Labored Spontaneous Non-Labored Spontaneous Respiratory Depth Normal Normal Blood Pressure Blood Pressure [Right Arm] 131/59 L 134/66 Blood Pressure Mean Blood Pressure Mean [Right Arm] 83 88 Blood Pressure Position [Right Arm] Lying Pulse Oximetry 94 95 Oxygen Delivery Method Room Air Sepsis Recent Fever Within 48 Hours Sepsis New/Unexplained Change in Mental Status Sepsis Action Taken by Nursing Laboratory Data Result diagrams: 02/10/21 18:40 02/10/21 18:40 Lab Results 02/10/21 02/10/21 02/10/21 Range/Units 18:40 18:40 18:40 WBC 8.28 (4.8-10.8) K/uL RBC 3.04 L (4.2-5.4) M/uL Hgb 10.5 L (12.0-16.0) g/dL Hct 32.1 L (37-47) % MCV 105.6 H (80-100) fL MCH 34.5 H (25-34) pg MCHC 32.7 (32-36) g/dL RDW Std Deviation 53.8 H (36.4-46.3) fL RDW Coeff of Jon 14.0 (11.5-14.5) % Plt Count 316 (130-400) K/uL MPV 9.8 (7.4-10.4) fL Immature Gran % (Auto) 0.8 % Neut % (Auto) 36.9 % Lymph % (Auto) 39.4 % [place] % (Auto) 17.4 % Eos % (Auto) 4.8 % Baso % (Auto) 0.7 % Neut # (Auto) 3.05 (1.4-6.5) K/uL Lymph # (Auto) 3.26 (1.2-3.4) K/uL [place] # (Auto) 1.44 H (0.11-0.59) K/uL Eos # (Auto) 0.40 (0-0.5) K/uL Baso # (Auto) 0.06 (0-0.2) K/uL Immature Gran # (Auto) 0.07 H (0.00-0.02) K/uL PT 19.8 H (9.0-12.0) Seconds INR 2.1 H (0.9-1.1) Sodium 137 (136-145) mmol/L Potassium 3.9 (3.5-5.1) mmol/L Chloride 98 (98-107) mmol/L Carbon Dioxide 29 (21-32) mmol/L Anion Gap 10.0 (3-11) BUN 42 H (7-18) mg/dl Creatinine 4.98 H* (0.6-1.2) mg/dl Est Cr Clr Drug Dosing Not Reportable Est GFR ( Amer) 8.3 Est GFR (Non-Af Amer) 7.2 BUN/Creatinine Ratio 8.3 L (10-20) Glucose 201 H (70-99) mg/dl Calcium 8.0 L (8.5-10.1) mg/dl Total Bilirubin 0.4 (0.2-1) mg/dl AST 17 (15-37) U/L ALT 17 (12-78) U/L Alkaline Phosphatase 130 H (45-117) U/L Troponin I 0.041 (0-0.045) ng/ml Total Protein 6.9 (6.4-8.2) gm/dl Albumin 2.9 L (3.4-5.0) gm/dl Globulin 4.0 (2.5-4.0) gm/dl Albumin/Globulin Ratio 0.7 L (0.9-2) Lipase 126 (73-393) U/L Specimen Hemolysis Urine Color Urine Appearance (Clear) Urine pH (4.5-7.5) Ur Specific [place] (1.000-1.030) Urine Protein (Negative) Urine Glucose (UA) (Negative) Urine Ketones (Negative) Urine Blood (Negative) Urine Nitrite (Negative) Urine Bilirubin (Negative) Urine Urobilinogen (Negative) Ur Leukocyte Esterase (Negative) Urine WBC (Auto) (0-5) /hpf Urine RBC (Auto) (0-4) /hpf U Hyaline Cast (Auto) (0-5) /lpf U Epithel Cells (Auto) (0-5) /lpf Urine Bacteria (Auto) (Negative) Urine Yeast COVID-19 Eval Order SARS-CoV-2 (PCR) (Negative) Influenza Type A (PCR) (Neg) Influenza Type B (PCR) (Neg) RSV (RT-PCR) (Neg) 02/10/21 02/10/21 02/10/21 Range/Units 21:34 21:34 21:55 WBC (4.8-10.8) K/uL RBC (4.2-5.4) M/uL Hgb (12.0-16.0) g/dL Hct (37-47) % MCV (80-100) fL MCH (25-34) pg MCHC (32-36) g/dL RDW Std Deviation (36.4-46.3) fL RDW Coeff of Jon (11.5-14.5) % Plt Count (130-400) K/uL MPV (7.4-10.4) fL Immature Gran % (Auto) % Neut % (Auto) % Lymph % (Auto) % [place] % (Auto) % Eos % (Auto) % Baso % (Auto) % Neut # (Auto) (1.4-6.5) K/uL Lymph # (Auto) (1.2-3.4) K/uL [place] # (Auto) (0.11-0.59) K/uL Eos # (Auto) (0-0.5) K/uL Baso # (Auto) (0-0.2) K/uL Immature Gran # (Auto) (0.00-0.02) K/uL PT (9.0-12.0) Seconds INR (0.9-1.1) Sodium (136-145) mmol/L Potassium (3.5-5.1) mmol/L Chloride (98-107) mmol/L Carbon Dioxide (21-32) mmol/L Anion Gap (3-11) BUN (7-18) mg/dl Creatinine (0.6-1.2) mg/dl Est Cr Clr Drug Dosing Est GFR ( Amer) Est GFR (Non-Af Amer) BUN/Creatinine Ratio (10-20) Glucose (70-99) mg/dl Calcium (8.5-10.1) mg/dl Total Bilirubin (0.2-1) mg/dl AST (15-37) U/L ALT (12-78) U/L Alkaline Phosphatase (45-117) U/L Troponin I (0-0.045) ng/ml Total Protein (6.4-8.2) gm/dl Albumin (3.4-5.0) gm/dl Globulin (2.5-4.0) gm/dl Albumin/Globulin Ratio (0.9-2) Lipase (73-393) U/L Specimen Hemolysis Urine Color Yellow Urine Appearance Turbid A (Clear) Urine pH 8.5 H (4.5-7.5) Ur Specific [place] 1.011 (1.000-1.030) Urine Protein 3+ H (Negative) Urine Glucose (UA) Negative (Negative) Urine Ketones Negative (Negative) Urine Blood 1+ H (Negative) Urine Nitrite Negative (Negative) Urine Bilirubin Negative (Negative) Urine Urobilinogen Negative (Negative) Ur Leukocyte Esterase 3+ H (Negative) Urine WBC (Auto) >30 H (0-5) /hpf Urine RBC (Auto) 5-10 H (0-4) /hpf U Hyaline Cast (Auto) 1-5 (0-5) /lpf U Epithel Cells (Auto) 5-10 H (0-5) /lpf Urine Bacteria (Auto) 3+ H (Negative) Urine Yeast Not Reportable COVID-19 Eval Order [facility]FluRsv at [facility] SARS-CoV-2 (PCR) NEGATIVE (Negative) Influenza Type A (PCR) Negative (Neg) Influenza Type B (PCR) Negative (Neg) RSV (RT-PCR) Negative (Neg) Administered Medications Discontinued Medications Acetaminophen (Acetaminophen 500 Mg Tab) 1,000 mg PO NOW STA Stop: 02/10/21 22:16 Last Admin: 02/10/21 23:16 Dose: 1,000 mg Documented by: [id number] Fosfomycin Tromethamine (Fosfomycin Tromethamine 3 Gm Packet) 3 gm PO TODA Y@2100 REYMUNDO Stop: 02/20/21 20:59 Last Admin: 02/10/21 22:14 Dose: Not Given Documented by: [id number] Ertapenem 500 mg/ Sodium (Chloride) 55 mls @ 100 mls/hr IV ONCE STA Stop: 02/10/21 23:03 Last Admin: 02/10/21 23:17 Dose: 100 mls/hr Documented by: [id number] Imaging Data Radiologist's Impression: Abdomen/Pelvis CT 02/10/21 18:39 CT OF THE ABDOMEN AND PELVIS WITHOUT CONTRAST CLINICAL HISTORY: Lower back pain. COMPARISON STUDY: CT of the abdomen and pelvis August 19, 2020 TECHNIQUE: Axial images of the abdomen and pelvis were obtained without IV contrast. Images were reviewed in the axial, sagittal, and coronal planes. Automated exposure control was utilized for the study. A dose lowering techni que was utilized adhering to the principles of ALARA. FINDINGS: Evaluation of the abdomen and pelvis is suboptimal on this unenhanced examination. No pneumatosis, free air or portal venous gas is present. Lobulated contour of the liver surface suggests cirrhosis. There is no biliary ductal dilatation status post cholecystectomy. No peripancreatic infiltration is present. There is no pancreatic ductal dilatation. The spleen, adrenal glands and kidneys are unremarkable. There is no hydronephrosis. Interval mesenteric infiltration is unchanged. Chronic diverticulosis is noted without evidence for acute diverticulitis. There is no evidence for a bowel obstruction. The appendix is normal. Bladder wall thickening with adjacent infiltration is noted. This was shown on prior exam. There is extensive vascular calcification. T12 and L2 compression fractures are again noted. These were shown on prior exam however vertebral body height loss has increased prior CT. There is a new L4 vertebral body fracture with minimal loss of vertebral body height. This is likely acute. No additional acute fractures are identified. There is no ascites. There is no lymphadenopathy. Subcutaneous calcifications within the anterior abdominal wall are unchanged IMPRESSION: 1. Acute L4 compression fracture with minimal loss of vertebral body height. T12 and L2 fractures shown on CT of August 19, 2020 with interval increase in vertebral body height loss. 2. No bowel obstruction. 3. Bladder wall thickening with adjacent infiltration. This was shown on prior exam. This could be correlated with urinalysis to exclude cystitis. ACT 112: Negative or not required by law. Electronically signed by: Chai Chen M.D. 02/10/2021 8:17 PM Discharge Plan Visit Data Chief Complaint: Urinary Symptoms Stated Complaint: POSSIBLE UTI, WEAKNESS- DOC REF ED Provider: Miles France Discharge Problem: Back pain, Closed compression fracture of L4 vertebra, Acute UTI Patient Disposition: Being Evaluated by Hospitalist Prescriptions Prescriptions: No Action (DME) pen needle, diabetic [BD Ultra-Fine [place] Pen Needle] 32 gauge x 5/32" needle See Dose Instructions .ROUTE .MEDSUPPLY Qty: 400 RF: 3 (DME) lancets [OneTouch Delica Plus Lancet] 33 gauge misc See Rx Instructions .ROUTE .MEDSUPPLY Qty: 400 RF: 0 (DME) OneTouch Verio test strips Strip See Dose Instructions .ROUTE .MEDSUPPLY Qty: 400 RF: 3 Renal Caps 1 mg capsule 1 cap PO QAM 30 Days Qty: 90 RF: 3 (DME) FreeStyle [place] 14 Day [place] Misc See Rx Instructions [id number] .MEDSUPPLY Qty: 1 RF: 0 (DME) FreeStyle [place] 14 Day Sensor Kit See Rx Instructions [id number] .MEDSUPPLY Qty: 1 RF: 11 levothyroxine 112 mcg tablet 112 mcg PO QAM Qty: 30 RF: 5 hydralazine 100 mg tablet 100 mg PO BID Qty: 60 RF: 5 sertraline 25 mg tablet 25 mg PO QAM Qty: 90 RF: 3 gabapentin 100 mg capsule 100 mg PO QAM Qty: 30 RF: 5 metoprolol tartrate 25 mg tablet 25 mg PO BID Qty: 60 RF: 5 Lantus Solostar U-100 Insulin 100 unit/mL (3 mL) insulin pen See Rx Instructions .ROUTE .COMPLEX Qty: 15 RF: 5 furosemide 20 mg tablet 20 mg PO BIDM Qty: 60 RF: 5 gabapentin 400 mg capsule 400 mg PO .COMPLEX Qty: 45 RF: 1 gabapentin 300 mg capsule 300 mg PO .COMPLEX Qty: 12 RF: 3 insulin aspart U-100 [Novolog Flexpen U-100 Insulin] 100 unit/mL (3 mL) insulin pen 3 unit subcut TID 90 Days Qty: 15 RF: 1 acetaminophen 325 mg tablet 650 mg PO BID PRN (Reason: fever or pain) RF: 0 atorvastatin 10 mg tablet 10 mg PO HS Qty: 90 RF: 3 oxycodone 5 mg tablet 1.25 mg PO Q3H PRN (Reason: pain) Qty: 30 RF: 0 GlucaGen Diagnostic Kit 1 mg/mL Recon Soln 1 mg subcut UD PRN (Reason: hypoglycemia) Qty: 1 RF: 0 glucose [Dex4 Glucose] 4 gram Tablet,Chewable 4 g PO UD PRN (Reason: hypoglycemia) Qty: 30 RF: 0 amlodipine 10 mg tablet 10 mg PO QAM RF: 0 lidocaine 5 % adhesive patch,medicated 2 patch transdermal QAM RF: 0 diclofenac sodium [Voltaren] 1 % gel 4 g EXT QAM RF: 0 PreserVision AREDS [id number] Capsule 1 cap PO BID RF: 0 lidocaine [Aspercreme (lidocaine HCl)] 4 % Adhesive Patch,Medicated 2 patch TOPICAL DAILY PRN (Reason: Pain) RF: 0 cholecalciferol (vitamin D3) 25 mcg (1,000 unit) capsule 1,000 unit PO 3XWK RF: 0 warfarin 4 mg tablet 4 mg PO QPM RF: 0 Referrals Referrals: Mauri Hinojosa MD [Primary Care Provider] - Discharge Problem: Back pain Qualifiers: Back pain location: low back pain Chronicity: chronic Back pain laterality: midline Sciatica presence: without sciatica Qualified Code(s): M54.5 - Low back pain Closed compression fracture of L4 vertebra Qualifiers: Encounter type: initial encounter Qualified Code(s): S32.040A - Wedge compression fracture of fourth lumbar vertebra, initial encounter for closed fracture
[2021-02-10] MEDS ORDERED: ACETAMINOPHEN 500 MG TAB PO STA (22:15)
[2021-02-10 22:20] LABS: Influenza A virus by PCR Negative (Neg); Influenza B virus by PCR Negative (Neg); RSV by PCR Negative (Neg); SARS CoV2 RNA(COVID-19) InHosp NEGATIVE (Negative)
[2021-02-10 22:27] LABS: Appearance Urine Turbid (Clear); Bilirubin Urine Negative (Negative); Blood Urine 1+ (Negative); Color Urine Yellow; Glucose Urine UA Negative (Negative); Ketones Urine Negative (Negative); Leukocyte Esterase Urine 3+ (Negative); Nitrite Urine Negative (Negative); Specific Gravity Urine 1.011 (1.000-1.030); Urobilinogen Urine Negative (Negative); WBC Urine Automated >30 /hpf (0-5); pH Urine 8.5 (4.5-7.5)
[2021-02-10 22:28] LABS: Protein Urine 3+ (Negative)
[2021-02-10] MEDS ORDERED: ERTAPENEM SODIUM 500 MG in SODIUM CHLORIDE 0.9% 50 ML IV STA (22:31)
[2021-02-10 22:38] LABS: Bacteria Urine Automated 3+ (Negative)
--- NOTE | 2021-02-10 23:25 | History & Physical Report ---
Date of Service February 10, 2021 Assessment & Plan (1) Infection due to ESBL-producing Escherichia coli: Follow urine culture and sensitivity Infections over the past few years have included: ESBL E. coli, Proteus mirabilis. Given ertapenem 1 g IV in the ED, and will continue this daily NSS at 40 mils per hour Present on Admission?: Yes (2) Nontraumatic compression fracture of lumbar vertebra: CT suggest acute L4 compression fracture, however, patient has this prolonged on her problem list, and she reports no significant change in her chronic back pain. There are also fractures at T12 and L2 which are stable. Present on Admission?: Yes (3) AF (paroxysmal atrial fibrillation): PAF/anticoagulated on warfarin/hypertension- INR therapeutic at 2.1, continue current warfarin dosing. Continue amlodipine, hydralazine, metoprolol tartrate. Hold furosemide Present on Admission?: Yes (4) Anticoagulated on Coumadin: See above Present on Admission?: Yes (5) Diabetes mellitus with diabetic neuropathy: Continue gabapentin. Likely fighting ability to ambulate and transfer Present on Admission?: Yes (6) Thoracic compression fracture: Stable Present on Admission?: Yes (7) ESRD on dialysis: Consult her breeder service technician Dr. Palma. Present on Admission?: Yes (8) Type 2 diabetes mellitus: Hold Lantus insulin. Placed on Accu-Cheks AC and at bedtime with NovoLog coverage per scale Check hemoglobin A1c Present on Admission?: Yes (9) Hypertension: See above Present on Admission?: Yes (10) Hyperlipidemia: Continue to lovastatin 10 mg daily Present on Admission?: Yes (11) Hypothyroidism: Continue levothyroxine 112 mcg daily Present on Admission?: Yes (12) Debilitated patient: Consult PT/OT. The patient's daughter and office of aging are concerned regarding ability to return home, and may require transfer to intermediate facility once hospitalization is completed Present on Admission?: Yes History of Present Illness Chief Complaint: The patient presents to the emergency department after being referred by the patient's daughter and the office of aging and present caregivers at home due to difficulties with transferring, increased burning with urination with decreased urine output and worsening of her chronic back pain Primary Care Provider: Mauri Hinojosa MD The patient is a 89-year-old female with a past medical history including chroni c anticoagulation with warfarin, closed fracture of shaft of humerus, pericardial effusion, proteinuria, macular degeneration, diabetes mellitus, CKD, paroxysmal atrial fibrillation, vitamin D deficiency, diabetic peripheral neuropathy, lumbar degenerative disc disease, thoracic degenerative disc disease, thoracic compression fracture, dialysis AV fistula malfunction, urinary tract infection, ESRD on HD, L4 vertebral compression fracture, gout, depression, hypothyroidism, hypertension, hyperlipidemia and arthritis. Patient and her have had caretakers at home who reported that his become more difficult to care for the patient. Patient has been referred by her daughter, caregivers, and office of aging to the emergency department to be assessed. There are concerns with the patient and may adequately take care of themselves in a present living environment. Allergies Allergy/AdvReac Type Severity Reaction Status Date / Time No Known Allergies Allergy Verified 02/10/21 20:20 Home Medications Medication Instructions Recorded Confirmed Type PreserVision AREDS 1 cap PO BID 12/17/18 02/10/21 History acetaminophen 325 mg tablet 650 mg PO BID PRN tab 05/27/20 02/10/21 History atorvastatin 10 mg tablet 10 mg PO HS #90 tab 05/28/20 02/10/21 Rx BD Ultra-Fine Belgica Pen Needle 32 #400 ea NS 05/29/20 01/18/21 Rx gauge x 5/32" OneTouch Delica Plus Lancet 33 #400 ea NS 05/29/20 01/18/21 Rx gauge OneTouch Verio test strips #400 ea NS 05/29/20 01/18/21 Rx vitamin B complex and vitamin C 1 cap PO QAM 30 Days #90 cap 07/23/20 02/10/21 Rx no.20-folic acid 1 mg capsule GlucaGen Diagnostic Kit 1 mg SUBCUT UD PRN #1 ea 08/26/20 02/10/21 Rx glucose [Dex4 Glucose] 4 g PO UD PRN #30 tab 08/26/20 02/10/21 Rx cholecalciferol (vitamin D3) 1,000 unit PO 3XWK 08/28/20 02/10/21 History lidocaine [Aspercreme (lidocaine 2 patch TOPICAL DAILY PRN 08/28/20 02/10/21 History HCl)] flash glucose scanning reader #1 ea 09/30/20 01/18/21 Rx flash glucose sensor #1 ea 09/30/20 01/18/21 Rx gabapentin 100 mg capsule 100 mg PO QAM #30 cap 10/19/20 02/10/21 Rx hydralazine 100 mg tablet 100 mg PO BID #60 tab 10/19/20 02/10/21 Rx levothyroxine 112 mcg tablet 112 mcg PO QAM #30 tab 10/19/20 02/10/21 Rx metoprolol tartrate 25 mg tablet 25 mg PO BID #60 tab 10/19/20 02/10/21 Rx sertraline 25 mg tablet 25 mg PO QAM #90 tab 10/19/20 02/10/21 Rx amlodipine 10 mg PO QAM 11/09/20 02/10/21 History diclofenac sodium [Voltaren] 4 g EXT QAM 11/09/20 02/10/21 History lidocaine 2 patch TRANSDERMAL QAM 11/09/20 02/10/21 History Lantus Solostar U-100 Insulin 100 See Rx Instructions .ROUTE 11/16/20 02/10/21 Rx unit/mL (3 mL) subcutaneous pen .COMPLEX #15 ml NS furosemide 20 mg tablet 20 mg PO BIDM #60 tab 12/15/20 02/10/21 Rx gabapentin 400 mg capsule 400 mg PO .COMPLEX #45 cap 12/16/20 02/10/21 Rx gabapentin 300 mg capsule 300 mg PO .COMPLEX #12 cap 12/17/20 02/10/21 Rx oxycodone 5 mg tablet 1.25 mg PO Q3H PRN #30 tab 12/21/20 02/10/21 Rx insulin aspart U-100 100 unit/mL 3 unit SUBCUT TID 90 Days #15 ml 01/08/21 02/10/21 Rx (3 mL) subcutaneous pen warfarin 4 mg PO QPM 02/10/21 02/10/21 History Past Med/Surg History Medical History (Updated 02/11/21 @ 02:30 by Brian Naik MD) Anemia Arthritis AV fistula left arm Chronic lower back pain DDD (degenerative disc disease) Depression Diabetic nephropathy ESRD (end stage renal disease) on dialysis [facility] [place] Fistula Gout Hyperlipidemia Hypertension Hypothyroidism Macular degeneration Paroxysmal atrial fibrillation No pacer > Warfarin > dx several yrs ago> no cardioversions ; [place] [facility] Type 2 diabetes mellitus Surgical History History of cataract surgery bilateral History of cholecystectomy History of colonoscopy S/P dialysis catheter insertion right chest S/P dilation and curettage Family History Mother Diabetes Hypertension Macular degeneration Hypothyroidism Denies family history of Ovarian cancer Myocardial infarction Breast cancer Colorectal cancer Social History Smoking Status: Never smoker Second Hand Exposure: No; Hx Alcohol Use: No Hx Substance Use: No Preferred Language: Iraqi Communication Ability: Effective Visual Impairment: No Limitations Hearing Ability: Normal Manager Client Required: No Beliefs That Will Affect Care: None marital status: Current Living Situation: Spouse Current Living Situation Comment: [facility] current occupational status: retired How many Children do You have: 1 Other Information That Helps Us Care for You: No Feels Safe at Home: Yes Safety Concerns: Feels Safe At This Time Childhood Exposure to Second-Hand Smoke: No Physical Activity Frequency: Does not Exercise Seatbelt Use: always Assistive Devices: None Review of Systems Review of Systems: The patient denies chest pain, palpitations, shortness of breath, dyspnea on exertion, cough, lower extremity swelling, sore throat, fevers, chills, sweats, nausea, vomiting, diarrhea , constipation, abdominal pain, pelvic pain, blood in urine or stool, lightheadedness, dizziness, headache, loss of consciousness, rash, abnormal bruising or bleeding, focal weakness, numbness or tingling in arms or legs, neck pain, or night sweats. The review of systems is otherwise negative other than for that already noted above, and at least 10 systems have been reviewed. Physical Exam Physical Exam: The patient is awake, alert and oriented, normocephalic and atraumatic, lying in bed and in no acute distress. HEENT--PERRL, EOMI, mucous membranes and oropharynx dry. Neck--supple. No JVD. No bruits. Thyroid normal, trachea midline, no adenopathy. Heart--normal S1 and S2. No murmurs, rubs or gallops. Lungs--clear bilaterally, no respiratory distress, no accessory muscle use. Abdomen--normal bowel sounds and soft. Nontender. Nondistended. Obese. Extremities--no cyanosis or clubbing. No edema. Dermatologic--skin is mildly dry Neurologic--cranial nerves II through XII grossly intact. Rheumatologic--limited range of motion due to body habitus and general debilitation Psychiatric--normal affect. Results & Data Results & Data ([facility]) Vital Signs (Past 12 Hours) Vital Signs Temp Pulse Pulse Resp BP BP Pulse Ox 02/10/21 23:12 66 20 134/66 95 02/10/21 21:05 65 16 131/59 L 94 02/10/21 18:53 98 02/10/21 18:45 70 16 109/51 L 98 02/10/21 16:22 97.7 F 60 18 120/51 L 93 Laboratory Results Laboratory Results WBC 8.28 K/uL (4.8-10.8) 02/10/21 18:40 RBC 3.04 M/uL (4.2-5.4) L 02/10/21 18:40 Hgb 10.5 g/dL (12.0-16.0) L 02/10/21 18:40 Hct 32.1 % (37-47) L 02/10/21 18:40 MCV 105.6 fL (80-100) H 02/10/21 18:40 MCH 34.5 pg (25-34) H 02/10/21 18:40 MCHC 32.7 g/dL (32-36) 02/10/21 18:40 RDW Std Deviation 53.8 fL (36.4-46.3) H 02/10/21 18:40 RDW Coeff of Jon 14.0 % (11.5-14.5) 02/10/21 18:40 Plt Count 316 K/uL (130-400) 02/10/21 18:40 MPV 9.8 fL (7.4-10.4) 02/10/21 18:40 Immature Gran % (Auto) 0.8 % 02/10/21 18:40 Neut % (Auto) 36.9 % 02/10/21 18:40 Lymph % (Auto) 39.4 % 02/10/21 18:40 Bartholomew % (Auto) 17.4 % 02/10/21 18:40 Eos % (Auto) 4.8 % 02/10/21 18:40 Baso % (Auto) 0.7 % 02/10/21 18:40 Neut # (Auto) 3.05 K/uL (1.4-6.5) 02/10/21 18:40 Lymph # (Auto) 3.26 K/uL (1.2-3.4) 02/10/21 18:40 Bartholomew # (Auto) 1.44 K/uL (0.11-0.59) H 02/10/21 18:40 Eos # (Auto) 0.40 K/uL (0-0.5) 02/10/21 18:40 Baso # (Auto) 0.06 K/uL (0-0.2) 02/10/21 18:40 Immature Gran # (Auto) 0.07 K/uL (0.00-0.02) H 02/10/21 18:40 PT 19.8 Seconds (9.0-12.0) H 02/10/21 18:40 INR 2.1 (0.9-1.1) H 02/10/21 18:40 Sodium 137 mmol/L (136-145) 02/10/21 18:40 Potassium 3.9 mmol/L (3.5-5.1) 02/10/21 18:40 Chloride 98 mmol/L (98-107) 02/10/21 18:40 Carbon Dioxide 29 mmol/L (21-32) 02/10/21 18:40 Anion Gap 10.0 (3-11) 02/10/21 18:40 BUN 42 mg/dl (7-18) H 02/10/21 18:40 Creatinine 4.98 mg/dl (0.6-1.2) H* 02/10/21 18:40 Est Cr Clr Drug Dosing Not Reportable 02/10/21 18:40 Est GFR ( Amer) 8.3 02/10/21 18:40 Est GFR (Non-Af Amer) 7.2 02/10/21 18:40 BUN/Creatinine Ratio 8.3 (10-20) L 02/10/21 18:40 Glucose 201 mg/dl (70-99) H 02/10/21 18:40 POC Glucose 124 mg/dl (70-99) H 02/11/21 01:20 Calcium 8.0 mg/dl (8.5-10.1) L 02/10/21 18:40 Total Bilirubin 0.4 mg/dl (0.2-1) 02/10/21 18:40 AST 17 U/L (15-37) 02/10/21 18:40 ALT 17 U/L (12-78) 02/10/21 18:40 Alkaline Phosphatase 130 U/L (45-117) H 02/10/21 18:40 Troponin I 0.041 ng/ml (0-0.045) 02/10/21 18:40 Total Protein 6.9 gm/dl (6.4-8.2) 02/10/21 18:40 Albumin 2.9 gm/dl (3.4-5.0) L 02/10/21 18:40 Globulin 4.0 gm/dl (2.5-4.0) 02/10/21 18:40 Albumin/Globulin Ratio 0.7 (0.9-2) L 02/10/21 18:40 Lipase 126 U/L (73-393) 02/10/21 18:40 Specimen Hemolysis 02/10/21 18:40 Urine Color Yellow 02/10/21 21:55 Urine Appearance Turbid (Clear) A 02/10/21 21:55 Urine pH 8.5 (4.5-7.5) H 02/10/21 21:55 Ur Specific [place] 1.011 (1.000-1.030) 02/10/21 21:55 Urine Protein 3+ (Negative) H 02/10/21 21:55 Urine Glucose (UA) Negative (Negative) 02/10/21 21:55 Urine Ketones Negative (Negative) 02/10/21 21:55 Urine Blood 1+ (Negative) H 02/10/21 21:55 Urine Nitrite Negative (Negative) 02/10/21 21:55 Urine Bilirubin Negative (Negative) 02/10/21 21:55 Urine Urobilinogen Negative (Negative) 02/10/21 21:55 Ur Leukocyte Esterase 3+ (Negative) H 02/10/21 21:55 Urine WBC (Auto) >30 /hpf (0-5) H 02/10/21 21:55 Urine RBC (Auto) 5-10 /hpf (0-4) H 02/10/21 21:55 U Hyaline Cast (Auto) 1-5 /lpf (0-5) 02/10/21 21:55 U Epithel Cells (Auto) 5-10 /lpf (0-5) H 02/10/21 21:55 Urine Bacteria (Auto) 3+ (Negative) H 02/10/21 21:55 Urine Yeast Not Reportable 02/10/21 21:55 COVID-19 Eval Order [facility]Rsv at [facility] 02/10/21 21:34 SARS-CoV-2 (PCR) NEGATIVE (Negative) 02/10/21 21:34 Influenza Type A (PCR) Negative (Neg) 02/10/21 21:34 Influenza Type B (PCR) Negative (Neg) 02/10/21 21:34 RSV (RT-PCR) Negative (Neg) 02/10/21 21:34 Impressions Abdomen/Pelvis CT 02/10/21 18:39 CT OF THE ABDOMEN AND PELVIS WITHOUT CONTRAST CLINICAL HISTORY: Lower back pain. COMPARISON STUDY: CT of the abdomen and pelvis August 19, 2020 TECHNIQUE: Axial images of the abdomen and pelvis were obtained without IV contrast. Images were reviewed in the axial, sagittal, and coronal planes. Automated exposure control was utilized for the study. A dose lowering technique was utilized adhering to the principles of ALARA. FINDINGS: Evaluation of the abdomen and pelvis is suboptimal on this unenhanced examination. No pneumatosis, free air or portal venous gas is present. Lobulated contour of the liver surface suggests cirrhosis. There is no biliary ductal dilatation status post cholecystectomy. No peripancreatic infiltration is present. There is no pancreatic ductal dilatation. The spleen, adrenal glands and kidneys are unremarkable. There is no hydronephrosis. Interval mesenteric infiltration is unchanged. Chronic diverticulosis is noted without evidence for acute diverticulitis. There is no evidence for a bowel obstruction. The appendix is normal. Bladder wall thickening with adjacent infiltration is noted. This was shown on prior exam. There is extensive vascular calcification. T12 and L2 compression fractures are again noted. These were shown on prior exam however vertebral body height loss has increased prior CT. There is a new L4 vertebral body fracture with minimal loss of vertebral body height. This is likely acute. No additional acute fractures are identified. There is no ascites. There is no lymphadenopathy. Subcutaneous calcifications within the anterior abdominal wall are unchanged IMPRESSION: 1. Acute L4 compression fracture with minimal loss of vertebral body height. T12 and L2 fractures shown on CT of August 19, 2020 with interval increase in vertebral body height loss. 2. No bowel obstruction. 3. Bladder wall thickening with adjacent infiltration. This was shown on prior exam. This could be correlated with urinalysis to exclude cystitis. ACT 112: Negative or not required by law. Electronically signed by: Chai Chen M.D. 02/10/2021 8:17 PM Code Status & VTE Plan Code Status Full code VTE Prophylaxis Plan VTE Prophylaxis will be ordered: Yes PG Care Time/CCT Total # of Minutes Spent Total Time Spent with Patient: Total time spent is greater than 50% in coordination of care (as documented) at patient's floor/unit and/or counseling patient: Coding Level of Care Code 96737 Initial Inpt Care Lvl 3 Diagnoses Infection due to ESBL-producing Escherichia coli A49.8; Z16.12 Nontraumatic compression fracture of lumbar vertebra M48.56XA AF (paroxysmal atrial fibrillation) I48.0 Anticoagulated on Coumadin Z51.81; Z79.01 Diabetes mellitus with diabetic neuropathy E11.40 Thoracic compression fracture S22.000A ESRD on dialysis N18.6; Z99.2 Type 2 diabetes mellitus E11.9 Hypertension I10 Hyperlipidemia E78.5 Hyperlipidemia type: unspecified Hypothyroidism E03.9 Hypothyroidism type: acquired Debilitated patient R53.81 (1) Hyperlipidemia Hyperlipidemia type: unspecified Qualified Code(s): E78.5 - Hyperlipidemia, unspecified (2) Hypothyroidism Hypothyroidism type: acquired Qualified Code(s): E03.9 - Hypothyroidism, unspecified
[2021-02-11] MEDS ORDERED: CARBOHYDRATES FOR HYPOGLYCEMIA PO PRN (01:23)
[2021-02-11] MEDS ORDERED: GLUCAGON FOR INJ 1 MG VIAL SQ PRN (01:23)
[2021-02-11] MEDS ORDERED: DEXTROSE 50% 50 ML SYRINGE IV PRN (01:23)
[2021-02-11] MEDS ORDERED: ERTAPENEM SODIUM 1,000 MG in SODIUM CHLORIDE 0.9% 50 ML IV SCH (01:23)
[2021-02-11] MEDS ORDERED: ONDANSETRON INJ 2 MG/ML 2 ML VIAL IV PRN (01:23)
[2021-02-11] MEDS ORDERED: SODIUM CHLORIDE 0.9% 1000ML 1,000 ML IV SCH ×2 (01:23→02:30)
[2021-02-11] MEDS ORDERED: GLUCOSE 10 TABS/TUBE PO PRN (01:23)
[2021-02-11] MEDS ORDERED: GLUCOSE 40% GEL 15 GM TUBE PO PRN (01:23)
[2021-02-11] MEDS: METOPROLOL TARTRATE 25 MG TAB PO SCH ×3 (02:24→20:28)
[2021-02-11] MEDS ORDERED: ERTAPENEM CONSULT ACTIVE PRN (02:33)
[2021-02-11] MEDS: ACETAMINOPHEN 325 MG TAB PO PRN ×2 (06:34→14:20)
[2021-02-11] MEDS: LEVOTHYROXINE SODIUM 112 MCG TABLET PO SCH (06:35)
[2021-02-11 08:24] LABS: Estimated Average Glucose 148 mg/dl; Hemoglobin A1C 6.8 % (4.5-5.6)
[2021-02-11] MEDS: SERTRALINE HCL 50 MG TABLET PO SCH (08:51)
[2021-02-11] MEDS: CHOLECALCIFEROL 1,000 UNITS 25 MCG TAB PO SCH (08:51)
[2021-02-11] MEDS: GABAPENTIN 100 MG CAP PO SCH (08:51)
[2021-02-11] MEDS: CEROVITE ADV FORMULA TAB PO SCH ×2 (08:51→20:29)
[2021-02-11] MEDS: NEPHROCAPS PO SCH (08:51)
[2021-02-11] MEDS: LIDOCAINE 5% 1 PATCH TD SCH (08:52)
[2021-02-11] MEDS: INSULIN ASPART 100 UNITS/ML 3 ML PEN SC SCH ×4 (08:52→20:28)
--- NOTE | 2021-02-11 08:53 | Hospitalist Progress Note ---
Date of Service February 11, 2021 Assessment & Plan (1) Infection due to ESBL-producing Escherichia coli: Patient with recurrent ESBL urinary tract infection Isolation protocol with contact precautions Day #2 ertapenem Afebrile Continue to follow (2) ESRD (end stage renal disease) on dialysis: Hemodialysis Monday, , Monday We will have dialysis today Further management per nephrology (3) Paroxysmal atrial fibrillation: Continue metoprolol Anticoagulated with warfarin (4) Hyperlipidemia: Continue atorvastatin Outpatient management (5) Hypertension: Hemodynamically stable Continue home antihypertensives and follow (6) Hypothyroidism: Continue levothyroxine Outpatient management (7) Vitamin D deficiency: Continue vitamin D repletion Monday and Saturdays Outpatient management (8) DVT prophylaxis: Anticoagulated chronically on Coumadin INR 2.1 Admission and Anticipated Discharge Date Admission Date: February 10, 2021 Subjective Attending: Dr. Recinos Patient admitted 02/10/2021 for ESBL E. coli urine infection. Receiving ert apenem. Referred to the emergency department by patient's daughter in office of aging as the present caregivers at home are having difficulty managing care. Recurrent urinary tract infection going back 2 years. Afebrile this admission. No leukocytosis. Patient recently had permacath dialysis catheter removed by Dr. Westbrook 01/21/2021 as the patient now has a functioning fistula. The patient is an end-stage renal disease patient who receives hemodialysis Monday and Monday as [facility] in [place]. Patient seen and examined at bedside. She is alert and oriented. She can give me a good history of what happened and how she arrived at the hospital. She states that her daughter is extremely overbearing and insisted that she come to the hospital. She states that she feels stronger but is unable to sit up for exam. Even with assistance it is extremely difficult for her to sit up. She denies any fever or chills. She has no shortness of breath. She is oxygenating well on room air. Review of Systems Review of Systems: All systems reviewed & are unremarkable except as noted in Subjective Physical Exam Physical Exam: GENERAL : No acute distress EYES: No icterus, gaze conjugate NOSE: No evidence of epistaxis MOUTH: No lesions or candidiasis NECK: Supple LUNGS: Bibasilar crackles. No bronchospasm. HEART: Regular, rate controlled ABDOMEN: Soft, NT, ND, BS Present EXTREMITIES: No LE edema, pedal pulses intact NEURO: A&OX3 Results & Data Results & [facility] ([facility]) Vital Signs (Past 12 Hours) Vital Signs Temp Pulse Pulse Resp BP BP Pulse Ox 02/11/21 08:01 36.6 C 61 20 119/58 L 92 02/11/21 04:00 36.4 C L 61 20 127/56 L 95 02/11/21 02:40 69 02/11/21 02:12 36.7 C 67 20 144/58 H 93 02/11/21 01:15 62 18 120/45 L 92 02/10/21 23:12 66 20 134/66 95 02/10/21 21:05 65 16 131/59 L 94 Laboratory Results 02/10/21 18:40 02/10/21 18:40 PG Care Time/CCT Total # of Minutes Spent Total Time Spent with Patient: Total time spent is greater than 50% in coordination of care (as documented) at patient's floor/unit and/or counseling patient: Coding Level of Care Code 45869 Subseq Hosp Care Lvl 2 Diagnoses Infection due to ESBL-producing Escherichia coli A49.8; Z16.12 ESRD (end stage renal disease) on dialysis N18.6; Z99.2 Paroxysmal atrial fibrillation I48.0 Hyperlipidemia E78.5 Hyperlipidemia type: unspecified Hypertension I10 Hypothyroidism E03.9 Hypothyroidism type: acquired Vitamin D deficiency E55.9 DVT prophylaxis Z29.9 (1) Hyperlipidemia Hyperlipidemia type: unspecified Qualified Code(s): E78.5 - Hyperlipidemia, unspecified (2) Hypothyroidism Hypothyroidism type: acquired Qualified Code(s): E03.9 - Hypothyroidism, unspecified
[2021-02-11] MEDS: hydrALAZINE TAB 50 MG TAB PO SCH ×2 (10:53→20:27)
[2021-02-11] MEDS: amLODIPine BESYLATE 5 MG TAB PO SCH (10:53)
--- NOTE | 2021-02-11 12:21 | Nephrology Consultation ---
Date of Consultation February 11, 2021 Assessment & Plan (1) ESRD on dialysis: Mrs Pearce has ESRD secondary to diabetic nephropathy, on hemodialysis TTS at [facility] via left brachiocephalic AV fistula. Admitted to the hospital with urinary tract infection and back pain and found to have acute L4 compression fracture. Has history of ESBL E coli UTI. Currently started on art a spears a.m. pending culture. Blood pressure, volume status and electrolyte acceptable. --plan for dialysis today as her regular schedule, UF goal to EDW --looks like she may benefit from long-term care facility placement however previously she repeatedly declined --dose medications for GFR less than 10, left arm nephrology precaution. --continue Nephrocaps daily, DANNA for hemoglobin less than 10.5 --encourage increased protein intake Will follow Thank you for allowing me to participate in your patient's care. It was a pleasure to see Shauna (2) Infection due to ESBL-producing Escherichia coli: (3) Nontraumatic compression fracture of lumbar vertebra: (4) Anemia in chronic kidney disease (CKD): History of Present Illness Reason for Consultation: ESRD on hemodialysis. Attending Physician: Manuel Recinos DO History of Present Illness Mrs. Pearce is a 89 y o F with PMH of ESRD, HTN, T2DM, h/o due to recurrent ESBL E. Coli UTI admitted with UTI and back pain. Nephrology consult was requested to manage hemodialysis while in hospital. EMR records are reviewed in detail during patient's visit. Shauna presented to the hospital with back pain and possible UTI with history of recurrent urinary tract infection. On admission urinalysis was positive for UTI and she was started on ertapenem with prior history of recurrent urinary tract infection with ESBL E coli. CT abdomen pelvis without contrast showed acute L4 compression fracture and lidocaine patch was applied. She denies any signifi cant pain while she is lying but pain worsen with movement. She has home health aide who helps her with her movement and daily activities at home as previously she refused long-term care facility. According to the report that her daughter called and reported she has been clinically declining and requiring more assistance and wondering about long-term care facility placement. Has ESRD secondary to diabetic nephropathy, dialyzes TTS at [facility] has left BC AVF created 05/[address] Westbrook. PMH also significant for recurrent ESBL E. Coli UTI, atrial fibrillation (warfarin), hypothyroidism, AODM and iron deficiency anemia. She denies any shortness of breath, chest pain. Denies dysuria. No fever or chills. Allergies Allergy/AdvReac Type Severity Reaction Status Date / Time No Known Allergies Allergy Verified 02/10/21 20:20 Home Medications Medication Instructions Recorded Confirmed Type PreserVision AREDS 1 cap PO BID 12/17/18 02/10/21 History acetaminophen 325 mg tablet 650 mg PO BID PRN tab 05/27/20 02/10/21 History atorvastatin 10 mg tablet 10 mg PO HS #90 tab 05/28/20 02/10/21 Rx BD Ultra-Fine Belgica Pen Needle 32 #400 ea NS 05/29/20 01/18/21 Rx gauge x 5/32" OneTouch Delica Plus Lancet 33 #400 ea NS 05/29/20 01/18/21 Rx gauge OneTouch Verio test strips #400 ea NS 05/29/20 01/18/21 Rx vitamin B complex and vitamin C 1 cap PO QAM 30 Days #90 cap 07/23/20 02/10/21 Rx no.20-folic acid 1 mg capsule GlucaGen Diagnostic Kit 1 mg SUBCUT UD PRN #1 ea 08/26/20 02/10/21 Rx glucose [Dex4 Glucose] 4 g PO UD PRN #30 tab 08/26/20 02/10/21 Rx cholecalciferol (vitamin D3) 1,000 unit PO 3XWK 08/28/20 02/10/21 History lidocaine [Aspercreme (lidocaine 2 patch TOPICAL DAILY PRN 08/28/20 02/10/21 History HCl)] flash glucose scanning reader #1 ea 09/30/20 01/18/21 Rx flash glucose sensor #1 ea 09/30/20 01/18/21 Rx gabapentin 100 mg capsule 100 mg PO QAM #30 cap 10/19/20 02/10/21 Rx hydralazine 100 mg tablet 100 mg PO BID #60 tab 10/19/20 02/10/21 Rx levothyroxine 112 mcg tablet 112 mcg PO QAM #30 tab 10/19/20 02/10/21 Rx metoprolol tartrate 25 mg tablet 25 mg PO BID #60 tab 10/19/20 02/10/21 Rx sertraline 25 mg tablet 25 mg PO QAM #90 tab 10/19/20 02/10/21 Rx amlodipine 10 mg PO QAM 11/09/20 02/10/21 History diclofenac sodium [Voltaren] 4 g EXT QAM 11/09/20 02/10/21 History lidocaine 2 patch TRANSDERMAL QAM 11/09/20 02/10/21 History Lantus Solostar U-100 Insulin 100 See Rx Instructions .ROUTE 11/16/20 02/10/21 Rx unit/mL (3 mL) subcutaneous pen .COMPLEX #15 ml NS furosemide 20 mg tablet 20 mg PO BIDM #60 tab 12/15/20 02/10/21 Rx gabapentin 400 mg capsule 400 mg PO .COMPLEX #45 cap 12/16/20 02/10/21 Rx gabapentin 300 mg capsule 300 mg PO .COMPLEX #12 cap 12/17/20 02/10/21 Rx oxycodone 5 mg tablet 1.25 mg PO Q3H PRN #30 tab 12/21/20 02/10/21 Rx insulin aspart U-100 100 unit/mL 3 unit SUBCUT TID 90 Days #15 ml 01/08/21 02/10/21 Rx (3 mL) subcutaneous pen warfarin 4 mg PO QPM 02/10/21 02/10/21 History Patient History Medical History (Updated 02/11/21 @ 02:30 by Brian Naik MD) Anemia Arthritis AV fistula left arm Chronic lower back pain DDD (degenerative disc disease) Depression Diabetic nephropathy ESRD (end stage renal disease) on dialysis [facility] Tues/Th/Sat in [place] Fistula Gout Hyperlipidemia Hypertension Hypothyroidism Macular degeneration Paroxysmal atrial fibrillation No pacer > Warfarin > dx several yrs ago> no cardioversions ; follows with [facility] cardio Type 2 diabetes mellitus Surgical History History of cataract surgery bilateral History of cholecystectomy History of colonoscopy S/P dialysis catheter insertion right chest S/P dilation and curettage Family History Mother Diabetes Hypertension Macular degeneration Hypothyroidism Denies family history of Ovarian cancer Myocardial infarction Breast cancer Colorectal cancer Social History Smoking Status: Never smoker Second Hand Exposure: No; Hx Alcohol Use: No Hx Substance Use: No Preferred Language: Burundian Communication Ability: Effective Visual Impairment: No Limitations Hearing Ability: Normal Surgical Instrument Maker Required: No Beliefs That Will Affect Care: None marital status: Current Living Situation: Spouse Current Living Situation Comment: Jody Napoles current occupational status: retired How many Children do You have: 1 Other Information That Helps Us Care for You: No Feels Safe at Home: Yes Safety Concerns: Feels Safe At This Time Childhood Exposure to Second-Hand Smoke: No Physical Activity Frequency: Does not Exercise Seatbelt Use: always Assistive Devices: None Review of Systems Review of Systems: All systems reviewed & are unremarkable except as noted in Subjective Physical Exam Constitutional: WD/WN, vitals as above no acute distress Eyes: + anicteric sclerae ENMT: Ears: no hearing impairment Neck: normal visual inspection Respiratory: normal respiratory effort; no respiratory distress and no cough Auscultation: no crackles, no rales and no wheezes Cardiovascular: Rate/Rhythm: regular rate and regular rhythm Heart Sounds: normal S1 and normal S2 Extremities: + AV fistula; no edema Gastrointestinal (Abdomen): Inspection/Auscultation: normal bowel sounds Percussion/Palpation: abdomen soft; abdomen nontender, no guarding and abdomen n ot rigid Musculoskeletal: Head/Neck/Chest: normocephalic and head atraumatic Extremities: extremities normal to inspection Skin: no rashes, warm and dry Neurologic: moves all extremities and awake; no focal motor deficits and not confused Psychiatric: A+Ox3, euthymic affect Results & Data ([facility]) Vital Signs (Past 12 Hours) Vital Signs Temp Pulse Pulse Resp BP BP Pulse Ox 02/11/21 11:26 36.6 C 58 L 18 131/63 92 02/11/21 08:01 36.6 C 61 20 119/58 L 92 02/11/21 08:00 66 02/11/21 04:00 36.4 C L 61 20 127/56 L 95 02/11/21 02:40 69 02/11/21 02:12 36.7 C 67 20 144/58 H 93 02/11/21 01:15 62 18 120/45 L 92 PG Care Time/CCT Total # of Minutes Spent Total Time Spent with Patient: Total time spent is greater than 50% in coordination of care (as documented) at patient's floor/unit and/or counseling patient: Coding Level of Care Code 82237 Initial Inpt Care Lvl 3 Diagnoses ESRD on dialysis N18.6; Z99.2 Infection due to ESBL-producing Escherichia coli A49.8; Z16.12 Nontraumatic compression fracture of lumbar vertebra M48.56XA Anemia in chronic kidney disease (CKD) N18.9; D63.1
[2021-02-11] MEDS: WARFARIN SOD 4 MG TAB PO SCH (20:26)
[2021-02-11] MEDS: ATORVASTATIN 10 MG TAB PO SCH (20:27)
[2021-02-11] MEDS: GABAPENTIN 400 MG CAP PO SCH (20:27)
[2021-02-11] MEDS: ERTAPENEM SODIUM 500 MG in SODIUM CHLORIDE 0.9% 50 ML IV SCH (23:31)
[2021-02-12 06:04] LABS: Basophils # (auto) 0.04 K/uL (0-0.2); Basophils % (auto) 0.5 %; Eosinophils # (auto) 0.33 K/uL (0-0.5); Eosinophils % (auto) 4.4 %; Hematocrit (blood only) 31.3 % (37-47); Hemoglobin 10.2 g/dL (12.0-16.0); Immature Granulocytes # (auto) 0.05 K/uL (0.00-0.02); Immature Granulocytes % (auto) 0.7 %; Lymphocytes # (auto) 2.12 K/uL (1.2-3.4); Lymphocytes % (auto) 28.3 %; Mean Corpuscular Hemoglobin 34.1 pg (25-34); Mean Corpuscular Hgb Conc 32.6 g/dL (32-36); Mean Corpuscular Volume 104.7 fL (80-100); Mean Platelet Volume 9.3 fL (7.4-10.4); Monocytes # (auto) 1.01 K/uL (0.11-0.59); Monocytes % (auto) 13.5 %; Neutrophils # (auto) 3.95 K/uL (1.4-6.5); Neutrophils % (auto) 52.6 %; Platelet Count 311 K/uL (130-400); RDW Standard Deviation 53.8 fL (36.4-46.3); Red Blood Count 2.99 M/uL (4.2-5.4)
--- NOTE | 2021-02-12 06:09 | Electrocardiogram Report ---
Test Reason : Blood Pressure : / mmHG Vent. Rate : 057 BPM Atrial Rate : 057 BPM P-R Int : 202 ms QRS Dur : 096 ms QT Int : 508 ms P-R-T Axes : 054 056 083 degrees QTc Int : 494 ms Sinus bradycardia Possible Inferior infarct (cited on or before 22-JUL-2016) Nonspecific T wave abnormality Abnormal ECG When compared with ECG of 28-AUG-2020 12:03, TN interval has decreased Confirmed by Gustavo Rios ([id number]) on 02/12/2021 6:09:04 AM Referred By: REFERRED SELF Confirmed By:Gustavo Rios
[2021-02-12 06:26] LABS: Albumin Level 2.6 gm/dl (3.4-5.0); Calcium 8.4 mg/dl (8.5-10.1); Creatinine Clr Calc Pharmacy 12.1 ml/min; Est GFR (African American) 12.5; Est GFR (Non-African American) 10.8
[2021-02-12] MEDS: LEVOTHYROXINE SODIUM 112 MCG TABLET PO SCH (06:33)
[2021-02-12 06:47] LABS: Albumin Globulin Ratio 0.7 (0.9-2); Bilirubin,Total 0.4 mg/dl (0.2-1); Globulin 3.5 gm/dl (2.5-4.0); Total Protein 6.1 gm/dl (6.4-8.2)
[2021-02-12] MEDS: SERTRALINE HCL 50 MG TABLET PO SCH (08:22)
[2021-02-12] MEDS: NEPHROCAPS PO SCH (08:23)
[2021-02-12] MEDS: hydrALAZINE TAB 50 MG TAB PO SCH ×2 (08:23→21:03)
[2021-02-12] MEDS: CEROVITE ADV FORMULA TAB PO SCH ×2 (08:24→21:03)
[2021-02-12] MEDS: amLODIPine BESYLATE 5 MG TAB PO SCH (08:24)
[2021-02-12] MEDS: LIDOCAINE 5% 1 PATCH TD SCH (08:24)
[2021-02-12] MEDS: METOPROLOL TARTRATE 25 MG TAB PO SCH ×2 (08:24→21:03)
[2021-02-12] MEDS: GABAPENTIN 100 MG CAP PO SCH (08:24)
[2021-02-12] MEDS: INSULIN ASPART 100 UNITS/ML 3 ML PEN SC SCH ×4 (08:25→21:03)
[2021-02-12] MEDS: ACETAMINOPHEN 325 MG TAB PO PRN ×2 (08:44→18:15)
--- NOTE | 2021-02-12 10:41 | Nephrology Progress Note ---
Date of Service February 12, 2021 Assessment & Plan (1) ESRD on dialysis: Mrs Pearce has ESRD secondary to diabetic nephropathy, on hemodialysis TTS at [facility] via left brachiocephalic AV fistula. Admitted to the hospital with urinary tract infection and back pain and found to have acute L4 compression fracture. Has history of ESBL E coli UTI. Currently started on Ertapenem pending culture. Blood pressure, volume status and electrolyte acceptable. Had dialysis on 02/11 as her regular schedule --plan for dialysis tomorrow, discharge pending decision regarding outpatient antibiotic --dose medications for GFR less than 10, left arm nephrology precaution. --continue Nephrocaps daily, DANNA for hemoglobin less than 10.5 --encourage increased protein intake Will follow (2) Infection due to ESBL-producing Escherichia coli: (3) Nontraumatic compression fracture of lumbar vertebra: (4) Anemia in chronic kidney disease (CKD): Admission and Anticipated Discharge Date Admission Date: February 12, 2021 Subjective Shauna has been overall feeling better, denies any further episode of dysuria. No fever or chills. Had dialysis yesterday, uneventful. Currently blood pressure, electrolyte and volume status acceptable. Review of Systems Review of Systems: All systems reviewed & are unremarkable except as noted in Subjective Physical Exam Constitutional: WD/WN, vitals as above no acute distress Eyes: + anicteric sclerae ENMT: Ears: no hearing impairment Neck: normal visual inspection Respiratory: normal respiratory effort; no respiratory distress and no cough Auscultation: no crackles, no rales and no wheezes Cardiovascular: Rate/Rhythm: regular rate and regular rhythm Heart Sounds: normal S1 and normal S2 Extremities: + AV fistula; no edema Skin: no rashes, warm and dry Neurologic: moves all extremities and awake; no focal motor deficits and not confused Psychiatric: A+Ox3, euthymic affect Results & Data ([facility]) Vital Signs (Past 12 Hours) Vital Signs Temp Pulse Pulse Resp BP Pulse Ox 02/12/21 10:02 59 L 02/12/21 08:05 36.4 C L 59 L 19 135/71 91 02/12/21 05:04 63 02/12/21 03:24 36.6 C 74 18 128/64 98 02/11/21 23:01 36.8 C 60 18 113/58 L 91 PG Care Time/CCT Total # of Minutes Spent Total Time Spent with Patient: Total time spent is greater than 50% in coordination of care (as documented) at patient's floor/unit and/or counseling patient: Coding Level of Care Code 22910 Subseq Hosp Care Lvl 2 Diagnoses ESRD on dialysis N18.6; Z99.2 Infection due to ESBL-producing Escherichia coli A49.8; Z16.12 Nontraumatic compression fracture of lumbar vertebra M48.56XA Anemia in chronic kidney disease (CKD) N18.9; D63.1
--- NOTE | 2021-02-12 17:13 | Hospitalist Progress Note ---
Date of Service February 12, 2021 Assessment & Plan (1) Infection due to ESBL-producing Escherichia coli: Patient with recurrent ESBL urinary tract infection Isolation protocol with contact precautions Straight cath urine culture with gram-negative bacilli Clean-catch urine culture with diphtheroids Day #3 ertapenem Afebrile Continue to follow (2) ESRD (end stage renal disease) on dialysis: Hemodialysis Monday, , Monday Patient tolerated dialysis well yesterday Dialysis tomorrow and Monday Anticipate discharge to [facility] on Monday New dialysis schedule be Monday Further management per nephrology (3) Paroxysmal atrial fibrillation: Continue metoprolol Anticoagulated with warfarin (4) Hyperlipidemia: Continue atorvastatin Outpatient management (5) Hypertension: Hemodynamically stable Continue home antihypertensives and follow (6) Hypothyroidism: Continue levothyroxine Outpatient management (7) Vitamin D deficiency: Continue vitamin D repletion Monday and Saturdays Outpatient management (8) DVT prophylaxis: Anticoagulated chronically on Coumadin INR 2.1 -check repeat INR tomorrow Admission and Anticipated Discharge Date Admission Date: February 12, 2021 Subjective Attending: Dr. Recinos Patient seen and examined at bedside. She is more confused today. He is afebrile and vital signs are stable. White count is 7.5. Patient had dialysis yesterday. No fever or chills. Very little urine. No n/v/d. Scheduled again for dialysis tomorrow. Anticipate discharge Monday to [facility]. Review of Systems Review of Systems: All systems reviewed & are unremarkable except as noted in Subjective Physical Exam Physical Exam: GENERAL : No acute distress. Confused. Cooperative EYES: No icterus, gaze conjugate NOSE: No evidence of epistaxis MOUTH: No lesions or candidiasis NECK: Supple LUNGS: CTA B/L, no wheezes, rales or rhonchi HEART: Regular, rate controlled ABDOMEN: Soft, NT, ND, BS Present EXTREMITIES: No LE edema, pedal pulses intact NEURO: A&OX3 Results & Data Results & Data ([facility]) Vital Signs (Past 12 Hours) Vital Signs Temp Pulse Pulse Pulse Resp BP Pulse Ox 02/12/21 15:51 36.6 C 56 L 17 139/52 L 94 02/12/21 15:19 57 L 02/12/21 12:00 36.7 C 55 L 20 128/61 93 02/12/21 10:02 59 L 02/12/21 08:05 36.4 C L 59 L 19 135/71 91 Laboratory Results 02/12/21 05:41 02/12/21 05:41 Diagnostic Findings No further diagnostic imaging PG Care Time/CCT Total # of Minutes Spent Total Time Spent with Patient: Total time spent is greater than 50% in coordination of care (as documented) at patient's floor/unit and/or counseling patient: Coding Level of Care Code 40632 Subseq Hosp Care Lvl 2 Diagnoses Infection due to ESBL-producing Escherichia coli A49.8; Z16.12 ESRD (end stage renal disease) on dialysis N18.6; Z99.2 Paroxysmal atrial fibrillation I48.0 Hyperlipidemia E78.5 Hyperlipidemia type: unspecified Hypertension I10 Hypothyroidism E03.9 Hypothyroidism type: acquired Vitamin D deficiency E55.9 DVT prophylaxis Z29.9 (1) Hyperlipidemia Hyperlipidemia type: unspecified Qualified Code(s): E78.5 - Hyperlipidemia, unspecified (2) Hypothyroidism Hypothyroidism type: acquired Qualified Code(s): E03.9 - Hypothyroidism, unspecified
[2021-02-12] MEDS: GABAPENTIN 300 MG CAP PO SCH (21:00)
[2021-02-12] MEDS: ATORVASTATIN 10 MG TAB PO SCH (21:01)
[2021-02-12] MEDS: WARFARIN SOD 4 MG TAB PO SCH (21:02)
[2021-02-12] MEDS: ERTAPENEM SODIUM 500 MG in SODIUM CHLORIDE 0.9% 50 ML IV SCH (22:52)
[2021-02-13] MEDS: LEVOTHYROXINE SODIUM 112 MCG TABLET PO SCH (05:49)
[2021-02-13] MEDS ORDERED: EPOETIN ALFA 4,000 UNIT/ML VIAL SQ SCH (08:00)
[2021-02-13] MEDS: CEROVITE ADV FORMULA TAB PO SCH ×2 (08:07→20:24)
[2021-02-13] MEDS: GABAPENTIN 100 MG CAP PO SCH (08:07)
[2021-02-13] MEDS: CHOLECALCIFEROL 1,000 UNITS 25 MCG TAB PO SCH (08:07)
[2021-02-13] MEDS: NEPHROCAPS PO SCH (08:07)
[2021-02-13] MEDS: SERTRALINE HCL 50 MG TABLET PO SCH (08:07)
[2021-02-13] MEDS: LIDOCAINE 5% 1 PATCH TD SCH (08:08)
[2021-02-13] MEDS: amLODIPine BESYLATE 5 MG TAB PO SCH (08:09)
[2021-02-13] MEDS: hydrALAZINE TAB 50 MG TAB PO SCH ×2 (08:09→20:25)
[2021-02-13] MEDS: METOPROLOL TARTRATE 25 MG TAB PO SCH ×2 (08:09→20:27)
[2021-02-13] MEDS: INSULIN ASPART 100 UNITS/ML 3 ML PEN SC SCH ×4 (08:12→20:28)
[2021-02-13 09:07] LABS: Basophils # (auto) 0.04 K/uL (0-0.2); Basophils % (auto) 0.4 %; Eosinophils # (auto) 0.44 K/uL (0-0.5); Eosinophils % (auto) 4.9 %; Hemoglobin 10.8 g/dL (12.0-16.0); Immature Granulocytes # (auto) 0.08 K/uL (0.00-0.02); Immature Granulocytes % (auto) 0.9 %; Lymphocytes # (auto) 2.34 K/uL (1.2-3.4); Lymphocytes % (auto) 25.9 %; Mean Corpuscular Hemoglobin 34.7 pg (25-34); Mean Corpuscular Hgb Conc 32.7 g/dL (32-36); Mean Corpuscular Volume 106.1 fL (80-100); Mean Platelet Volume 8.9 fL (7.4-10.4); Monocytes # (auto) 1.05 K/uL (0.11-0.59); Monocytes % (auto) 11.6 %; Neutrophils % (auto) 56.3 %; Platelet Count 315 K/uL (130-400); RDW Coefficient of Variation 14.1 % (11.5-14.5); RDW Standard Deviation 53.8 fL (36.4-46.3); Red Blood Count 3.11 M/uL (4.2-5.4); White Blood Count 9.05 K/uL (4.8-10.8)
[2021-02-13 09:16] LABS: INR 1.4 (0.9-1.1); Prothrombin Time 13.8 Seconds (9.0-12.0)
[2021-02-13 09:55] LABS: Albumin Globulin Ratio 0.8 (0.9-2); Albumin Level 2.9 gm/dl (3.4-5.0); BUN Creatinine Ratio 6.9 (10-20); Bilirubin,Total 0.5 mg/dl (0.2-1); Calcium 8.7 mg/dl (8.5-10.1); Creatinine Clr Calc Pharmacy 7.7 ml/min; Est GFR (African American) 7.3; Est GFR (Non-African American) 6.3; Globulin 3.5 gm/dl (2.5-4.0); Potassium 4.2 mmol/L (3.5-5.1); Total Protein 6.4 gm/dl (6.4-8.2)
--- NOTE | 2021-02-13 10:55 | Nephrology Progress Note ---
Date of Service February 13, 2021 Assessment & Plan (1) ESRD on dialysis: ESRD due to DKD. HD TTS at [facility]. Plan to transition to MWF schedule post discharge for transportation at [facility]. HD this AM unable to be completed due to infiltration of AVF. Patient will be evaluated by dialysis nurse this afternoon after resting AVF. If appropriate, dialysis will be performed this afternoon. Otherwise, will re-evaluate tomorrow AM. EMLA cream to be placed prior to dialysis. Volume status and blood pressure are currently acceptable. Renal diet. Encourage protein intake. Nephrocaps daily. Medications are appropriately dosed for kidney function. Tolerating large dose of gabapentin. (2) Infection due to ESBL-producing Escherichia coli: Remains on Etrapenem. (3) Nontraumatic compression fracture of lumbar vertebra: Pain control appropriate. (4) Anemia in chronic kidney disease (CKD): Epogen 4000 units with HD today. Admission and Anticipated Discharge Date Admission Date: February 12, 2021 Subjective No acute events overnight. Shauna feels well today and hopes to be discharged PEDRO. Shauna was seen and evaluated in the dialysis unit this morning. Unfortunately, her treatment was stopped due to infiltration of the needles. Arm dressed and bleeding stopped. She denies pain. Shauna is breathing comfortably. Review of Systems Review of Systems: All systems reviewed & are unremarkable except as noted in HPI & below Physical Exam Constitutional: well developed; no acute distress Eyes: no scleral abnormality and no corneal abnormality ENMT: Mouth: no oral mucosal abnormality and oral mucous membranes not dry Neck: normal visual inspection and trachea midline Respiratory: normal respiratory effort Auscultation: lungs clear to auscultation bilaterally Cardiovascular: Rate/Rhythm: regular rate Heart Sounds: normal S1 and normal S2 Extremities: + AV fistula; no edema Musculoskeletal: Extremities: no cyanosis and no clubbing Skin: normal turgor; no lesions Neurologic: Motor/Sensory: no tremor and no asterixis Psychiatric: Orientation: alert and oriented x 3 Results & Data ([facility]) Vital Signs (Past 12 Hours) Vital Signs Temp Pulse Pulse Resp BP Pulse Ox 02/13/21 07:38 36.5 C 58 L 18 145/56 H 94 02/13/21 06:51 36.4 C L 56 L 18 139/64 92 02/13/21 04:11 36.4 C L 61 18 130/56 L 92 04/16/21 23:39 36.4 C L 57 L 18 133/61 93 Laboratory Results Laboratory Results - last 24 hr 02/12/21 02/12/21 02/12/21 05:41 11:36 16:31 WBC RBC Hgb Hct MCV MCH MCHC RDW Std Deviation RDW Coeff of Jon Plt Count MPV Immature Gran % (Auto) Neut % (Auto) Lymph % (Auto) Mckinley % (Auto) Eos % (Auto) Baso % (Auto) Neut # (Auto) Lymph # (Auto) Mckinley # (Auto) Eos # (Auto) Baso # (Auto) Immature Gran # (Auto) PT INR Sodium Potassium Chloride Carbon Dioxide Anion Gap BUN Creatinine Est Cr Clr Drug Dosing Est GFR ( Amer) Est GFR (Non-Af Amer) BUN/Creatinine Ratio Glucose POC Glucose 110 H 180 H Calcium Total Bilirubin AST ALT Alkaline Phosphatase Total Protein Albumin Globulin Albumin/Globulin Ratio Hepatitis Be Antigen Cancelled 02/12/21 02/13/21 02/13/21 20:34 07:37 08:56 WBC 9.05 RBC 3.11 L Hgb 10.8 L Hct 33.0 L MCV 106.1 H MCH 34.7 H MCHC 32.7 RDW Std Deviation 53.8 H RDW Coeff of Jon 14.1 Plt Count 315 MPV 8.9 Immature Gran % (Auto) 0.9 Neut % (Auto) 56.3 Lymph % (Auto) 25.9 Mckinley % (Auto) 11.6 Eos % (Auto) 4.9 Baso % (Auto) 0.4 Neut # (Auto) 5.10 Lymph # (Auto) 2.34 Mckinley # (Auto) 1.05 H Eos # (Auto) 0.44 Baso # (Auto) 0.04 Immature Gran # (Auto) 0.08 H PT INR Sodium Potassium Chloride Carbon Dioxide Anion Gap BUN Creatinine Est Cr Clr Drug Dosing Est GFR ( Amer) Est GFR (Non-Af Amer) BUN/Creatinine Ratio Glucose POC Glucose 194 H 133 H Calcium Total Bilirubin AST ALT Alkaline Phosphatase Total Protein Albumin Globulin Albumin/Globulin Ratio Hepatitis Be Antigen 02/13/21 02/13/21 08:56 08:56 WBC RBC Hgb Hct MCV MCH MCHC RDW Std Deviation RDW Coeff of Jon Plt Count MPV Immature Gran % (Auto) Neut % (Auto) Lymph % (Auto) Mckinley % (Auto) Eos % (Auto) Baso % (Auto) Neut # (Auto) Lymph # (Auto) Mckinley # (Auto) Eos # (Auto) Baso # (Auto) Immature Gran # (Auto) PT 13.8 H INR 1.4 H Sodium 138 Potassium 4.2 Chloride 103 Carbon Dioxide 27 Anion Gap 8.0 BUN 39 H D Creatinine 5.55 H* D Est Cr Clr Drug Dosing 7.7 Est GFR ( Amer) 7.3 Est GFR (Non-Af Amer) 6.3 BUN/Creatinine Ratio 6.9 L Glucose 128 H POC Glucose Calcium 8.7 Total Bilirubin 0.5 AST 14 L ALT 14 Alkaline Phosphatase 101 Total Protein 6.4 Albumin 2.9 L Globulin 3.5 Albumin/Globulin Ratio 0.8 L Hepatitis Be Antigen PG Care Time/CCT Total # of Minutes Spent Total Time Spent with Patient: Total time spent is greater than 50% in coordination of care (as documented) at patient's floor/unit and/or counseling patient: Coding Level of Care Code 55537 Subseq Hosp Care Lvl 3 Diagnoses ESRD on dialysis N18.6; Z99.2 Infection due to ESBL-producing Escherichia coli A49.8; Z16.12 Nontraumatic compression fracture of lumbar vertebra M48.56XA Anemia in chronic kidney disease (CKD) N18.9; D63.1
[2021-02-13] MEDS: LIDOCAINE/PRILOCAINE 2.5% EA CRM EXT PRN (14:50)
--- NOTE | 2021-02-13 16:39 | Hospitalist Progress Note ---
Date of Service February 13, 2021 Assessment & Plan (1) Infection due to ESBL-producing Escherichia coli: Patient with recurrent ESBL urinary tract infection Isolation protocol with contact precautions Straight cath urine culture with gram-negative bacilli Clean-catch urine culture with diphtheroids Day #4 ertapenem Afebrile Continue to follow (2) ESRD (end stage renal disease) on dialysis: Hemodialysis Monday, , Monday Patient tolerated dialysis well 4/15 difficulty accessing fistula this morning, HD RN will evaluate this afternoon electrolytes stable Anticipate discharge to [facility] on Monday New dialysis schedule be Monday Further management per nephrology (3) Paroxysmal atrial fibrillation: Continue metoprolol, rates controlled Anticoagulated with warfarin (4) Hyperlipidemia: Continue atorvastatin Outpatient management (5) Hypertension: Hemodynamically stable Continue home antihypertensives and follow (6) Hypothyroidism: Continue levothyroxine Outpatient management (7) Vitamin D deficiency: Continue vitamin D repletion Monday and Saturdays Outpatient management (8) DVT prophylaxis: Anticoagulated chronically on Coumadin INR 1.4 -check repeat INR tomorrow Admission and Anticipated Discharge Date Admission Date: February 12, 2021 Subjective patient doing well today, saw her at lunch time, she was eating well issue with her fistula today, will attempt HD again this afternoon reviewed labs, WBC and Hb stable, electrolytes stable she denies chest pain, dyspnea, fever/chills, nausea, diarrhea discussed staying the weekend and going to SNF, she wishes she could go home case management following Review of Systems Review of Systems: All systems reviewed & are unremarkable except as noted in Subjective Physical Exam Constitutional: WD/WN, vitals as above Neck: trachea midline, no thyromegaly Respiratory: normal respiratory effort, lungs clear to auscultation Cardiovascular: RRR, no murmur, no edema Extremities: + AV fistula (left UE) Gastrointestinal (Abdomen): normal bowel sounds, soft, nontender, no hepatosplenomegaly Musculoskeletal: Head/Neck/Chest: normocephalic, head atraumatic and neck supple Extremities: extremities normal to inspection and + abnormal strength (generalized weakness); no cyanosis, no clubbing and no petechiae Skin: no rashes, warm and dry Neurologic: patellar DTR's 2+ bilat, sensation intact and PERRL, EOMI, accommodation nl, no face palsy, no dysarthria Psychiatric: A+Ox3, euthymic affect Lymphatic: no cervical or axillary lymphadenopathy Results & Data Results & Data ([facility]) Vital Signs (Past 12 Hours) Vital Signs Temp Pulse Pulse Pulse Resp BP Pulse Ox 02/13/21 15:18 36.4 C L 63 16 151/59 H 96 02/13/21 15:05 64 02/13/21 11:04 36.5 C 54 L 16 148/58 H 96 02/13/21 09:40 56 L 02/13/21 09:18 36.6 C 59 L 02/13/21 08:00 68 02/13/21 07:38 36.5 C 58 L 18 145/56 H 94 02/13/21 06:51 36.4 C L 56 L 18 139/64 92 Laboratory Results Laboratory Results - last 24 hr 02/12/21 02/12/21 02/13/21 05:41 20:34 07:37 WBC RBC Hgb Hct MCV MCH MCHC RDW Std Deviation RDW Coeff of Jon Plt Count MPV Immature Gran % (Auto) Neut % (Auto) Lymph % (Auto) [place] % (Auto) Eos % (Auto) Baso % (Auto) Neut # (Auto) Lymph # (Auto) [place] # (Auto) Eos # (Auto) Baso # (Auto) Immature Gran # (Auto) PT INR Sodium Potassium Chloride Carbon Dioxide Anion Gap BUN Creatinine Est Cr Clr Drug Dosing Est GFR ( Amer) Est GFR (Non-Af Amer) BUN/Creatinine Ratio Glucose POC Glucose 194 H 133 H Calcium Total Bilirubin AST ALT Alkaline Phosphatase Total Protein Albumin Globulin Albumin/Globulin Ratio Hepatitis Be Antigen Cancelled 02/13/21 02/13/21 02/13/21 08:56 08:56 08:56 WBC 9.05 RBC 3.11 L Hgb 10.8 L Hct 33.0 L MCV 106.1 H MCH 34.7 H MCHC 32.7 RDW Std Deviation 53.8 H RDW Coeff of Jon 14.1 Plt Count 315 MPV 8.9 Immature Gran % (Auto) 0.9 Neut % (Auto) 56.3 Lymph % (Auto) 25.9 [place] % (Auto) 11.6 Eos % (Auto) 4.9 Baso % (Auto) 0.4 Neut # (Auto) 5.10 Lymph # (Auto) 2.34 [place] # (Auto) 1.05 H Eos # (Auto) 0.44 Baso # (Auto) 0.04 Immature Gran # (Auto) 0.08 H PT 13.8 H INR 1.4 H Sodium 138 Potassium 4.2 Chloride 103 Carbon Dioxide 27 Anion Gap 8.0 BUN 39 H D Creatinine 5.55 H* D Est Cr Clr Drug Dosing 7.7 Est GFR ( Amer) 7.3 Est GFR (Non-Af Amer) 6.3 BUN/Creatinine Ratio 6.9 L Glucose 128 H POC Glucose Calcium 8.7 Total Bilirubin 0.5 AST 14 L ALT 14 Alkaline Phosphatase 101 Total Protein 6.4 Albumin 2.9 L Globulin 3.5 Albumin/Globulin Ratio 0.8 L Hepatitis Be Antigen 02/13/21 11:06 WBC RBC Hgb Hct MCV MCH MCHC RDW Std Deviation RDW Coeff of Jon Plt Count MPV Immature Gran % (Auto) Neut % (Auto) Lymph % (Auto) [place] % (Auto) Eos % (Auto) Baso % (Auto) Neut # (Auto) Lymph # (Auto) [place] # (Auto) Eos # (Auto) Baso # (Auto) Immature Gran # (Auto) PT INR Sodium Potassium Chloride Carbon Dioxide Anion Gap BUN Creatinine Est Cr Clr Drug Dosing Est GFR ( Amer) Est GFR (Non-Af Amer) BUN/Creatinine Ratio Glucose POC Glucose 166 H Calcium Total Bilirubin AST ALT Alkaline Phosphatase Total Protein Albumin Globulin Albumin/Globulin Ratio Hepatitis Be Antigen Medications Administered Current Inpatient Medications Acetaminophen (Acetaminophen 325 Mg Tab) 650 mg PO Q4H PRN PRN Reason: Pain or Fever Stop: 03/13/21 01:22 Last Admin: 02/12/21 18:15 Dose: 650 mg Documented by: Amlodipine Besylate (Amlodipine Besylate 5 Mg Tab) [facility] [place] Stop: 03/13/21 08:59 Last Admin: 02/13/21 08:09 Dose: Not Given Documented by: Atorvastatin Calcium (Atorvastatin 10 Mg Tab) 10 mg PO HS [facility] Stop: 03/13/21 20:59 Last Admin: 02/12/21 21:01 Dose: 10 mg Documented by: Dextrose (Dextrose 50% 50 Ml Syringe) 25 - 50 ml IV UD PRN; Protocol PRN Reason: Hypoglycemia Protocol Stop: 03/13/21 01:22 Epoetin Rick (Epoetin Rick 4,000 Unit/Ml Vial) 4,000 units SQ UD [facility] Stop: 03/15/21 07:59 Ertapenem (Ertapenem Consult Active) 1 ea N/A UD PRN PRN Reason: Consult Stop: 03/13/21 02:32 Gabapentin (Gabapentin 400 Mg Cap) 400 mg PO TuThSa@2100 [facility] Stop: 03/13/21 20:59 Last Admin: 02/11/21 20:27 Dose: 400 mg Documented by: Gabapentin (Gabapentin 300 Mg Cap) 300 mg PO SuMoWeFr@2100 [facility] Stop: 03/14/21 20:59 Last Admin: 02/12/21 21:00 Dose: 300 mg Documented by: Gabapentin (Gabapentin 100 Mg Cap) 100 mg PO QAM [facility] Stop: 03/13/21 08:59 Last Admin: 02/13/21 08:07 Dose: 100 mg Documented by: Glucagon (Glucagon For Inj 1 Mg Vial) 1 mg SQ UD PRN; Protocol PRN Reason: Hypoglycemia Protocol Stop: 03/13/21 01:22 Glucose (Glucose 10 Tabs/Tube) 4 - 8 tabs PO UD PRN; Protocol PRN Reason: Hypoglycemia Protocol Stop: 03/13/21 01:22 Glucose (Glucose 40% Gel 15 Gm Tube) 15 - 30 gm PO UD PRN; Protocol PRN Reason: Hypoglycemia Protocol Stop: 03/13/21 01:22 Hydralazine HCl (Hydralazine Tab 50 Mg Tab) 100 mg PO BID [facility] Stop: 03/13/21 08:59 Last Admin: 02/13/21 08:09 Dose: Not Given Documented by: Ertapenem 500 mg/ Sodium (Chloride) 55 mls @ 100 mls/hr IV Q24H [facility]; Protocol Stop: 02/19/21 23:32 Last Infusion: 02/12/21 23:41 Dose: Infused Documented by: Insulin Aspart (Insulin Aspart 100 Units/Ml 3 Ml Pen) 0 units SC ACHS [facility] Stop: 03/13/21 07:29 Last Admin: 02/13/21 12:41 Dose: 4 units Documented by: Levothyroxine Sodium (Levothyroxine Sodium 112 Mcg Tablet) 112 mcg PO DAILYBB [facility] Stop: 03/13/21 06:29 Last Admin: 02/13/21 05:49 Dose: 112 mcg Documented by: Lidocaine (Lidocaine 5% 1 Patch) 2 patch TD QAM [facility] Stop: 03/13/21 08:59 Last Admin: 02/13/21 08:08 Dose: 2 patch Documented by: Lidocaine/Prilocaine (Lidocaine/Prilocaine 2.5% Ea Crm) 2 ea EXT DAILY PRN PRN Reason: Prophylaxis Stop: 03/15/21 10:46 Last Admin: 02/13/21 14:50 Dose: 2 ea Documented by: Metoprolol Tartrate (Metoprolol Tartrate 25 Mg Tab) 25 mg PO BID [facility] Stop: 03/13/21 01:22 Last Admin: 02/13/21 08:09 Dose: Not Given Documented by: Miscellaneous (Remove Lidoderm Patch) 1 ea N/A DAILY@2100 [facility] Stop: 03/13/21 20:59 Last Admin: 02/12/21 21:03 Dose: 1 ea Documented by: Miscellaneous (Carbohydrates For Hypoglycemia ) 15 - 30 gm PO UD PRN PRN Reason: Hypoglycemia Protocol Stop: 03/13/21 01:22 Multivitamins/Minerals (Cerovite Adv Formula Tab) 1 tab PO BID [facility] Stop: 03/13/21 08:59 Last Admin: 02/13/21 08:07 Dose: 1 tab Documented by: Ondansetron HCl (Ondansetron Inj 2 Mg/Ml 2 Ml Vial) 4 mg IV Q6H PRN PRN Reason: Nausea Stop: 03/13/21 01:22 Sertraline HCl (Sertraline Hcl 50 Mg Tablet) 25 mg PO QAM [facility] Stop: 03/13/21 08:59 Last Admin: 02/13/21 08:07 Dose: 25 mg Documented by: Vitamin B Complex/Folic Acid (Nephrocaps) 1 cap PO QAM [facility] Stop: 03/13/21 08:59 Last Admin: 02/13/21 08:07 Dose: 1 cap Documented by: Vitamin D (Cholecalciferol 1,000 Units 25 Mcg Tab) 1,000 units PO TuThSa@0900 [facility] Stop: 03/13/21 08:59 Last Admin: 02/13/21 08:07 Dose: 1,000 units Documented by: Warfarin Sodium (Warfarin Sod 4 Mg Tab) 4 mg PO QPM [facility] Stop: 03/13/21 20:59 Last Admin: 02/12/21 21:02 Dose: 4 mg Documented by: PG Care Time/CCT Total # of Minutes Spent Total Time Spent with Patient: Total time spent is greater than 50% in coordination of care (as documented) at patient's floor/unit and/or counseling patient: Coding Level of Care Code 98919 Subseq Hosp Care Lvl 2 Diagnoses Infection due to ESBL-producing Escherichia coli A49.8; Z16.12 ESRD (end stage renal disease) on dialysis N18.6; Z99.2 Paroxysmal atrial fibrillation I48.0 Hyperlipidemia E78.5 Hyperlipidemia type: unspecified Hypertension I10 Hypothyroidism E03.9 Hypothyroidism type: acquired Vitamin D deficiency E55.9 DVT prophylaxis Z29.9 (1) Hyperlipidemia Hyperlipidemia type: unspecified Qualified Code(s): E78.5 - Hyperlipidemia, unspecified (2) Hypothyroidism Hypothyroidism type: acquired Qualified Code(s): E03.9 - Hypothyroidism, unspecified
[2021-02-13] MEDS: WARFARIN SOD 4 MG TAB PO SCH (20:24)
[2021-02-13] MEDS: GABAPENTIN 400 MG CAP PO SCH (20:27)
[2021-02-13] MEDS: ATORVASTATIN 10 MG TAB PO SCH (20:27)
[2021-02-13] MEDS: ERTAPENEM SODIUM 500 MG in SODIUM CHLORIDE 0.9% 50 ML IV SCH (22:27)
[2021-02-14] MEDS: LEVOTHYROXINE SODIUM 112 MCG TABLET PO SCH (06:01)
[2021-02-14 07:57] LABS: INR 1.4 (0.9-1.1); Prothrombin Time 13.7 Seconds (9.0-12.0)
[2021-02-14 08:23] LABS: BUN Creatinine Ratio 8.1 (10-20); Calcium 8.8 mg/dl (8.5-10.1); Creatinine Clr Calc Pharmacy 6.4 ml/min; Est GFR (African American) 5.9; Est GFR (Non-African American) 5.1; Potassium 4.6 mmol/L (3.5-5.1)
[2021-02-14] MEDS: INSULIN ASPART 100 UNITS/ML 3 ML PEN SC SCH ×4 (08:31→21:04)
[2021-02-14] MEDS: LIDOCAINE/PRILOCAINE 2.5% EA CRM EXT PRN (08:33)
[2021-02-14] MEDS: hydrALAZINE TAB 50 MG TAB PO SCH ×2 (08:56→21:00)
[2021-02-14] MEDS: METOPROLOL TARTRATE 25 MG TAB PO SCH ×2 (08:56→21:00)
[2021-02-14] MEDS: amLODIPine BESYLATE 5 MG TAB PO SCH (08:56)
[2021-02-14] MEDS: SERTRALINE HCL 50 MG TABLET PO SCH (09:08)
[2021-02-14] MEDS: CEROVITE ADV FORMULA TAB PO SCH ×2 (09:10→21:03)
[2021-02-14] MEDS: GABAPENTIN 100 MG CAP PO SCH (09:13)
[2021-02-14] MEDS: NEPHROCAPS PO SCH (09:13)
[2021-02-14] MEDS: LIDOCAINE 5% 1 PATCH TD SCH (09:14)
--- NOTE | 2021-02-14 10:41 | Hospitalist Progress Note ---
Date of Service February 14, 2021 Assessment & Plan (1) Infection due to ESBL-producing Escherichia coli: Patient with recurrent ESBL urinary tract infection Isolation protocol with contact precautions Straight cath urine culture with gram-negative bacilli Clean-catch urine culture with diphtheroids Day #5 ertapenem Afebrile Continue to follow (2) ESRD (end stage renal disease) on dialysis: Hemodialysis Monday, , Monday Patient tolerated dialysis well yesterday Dialysis tomorrow and Monday Anticipate discharge to [facility] on Monday New dialysis schedule be Monday Further management per nephrology (3) Paroxysmal atrial fibrillation: Continue metoprolol Anticoagulated with warfarin (4) Hyperlipidemia: Continue atorvastatin Outpatient management (5) Hypertension: Hemodynamically stable Continue home antihypertensives and follow (6) Hypothyroidism: Continue levothyroxine Outpatient management (7) Vitamin D deficiency: Continue vitamin D repletion Monday and Saturdays Outpatient management (8) DVT prophylaxis: Anticoagulated chronically on Coumadin Follow INR per protocol Admission and Anticipated Discharge Date Admission Date: February 12, 2021 Subjective Attending: Dr. Recinos Patient seen and examined at bedside. She is doing well today and in good spirits. She denies any fever or chills. Confusion is intermittent and comes and goes per nursing. She had dialysis yesterday with infiltration of the AV fistula. They will be discussing further dialysis today or tomorrow. Anticipated discharge to [facility] on Monday for therapy. No other acute complaints from the patient. Review of Systems Review of Systems: All systems reviewed & are unremarkable except as noted in Subjective Physical Exam Physical Exam: GENERAL : No acute distress EYES: No icterus, gaze conjugate NOSE: No evidence of epistaxis MOUTH: No lesions or candidiasis NECK: Supple LUNGS: CTA B/L, no wheezes, rales or rhonchi HEART: Regular, rate controlled ABDOMEN: Soft, NT, ND, BS Present EXTREMITIES: No LE edema, pedal pulses intact NEURO: A&OX3 Results & Data Results & Data ([facility]) Vital Signs (Past 12 Hours) Vital Signs Temp Pulse Pulse Resp BP Pulse Ox 02/14/21 07:41 36.6 C 54 L 16 123/61 92 02/14/21 03:33 36.6 C 54 L 16 150/66 H 93 02/13/21 23:28 36.7 C 56 L 18 138/67 95 Laboratory Results 02/13/21 08:56 02/14/21 07:30 Diagnostic Findings No further diagnostic imaging PG Care Time/CCT Total # of Minutes Spent Total Time Spent with Patient: Total time spent is greater than 50% in coordination of care (as documented) at patient's floor/unit and/or counseling patient: Coding Level of Care Code 05110 Subseq Hosp Care Lvl 2 Diagnoses Infection due to ESBL-producing Escherichia coli A49.8; Z16.12 ESRD (end stage renal disease) on dialysis N18.6; Z99.2 Paroxysmal atrial fibrillation I48.0 Hyperlipidemia E78.5 Hyperlipidemia type: unspecified Hypertension I10 Hypothyroidism E03.9 Hypothyroidism type: acquired Vitamin D deficiency E55.9 DVT prophylaxis Z29.9 (1) Hyperlipidemia Hyperlipidemia type: unspecified Qualified Code(s): E78.5 - Hyperlipidemia, unspecified (2) Hypothyroidism Hypothyroidism type: acquired Qualified Code(s): E03.9 - Hypothyroidism, unspecified
--- NOTE | 2021-02-14 11:15 | Nephrology Progress Note ---
Date of Service February 14, 2021 Assessment & Plan (1) ESRD on dialysis: ESRD due to DKD. Shauna had been HD TTS at [facility] but current plan is to transition to [facility] to match [place] transportation schedule. Missed treatment yesterday due to infiltration of needle during treatment. No emergent indication for treatment today. Will plan HD tomorrow per new schedule. AVF feels good this AM with adequate thrill and bruit. EMLA cream was placed this AM in anticipation of possible HD. This may be removed and reapplied tomorrow AM. Volume status and blood pressure are currently acceptable. Renal diet. Encourage protein intake. Nephrocaps daily. Medications are appropriately dosed for kidney function. Tolerating large dose of gabapentin. (2) Infection due to ESBL-producing Escherichia coli: Remains on Etrapenem. (3) Nontraumatic compression fracture of lumbar vertebra: Pain control appropriate. (4) Anemia in chronic kidney disease (CKD): Epogen 4000 units with HD tomorrow. Admission and Anticipated Discharge Date Admission Date: February 12, 2021 Subjective No acute events overnight. Shauna feels well this AM. Intermittent confusion reported per nursing. A&Ox3 at my assessment. Shauna reports frustration regarding failed attempts at HD yesterday. She remains very anxious to be discharged. She is breathing comfortably. Denies any arm pain. AVF infiltrated very early into treatment yesterday morning. On repeat assessment yesterday afternoon, AVF was not able to be accessed. Review of Systems Review of Systems: All systems reviewed & are unremarkable except as noted in HPI & below Physical Exam Constitutional: well developed; no acute distress Eyes: no scleral abnormality and no corneal abnormality ENMT: Mouth: no oral mucosal abnormality and oral mucous membranes not dry Neck: normal visual inspection and trachea midline Respiratory: normal respiratory effort Auscultation: lungs clear to auscultation bilaterally Cardiovascular: Rate/Rhythm: regular rate Heart Sounds: normal S1 and normal S2 Extremities: + AV fistula; no edema Musculoskeletal: Extremities: no cyanosis and no clubbing Skin: normal turgor; no lesions Neurologic: Motor/Sensory: no tremor and no asterixis Psychiatric: Orientation: alert and oriented x 3 Results & Data ([facility]) Vital Signs (Past 12 Hours) Vital Signs Temp Pulse Pulse Resp BP Pulse Ox 02/14/21 07:41 36.6 C 54 L 16 123/61 92 04/18/21 03:33 36.6 C 54 L 16 150/66 H 93 02/13/21 23:28 36.7 C 56 L 18 138/67 95 Laboratory Results Laboratory Results - last 24 hr 02/13/21 02/13/21 02/13/21 11:06 16:57 20:13 PT INR Sodium Potassium Chloride Carbon Dioxide Anion Gap BUN Creatinine Est Cr Clr Drug Dosing Est GFR ( Amer) Est GFR (Non-Af Amer) BUN/Creatinine Ratio Glucose POC Glucose 166 H 150 H 200 H Calcium Hep Bs Antigen 02/14/21 02/14/21 02/14/21 07:30 07:30 07:30 PT 13.7 H INR 1.4 H Sodium 140 Potassium 4.6 Chloride 105 Carbon Dioxide 25 Anion Gap 9.0 BUN 54 H Creatinine 6.62 H* D Est Cr Clr Drug Dosing 6.4 Est GFR ( Amer) 5.9 Est GFR (Non-Af Amer) 5.1 BUN/Creatinine Ratio 8.1 L Glucose 120 H POC Glucose Calcium 8.8 Hep Bs Antigen Neg 02/14/21 07:40 PT INR Sodium Potassium Chloride Carbon Dioxide Anion Gap BUN Creatinine Est Cr Clr Drug Dosing Est GFR ( Amer) Est GFR (Non-Af Amer) BUN/Creatinine Ratio Glucose POC Glucose 124 H Calcium Hep Bs Antigen PG Care Time/CCT Total # of Minutes Spent Total Time Spent with Patient: Total time spent is greater than 50% in coordination of care (as documented) at patient's floor/unit and/or counseling patient: Coding Level of Care Code 13304 Subseq Hosp Care Lvl 3 Diagnoses ESRD on dialysis N18.6; Z99.2 Infection due to ESBL-producing Escherichia coli A49.8; Z16.12 Nontraumatic compression fracture of lumbar vertebra M48.56XA Anemia in chronic kidney disease (CKD) N18.9; D63.1
[2021-02-14] MEDS: WARFARIN SOD 4 MG TAB PO SCH (21:03)
[2021-02-14] MEDS: GABAPENTIN 300 MG CAP PO SCH (21:04)
[2021-02-14] MEDS: ATORVASTATIN 10 MG TAB PO SCH (21:09)
[2021-02-14] MEDS: ERTAPENEM SODIUM 500 MG in SODIUM CHLORIDE 0.9% 50 ML IV SCH (22:46)
[2021-02-15] MEDS: LEVOTHYROXINE SODIUM 112 MCG TABLET PO SCH (06:08)
[2021-02-15 06:41] LABS: INR 1.4 (0.9-1.1); Prothrombin Time 13.5 Seconds (9.0-12.0)
[2021-02-15 06:42] LABS: Hematocrit (blood only) 30.3 % (37-47); Hemoglobin 10.1 g/dL (12.0-16.0)
[2021-02-15 07:20] LABS: BUN Creatinine Ratio 8.8 (10-20); Calcium 8.4 mg/dl (8.5-10.1); Creatinine Clr Calc Pharmacy 5.5 ml/min; Est GFR (African American) 4.9; Est GFR (Non-African American) 4.2; Potassium 4.8 mmol/L (3.5-5.1)
[2021-02-15] MEDS: hydrALAZINE TAB 50 MG TAB PO SCH ×2 (08:28→20:45)
[2021-02-15] MEDS: amLODIPine BESYLATE 5 MG TAB PO SCH (08:28)
[2021-02-15] MEDS: METOPROLOL TARTRATE 25 MG TAB PO SCH ×2 (08:28→20:45)
[2021-02-15] MEDS: SERTRALINE HCL 50 MG TABLET PO SCH (08:31)
[2021-02-15] MEDS: CEROVITE ADV FORMULA TAB PO SCH ×2 (08:31→20:41)
[2021-02-15] MEDS: LIDOCAINE/PRILOCAINE 2.5% EA CRM EXT PRN (08:31)
[2021-02-15] MEDS: INSULIN ASPART 100 UNITS/ML 3 ML PEN SC SCH ×4 (08:32→20:46)
[2021-02-15] MEDS: GABAPENTIN 100 MG CAP PO SCH (08:38)
[2021-02-15] MEDS: NEPHROCAPS PO SCH (08:38)
[2021-02-15] MEDS: LIDOCAINE 5% 1 PATCH TD SCH (08:38)
--- NOTE | 2021-02-15 09:30 | Nephrology Progress Note ---
Date of Service February 15, 2021 Assessment & Plan (1) ESRD on dialysis: ESRD due to DKD. Previously TTS at [facility] but now switched to MWF to match [place] transportation. Orders for HD today entered into EMR and reviewed with HD nurse. 16 g needles. AVF infiltrated on Monday but looks good today. Qb acceptable. UF goal 1.5-2 L. Volume status and blood pressure are currently acceptable. Renal diet. Encourage protein intake. Nephrocaps daily. Medications are appropriately dosed for kidney function. Tolerating large dose of gabapentin. (2) Infection due to ESBL-producing Escherichia coli: Remains on Etrapenem. (3) Nontraumatic compression fracture of lumbar vertebra: Pain control appropriate. (4) Anemia in chronic kidney disease (CKD): Epogen 4000 units with HD. Admission and Anticipated Discharge Date Admission Date: February 12, 2021 Subjective No acute events overnight. Shauna was seen and evaluated prior to and during hemodialysis this morning. AVF accessed with 16 g needles without complications. Shauna feels well. She hopes to be discharged tomorrow. Qb acceptable. Review of Systems Review of Systems: All systems reviewed & are unremarkable except as noted in HPI & below Physical Exam Constitutional: well developed; no acute distress Eyes: no scleral abnormality and no corneal abnormality ENMT: Mouth: no oral mucosal abnormality and oral mucous membranes not dry Neck: normal visual inspection and trachea midline Respiratory: normal respiratory effort Auscultation: lungs clear to auscultation bilaterally Cardiovascular: Rate/Rhythm: regular rate Heart Sounds: normal S1 and normal S2 Extremities: + AV fistula; no edema Musculoskeletal: Extremities: no cyanosis and no clubbing Skin: normal turgor; no lesions Neurologic: Motor/Sensory: no tremor and no asterixis Psychiatric: Orientation: alert and oriented x 3 Results & Data ([facility]) Vital Signs (Past 12 Hours) Vital Signs Temp Pulse Pulse Resp BP Pulse Ox 02/15/21 08:00 36.6 C 59 L 18 129/67 92 02/15/21 03:57 62 02/15/21 03:00 36.5 C 59 L 16 131/66 94 02/14/21 22:21 36.8 C 66 16 149/63 H 93 Laboratory Results Laboratory Results - last 24 hr 02/14/21 02/14/21 02/14/21 11:27 16:41 20:26 Hgb Hct PT INR Sodium Potassium Chloride Carbon Dioxide Anion Gap BUN Creatinine Est Cr Clr Drug Dosing Est GFR ( Amer) Est GFR (Non-Af Amer) BUN/Creatinine Ratio Glucose POC Glucose 161 H 182 H 170 H Calcium 02/15/21 02/15/21 02/15/21 05:59 05:59 05:59 Hgb 10.1 L Hct 30.3 L PT 13.5 H INR 1.4 H Sodium 142 Potassium 4.8 Chloride 108 H Carbon Dioxide 25 Anion Gap 9.0 BUN 68 H Creatinine 7.69 H* D Est Cr Clr Drug Dosing 5.5 Est GFR ( Amer) 4.9 Est GFR (Non-Af Amer) 4.2 BUN/Creatinine Ratio 8.8 L Glucose 106 H POC Glucose Calcium 8.4 L 02/15/21 08:29 Hgb Hct PT INR Sodium Potassium Chloride Carbon Dioxide Anion Gap BUN Creatinine Est Cr Clr Drug Dosing Est GFR ( Amer) Est GFR (Non-Af Amer) BUN/Creatinine Ratio Glucose POC Glucose 149 H Calcium PG Care Time/CCT Total # of Minutes Spent Total Time Spent with Patient: Total time spent is greater than 50% in coordination of care (as documented) at patient's floor/unit and/or counseling patient: Coding Level of Care Code 81448 Subseq Hosp Care Lvl 3 Diagnoses ESRD on dialysis N18.6; Z99.2 Infection due to ESBL-producing Escherichia coli A49.8; Z16.12 Nontraumatic compression fracture of lumbar vertebra M48.56XA Anemia in chronic kidney disease (CKD) N18.9; D63.1
[2021-02-15] MEDS: ACETAMINOPHEN 325 MG TAB PO PRN (12:44)
[2021-02-15] MEDS ORDERED: WARFARIN SOD 3 MG TAB PO ONE (16:00)
[2021-02-15] MEDS: WARFARIN SOD 4 MG TAB PO SCH (20:41)
[2021-02-15] MEDS: GABAPENTIN 300 MG CAP PO SCH (20:43)
[2021-02-15] MEDS: ATORVASTATIN 10 MG TAB PO SCH (20:43)
--- NOTE | 2021-02-15 21:03 | Hospitalist Progress Note ---
Date of Service February 15, 2021 Assessment & Plan (1) Infection due to ESBL-producing Escherichia coli: history of recurrent ESBL urinary tract infections. Straight cath urine culture this admission with gram-negative bacill, <10,000 CFU however.i Day #5 IV ertapenem. Afebrile and without signs/symptoms of infection. thus, d/c ertapenem today. (2) ESRD (end stage renal disease) on dialysis: previous Hemodialysis schedule was Monday, , Monday Patient tolerated dialysis well today although had some difficulty accessing the fistula over the weekend New dialysis schedule is now Monday and will be such upon discharge to [facility] appreciate nephrology assistance (3) Paroxysmal atrial fibrillation: Continue metoprolol, rates controlled Anticoagulated with warfarin INR <2 for several days; will give additional 3mg of coumadin on top of usual 4mg dose repeat INR am tele stable (4) Hyperlipidemia: Continue atorvastatin (5) Hypertension: Hemodynamically stable/controlled Continue home antihypertensives (6) Hypothyroidism: Continue levothyroxine TSH 3.4 in 07/2020 (7) Vitamin D deficiency: Continue vitamin D repletion Monday and Saturdays most recent 25-OH vitamin D level wnl (8) Nontraumatic compression fracture of lumbar vertebra: L4 pain controlled (9) DVT prophylaxis: Anticoagulated chronically on Coumadin INR 1.4 - see above family updated by phone today care d/w Dr Tripathi from nephrology Admission and Anticipated Discharge Date Admission Date: February 12, 2021 Subjective patient denies complaints she states that HD today was cut short a little because of "clots" otherwise feeling ok tele overnight wnl denies any lumbar back pain Review of Systems Constitutional: + anorexia (Eats small meals chronically); no fever and no chills Respiratory: no cough and no dyspnea Cardiovascular: no chest pain Gastrointestinal: no abdominal pain Physical Exam Constitutional: no acute distress and no altered mental status ENMT: external ear and nose normal, oropharynx normal Respiratory: no respiratory distress Auscultation: + rales; no wheezes Cardiovascular: Rate/Rhythm: regular rate and regular rhythm Heart Sounds: normal S1, normal S2 and + murmur Vessels: posterior tibial pulses present and dorsalis pedis pulses present; no JVD Extremities: + AV fistula; no edema Gastrointestinal (Abdomen): normal bowel sounds, soft, nontender, no hepatosplenomegaly Psychiatric: Orientation: alert and oriented x 3 Results & Data Results & Data ([facility]) Vital Signs (Past 12 Hours) Vital Signs Temp Pulse Pulse Pulse Resp BP BP 02/15/21 20:44 66 157/69 H 02/15/21 19:22 36.6 C 65 16 178/66 H 02/15/21 16:00 65 02/15/21 15:29 36.6 C 64 18 118/63 02/15/21 12:00 36.6 C 57 L 57 L 124/53 L 124/53 L 02/15/21 11:40 57 L 115/53 L 02/15/21 11:20 57 L 121/50 L 02/15/21 11:00 52 L 92/55 L 02/15/21 10:40 58 L 130/60 02/15/21 10:20 56 L 136/60 02/15/21 10:00 57 L 129/54 L 02/15/21 09:40 59 L 107/52 L 02/15/21 09:20 58 L 117/49 L 02/15/21 09:17 61 127/52 L 02/15/21 09:12 36.4 C L 61 Pulse Ox 02/15/21 20:44 02/15/21 19:22 96 02/15/21 16:00 02/15/21 15:29 94 02/15/21 12:00 02/15/21 11:40 02/15/21 11:20 02/15/21 11:00 02/15/21 10:40 02/15/21 10:20 02/15/21 10:00 02/15/21 09:40 02/15/21 09:20 02/15/21 09:17 02/15/21 09:12 Laboratory Results Laboratory Results - last 24 hr 02/15/21 02/15/21 02/15/21 05:59 05:59 05:59 Hgb 10.1 L Hct 30.3 L PT 13.5 H INR 1.4 H Sodium 142 Potassium 4.8 Chloride 108 H Carbon Dioxide 25 Anion Gap 9.0 BUN 68 H Creatinine 7.69 H* D Est Cr Clr Drug Dosing 5.5 Est GFR ( Amer) 4.9 Est GFR (Non-Af Amer) 4.2 BUN/Creatinine Ratio 8.8 L Glucose 106 H POC Glucose Calcium 8.4 L 02/15/21 02/15/21 02/15/21 08:29 11:59 16:46 Hgb Hct PT INR Sodium Potassium Chloride Carbon Dioxide Anion Gap BUN Creatinine Est Cr Clr Drug Dosing Est GFR ( Amer) Est GFR (Non-Af Amer) BUN/Creatinine Ratio Glucose POC Glucose 149 H 167 H 169 H Calcium 02/15/21 20:40 Hgb Hct PT INR Sodium Potassium Chloride Carbon Dioxide Anion Gap BUN Creatinine Est Cr Clr Drug Dosing Est GFR ( Amer) Est GFR (Non-Af Amer) BUN/Creatinine Ratio Glucose POC Glucose 198 H Calcium PG Care Time/CCT Total # of Minutes Spent Total Time Spent with Patient: Total time spent is greater than 50% in coordination of care (as documented) at patient's floor/unit and/or counseling patient: Coding Level of Care Code 97424 Subseq Hosp Care Lvl 2 Diagnoses Infection due to ESBL-producing Escherichia coli A49.8; Z16.12 ESRD (end stage renal disease) on dialysis N18.6; Z99.2 Paroxysmal atrial fibrillation I48.0 Hyperlipidemia E78.5 Hyperlipidemia type: unspecified Hypertension I10 Hypothyroidism E03.9 Hypothyroidism type: acquired Vitamin D deficiency E55.9 Nontraumatic compression fracture of lumbar vertebra M48.56XA DVT prophylaxis Z29.9 (1) Hyperlipidemia Hyperlipidemia type: unspecified Qualified Code(s): E78.5 - Hyperlipidemia, unspecified (2) Hypothyroidism Hypothyroidism type: acquired Qualified Code(s): E03.9 - Hypothyroidism, unspecified
[2021-02-16] MEDS: LEVOTHYROXINE SODIUM 112 MCG TABLET PO SCH (05:05)
[2021-02-16 06:35] LABS: INR 1.4 (0.9-1.1)
[2021-02-16] MEDS: INSULIN ASPART 100 UNITS/ML 3 ML PEN SC SCH ×4 (08:41→20:26)
[2021-02-16] MEDS: LIDOCAINE 5% 1 PATCH TD SCH (08:46)
[2021-02-16] MEDS: CHOLECALCIFEROL 1,000 UNITS 25 MCG TAB PO SCH (08:46)
[2021-02-16] MEDS: amLODIPine BESYLATE 5 MG TAB PO SCH (08:46)
[2021-02-16] MEDS: GABAPENTIN 100 MG CAP PO SCH (08:46)
[2021-02-16] MEDS: CEROVITE ADV FORMULA TAB PO SCH ×2 (08:46→20:47)
[2021-02-16] MEDS: SERTRALINE HCL 50 MG TABLET PO SCH (08:46)
[2021-02-16] MEDS: hydrALAZINE TAB 50 MG TAB PO SCH ×2 (08:47→20:46)
[2021-02-16] MEDS: METOPROLOL TARTRATE 25 MG TAB PO SCH ×2 (08:47→20:46)
[2021-02-16] MEDS: NEPHROCAPS PO SCH (08:47)
--- NOTE | 2021-02-16 10:16 | Nephrology Progress Note ---
Date of Service February 16, 2021 Assessment & Plan (1) ESRD on dialysis: ESRD due to DKD. Previously TTS at [facility] but now switched to MWF to match transportation schedule for [facility]. Unfortunately, based on notes from care coordination, disposition is unclear at this time. Volume status and blood pressure are currently acceptable. Clearance reasonable with HD. AVF functioning well with 16 g needles. Next anticipated HD tomorrow. Renal diet. Encourage protein intake. Nephrocaps daily. Medications are appropriately dosed for kidney function. Tolerating large dose of gabapentin. (2) Infection due to ESBL-producing Escherichia coli: Remains on Etrapenem. (3) Nontraumatic compression fracture of lumbar vertebra: Pain control appropriate. (4) Anemia in chronic kidney disease (CKD): Epogen 4000 units with HD. Admission and Anticipated Discharge Date Admission Date: February 12, 2021 Subjective No acute events overnight. Shauna feels well this AM. She hopes to be discharged today. Tolerated HD yesterday well. Treatment stopped short due to clotting in filter. AVF functioned well. Reasonable UF achieved. Volume status acceptable. Review of Systems Review of Systems: All systems reviewed & are unremarkable except as noted in HPI & below Physical Exam Constitutional: well developed; no acute distress Eyes: no scleral abnormality and no corneal abnormality ENMT: Mouth: no oral mucosal abnormality and oral mucous membranes not dry Neck: normal visual inspection and trachea midline Respiratory: normal respiratory effort Auscultation: lungs clear to auscultation bilaterally Cardiovascular: Rate/Rhythm: regular rate Heart Sounds: normal S1 and normal S2 Extremities: + AV fistula; no edema Musculoskeletal: Extremities: no cyanosis and no clubbing Skin: normal turgor; no lesions Neurologic: Motor/Sensory: no tremor and no asterixis Psychiatric: Orientation: alert and oriented x 3 Results & Data ([facility]) Vital Signs (Past 12 Hours) Vital Signs Temp Pulse Pulse Pulse Resp BP Pulse Ox 02/16/21 08:00 36.5 C 55 L 20 91/47 L 94 02/16/21 03:35 36.5 C 54 L 18 103/49 L 93 02/15/21 22:20 57 L Laboratory Results Laboratory Results - last 24 hr 02/15/21 02/15/21 02/15/21 11:59 16:46 20:40 PT INR POC Glucose 167 H 169 H 198 H 02/16/21 02/16/21 06:03 07:28 PT 14.0 H INR 1.4 H POC Glucose 123 H PG Care Time/CCT Total # of Minutes Spent Total Time Spent with Patient: Total time spent is greater than 50% in coordination of care (as documented) at patient's floor/unit and/or counseling patient: Coding Level of Care Code 72149 Subseq Hosp Care Lvl 3 Diagnoses ESRD on dialysis N18.6; Z99.2 Infection due to ESBL-producing Escherichia coli A49.8; Z16.12 Nontraumatic compression fracture of lumbar vertebra M48.56XA Anemia in chronic kidney disease (CKD) N18.9; D63.1
[2021-02-16] MEDS: ACETAMINOPHEN 325 MG TAB PO PRN (13:54)
[2021-02-16] MEDS ORDERED: WARFARIN SOD 2 MG TAB PO ONE (16:00)
--- NOTE | 2021-02-16 18:45 | Hospitalist Progress Note ---
Date of Service February 16, 2021 Assessment & Plan (1) Infection due to ESBL-producing Escherichia coli: history of recurrent ESBL urinary tract infections. Straight cath urine culture this admission with gram-negative bacill, <10,000 CFU however. Completed 5-day course of IV ertapenem. Afebrile and without signs/symptoms of infection. Ertapenem has been d/c. (2) ESRD (end stage renal disease) on dialysis: previous Hemodialysis schedule was Monday, , Monday New dialysis schedule is now Monday and will be such upon discharge to SNF appreciate nephrology assistance HD tomorrow (3) Paroxysmal atrial fibrillation: Continue metoprolol, rates controlled Anticoagulated with warfarin INR still <2 for several days; will give additional 2mg of coumadin on top of usual 4mg dose repeat INR am tele stable (4) Hyperlipidemia: Continue atorvastatin (5) Hypertension: Hemodynamically stable/controlled Continue home antihypertensives (6) Hypothyroidism: Continue levothyroxine TSH 3.4 in 07/2020 (7) Vitamin D deficiency: Continue vitamin D repletion Monday and Saturdays most recent 25-OH vitamin D level wnl (8) Nontraumatic compression fracture of lumbar vertebra: L4 pain controlled neuro exam of legs - strength 5/5 bl (9) DVT prophylaxis: Anticoagulated chronically on Coumadin INR 1.4 - see above family updated by phone yesterday awaiting placement Admission and Anticipated Discharge Date Admission Date: February 12, 2021 Subjective patient resting comfortably during the visit no complaints today ready to get out of hospital and to SNF for rehab tele overnight wnl Review of Systems Constitutional: no fever and no chills Respiratory: no cough and no dyspnea Cardiovascular: no chest pain and no orthopnea Gastrointestinal: no abdominal pain, no nausea and no vomiting Physical Exam Constitutional: no acute distress and no altered mental status ENMT: external ear and nose normal, oropharynx normal Respiratory: no respiratory distress Auscultation: + rales (scant bases ); no wheezes Cardiovascular: Rate/Rhythm: regular rate and regular rhythm Heart Sounds: normal S1, normal S2 and + murmur (RUSB, systolic, 1/6) Vessels: posterior tibial pulses present and dorsalis pedis pulses present; no JVD Extremities: + AV fistula (left arm - bruit & thrill present ); no edema Gastrointestinal (Abdomen): normal bowel sounds, soft, nontender, no hepatosplenomegaly Skin: 2 subcutaneous masses on abdominal wall - freely mobile - calcified lipomas? Psychiatric: Orientation: alert and oriented x 3 Results & Data Results & Data ([facility]) Vital Signs (Past 12 Hours) Vital Signs Temp Pulse Resp BP Pulse Ox 02/16/21 14:53 36.5 C 62 20 113/56 L 93 02/16/21 11:08 36.4 C L 58 L 20 112/50 L 94 02/16/21 08:00 36.5 C 55 L 20 91/47 L 94 Laboratory Results Laboratory Results - last 24 hr 02/12/21 02/15/21 02/16/21 05:41 20:40 06:03 PT 14.0 H INR 1.4 H POC Glucose 198 H Hepatitis Be Antigen Cancelled 02/16/21 02/16/21 02/16/21 07:28 11:32 16:18 PT INR POC Glucose 123 H 195 H 157 H Hepatitis Be Antigen PG Care Time/CCT Total # of Minutes Spent Total Time Spent with Patient: Total time spent is greater than 50% in coordination of care (as documented) at patient's floor/unit and/or counseling patient: Coding Level of Care Code 47419 Subseq Hosp Care Lvl 2 Diagnoses Infection due to ESBL-producing Escherichia coli A49.8; Z16.12 ESRD (end stage renal disease) on dialysis N18.6; Z99.2 Paroxysmal atrial fibrillation I48.0 Hyperlipidemia E78.5 Hyperlipidemia type: unspecified Hypertension I10 Hypertension type: essential hypertension Hypothyroidism E03.9 Hypothyroidism type: acquired Vitamin D deficiency E55.9 Nontraumatic compression fracture of lumbar vertebra M48.56XA DVT prophylaxis Z29.9 (1) Hyperlipidemia Hyperlipidemia type: unspecified Qualified Code(s): E78.5 - Hyperlipidemia, unspecified (2) Hypothyroidism Hypothyroidism type: acquired Qualified Code(s): E03.9 - Hypothyroidism, unspecified (3) Hypertension Hypertension type: essential hypertension Qualified Code(s): I10 - Essential (primary) hypertension
[2021-02-16] MEDS: ATORVASTATIN 10 MG TAB PO SCH (20:46)
[2021-02-16] MEDS: GABAPENTIN 400 MG CAP PO SCH (20:46)
[2021-02-16] MEDS: WARFARIN SOD 4 MG TAB PO SCH (20:47)
[2021-02-17] MEDS: LEVOTHYROXINE SODIUM 112 MCG TABLET PO SCH (06:14)
[2021-02-17 06:41] LABS: INR 1.5 (0.9-1.1); Prothrombin Time 14.5 Seconds (9.0-12.0)
[2021-02-17 07:09] LABS: BUN Creatinine Ratio 9.7 (10-20); Calcium 8.5 mg/dl (8.5-10.1); Creatinine Clr Calc Pharmacy 5.1 ml/min; Est GFR (African American) 4.5; Est GFR (Non-African American) 3.8; Potassium 4.8 mmol/L (3.5-5.1)
[2021-02-17] MEDS: ACETAMINOPHEN 325 MG TAB PO PRN ×2 (07:17→14:20)
[2021-02-17] MEDS: LIDOCAINE 5% 1 PATCH TD SCH (07:18)
[2021-02-17] MEDS: SERTRALINE HCL 50 MG TABLET PO SCH (07:18)
[2021-02-17] MEDS: NEPHROCAPS PO SCH (07:19)
[2021-02-17] MEDS: hydrALAZINE TAB 50 MG TAB PO SCH (07:19)
[2021-02-17] MEDS: amLODIPine BESYLATE 5 MG TAB PO SCH (07:19)
[2021-02-17] MEDS: GABAPENTIN 100 MG CAP PO SCH (07:19)
[2021-02-17] MEDS: METOPROLOL TARTRATE 25 MG TAB PO SCH (07:19)
[2021-02-17] MEDS: CEROVITE ADV FORMULA TAB PO SCH (07:19)
[2021-02-17] MEDS: INSULIN ASPART 100 UNITS/ML 3 ML PEN SC SCH ×2 (08:04→12:15)
[2021-02-17] MEDS ORDERED: SODIUM CHLORIDE 0.9% 1000ML 1,000 ML IV PRN (08:35)
[2021-02-17] MEDS ORDERED: HEPARIN SOD (PORCINE) 1000 UNIT/ML IV ONE (08:35)
[2021-02-17] MEDS: HEPARIN SOD (PORCINE) 1000 UNIT/ML IV SCH ×2 (10:53→10:54)
--- NOTE | 2021-02-17 12:19 | Nephrology Progress Note ---
Date of Service February 17, 2021 Assessment & Plan (1) ESRD on dialysis: ESRD due to DKD. Previously TTS at [facility] but now switched to MWF to match transportation schedule for [facility]. Unfortunately, in the inpatient setting we have been unsuccessful at venous needle insertion for HD. Infiltration not severe. Adequate thrill and bruit. I discussed concerns with vascular surgery this morning. Will obtain US. However, dialysis access should not preclude potential discharge and can be coordinated as outpatient as needed. Volume status and BP acceptable. Renal diet. Encourage protein intake. Nephrocaps daily. Medications are appropriately dosed for kidney function. Tolerating large dose of gabapentin. (2) Infection due to ESBL-producing Escherichia coli: Remains on Etrapenem. (3) Nontraumatic compression fracture of lumbar vertebra: Pain control appropriate. (4) Anemia in chronic kidney disease (CKD): Epogen 4000 units with HD. Admission and Anticipated Discharge Date Admission Date: February 12, 2021 Subjective No acute events overnight. Shauna was very frustrated this AM. Attempts at venous needle insertion for dialysis were unsuccessful. Shauna otherwise feels well and continues to ask why she is still in the hospital. Review of Systems Review of Systems: All systems reviewed & are unremarkable except as noted in HPI & below Physical Exam Constitutional: well developed; no acute distress Eyes: no scleral abnormality and no corneal abnormality ENMT: Mouth: no oral mucosal abnormality and oral mucous membranes not dry Neck: normal visual inspection and trachea midline Respiratory: normal respiratory effort Auscultation: lungs clear to auscultation bilaterally Cardiovascular: Rate/Rhythm: regular rate Heart Sounds: normal S1 and normal S2 Extremities: + AV fistula; no edema Musculoskeletal: Extremities: no cyanosis and no clubbing Skin: normal turgor; no lesions Neurologic: Motor/Sensory: no tremor and no asterixis Psychiatric: Orientation: alert and oriented x 3 Results & Data ([facility]) Vital Signs (Past 12 Hours) Vital Signs Temp Pulse Pulse Pulse Resp BP Pulse Ox 02/17/21 11:47 36.3 C L 54 L 16 127/57 L 96 02/17/21 07:56 36.3 C L 57 L 16 132/66 92 02/17/21 03:48 36.5 C 59 L 18 118/53 L 93 02/17/21 01:07 64 Laboratory Results Laboratory Results - last 24 hr 02/16/21 02/16/21 02/17/21 16:18 20:16 06:06 PT 14.5 H INR 1.5 H Sodium Potassium Chloride Carbon Dioxide Anion Gap BUN Creatinine Est Cr Clr Drug Dosing Est GFR ( Amer) Est GFR (Non-Af Amer) BUN/Creatinine Ratio Glucose POC Glucose 157 H 153 H Calcium 02/17/21 02/17/21 02/17/21 06:06 07:22 11:35 PT INR Sodium 139 Potassium 4.8 Chloride 107 Carbon Dioxide 22 Anion Gap 10.0 BUN 82 H Creatinine 8.33 H* Est Cr Clr Drug Dosing 5.1 Est GFR ( Amer) 4.5 Est GFR (Non-Af Amer) 3.8 BUN/Creatinine Ratio 9.7 L Glucose 109 H POC Glucose 112 H 154 H Calcium 8.5 PG Care Time/CCT Total # of Minutes Spent Total Time Spent with Patient: Total time spent is greater than 50% in coordination of care (as documented) at patient's floor/unit and/or counseling patient: Coding Level of Care Code 65615 Subseq Hosp Care Lvl 3 Diagnoses ESRD on dialysis N18.6; Z99.2 Infection due to ESBL-producing Escherichia coli A49.8; Z16.12 Nontraumatic compression fracture of lumbar vertebra M48.56XA Anemia in chronic kidney disease (CKD) N18.9; D63.1
--- NOTE | 2021-02-17 13:29 | Ultrasound Report ---
US hemodialysis access CLINICAL HISTORY: infiltration, failed tx COMPARISON STUDY: No previous studies for comparison. TECHNIQUE: Grayscale, color and duplex Doppler sonography of the left upper extremity AV fistula was performed. FINDINGS: Left upper extremity AV fistula is noted. This fistula is likely between the brachial arter y and cephalic vein. The AV fistula is patent. There is apparent narrowing adjacent to the arterial a nastomosis however velocities are within normal limits, ranging up to 236 cm/s. No adjacent hematoma is noted. No intraluminal thrombus is identified. IMPRESSION: Patent left upper extremity AV fistula. Possible stenosis adjacent to the arterial anast omosis however velocities are within normal limits. ACT 112: Negative or not required by law. Electronically signed by: Chai Chen M.D. 02/17/2021 1:28 PM
--- NOTE | 2021-02-17 16:10 | Discharge Summary ---
Date of Service date of admission - February 12, 2021 date of discharge - February 17, 2021 Admission HPI Per Admitting Provider The patient is a 89-year-old female with a past medical history including chronic anticoagulation with warfarin, closed fracture of shaft of humerus, pericardial effusion, proteinuria, macular degeneration, diabetes mellitus, CKD, paroxysmal atrial fibrillation, vitamin D deficiency, diabetic peripheral neuropathy, lumbar degenerative disc disease, thoracic degenerative disc disease, thoracic compression fracture, dialysis AV fistula malfunction, urinary tract infection, ESRD on HD, L4 vertebral compression fracture, gout, depression, hypothyroidism, hypertension, hyperlipidemia and arthritis. Patient and her have had caretakers at home who reported that his become more difficult to care for the patient. Patient has been referred by her daughter, caregivers, and office of aging to the emergency department to be assessed. There are concerns with the patient and may adequately take care of themselves in a present living environment. Principal Diagnosis UTI 2nd ESBL E. coli Discharge Exam Constitutional no acute distress and no altered mental status ENMT external ear and nose normal, oropharynx normal Respiratory no respiratory distress Auscultation: + rales (scant bases ); no wheezes Cardiovascular Rate/Rhythm: regular rate and regular rhythm Heart Sounds: normal S1, normal S2 and + murmur (RUSB, systolic, 1/6) Vessels: posterior tibial pulses present and dorsalis pedis pulses present; no JVD Extremities: + AV fistula (left arm - bruit & thrill present ); no edema Gastrointestinal (Abdomen) normal bowel sounds, soft, nontender, no hepatosplenomegaly Musculoskeletal no cyanosis or clubbing, extremities motor strength 5/5 Spine: no thoracic spinal tenderness and no lumbar spinal tenderness Psychiatric Orientation: alert and oriented x 3 Discharge Data Allergies Allergy/AdvReac Type Severity Reaction Status Date / Time No Known Allergies Allergy Verified 02/10/21 20:20 Consultations [facility] PT OT Ordered Studies Abdomen/Pelvis CT 02/10/21 18:39 CT OF THE ABDOMEN AND PELVIS WITHOUT CONTRAST CLINICAL HISTORY: Lower back pain. COMPARISON STUDY: CT of the abdomen and pelvis August 19, 2020 TECHNIQUE: Axial images of the abdomen and pelvis were obtained without IV con trast. Images were reviewed in the axial, sagittal, and coronal planes. Automated exposure control was utilized for the study. A dose lowering technique was utilized adhering to the principles of ALARA. FINDINGS: Evaluation of the abdomen and pelvis is suboptimal on this unenhanced examination. No pneumatosis, free air or portal venous gas is present. Lobulated contour of the liver surface suggests cirrhosis. There is no biliary ductal dilatation status post cholecystectomy. No peripancreatic infiltration is present. There is no pancreatic ductal dilatation. The spleen, adrenal glands and kidneys are unremarkable. There is no hydronephrosis. Interval mesenteric infiltration is unchanged. Chronic diverticulosis is noted without evidence for acute diverticulitis. There is no evidence for a bowel obstruction. The appendix is normal. Bladder wall thickening with adjacent infiltration is noted. This was shown on prior exam. There is extensive vascular calcification. T12 and L2 compr ession fractures are again noted. These were shown on prior exam however vertebral body height loss has increased prior CT. There is a new L4 vertebral body fracture with minimal loss of vertebral body height. This is likely acute. No additional acute fractures are identified. There is no ascites. There is no lymphadenopathy. Subcutaneous calcifications within the anterior abdominal wall are unchanged IMPRESSION: 1. Acute L4 compression fracture with minimal loss of vertebral body height. T12 and L2 fractures shown on CT of August 19, 2020 with interval increase in vertebral body height loss. 2. No bowel obstruction. 3. Bladder wall thickening with adjacent infiltration. This was shown on prior exam. This could be correlated with urinalysis to exclude cystitis. ACT 112: Negative or not required by law. Electronically signed by: Chai Chen M.D. 02/10/2021 8:17 PM Hemodialysis Access Duplex US 02/17/21 11:01 US hemodialysis access CLINICAL HISTORY: infiltration, failed tx COMPARISON STUDY: No previous studies for comparison. TECHNIQUE: Grayscale, color and duplex Doppler sonography of the left upper extremity AV fistula was performed. FINDINGS: Left upper extremity AV fistula is noted. This fistula is likely between the brachial artery and cephalic vein. The AV fistula is patent. There is apparent narrowing adjacent to the arterial anastomosis however velocities are within normal limits, ranging up to 236 cm/s. No adjacent hematoma is noted. No intraluminal thrombus is identified. IMPRESSION: Patent left upper extremity AV fistula. Possible stenosis adjacent to the arterial anastomosis however velocities are within normal limits. ACT 112: Negative or not required by law. Electronically signed by: Chai Chen M.D. 02/17/2021 1:28 PM Hospital Course (1) Infection due to ESBL-producing Escherichia coli: History of recurrent ESBL urinary tract infections. Straight cath urine culture this admission with gram-negative bacill, <10,000 CFU however. Presumed that it was the same ESBL e.coli pathogen as previous. Although colony count was low - given report of doing poorly from physical standpoint prior to admission - decision made to treat. Completed 5-day course of IV ertapenem. Afebrile and without signs/symptoms of infection at discharge. (2) Nontraumatic compression fracture of lumbar vertebra: L4 pain controlled neuro exam of legs - strength 5/5 bl cont TLSO brace w/ ambulation and sitting (3) ESRD (end stage renal disease) on dialysis: Hemodialysis schedule is Monday, , Monday at [facility]. [facility] Nephrology provided HD assistance while here. There were technical difficulties with access of her LUE AV fistula while hospitalized but doppler of her fistual showed normal indices. She will continue her usual schedule after discharge. If fistula issues persist she will need referral back to Dr Zion Westbrook. (4) Paroxysmal atrial fibrillation: Continue metoprolol rates well-controlled while here Anticoagulation - warfarin INR 1.5 at discharge warfarin dose increased to 5mg/day at discharge advise daily INR at SNF until INR is consistently 2-3 (5) Hyperlipidemia: Continue atorvastatin (6) Hypertension: Hemodynamically stable/controlled Continue home antihypertensives (7) Hypothyroidism: Continue levothyroxine TSH 3.4 in 07/2020 (8) Vitamin D deficiency: Continue vitamin D repletion Monday and Saturdays most recent 25-OH vitamin D level wnl (9) Diabetes mellitus with diabetic neuropathy: HbA1C 6.8% She will continue novolog 4 units TID w/ meals upon discharge. Control was satisfactory while hospitalized. (10) DVT prophylaxis: Anticoagulated chronically on Coumadin INR 1.5 - see above Total Time Total Time Spent Total Time Spent (In Minutes): 45 Total Time Includes: Examination of the Patient, Discharge Planning, Medication Reconciliation and Communication With Other Providers Discharge Plan Discharge Items Patient Disposition: [facility] Reason For Visit: CONFUSION,UTI Discharge Diagnosis: 1. confusion - resolved 2. UTI - resolved 3. L4 compression fracture 4. End-stage renal disease on hemodialysis Activity: Resume your previous activity Weightbearing Comment: protect left arm at all times due to presence of AV fistula Non-emergency contact: Primary Care Provider and Lane Attendant Call non-emergency contact if: you have any medication questions, your symptoms worsen and you have a fever Follow-up/Referrals: Mauri Hinojosa MD [Primary Care Provider] - Diet: Carb Consistent or DM2 and Dialysis Renal Fluids: 1500ml (6 cups) Addtl Attending Provider Instructions: 1. use TLSO back brace when sitting upright in chair for lengthy periods of time (if desired by patient) but most importantly with ambulation. 2. fingerstick blood sugars with meals and at bedtime. 3. DAILY INR checks starting 02/18/21 until INR is consistently >2 (INR goal 2- 3). Results to medical cost consultant. INR is 1.5 on 02/17/21. 4. Hemodialysis schedule - Monday, , Monday - at [facility] 5. protect left arm at all times due to AV fistula Pending Studies at Discharge: No Stand-Alone Forms: My [facility] [employer] Skilled Items Patient informed of condition?: Yes DNR: No Discharge Level of Care: Skilled Communicable Disease: No Discharge Prognosis: Stable Lines: None Urinary Catheter: No Medications and DC Order Prescriptions: New warfarin 5 mg Tablet 5 mg PO QPM Qty: 30 RF: 0 oxycodone 5 mg tablet 1.25 mg PO Q4H PRN (Reason: pain) Qty: 10 RF: 0 Continued (DME) pen needle, diabetic [BD Ultra-Fine [place] Pen Needle] 32 gauge x 5/32" needle See Dose Instructions .ROUTE .MEDSUPPLY Qty: 400 RF: 3 (DME) lancets [OneTouch Delica Plus Lancet] 33 gauge misc See Rx Instructions .ROUTE .MEDSUPPLY Qty: 400 RF: 0 (DME) OneTouch Verio test strips Strip See Dose Instructions .ROUTE .MEDSUPPLY Qty: 400 RF: 3 Renal Caps 1 mg capsule 1 cap PO QAM 30 Days Qty: 90 RF: 3 (DME) FreeStyle Frieda 14 Day [place]ledge Misc See Rx Instructions [id number] .MEDSUPPLY Qty: 1 RF: 0 (DME) FreeStyle Frieda 14 Day Sensor Kit See Rx Instructions [id number] .MEDSUPPLY Qty: 1 RF: 11 levothyroxine 112 mcg tablet 112 mcg PO QAM Qty: 30 RF: 5 hydralazine 100 mg tablet 100 mg PO BID Qty: 60 RF: 5 sertraline 25 mg tablet 25 mg PO QAM Qty: 90 RF: 3 gabapentin 100 mg capsule 100 mg PO QAM Qty: 30 RF: 5 metoprolol tartrate 25 mg tablet 25 mg PO BID Qty: 60 RF: 5 furosemide 20 mg tablet 20 mg PO BIDM Qty: 60 RF: 5 gabapentin 400 mg capsule 400 mg PO .COMPLEX Qty: 45 RF: 1 gabapentin 300 mg capsule 300 mg PO .COMPLEX Qty: 12 RF: 3 acetaminophen 325 mg tablet 650 mg PO BID PRN (Reason: fever or pain) RF: 0 atorvastatin 10 mg tablet 10 mg PO HS Qty: 90 RF: 3 GlucaGen Diagnostic Kit 1 mg/mL Recon Soln 1 mg subcut UD PRN (Reason: hypoglycemia) Qty: 1 RF: 0 glucose [Dex4 Glucose] 4 gram Tablet,Chewable 4 g PO UD PRN (Reason: hypoglycemia) Qty: 30 RF: 0 lidocaine 5 % adhesive patch,medicated 2 patch transdermal QAM RF: 0 diclofenac sodium [Voltaren] 1 % gel 4 g EXT QAM RF: 0 PreserVision AREDS [id number] Capsule 1 cap PO BID RF: 0 lidocaine [Aspercreme (lidocaine HCl)] 4 % Adhesive Patch,Medicated 2 patch TOPICAL DAILY PRN (Reason: Pain) RF: 0 cholecalciferol (vitamin D3) 25 mcg (1,000 unit) capsule 1,000 unit PO 3XWK RF: 0 Changed amlodipine 10 mg tablet 5 mg PO QAM Qty: 0 RF: 0 insulin aspart U-100 [Novolog Flexpen U-100 Insulin] 100 unit/mL (3 mL) insulin pen 4 unit subcut AC 90 Days Qty: 15 RF: 1 Discontinued Lantus Solostar U-100 Insulin 100 unit/mL (3 mL) insulin pen See Rx Instructions .ROUTE .COMPLEX Qty: 15 RF: 5 oxycodone 5 mg tablet 1.25 mg PO Q3H PRN (Reason: pain) Qty: 30 RF: 0 warfarin 4 mg tablet 4 mg PO QPM RF: 0 Discharge Orders: Discharge Order (Routine); Ordered 02/17/21 Ordered By: Mike Frye/Other Patient Handouts: Managing Type 2 Diabetes Admission Data Admit Date/Time: 02/12/21 10:05 Attending Provider: Mike Chavira Admit Provider: Brian Naik Primary Care Provider: Mauri Hinojosa V. Other Providers: Brian Naik ; Sabino Palma ; Yesika Vera [facility] Other Interventions: Discharge Summary Assessment (RN) Last Done: 02/17/21 16:11 Coding Level of Care Code D/C Day Management >30 mins Diagnoses Infection due to ESBL-producing Escherichia coli A49.8; Z16.12 Nontraumatic compression fracture of lumbar vertebra M48.56XA ESRD (end stage renal disease) on dialysis N18.6; Z99.2 Paroxysmal atrial fibrillation I48.0 Hyperlipidemia E78.5 Hyperlipidemia type: unspecified Hypertension I10 Hypertension type: essential hypertension Hypothyroidism E03.9 Hypothyroidism type: acquired Vitamin D deficiency E55.9 Diabetes mellitus with diabetic neuropathy E11.40 DVT prophylaxis Z29.9
[2021-02-17] MEDS ORDERED: WARFARIN SOD 5 MG TAB PO SCH (21:00)
== END 2021-02-17 16:55 | DRG 689 ==
LOC: ED 16:06 → 2N 16:06 → SUATTDRO 23:24 → 2N 02-11 01:15 → SUATTDRO 02-12 10:05

== ENCOUNTER 2021-05-03 18:20 | Observation (INO) ==
[2021-05-03] MEDS ORDERED: SODIUM CHLORIDE 0.9% 1000ML 1,000 ML IV SCH (19:15)
[2021-05-03 19:28] LABS: Basophils # (auto) 0.02 K/uL (0-0.2); Basophils % (auto) 0.3 %; Eosinophils # (auto) 0.23 K/uL (0-0.5); Hematocrit (blood only) 34.9 % (37-47); Hemoglobin 11.3 g/dL (12.0-16.0); Immature Granulocytes # (auto) 0.01 K/uL (0.00-0.02); Immature Granulocytes % (auto) 0.1 %; Lymphocytes # (auto) 2.09 K/uL (1.2-3.4); Lymphocytes % (auto) 27.1 %; Mean Corpuscular Hemoglobin 33.4 pg (25-34); Mean Corpuscular Hgb Conc 32.4 g/dL (32-36); Mean Corpuscular Volume 103.3 fL (80-100); Mean Platelet Volume 9.5 fL (7.4-10.4); Monocytes # (auto) 1.03 K/uL (0.11-0.59); Monocytes % (auto) 13.3 %; Neutrophils # (auto) 4.34 K/uL (1.4-6.5); Neutrophils % (auto) 56.2 %; Platelet Count 343 K/uL (130-400); RDW Coefficient of Variation 16.1 % (11.5-14.5); RDW Standard Deviation 60.9 fL (36.4-46.3); Red Blood Count 3.38 M/uL (4.2-5.4); White Blood Count 7.72 K/uL (4.8-10.8)
[2021-05-03 19:57] LABS: Alanine Aminotransferase 16 U/L (12-78); Albumin Globulin Ratio 0.8 (0.9-2); Alkaline Phosphatase 115 U/L (45-117); Aspartate Aminotransferase 17 U/L (15-37); BUN Creatinine Ratio 8.3 (10-20); Bilirubin,Total 0.5 mg/dl (0.2-1); Blood Urea Nitrogen 61 mg/dl (7-18); Calcium 8.7 mg/dl (8.5-10.1); Carbon Dioxide 26 mmol/L (21-32); Chloride 98 mmol/L (98-107); Creatinine Clr Calc Pharmacy 5.7 ml/min; Est GFR (African American) 5.2 ml/min; Est GFR (Non-African American) 4.4 ml/min; Globulin 3.5 gm/dl (2.5-4.0); Glucose 140 mg/dl (70-99); Magnesium 2.4 mg/dl (1.8-2.4); Potassium 4.5 mmol/L (3.5-5.1); Sodium 134 mmol/L (136-145); Total Protein 6.5 gm/dl (6.4-8.2); Troponin I < 0.015 ng/ml (0-0.045)
[2021-05-03 20:07] LABS: INR 1.9 (0.9-1.1); Prothrombin Time 18.4 Seconds (9.0-12.0)
--- NOTE | 2021-05-03 20:11 | XRay Report ---
XR chest 1V portable HISTORY: 89 years-old Female weakness acute weakness COMPARISON: Chest radiograph 08/28/2020 TECHNIQUE: Portable AP view the chest FINDINGS: Cardiac silhouette is moderately enlarged. Calcified plaque of the thoracic aorta. Chronic interstiti al coarsening with chronic left lung base opacity correlating with prominent epicardial fat pad with atelectasis/scarring. There is unchanged mild blunting of the right costophrenic angle. No pneumothor ax or large pleural effusion or overt pulmonary edema. Degenerative changes of the shoulders and spin e. Vascular stent of the left subclavian distribution. IMPRESSION: Chronic findings as above without acute process. ACT 112: Negative or not required by law. The above report was generated using voice recognition software. It may contain grammatical, syntax o r spelling errors. Electronically signed by: Luis Manuel Carr M.D. 05/03/2021 8:10 PM
[2021-05-03 20:13] LABS: T4 Free Thyroxine 0.96 ng/dl (0.8-1.6)
--- NOTE | 2021-05-03 20:32 | CT Scan Report ---
CT head/brain wo con CLINICAL HISTORY: 89 years-old Female with AMS, warfarin. Acutely altered mental status. TECHNIQUE: Multiple axial CT images of the head were obtained without contrast. A dose lowering tech nique was utilized adhering to the principles of ALARA. CT DOSE: 614.27 mGy.cm COMPARISON: Head CT 10/07/2019. FINDINGS: No acute intracranial hemorrhage, midline shift, intracranial mass, hydrocephalus, territorial ischem ia or abnormal extra-axial collection. Age-related involutional changes with ex vacuo ventriculomegal y. White matter hypodensities suggestive of chronic microvascular ischemic disease. The calvarium is intact. Chronic complete opacification of the right sphenoid sinus with partially c alcified debris. The mastoid air cells are clear. Unremarkable soft tissues. Prior bilateral lens rep air. IMPRESSION: No acute intracranial abnormality. ACT 112: Negative or not required by law. The above report was generated using voice recognition software. It may contain grammatical, syntax o r spelling errors. Electronically signed by: Luis Manuel Carr M.D. 05/03/2021 8:30 PM
[2021-05-03 20:57] LABS: Appearance Urine Turbid (Clear); Bacteria Urine Automated 1+ (Negative); Bilirubin Urine Negative (Negative); Blood Urine 2+ (Negative); Color Urine Yellow; Epithelial Cell Urine Auto >30 /lpf (0-5); Glucose Urine UA Negative (Negative); Ketones Urine Negative (Negative); Leukocyte Esterase Urine 3+ (Negative); Nitrite Urine Negative (Negative); Specific Gravity Urine 1.013 (1.000-1.030); Urobilinogen Urine Negative (Negative); WBC Urine Automated >30 /hpf (0-5); pH Urine 7.5 (4.5-7.5)
[2021-05-03 21:01] LABS: Protein Urine 3+ (Negative)
[2021-05-03] MEDS ORDERED: cefTRIAXone SODIUM 2,000 MG/70 ML BAG IV STA (21:04)
[2021-05-03 21:13] LABS: Cast Urine Automated 0 /lpf (0-5)
--- NOTE | 2021-05-03 21:45 | Emergency Department Note ---
History of Present Illness General Chief complaint: Weakness Source: patient, RN notes reviewed and other (caregiver) Mode of arrival: EMS Limitations: altered mental status History of Present Illness Provider complaint: Altered mental status, fatigue, UTI on Cipro This patient is an 89-year-old female who presents to the emergency department with complaints of altered mental status and fatigue per her caregiver. Patient has a history of end-stage renal disease and is on hemodialysis. She had a different caregiver and over the weekend who inadvertently missed the patient's Monday dialysis appointment. The patient is also currently being treated with Cipro for presumed UTI by her PCP because of disc altered urine. Caregiver states that she fell asleep 3 times during breakfast despite serving her favor ite meal. They deny any recent falls, head injuries, chest pain or shortness of breath. Patient has had no vomiting. She is anticoagulated on Coumadin for history of atrial fibrillation. Home Medications Medication Instructions Recorded Confirmed Type acetaminophen 325 mg tablet 650 mg PO BID PRN tab 05/27/20 05/03/21 History BD Ultra-Fine Belgica Pen Needle 32 #400 ea NS 05/29/20 04/12/21 Rx gauge x 5/32" glucose [Dex4 Glucose] 4 g PO UD PRN #30 tab 08/26/20 05/03/21 Rx flash glucose sensor #1 ea 09/30/20 04/12/21 Rx sertraline 25 mg tablet 25 mg PO QAM #90 tab 10/19/20 05/03/21 Rx lidocaine 3 patch TRANSDERMAL QAM 11/09/20 05/03/21 History blood sugar diagnostic ea 03/17/21 04/12/21 History flash glucose sensor #2 ea 03/17/21 04/12/21 Rx lancets 33 gauge ea 03/17/21 04/12/21 History metoprolol tartrate 25 mg tablet 25 mg PO BID #60 tab 03/26/21 05/03/21 Rx atorvastatin 10 mg tablet 10 mg PO HS #90 tab 03/31/21 05/03/21 Rx gabapentin 100 mg capsule 100 mg PO QAM #30 cap 03/31/21 05/03/21 Rx hydralazine 100 mg tablet 100 mg PO BID #60 tab 03/31/21 05/03/21 Rx levothyroxine 112 mcg tablet 112 mcg PO QAM #30 tab 03/31/21 05/03/21 Rx ciprofloxacin HCl 250 mg tablet 250 mg PO BID 5 Days #10 tab 04/23/21 05/03/21 Rx vitamins A,C,G-npiq-gswstr 14,320 1 cap PO BID #60 cap 04/26/21 05/03/21 Rx unit-226 mg-200 unit capsule furosemide 20 mg tablet 20 mg PO BIDM #60 tab 04/27/21 05/03/21 Rx B complex with C 20-folic acid 1 cap PO QAM 05/03/21 05/03/21 History [Virt-Caps] amlodipine 5 mg PO QAM 05/03/21 05/03/21 History calcium carbonate [Tums] 300 mg PO TIDM 05/03/21 05/03/21 History gabapentin 300 mg PO DIRECTED 05/03/21 05/03/21 History gabapentin 400 mg PO DIRECTED 05/03/21 05/03/21 History insulin aspart U-100 [Novolog 0 unit SUBCUT DIRECTED 05/03/21 05/03/21 History Flexpen U-100 Insulin] insulin glargine [Lantus Solostar 2 unit SUBCUT QAM 05/03/21 05/03/21 History U-100 Insulin] oxycodone 2.5 mg PO BID PRN 05/03/21 05/03/21 History warfarin 5 - 7.5 mg PO 6XWK 05/03/21 05/03/21 History Allergies Allergy/AdvReac Type Severity Reaction Status Date / Time No Known Allergies Allergy Verified 05/03/21 21:25 Past Med/Surg History Medical History Acute UTI Anemia Arthritis AV fistula left arm Back pain Chronic lower back pain DDD (degenerative disc disease) Depression Diabetic nephropathy ESRD (end stage renal disease) on dialysis [facility] in [place] Fistula Gout Hyperlipidemia Hypertension Hypothyroidism Macular degeneration Paroxysmal atrial fibrillation No pacer > Warfarin > dx several yrs ago> no cardioversions ; follows with [facility] cardio Type 2 diabetes mellitus Urinary tract infection UTI (urinary tract infection) Surgical History History of cataract surgery bilateral History of cholecystectomy History of colonoscopy S/P dialysis catheter insertion right chest S/P dilation and curettage Family History Mother Diabetes Hypertension Macular degeneration Hypothyroidism Denies family history of Ovarian cancer Myocardial infarction Breast cancer Colorectal cancer Social History Smoking Status: Never smoker Second Hand Exposure: No; Hx Alcohol Use: No Hx Substance Use: No Preferred Language: Malawian Communication Ability: Effective Visual Impairment: No Limitations Hearing Ability: Normal Pediatric Registered Nurse Required: No Beliefs That Will Affect Care: None marital status: Current Living Situation: Spouse Current Living Situation Comment: Jody Napoles current occupational status: retired How many Children do You have: 1 Feels Safe at Home: Yes Childhood Exposure to Second-Hand Smoke: No Physical Activity Frequency: Does not Exercise Seatbelt Use: always Assistive Devices: None Review of Systems See HPI for pertinent positives & negatives. and A total of 10 systems reviewed and were otherwise negative Other (Somewhat limited from the patient's standpoint due to altered mentation, caregiver at the bedside providing supplemental history) Physical Exam Vital Signs Vital Signs - 24 hr 05/03/21 18:33 05/03/21 18:39 Temperature 36.8 C Temperature Source Oral Pulse Rate 60 Pulse Rhythm Regular Pulse Strength Normal Respiratory Rate 16 Respiratory Effort / Characteristics Non-Labored Spontaneous Respiratory Depth Normal Respiratory Pattern Regular Blood Pressure 140/82 Blood Pressure Mean 101 Blood Pressure Position Lying Pulse Oximetry 97 Oxygen Delivery Method Room Air Room Air Sepsis Recent Fever Within 48 Hours No Sepsis New/Unexplained Change in Mental Status No Sepsis Action Taken by Nursing No Action Required Vital signs reviewed. General: Elderly chronically ill 89-year-old female, in no distress. HEENT: No scleral icterus, PERRLA, neck supple. Atraumatic. Cardiovascular: Bradycardic but regular, no extra sounds Pulmonary: Clear to auscultation bilaterally, normal work of breathing. Abdomen: Soft, obese, nontender, nondistended, positive bowel sounds. Musculoskeletal: Atraumatic, no peripheral edema. Neurologic: Patient somnolent but awake, answers simple questions. Cranial nerves appear to be intact. Speech is clear. Skin: Warm, dry, no rash Course Administered Medications Sodium Chloride (Nss 1000ml) 1,000 mls @ 100 mls/hr IV .Q10H REYMUNDO Stop: 05/04/21 05:14 Last Admin: 05/03/21 20:46 Dose: 100 mls/hr Documented by: [id number] Medical Decision Making Differential Diagnosis Infection, dehydration, metabolic abnormality, hypo/hyperglycemia, electrolyte disturbance, anemia, hypoxia, cardiac sources, intracerebral event, toxicologic, neurologic, as well as other pathologies. Medical Records Attestation: I reviewed the patient's medical records. Home Medications Current Medication List: was personally reviewed by me Laboratory Data Attestation: I reviewed the patient's lab results. Result diagrams: 05/03/21 19:14 05/03/21 19:14 Lab Results 05/03/21 05/03/21 05/03/21 Range/Units 19:14 19:14 19:14 WBC 7.72 (4.8-10.8) K/uL RBC 3.38 L (4.2-5.4) M/uL Hgb 11.3 L (12.0-16.0) g/dL Hct 34.9 L (37-47) % MCV 103.3 H (80-100) fL MCH 33.4 (25-34) pg MCHC 32.4 (32-36) g/dL RDW Std Deviation 60.9 H (36.4-46.3) fL RDW Coeff of Jon 16.1 H (11.5-14.5) % Plt Count 343 (130-400) K/uL MPV 9.5 (7.4-10.4) fL Immature Gran % (Auto) 0.1 % Neut % (Auto) 56.2 % Lymph % (Auto) 27.1 % [place] % (Auto) 13.3 % Eos % (Auto) 3.0 % Baso % (Auto) 0.3 % Neut # (Auto) 4.34 (1.4-6.5) K/uL Lymph # (Auto) 2.09 (1.2-3.4) K/uL [place] # (Auto) 1.03 H (0.11-0.59) K/uL Eos # (Auto) 0.23 (0-0.5) K/uL Baso # (Auto) 0.02 (0-0.2) K/uL Immature Gran # (Auto) 0.01 (0.00-0.02) K/uL PT 18.4 H (9.0-12.0) Seconds INR 1.9 H (0.9-1.1) Sodium 134 L (136-145) mmol/L Potassium 4.5 (3.5-5.1) mmol/L Chloride 98 (98-107) mmol/L Carbon Dioxide 26 (21-32) mmol/L Anion Gap 10.0 (3-11) BUN 61 H (7-18) mg/dl Creatinine 7.39 H* (0.6-1.2) mg/dl Est Cr Clr Drug Dosing 5.7 ml/min Est GFR ( Amer) 5.2 ml/min Est GFR (Non-Af Amer) 4.4 ml/min BUN/Creatinine Ratio 8.3 L (10-20) Glucose 140 H (70-99) mg/dl Calcium 8.7 (8.5-10.1) mg/dl Magnesium 2.4 (1.8-2.4) mg/dl Total Bilirubin 0.5 (0.2-1) mg/dl AST 17 (15-37) U/L ALT 16 (12-78) U/L Alkaline Phosphatase 115 (45-117) U/L Troponin I < 0.015 (0-0.045) ng/ml Total Protein 6.5 (6.4-8.2) gm/dl Albumin 3.0 L (3.4-5.0) gm/dl Globulin 3.5 (2.5-4.0) gm/dl Albumin/Globulin Ratio 0.8 L (0.9-2) TSH 7.860 H (0.300-4.500) uIu/ml Free T4 0.96 (0.8-1.6) ng/dl Urine Color Urine Appearance (Clear) Urine pH (4.5-7.5) Ur Specific [place] (1.000-1.030) Urine Protein (Negative) Urine Glucose (UA) (Negative) Urine Ketones (Negative) Urine Blood (Negative) Urine Nitrite (Negative) Urine Bilirubin (Negative) Urine Urobilinogen (Negative) Ur Leukocyte Esterase (Negative) Urine WBC (Auto) (0-5) /hpf Urine RBC (Auto) (0-4) /hpf U Hyaline Cast (Auto) (0-5) /lpf U Epithel Cells (Auto) (0-5) /lpf Urine Bacteria (Auto) (Negative) Urine Yeast COVID-19 Eval Order 07/05/21 07/05/21 Range/Units 20:00 20:54 WBC (4.8-10.8) K/uL RBC (4.2-5.4) M/uL Hgb (12.0-16.0) g/dL Hct (37-47) % MCV (80-100) fL MCH (25-34) pg MCHC (32-36) g/dL RDW Std Deviation (36.4-46.3) fL RDW Coeff of Jon (11.5-14.5) % Plt Count (130-400) K/uL MPV (7.4-10.4) fL Immature Gran % (Auto) % Neut % (Auto) % Lymph % (Auto) % [place] % (Auto) % Eos % (Auto) % Baso % (Auto) % Neut # (Auto) (1.4-6.5) K/uL Lymph # (Auto) (1.2-3.4) K/uL [place] # (Auto) (0.11-0.59) K/uL Eos # (Auto) (0-0.5) K/uL Baso # (Auto) (0-0.2) K/uL Immature Gran # (Auto) (0.00-0.02) K/uL PT (9.0-12.0) Seconds INR (0.9-1.1) Sodium (136-145) mmol/L Potassium (3.5-5.1) mmol/L Chloride (98-107) mmol/L Carbon Dioxide (21-32) mmol/L Anion Gap (3-11) BUN (7-18) mg/dl Creatinine (0.6-1.2) mg/dl Est Cr Clr Drug Dosing ml/min Est GFR ( Amer) ml/min Est GFR (Non-Af Amer) ml/min BUN/Creatinine Ratio (10-20) Glucose (70-99) mg/dl Calcium (8.5-10.1) mg/dl Magnesium (1.8-2.4) mg/dl Total Bilirubin (0.2-1) mg/dl AST (15-37) U/L ALT (12-78) U/L Alkaline Phosphatase (45-117) U/L Troponin I (0-0.045) ng/ml Total Protein (6.4-8.2) gm/dl Albumin (3.4-5.0) gm/dl Globulin (2.5-4.0) gm/dl Albumin/Globulin Ratio (0.9-2) TSH (0.300-4.500) uIu/ml Free T4 (0.8-1.6) ng/dl Urine Color Yellow Urine Appearance Turbid A (Clear) Urine pH 7.5 (4.5-7.5) Ur Specific [place] 1.013 (1.000-1.030) Urine Protein 3+ H (Negative) Urine Glucose (UA) Negative (Negative) Urine Ketones Negative (Negative) Urine Blood 2+ H (Negative) Urine Nitrite Negative (Negative) Urine Bilirubin Negative (Negative) Urine Urobilinogen Negative (Negative) Ur Leukocyte Esterase 3+ H (Negative) Urine WBC (Auto) >30 H (0-5) /hpf Urine RBC (Auto) 10-30 H (0-4) /hpf U Hyaline Cast (Auto) 0 (0-5) /lpf U Epithel Cells (Auto) >30 H (0-5) /lpf Urine Bacteria (Auto) 1+ H (Negative) Urine Yeast Not Reportable COVID-19 Eval Order Covid19 at [facility] Imaging Data Radiologist's Impression: Chest X-Ray 05/03/21 19:12 XR chest 1V portable HISTORY: 89 years-old Female weakness acute weakness COMPARISON: Chest radiograph 08/28/2020 TECHNIQUE: Portable AP view the chest FINDINGS: Cardiac silhouette is moderately enlarged. Calcified plaque of the thoracic aorta. Chronic interstitial coarsening with chronic left lung base opacity correlating with prominent epicardial fat pad with atelectasis/scarring. There is unchanged mild blunting of the right costophrenic angle. No pneumothorax or large pleural effusion or overt pulmonary edema. Degenerative changes of the shoulders and spine. Vascular stent of the left subclavian distribution. IMPRESSION: Chronic findings as above without acute process. ACT 112: Negative or not required by law. The above report was generated using voice recognition software. It may contain grammatical, syntax or spelling errors. Electronically signed by: Luis Manuel Carr M.D. 05/03/2021 8:[address] 05/03/21 19:46 CT head/brain wo con CLINICAL HISTORY: 89 years-old Female with AMS, warfarin. Acutely altered mental status. TECHNIQUE: Multiple axial CT images of the head were obtained without contrast. A dose lowering technique was utilized adhering to the principles of ALARA. CT DOSE: 614.27 mGy.cm COMPARISON: Head CT 10/07/2019. FINDINGS: No acute intracranial hemorrhage, midline shift, intracranial mass, hydro cephalus, territorial ischemia or abnormal extra-axial collection. Age-related involutional changes with ex vacuo ventriculomegaly. White matter hypodensities suggestive of chronic microvascular ischemic disease. The calvarium is intact. Chronic complete opacification of the right sphenoid sinus with partially calcified debris. The mastoid air cells are clear. Unremarkable soft tissues. Prior bilateral lens repair. IMPRESSION: No acute intracranial abnormality. ACT 112: Negative or not required by law. The above report was generated using voice recognition software. It may contain grammatical, syntax or spelling errors. Electronically signed by: Luis Manuel Carr M.D. 05/03/2021 8:30 PM ECG Data Attestation: I personally reviewed and interpreted this ECG as follows: Indication: + weakness Rate (beats per minute): 56 Rhythm: + sinus bradycardia and + sinus with SA ECG Intervals/blocks: + First degree AV block and + Normal QT-c ECG [place]: + Normal ECG Findings: + Q waves (Inferior, anterior) Blood Pressure Blood Pressure Findings: Elevated blood pressure Blood Pressure Disposition: further management by hospitalist YANY Narrative This patient was evaluated and appeared to be in no significant distress. IV access was obtained and laboratory work was drawn. An order for cardiac monitoring was placed and the patient is noted to be in a sinus bradycardia with a first-degree AV block at 62 bpm. Chest x-ray reveals chronic changes without acute process. Head CT reveals no evidence of acute intracranial abnormality. 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 Patient's laboratory work reveals an INR of 1.9 with a po tassium of 4.5. Troponin is normal and UA is contaminated but is concerning for infection despite the patient's recent course of oral Cipro. Patient's altered mentation and somnolence may be related to metabolic encephalopathy from her Cipro or UTI resistant to this medication. It may also be related to a missed dialysis treatment. Patient was discussed with the hospitalist, Dr. Fermin who will evaluate the patient for further management. Patient and caregiver are aware of the plan and agree. Impression & Plan Acute metabolic encephalopathy, Anticoagulated on Coumadin, ESRD (end stage renal disease) on dialysis, Acute UTI, Failure of outpatient treatment Discharge Plan Visit Data Chief Complaint: Weakness ED Provider: Faye Deal Discharge Problem: Acute metabolic encephalopathy, Anticoagulated on Coumadin, ESRD (end stage renal disease) on dialysis, Acute UTI, Failure of outpatient treatment Forms Stand Alone Forms: [facility] [employer] Prescriptions Prescriptions: No Action (DME) pen needle, diabetic [BD Ultra-Fine [place] Pen Needle] 32 gauge x 5/32" needle See Dose Instructions .ROUTE .MEDSUPPLY Qty: 400 RF: 3 (DME) FreeStyle Frieda 14 Day Sensor Kit See Rx Instructions [id number] .MEDSUPPLY Qty: 1 RF: 11 sertraline 25 mg tablet 25 mg PO QAM Qty: 90 RF: 3 metoprolol tartrate 25 mg tablet 25 mg PO BID Qty: 60 RF: 5 atorvastatin 10 mg tablet 10 mg PO HS Qty: 90 RF: 3 gabapentin 100 mg capsule 100 mg PO QAM Qty: 30 RF: 5 hydralazine 100 mg tablet 100 mg PO BID Qty: 60 RF: 5 levothyroxine 112 mcg tablet 112 mcg PO QAM Qty: 30 RF: 5 ciprofloxacin HCl [Cipro] 250 mg tablet 250 mg PO BID 5 Days Qty: 10 RF: 0 PreserVision AREDS [id number] capsule 1 cap PO BID Qty: 60 RF: 5 furosemide 20 mg tablet 20 mg PO BIDM Qty: 60 RF: 5 acetaminophen 325 mg tablet 650 mg PO BID PRN (Reason: fever or pain) RF: 0 (DME) OneTouch Verio test strips Strip See Rx Instructions .ROUTE .MEDSUPPLY RF: 0 (DME) lancets [OneTouch Delica Plus Lancet] 33 gauge misc See Rx Instructions .ROUTE .MEDSUPPLY RF: 0 (DME) FreeStyle Frieda 2 Sensor Kit See Rx Instructions miscellaneous .MEDSUPPLY Qty: 2 RF: 11 glucose [Dex4 Glucose] 4 gram Tablet,Chewable 4 g PO UD PRN (Reason: hypoglycemia) Qty: 30 RF: 0 lidocaine 5 % adhesive patch,medicated 3 patch transdermal QAM RF: 0 gabapentin 400 mg capsule 400 mg PO DIRECTED RF: 0 amlodipine 5 mg tablet 5 mg PO QAM RF: 0 warfarin 5 mg tablet 5 - 7.5 mg PO [id number] RF: 0 gabapentin 300 mg capsule 300 mg PO DIRECTED RF: 0 oxycodone 5 mg tablet 2.5 mg PO BID PRN (Reason: pain) RF: 0 insulin aspart U-100 [Novolog Flexpen U-100 Insulin] 100 unit/mL (3 mL) insulin pen 0 unit subcut DIRECTED RF: 0 Lantus Solostar U-100 Insulin 100 unit/mL (3 mL) insulin pen 2 unit subcut QAM RF: 0 calcium carbonate [Tums] 300 mg (750 mg) Tablet,Chewable 300 mg PO TIDM RF: 0 Virt-Caps 1 mg Capsule 1 cap PO QAM RF: 0
--- NOTE | 2021-05-03 22:33 | History & Physical Report ---
Date of Service May 03, 2021 Assessment & Plan (1) ESRD on dialysis: 89 yo F Hx ESRD on HD TTS, hypothyroidism, AFib on chronic warfarin, DM2 on insulin, anemia of chronic disease, Hx ESBL UTI, HTN, chronic low back pain, recent left knee injury admitted for fatigue following missing dialysis, as well as concern for acute UTI. ESRD on dialysis, fatigue, confusion: - Presents with fatigue, confusion after missing dialysis Monday. - Electrolytes stable, repeat in AM. - Will have dialysis tomorrow on schedule, Nephrology consulted. - Suspect improvement in fatigue and LE swelling with dialysis. ? UTI with Hx ESBL: - History of ESBL UTI in the past sensitive to carbapenems. - Was placed on cipro outpatient for "cloudy urine". Has not experienced urinary symptoms. - While confusion and fatigue likely mostly due to missed dialysis cannot rule out UTI as possible cause, will start ertapenem. Defer to day team regarding Abx for ?UTI. Ambulatory dysfunction, left knee pain, chronic back pain: - Has history of chronic back pain on tylenol, lidocaine patches, prn low dose oxycodone BID. - With recent fall and left knee pain, suspected to be ACL injury; has follow up with Ortho. - Do not suspect surgery will be performed, patient has PT/OT 3 times weekly at home. - Has been unable to engage in PT/OT, somewhat due to pain and (per caregivers) somewhat due to patient's own motivation. - Tylenol 1000mg q8h scheduled, with scheduled lidocaine patches as well. Continue prn oxycodone 2.5mg BID for severe pain and prior to PT/OT. - PT/OT evaluations and Case Management consult placed given patient's significant ambulatory dysfunction. Patient has good support at home both with care and family, however want to make sure that patient is safe for home even with those resources and does not require SNF. Hypothyroidism: - Chronic, on daily levothyroxine 112mcg daily. - TSH elevated to 7 with normal T4. - Suspect patient's fatigue is due to missed dialysis and deconditioning rather than hypothyroidism. - Continue home dose with repeat TSH / FT4 by PCP with change to dose as appropriate. DM2 on insulin: - Continue home Lantus with SSI. - DM2 diet. AFib on warfarin: - History of, on warfarin therapy. - Has been subtherapeutic for several months per EMR. - INR 1.9 in ER. - Will increase patient's warfarin to 7.5mg Mon/Wed, all other days 5mg (increase of 2.5mg weekly). HTN, HLD: - History of. - Continue metoprolol and hydralazine, atorvastatin. Code Status: DNR/DNI; had a long discussion with patient and patient's caregiver in person, and patient's daughter Evelin over the phone regarding code status. Patient decided that given her age and overall health that she would prefer to be "let go" if her heart stops or she needs to be intubated. DNR/DNI discussed with patient and order placed in chart. FEN: Dialysis Renal, DM2 diet DVT ppx: warfarin, adjusted as above Dispo: Med/Surg with Telemetry (2) Diabetes mellitus with diabetic neuropathy: (3) AF (paroxysmal atrial fibrillation): (4) Acute UTI: (5) Ambulatory dysfunction: (6) Fatigue: (7) Hypothyroidism: (8) Left knee pain: History of Present Illness Chief Complaint: fatigue, confusion, ?UTI Primary Care Provider: Mauri Hinojosa MD 89 yo F Hx ESRD on HD TTS, hypothyroidism, AFib on chronic warfarin, DM2 on insulin, anemia of chronic disease, Hx ESBL UTI, HTN, chronic low back pain, left ACL injury presented to the ER for 1 day of overwhelming fatigue and mild confusion. Patient herself is coherent and able to answer to all questions. Patient's caregiver is present to answer questions as well as patient's daughter over the phone. Patient has been on cipro for several days by PCP for suspicion for UTI due to "cloudy urine". Patient herself does not endorse dysuria, hematuria, abdominal pain, nausea or vomiting. On Monday her caregivers were having difficulty with getting her ready for dialysis and she did not make her dialysis appointment. Yesterday she started feeling tired, and herself does not remember yesterday. Today family and caregivers were concerned when she was falling asleep while eating at the table. In the ER patient was found to have creatinine 7 with BUN/Cr ratio of 8, K 4.5, normal vitals, elevated TSH. UA with epithelials, but also notable for bacteria, WBCs, blood. CT Head and CXR without acute pathologies. Allergies Allergy/AdvReac Type Severity Reaction Status Date / Time No Known Allergies Allergy Verified 05/03/21 21:25 Home Medications Medication Instructions Recorded Confirmed Type acetaminophen 325 mg tablet 650 mg PO BID PRN tab 05/27/20 05/03/21 History BD Ultra-Fine [place] Pen Needle 32 #400 ea NS 05/29/20 04/12/21 Rx gauge x 5/32" glucose [Dex4 Glucose] 4 g PO UD PRN #30 tab 08/26/20 05/03/21 Rx flash glucose sensor #1 ea 09/30/20 04/12/21 Rx sertraline 25 mg tablet 25 mg PO QAM #90 tab 10/19/20 05/03/21 Rx lidocaine 3 patch TRANSDERMAL QAM 11/09/20 05/03/21 History blood sugar diagnostic ea 03/17/21 04/12/21 History flash glucose sensor #2 ea 03/17/21 04/12/21 Rx lancets 33 gauge ea 03/17/21 04/12/21 History metoprolol tartrate 25 mg tablet 25 mg PO BID #60 tab 03/26/21 05/03/21 Rx atorvastatin 10 mg tablet 10 mg PO HS #90 tab 03/31/21 05/03/21 Rx gabapentin 100 mg capsule 100 mg PO QAM #30 cap 03/31/21 05/03/21 Rx hydralazine 100 mg tablet 100 mg PO BID #60 tab 03/31/21 05/03/21 Rx levothyroxine 112 mcg tablet 112 mcg PO QAM #30 tab 03/31/21 05/03/21 Rx ciprofloxacin HCl 250 mg tablet 250 mg PO BID 5 Days #10 tab 04/23/21 05/03/21 Rx vitamins A,C,F-xhuz-lcjris 14,320 1 cap PO BID #60 cap 04/26/21 05/03/21 Rx unit-226 mg-200 unit capsule furosemide 20 mg tablet 20 mg PO BIDM #60 tab 04/27/21 05/03/21 Rx B complex with C 20-folic acid 1 cap PO QAM 05/03/21 05/03/21 History [Virt-Caps] amlodipine 5 mg PO QAM 05/03/21 05/03/21 History calcium carbonate [Tums] 300 mg PO TIDM 05/03/21 05/03/21 History gabapentin 300 mg PO DIRECTED 05/03/21 05/03/21 History gabapentin 400 mg PO DIRECTED 05/03/21 05/03/21 History insulin aspart U-100 [Novolog 0 unit SUBCUT DIRECTED 05/03/21 05/03/21 History Flexpen U-100 Insulin] insulin glargine [Lantus Solostar 2 unit SUBCUT QAM 05/03/21 05/03/21 History U-100 Insulin] oxycodone 2.5 mg PO BID PRN 05/03/21 05/03/21 History warfarin 5 - 7.5 mg PO [id number] 05/03/21 05/03/21 History Past Med/Surg History Medical History Acute UTI Anemia Arthritis AV fistula left arm Back pain Chronic lower back pain DDD (degenerative disc disease) Depression Diabetic nephropathy ESRD (end stage renal disease) on dialysis [facility] Tues/Thurs/Sat in [place] Fistula Gout Hyperlipidemia Hypertension Hypothyroidism Macular degeneration Paroxysmal atrial fibrillation No pacer > Warfarin > dx several yrs ago> no cardioversions ; follows with [facility] cardio Type 2 diabetes mellitus Urinary tract infection UTI (urinary tract infection) Surgical History History of cataract surgery bilateral History of cholecystectomy History of colonoscopy S/P dialysis catheter insertion right chest S/P dilation and curettage Family History Mother Diabetes Hypertension Macular degeneration Hypothyroidism Denies family history of Ovarian cancer Myocardial infarction Breast cancer Colorectal cancer Social History Smoking Status: Never smoker Second Hand Exposure: No; Hx Alcohol Use: No Hx Substance Use: No Preferred Language: Iraqi Communication Ability: Effective Visual Impairment: No Limitations Hearing Ability: Normal Chainstitch Binder Required: No Beliefs That Will Affect Care: None marital status: Current Living Situation: Spouse Current Living Situation Comment: [employer] current occupational status: retired How many Children do You have: 1 Feels Safe at Home: Yes Safety Concerns: Feels Safe At This Time Childhood Exposure to Second-Hand Smoke: No Physical Activity Frequency: Does not Exercise Seatbelt Use: always Assistive Devices: None Review of Systems Review of Systems: All systems reviewed & are unremarkable except as noted in HPI & below Constitutional: + fatigue; no fever, no chills and no malaise Respiratory: no cough and no dyspnea Cardiovascular: + edema (increased last two days); no chest pain and no palpitations Gastrointestinal: no abdominal pain, no constipation and no diarrhea/loose s tools Genitourinary: no dysuria and no hematuria Physical Exam Constitutional: WD/WN, vitals as above Eyes: PERRL, conjunctivae normal, anicteric sclerae ENMT: external ear and nose normal, oropharynx normal Neck: normal visual inspection Respiratory: normal respiratory effort, lungs clear to auscultation Cardiovascular: Rate/Rhythm: + irregularly irregular Heart Sounds: no murmur Extremities: + edema (1+ bilateral LE pitting edema) Gastrointestinal (Abdomen): normal bowel sounds, soft, nontender, no hepatosplenomegaly Musculoskeletal: no cyanosis or clubbing, extremities motor strength 5/5 Skin: no rashes, warm and dry Neurologic: AAOx3, normal speech No tremor Psychiatric: A+Ox3, euthymic affect Results & Data Results & Data ([facility]) Vital Signs (Past 12 Hours) Vital Signs Temp Pulse Resp BP Pulse Ox 05/03/21 20:53 62 20 163/80 H 95 05/03/21 18:33 36.8 C 60 16 140/82 97 05/03/21 18:27 61 23 140/82 93 Code Status & VTE Plan VTE Prophylaxis Plan VTE Prophylaxis will be ordered: Yes Supervising Physician Co-Signing Physician Notes Patient seen and examined, chart reviewed, case discussed with Dr. Arce and I agree with her assessment and plan as documented above. Briefly, patient is an 89yo female with history of ESRD on HD presenting with fatigue and confusion after missing HD yesterday. Had been on Cipro outpatient for possible UTI sug gested by cloudy urine. No additional complaints. No SOB. Patient still makes a small amount of urine. On exam she is afebrile, HD stable, NAD Skin - intact, no rash HEENT - NC/AT, PERRL, Neck supple Heart - +S1/S2, regular Lungs - CTA Abd - +BS, soft, NT/ND Ext - +edema of bilateral LE - pitting, 1+, LUE AV fistula in place with palpable thrill Neuro - AA&O Labs and images reviewed. K=4.5, HCO3=26 TSH=7.86, T4=0.96 Assessment/Plan - 89yo C female with ESRD on HD presenting with fatigue and confusion after missing HD yesterday. No respiratory distress. No need for emergent dialysis. Possible UTI as well - patient had been out outpatient Cipro -Nephrology consultation appreciated. Plan for HD tomorrow -Follow urine cultures. 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
[2021-05-03] MEDS: ERTAPENEM SODIUM 500 MG in SODIUM CHLORIDE 0.9% 50 ML IV SCH (22:45)
[2021-05-04] MEDS ORDERED: ZINC OXIDE 16% 45 APPLN, HYDROCORTISONE 1% 45 APPLN, ALUMINUM/MAGNESIUM SUSP 15 ML, BAR... TOP PRN (00:32)
[2021-05-04] MEDS ORDERED: GLUCAGON FOR INJ 1 MG VIAL SQ PRN (00:32)
[2021-05-04] MEDS ORDERED: GLUCOSE 10 TABS/TUBE PO PRN (00:32)
[2021-05-04] MEDS ORDERED: oxyCODONE HCL IR 5 MG TAB (IMMEDIATE RELEASE) PO PRN (00:32)
[2021-05-04] MEDS ORDERED: ONDANSETRON INJ 2 MG/ML 2 ML VIAL IV PRN (00:32)
[2021-05-04] MEDS ORDERED: CARBOHYDRATES FOR HYPOGLYCEMIA PO PRN (00:32)
[2021-05-04] MEDS ORDERED: GLUCOSE 40% GEL 15 GM TUBE PO PRN (00:32)
[2021-05-04] MEDS ORDERED: DEXTROSE 50% 50 ML SYRINGE IV PRN (00:32)
--- NOTE | 2021-05-04 03:31 | Billing Data ---
Date of Service May 03, 2021 Coding Level of Care Code 36424 Initial Inpt Care Lvl 2
[2021-05-04] MEDS: ACETAMINOPHEN 500 MG TAB PO SCH ×3 (04:46→21:08)
[2021-05-04] MEDS: LEVOTHYROXINE SODIUM 112 MCG TABLET PO SCH (04:47)
--- NOTE | 2021-05-04 06:55 | Hospitalist Progress Note ---
Date of Service May 04, 2021 Assessment & Plan (1) ESRD on dialysis: 89 yo F Hx ESRD on HD TTS, hypothyroidism, AFib on chronic warfarin, DM2 on insulin, Hx ESBL UTI, recent left knee injury admitted for fatigue and confusion in context of missing dialysis and acute UTI. metabolic encephalopathy secondary to missed dialysis vs UTI - as per below. missed dialysis session and has acute UTI - head CT reviewed. no acute changes. chronic complete opacification of the right sphenoid sinus - confusion improved/resolved - may also have component of chronic mild cognitive impairment ESRD on dialysis - Missed 7/3 dialysis (Sat) - Electrolytes stable, repeat in AM. - Nephrology consulted. dialysis session today UTI with Hx ESBL: - History of ESBL UTI in the past sensitive to carbapenems. - Was placed on cipro outpatient for "cloudy urine". Per patient, missed 2 doses on weekend. Has not experienced urinary symptoms. + mild LLQ TTP which could be from cystitis. - While confusion and fatigue likely mostly due to missed dialysis cannot rule out UTI as possible cause, will start ertapenem. Continue ertapenem until sensitivities result. prelim BC w/ 100k+CFU gram neg bacilli Ambulatory dysfunction, left knee pain, chronic back pain: - Stable enough for therapy. will benefit from PT/OT eval - Has history of chronic back pain on tylenol, lidocaine patches, prn low dose oxycodone BID. - With recent fall and left knee pain; has follow up with Ortho. - Tylenol 1000mg q8h scheduled, with scheduled lidocaine patches as well. Continue prn oxycodone 2.5mg BID for severe pain and prior to PT/OT. Hypothyroidism: - Chronic, on daily levothyroxine 112mcg daily. - TSH elevated to 7 with normal T4. - Suspect patient's fatigue is due to missed dialysis and deconditioning rather than hypothyroidism. - Continue home dose with repeat TSH / FT4 by PCP with change to dose as appropriate. DM2 on insulin: - Continue home Lantus with SSI. - DM2 diet. AFib on warfarin: - History of, on warfarin therapy. - Has been subtherapeutic for several months per EMR. - INR 1.9 in ER. - At admission, ncreased patient's warfarin to 7.5mg Mon/Wed, all other days 5mg (increase of 2.5mg weekly). HTN, HLD: - Stable. Continue metoprolol and hydralazine, atorvastatin. Code Status: DNR/DNI, confirmed at admission FEN: Dialysis Renal, DM2 diet DVT ppx: warfarin, adjusted as above Dispo: Med/Surg with Telemetry. OT recs HH vs inpt OT. PT recs inpt rehab (2) Diabetes mellitus with diabetic neuropathy: (3) AF (paroxysmal atrial fibrillation): (4) Acute UTI: (5) Ambulatory dysfunction: (6) Fatigue: (7) Hypothyroidism: (8) Left knee pain: Admission and Anticipated Discharge Date Admission Date: May 03, 2021 Supervising Physician Co-Signing Physician Notes I personally examined the patient and verified all barton points of history and exam, discussed case, and agree with decision making with Dr Sherwood. Seems to be feeling better, although seems still to be a little bit confused. No acute complaints. Vitals noted, in general she is pleasant no distress, loosely oriented to situation but seems to be off on time and the depth of the situation. HEENT normocephalic atraumatic mucous membranes moist. Breathing unlabored no accessory muscle use good effort. Skin shows no rashes no pallor or icterus. Neuro without focal deficits. Metabolic encephalopathy in the setting of UTI and ESRDdifficult to rule in or out contribution from UTI given her general difficulty taking a good historyit seems that at least her urine had changed in quality some, and seems reasonable to treat as though UTI as part of our encephalopathy picture. That said it seems much more likely that missing dialysis, particularly combined with some of her chronic medicines such as gabapentin, are bigger contributors to her encephalopathy. That said she seems to be improving, not quite sure of her baseline mentation. PT/OT eval and treat, work [facility] family on safe dispo. Subjective Patient feels less confused than yesterday. Only complaint is low back pain 5/10 and L knee pain (mild, worsened w/ movement). She has had these pains since she fell on 1 month ago. She was started on course of PO cipro last week for presumed UTI, but states she had missed 2 doses over the weekend. No dysuria. ESRD on dialysis, but produced small amount of urine. Occasional numbness at L knee Review of Systems Review of Systems: Constitutional: Denies fever, chills, weight change Eyes: Denies blurry vision, vision changes ENT: Denies sore throat, sinus pain Cardiovascular: Denies chest pain, palpitations Respiratory: Denies shortness of breath Gastrointestinal: Denies abdominal pain, nausea, vomiting, constipation, diarrhea Genitourinary: Denies urinary symptoms including dysuria Musculoskeletal: See HPI Neurological: Denies headache Physical Exam Physical Exam: General: A&Ox3 (initially did not know why she was in hospital). NAD. Cooperative. HEENT: Atraumatic, normocephalic. Pulm: Inspiratory crackles at bases. No respiratory distress. Cardiac: RRR, -rg. 2/6 faint systolic murmur loudest at pulmonic area. No LE edema Abdominal: Mild TTP at LLQ. nondistended, soft. Msk: Mild-mod edema at left knee. Lidocaine patch applied Results & Data Results & Data ([facility]) Vital Signs (Past 12 Hours) Vital Signs Temp Pulse Pulse Resp BP BP Pulse Ox 05/04/21 03:18 36.8 C 77 17 129/69 94 05/04/21 03:02 72 05/04/21 00:53 36.6 C 68 16 152/66 H 97 05/04/21 00:10 157/60 H 95 05/04/21 00:00 157/60 H 05/03/21 22:30 60 14 157/60 H 93 05/03/21 22:00 60 15 96 05/03/21 20:53 62 20 163/80 H 95 Resident Activity Tracking Resident Involvement: Resident Care Provided Care Provided: Adult Hospital Medicine (1) Fatigue Fatigue type: other Qualified Code(s): R53.83 - Other fatigue (2) Hypothyroidism Hypothyroidism type: acquired Qualified Code(s): E03.9 - Hypothyroidism, unspecified (3) Diabetes mellitus with diabetic neuropathy Diabetes mellitus technician terminal and repeater insulin use: with technician terminal and repeater use Diabetes mellitus type: type 2 Qualified Code(s): E11.40 - Type 2 diabetes mellitus with diabetic neuropathy, unspecified; Z79.4 - keno terminal operator (current) use of insulin (4) Left knee pain Chronicity: unspecified Qualified Code(s): M25.562 - Pain in left knee
[2021-05-04 07:30] LABS: Hematocrit (blood only) 34.5 % (37-47); Hemoglobin 11.1 g/dL (12.0-16.0); Mean Corpuscular Hemoglobin 33.2 pg (25-34); Mean Corpuscular Hgb Conc 32.2 g/dL (32-36); Mean Corpuscular Volume 103.3 fL (80-100); Mean Platelet Volume 9.4 fL (7.4-10.4); Platelet Count 360 K/uL (130-400); RDW Standard Deviation 60.4 fL (36.4-46.3); Red Blood Count 3.34 M/uL (4.2-5.4); White Blood Count 6.78 K/uL (4.8-10.8)
[2021-05-04] MEDS: CALCIUM CARBONATE 500 MG CHEWABLE TAB PO SCH ×3 (08:01→21:10)
[2021-05-04] MEDS: SERTRALINE HCL 50 MG TABLET PO SCH (08:01)
[2021-05-04] MEDS: GABAPENTIN 100 MG CAP PO SCH (08:01)
[2021-05-04] MEDS: LIDOCAINE 5% 1 PATCH TD SCH (08:03)
[2021-05-04] MEDS: INSULIN GLARGINE SOLOSTAR 100 UNITS/ML 3 ML PEN SQ SCH (08:05)
[2021-05-04] MEDS: INSULIN ASPART 100 UNITS/ML 3 ML PEN SQ SCH ×4 (08:08→21:11)
[2021-05-04 08:23] LABS: BUN Creatinine Ratio 8.5 (10-20); Calcium 8.5 mg/dl (8.5-10.1); Creatinine Clr Calc Pharmacy 5.4 ml/min; Est GFR (African American) 4.9 ml/min; Est GFR (Non-African American) 4.3 ml/min; Potassium 4.1 mmol/L (3.5-5.1)
[2021-05-04] MEDS: METOPROLOL TARTRATE 25 MG TAB PO SCH ×2 (10:09→21:09)
[2021-05-04] MEDS: hydrALAZINE TAB 50 MG TAB PO SCH ×2 (10:09→21:09)
--- NOTE | 2021-05-04 10:39 | Nephrology Consultation ---
Date of Consultation May 04, 2021 Assessment & Plan (1) ESRD (end stage renal disease) on dialysis: Mrs Pearce has ESRD secondary to diabetic nephropathy, on hemodialysis TTS at [facility] via left brachiocephalic AV fistula. Admitted to the hospital with confusion, altered mental status after missed dialysis over the weekend. Workup was unremarkable, blood pressure slightly elevated but volume status, electrolyte acceptable. Overall she is feeling much better and seems to be at her baseline. Blood pressure, volume status and electrolyte acceptable. --plan for dialysis today as her regular schedule, UF goal to EDW --dose medications for GFR less than 10, left arm nephrology precaution. --continue Nephrocaps daily, DANNA for hemoglobin less than 10.5 --encourage increased protein intake -- If she is otherwise feeling well, may be discharged later today it tomorrow Will follow Thank you for allowing me to participate in your patient's care. It was a pleasure to see Shauna (2) Hypertension: (3) Hyperlipidemia: (4) Anemia: History of Present Illness Attending Physician: Gino Solano DO History of Present Illness Mrs. Pearce is a 89 y o F with PMH of ESRD, HTN, T2DM, h/o due to recurrent ESBL E. Coli UTI admitted with AMS, confusion and missed HD on Monday. Nephrology consult was requested to manage hemodialysis while in hospital. EMR records are reviewed in detail during patient's visit. Shauna presented to the hospital with AMS, confusion after she missed HD on Monday by mistake as she had a new caregiver. on admission workup was otherwise unremarkable including CT head, chest x-ray, all of those were unremarkable. Electrolytes are acceptable. Blood pressure slightly elevated however volume status acceptable. She continues to void several times a day. Has ESRD secondary to diabetic nephropathy, dialyzes TTS at [facility] has left BC AVF created 05/[address] Westbrook. PMH also significant for recurrent ESBL E. Coli UTI, atrial fibrillation (warfarin), hypothyroidism, AODM and iron deficiency anemia. She denies any shortness of breath, chest pain. Denies dysuria. No fever or chills. Overall she is feeling much better. Allergies Allergy/AdvReac Type Severity Reaction Status Date / Time No Known Allergies Allergy Verified 05/03/21 21:25 Home Medications Medication Instructions Recorded Confirmed Type acetaminophen 325 mg tablet 650 mg PO BID PRN tab 05/27/20 05/03/21 History BD Ultra-Fine [place] Pen Needle 32 #400 ea NS 05/29/20 04/12/21 Rx gauge x 5/32" glucose [Dex4 Glucose] 4 g PO UD PRN #30 tab 08/26/20 05/03/21 Rx flash glucose sensor #1 ea 09/30/20 04/12/21 Rx sertraline 25 mg tablet 25 mg PO QAM #90 tab 10/19/20 05/03/21 Rx lidocaine 3 patch TRANSDERMAL QAM 11/09/20 05/03/21 History blood sugar diagnostic ea 03/17/21 04/12/21 History flash glucose sensor #2 ea 03/17/21 04/12/21 Rx lancets 33 gauge ea 03/17/21 04/12/21 History metoprolol tartrate 25 mg tablet 25 mg PO BID #60 tab 03/26/21 05/03/21 Rx atorvastatin 10 mg tablet 10 mg PO HS #90 tab 03/31/21 05/03/21 Rx gabapentin 100 mg capsule 100 mg PO QAM #30 cap 03/31/21 05/03/21 Rx hydralazine 100 mg tablet 100 mg PO BID #60 tab 03/31/21 05/03/21 Rx levothyroxine 112 mcg tablet 112 mcg PO QAM #30 tab 03/31/21 05/03/21 Rx ciprofloxacin HCl 250 mg tablet 250 mg PO BID 5 Days #10 tab 04/23/21 05/03/21 Rx vitamins A,C,V-ibni-bjuzki 14,320 1 cap PO BID #60 cap 04/26/21 05/03/21 Rx unit-226 mg-200 unit capsule furosemide 20 mg tablet 20 mg PO BIDM #60 tab 04/27/21 05/03/21 Rx B complex with C 20-folic acid 1 cap PO QAM 05/03/21 05/03/21 History [Virt-Caps] amlodipine 5 mg PO QAM 05/03/21 05/03/21 History calcium carbonate [Tums] 300 mg PO TIDM 05/03/21 05/03/21 History gabapentin 300 mg PO DIRECTED 05/03/21 05/03/21 History gabapentin 400 mg PO DIRECTED 05/03/21 05/03/21 History insulin aspart U-100 [Novolog 0 unit SUBCUT DIRECTED 05/03/21 05/03/21 History Flexpen U-100 Insulin] insulin glargine [Lantus Solostar 2 unit SUBCUT QAM 05/03/21 05/03/21 History U-100 Insulin] oxycodone 2.5 mg PO BID PRN 05/03/21 05/03/21 History warfarin 5 - 7.5 mg PO 6XWK 05/03/21 05/03/21 History Patient History Medical History Acute UTI Anemia Arthritis AV fistula left arm Back pain Chronic lower back pain DDD (degenerative disc disease) Depression Diabetic nephropathy ESRD (end stage renal disease) on dialysis [facility] Tues/Thurs/Sat in [place] Fistula Gout Hyperlipidemia Hypertension Hypothyroidism Macular degeneration Paroxysmal atrial fibrillation No pacer > Warfarin > dx several yrs ago> no cardioversions ; follows with [facility] cardio Type 2 diabetes mellitus Urinary tract infection UTI (urinary tract infection) Surgical History History of cataract surgery bilateral History of cholecystectomy History of colonoscopy S/P dialysis catheter insertion right chest S/P dilation and curettage Family History Mother Diabetes Hypertension Macular degeneration Hypothyroidism Denies family history of Ovarian cancer Myocardial infarction Breast cancer Colorectal cancer Social History Smoking Status: Never smoker Second Hand Exposure: No; Hx Alcohol Use: No Hx Substance Use: No Preferred Language: [place] Communication Ability: Effective Visual Impairment: No Limitations Hearing Ability: Normal Telecommunications Analyst Required: No Beliefs That Will Affect Care: None marital status: Current Living Situation: Spouse Current Living Situation Comment: [facility] current occupational status: retired How many Children do You have: 1 Feels Safe at Home: Yes Safety Concerns: Feels Safe At This Time Childhood Exposure to Second-Hand Smoke: No Physical Activity Frequency: Does not Exercise Seatbelt Use: always Assistive Devices: Walker Physical Exam Constitutional: WD/WN, vitals as above well developed and well nourished; no acute distress Eyes: PERRL, conjunctivae normal, anicteric sclerae ENMT: external ear and nose normal, oropharynx normal Ears: no hearing impairment Neck: trachea midline Respiratory: normal respiratory effort, lungs clear to auscultation no cough Auscultation: no crackles, no rales and no wheezes Cardiovascular: RRR, no murmur, no edema Gastrointestinal (Abdomen): Inspection/Auscultation: normal bowel sounds Percussion/Palpation: abdomen nontender, no guarding and abdomen not rigid Musculoskeletal: Extremities: extremities normal to inspection Gait: normal gait Skin: no rashes, warm and dry Neurologic: moves all extremities and awake Psychiatric: A+Ox3, euthymic affect Results & Data ([facility]) Vital Signs (Past 12 Hours) Vital Signs Temp Pulse Pulse Resp BP BP BP 05/04/21 07:37 36.5 C 61 18 170/65 H 05/04/21 07:29 62 05/04/21 03:18 36.8 C 77 17 129/69 05/04/21 03:02 72 05/04/21 00:53 36.6 C 68 16 152/66 H 05/04/21 00:10 157/60 H 05/04/21 00:00 157/60 H Pulse Ox 05/04/21 07:37 94 05/04/21 07:29 05/04/21 03:18 94 05/04/21 03:02 05/04/21 00:53 97 05/04/21 00:10 95 05/04/21 00:00 PG Care Time/CCT Total # of Minutes Spent Total Time Spent with Patient: Total time spent is greater than 50% in coordination of care (as documented) at patient's floor/unit and/or counseling patient: Coding Level of Care Code 45251 Inpt Consult Level 4 Diagnoses ESRD (end stage renal disease) on dialysis N18.6; Z99.2 Hypertension I10 Hypertension type: essential hypertension Hyperlipidemia E78.5 Hyperlipidemia type: unspecified Anemia D64.9 Anemia type: unspecified type (1) Anemia Anemia type: unspecified type Qualified Code(s): D64.9 - Anemia, unspecified (2) Hyperlipidemia Hyperlipidemia type: unspecified Qualified Code(s): E78.5 - Hyperlipidemia, unspecified (3) Hypertension Hypertension type: essential hypertension Qualified Code(s): I10 - Essential (primary) hypertension
[2021-05-04] MEDS: amLODIPine BESYLATE 5 MG TAB PO SCH (12:37)
--- NOTE | 2021-05-04 18:54 | Billing Data ---
Date of Service May 04, 2021 Coding Level of Care Code 51669 Subseq Hosp Care Lvl 3
[2021-05-04] MEDS ORDERED: GABAPENTIN 400 MG CAP PO SCH (21:00)
[2021-05-04] MEDS: WARFARIN SOD 5 MG TAB PO SCH (21:09)
[2021-05-04] MEDS: ATORVASTATIN 10 MG TAB PO SCH (21:10)
[2021-05-04] MEDS: ERTAPENEM SODIUM 500 MG in SODIUM CHLORIDE 0.9% 50 ML IV SCH (23:52)
[2021-05-05] MEDS: ACETAMINOPHEN 500 MG TAB PO SCH ×3 (05:29→20:43)
[2021-05-05] MEDS: LEVOTHYROXINE SODIUM 112 MCG TABLET PO SCH (05:29)
--- NOTE | 2021-05-05 05:49 | Electrocardiogram Report ---
Test Reason : Blood Pressure : / mmHG Vent. Rate : 056 BPM Atrial Rate : 056 BPM P-R Int : 214 ms QRS Dur : 100 ms QT Int : 460 ms P-R-T Axes : 000 018 058 degrees QTc Int : 443 ms Sinus bradycardia with sinus arrhythmia with 1st degree A-V block Inferior infarct (cited on or before 22-JUL-2016) Possible Anterior infarct , age undetermined Abnormal ECG When compared with ECG of 10-FEB-2021 18:57, No significant change was found Confirmed by Gustavo Rios ([id number]) on 05/05/2021 5:48:57 AM Referred By: Mauri Banda Confirmed By:Gustavo Rios
--- NOTE | 2021-05-05 06:01 | Electrocardiogram Report ---
Test Reason : Blood Pressure : / mmHG Vent. Rate : 065 BPM Atrial Rate : 065 BPM P-R Int : 230 ms QRS Dur : 106 ms QT Int : 460 ms P-R-T Axes : 086 119 059 degrees QTc Int : 478 ms Sinus rhythm with 1st degree A-V block Left posterior fascicular block Abnormal ECG When compared with ECG of 03-MAY-2021 19:36, Left posterior fascicular block is now Present Borderline criteria for Anterior infarct are no longer Present Criteria for Inferior infarct are no longer Present Confirmed by Gustavo Rios ([id number]) on 05/05/2021 6:01:00 AM Referred By: Mauri Banda Confirmed By:Gustavo Rios
--- NOTE | 2021-05-05 07:06 | Hospitalist Progress Note ---
Date of Service May 05, 2021 Assessment & Plan (1) ESRD on dialysis: 89 yo F Hx ESRD on HD TTS, hypothyroidism, AFib on chronic warfarin, DM2 on insulin, Hx ESBL UTI, recent left knee injury admitted for fatigue and confusion in context of missing dialysis and acute UTI. Mild confusion. metabolic encephalopathy secondary to missed dialysis vs UTI - as per below. missed dialysis session and has acute UTI - head CT reviewed. no acute changes. chronic complete opacification of the right sphenoid sinus - confusion improved compared to at admission. still noticeably confused on 05/05 AM (forgot she had dialysis yesterday); pattern more consistent w/ mild cognitive impairment - added fall precautions ESRD on dialysis - Missed 05/01 dialysis (Sat) - Electrolytes stable, repeat in AM. - Nephrology consulted. dialysis session 05/04 evening. next session on 05/06 UTI with Hx ESBL: - History of ESBL UTI in the past sensitive to carbapenems. - Was placed on cipro outpatient for "cloudy urine". Per patient, missed 2 doses on weekend. Has not experienced urinary symptoms. + mild LLQ TTP which could be from cystitis. - While confusion and fatigue likely mostly due to missed dialysis cannot rule out UTI as possible cause, will start ertapenem. Continue ertapenem until sensitivities result. prelim BC w/ 100k+CFU gram neg bacilli Hypotension - soft BPs on 05/05 w/ low of 88/46 - holding home hydralazine 100 mg PO BID. BPs normotensive rest of the day. Ambulatory dysfunction, left knee pain, chronic back pain: - Stable enough for therapy. will benefit from PT/OT eval - Has history of chronic back pain on tylenol, lidocaine patches, prn low dose oxycodone BID. - With recent fall and left knee pain; has follow up with Ortho. - Tylenol 1000mg q8h scheduled, with scheduled lidocaine patches as well. prn oxycodone 2.5mg BID for severe pain and prior to PT/OT. - 05/05 holding oxycodone PRN order d/t risk of delirium. patient has not needed any oxycodone - 05/05 PM: held home gabapentin 300-400mg qhs because may contribution to sedation/confusion. continued gabapentin 100 mg qam Hypothyroidism: - Chronic, on daily levothyroxine 112mcg daily. - TSH elevated to 7 with normal T4. - Suspect patient's fatigue is due to missed dialysis and deconditioning rather than hypothyroidism. - Continue home dose with repeat TSH / FT4 by PCP with change to dose as appropriate. DM2 on insulin: - Continue home Lantus with SSI. - DM2 diet. AFib on warfarin: - History of, on warfarin therapy. - Has been subtherapeutic for several months per EMR. - INR 1.9 in ER. - At admission, ncreased patient's warfarin to 7.5mg Mon/Mon, all other days 5mg (increase of 2.5mg weekly). HTN, HLD: - Stable. Continue metoprolol and hydralazine, atorvastatin. Code Status: DNR/DNI, confirmed at admission FEN: Dialysis Renal, DM2 diet DVT ppx: warfarin, adjusted as above Dispo: Med/Surg with Telemetry. OT recs HH vs inpt OT. PT recs inpt rehab. [facility] application started (2) Diabetes mellitus with diabetic neuropathy: (3) AF (paroxysmal atrial fibrillation): (4) Acute UTI: (5) Ambulatory dysfunction: (6) Fatigue: (7) Hypothyroidism: (8) Left knee pain: Admission and Anticipated Discharge Date Admission Date: May 03, 2021 Supervising Physician Co-Signing Physician Notes I personally examined the patient and verified all barton points of history and exam, discussed case, and agree with decision making with Dr Sherwood. resting comfortably. no new problems. for SNF/rehab emphasis Vitals noted, no distress. HEENT normocephalic atraumatic mucous membranes are moist. Breathing unlabored no accessory muscle use good effort. Skin shows no rashes no pallor or icterus. No focal neuro deficits at rest. Metabolic encephalopathy in the setting of UTI and ESRDdifficult to rule in or out contribution from UTI given her general difficulty taking a good historyit seems that at least her urine had changed in quality some, and seems reasonable to treat as though UTI as part of our encephalopathy picture. That said it seems much more likely that missing dialysis, particularly combined with some of her chronic medicines such as gabapentin, are bigger contributors to her encephalopathy. Has improved. for SNF / rehab emphasis Subjective Patient states she feels well. Denies confusion. She has some pain at her left knee. No dysuria. Patient states she did not receive dialysis last night. Records show she did receive it and 3.2L was removed. Review of Systems Review of Systems: All systems reviewed & are unremarkable except as noted in HPI & below Physical Exam Physical Exam: General: A&Ox4. NAD. Cooperative. HEENT: Atraumatic, normocephalic. Pulm: CTAB. -wheezes, -rales, -rhonchi. No respiratory distress. Cardiac: RRR, -mrg. Radial pulses intact and symmetrical. Abdominal: Nontender, nondistended, soft. Msk: Some ttp below patella Results & Data Results & Data ([facility]) Vital Signs (Past 12 Hours) Vital Signs Temp Pulse Pulse Resp BP BP Pulse Ox 05/05/21 03:00 36.8 C 58 L 17 90/48 L 90 05/04/21 23:22 36.7 C 60 17 88/46 L 96 05/04/21 22:20 62 05/04/21 20:29 36.5 C 68 144/64 H 97 05/04/21 19:45 36.7 C 68 124/56 L 05/04/21 19:20 70 97/57 L Resident Activity Tracking Resident Involvement: Resident Care Provided Care Provided: Adult Hospital Medicine (1) Fatigue Fatigue type: other Qualified Code(s): R53.83 - Other fatigue (2) Hypothyroidism Hypothyroidism type: acquired Qualified Code(s): E03.9 - Hypothyroidism, unspecified (3) Diabetes mellitus with diabetic neuropathy Diabetes mellitus senior care insulin use: with intermediate manager use Diabetes mellitus type: type 2 Qualified Code(s): E11.40 - Type 2 diabetes mellitus with diabetic neuropathy, unspecified; Z79.4 - meterman (current) use of insulin (4) Left knee pain Chronicity: unspecified Qualified Code(s): M25.562 - Pain in left knee
[2021-05-05 07:23] LABS: Basophils # (auto) 0.05 K/uL (0-0.2); Basophils % (auto) 0.9 %; Eosinophils # (auto) 0.22 K/uL (0-0.5); Eosinophils % (auto) 3.7 %; Hematocrit (blood only) 33.2 % (37-47); Hemoglobin 10.7 g/dL (12.0-16.0); Immature Granulocytes # (auto) 0.03 K/uL (0.00-0.02); Immature Granulocytes % (auto) 0.5 %; Lymphocytes # (auto) 1.66 K/uL (1.2-3.4); Lymphocytes % (auto) 28.3 %; Mean Corpuscular Hemoglobin 32.8 pg (25-34); Mean Corpuscular Hgb Conc 32.2 g/dL (32-36); Mean Corpuscular Volume 101.8 fL (80-100); Mean Platelet Volume 9.4 fL (7.4-10.4); Monocytes # (auto) 0.77 K/uL (0.11-0.59); Monocytes % (auto) 13.1 %; Neutrophils # (auto) 3.14 K/uL (1.4-6.5); Neutrophils % (auto) 53.5 %; Platelet Count 281 K/uL (130-400); RDW Coefficient of Variation 16.2 % (11.5-14.5); RDW Standard Deviation 59.3 fL (36.4-46.3); Red Blood Count 3.26 M/uL (4.2-5.4); White Blood Count 5.87 K/uL (4.8-10.8)
[2021-05-05 08:09] LABS: BUN Creatinine Ratio 6.4 (10-20); Calcium 8.1 mg/dl (8.5-10.1); Est GFR (African American) 9.2 ml/min; Est GFR (Non-African American) 7.9 ml/min; Potassium 3.9 mmol/L (3.5-5.1)
[2021-05-05] MEDS: CALCIUM CARBONATE 500 MG CHEWABLE TAB PO SCH ×3 (08:31→17:41)
[2021-05-05] MEDS: SERTRALINE HCL 50 MG TABLET PO SCH (08:32)
[2021-05-05] MEDS: GABAPENTIN 100 MG CAP PO SCH (08:32)
[2021-05-05] MEDS: amLODIPine BESYLATE 5 MG TAB PO SCH (08:32)
[2021-05-05] MEDS: METOPROLOL TARTRATE 25 MG TAB PO SCH ×2 (08:33→20:43)
[2021-05-05] MEDS: LIDOCAINE 5% 1 PATCH TD SCH (08:34)
[2021-05-05] MEDS: INSULIN GLARGINE SOLOSTAR 100 UNITS/ML 3 ML PEN SQ SCH (08:34)
[2021-05-05] MEDS: INSULIN ASPART 100 UNITS/ML 3 ML PEN SQ SCH ×4 (08:35→20:43)
--- NOTE | 2021-05-05 10:29 | Nephrology Progress Note ---
Date of Service May 05, 2021 Assessment & Plan (1) ESRD (end stage renal disease) on dialysis: Mrs Pearce has ESRD secondary to diabetic nephropathy, on hemodialysis TTS at [facility] via left brachiocephalic AV fistula. Admitted to the hospital with confusion, altered mental status after missed dialysis over the weekend. she was also found to have UTI with ESBL, currently on ertapenem. Other w/u was unremarkable, blood pressure, volume status, electrolyte acceptable. Overall she is feeling much better and seems to be at her baseline. Blood pressure, volume status and electrolyte acceptable. Clinically she seems to have improved and at her baseline, no confusion noted. --had dialysis yesterday as her regular schedule with 2 L UF. --dose medications for GFR less than 10, left arm nephrology precaution. --continue Nephrocaps daily, DANNA for hemoglobin less than 10.5 --encourage increased protein intake Will follow (2) Hypertension: (3) Hyperlipidemia: (4) Anemia: Admission and Anticipated Discharge Date Admission Date: May 03, 2021 Miladys Villatoro was seen this morning, overall she is feeling well and seems to be close to her baseline. She remembers getting dialysis last night and had difficulty with cannulation although she said earlier she told another physician that she did not have dialysis and she feels that was a mistake on her part. Review of Systems Review of Systems: All systems reviewed & are unremarkable except as noted in Subjective Physical Exam Constitutional: well developed and well nourished; no acute distress Respiratory: normal respiratory effort, lungs clear to auscultation Cardiovascular: RRR, no murmur, no edema Neurologic: awake; no focal motor deficits and not confused Psychiatric: A+Ox3, euthymic affect Results & Data ([facility]) Vital Signs (Past 12 Hours) Vital Signs Temp Pulse Pulse Resp BP Pulse Ox 05/05/21 08:00 36.9 C 60 18 106/58 L 95 05/05/21 03:00 36.8 C 58 L 17 90/48 L 90 05/04/21 23:22 36.7 C 60 17 88/46 L 96 PG Care Time/CCT Total # of Minutes Spent Total Time Spent with Patient: Total time spent is greater than 50% in coordination of care (as documented) at patient's floor/unit and/or counseling patient: Coding Level of Care Code 82438 Subseq Hosp Care Lvl 2 Diagnoses ESRD (end stage renal disease) on dialysis N18.6; Z99.2 Hypertension I10 Hypertension type: essential hypertension Hyperlipidemia E78.5 Hyperlipidemia type: unspecified Anemia D64.9 Anemia type: unspecified type (1) Hypertension Hypertension type: essential hypertension Qualified Code(s): I10 - Essential (primary) hypertension (2) Hyperlipidemia Hyperlipidemia type: unspecified Qualified Code(s): E78.5 - Hyperlipidemia, unspecified (3) Anemia Anemia type: unspecified type Qualified Code(s): D64.9 - Anemia, unspecified
[2021-05-05] MEDS ORDERED: WARFARIN SOD 7.5 MG TAB PO SCH (16:00)
--- NOTE | 2021-05-05 16:58 | Billing Data ---
Date of Service May 05, 2021 Coding Level of Care Code 91311 Subseq Hosp Care Lvl 1
[2021-05-05] MEDS: ATORVASTATIN 10 MG TAB PO SCH (20:42)
[2021-05-05] MEDS ORDERED: GABAPENTIN 300 MG CAP PO SCH (21:00)
[2021-05-05] MEDS: ERTAPENEM SODIUM 500 MG in SODIUM CHLORIDE 0.9% 50 ML IV SCH (23:43)
[2021-05-06] MEDS: LEVOTHYROXINE SODIUM 112 MCG TABLET PO SCH (06:20)
[2021-05-06] MEDS: ACETAMINOPHEN 500 MG TAB PO SCH ×3 (06:20→22:20)
--- NOTE | 2021-05-06 06:25 | Electrocardiogram Report ---
Test Reason : Blood Pressure : / mmHG Vent. Rate : 060 BPM Atrial Rate : 060 BPM P-R Int : 230 ms QRS Dur : 100 ms QT Int : 500 ms P-R-T Axes : -21 035 082 degrees QTc Int : 500 ms Sinus rhythm with 1st degree A-V block Possible Inferior infarct , age undetermined Nonspecific T wave abnormality Abnormal ECG When compared with ECG of 04-MAY-2021 05:08, Left posterior fascicular block is no longer Present Borderline criteria for Inferior infarct are now Present Confirmed by Gustavo Rios ([id number]) on 05/06/2021 6:25:13 AM Referred By: Mauri Banda Confirmed By:Gustavo Rios
[2021-05-06 07:48] LABS: Basophils # (auto) 0.04 K/uL (0-0.2); Basophils % (auto) 0.6 %; Eosinophils # (auto) 0.24 K/uL (0-0.5); Eosinophils % (auto) 3.5 %; Hematocrit (blood only) 32.8 % (37-47); Hemoglobin 10.7 g/dL (12.0-16.0); Immature Granulocytes # (auto) 0.02 K/uL (0.00-0.02); Immature Granulocytes % (auto) 0.3 %; Lymphocytes # (auto) 2.32 K/uL (1.2-3.4); Mean Corpuscular Hgb Conc 32.6 g/dL (32-36); Mean Corpuscular Volume 101.2 fL (80-100); Mean Platelet Volume 9.6 fL (7.4-10.4); Monocytes # (auto) 0.99 K/uL (0.11-0.59); Monocytes % (auto) 14.5 %; Neutrophils # (auto) 3.21 K/uL (1.4-6.5); Neutrophils % (auto) 47.1 %; Platelet Count 313 K/uL (130-400); RDW Coefficient of Variation 15.9 % (11.5-14.5); Red Blood Count 3.24 M/uL (4.2-5.4); White Blood Count 6.82 K/uL (4.8-10.8)
[2021-05-06 07:58] LABS: INR 1.7 (0.9-1.1); Prothrombin Time 16.6 Seconds (9.0-12.0)
[2021-05-06 08:30] LABS: BUN Creatinine Ratio 7.4 (10-20); Calcium 8.7 mg/dl (8.5-10.1); Est GFR (African American) 6.7 ml/min; Est GFR (Non-African American) 5.8 ml/min; Potassium 4.1 mmol/L (3.5-5.1)
[2021-05-06] MEDS: METOPROLOL TARTRATE 25 MG TAB PO SCH ×2 (08:58→20:53)
[2021-05-06] MEDS: GABAPENTIN 100 MG CAP PO SCH (08:59)
[2021-05-06] MEDS: SERTRALINE HCL 50 MG TABLET PO SCH (08:59)
[2021-05-06] MEDS: amLODIPine BESYLATE 5 MG TAB PO SCH (08:59)
--- NOTE | 2021-05-06 08:59 | Hospitalist Progress Note ---
Date of Service May 06, 2021 Assessment & Plan (1) ESRD on dialysis: 89 yo F Hx ESRD on HD TTS, hypothyroidism, AFib on chronic warfarin, DM2 on insulin, Hx ESBL UTI, recent left knee injury admitted for fatigue and confusion in context of missing dialysis and acute UTI. Stable, near mental baseline. metabolic encephalopathy secondary to missed dialysis vs UTI - as per below. missed dialysis session and has acute UTI - head CT reviewed. no acute changes. chronic complete opacification of the right sphenoid sinus - confusion improved compared to at admission. still noticeably confused on 05/05 AM (forgot she had dialysis yesterday); pattern more consistent w/ mild cognitive impairment - added fall precautions on 05/05 ESRD on dialysis - Missed 05/01 dialysis (Sat) - Electrolytes stable, repeat in AM. - Nephrology consulted. dialysis session 05/04 evening and on 05/06 UTI with Hx ESBL: - History of ESBL UTI in the past sensitive to carbapenems. - Was placed on cipro outpatient for "cloudy urine". Per patient, missed 2 doses on weekend. Has not experienced urinary symptoms. + mild LLQ TTP which could be from cystitis. - While confusion and fatigue likely mostly due to missed dialysis cannot rule out UTI as possible cause, will start ertapenem. prelim BC w/ 100k+CFU gram neg bacilli. result: ESBL ecoli, sensitive to augmentin. will transition to PO augmentin upon dispo. Continue ertapenem while inpatient because treatment options limited by sensitivities. Will maximize time w/ IV. Hypotension - soft BPs on 05/05 w/ low of 88/46 - holding home hydralazine 100 mg PO BID. BPs normotensive rest of the day. Ambulatory dysfunction, left knee pain, chronic back pain: - Stable enough for therapy. will benefit from PT/OT eval - Has history of chronic back pain on tylenol, lidocaine patches, prn low dose oxycodone BID. - With recent fall and left knee pain; has follow up with Ortho. - Tylenol 1000mg q8h scheduled, with scheduled lidocaine patches as well. prn oxycodone 2.5mg BID for severe pain and prior to PT/OT. - 05/05 holding oxycodone PRN order d/t risk of delirium. patient has not needed any oxycodone - 05/05 PM: held home gabapentin 300-400mg qhs because may contribution to sedation/confusion. continued gabapentin 100 mg qam Hypothyroidism: - Chronic, on daily levothyroxine 112mcg daily. - TSH elevated to 7 with normal T4. - Suspect patient's fatigue is due to missed dialysis and deconditioning rather than hypothyroidism. - Continue home dose with repeat TSH / FT4 by PCP with change to dose as appropriate. DM2 on insulin: - Continue home Lantus with SSI. - DM2 diet. AFib on warfarin: - History of, on warfarin therapy. - Has been subtherapeutic for several months per EMR. - INR 1.9 in ER. - At admission, increased patient's warfarin to 7.5mg Mon/Mon, all other days 5mg (increase of 2.5mg weekly). - INR 1.7 on 05/06. will provide 7.5mg today. Daily INR. HTN, HLD: - Stable. Continue metoprolol and hydralazine, atorvastatin. Code Status: DNR/DNI, confirmed at admission FEN: Dialysis Renal, DM2 diet DVT ppx: warfarin, adjusted as above Dispo: Med/Surg with Telemetry. OT recs HH vs inpt OT. PT recs inpt rehab. tentative dispo to [facility]. waiting on SNF auth (2) Diabetes mellitus with diabetic neuropathy: (3) AF (paroxysmal atrial fibrillation): (4) Acute UTI: (5) Ambulatory dysfunction: (6) Fatigue: (7) Hypothyroidism: (8) Left knee pain: Admission and Anticipated Discharge Date Admission Date: May 03, 2021 Supervising Physician Co-Signing Physician Notes I personally examined the patient and verified all barton points of history and exam, discussed case, and agree with decision making with Dr Sherwood. resting comfortably. no new problems. for SNF/rehab emphasis - hopefully tomorrow Vitals noted, no distress. HEENT normocephalic atraumatic mucous membranes are moist. Breathing unlabored no accessory muscle use good effort. Skin shows no rashes no pallor or icterus. No focal neuro deficits at rest. Metabolic encephalopathy in the setting of UTI and ESRDdifficult to rule in or out contribution from UTI -- seems reasonable to treat as though UTI as part of our encephalopathy picture. That said it seems much more likely that missing dialysis, particularly combined with some of her chronic medicines such as gabapentin, are bigger contributors to her encephalopathy. continue ertapenem and HD. for SNF / rehab emphasis Subjective No new complaints. Pain at L knee and back unchanged. Ate breakfast. Denies confusion. ROS neg Review of Systems Review of Systems: Constitutional: Denies fever, chills, weight change Eyes: Denies blurry vision, vision changes ENT: Denies sore throat, sinus pain Cardiovascular: Denies chest pain, palpitations Respiratory: Denies shortness of breath Gastrointestinal: Denies abdominal pain, nausea, vomiting, constipation, diarrhea Genitourinary: Denies urinary symptoms including dysuria Musculoskeletal: See HPI Neurological: Denies headache, numbness, tingling, focal weakness Physical Exam Physical Exam: General: A&Ox4. NAD. Cooperative. HEENT: Atraumatic, normocephalic. Pulm: CTAB. -wheezes, -rales, -rhonchi. No respiratory distress. Cardiac: RRR, -mrg. Abdominal: very slight llq ttp, nondistended, soft. Msk: L knee TTP. Mild edema. Results & Data Results & Data ([facility]) Vital Signs (Past 12 Hours) Vital Signs Temp Pulse Pulse Resp BP BP Pulse Ox 05/06/21 08:25 36.8 C 59 L 20 130/69 96 05/06/21 02:46 36.7 C 57 L 18 140/73 94 05/05/21 22:41 36.6 C 60 18 130/61 96 05/05/21 22:20 55 L Resident Activity Tracking Resident Involvement: Resident Care Provided Care Provided: Adult Hospital Medicine (1) Fatigue Fatigue type: other Qualified Code(s): R53.83 - Other fatigue (2) Hypothyroidism Hypothyroidism type: acquired Qualified Code(s): E03.9 - Hypothyroidism, unspecified (3) Diabetes mellitus with diabetic neuropathy Diabetes mellitus marina manager insulin use: with marina manager use Diabetes mellitus type: type 2 Qualified Code(s): E11.40 - Type 2 diabetes mellitus with diabetic neuropathy, unspecified; Z79.4 - recovery collector (current) use of insulin (4) Left knee pain Chronicity: unspecified Qualified Code(s): M25.562 - Pain in left knee
[2021-05-06] MEDS: CALCIUM CARBONATE 500 MG CHEWABLE TAB PO SCH ×3 (09:00→17:17)
[2021-05-06] MEDS: INSULIN ASPART 100 UNITS/ML 3 ML PEN SQ SCH ×4 (09:03→20:56)
[2021-05-06] MEDS: LIDOCAINE 5% 1 PATCH TD SCH (09:03)
[2021-05-06] MEDS: INSULIN GLARGINE SOLOSTAR 100 UNITS/ML 3 ML PEN SQ SCH (09:03)
--- NOTE | 2021-05-06 10:12 | Nephrology Progress Note ---
Date of Service May 06, 2021 Assessment & Plan (1) ESRD (end stage renal disease) on dialysis: Mrs Pearce has ESRD secondary to diabetic nephropathy, on hemodialysis TTS at [facility] via left brachiocephalic AV fistula. Admitted to the hospital with confusion, altered mental status after missed dialysis over the weekend. she was also found to have UTI with ESBL, currently on ertapenem. Other w/u was unremarkable, blood pressure, volume status, electrolyte acceptable. Overall she is feeling much better and seems to be at her baseline. Blood pressure, volume status and electrolyte acceptable. Clinically she seems to have improved and at her baseline, no confusion noted. --dialysis today --dose medications for GFR less than 10, left arm nephrology precaution. --continue Nephrocaps daily, DANNA for hemoglobin less than 10.5 --encourage increased protein intake --waiting on DC decision to ? [facility] Will follow (2) Hypertension: (3) Hyperlipidemia: (4) Anemia: Admission and Anticipated Discharge Date Admission Date: May 03, 2021 Miladys Villatoro was seen this morning, overall she is feeling well and seems to be close to her baseline. blood pressure, vital sign and electrolyte acceptable. Review of Systems Review of Systems: All systems reviewed & are unremarkable except as noted in Subjective Physical Exam Constitutional: well developed and well nourished; no acute distress Respiratory: normal respiratory effort, lungs clear to auscultation Cardiovascular: RRR, no murmur, no edema Neurologic: moves all extremities and awake; not confused Psychiatric: A+Ox3, euthymic affect Results & Data ([facility]) Vital Signs (Past 12 Hours) Vital Signs Temp Pulse Pulse Resp BP BP Pulse Ox 05/06/21 08:25 36.8 C 59 L 20 130/69 96 05/06/21 02:46 36.7 C 57 L 18 140/73 94 05/05/21 22:41 36.6 C 60 18 130/61 96 05/05/21 22:20 55 L PG Care Time/CCT Total # of Minutes Spent Total Time Spent with Patient: Total time spent is greater than 50% in coordination of care (as documented) at patient's floor/unit and/or counseling patient: Coding Level of Care Code 70399 Subseq Hosp Care Lvl 2 Diagnoses ESRD (end stage renal disease) on dialysis N18.6; Z99.2 Hypertension I10 Hypertension type: essential hypertension Hyperlipidemia E78.5 Hyperlipidemia type: unspecified Anemia D64.9 Anemia type: unspecified type (1) Hypertension Hypertension type: essential hypertension Qualified Code(s): I10 - Essential (primary) hypertension (2) Hyperlipidemia Hyperlipidemia type: unspecified Qualified Code(s): E78.5 - Hyperlipidemia, unspecified (3) Anemia Anemia type: unspecified type Qualified Code(s): D64.9 - Anemia, unspecified
[2021-05-06] MEDS: WARFARIN SOD 5 MG TAB PO SCH (17:17)
[2021-05-06] MEDS ORDERED: WARFARIN SOD 2.5 MG TAB PO ONE (18:30)
--- NOTE | 2021-05-06 19:01 | Billing Data ---
Date of Service May 06, 2021 Coding Level of Care Code 63629 Subseq Hosp Care Lvl 1
[2021-05-06] MEDS: ATORVASTATIN 10 MG TAB PO SCH (20:56)
[2021-05-06] MEDS: ERTAPENEM SODIUM 500 MG in SODIUM CHLORIDE 0.9% 50 ML IV SCH (22:20)
[2021-05-07] MEDS: ACETAMINOPHEN 500 MG TAB PO SCH ×3 (06:16→22:51)
[2021-05-07] MEDS: LEVOTHYROXINE SODIUM 112 MCG TABLET PO SCH (06:17)
--- NOTE | 2021-05-07 08:39 | Hospitalist Progress Note ---
Date of Service May 07, 2021 Assessment & Plan (1) ESRD on dialysis: 89 yo F Hx ESRD on HD TTS, hypothyroidism, AFib on chronic warfarin, DM2 on insulin, Hx ESBL UTI, recent left knee injury admitted for fatigue and confusion in context of missing dialysis and acute UTI. Stable, near mental baseline. metabolic encephalopathy secondary to missed dialysis vs UTI - as per below. missed dialysis session and has acute UTI - head CT reviewed. no acute changes. chronic complete opacification of the right sphenoid sinus - confusion improved compared to at admission. still noticeably confused on 05/05 AM (forgot she had dialysis yesterday); pattern more consistent w/ mild cognitive impairment - added fall precautions on 05/05 ESRD on dialysis TThS - Missed 05/01 dialysis (Sat) - Electrolytes stable, repeat in AM. - Nephrology consulted. dialysis session 05/04 evening and on 05/06 UTI with Hx ESBL: - History of ESBL UTI in the past sensitive to carbapenems. - Was placed on cipro outpatient for "cloudy urine". Per patient, missed 2 doses on weekend. Has not experienced urinary symptoms. + mild LLQ TTP which could be from cystitis. - While confusion and fatigue likely mostly due to missed dialysis cannot rule out UTI as possible cause, will start ertapenem. prelim BC w/ 100k+CFU gram neg bacilli. result: ESBL ecoli, sensitive to augmentin. - 05/07 update: per pharmacy, PO augmentin not recommended for ESBL UTI. will continue ertapenem. day 1 was 05/03 11pm. 05/09 will be day 7. discussed w/ bilingual patient support caseworker. May be able to keep regular peripheral IV if dispo to [facility] is on 05/09 Acute diarrhea - since 05/06-05/07 overnight - likely 2/2 ertapenem. abx options limited. will attempt to finish 7 day course - added probiotics - if diarrhea worsens, can test for c diff Hypotension - soft BPs on 05/05 w/ low of 88/46 - holding home hydralazine 100 mg PO BID. BPs normotensive rest of the day. recommend discontinuation of this medication when discharged as patient's BPs have been in moderate ranges even w/o Ambulatory dysfunction, left knee pain, chronic back pain: - Stable enough for therapy. will benefit from PT/OT eval - Has history of chronic back pain on tylenol, lidocaine patches, prn low dose oxycodone BID. - With recent fall and left knee pain; has follow up with Ortho. - Tylenol 1000mg q8h scheduled, with scheduled lidocaine patches as well. prn oxycodone 2.5mg BID for severe pain and prior to PT/OT. - 05/05 holding oxycodone PRN order d/t risk of delirium. patient has not needed any oxycodone - 05/05 PM: held home gabapentin 300-400mg qhs because may contribution to sedation/confusion. continued gabapentin 100 mg qam - recommend discontinue the qhs gabapentin when discharged home Hypothyroidism: - Chronic, on daily levothyroxine 112mcg daily. - TSH elevated to 7 with normal T4. - Suspect patient's fatigue is due to missed dialysis and deconditioning rather than hypothyroidism. - Continue home dose with repeat TSH / FT4 by PCP with change to dose as appropriate. DM2 on insulin: - A1c 6.8 in 01/2021 - DM2 diet. - per pharmacy, 2u of Lantus is very small and it is questionable if patient needs to be on this medication - reviewed BSG records, 90s-150s this admission. prior admissions, patient had BSGs in upper 100s - will continue lantus 2u daily for now and defer to PCP regarding changes. continue SSI as well while patient AFib on warfarin: - History of, on warfarin therapy. goal INR 2-3. - Has been subtherapeutic for several months per EMR. - INR 1.9 in ER. - At admission, increased patient's warfarin to 7.5mg Mon/Mon, all other days 5mg (increase of 2.5mg weekly). - INR 1.7 on 05/06, provided 7.5 mg on 05/06. INR 1.8 on 05/07. Defer adding 2.5mg to 05/07 because INR can take close to a week to reflect changes from warfarin doses. Daily INR. HTN, HLD: - Stable. Continue metoprolol and hydralazine, atorvastatin. Code Status: DNR/DNI, confirmed at admission FEN: Dialysis Renal, DM2 diet DVT ppx: warfarin, adjusted as above Dispo: Med/Surg with Telemetry. OT recs HH vs inpt OT. PT recs inpt rehab. tentative dispo to [facility] on 05/09 (2) Diabetes mellitus with diabetic neuropathy: (3) AF (paroxysmal atrial fibrillation): (4) Acute UTI: (5) Ambulatory dysfunction: (6) Fatigue: (7) Hypothyroidism: (8) Left knee pain: Admission and Anticipated Discharge Date Admission Date: May 03, 2021 Supervising Physician Co-Signing Physician Notes I personally examined the patient and verified all barton points of history and exam, discussed case, and agree with decision making with Dr Sherwood. Unfortunately now SNF will not be able to be until probably Monday. Discussed this with patienthe asked about being able to go home and then going to SNF for rehab afterwardsI discussed with her quite frankly that unfortunately almost everyone who knows her home situation feels she is very unsafe in her current situation. She expressed understanding of this. Vitals noted, no distress. HEENT normocephalic atraumatic mucous membranes are moist. Breathing unlabored no accessory muscle use good effort. Skin shows no rashes no pallor or icterus. No focal neuro deficits Metabolic encephalopathy in the setting of UTI and ESRDdifficult to rule in or out contribution from UTI -- seems reasonable to treat as though UTI as part of our encephalopathy picture. That said it seems much more likely that missing dialysis, particularly combined with some of her chronic medicines such as gabapentin, are bigger contributors to her encephalopathy. continue ertapenem (seems to be causing some diarrheatrial of probioticsbut further change in antibiotics would likely worsen the diarrhea given overall context) and HD. for SNF / rehab emphasis Diarrhealikely antibiotic associatedtrial of probiotics to reign in symptoms, low threshold to evaluate for C. difficile but clinically this does not appear likely at this time. Subjective Patient wants to go home because she is worried about her . She states she is not aware of any new changes in health but that she would rather be home to take care of him. + multiple episodes of diarrhea overnight. No other concerns. She is feeling fine. Knee pain and mild back pain unchanged. Spoke w/ patient's daughter on phone and updated her on plans for [facility]. Discussed patient's concerns about . Per daughter, no acute changes to her father. He has chronic dementia. Review of Systems Review of Systems: All systems reviewed & are unremarkable except as noted in HPI & below Physical Exam Physical Exam: General: Grossly A&O. NAD. Cooperative. HEENT: Atraumatic, normocephalic. EOMI Pulm: Mild-mod diffuse inspiratory crackles. No respiratory distress. Cardiac: RRR, -mrg. Abdominal: Nontender, nondistended, soft. Psych: Slightly depressed affect. Results & Data Results & Data ([facility]) Vital Signs (Past 12 Hours) Vital Signs Temp Pulse Pulse Resp BP Pulse Ox 05/07/21 07:43 37.0 C 61 18 166/81 H 95 05/07/21 07:00 62 05/07/21 02:58 36.7 C 63 18 110/60 95 05/07/21 00:30 65 05/06/21 22:23 36.8 C 70 18 124/60 94 Resident Activity Tracking Resident Involvement: Resident Care Provided Care Provided: Adult Hospital Medicine (1) Fatigue Fatigue type: other Qualified Code(s): R53.83 - Other fatigue (2) Hypothyroidism Hypothyroidism type: acquired Qualified Code(s): E03.9 - Hypothyroidism, unspecified (3) Diabetes mellitus with diabetic neuropathy Diabetes mellitus intermediate accountant insulin use: with intermediate accountant use Diabetes mellitus type: type 2 Qualified Code(s): E11.40 - Type 2 diabetes mellitus with diabetic neuropathy, unspecified; Z79.4 - intermediate accountant (current) use of insulin (4) Left knee pain Chronicity: unspecified Qualified Code(s): M25.562 - Pain in left knee
[2021-05-07 09:27] LABS: INR 1.8 (0.9-1.1); Prothrombin Time 17.3 Seconds (9.0-12.0)
[2021-05-07] MEDS: INSULIN ASPART 100 UNITS/ML 3 ML PEN SQ SCH ×4 (10:10→21:25)
[2021-05-07] MEDS: INSULIN GLARGINE SOLOSTAR 100 UNITS/ML 3 ML PEN SQ SCH (10:10)
[2021-05-07] MEDS: CALCIUM CARBONATE 500 MG CHEWABLE TAB PO SCH ×3 (10:11→17:00)
[2021-05-07] MEDS: amLODIPine BESYLATE 5 MG TAB PO SCH (10:11)
[2021-05-07] MEDS: METOPROLOL TARTRATE 25 MG TAB PO SCH ×2 (10:11→21:07)
[2021-05-07] MEDS: SERTRALINE HCL 50 MG TABLET PO SCH (10:11)
[2021-05-07] MEDS: GABAPENTIN 100 MG CAP PO SCH (10:11)
[2021-05-07] MEDS: LIDOCAINE 5% 1 PATCH TD SCH (10:12)
[2021-05-07 10:14] LABS: BUN Creatinine Ratio 5.7 (10-20); Calcium 9.2 mg/dl (8.5-10.1); Est GFR (African American) 10.6 ml/min; Est GFR (Non-African American) 9.1 ml/min; Potassium 4.2 mmol/L (3.5-5.1)
[2021-05-07 10:17] LABS: Folate (Folic Acid) > 20.00 ng/ml (>5.38); Vitamin B12 800 pg/ml (193-986)
--- NOTE | 2021-05-07 11:52 | Nephrology Progress Note ---
Date of Service May 07, 2021 Assessment & Plan (1) ESRD (end stage renal disease) on dialysis: Mrs Pearce has ESRD secondary to diabetic nephropathy, on hemodialysis TTS at [facility] via left brachiocephalic AV fistula. Admitted to the hospital with confusion, altered mental status after missed dialysis over the weekend. she was also found to have UTI with ESBL, currently on ertapenem. Other w/u was unremarkable, blood pressure, volume status, electrolyte acceptable. Overall she is feeling much better and seems to be at her baseline. Blood pressure, volume status and electrolyte acceptable. --Continue intermittent hemodialysis Monday, plan for dialysis tomorrow. Waiting for discharge possibly to [facility] although she continue to wish to go home instead of rehab but unfortunately she has been doing poorly with physical and occupational therapy and not safe to go home. --dose medications for GFR less than 10, left arm nephrology precaution. --continue Nephrocaps daily, DANNA for hemoglobin less than 10.5 --encourage increased protein intake Will follow (2) Hypertension: (3) Hyperlipidemia: (4) Anemia: Admission and Anticipated Discharge Date Admission Date: May 03, 2021 Subjective Shauna overall feels well, denies any shortness of breath or chest pain. Had physical therapy and occupational therapy this morning but she was not able to do much by herself and needed full assistance. had dialysis yesterday, currently blood pressure, electrolyte, volume status acceptable. Review of Systems Review of Systems: All systems reviewed & are unremarkable except as noted in Subjective Physical Exam Constitutional: WD/WN, vitals as above well developed and well nourished; no acute distress Respiratory: normal respiratory effort, lungs clear to auscultation no cough Auscultation: no crackles, no rales and no wheezes Cardiovascular: RRR, no murmur, no edema Skin: no rashes, warm and dry Neurologic: moves all extremities and awake; no focal motor deficits and not confused Psychiatric: A+Ox3, euthymic affect Results & Data ([facility]) Vital Signs (Past 12 Hours) Vital Signs Temp Pulse Pulse Pulse Resp BP Pulse Ox 05/07/21 10:45 36.7 C 57 L 19 135/55 L 96 05/07/21 10:09 64 127/63 05/07/21 07:43 37.0 C 61 18 166/81 H 95 07/09/21 07:00 62 05/07/21 02:58 36.7 C 63 18 110/60 95 05/07/21 00:30 65 PG Care Time/CCT Total # of Minutes Spent Total Time Spent with Patient: Total time spent is greater than 50% in coordination of care (as documented) at patient's floor/unit and/or counseling patient: Coding Level of Care Code 34491 Subseq Hosp Care Lvl 2 Diagnoses ESRD (end stage renal disease) on dialysis N18.6; Z99.2 Hypertension I10 Hypertension type: essential hypertension Hyperlipidemia E78.5 Hyperlipidemia type: unspecified Anemia D64.9 Anemia type: unspecified type (1) Hypertension Hypertension type: essential hypertension Qualified Code(s): I10 - Essential (primary) hypertension (2) Hyperlipidemia Hyperlipidemia type: unspecified Qualified Code(s): E78.5 - Hyperlipidemia, unspecified (3) Anemia Anemia type: unspecified type Qualified Code(s): D64.9 - Anemia, unspecified
--- NOTE | 2021-05-07 16:14 | Billing Data ---
Date of Service May 07, 2021 Coding Level of Care Code 52806 Subseq Hosp Care Lvl 2
[2021-05-07] MEDS ORDERED: AMOXICILLIN/CLAVULANATE 500 MG TAB PO SCH (16:30)
[2021-05-07] MEDS: WARFARIN SOD 5 MG TAB PO SCH (17:00)
[2021-05-07] MEDS: ADVANCED PROBIOTIC 1250 MG CAPSULE PO SCH (21:05)
[2021-05-07] MEDS: ATORVASTATIN 10 MG TAB PO SCH (21:06)
[2021-05-07] MEDS: ERTAPENEM SODIUM 500 MG in SODIUM CHLORIDE 0.9% 50 ML IV SCH (22:51)
[2021-05-08] MEDS: LEVOTHYROXINE SODIUM 112 MCG TABLET PO SCH (06:25)
[2021-05-08] MEDS: ACETAMINOPHEN 500 MG TAB PO SCH ×3 (06:25→21:17)
[2021-05-08] MEDS ORDERED: SODIUM CHLORIDE 0.9% 1000ML 1,000 ML IV PRN (07:00)
--- NOTE | 2021-05-08 07:06 | Hospitalist Progress Note ---
Date of Service May 08, 2021 Assessment & Plan (1) ESRD on dialysis: 89 yo F Hx ESRD on HD TTS, hypothyroidism, AFib on chronic warfarin, DM2 on insulin, Hx ESBL UTI, recent left knee injury admitted for fatigue and confusion in context of missing dialysis and acute UTI. Stable, near mental baseline. Metabolic Encephalopathy 2/2 UTI in addition to missing dialysis -Patient had missed dialysis prior to admission in addition to having a UTI -Mentating improved this AM, alert to person and situation -Urine culture with E. Coli ESBL sensitive to Ertapenem -Continue Ertapenem for 7 day course, will complete prior to DC ESRD on Dialysis -Dialysis on T, , S -Nephrology consulted -Nephrocaps daily -Plan for Dialysis today per Nephrology Diarrhea - since 05/06-05/07 overnight - likely 2/2 ertapenem. abx options limited. will attempt to finish 7 day course - added probiotics - Appears resolved per patient this AM, continue to monitor Hypotension - resolved -Most notably on 05/04 into 05/05 with pressures as low as 88/46 -Home hydralazine 100mg PO BID held at that time -Pressures acceptable on home Norvasc and Metoprolol -Consider continuing to hold hydralazine outpatient Ambulatory dysfunction, left knee pain, chronic back pain: - PT/OT - Tylenol q8h sched - Lidocaine patch PRN - Gabapentin 100mg 100qAM - Home Oxycodone and Gabapentin qHS held due to concern for sedation/confusion. Hypothyroidism: - Chronic, on daily levothyroxine 112mcg daily. - TSH elevated to 7 with normal T4 in acute infection - Repeat TSH 6 weeks after discharge. DM2 on insulin: - A1c 6.8 in 01/2021 - DM2 diet. - Continue Lantus 2u QD AFib on warfarin: - History of, on warfarin therapy. goal INR 2-3. - Has been subtherapeutic for several months per EMR. - At admission, increased patient's warfarin to 7.5mg Mon/Wed, all other days 5mg (increase of 2.5mg weekly). - INR this AM 2.1, continue daily INR while inpatient Code Status: DNR/DNI, confirmed at admission FEN: Dialysis Renal, DM2 diet DVT ppx: warfarin Dispo: Med/Surg with Telemetry. Plan to DC to [facility] at 13:00 on 05/09/21 (2) Diabetes mellitus with diabetic neuropathy: (3) AF (paroxysmal atrial fibrillation): (4) Acute UTI: (5) Ambulatory dysfunction: (6) Fatigue: (7) Hypothyroidism: (8) Left knee pain: Admission and Anticipated Discharge Date Admission Date: May 03, 2021 Supervising Physician Co-Signing Physician Notes I personally supervised Jorje Brunson DO on this patient's care. I interviewed and examined the patient independently of him. Seen in the afternoon. She is alert to situation, but very sad about not being able to go home. Repeatedly states, "They don't want me to go home." Reports no fevers/chills, chest pain, shortness of breath, abdominal pain, nausea, or vomiting. Received HD today. Plan to finish ertapenem prior to discharge. Subjective Patient evaluated at bedside. Patient noting being tired and wanting to sleep today, but agreeable to exam. Oriented to person and understanding that she will need to go to [facility] for SNF placement prior to being able to return home. Feeling much better this morning. Denies any SOB, Chest pain, NVD, fever, chills. Review of Systems Review of Systems: All systems reviewed & are unremarkable except as noted in Subjective Physical Exam Constitutional: cooperative; no acute distress Eyes: PERRL, conjunctivae normal, anicteric sclerae Respiratory: normal respiratory effort, lungs clear to auscultation Cardiovascular: Rate/Rhythm: regular rate and regular rhythm Heart Sounds: + murmur (2/6 JAEL ) Extremities: + AV fistula (Palpable thrill on L arm brachiocephalic AV fistula ) Gastrointestinal (Abdomen): normal bowel sounds, soft, nontender, no hepatosplenomegaly Psychiatric: Orientation: alert, oriented to person and cooperative Results & Data Results & Data ([facility]) Vital Signs (Past 12 Hours) Vital Signs Temp Pulse Pulse Pulse Pulse Resp BP 05/08/21 02:37 37.0 C 58 L 16 116/52 L 05/07/21 23:11 37.0 C 59 L 16 147/57 H 05/07/21 22:20 60 05/07/21 21:05 57 L 139/56 L 05/07/21 19:26 36.9 C 54 L 18 97/47 L Pulse Ox 05/08/21 02:37 96 05/07/21 23:11 95 05/07/21 22:20 05/07/21 21:05 05/07/21 19:26 96 Resident Activity Tracking Resident Involvement: Resident Care Provided Care Provided: Adult Hospital Medicine (1) Fatigue Fatigue type: other Qualified Code(s): R53.83 - Other fatigue (2) Hypothyroidism Hypothyroidism type: acquired Qualified Code(s): E03.9 - Hypothyroidism, unspecified (3) Diabetes mellitus with diabetic neuropathy Diabetes mellitus penitentiary insulin use: with intermediate frame tender use Diabetes mellitus type: type 2 Qualified Code(s): E11.40 - Type 2 diabetes mellitus with diabetic neuropathy, unspecified; Z79.4 - residential (current) use of insulin (4) Left knee pain Chronicity: unspecified Qualified Code(s): M25.562 - Pain in left knee
[2021-05-08 07:21] LABS: Basophils # (auto) 0.04 K/uL (0-0.2); Basophils % (auto) 0.5 %; Eosinophils # (auto) 0.29 K/uL (0-0.5); Eosinophils % (auto) 3.4 %; Hematocrit (blood only) 33.6 % (37-47); Hemoglobin 10.9 g/dL (12.0-16.0); Immature Granulocytes # (auto) 0.03 K/uL (0.00-0.02); Immature Granulocytes % (auto) 0.4 %; Lymphocytes # (auto) 2.06 K/uL (1.2-3.4); Lymphocytes % (auto) 24.4 %; Mean Corpuscular Hemoglobin 33.2 pg (25-34); Mean Corpuscular Hgb Conc 32.4 g/dL (32-36); Mean Corpuscular Volume 102.4 fL (80-100); Mean Platelet Volume 9.1 fL (7.4-10.4); Monocytes # (auto) 1.06 K/uL (0.11-0.59); Monocytes % (auto) 12.6 %; Neutrophils # (auto) 4.96 K/uL (1.4-6.5); Neutrophils % (auto) 58.7 %; Platelet Count 287 K/uL (130-400); RDW Coefficient of Variation 15.6 % (11.5-14.5); RDW Standard Deviation 58.7 fL (36.4-46.3); Red Blood Count 3.28 M/uL (4.2-5.4); White Blood Count 8.44 K/uL (4.8-10.8)
[2021-05-08 07:37] LABS: INR 2.1 (0.9-1.1)
[2021-05-08 07:57] LABS: Calcium 8.6 mg/dl (8.5-10.1); Creatinine Clr Calc Pharmacy 7.5 ml/min; Est GFR (African American) 7.6 ml/min; Est GFR (Non-African American) 6.5 ml/min
[2021-05-08] MEDS: INSULIN ASPART 100 UNITS/ML 3 ML PEN SQ SCH ×4 (08:07→21:08)
[2021-05-08] MEDS: amLODIPine BESYLATE 5 MG TAB PO SCH (08:08)
[2021-05-08] MEDS: CALCIUM CARBONATE 500 MG CHEWABLE TAB PO SCH ×3 (08:08→17:35)
[2021-05-08] MEDS: GABAPENTIN 100 MG CAP PO SCH (08:09)
[2021-05-08] MEDS: LIDOCAINE 5% 1 PATCH TD SCH (08:10)
[2021-05-08] MEDS: INSULIN GLARGINE SOLOSTAR 100 UNITS/ML 3 ML PEN SQ SCH (08:10)
[2021-05-08] MEDS: METOPROLOL TARTRATE 25 MG TAB PO SCH ×2 (08:11→21:17)
[2021-05-08] MEDS: NEPHROCAPS PO SCH (08:11)
[2021-05-08] MEDS: SERTRALINE HCL 50 MG TABLET PO SCH (08:12)
--- NOTE | 2021-05-08 11:54 | Nephrology Progress Note ---
Date of Service May 08, 2021 Assessment & Plan (1) ESRD (end stage renal disease) on dialysis: ESRD secondary to diabetic nephropathy. HD TTS at [facility]. Left brachiocephalic AV fistula. Orders for HD today entered into EMR and reviewed with HD nurse. Qb at goal. Clearance slightly low but acceptable. UF goal adjusted to EDW. Blood pressure acceptable. Nephrocaps daily. (2) Hypertension: BP and volume status acceptable. No change to therapy. (3) Anemia: Chronic, stable. DANNA therapy held for Hgb >10.5. (4) Infection due to ESBL-producing Escherichia coli: Remains on ertapenem for ESBL UTI. Admission and Anticipated Discharge Date Admission Date: May 03, 2021 Subjective No acute events overnight. Shauna was seen and evaluated prior to and during hemodialysis this AM. She is tolerating HD well. Review of Systems Review of Systems: All systems reviewed & are unremarkable except as noted in HPI & below Physical Exam Constitutional: well developed; no acute distress Eyes: no scleral abnormality and no corneal abnormality ENMT: Mouth: no oral mucosal abnormality and oral mucous membranes not dry Neck: normal visual inspection and trachea midline Respiratory: normal respiratory effort Auscultation: lungs clear to auscultation bilaterally Cardiovascular: Rate/Rhythm: regular rate Heart Sounds: normal S1 and normal S2 Extremities: + AV fistula; no edema Musculoskeletal: Extremities: no cyanosis and no clubbing Skin: normal turgor; no lesions Neurologic: Motor/Sensory: no tremor and no asterixis Psychiatric: Orientation: alert and oriented x 3 Results & Data ([facility]) Vital Signs (Past 12 Hours) Vital Signs Temp Pulse Pulse Pulse Pulse Resp BP 05/08/21 11:40 84 126/59 L 05/08/21 11:20 80 144/63 H 05/08/21 11:00 78 137/54 L 05/08/21 10:59 65 05/08/21 10:40 75 139/65 05/08/21 10:20 68 141/60 H 05/08/21 10:00 69 153/59 H 05/08/21 09:40 60 150/59 H 05/08/21 09:20 70 149/60 H 05/08/21 08:56 60 149/60 H 05/08/21 08:50 37.3 C 70 05/08/21 07:49 37.3 C 56 L 16 05/08/21 02:37 37.0 C 58 L 16 BP BP Pulse Ox 05/08/21 11:40 05/08/21 11:20 05/08/21 11:00 05/08/21 10:59 05/08/21 10:40 05/08/21 10:20 05/08/21 10:00 05/08/21 09:40 05/08/21 09:20 05/08/21 08:56 05/08/21 08:50 05/08/21 07:49 135/51 L 94 05/08/21 02:37 116/52 L 96 Laboratory Results Laboratory Results - last 24 hr 05/07/21 05/07/21 05/08/21 16:50 20:12 07:05 WBC RBC Hgb Hct MCV MCH MCHC RDW Std Deviation RDW Coeff of Jon Plt Count MPV Immature Gran % (Auto) Neut % (Auto) Lymph % (Auto) [place] % (Auto) Eos % (Auto) Baso % (Auto) Neut # (Auto) Lymph # (Auto) [place] # (Auto) Eos # (Auto) Baso # (Auto) Immature Gran # (Auto) PT 20.0 H INR 2.1 H Sodium Potassium Chloride Carbon Dioxide Anion Gap BUN Creatinine Est Cr Clr Drug Dosing Est GFR ( Amer) Est GFR (Non-Af Amer) BUN/Creatinine Ratio Glucose POC Glucose 97 105 H Calcium 05/08/21 05/08/21 05/08/21 07:05 07:05 07:35 WBC 8.44 RBC 3.28 L Hgb 10.9 L Hct 33.6 L MCV 102.4 H MCH 33.2 MCHC 32.4 RDW Std Deviation 58.7 H RDW Coeff of Jon 15.6 H Plt Count 287 MPV 9.1 Immature Gran % (Auto) 0.4 Neut % (Auto) 58.7 Lymph % (Auto) 24.4 [place] % (Auto) 12.6 Eos % (Auto) 3.4 Baso % (Auto) 0.5 Neut # (Auto) 4.96 Lymph # (Auto) 2.06 [place] # (Auto) 1.06 H Eos # (Auto) 0.29 Baso # (Auto) 0.04 Immature Gran # (Auto) 0.03 H PT INR Sodium 136 Potassium 4.0 Chloride 100 Carbon Dioxide 27 Anion Gap 9.0 BUN 32 H Creatinine 5.38 H* D Est Cr Clr Drug Dosing 7.5 Est GFR ( Amer) 7.6 Est GFR (Non-Af Amer) 6.5 BUN/Creatinine Ratio 6.0 L Glucose 89 POC Glucose 86 Calcium 8.6 PG Care Time/CCT Total # of Minutes Spent Total Time Spent with Patient: Total time spent is greater than 50% in coordination of care (as documented) at patient's floor/unit and/or counseling patient: Coding Level of Care Code 17431 Subseq Hosp Care Lvl 3 Diagnoses ESRD (end stage renal disease) on dialysis N18.6; Z99.2 Hypertension I10 Hypertension type: essential hypertension Anemia D64.9 Anemia type: unspecified type Infection due to ESBL-producing Escherichia coli A49.8; Z16.12 (1) Hypertension Hypertension type: essential hypertension Qualified Code(s): I10 - Essential (primary) hypertension (2) Anemia Anemia type: unspecified type Qualified Code(s): D64.9 - Anemia, unspecified
[2021-05-08] MEDS: ERTAPENEM SODIUM 500 MG in SODIUM CHLORIDE 0.9% 50 ML IV SCH (16:27)
[2021-05-08] MEDS: WARFARIN SOD 5 MG TAB PO SCH (16:33)
[2021-05-08] MEDS: ADVANCED PROBIOTIC 1250 MG CAPSULE PO SCH (17:35)
--- NOTE | 2021-05-08 17:42 | Billing Data ---
Date of Service May 08, 2021 Coding Level of Care Code 09592 Initial Inpt Care Lvl 2
[2021-05-08] MEDS: ATORVASTATIN 10 MG TAB PO SCH (21:18)
[2021-05-09] MEDS: ACETAMINOPHEN 500 MG TAB PO SCH (06:11)
[2021-05-09] MEDS: LEVOTHYROXINE SODIUM 112 MCG TABLET PO SCH (06:12)
[2021-05-09 06:55] LABS: Basophils # (auto) 0.04 K/uL (0-0.2); Basophils % (auto) 0.5 %; Eosinophils # (auto) 0.28 K/uL (0-0.5); Eosinophils % (auto) 3.3 %; Hemoglobin 11.6 g/dL (12.0-16.0); Immature Granulocytes # (auto) 0.04 K/uL (0.00-0.02); Immature Granulocytes % (auto) 0.5 %; Lymphocytes # (auto) 2.34 K/uL (1.2-3.4); Lymphocytes % (auto) 27.6 %; Mean Corpuscular Hemoglobin 33.1 pg (25-34); Mean Corpuscular Hgb Conc 32.2 g/dL (32-36); Mean Corpuscular Volume 102.9 fL (80-100); Mean Platelet Volume 9.1 fL (7.4-10.4); Monocytes # (auto) 1.24 K/uL (0.11-0.59); Monocytes % (auto) 14.6 %; Neutrophils # (auto) 4.55 K/uL (1.4-6.5); Neutrophils % (auto) 53.5 %; Platelet Count 288 K/uL (130-400); RDW Coefficient of Variation 15.6 % (11.5-14.5); RDW Standard Deviation 58.7 fL (36.4-46.3); White Blood Count 8.49 K/uL (4.8-10.8)
[2021-05-09 07:13] LABS: BUN Creatinine Ratio 5.9 (10-20); Calcium 8.8 mg/dl (8.5-10.1); Creatinine Clr Calc Pharmacy 10.6 ml/min; Est GFR (African American) 11.7 ml/min; Est GFR (Non-African American) 10.1 ml/min; Potassium 3.8 mmol/L (3.5-5.1)
[2021-05-09 07:15] LABS: INR 1.5 (0.9-1.1); Prothrombin Time 15.1 Seconds (9.0-12.0)
--- NOTE | 2021-05-09 08:15 | Discharge Summary ---
Date of Service May 09, 2021 Admission HPI Per Admitting Provider 89 yo F Hx ESRD on HD TTS, hypothyroidism, AFib on chronic warfarin, DM2 on insulin, anemia of chronic disease, Hx ESBL UTI, HTN, chronic low back pain, left ACL injury presented to the ER for 1 day of overwhelming fatigue and mild confusion. Patient herself is coherent and able to answer to all questions. Patient's caregiver is present to answer questions as well as patient's daughter over the phone. Patient has been on cipro for several days by PCP for suspicion for UTI due to "cloudy urine". Patient herself does not endorse dysuria, hematuria, abdominal pain, nausea or vomiting. On Monday her caregivers were having difficulty with getting her ready for dialysis and she did not make her dialysis appointment. Yesterday she started feeling tired, and herself does not remember yesterday. Today family and caregivers were concerned when she was falling asleep while eating at the table. In the ER patient was found to have creatinine 7 with BUN/Cr ratio of 8, K 4.5, normal vitals, elevated TSH. UA with epithelials, but also notable for bacteria, WBCs, blood. CT Head and CXR without acute pathologies. Admission Exam Per Admitting Provider Constitutional: WD/WN, vitals as above Eyes: PERRL, conjunctivae normal, anicteric sclerae ENMT: external ear and nose normal, oropharynx normal Neck: normal visual inspection Respiratory: normal respiratory effort, lungs clear to auscultation Cardiovascular: Rate/Rhythm: + irregularly irregular Heart Sounds: no murmur Extremities: + edema (1+ bilateral LE pitting edema) Gastrointestinal (Abdomen): normal bowel sounds, soft, nontender, no hepatosplenomegaly Musculoskeletal: no cyanosis or clubbing, extremities motor strength 5/5 Skin: no rashes, warm and dry Neurologic: AAOx3, normal speech No tremor Psychiatric: A+Ox3, euthymic affect Principal Diagnosis Metabolic Encephalopathy secondary to ESBL E. Coli UTI Discharge Exam Constitutional cooperative; no acute distress Eyes PERRL, conjunctivae normal, anicteric sclerae Respiratory normal respiratory effort, lungs clear to auscultation Cardiovascular Rate/Rhythm: regular rate and regular rhythm Heart Sounds: + murmur (2/6 JAEL ) Extremities: + AV fistula (Palpable thrill on L arm brachiocephalic AV fistula ) Gastrointestinal (Abdomen) normal bowel sounds, soft, nontender, no hepatosplenomegaly Psychiatric Orientation: alert, oriented to person and cooperative Discharge Data Allergies Allergy/AdvReac Type Severity Reaction Status Date / Time No Known Allergies Allergy Verified 05/03/21 21:25 Consultations 05/03/21 21:25 ED Decision to Admit Stat 05/03/21 22:21 Consult Nephrology Routine Ordered Studies 05/03/21 19:46 CT head/brain wo con Stat Hospital Course (1) ESRD on dialysis: 89 yo F Hx ESRD on HD TTS, hypothyroidism, AFib on chronic warfarin, DM2 on insulin, Hx ESBL UTI, recent left knee injury admitted for fatigue and con fusion in context of missing dialysis and acute UTI. Stable, near mental baseline. Metabolic Encephalopathy 2/2 UTI in addition to missing dialysis -Patient had missed dialysis prior to admission in addition to having a UTI -Mentating well on DC day, alert to person, location, situation -Urine culture with E. Coli ESBL sensitive to Ertapenem -Continued Ertapenem for 7 day course and completed prior to DC ESRD on Dialysis -Dialysis on , , S -Nephrology was consulted -Nephrocaps daily can resume home Taylor-caps on DC -Last Dialysis on 05/08/21 Diarrhea - Notable on 05/06-05/07 overnight - likely 2/2 ertapenem. abx options limited. will attempt to finish 7 day course - added probiotics - Appears resolved Hypotension - resolved -Most notably on 05/04 into 05/05 with pressures as low as 88/46 -Home hydralazine 100mg PO BID held at that time -Pressures acceptable on home Norvasc and Metoprolol -Continuing to hold hydralazine outpatient, resume per PCP if blood pressures elevated Ambulatory dysfunction, left knee pain, chronic back pain: - PT/OT - Tylenol q8h sched while inpatient, resume home med regiment on discharge. - Lidocaine patch PRN - Gabapentin 100mg 100qAM - Home Oxycodone and Gabapentin qHS held due to concern for sedation/confusion. - Can resume home Oxycodone PRN after discharge and monitor for worsening mentation Hypothyroidism: - Chronic, on daily levothyroxine 112mcg daily. - TSH elevated to 7 with normal T4 in acute infection - Repeat TSH 6 weeks after discharge. DM2 on insulin: - A1c 6.8 in 01/2021 - DM2 diet. - Continued Lantus 2u QD AFib on warfarin: - History of, on warfarin therapy. goal INR 2-3. - Has been subtherapeutic for several months per EMR. - At admission, increased patient's warfarin to 7.5mg Mon/Wed, all other days 5mg (increase of 2.5mg weekly) see regiment and adjust per INR - INR 1.5 on day of discharge 05/09/21 Code Status: DNR/DNI, confirmed at admission Dispo: Med/Surg with Telemetry. Plan to DC to [facility] at 13:00 on 05/09/21 (2) Diabetes mellitus with diabetic neuropathy: (3) AF (paroxysmal atrial fibrillation): (4) Acute UTI: (5) Ambulatory dysfunction: (6) Fatigue: (7) Hypothyroidism: (8) Left knee pain: Total Time Total Time Spent Total Time Spent (In Minutes): 35 Discharge Plan Discharge Items Patient Disposition: Transfer Custodial Fac Reason For Visit: CONFUSION, MISSED DIALYSIS, UTI Discharge Diagnosis: missed dialysis, UTI Activity: Per Instructions section Non-emergency contact: Primary Care Provider and [employer] Manager Call non-emergency contact if: you have any medication questions and you have a fever Follow-up/Referrals: Mauri Hinojosa MD [Primary Care Provider] - Diet: Carb Consistent or DM2 and Dialysis Renal Addtl Attending Provider Instructions: 89 yo F Hx ESRD on HD TTS, hypothyroidism, AFib on chronic warfarin, DM2 on insulin, Hx ESBL UTI, recent left knee injury admitted for fatigue and confusion in context of missing dialysis and acute UTI. Stable, near mental baseline. Metabolic Encephalopathy 2/2 UTI in addition to missing dialysis -Patient had missed dialysis prior to admission in addition to having a UTI -Mentating well on DC day, alert to person and situation -Urine culture with E. Coli ESBL sensitive to Ertapenem -Continued Ertapenem for 7 day course and completed prior to DC ESRD on Dialysis -Dialysis on , -Nephrology was consulted -Nephrocaps daily can resume home Taylor-caps on DC -Last Dialysis on 05/08/21 Diarrhea - Notable on 05/06-05/07 overnight - likely 2/2 ertapenem. abx options limited. will attempt to finish 7 day course - added probiotics - Appears resolved Hypotension - resolved -Most notably on 05/04 into 05/05 with pressures as low as 88/46 -Home hydralazine 100mg PO BID held at that time -Pressures acceptable on home Norvasc and Metoprolol -Continuing to hold hydralazine outpatient, resume per PCP if blood pressures elevated Ambulatory dysfunction, left knee pain, chronic back pain: - PT/OT - Tylenol q8h sched while inpatient, resume home med regiment on discharge. - Lidocaine patch PRN - Gabapentin 100mg 100qAM - Home Oxycodone and Gabapentin qHS held due to concern for sedation/confusion. - Can resume home Oxycodone PRN after discharge and monitor for worsening mentation Hypothyroidism: - Chronic, on daily levothyroxine 112mcg daily. - TSH elevated to 7 with normal T4 in acute infection - Repeat TSH 6 weeks after discharge. DM2 on insulin: - A1c 6.8 in 01/2021 - DM2 diet. - Continued Lantus 2u QD AFib on warfarin: - History of, on warfarin therapy. goal INR 2-3. - Has been subtherapeutic for several months per EMR. - At admission, increased patient's warfarin to 7.5mg Mon/Wed, all other days 5mg (increase of 2.5mg weekly) see regiment and adjust per INR - INR 1.5 on day of discharge 05/09/21 Code Status: DNR/DNI, confirmed at admission Dispo: Med/Surg with Telemetry. Plan to DC to [facility] at 13:00 on 05/09/21 Pending Studies at Discharge: No Stand-Alone Forms: My [facility] Skilled Items Patient informed of condition?: Yes DNR: Yes Discharge Level of Care: Skilled Communicable Disease: No Discharge Prognosis: Stable Lines: None Urinary Catheter: No Medications and DC Order Prescriptions: Continued (DME) pen needle, diabetic [BD Ultra-Fine [place] Pen Needle] 32 gauge x 5/32" needle See Dose Instructions .ROUTE .MEDSUPPLY Qty: 400 RF: 3 (DME) FreeStyle Frieda 14 Day Sensor Kit See Rx Instructions [id number] .MEDSUPPLY Qty: 1 RF: 11 sertraline 25 mg tablet 25 mg PO QAM Qty: 90 RF: 3 metoprolol tartrate 25 mg tablet 25 mg PO BID Qty: 60 RF: 5 atorvastatin 10 mg tablet 10 mg PO HS Qty: 90 RF: 3 gabapentin 100 mg capsule 100 mg PO QAM Qty: 30 RF: 5 levothyroxine 112 mcg tablet 112 mcg PO QAM Qty: 30 RF: 5 PreserVision AREDS [id number] pxnd-jn-nrad capsule 1 cap PO BID Qty: 60 RF: 5 furosemide 20 mg tablet 20 mg PO BIDM Qty: 60 RF: 5 acetaminophen 325 mg tablet 650 mg PO BID PRN (Reason: fever or pain) RF: 0 (DME) OneTouch Verio test strips Strip See Rx Instructions .ROUTE .MEDSUPPLY RF: 0 (DME) lancets [OneTouch Delica Plus Lancet] 33 gauge misc See Rx Instructions .ROUTE .MEDSUPPLY RF: 0 (DME) FreeStyle Frieda 2 Sensor Kit See Rx Instructions miscellaneous .MEDSUPPLY Qty: 2 RF: 11 glucose [Dex4 Glucose] 4 gram Tablet,Chewable 4 g PO UD PRN (Reason: hypoglycemia) Qty: 30 RF: 0 lidocaine 5 % adhesive patch,medicated 3 patch transdermal QAM RF: 0 amlodipine 5 mg tablet 5 mg PO QAM RF: 0 warfarin 5 mg tablet 5 - 7.5 mg PO [id number] RF: 0 oxycodone 5 mg tablet 2.5 mg PO BID PRN (Reason: pain) RF: 0 insulin aspart U-100 [Novolog Flexpen U-100 Insulin] 100 unit/mL (3 mL) in sulin pen 0 unit subcut DIRECTED RF: 0 Lantus Solostar U-100 Insulin 100 unit/mL (3 mL) insulin pen 2 unit subcut QAM RF: 0 calcium carbonate [Tums] 300 mg (750 mg) Tablet,Chewable 300 mg PO TIDM RF: 0 Virt-Caps 1 mg Capsule 1 cap PO QAM RF: 0 Discontinued hydralazine 100 mg tablet 100 mg PO BID Qty: 60 RF: 5 ciprofloxacin HCl [Cipro] 250 mg tablet 250 mg PO BID 5 Days Qty: 10 RF: 0 gabapentin 400 mg capsule 400 mg PO DIRECTED RF: 0 gabapentin 300 mg capsule 300 mg PO DIRECTED RF: 0 Discharge Orders: Discharge Order (Routine); Ordered 05/09/21 Ordered By: Jorje Brunson Admission Data Admit Date/Time: 05/03/21 22:21 Attending Provider: Robert Monsalve Admit Provider: Annalee Arce Primary Care Provider: Mauri Hinojosa V. Other Providers: Bhavya Fermin ; Sabino Palma ; Mike Lee ; Suzi Nettles ; Braden Tripathi ; Annie Fermin ; [facility] ; [facility] Other Interventions: Discharge Summary Assessment (RN) Last Done: 05/09/21 12:07 Supervising Physician Co-Signing Physician Notes I personally supervised Jorje Brunson DO on this patient's care. I interviewed and examined the patient independently of him. Seen in this morning. She remains alert to situation, but very sad about not being able to go home. She tells me "They want to keep me from my ." Reports no fevers/chills, chest pain, shortness of breath, abdominal pain, nausea, or vomiting. - Finished ertapenem prior to discharge. Appears to be at baseline mental status. Resident Activity Tracking Resident Involvement: Resident Care Provided Care Provided: Adult Hospital Medicine
[2021-05-09] MEDS: INSULIN ASPART 100 UNITS/ML 3 ML PEN SQ SCH ×2 (09:49→12:29)
[2021-05-09] MEDS: SERTRALINE HCL 50 MG TABLET PO SCH (09:52)
[2021-05-09] MEDS: NEPHROCAPS PO SCH (09:53)
[2021-05-09] MEDS: METOPROLOL TARTRATE 25 MG TAB PO SCH (09:53)
[2021-05-09] MEDS: amLODIPine BESYLATE 5 MG TAB PO SCH (09:54)
[2021-05-09] MEDS: GABAPENTIN 100 MG CAP PO SCH (09:54)
[2021-05-09] MEDS: CALCIUM CARBONATE 500 MG CHEWABLE TAB PO SCH ×2 (09:55→12:38)
[2021-05-09] MEDS: LIDOCAINE 5% 1 PATCH TD SCH (09:56)
[2021-05-09] MEDS: INSULIN GLARGINE SOLOSTAR 100 UNITS/ML 3 ML PEN SQ SCH (10:00)
--- NOTE | 2021-05-09 11:18 | Nephrology Progress Note ---
Date of Service May 09, 2021 Assessment & Plan (1) ESRD (end stage renal disease) on dialysis: ESRD secondary to diabetic nephropathy. HD TTS at [facility]. Left brachiocephalic AV fistula. Electrolytes controlled. BP and volume status acceptable. Nephrocaps daily. Medications appropriate for kidney dysfunction. (2) Hypertension: BP and volume status acceptable. No change to therapy. (3) Anemia: Chronic, stable. DANNA therapy held for Hgb >10.5. (4) Infection due to ESBL-producing Escherichia coli: Remains on ertapenem for ESBL UTI. Admission and Anticipated Discharge Date Admission Date: May 03, 2021 Miladys Villatoro was seen and evaluated in her hospital room this AM. She tolerated HD yesterday without complications. Net UF 2 L. She is breathing comfortably and feels well this AM. She did relate some anxiety about her and not returning home. I discussed this with the bedside nurse. Review of Systems Review of Systems: All systems reviewed & are unremarkable except as noted in HPI & below Physical Exam Constitutional: well developed; no acute distress Eyes: no scleral abnormality and no corneal abnormality ENMT: Mouth: no oral mucosal abnormality and oral mucous membranes not dry Neck: normal visual inspection and trachea midline Respiratory: normal respiratory effort Auscultation: lungs clear to auscultation bilaterally Cardiovascular: Rate/Rhythm: regular rate Heart Sounds: normal S1 and normal S2 Extremities: + AV fistula; no edema Musculoskeletal: Extremities: no cyanosis and no clubbing Skin: normal turgor; no lesions Neurologic: Motor/Sensory: no tremor and no asterixis Psychiatric: Orientation: alert and oriented x 3 Results & Data ([facility]) Vital Signs (Past 12 Hours) Vital Signs Temp Pulse Resp BP Pulse Ox 05/09/21 03:49 36.9 C 64 16 122/65 96 Laboratory Results Laboratory Results - last 24 hr 05/08/21 05/08/21 05/08/21 13:33 16:34 19:47 WBC RBC Hgb Hct MCV MCH MCHC RDW Std Deviation RDW Coeff of Jon Plt Count MPV Immature Gran % (Auto) Neut % (Auto) Lymph % (Auto) [place] % (Auto) Eos % (Auto) Baso % (Auto) Neut # (Auto) Lymph # (Auto) [place] # (Auto) Eos # (Auto) Baso # (Auto) Immature Gran # (Auto) PT INR Sodium Potassium Chloride Carbon Dioxide Anion Gap BUN Creatinine Est Cr Clr Drug Dosing Est GFR ( Amer) Est GFR (Non-Af Amer) BUN/Creatinine Ratio Glucose POC Glucose 103 H 149 H 94 Calcium 05/09/21 05/09/21 05/09/21 06:43 06:43 06:43 WBC 8.49 RBC 3.50 L Hgb 11.6 L Hct 36.0 L MCV 102.9 H MCH 33.1 MCHC 32.2 RDW Std Deviation 58.7 H RDW Coeff of Jon 15.6 H Plt Count 288 MPV 9.1 Immature Gran % (Auto) 0.5 Neut % (Auto) 53.5 Lymph % (Auto) 27.6 [place] % (Auto) 14.6 Eos % (Auto) 3.3 Baso % (Auto) 0.5 Neut # (Auto) 4.55 Lymph # (Auto) 2.34 [place] # (Auto) 1.24 H Eos # (Auto) 0.28 Baso # (Auto) 0.04 Immature Gran # (Auto) 0.04 H PT 15.1 H INR 1.5 H Sodium 138 Potassium 3.8 Chloride 101 Carbon Dioxide 30 Anion Gap 7.0 BUN 22 H Creatinine 3.75 H D Est Cr Clr Drug Dosing 10.6 Est GFR ( Amer) 11.7 Est GFR (Non-Af Amer) 10.1 BUN/Creatinine Ratio 5.9 L Glucose 90 POC Glucose Calcium 8.8 05/09/21 07:40 WBC RBC Hgb Hct MCV MCH MCHC RDW Std Deviation RDW Coeff of Jon Plt Count MPV Immature Gran % (Auto) Neut % (Auto) Lymph % (Auto) [place] % (Auto) Eos % (Auto) Baso % (Auto) Neut # (Auto) Lymph # (Auto) [place] # (Auto) Eos # (Auto) Baso # (Auto) Immature Gran # (Auto) PT INR Sodium Potassium Chloride Carbon Dioxide Anion Gap BUN Creatinine Est Cr Clr Drug Dosing Est GFR ( Amer) Est GFR (Non-Af Amer) BUN/Creatinine Ratio Glucose POC Glucose 103 H Calcium PG Care Time/CCT Total # of Minutes Spent Total Time Spent with Patient: Total time spent is greater than 50% in coordination of care (as documented) at patient's floor/unit and/or counseling patient: Coding Level of Care Code 97425 Subseq Hosp Care Lvl 3 Diagnoses ESRD (end stage renal disease) on dialysis N18.6; Z99.2 Hypertension I10 Hypertension type: essential hypertension Anemia D64.9 Anemia type: unspecified type Infection due to ESBL-producing Escherichia coli A49.8; Z16.12 (1) Hypertension Hypertension type: essential hypertension Qualified Code(s): I10 - Essential (primary) hypertension (2) Anemia Anemia type: unspecified type Qualified Code(s): D64.9 - Anemia, unspecified
[2021-05-09] MEDS: ERTAPENEM SODIUM 500 MG in SODIUM CHLORIDE 0.9% 50 ML IV SCH (12:22)
--- NOTE | 2021-05-09 12:23 | Billing Data ---
Date of Service May 09, 2021 Coding Level of Care Code D/C Day Management >30 mins
== END 2021-05-09 13:19 ==
LOC: ED 18:20 → 2W 22:21 → INTOOBSV 22:21 → SUATTDRO 22:21 → 2W 05-04 00:10